=== PATIENT | female | born 1945 | race Caucasian/White ===

== ENCOUNTER → 2017-11-24 09:35 | Outpatient (CLI) | payer MEDICARE, OTHER, SELFPAY ==
[2017-11-24 11:24] LABS: AST(SGOT) 16 U/L (15-37); Alanine Aminotransfer ALT/SGPT 19 U/L (13-56); Albumin, Serum 3.5 g/dL (3.2-5.0); Alkaline Phosphatase 92 U/L (45-117); Cholesterol 258 mg/dL (200); Globulin 3.7 g/dL (2.2-4.2); High Density Lipoprotein 53 mg/dL; Protein, Total 7.2 g/dL (6.4-8.2); Triglycerides 283 mg/dL; Very Low Density Lipoprotein 57 mg/dL (5-40)
[2017-11-29 11:51] LABS: Thyroid Stim Hormone (TSH) 4.05 uIU/mL (0.358-3.74)
== END ==
PROVIDERS: Family Provider Internal Medicine; PCP Internal Medicine; Visit Provider Internal Medicine Cardiovascular Disease
DX: E78.5 Hyperlipidemia, unspecified (principal); Z79.899 Other long term (current) drug therapy
CPT/HCPCS: 36415; 80061; 80076; 84436; 84443

== ENCOUNTER → 2017-12-13 14:56 | Outpatient (CLI) | payer MEDICARE, OTHER, SELFPAY | PROVIDERS: Family Provider Internal Medicine; PCP Internal Medicine; Visit Provider Physician Assistant Medical | DX: R05 Cough (principal) | CPT/HCPCS: 87070; 87205 ==

== ENCOUNTER 2017-12-16 20:20 | Inpatient (IN) | payer MEDICARE, OTHER, SELFPAY ==
[2017-12-16] VITALS (16 sets, daily range): BP systolic 63–185; BP diastolic 38–138; PULSE 92–123; RESP 12–48; TEMP 35.6–39.2; O2SAT 95–100; BMI 35.4; BMI 39.6; BMI 39.7
--- NOTE | 2017-12-16 20:26 | EKG12_ITS ---
Test Reason : SOB Blood Pressure : / mmHG Vent. Rate : 099 BPM Atrial Rate : 099 BPM P-R Int : 154 ms QRS Dur : 094 ms QT Int : 364 ms P-R-T Axes : 073 031 078 degrees QTc Int : 467 ms Normal sinus rhythm Nonspecific ST abnormality Abnormal ECG Confirmed by DAKSHA HERCULES, KATHLEEN ([id number]), writer editor DANYA REILLY ([id number]) on 12/20/2017 8:37:21 AM Referred By: Paty Mullen Confirmed By:KATHLEEN CROOKS MD
--- NOTE | 2017-12-16 20:30 | ED.RN ---
Addendum entered by Jose Balderas 12/16/17 21:07: CORRECTION. PATIENT DID HAVE AN OLD EKG IN MUSE AND GAVE IT TO PHYSICIAN. Original Note: NO OLD EKG'S IN MUSE.
--- NOTE | 2017-12-16 20:32 | RAD_ITS ---
STUDY: X-RAY CHEST REASON FOR EXAM: Female, 72 years old. Shortness of breath TECHNIQUE: Single AP portable view of the chest. COMPARISON: 03/26/2017. FINDINGS: The lungs are clear and expanded. There is no demonstrated pleural abnormality. There is mild cardiac enlargement. Patient status post sternotomy. Normal mediastinum and mariam. Normal visualized pulmonary arteries. Normal visualized aortic arch and descending thoracic aorta. Normal visualized thoracic spine. Normal visualized ribs, clavicles, and shoulders. There is no demonstrated abnormality of the visualized soft tissue structures of the upper abdomen. RAD/Chest 1 View (Portable) IMPRESSION: Cardiomegaly. No acute infiltrate. Electronically Signed: Eric Cole DO at 21:42 EDT , Service support ,
--- NOTE | 2017-12-16 20:42 | RAD_ITS ---
STUDY: X-RAY CHEST REASON FOR EXAM: Female, 72 years old. Intubation TECHNIQUE: A single frontal view of the chest was obtained. COMPARISON: Chest radiograph from the same day FINDINGS: An endotracheal tube terminates about 5.3 cm above the millie. A gastric tube extends into the upper abdomen. The lungs are adequately aerated. There are minimal increased markings in both lung bases. There is no demonstrated pleural abnormality. The cardiac silhouette is normal in size. The mediastinum and hilar regions are unremarkable. Normal visualized pulmonary arteries. There is atherosclerotic calcification of the thoracic aorta. Sternotomy wires and plates are present. There are diffuse degenerative changes of the visualized spine. There are degenerative changes in both shoulders. There is no demonstrated abnormality of the visualized upper abdomen. RAD/Chest 1 View (Portable) IMPRESSION: The endotracheal tube terminates about 5.3 cm above the millie. A gastric tube extends into the upper abdomen. There is bibasilar atelectasis. Electronically Signed: Angie Jamison MD at 22:03 EDT Tel Direct: [phone], Service support ,
[2017-12-16 20:46] LABS: Allen Test POS; Base Excess -2 mmol/L (-2 to +2); Bicarbonate 24.7 mmol/L (22-26); Blood Gas Specimen Type ART; EPAP 7; FI02 40; IPAP 18; PO2 85 mmHG (75-100); RR 12; SITE L Radial; SO2 95 % (95-99); Time Given 2035; Total Carbon Dioxide 26 mmol/L; pCO2 53.1 mmHg (35-45); pH 7.28 (7.35-7.45)
[2017-12-16] MEDS: Etomidate 20 MG/10 ML Vial IV (20:46)
[2017-12-16] MEDS: Rocuronium Bromide 50 MG/5 ML Vial 100 MG IV (20:47)
[2017-12-16 20:51] LABS: Absolute Lymphocyte Count 3.18 X10^3/ul (0.83-4.51); Absolute Neutrophil Count 10.2 X10^3/uL (2.0-7.7); Basophil# 0.08 X10^3/uL; Basophil% 0.5 % (0-1); Eosinophil# 0.05 X10^3/uL; Eosinophils% 0.3 % (0-5); Hematocrit 47.4 % (37-47); Hemoglobin 15.9 g/dl (12.0-15.0); Lymphocyte # 3.18 X10^3/ul (4.0); Mean Corp Hgb Conc 33.5 g/gl (32-36); Mean Corpuscular Hgb 29.6 pg (27.0-32.0); Mean Corpuscular Volume 88.1 fL (81-99); Mean Platelet Vol. 10.6 fl (6.2-12.0); Monocyte# 3.13 X10^3/uL; Monocyte% 18.7 % (0-10); Neutrophil # 10.19 X10^3/uL (2.7-7.7); Platelet Count 362 K/mm3 (150-450); RBC Distribution Width CV 13.7 % (11.6-14.6); RBC Distribution Width SD 43.6 fl (35.1-43.9); Red Blood Count 5.38 M/mm3 (4.2-5.4); White Blood Count 16.7 K/mm3 (4.4-11.0)
--- NOTE | 2017-12-16 20:55 | RAD_ITS ---
STUDY: X-RAY - ABDOMEN/PELVIS REASON FOR EXAM: Female, 72 years old. Gastric tube placement TECHNIQUE: A single AP view of the abdomen and pelvis was obtained. COMPARISON: CT abdomen and pelvis dated June 13, 2016 FINDINGS: There is minimal atelectasis in the lung bases. A gastric tube extends into the mid abdomen. There is an unremarkable bowel gas pattern. There is no demonstrated free abdominal air. There is no demonstrated abnormality of the major organs. Cholecystectomy clips are present. The soft tissues are unremarkable. There are mild degenerative changes in the visualized spine. RAD/Abdomen Single View (Portable) IMPRESSION: The tip of the gastric tube is in the expected location of the antrum of the stomach. Electronically Signed: Angie Jamison MD at 22:06 EDT Tel Direct: [phone], Service support ,
[2017-12-16 20:57] LABS: Differential Indicated SCAN CRITERIA MET; POSITIVE COUNT NO; POSITIVE DIFFERENTIAL YES; POSITIVE MORPHOLOGY NO
[2017-12-16 21:05] LABS: Anion Gap 9 (5-15); BUN 16 mg/dL (7-18); BUN/Creat Ratio 14.2 RATIO (10-20); Calcium,Total 8.5 mg/dL (8.5-10.1); Chloride 100 mmol/L (98-107); Creatinine, Serum 1.13 mg/dL (0.55-1.02); EST Glomerular Filtration Rate 50 mL/min (>60); Est Glom Filt Rate - Afr Amer 61 mL/min (>60); Estimated Creatinine Clearance 43.12 ml/min; Glucose 226 mg/dL (74-106); Potassium 4.4 mmol/L (3.5-5.1); Sodium Level 138 mmol/L (136-145)
--- NOTE | 2017-12-16 21:11 | ED.RN ---
PT WAS INTUBATED AT 2047 7.5 ET TUBE WITH GOOD COLOR CHANGE AND MANUAL VENTILATIONS, 23CM AT LIP LINE; INTUBATED BY DR. BRISENO/ AT 2048 DR. BRISENO PLACED O.G. AND IMMEDIATE RETURN OF BROWN DRAINAGE IN TUBING TO LOW INTERMITTENT SUCTION.
[2017-12-16 21:18] LABS: Reactive Lymphocyte 1+
[2017-12-16] MEDS: Ipratropium/Albuterol Sulfate 3 ML AMPUL.NEB INHALATION (21:18)
[2017-12-16] MEDS: Albuterol 2.5 MG/3 ML VIAL.NEB. INHALATION ×3 (21:18→21:57)
[2017-12-16 21:31] LABS: Bacteria 0 SEEN /hpf (None Seen); Mucous, Urine 0 SEEN /hpf (<or=2+); Squamous Epithelial Cells - UA 0 SEEN /hpf (5-10)
[2017-12-16 21:32] LABS: Color, Urine Yellow (Yellow); Glucose, Dipstick 100 mg/dl (Normal); Ketone-Dipstick Negative (Negative); Leukocyte Esterase-Dipstick Negative /ul (Negative); Nitrite-Dipstick Negative (Negative); Occult Blood-Urine 150 /ul (Negative); Protein-Dipstick 100 mg/dl (Negative); Specific Gravity, Urine 1.025 (1.002-1.030); Urine Bilirubin Dipstick Negative (Negative); Urine Clarity Sl. Cloudy (Clear); Urine Urobilinogen Normal (Normal)
[2017-12-16] MEDS: LORazepam 2 MG/ML Syringe 4 MG IV (21:40)
--- NOTE | 2017-12-16 21:50 | RAD_ITS ---
STUDY: X-RAY CHEST REASON FOR EXAM: Female, 72 years old. Central line placement TECHNIQUE: Single AP portable view of the chest. COMPARISON: 12/16/2017. FINDINGS: Endotracheal tube remains in place with the tip 6 cm above the millie at the thoracic inlet. NG tube tip remains in the stomach. Right subclavian central line in place with the tip in the lower SVC. EKG lead overlying the chest. The lungs are clear and expanded. There is no demonstrated pleural abnormality. Normal size heart. Patient status post sternotomy. Normal mediastinum and mariam. Normal visualized pulmonary arteries. Normal visualized aortic arch and descending thoracic aorta. Normal visualized thoracic spine. Normal visualized ribs, clavicles, and shoulders. There is no demonstrated abnormality of the visualized soft tissue structures of the upper abdomen. RAD/CXR for Line Placement IMPRESSION: Right subclavian central line in place with the tip in the lower SVC. No pneumothorax. Endotracheal tube and NG tube remain in stable position. No acute infiltrate. Electronically Signed: Eric Cole DO at 22:51 EDT , Service support ,
[2017-12-16 21:56] LABS: Amorphous Sediment 2+; Red Blood Cells-Urine 0-5 SEEN /hpf (0-5); White Blood Cells 5-10 SEEN /hpf (0-5)
[2017-12-16] MEDS: Acetaminophen 650 MG Suppository RECTAL (22:03)
[2017-12-16 22:10] LABS: BNP,B-Type NATRIURETIC PEPTIDE 261.8 pg/mL (0-100)
--- NOTE | 2017-12-16 22:12 | ED.VISSUMM ---
- ER Visit Summary Date of Service: 12/16/17 Chief Complaint: Respiratory distress History of Present Illness: The patient is a 72 F was brought to the emergency department by ambulance. Pulse ox upon their arrival was 64%. She was slumped over and not very responsive. CPAP was applied. By the time she arrived her saturation was 96%. She was not alert and communication was limited because of her respiratory distress. was informed. He states the shortness of breath started several days ago. She did have a cough. She nodded yes to productive cough. She also nodded yes to chest pain. Unable to describe quality or severity of the chest pain. She nodded no to any radiation. Per old records and there is no history of PE or DVT. History was limited secondary to patient's severity of illness. Review of old records reveals past history of coronary disease, [place], asthma, hypertension, hypothyroidism, dilated cardiomyopathy and paroxysmal atrial fibrillation. Past surgical history remarkable for four-vessel bypass surgery 2-3 years ago and cataract surgery. states her water quality specialist is Dr. Abraham Aburto. Physical Examination: Blood pressure 185/138, core temperature 102.6, heart rate 99, respiratory rate prior to intubation 52 and saturation of 95% on BiPAP. Blood gas was obtained and reveals acute respiratory failure with hypercapnia and hypoxia. Patient appears pale with cool mottled skin. Pupils are not really active or equal secondary to cataract surgery. TMs normal. Trachea midline. No carotid bruit. There is little to no air movement. Heart is regular. Abdomen is soft and nontender. No abdominal bruit was noted. Extremities were mottled and cool. There is no swelling of the lower extremities, discoloration or palpable cords. She is not alert and unable to assess orientation. She does move all extremities. Test Results: EKG was obtained also sinus rhythm rate of [address]-T wave changes. Portable x-ray #1 reveals rotation possible infiltrate right lower lobe. Portable x-ray #2 after intubation and OG placement reveals proper position of the endotracheal tube and OG tube and there is a difference noted right lower lobe consistent with an early infiltrate. Portable chest x-ray #3 reveals proper lying position of the right subclavian line with no evidence pneumothorax. White count is 16.7 thousand with no shift. BMP is remarkable for creatinine of 1.13 and glucose of 226. Urinalysis unremarkable. Troponin is less than 0.02. BNP is slightly of a 261. Lactate is 2.6. Emergency Department Course and Treatment: Blood gas was obtained to assess patient's acid-base status. After reviewing the results and noting patient has deteriorated she was prepped for oral tracheal intubation by RSI technique. A 7.5 K[place] endotracheal tube was placed without difficulty. Breath sounds were noted bilaterally and wheezing are noted bilaterally. There is appropriate color change on the capnometer. An orogastric tube was placed by me. Because of penicillin allergy and unable to asked patient what type of reaction she had she was treated with 750 mg levofloxacin IV piggyback and 2 g of Azactam. Treatment Plan: Patient has severe sepsis if lactate is greater than 4 by definition she has septic shock and will receive a 30 cc/kg bolus of normal saline. Review of chief executive run sheet revealed an initial blood pressure of 80 when she was hypoxic with a saturation of 64. Disposition: Admit to critical condition to the ICU Impression: 1. Acute respiratory failure with hypercapnia and hypoxia 2. Severe sepsis 3. Community acquired pneumonia 4. Hyperglycemia and type II diabetic 5. History of coronary disease 6. History of hypertension 7. History of dilated cardiomyopathy 8. History of hypothyroidism This note was generated with [employer] dictation software. It may contain incorrect words, spelling, and punctuation that were not noted in review of the chart prior to signing ED Disposition - Plan for ED Patient: Chief Complaint: Shortness of Breath Referrals: Christi Oswald MD [Primary Care Provider] -
[2017-12-16] MEDS: levoFLOXacin IV 750 MG/150 ML BAG 100 MG IV (22:15)
[2017-12-16 22:17] LABS: International Normalized Ratio 1.2; Partial Thromboplast Time 22.8 Seconds (24.1-36.2); Prothrombin Time (Protime)PT. 14.8 SECONDS (11.7-14.9)
--- NOTE | 2017-12-16 22:19 | ED.DCSUM_ITS ---
- ER Visit Summary Date of Service: 12/16/17 Chief Complaint: Respiratory distress History of Present Illness: The patient is a 72 F was brought to the emergency department by ambulance. Pulse ox upon their arrival was 64%. She was slumped over and not very responsive. CPAP was applied. By the time she arrived her saturation was 96%. She was not alert and communication was limited because of her respiratory distress. was informed. He states the shortness of breath started several days ago. She did have a cough. She nodded yes to productive cough. She also nodded yes to chest pain. Unable to describe quality or severity of the chest pain. She nodded no to any radiation. Per old records and there is no history of PE or DVT. History was limited secondary to patient's severity of illness. Review of old records reveals past history of coronary disease, [place], asthma, hypertension, hypothyroidism, dilated cardiomyopathy and paroxysmal atrial fibrillation. Past surgical history remarkable for four-vessel bypass surgery 2-3 years ago and cataract surgery. states her event technician is Dr. Abraham Aburto. Physical Examination: Blood pressure 185/138, core temperature 102.6, heart rate 99, respiratory rate prior to intubation 52 and saturation of 95% on BiPAP. Blood gas was obtained and reveals acute respiratory failure with hypercapnia and hypoxia. Patient appears pale with cool mottled skin. Pupils are not really active or equal secondary to cataract surgery. TMs normal. Trachea midline. No carotid bruit. There is little to no air movement. Heart is regular. Abdomen is soft and nontender. No abdominal bruit was noted. Extremities were mottled and cool. There is no swelling of the lower extremities, discoloration or palpable cords. She is not alert and unable to assess orientation. She does move all extremities. Test Results: EKG was obtained also sinus rhythm rate of [address]- T wave changes. Portable x-ray #1 reveals rotation possible infiltrate right lower lobe. Portable x-ray #2 after intubation and OG placement reveals proper position of the endotracheal tube and OG tube and there is a difference noted right lower lobe consistent with an early infiltrate. Portable chest x-ray #3 reveals proper lying position of the right subclavian line with no evidence pneumothorax. White count is 16.7 thousand with no shift. BMP is remarkable for creatinine of 1.13 and glucose of 226. Urinalysis unremarkable. Troponin is less than 0.02. BNP is slightly of a 261. Lactate is 2.6. Emergency Department Course and Treatment: Blood gas was obtained to assess patient's acid-base status. After reviewing the results and noting patient has deteriorated she was prepped for oral tracheal intubation by RSI technique. A 7.5 [place] endotracheal tube was placed without difficulty. Breath sounds were noted bilaterally and wheezing are noted bilaterally. There is appropriate color change on the capnometer. An orogastric tube was placed by me. Because of penicillin allergy and unable to asked patient what type of reaction she had she was treated with 750 mg levofloxacin IV piggyback and 2 g of Azactam. Treatment Plan: Patient has severe sepsis if lactate is greater than 4 by definition she has septic shock and will receive a 30 cc/kg bolus of normal saline. Review of interactive art director run sheet revealed an initial blood pressure of 80 when she was hypoxic with a saturation of 64. Disposition: Admit to critical condition to the ICU Impression: 1. Acute respiratory failure with hypercapnia and hypoxia 2. Severe sepsis 3. Community acquired pneumonia 4. Hyperglycemia and type II diabetic 5. History of coronary disease 6. History of hypertension 7. History of dilated cardiomyopathy 8. History of hypothyroidism This note was generated with [employer] dictation software. It may contain incorrect words, spelling, and punctuation that were not noted in review of the chart prior to signing ED Disposition - Plan for ED Patient: Chief Complaint: Shortness of Breath Referrals: Christi Oswald MD [Primary Care Provider] -
[2017-12-16 22:32] LABS: Lactic Acid 2.6 mmol/L (0.4-2.0)
[2017-12-16] MEDS: Propofol 10MG/Ml 1,000 MG/100 ML Bottle 3.084 MG CONT INF (22:52)
--- NOTE | 2017-12-16 23:02 | PCM.HP.STD ---
Problem List (1) Asthma Status: Chronic Qualifiers: (2) Restrictive lung disease Status: Chronic (3) Paroxysmal atrial fibrillation Status: Chronic (4) Dilated cardiomyopathy Status: Chronic (5) 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 The patient is a 72 year old F with past medical history as mentioned above presented to the emergency room because of shortness of breath and respiratory distress. At this time, patient is intubated, sedated and on mechanical ventilation. Patient's and daughter were at the bedside and her provided brief history. According to the , patient has been complaining of shortness of breath and productive cough over the last 3 days. Her symptoms has been getting worse over the course of the last 3 days, she saw her doctor 2 years ago who prescribed erythromycin and prednisone. Her symptoms did not get any better and she continued to worsen. called the squad and she was brought to the emergency room. Reportedly, her pulse ox is quite was 64% on room air. According to her physician, patient was not able to communicate and was not alert because of respiratory distress. She was started on CPAP and shortly after, patient became more lethargic, pale with cool mottled skin. She was intubated and started on mechanical ventilation. At this time, she is febrile, heart rate has been around 90s, blood pressure is stable and she is on mechanical ventilation. She had a history of asthma and according to her , it is severe and she has been on inhalers in addition to nebulizer treatment at home. She never been on oxygen at home. She has history of paroxysmal atrial fibrillation and she has been on amiodarone and metoprolol for rate control as well as Eliquis for anti-coagulation. At this time, she is in sinus rhythm. She has history of CAD status post CABG and she has been on aspirin, beta-blockers. Her routine blood work is remarkable for leukocytosis, otherwise unremarkable. Troponin was negative. Lactic acid was 2.6. BNP was 261. Chest x-ray revealed cardiomegaly, obliteration of the left costophrenic angle without evidence of acute infiltrate, consolidation or effusion. EKG revealed sinus rhythm without evidence of acute ischemic changes, rate has been in the 90s. Blood cultures drawn in the ER and she received 1 dose of IV Levaquin and aztreonam in the ER. She is being admitted for acute hypoxic respiratory failure probably due to acute asthma exacerbation and possible community-acquired pneumonia. Past Medical History Past Medical History (Chronic Problems): Chronic Problems (Last Updated 12/16/17 @ 22:38 by Melony Gonzalez MD) 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 heart disease (ASHD) (Chronic) Asthma (Chronic) Restrictive lung disease (Chronic) Paroxysmal atrial fibrillation (Chronic) Nonrheumatic tricuspid valve regurgitation (Chronic) Dilated cardiomyopathy (Chronic) 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) HTN (hypertension) (Chronic) Diabetes mellitus (Chronic) HLD (hyperlipidemia) (Chronic) DM type 2 (diabetes mellitus, type 2) (Chronic) Hypogammaglobulinemia (Chronic) Morbid obesity (Chronic) Migraines (Chronic) BARTOLO (obstructive sleep apnea) (Chronic) CAD (coronary artery disease) (Chronic) Allergies Beta-Blockers (Beta-Adrenergic Bloc Allergy (Verified 12/16/17 20:27) Shortness of breath doxycycline Allergy (Verified 12/16/17 20:27) Hives Penicillins Allergy (Verified 12/16/17 20:27) Rash red dye Allergy (Verified 12/16/17 20:27) Unknown Sulfa (Sulfonamide Antibiotics) Allergy (Verified 12/16/17 20:27) Rash theophylline Allergy (Verified 12/16/17 20:27) Rash codeine Adverse Reaction (Verified 12/16/17 20:27) Nausea Home Medications: Ambulatory Orders Medication Instructions Recorded Budesonide/Formoterol 160/4.5 2 puff INHALATION BID PRN 11/09/15 [Symbicort 160/4.5 Mcg Inhaler (SP)] Montelukast [Singulair] 10 mg PO DAILY 11/09/15 Acetaminophen [Tylenol Tablet] 650 mg PO Q8H PRN PRN #0 tab 12/04/15 Furosemide [Lasix] 20 mg PO DAILY #30 tab 12/04/15 Acetaminophen/Butalbital/Caffe 1 tab PO Q6H PRN PRN 03/26/17 [Fioricet] Ezetimibe [Zetia] 10 mg PO QHS 03/26/17 Metoprolol Tartrate [Lopressor 6.25 mg PO BID 03/26/17 (beta daniel)] Potassium Chloride [K-Dur] 20 meq PO TID 03/26/17 Aspirin E.C. [Ecotrin] 81 mg PO DAILY@0800 #60 tab 03/28/17 Carvedilol [Coreg (Beta Daniel)] 6.25 mg PO BID #60 tab 03/28/17 apixaban 5 mg tablet 5 mg PO BID #180 tab 08/19/17 amiodarone 200 mg tablet 100 mg PO QDAY tab 08/22/17 albuterol sulfate HFA 90 2 puff INHALATION Q4H PRN #1 device 09/08/17 mcg/actuation aerosol inhaler benzonatate 100 mg capsule 100 mg PO Q6H 10/19/17 fluticasone 50 mcg/actuation nasal 50 mcg INTRANASAL BID PRN 10/19/17 spray,suspension guaifenesin ER 600 mg tablet, 600 mg PO Q12H PRN 10/19/17 extended release 12 hr cyclobenzaprine 5 mg tablet 5 mg PO TID PRN #10 tab 10/21/17 levalbuterol 0.63 mg/3 mL solution 0.63 mg INHALATION Q4H PRN #120 10/28/17 for nebulization vial levothyroxine 50 mcg tablet 50 mcg PO QDAY #90 tab 12/02/17 prednisone 20 mg tablet 60 mg PO QDAY #15 tab 12/13/17 azithromycin 250 mg tablet 250 mg PO QDAY #6 tab 12/15/17 benzonatate 100 mg capsule 100 mg PO TID PRN #30 cap 12/15/17 Surgical History: cholecystectomy, coronary bypass surgery, hysterectomy Psychiatric History: No pertinent psych hx [employer] History: No pertinent [employer] history Lives: Spouse/ Significant Other Smoking Status: Never smoker Alcohol: None Drugs: None - *Family History Paternal History Items: Heart Disease Maternal History Items: Cancer Review of Systems Constitutional: Reports: - - Unobtainable, patient is intubated and sedated., - Eyes: Reports: - - Unobtainable, patient is intubated and sedated. HEENT: Reports: - - Unobtainable, patient is intubated and sedated. Cardiovascular: Reports: - - Unobtainable, patient is intubated and sedated. Respiratory: Reports: - - Unobtainable, patient is intubated and sedated. Gastrointestinal: Reports: - - Unobtainable, patient is intubated and sedated. Genitourinary: Reports: - - Unobtainable, patient is intubated and sedated. Musculoskeletal: Reports: - - Unobtainable, patient is intubated and sedated. Neurological: Reports: - - Unobtainable, patient is intubated and sedated. Psychiatric: Reports: - - Unobtainable, patient is intubated and sedated. VTE Information - Inpt Only VTE Present on Admission: No VTE Mechan Device Prophylaxis: SCD's VTE Pharm Prophylaxis ordered?: Yes - Physical Exam General: - - Intubated, sedated. HEENT: Atraumatic, PERRLA, EOMI Oral: Moist Mucosa, No Gingival or Mucosal Lesions/ Ulcerations Neck: Supple, No JVD, Negative Carotid Bruits, Trachea Midline, Thyroid Normal Size and Texture Lungs: Clear to auscultation, No rhonchi, No rales, Diminished, Wheezes Cardiovascular: Regular rate, Regular Rhythm, Normal S1, Normal S2, PMI Normal, Tachycardic Abdomen: Bowel Sounds Present, Soft, Non Tender, Non-Distended, No Hepato-splenomegaly, Obese Extremities: No clubbing, No cyanosis, No edema Skin: No rashes, No breakdown Lymphatic: No Cervical, Supraclavicular, or Inguinal Adenopathy Neurological: - - Unable to examine, patient is intubated and sedated. Psych/Mental Status: - - Unable to assess, patient is sedated. Vital Signs Temp Pulse Resp BP Pulse Ox 102.5 F H 94 16 111/99 H 97 12/16/17 22:33 12/16/17 22:33 12/16/17 22:33 12/16/17 22:33 12/16/17 22:33 Oxygen Delivery Method Mechanical Ventilator Weight: 226 lb 10.163 oz Body Mass Index (BMI) 35.4 Laboratory Tests Past 24 Hrs 12/16/17 12/16/17 12/16/17 20:34 20:34 20:34 WBC 16.7 H RBC 5.38 Hgb 15.9 H Hct 47.4 H MCV 88.1 MCH 29.6 MCHC 33.5 RDW 13.7 RDW Differential 43.6 Plt Count 362 MPV 10.6 Immature Gran % (Auto) 0.500 Neut % (Auto) 61.0 Lymph % (Auto) 19.0 [place] % (Auto) 18.7 H Eos % (Auto) 0.3 Baso % (Auto) 0.5 Absolute Neuts (auto) 10.2 H Absolute Lymphs (auto) 3.18 Total Counted Not Reportable Differential Comment Diff Path Review May foll Reactive Lymphocytes 1+ PT INR APTT Specimen Type Sample Site pH Bicarbonate Actual POC Total CO2 Base Excess O2 Saturation O2 % ABG pCO2 ABG pO2 Anibal Test Respiration Rate O2 Delivery Device EPAP IPAP Blood Gas Notified Whom Blood Gas Notified Time Sodium 138 Potassium 4.4 Chloride 100 Carbon Dioxide 29.0 Anion Gap 9 BUN 16 Creatinine 1.13 H Estim Creat Clear Calc 43.12 Est GFR (MDRD) Af Amer 61 Est GFR (MDRD) Non-Af 50 L BUN/Creatinine Ratio 14.2 Glucose 226 H Lactic Acid Calcium 8.5 Troponin I < 0.02 B-Natriuretic Peptide 261.8 H Urine Color Urine Clarity Urine pH Ur Specific [place] Urine Protein Urine Glucose (UA) Urine Ketones Urine Occult Blood Urine Nitrite Urine Bilirubin Urine Urobilinogen Ur Leukocyte Esterase Urine RBC Urine WBC Ur Squamous Epith Cells Amorphous Sediment Urine Bacteria Urine Mucus 12/16/17 12/16/17 12/16/17 20:39 21:25 21:50 WBC RBC Hgb Hct MCV MCH MCHC RDW RDW Differential Plt Count MPV Immature Gran % (Auto) Neut % (Auto) Lymph % (Auto) [place] % (Auto) Eos % (Auto) Baso % (Auto) Absolute Neuts (auto) Absolute Lymphs (auto) Total Counted Differential Comment Diff Path Review Reactive Lymphocytes PT 14.8 INR 1.2 APTT 22.8 L Specimen Type ART Sample Site L Radial pH 7.28 L Bicarbonate Actual 24.7 POC Total CO2 26 Base Excess -2 O2 Saturation 95 O2 % 40 ABG pCO2 53.1 H ABG pO2 85 Anibal Test POS Respiration Rate 12 O2 Delivery Device Bi / C PAP EPAP 7 IPAP 18 Blood Gas Notified Whom ED Blood Gas Notified Time 2034 Sodium Potassium Chloride Carbon Dioxide Anion Gap BUN Creatinine Estim Creat Clear Calc Est GFR (MDRD) Af Amer Est GFR (MDRD) Non-Af BUN/Creatinine Ratio Glucose Lactic Acid Calcium Troponin I B-Natriuretic Peptide Urine Color Yellow Urine Clarity Sl. Cloudy Urine pH 6.0 Ur Specific [place] 1.025 Urine Protein 100 H Urine Glucose (UA) 100 H Urine Ketones Negative Urine Occult Blood 150 H Urine Nitrite Negative Urine Bilirubin Negative Urine Urobilinogen Normal Ur Leukocyte Esterase Negative Urine RBC 0-5 SEEN Urine WBC 5-10 SEEN Ur Squamous Epith Cells 0 SEEN Amorphous Sediment 2+ Urine Bacteria 0 SEEN Urine Mucus 0 SEEN 12/16/17 21:50 WBC RBC Hgb Hct MCV MCH MCHC RDW RDW Differential Plt Count MPV Immature Gran % (Auto) Neut % (Auto) Lymph % (Auto) [place] % (Auto) Eos % (Auto) Baso % (Auto) Absolute Neuts (auto) Absolute Lymphs (auto) Total Counted Differential Comment Diff Path Review Reactive Lymphocytes PT INR APTT Specimen Type Sample Site pH Bicarbonate Actual POC Total CO2 Base Excess O2 Saturation O2 % ABG pCO2 ABG pO2 Anibal Test Respiration Rate O2 Delivery Device EPAP IPAP Blood Gas Notified Whom Blood Gas Notified Time Sodium Potassium Chloride Carbon Dioxide Anion Gap BUN Creatinine Estim Creat Clear Calc Est GFR (MDRD) Af Amer Est GFR (MDRD) Non-Af BUN/Creatinine Ratio Glucose Lactic Acid 2.6 H Calcium Troponin I B-Natriuretic Peptide Urine Color Urine Clarity Urine pH Ur Specific [place] Urine Protein Urine Glucose (UA) Urine Ketones Urine Occult Blood Urine Nitrite Urine Bilirubin Urine Urobilinogen Ur Leukocyte Esterase Urine RBC Urine WBC Ur Squamous Epith Cells Amorphous Sediment Urine Bacteria Urine Mucus Clinical Impression(s) from Imaging Studies Chest X-Ray 12/16/17 20:32 IMPRESSION: Cardiomegaly. No acute infiltrate. Electronically Signed: Eric Cole DO at 21:42 EDT , Service support , Chest X-Ray 12/16/17 20:42 IMPRESSION: The endotracheal tube terminates about 5.3 cm above the millie. A gastric tube extends into the upper abdomen. There is bibasilar atelectasis. Electronically Signed: Angie Jamison MD at 22:03 EDT Tel Direct: [phone], Service support , KUB X-Ray 12/16/17 20:55 IMPRESSION: The tip of the gastric tube is in the expected location of the antrum of the stomach. Electronically Signed: Angie Jamison MD at 22:06 EDT Tel Direct: [phone], Service support , Chest X-Ray 12/16/17 21:50 IMPRESSION: Right subclavian central line in place with the tip in the lower SVC. No pneumothorax. Endotracheal tube and NG tube remain in stable position. No acute infiltrate. Electronically Signed: Eric Cole DO at 22:51 EDT , Service support , Assessment/Plan This is a 72 years old female patient presented to the medicine because of significant shortness of breath and respiratory distress with pulse oximeter of 64% on room air, she was sleepy and lethargic which worsened shortly after arrival, intubated and started on mechanical ventilation for acute hypoxic respiratory failure which is probably due to acute asthma exacerbation versus possible early community acquired pneumonia. #1 acute hypoxic respiratory failure: Patient was on erythromycin and prednisone as outpatient for symptoms of productive cough and shortness of breath as well as wheezing. She has history of uncontrolled asthma according to the . She is not on home oxygen. Chest x-ray showed cardiomegaly and obliteration of the left costophrenic angle, no obvious infiltrate. She is in severe sepsis based on leukocytosis, acute respiratory failure and elevated lactic acid as well as probable source of infection. Blood cultures done, received 1 dose of IV Levaquin and aztreonam. ABG revealed pH of 7.28, PCO2 53 and PO2 of 85. Plan: Admit to ICU, continue same vent settings, ventilator care per protocol, continue IV propofol for sedation, urine culture, DuoNeb every 4 hours, IV Solu-Medrol, IV Levaquin, respiratory panel for viruses, critical care consult. #2 acute asthma exacerbation: Reportedly, patient had a history of asthma which seemed to be uncontrolled. In route to the hospital, pulse ox was 64% on room air. At this time, patient is intubated and on mechanical ventilation. Plan: Continue vent support, sedation, bronchodilators, IV steroids, IV antibiotics. #3 severe sepsis: This is probably secondary to severe hypoxia and suspected pneumonia. Lactic acid is elevated at 2.6. She is febrile with significant leukocytosis also she has been on steroids. Plan as above, blood culture, urine culture, IV antibiotics, repeat lactic acid in 3 hours, IV fluids. #4 suspected community acquired pneumonia: Chest x-ray reviewed, obliteration of the left costophrenic angle, pneumonia cannot be ruled out. Plan: IV Levaquin, follow blood and urine cultures, bronchodilators, repeat lactic acid in 3 hours. #5 paroxysmal atrial fibrillation: Rate has been stable in the 90s, blood pressure stable. Plan: IV amiodarone home dose, IV metoprolol 5 mg every 6 hours with holding parameters. Eliquis will be held. #6 CAD status post CABG: EKG reviewed, no acute ischemic changes. Troponin is negative. #7 type 2 diabetes mellitus: Keep on n.p.o., Accu-Cheks every 6 hours, insulin sliding scale. #8 hypertension: Blood pressure stable, IV metoprolol as above, hold all medications. #9 hypothyroidism: Hold levothyroxine for now. #10 DVT prophylaxis: Subcu Lovenox. Other chronic medical problems: #1 obstructive sleep apnea. #2 dilated cardiomyopathy. #3 restrictive lung disease. #4 migraine. This note was generated with [email or web address] dictation software. It may contain incorrect words, spelling, and punctuation that were not noted in checking the note before signing. Code Visit Inpatient E&M: 82036 Init Hosp L3
--- NOTE | 2017-12-16 23:05 | HP.PCM_ITS ---
Problem List (1) Asthma Status: Chronic Qualifiers: (2) Restrictive lung disease Status: Chronic (3) Paroxysmal atrial fibrillation Status: Chronic (4) Dilated cardiomyopathy Status: Chronic (5) 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 The patient is a 72 year old F with past medical history as mentioned above presented to the emergency room because of shortness of breath and respiratory distress. At this time, patient is intubated, sedated and on mechanical ventilation. Patient's and daughter were at the bedside and her provided brief history. According to the , patient has been complaining of shortness of breath and productive cough over the last 3 days. Her symptoms has been getting worse over the course of the last 3 days, she saw her doctor 2 years ago who prescribed erythromycin and prednisone. Her symptoms did not get any better and she continued to worsen. called the squad and she was brought to the emergency room. Reportedly, her pulse ox is quite was 64% on room air. According to her physician, patient was not able to communicate and was not alert because of respiratory distress. She was started on CPAP and shortly after, patient became more lethargic, pale with cool mottled skin. She was intubated and started on mechanical ventilation. At this time, she is febrile, heart rate has been around 90s, blood pressure is stable and she is on mechanical ventilation. She had a history of asthma and according to her , it is severe and she has been on inhalers in addition to nebulizer treatment at home. She never been on oxygen at home. She has history of paroxysmal atrial fibrillation and she has been on amiodarone and metoprolol for rate control as well as Eliquis for anti-coagulation. At this time, she is in sinus rhythm. She has history of CAD status post CABG and she has been on aspirin, beta-blockers. Her routine blood work is remarkable for leukocytosis, otherwise unremarkable. Troponin was negative. Lactic acid was 2.6. BNP was 261. Chest x-ray revealed cardiomegaly, obliteration of the left costophrenic angle without evidence of acute infiltrate, consolidation or effusion. EKG revealed sinus rhythm without evidence of acute ischemic changes , rate has been in the 90s. Blood cultures drawn in the ER and she received 1 dose of IV Levaquin and aztreonam in the ER. She is being admitted for acute hypoxic respiratory failure probably due to acute asthma exacerbation and possible community-acquired pneumonia. Past Medical History Past Medical History (Chronic Problems): Chronic Problems (Last Updated 12/16/17 @ 22:38 by Melony Gonzalez MD) 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 heart disease (ASHD) (Chronic) Asthma (Chronic) Restrictive lung disease (Chronic) Paroxysmal atrial fibrillation (Chronic) Nonrheumatic tricuspid valve regurgitation (Chronic) Dilated cardiomyopathy (Chronic) 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) HTN (hypertension) (Chronic) Diabetes mellitus (Chronic) HLD (hyperlipidemia) (Chronic) DM type 2 (diabetes mellitus, type 2) (Chronic) Hypogammaglobulinemia (Chronic) Morbid obesity (Chronic) Migraines (Chronic) BARTOLO (obstructive sleep apnea) (Chronic) CAD (coronary artery disease) (Chronic) Allergies Beta-Blockers (Beta-Adrenergic Bloc Allergy (Verified 12/16/17 20:27) Shortness of breath doxycycline Allergy (Verified 12/16/17 20:27) Hives Penicillins Allergy (Verified 12/16/17 20:27) Rash red dye Allergy (Verified 12/16/17 20:27) Unknown Sulfa (Sulfonamide Antibiotics) Allergy (Verified 12/16/17 20:27) Rash theophylline Allergy (Verified 12/16/17 20:27) Rash codeine Adverse Reaction (Verified 12/16/17 20:27) Nausea Home Medications: Ambulatory Orders Medication Instructions Recorded Budesonide/Formoterol 160/4.5 2 puff INHALATION BID PRN 11/09/15 [Symbicort 160/4.5 Mcg Inhaler (SP)] Montelukast [Singulair] 10 mg PO DAILY 11/09/15 Acetaminophen [Tylenol Tablet] 650 mg PO Q8H PRN PRN #0 tab 12/04/15 Furosemide [Lasix] 20 mg PO DAILY #30 tab 12/04/15 Acetaminophen/Butalbital/Caffe 1 tab PO Q6H PRN PRN 03/26/17 [Fioricet] Ezetimibe [Zetia] 10 mg PO QHS 03/26/17 Metoprolol Tartrate [Lopressor 6.25 mg PO BID 03/26/17 (beta daniel)] Potassium Chloride [K-Dur] 20 meq PO TID 03/26/17 Aspirin E.C. [Ecotrin] 81 mg PO DAILY@0800 #60 tab 03/28/17 Carvedilol [Coreg (Beta Daniel)] 6.25 mg PO BID #60 tab 03/28/17 apixaban 5 mg tablet 5 mg PO BID #180 tab 08/19/17 amiodarone 200 mg tablet 100 mg PO QDAY tab 08/22/17 albuterol sulfate HFA 90 2 puff INHALATION Q4H PRN #1 device 09/08/17 mcg/actuation aerosol inhaler benzonatate 100 mg capsule 100 mg PO Q6H 10/19/17 fluticasone 50 mcg/actuation nasal 50 mcg INTRANASAL BID PRN 10/19/17 spray,suspension guaifenesin ER 600 mg tablet, 600 mg PO Q12H PRN 10/19/17 extended release 12 hr cyclobenzaprine 5 mg tablet 5 mg PO TID PRN #10 tab 10/21/17 levalbuterol 0.63 mg/3 mL solution 0.63 mg INHALATION Q4H PRN #120 10/28/17 for nebulization vial levothyroxine 50 mcg tablet 50 mcg PO QDAY #90 tab 12/02/17 prednisone 20 mg tablet 60 mg PO QDAY #15 tab 12/13/17 azithromycin 250 mg tablet 250 mg PO QDAY #6 tab 12/15/17 benzonatate 100 mg capsule 100 mg PO TID PRN #30 cap 12/15/17 Surgical History: cholecystectomy, coronary bypass surgery, hysterectomy Psychiatric History: No pertinent psych hx [employer] History: No pertinent [employer] history Lives: Spouse/ Significant Other Smoking Status: Never smoker Alcohol: None Drugs: None - *Family History Paternal History Items: Heart Disease Maternal History Items: Cancer Review of Systems Constitutional: Reports: - - Unobtainable, patient is intubated and sedated., - Eyes: Reports: - - Unobtainable, patient is intubated and sedated. HEENT: Reports: - - Unobtainable, patient is intubated and sedated. Cardiovascular: Reports: - - Unobtainable, patient is intubated and sedated. Respiratory: Reports: - - Unobtainable, patient is intubated and sedated. Gastrointestinal: Reports: - - Unobtainable, patient is intubated and sedated. Genitourinary: Reports: - - Unobtainable, patient is intubated and sedated. Musculoskeletal: Reports: - - Unobtainable, patient is intubated and sedated. Neurological: Reports: - - Unobtainable, patient is intubated and sedated. Psychiatric: Reports: - - Unobtainable, patient is intubated and sedated. VTE Information - Inpt Only VTE Present on Admission: No VTE Mechan Device Prophylaxis: SCD's VTE Pharm Prophylaxis ordered?: Yes - Physical Exam General: - - Intubated, sedated. HEENT: Atraumatic, PERRLA, EOMI Oral: Moist Mucosa, No Gingival or Mucosal Lesions/ Ulcerations Neck: Supple, No JVD, Negative Carotid Bruits, Trachea Midline, Thyroid Normal Size and Texture Lungs: Clear to auscultation, No rhonchi, No rales, Diminished, Wheezes Cardiovascular: Regular rate, Regular Rhythm, Normal S1, Normal S2, PMI Normal, Tachycardic Abdomen: Bowel Sounds Present, Soft, Non Tender, Non-Distended, No Hepato- splenomegaly, Obese Extremities: No clubbing, No cyanosis, No edema Skin: No rashes, No breakdown Lymphatic: No Cervical, Supraclavicular, or Inguinal Adenopathy Neurological: - - Unable to examine, patient is intubated and sedated. Psych/Mental Status: - - Unable to assess, patient is sedated. Vital Signs Temp Pulse Resp BP Pulse Ox 102.5 F H 94 16 111/99 H 97 12/16/17 22:33 12/16/17 22:33 12/16/17 22:33 12/16/17 22:33 12/16/17 22:33 Oxygen Delivery Method Mechanical Ventilator Weight: 226 lb 10.163 oz Body Mass Index (BMI) 35.4 Laboratory Tests Past 24 Hrs 12/16/17 12/16/17 12/16/17 20:34 20:34 20:34 WBC 16.7 H RBC 5.38 Hgb 15.9 H Hct 47.4 H MCV 88.1 MCH 29.6 MCHC 33.5 RDW 13.7 RDW Differential 43.6 Plt Count 362 MPV 10.6 Immature Gran % (Auto) 0.500 Neut % (Auto) 61.0 Lymph % (Auto) 19.0 [place] % (Auto) 18.7 H Eos % (Auto) 0.3 Baso % (Auto) 0.5 Absolute Neuts (auto) 10.2 H Absolute Lymphs (auto) 3.18 Total Counted Not Reportable Differential Comment Diff Path Review May foll Reactive Lymphocytes 1+ PT INR APTT Specimen Type Sample Site pH Bicarbonate Actual POC Total CO2 Base Excess O2 Saturation O2 % ABG pCO2 ABG pO2 Anibal Test Respiration Rate O2 Delivery Device EPAP IPAP Blood Gas Notified Whom Blood Gas Notified Time Sodium 138 Potassium 4.4 Chloride 100 Carbon Dioxide 29.0 Anion Gap 9 BUN 16 Creatinine 1.13 H Estim Creat Clear Calc 43.12 Est GFR (MDRD) Af Amer 61 Est GFR (MDRD) Non-Af 50 L BUN/Creatinine Ratio 14.2 Glucose 226 H Lactic Acid Calcium 8.5 Troponin I < 0.02 B-Natriuretic Peptide 261.8 H Urine Color Urine Clarity Urine pH Ur Specific [place] Urine Protein Urine Glucose (UA) Urine Ketones Urine Occult Blood Urine Nitrite Urine Bilirubin Urine Urobilinogen Ur Leukocyte Esterase Urine RBC Urine WBC Ur Squamous Epith Cells Amorphous Sediment Urine Bacteria Urine Mucus 12/16/17 12/16/17 12/16/17 20:39 21:25 21:50 WBC RBC Hgb Hct MCV MCH MCHC RDW RDW Differential Plt Count MPV Immature Gran % (Auto) Neut % (Auto) Lymph % (Auto) [place] % (Auto) Eos % (Auto) Baso % (Auto) Absolute Neuts (auto) Absolute Lymphs (auto) Total Counted Differential Comment Diff Path Review Reactive Lymphocytes PT 14.8 INR 1.2 APTT 22.8 L Specimen Type ART Sample Site L Radial pH 7.28 L Bicarbonate Actual 24.7 POC Total CO2 26 Base Excess -2 O2 Saturation 95 O2 % 40 ABG pCO2 53.1 H ABG pO2 85 Anibal Test POS Respiration Rate 12 O2 Delivery Device Bi / C PAP EPAP 7 IPAP 18 Blood Gas Notified Whom ED Blood Gas Notified Time 2034 Sodium Potassium Chloride Carbon Dioxide Anion Gap BUN Creatinine Estim Creat Clear Calc Est GFR (MDRD) Af Amer Est GFR (MDRD) Non-Af BUN/Creatinine Ratio Glucose Lactic Acid Calcium Troponin I B-Natriuretic Peptide Urine Color Yellow Urine Clarity Sl. Cloudy Urine pH 6.0 Ur Specific [place] 1.025 Urine Protein 100 H Urine Glucose (UA) 100 H Urine Ketones Negative Urine Occult Blood 150 H Urine Nitrite Negative Urine Bilirubin Negative Urine Urobilinogen Normal Ur Leukocyte Esterase Negative Urine RBC 0-5 SEEN Urine WBC 5-10 SEEN Ur Squamous Epith Cells 0 SEEN Amorphous Sediment 2+ Urine Bacteria 0 SEEN Urine Mucus 0 SEEN 12/16/17 21:50 WBC RBC Hgb Hct MCV MCH MCHC RDW RDW Differential Plt Count MPV Immature Gran % (Auto) Neut % (Auto) Lymph % (Auto) [place] % (Auto) Eos % (Auto) Baso % (Auto) Absolute Neuts (auto) Absolute Lymphs (auto) Total Counted Differential Comment Diff Path Review Reactive Lymphocytes PT INR APTT Specimen Type Sample Site pH Bicarbonate Actual POC Total CO2 Base Excess O2 Saturation O2 % ABG pCO2 ABG pO2 Anibal Test Respiration Rate O2 Delivery Device EPAP IPAP Blood Gas Notified Whom Blood Gas Notified Time Sodium Potassium Chloride Carbon Dioxide Anion Gap BUN Creatinine Estim Creat Clear Calc Est GFR (MDRD) Af Amer Est GFR (MDRD) Non-Af BUN/Creatinine Ratio Glucose Lactic Acid 2.6 H Calcium Troponin I B-Natriuretic Peptide Urine Color Urine Clarity Urine pH Ur Specific [place] Urine Protein Urine Glucose (UA) Urine Ketones Urine Occult Blood Urine Nitrite Urine Bilirubin Urine Urobilinogen Ur Leukocyte Esterase Urine RBC Urine WBC Ur Squamous Epith Cells Amorphous Sediment Urine Bacteria Urine Mucus Clinical Impression(s) from Imaging Studies Chest X-Ray 12/16/17 20:32 IMPRESSION: Cardiomegaly. No acute infiltrate. Electronically Signed: Eric Cole DO at 21:42 EDT , Service support , Chest X-Ray 12/16/17 20:42 IMPRESSION: The endotracheal tube terminates about 5.3 cm above the millie. A gastric tube extends into the upper abdomen. There is bibasilar atelectasis. Electronically Signed: Angie Jamison MD at 22:03 EDT Tel Direct: [phone], Service support , KUB X-Ray 12/16/17 20:55 IMPRESSION: The tip of the gastric tube is in the expected location of the antrum of the stomach. Electronically Signed: Angie Jamison MD at 22:06 EDT Tel Direct: [phone], Service support , Chest X-Ray 12/16/17 21:50 IMPRESSION: Right subclavian central line in place with the tip in the lower SVC. No pneumothorax. Endotracheal tube and NG tube remain in stable position. No acute infiltrate. Electronically Signed: Eric Cole DO at 22:51 EDT , Service support , Assessment/Plan This is a 72 years old female patient presented to the medicine because of significant shortness of breath and respiratory distress with pulse oximeter of 64% on room air, she was sleepy and lethargic which worsened shortly after arrival, intubated and started on mechanical ventilation for acute hypoxic respiratory failure which is probably due to acute asthma exacerbation versus possible early community acquired pneumonia. #1 acute hypoxic respiratory failure: Patient was on erythromycin and prednisone as outpatient for symptoms of productive cough and shortness of breath as well as wheezing. She has history of uncontrolled asthma according to the . She is not on home oxygen. Chest x-ray showed cardiomegaly and obliteration of the left costophrenic angle, no obvious infiltrate. She is in severe sepsis based on leukocytosis, acute respiratory failure and elevated lactic acid as well as probable source of infection. Blood cultures done, received 1 dose of IV Levaquin and aztreonam. ABG revealed pH of 7.28, PCO2 53 and PO2 of 85. Plan: Admit to ICU, continue same vent settings, ventilator care per protocol, continue IV propofol for sedation, urine culture, DuoNeb every 4 hours, IV Solu-Medrol, IV Levaquin, respiratory panel for viruses, critical care consult. #2 acute asthma exacerbation: Reportedly, patient had a history of asthma which seemed to be uncontrolled. In route to the hospital, pulse ox was 64% on room air. At this time, patient is intubated and on mechanical ventilation. Plan: Continue vent support, sedation, bronchodilators, IV steroids, IV antibiotics. #3 severe sepsis: This is probably secondary to severe hypoxia and suspected pneumonia. Lactic acid is elevated at 2.6. She is febrile with significant leukocytosis also she has been on steroids. Plan as above, blood culture, urine culture, IV antibiotics, repeat lactic acid in 3 hours, IV fluids. #4 suspected community acquired pneumonia: Chest x-ray reviewed, obliteration of the left costophrenic angle, pneumonia cannot be ruled out. Plan: IV Levaquin, follow blood and urine cultures, bronchodilators, repeat lactic acid in 3 hours. #5 paroxysmal atrial fibrillation: Rate has been stable in the 90s, blood pressure stable. Plan: IV amiodarone home dose, IV metoprolol 5 mg every 6 hours with holding parameters. Eliquis will be held. #6 CAD status post CABG: EKG reviewed, no acute ischemic changes. Troponin is negative. #7 type 2 diabetes mellitus: Keep on n.p.o., Accu-Cheks every 6 hours, insulin sliding scale. #8 hypertension: Blood pressure stable, IV metoprolol as above, hold all medications. #9 hypothyroidism: Hold levothyroxine for now. #10 DVT prophylaxis: Subcu Lovenox. Other chronic medical problems: #1 obstructive sleep apnea. #2 dilated cardiomyopathy. #3 restrictive lung disease. #4 migraine. This note was generated with [employer] dictation software. It may contain incorrect words, spelling, and punctuation that were not noted in checking the note before signing. Code Visit Inpatient E&M: 98653 Init Hosp L3
[2017-12-16] MEDS: 0.9% Normal Saline 1,000 ML 100 ML IV (23:43)
[2017-12-17] VITALS (44 sets, daily range): BP systolic 80–136; BP diastolic 51–70; PULSE 57–87; RESP 16–18; TEMP 37.7–38.8; O2SAT 94–100
[2017-12-17 00:01] LABS: Base Excess -1 mmol/L (-2 to +2); Bicarbonate 24.1 mmol/L (22-26); Blood Gas Specimen Type ART; FI02 40; Mode A-C; O2 Delivery Device Vent; PEEP 5; PO2 103 mmHG (75-100); RR 16; SITE R Radial; SO2 98 % (95-99); Time Given 2349; Total Carbon Dioxide 25 mmol/L; Vt 450; pCO2 37.9 mmHg (35-45); pH 7.41 (7.35-7.45)
[2017-12-17 00:36] LABS: Bedside Glucose 198 mg/dL (70-110)
[2017-12-17] MEDS: 0.9% Normal Saline 1,000 ML 999 ML IV (01:25)
[2017-12-17 01:27] LABS: M R Staph aureus DNA By PCR Negative (Negative); Probe Check PASS; Specimen Processing Control PASS
[2017-12-17 01:53] LABS: Reflex Lactate? Y
[2017-12-17 02:05] LABS: Lactic Acid 1.9 mmol/L (0.4-2.0)
[2017-12-17] MEDS: 0.9% Normal Saline 1,000 ML 100 ML IV (04:22)
[2017-12-17 04:28] LABS: Absolute Lymphocyte Count 0.44 X10^3/ul (0.83-4.51); Absolute Neutrophil Count 7.4 X10^3/uL (2.0-7.7); Basophil# 0.02 X10^3/uL; Basophil% 0.2 % (0-1); Differential Indicated SCAN CRITERIA MET; Hematocrit 39.4 % (37-47); Hemoglobin 13.1 g/dl (12.0-15.0); Lymphocyte # 0.44 X10^3/ul (4.0); Lymphocyte % 5.2 % (19-41); Mean Corp Hgb Conc 33.2 g/gl (32-36); Mean Corpuscular Hgb 29.1 pg (27.0-32.0); Mean Corpuscular Volume 87.6 fL (81-99); Mean Platelet Vol. 10.3 fl (6.2-12.0); Monocyte# 0.59 X10^3/uL; Neutrophil # 7.35 X10^3/uL (2.7-7.7); Neutrophil % 87.4 % (47-70); POSITIVE COUNT NO; POSITIVE DIFFERENTIAL YES; POSITIVE MORPHOLOGY NO; Platelet Count 212 K/mm3 (150-450); RBC Distribution Width CV 13.7 % (11.6-14.6); RBC Distribution Width SD 44.2 fl (35.1-43.9); White Blood Count 8.4 K/mm3 (4.4-11.0)
--- NOTE | 2017-12-17 04:35 | RAD_ITS ---
STUDY: X-RAY CHEST REASON FOR EXAM: Female, 72 years old. Scapular TECHNIQUE: 1 view COMPARISON: December 16, 2017 FINDINGS: There continues to be mild cardiomegaly with median sternotomy wires in place. There is no indication of acute pneumonia or failure but there is now seen blunting of the left costophrenic angle. It isn't on the right subclavian vein has its tip at the cavoatrial junction. An NG tube and ET tube identified with the ET tube now approximately 1 cm above the millie. The cerebellar may be due to the way the image was obtained Normal visualized thoracic spine. Normal visualized ribs, clavicles, and shoulders. There is no demonstrated abnormality of the visualized soft tissue structures of the upper abdomen. RAD/Chest 1 View (Portable) IMPRESSION: Moderate cardiomegaly. No failure. No pneumonia. Pleural reactive change in the left costophrenic angle Electronically Signed: Donny Bee, at 8:37 EDT Tel , Service support ,
[2017-12-17 05:12] LABS: Anion Gap 10 (5-15); BUN 19 mg/dL (7-18); BUN/Creat Ratio 22.8 RATIO (10-20); Calcium,Total 7.5 mg/dL (8.5-10.1); Chloride 105 mmol/L (98-107); Creatinine, Serum 0.83 mg/dL (0.55-1.02); EST Glomerular Filtration Rate 71 mL/min (>60); Est Glom Filt Rate - Afr Amer 86 mL/min (>60); Estimated Creatinine Clearance 47.74 ml/min; Glucose 217 mg/dL (74-106); Potassium 4.1 mmol/L (3.5-5.1); Sodium Level 140 mmol/L (136-145)
[2017-12-17 05:31] LABS: Differential Comment SCANNED
[2017-12-17 05:55] LABS: Bedside Glucose 240 mg/dL (70-110)
[2017-12-17] MEDS: Ipratropium/Albuterol Sulfate 3 ML AMPUL.NEB INHALATION ×4 (06:32→18:48)
--- NOTE | 2017-12-17 06:46 | PCM.CON.CC ---
Problem List (1) History of coronary artery bypass graft x 3 Status: Chronic (2) Arteriosclerotic heart disease (ASHD) Status: Chronic (3) Asthma Status: Chronic Qualifiers: Asthma severity: mild Asthma persistence: intermittent Asthma complication type: with acute exacerbation Qualified Code(s): J45.21 - Mild intermittent asthma with (acute) exacerbation (4) Restrictive lung disease Status: Chronic (5) Paroxysmal atrial fibrillation Status: Chronic (6) Nonrheumatic tricuspid valve regurgitation Status: Chronic (7) Dilated cardiomyopathy Status: Chronic (8) 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 (9) HTN (hypertension) Status: Chronic (10) Diabetes mellitus Status: Chronic (11) HLD (hyperlipidemia) Status: Chronic (12) DM type 2 (diabetes mellitus, type 2) Status: Chronic (13) Hypogammaglobulinemia Status: Chronic (14) Morbid obesity Status: Chronic (15) Migraines Status: Chronic (16) BARTOLO (obstructive sleep apnea) Status: Chronic (17) CAD (coronary artery disease) Status: Chronic Reason for Consult Date of Consultation: 12/17/17 Reason for Consultation: Respiratory failure History of Present Illness: The patient is a 72 year old F, with past medical history listed below, who presented to [facility] on 12/16/2017 secondary to shortness of breath. Mass reported on arrival patient was noted to have a pulse ox of 64% with decreased mental status. Patient was placed on CPAP therapy and then transported to the emergency room for evaluation. On presentation, patient was noted to be 96%. Patient reportedly had been seen in our office 3 days prior and placed on azithromycin and prednisone therapy. Patient did have a cough with production of yellow sputum per that office note. Patient denies any history of previous PE or DVT. Patient was noted to be significantly hypertensive on presentation with a fever of 102.6?F. An ABG was obtained showing acute respiratory failure with hypercapnia and increased AA gradient. Patient was intubated and then transported to the intensive care unit for further monitoring. On arrival to the intensive care unit, patient was hypotensive. Patient responded well to fluid challenge through a right subclavian TLC. Patient did not require any pressor therapy. Patient was placed on propofol and continued on mechanical ventilation. No spontaneous breathing trial was obtained this morning secondary to recent intubation. Patient is reporting pain. Patient does have elevated peak pressures noted on ventilator. Patient is established with Dr. Sevilla in our office. Patient did have a pulmonary function test completed on July 27, 2017 which showed a moderate mixed ventilatory defect with symmetric reduction diffusing capacity. Patient also had a walking oximetry completed in July 2016 that showed no oxygen was required with ambulation. Patient did not report fever on presentation to the office earlier this week. Patient does have a long history of cardiomyopathy and a heart catheterization completed in showed severe hypokinesis of the anterior, anteroapical and inferior apical segments resulting in an LVEF of approximately 40%. Patient's is not at the bedside to provide additional review of systems at this time. Past Medical History Past Medical History (Chronic Problems): Chronic Problems (Last Updated 12/16/17 @ 22:38 by Melony Gonzalez MD) 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 heart disease (ASHD) (Chronic) Asthma (Chronic) Restrictive lung disease (Chronic) Paroxysmal atrial fibrillation (Chronic) Nonrheumatic tricuspid valve regurgitation (Chronic) Dilated cardiomyopathy (Chronic) 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) HTN (hypertension) (Chronic) Diabetes mellitus (Chronic) HLD (hyperlipidemia) (Chronic) DM type 2 (diabetes mellitus, type 2) (Chronic) Hypogammaglobulinemia (Chronic) Morbid obesity (Chronic) Migraines (Chronic) BARTOLO (obstructive sleep apnea) (Chronic) CAD (coronary artery disease) (Chronic) Allergies Beta-Blockers (Beta-Adrenergic Bloc Allergy (Verified 12/16/17 20:27) Shortness of breath doxycycline Allergy (Verified 12/16/17 20:27) Hives Penicillins Allergy (Verified 12/16/17 20:27) Rash red dye Allergy (Verified 12/16/17 20:27) Unknown Sulfa (Sulfonamide Antibiotics) Allergy (Verified 12/16/17 20:27) Rash theophylline Allergy (Verified 12/16/17 20:27) Rash codeine Adverse Reaction (Verified 12/16/17 20:27) Nausea Home Medications: Ambulatory Orders Medication Instructions Recorded Budesonide/Formoterol 160/4.5 2 puff INHALATION BID PRN 11/09/15 [Symbicort 160/4.5 Mcg Inhaler (SP)] Montelukast [Singulair] 10 mg PO DAILY 11/09/15 Acetaminophen [Tylenol Tablet] 650 mg PO Q8H PRN PRN #0 tab 12/04/15 Furosemide [Lasix] 20 mg PO DAILY #30 tab 12/04/15 Acetaminophen/Butalbital/Caffe 1 tab PO Q6H PRN PRN 03/26/17 [Fioricet] Ezetimibe [Zetia] 10 mg PO QHS 03/26/17 Metoprolol Tartrate [Lopressor 6.25 mg PO BID 03/26/17 (beta daniel)] Potassium Chloride [K-Dur] 20 meq PO TID 03/26/17 Aspirin E.C. [Ecotrin] 81 mg PO DAILY@0800 #60 tab 03/28/17 Carvedilol [Coreg (Beta Daniel)] 6.25 mg PO BID #60 tab 03/28/17 apixaban 5 mg tablet 5 mg PO BID #180 tab 08/19/17 amiodarone 200 mg tablet 100 mg PO QDAY tab 08/22/17 albuterol sulfate HFA 90 2 puff INHALATION Q4H PRN #1 device 09/08/17 mcg/actuation aerosol inhaler benzonatate 100 mg capsule 100 mg PO Q6H 10/19/17 fluticasone 50 mcg/actuation nasal 50 mcg INTRANASAL BID PRN 10/19/17 spray,suspension guaifenesin ER 600 mg tablet, 600 mg PO Q12H PRN 10/19/17 extended release 12 hr cyclobenzaprine 5 mg tablet 5 mg PO TID PRN #10 tab 10/21/17 levalbuterol 0.63 mg/3 mL solution 0.63 mg INHALATION Q4H PRN #120 10/28/17 for nebulization vial levothyroxine 50 mcg tablet 50 mcg PO QDAY #90 tab 12/02/17 prednisone 20 mg tablet 60 mg PO QDAY #15 tab 12/13/17 azithromycin 250 mg tablet 250 mg PO QDAY #6 tab 12/15/17 benzonatate 100 mg capsule 100 mg PO TID PRN #30 cap 12/15/17 Surgical History: cholecystectomy, coronary bypass surgery, hysterectomy Psychiatric History: No pertinent psych hx [employer] 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 Serial chest x-rays do show significant RVH with no obvious infiltrate. Patient may have a atypical infection versus congestion pattern. - Physical Exam General: - - RASS -1. Fair vent synchrony noted. Morbidly obese. HEENT: Atraumatic, PERRLA, EOMI, Normocephalic, - - Slight scleral injection without icterus. Some matting noted of the left eye. Oral: Moist Mucosa, No Gingival or Mucosal Lesions/ Ulcerations Neck: Supple, No JVD, No Nodes, Trachea Midline Lungs: No rhonchi, No rales, Diminished, Wheezes, - - Symmetric expansion. No dullness to percussion. Cardiovascular: Regular rate, Regular Rhythm, Normal S1, Normal S2, No murmurs, No rub noted, No Gallop Abdomen: Bowel Sounds Present, Soft, Non Tender, Non-Distended, Obese Extremities: No clubbing, No cyanosis, No edema, Capillary Refill Less than 3 Seconds Skin: No rashes, No breakdown Musculoskeletal: No Tenderness to Palpation of Joints or Extremities Lymphatic: No Cervical, Supraclavicular, or Inguinal Adenopathy Neurological: Cranial nerves II-XII grossly intact, Neuro grossly intact, Motor Exam 5/5 strength throughout, Sensory exam intact to light touch and pain Psych/Mental Status: Flat Affect, Restless - With waking Vital Signs Temp Pulse Resp BP Pulse Ox 38.0 C H 71 16 136/70 H 97 12/17/17 06:00 12/17/17 06:32 12/17/17 06:32 12/17/17 06:00 12/17/17 06:32 Oxygen Delivery Method Mechanical Ventilator Weight: 99.7 kg Body Mass Index (BMI) 39.6 Intake and Output for Last 24 Hours 12/15/17 12/16/17 12/17/17 23:59 23:59 23:59 Intake Total 2098.4 / 2098.4 Output Total 250 / 250 Balance 1848.4 / 1848.4 Laboratory Tests Past 24 Hrs 12/16/17 12/16/17 12/17/17 23:30 23:55 01:30 WBC RBC Hgb Hct MCV MCH MCHC RDW RDW Differential Plt Count MPV Immature Gran % (Auto) Neut % (Auto) Lymph % (Auto) [place] % (Auto) Eos % (Auto) Baso % (Auto) Absolute Neuts (auto) Absolute Lymphs (auto) Total Counted Differential Comment Specimen Type ART Sample Site R Radial pH 7.41 Bicarbonate Actual 24.1 POC Total CO2 25 Base Excess -1 O2 Saturation 98 O2 % 40 ABG pCO2 37.9 ABG pO2 103 H Anibal Test NA Respiration Rate 16 O2 Delivery Device Vent Minute Volume 7.00 Vent Mode A-C Tidal Volume 450 POC PEEP 5 Blood Gas Notified Whom [facility] Blood Gas Notified Time 2349 Sodium Potassium Chloride Carbon Dioxide Anion Gap BUN Creatinine Estim Creat Clear Calc Est GFR (MDRD) Af Amer Est GFR (MDRD) Non-Af BUN/Creatinine Ratio Glucose Lactic Acid 1.9 Calcium MRSA (PCR) Negative 12/17/17 12/17/17 04:15 04:15 WBC 8.4 RBC 4.50 Hgb 13.1 Hct 39.4 MCV 87.6 MCH 29.1 MCHC 33.2 RDW 13.7 RDW Differential 44.2 H Plt Count 212 MPV 10.3 Immature Gran % (Auto) 0.200 Neut % (Auto) 87.4 H Lymph % (Auto) 5.2 L [place] % (Auto) 7.0 Eos % (Auto) 0.0 Baso % (Auto) 0.2 Absolute Neuts (auto) 7.4 Absolute Lymphs (auto) 0.44 L Total Counted Not Reportable Differential Comment SCANNED Specimen Type Sample Site pH Bicarbonate Actual POC Total CO2 Base Excess O2 Saturation O2 % ABG pCO2 ABG pO2 Anibal Test Respiration Rate O2 Delivery Device Minute Volume Vent Mode Tidal Volume POC PEEP Blood Gas Notified Whom Blood Gas Notified Time Sodium 140 Potassium 4.1 Chloride 105 Carbon Dioxide 25.0 Anion Gap 10 BUN 19 H Creatinine 0.83 Estim Creat Clear Calc 47.74 Est GFR (MDRD) Af Amer 86 Est GFR (MDRD) Non-Af 71 BUN/Creatinine Ratio 22.8 H Glucose 217 H Lactic Acid Calcium 7.5 L MRSA (PCR) POC Glucose 12/17/17 12/17/17 05:50 00:33 POC Glucose 240 H 198 H Clinical Impression(s) from Imaging Studies Chest X-Ray 12/16/17 20:32 IMPRESSION: Cardiomegaly. No acute infiltrate. Electronically Signed: Eric Cole DO at 21:42 EDT , Service support , Chest X-Ray 12/16/17 20:42 IMPRESSION: The endotracheal tube terminates about 5.3 cm above the millie. A gastric tube extends into the upper abdomen. There is bibasilar atelectasis. Electronically Signed: Angie Jamison MD at 22:03 EDT Tel Direct: [phone], Service support , KUB X-Ray 12/16/17 20:55 IMPRESSION: The tip of the gastric tube is in the expected location of the antrum of the stomach. Electronically Signed: Angie Jamison MD at 22:06 EDT Tel Direct: [phone], Service support , Chest X-Ray 12/16/17 21:50 IMPRESSION: Right subclavian central line in place with the tip in the lower SVC. No pneumothorax. Endotracheal tube and NG tube remain in stable position. No acute infiltrate. Electronically Signed: Eric Cole DO at 22:51 EDT , Service support , Assessment/Plan RECOMMENDATIONS: 1. Initiate fentanyl drip 2. Continue empiric antibiotics until cultures completed 3. Continue IV steroids, bronchodilators 4. Spontaneous awakening and breathing trials per protocol 5. Discontinue Lopressor, continue carvedilol 6. Initiate tube feeds, discontinue IV fluids IMPRESSIONS: 1. Acute combined respiratory failure secondary to asthma exacerbation Patient does have a history of obstructive lung disease that is likely complicated by concomitant congestive heart failure. Patient does have a atypical type of infiltrate versus congestion noted on chest x-ray but no focal infiltrate. Patient does have significant enlargement of the RV on chest x-ray. Will initiate patient on fentanyl drip given reported pain. Spontaneous breathing and awakening trials per protocol. Oxygenation has improved indicating probable atelectasis as an etiology. Would continue with empiric antibiotics for now until culture data is available. Viral panel is currently pending. If viral panel was positive, discontinuation of antibiotics would be appropriate. 2. Severe sepsis Unclear etiology at this time. Patient is spiking significant fevers and did report a productive cough. Atypical pneumonia may be an etiology. Levaquin is on appropriate initial therapy. [place] cultures and viral panel are currently pending. 3. Paroxysmal A. fib/CAD status post CABG/chronic systolic CHF Patient is in sinus rhythm and rate controlled at this time. Patient did have some decreased blood pressures overnight, but has responded to fluid challenge. Patient does have a dilated RV noted on chest x-ray. Watch I and O's closely. Will transition to tube feeds for better nutritional support and discontinue maintenance fluids. We will continue with carvedilol, but discontinue Lopressor. 4. Diabetes mellitus type 2 Patient requires steroid therapy at this time. On initiation of tube feeds, patient will likely require insulin coverage. Will likely initiate basal insulin once demands are known. 5. Hypothyroidism/hypertension/history of obstructive sleep apnea/migraine/advanced age Complicates care, management, recovery and prognosis. Likely okay to continue with baseline medications. Patient will likely require CPAP versus BiPAP support following extubation with sleep. TIME: 40 minutes of critical care time spent addressing patient's acute combined respiratory failure, severe sepsis, diabetes, review of all data and collaboration with care team (5:45 AM to 7 AM) Code Visit 9xxxx: [id number] Critical care first hour
--- NOTE | 2017-12-17 07:06 | CON.PCM_ITS ---
Problem List (1) History of coronary artery bypass graft x 3 Status: Chronic (2) Arteriosclerotic heart disease (ASHD) Status: Chronic (3) Asthma Status: Chronic Qualifiers: Asthma severity: mild Asthma persistence: intermittent Asthma complication type: with acute exacerbation Qualified Code(s): J45.21 - Mild intermittent asthma with (acute) exacerbation (4) Restrictive lung disease Status: Chronic (5) Paroxysmal atrial fibrillation Status: Chronic (6) Nonrheumatic tricuspid valve regurgitation Status: Chronic (7) Dilated cardiomyopathy Status: Chronic (8) 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 (9) HTN (hypertension) Status: Chronic (10) Diabetes mellitus Status: Chronic (11) HLD (hyperlipidemia) Status: Chronic (12) DM type 2 (diabetes mellitus, type 2) Status: Chronic (13) Hypogammaglobulinemia Status: Chronic (14) Morbid obesity Status: Chronic (15) Migraines Status: Chronic (16) BARTOLO (obstructive sleep apnea) Status: Chronic (17) CAD (coronary artery disease) Status: Chronic Reason for Consult Date of Consultation: 12/17/17 Reason for Consultation: Respiratory failure History of Present Illness: The patient is a 72 year old F, with past medical history listed below, who presented to [facility] on 12/16/2017 secondary to shortness of breath. Mass reported on arrival patient was noted to have a pulse ox of 64% with decreased mental status. Patient was placed on CPAP therapy and then transported to the emergency room for evaluation. On presentation, patient was noted to be 96%. Patient reportedly had been seen in our office 3 days prior and placed on azithromycin and prednisone therapy. Patient did have a cough with production of yellow sputum per that office note. Patient denies any history of previous PE or DVT. Patient was noted to be significantly hypertensive on presentation with a fever of 102.6?F. An ABG was obtained showing acute respiratory failure with hypercapnia and increased AA gradient. Patient was intubated and then transported to the intensive care unit for further monitoring. On arrival to the intensive care unit, patient was hypotensive. Patient responded well to fluid challenge through a right subclavian TLC. Patient did not require any pressor therapy. Patient was placed on propofol and continued on mechanical ventilation. No spontaneous breathing trial was obtained this morning secondary to recent intubation. Patient is reporting pain. Patient does have elevated peak pressures noted on ventilator. Patient is established with Dr. Sevilla in our office. Patient did have a pulmonary function test completed on July 27, 2017 which showed a moderate mixed ventilatory defect with symmetric reduction diffusing capacity. Patient also had a walking oximetry completed in July 2016 that showed no oxygen was required with ambulation. Patient did not report fever on presentation to the office earlier this week. Patient does have a long history of cardiomyopathy and a heart catheterization completed in showed severe hypokinesis of the anterior, anteroapical and inferior apical segments resulting in an LVEF of approximately 40%. Patient's is not at the bedside to provide additional review of systems at this time. Past Medical History Past Medical History (Chronic Problems): Chronic Problems (Last Updated 12/16/17 @ 22:38 by Melony Gonzalez MD) 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 heart disease (ASHD) (Chronic) Asthma (Chronic) Restrictive lung disease (Chronic) Paroxysmal atrial fibrillation (Chronic) Nonrheumatic tricuspid valve regurgitation (Chronic) Dilated cardiomyopathy (Chronic) 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) HTN (hypertension) (Chronic) Diabetes mellitus (Chronic) HLD (hyperlipidemia) (Chronic) DM type 2 (diabetes mellitus, type 2) (Chronic) Hypogammaglobulinemia (Chronic) Morbid obesity (Chronic) Migraines (Chronic) BARTOLO (obstructive sleep apnea) (Chronic) CAD (coronary artery disease) (Chronic) Allergies Beta-Blockers (Beta-Adrenergic Bloc Allergy (Verified 12/16/17 20:27) Shortness of breath doxycycline Allergy (Verified 12/16/17 20:27) Hives Penicillins Allergy (Verified 12/16/17 20:27) Rash red dye Allergy (Verified 12/16/17 20:27) Unknown Sulfa (Sulfonamide Antibiotics) Allergy (Verified 12/16/17 20:27) Rash theophylline Allergy (Verified 12/16/17 20:27) Rash codeine Adverse Reaction (Verified 12/16/17 20:27) Nausea Home Medications: Ambulatory Orders Medication Instructions Recorded Budesonide/Formoterol 160/4.5 2 puff INHALATION BID PRN 11/09/15 [Symbicort 160/4.5 Mcg Inhaler (SP)] Montelukast [Singulair] 10 mg PO DAILY 11/09/15 Acetaminophen [Tylenol Tablet] 650 mg PO Q8H PRN PRN #0 tab 12/04/15 Furosemide [Lasix] 20 mg PO DAILY #30 tab 12/04/15 Acetaminophen/Butalbital/Caffe 1 tab PO Q6H PRN PRN 03/26/17 [Fioricet] Ezetimibe [Zetia] 10 mg PO QHS 03/26/17 Metoprolol Tartrate [Lopressor 6.25 mg PO BID 03/26/17 (beta daniel)] Potassium Chloride [K-Dur] 20 meq PO TID 03/26/17 Aspirin E.C. [Ecotrin] 81 mg PO DAILY@0800 #60 tab 03/28/17 Carvedilol [Coreg (Beta Daniel)] 6.25 mg PO BID #60 tab 03/28/17 apixaban 5 mg tablet 5 mg PO BID #180 tab 08/19/17 amiodarone 200 mg tablet 100 mg PO QDAY tab 08/22/17 albuterol sulfate HFA 90 2 puff INHALATION Q4H PRN #1 device 09/08/17 mcg/actuation aerosol inhaler benzonatate 100 mg capsule 100 mg PO Q6H 10/19/17 fluticasone 50 mcg/actuation nasal 50 mcg INTRANASAL BID PRN 10/19/17 spray,suspension guaifenesin ER 600 mg tablet, 600 mg PO Q12H PRN 10/19/17 extended release 12 hr cyclobenzaprine 5 mg tablet 5 mg PO TID PRN #10 tab 10/21/17 levalbuterol 0.63 mg/3 mL solution 0.63 mg INHALATION Q4H PRN #120 10/28/17 for nebulization vial levothyroxine 50 mcg tablet 50 mcg PO QDAY #90 tab 12/02/17 prednisone 20 mg tablet 60 mg PO QDAY #15 tab 12/13/17 azithromycin 250 mg tablet 250 mg PO QDAY #6 tab 12/15/17 benzonatate 100 mg capsule 100 mg PO TID PRN #30 cap 12/15/17 Surgical History: cholecystectomy, coronary bypass surgery, hysterectomy Psychiatric History: No pertinent psych hx SCOW CAPTAIN History: No pertinent SCOW CAPTAIN history Lives: Spouse/ Significant Other Smoking Status: Never smoker Alcohol: None Drugs: None - *Family History Paternal History Items: Heart Disease Maternal History Items: Cancer Review of Systems Unable to obtain accurate/complete ROS d/t: Intubated and sedated Objective: All imaging was reviewed. Serial chest x-rays do show significant RVH with no obvious infiltrate. Patient may have a atypical infection versus congestion pattern. - Physical Exam General: - - RASS -1. Fair vent synchrony noted. Morbidly obese. HEENT: Atraumatic, PERRLA, EOMI, Normocephalic, - - Slight scleral injection without icterus. Some matting noted of the left eye. Oral: Moist Mucosa, No Gingival or Mucosal Lesions/ Ulcerations Neck: Supple, No JVD, No Nodes, Trachea Midline Lungs: No rhonchi, No rales, Diminished, Wheezes, - - Symmetric expansion. No dullness to percussion. Cardiovascular: Regular rate, Regular Rhythm, Normal S1, Normal S2, No murmurs, No rub noted, No Gallop Abdomen: Bowel Sounds Present, Soft, Non Tender, Non-Distended, Obese Extremities: No clubbing, No cyanosis, No edema, Capillary Refill Less than 3 Seconds Skin: No rashes, No breakdown Musculoskeletal: No Tenderness to Palpation of Joints or Extremities Lymphatic: No Cervical, Supraclavicular, or Inguinal Adenopathy Neurological: Cranial nerves II-XII grossly intact, Neuro grossly intact, Motor Exam 5/5 strength throughout, Sensory exam intact to light touch and pain Psych/Mental Status: Flat Affect, Restless - With waking Vital Signs Temp Pulse Resp BP Pulse Ox 38.0 C H 71 16 136/70 H 97 12/17/17 06:00 12/17/17 06:32 12/17/17 06:32 12/17/17 06:00 12/17/17 06:32 Oxygen Delivery Method Mechanical Ventilator Weight: 99.7 kg Body Mass Index (BMI) 39.6 Intake and Output for Last 24 Hours 12/15/17 12/16/17 12/17/17 23:59 23:59 23:59 Intake Total 2098.4 / 2098.4 Output Total 250 / 250 Balance 1848.4 / 1848.4 Laboratory Tests Past 24 Hrs 12/16/17 12/16/17 12/17/17 23:30 23:55 01:30 WBC RBC Hgb Hct MCV MCH MCHC RDW RDW Differential Plt Count MPV Immature Gran % (Auto) Neut % (Auto) Lymph % (Auto) [place] % (Auto) Eos % (Auto) Baso % (Auto) Absolute Neuts (auto) Absolute Lymphs (auto) Total Counted Differential Comment Specimen Type ART Sample Site R Radial pH 7.41 Bicarbonate Actual 24.1 POC Total CO2 25 Base Excess -1 O2 Saturation 98 O2 % 40 ABG pCO2 37.9 ABG pO2 103 H Anibal Test NA Respiration Rate 16 O2 Delivery Device Vent Minute Volume 7.00 Vent Mode A-C Tidal Volume 450 POC PEEP 5 Blood Gas Notified Whom [facility] Blood Gas Notified Time 2349 Sodium Potassium Chloride Carbon Dioxide Anion Gap BUN Creatinine Estim Creat Clear Calc Est GFR (MDRD) Af Amer Est GFR (MDRD) Non-Af BUN/Creatinine Ratio Glucose Lactic Acid 1.9 Calcium MRSA (PCR) Negative 12/17/17 12/17/17 04:15 04:15 WBC 8.4 RBC 4.50 Hgb 13.1 Hct 39.4 MCV 87.6 MCH 29.1 MCHC 33.2 RDW 13.7 RDW Differential 44.2 H Plt Count 212 MPV 10.3 Immature Gran % (Auto) 0.200 Neut % (Auto) 87.4 H Lymph % (Auto) 5.2 L [place] % (Auto) 7.0 Eos % (Auto) 0.0 Baso % (Auto) 0.2 Absolute Neuts (auto) 7.4 Absolute Lymphs (auto) 0.44 L Total Counted Not Reportable Differential Comment SCANNED Specimen Type Sample Site pH Bicarbonate Actual POC Total CO2 Base Excess O2 Saturation O2 % ABG pCO2 ABG pO2 Anibal Test Respiration Rate O2 Delivery Device Minute Volume Vent Mode Tidal Volume POC PEEP Blood Gas Notified Whom Blood Gas Notified Time Sodium 140 Potassium 4.1 Chloride 105 Carbon Dioxide 25.0 Anion Gap 10 BUN 19 H Creatinine 0.83 Estim Creat Clear Calc 47.74 Est GFR (MDRD) Af Amer 86 Est GFR (MDRD) Non-Af 71 BUN/Creatinine Ratio 22.8 H Glucose 217 H Lactic Acid Calcium 7.5 L MRSA (PCR) POC Glucose 12/17/17 12/17/17 05:50 00:33 POC Glucose 240 H 198 H Clinical Impression(s) from Imaging Studies Chest X-Ray 12/16/17 20:32 IMPRESSION: Cardiomegaly. No acute infiltrate. Electronically Signed: Eric Cole DO at 21:42 EDT , Service support , Chest X-Ray 12/16/17 20:42 IMPRESSION: The endotracheal tube terminates about 5.3 cm above the millie. A gastric tube extends into the upper abdomen. There is bibasilar atelectasis. Electronically Signed: Angie Jamison MD at 22:03 EDT Tel Direct: [phone], Service support , KUB X-Ray 12/16/17 20:55 IMPRESSION: The tip of the gastric tube is in the expected location of the antrum of the stomach. Electronically Signed: Angie Jamison MD at 22:06 EDT Tel Direct: [phone], Service support , Chest X-Ray 12/16/17 21:50 IMPRESSION: Right subclavian central line in place with the tip in the lower SVC. No pneumothorax. Endotracheal tube and NG tube remain in stable position. No acute infiltrate. Electronically Signed: Eric Cole DO at 22:51 EDT , Service support , Assessment/Plan RECOMMENDATIONS: 1. Initiate fentanyl drip 2. Continue empiric antibiotics until cultures completed 3. Continue IV steroids, bronchodilators 4. Spontaneous awakening and breathing trials per protocol 5. Discontinue Lopressor, continue carvedilol 6. Initiate tube feeds, discontinue IV fluids IMPRESSIONS: 1. Acute combined respiratory failure secondary to asthma exacerbation Patient does have a history of obstructive lung disease that is likely complicated by concomitant congestive heart failure. Patient does have a atypical type of infiltrate versus congestion noted on chest x-ray but no focal infiltrate. Patient does have significant enlargement of the RV on chest x- ray. Will initiate patient on fentanyl drip given reported pain. Spontaneous breathing and awakening trials per protocol. Oxygenation has improved indicating probable atelectasis as an etiology. Would continue with empiric antibiotics for now until culture data is available. Viral panel is currently pending. If viral panel was positive, discontinuation of antibiotics would be appropriate. 2. Severe sepsis Unclear etiology at this time. Patient is spiking significant fevers and did report a productive cough. Atypical pneumonia may be an etiology. Levaquin is on appropriate initial therapy. Villa cultures and viral panel are currently pending. 3. Paroxysmal A. fib/CAD status post CABG/chronic systolic CHF Patient is in sinus rhythm and rate controlled at this time. Patient did have some decreased blood pressures overnight, but has responded to fluid challenge. Patient does have a dilated RV noted on chest x-ray. Watch I and O' s closely. Will transition to tube feeds for better nutritional support and discontinue maintenance fluids. We will continue with carvedilol, but discontinue Lopressor. 4. Diabetes mellitus type 2 Patient requires steroid therapy at this time. On initiation of tube feeds, patient will likely require insulin coverage. Will likely initiate basal insulin once demands are known. 5. Hypothyroidism/hypertension/history of obstructive sleep apnea/migraine/ advanced age Complicates care, management, recovery and prognosis. Likely okay to continue with baseline medications. Patient will likely require CPAP versus BiPAP support following extubation with sleep. TIME: 40 minutes of critical care time spent addressing patient's acute combined respiratory failure, severe sepsis, diabetes, review of all data and collaboration with care team (5:45 AM to 7 AM) Code Visit 9xxxx: [id number] Critical care first hour
--- NOTE | 2017-12-17 07:44 | PCM.PN.HOSP ---
Subjective: Patient was seen and examined. Admitted last night with shortness of breath, found to be profoundly hypoxic, intubated and managed on mechanical ventilation in the ED. Patient remains on mechanical ventilation. Currently on fentanyl and propofol which has been shut off since morning, patient is responsive and shakes her head to answers. Denies any new complaints. No acute events according to the nurses. Remains febrile, T max 102.6F Objective: Physical Exam General: - - Intubated, sedated. HEENT: Atraumatic, PERRLA, EOMI Oral: Moist Mucosa, No Gingival or Mucosal Lesions/ Ulcerations Neck: Supple, No JVD, Negative Carotid Bruits, Trachea Midline, Thyroid Normal Size and Texture Lungs: Clear to auscultation, No rhonchi, No rales, Diminished, Wheezes Cardiovascular: Regular rate, Regular Rhythm, Normal S1, Normal S2, PMI Normal, Tachycardic Abdomen: Bowel Sounds Present, Soft, Non Tender, Non-Distended, No Hepato-splenomegaly, Obese Extremities: No clubbing, No cyanosis, No edema Skin: No rashes, No breakdown Lymphatic: No Cervical, Supraclavicular, or Inguinal Adenopathy Neurological: - - Unable to examine, patient is intubated and sedated. Psych/Mental Status: - - Unable to assess, patient is sedated. Vitals/I&O's: Vital Signs Temp Pulse Resp BP Pulse Ox 100.3 F H 68 16 121/61 H 95 12/17/17 07:00 12/17/17 07:00 12/17/17 07:00 12/17/17 07:00 12/17/17 07:00 Oxygen Delivery Method Mechanical Ventilator Weight: 99.7 kg Body Mass Index (BMI) 39.6 Intake and Output for Last 24 Hours 12/15/17 12/16/17 12/17/17 23:59 23:59 23:59 Intake Total 2098.4 / 2098.4 Output Total 250 / 250 Balance 1848.4 / 1848.4 Laboratory Results 12/16/17 23:30: MRSA (PCR) Negative 12/16/17 23:55: Specimen Type ART, Sample Site R Radial, pH 7.41, Bicarbonate Actual 24.1, POC Total CO2 25, Base Excess -1, O2 Saturation 98, O2 % 40, ABG pCO2 37.9, ABG pO2 103 H, Anibal Test NA, Respiration Rate 16, O2 Delivery Device Vent, Minute Volume 7.00, Vent Mode A-C, Tidal Volume 450, POC PEEP 5, Blood Gas Notified Whom [facility] , Blood Gas Notified Time 61312/17/17 00:33: POC Glucose 198 H 12/17/17 01:30: Lactic Acid 1.9 12/17/17 04:15: WBC 8.4, RBC 4.50, Hgb 13.1, Hct 39.4, MCV 87.6, MCH 29.1, MCHC 33.2, RDW 13.7, RDW Differential 44.2 H, Plt Count 212, MPV 10.3, Immature Gran % (Auto) 0.200, Neut % (Auto) 87.4 H, Lymph % (Auto) 5.2 L, [place] % (Auto) 7.0, Eos % (Auto) 0.0, Baso % (Auto) 0.2, Absolute Neuts (auto) 7.4, Absolute Lymphs (auto) 0.44 L, Total Counted Not Reportable, Differential Comment SCANNED 12/17/17 04:15: Sodium 140, Potassium 4.1, Chloride 105, Carbon Dioxide 25.0, Anion Gap 10, BUN 19 H, Creatinine 0.83, Estim Creat Clear Calc 47.74, Est GFR (MDRD) Af Amer 86, Est GFR (MDRD) Non-Af 71, BUN/Creatinine Ratio 22.8 H, Glucose 217 H, Calcium 7.5 L 12/17/17 05:50: POC Glucose 240 H Current Medications Acetaminophen (Tylenol) 650 mg RECTAL Q6H PRN PRN PRN Reason: Fever more than 101 Albuterol/Ipratropium (Duoneb) 3 ml INHALATION Q4HWA.RT TRACIE Last Admin: 12/17/17 06:32 Dose: 3 ml Carvedilol (Coreg) 6.25 mg GT BID TRACIE Chlorhexidine Gluconate () 15 ml PO BID TRACIE Chlorhexidine Gluconate () 1 each TOPICAL DAILY [facility] Dextrose (D50w Syringe) 0 gm IV X1 PRN; Protocol PRN Reason: Hypoglycemia Enoxaparin Sodium (Lovenox) 30 mg SC DAILY@1000 TRACIE Glucagon () 1 mg IM .X1 PRN PRN Reason: Hypoglycemia Propofol (Diprivan) 1,000 mg in 100 mls @ 3.084 mls/hr CONT INF .Q12H TRACIE; 5 MCG/KG/MIN PRN Reason: Protocol Last Admin: 12/16/17 22:52 Dose: 3.084 mls/hr Sodium Chloride () 1,000 mls @ 100 mls/hr IV .Q10H [facility] Last Admin: 12/17/17 04:22 Dose: 100 mls/hr Amiodarone HCl 100 mg/ (Dextrose) 102 mls @ 600 mls/hr IV BOLUS DAILY [facility] Levofloxacin (Levaquin Iv) 750 mg in 150 mls @ 100 mls/hr IV Q48 TRACIE Sodium Chloride () 250 mls @ 15 mls/hr IV .[id number] PRN PRN Reason: SALINE FLUSH Famotidine (Pepcid 20mg) 20 mg in 50 mls @ 150 mls/hr IV Q12 [facility] Last Admin: 12/16/17 23:43 Dose: 150 mls/hr Fentanyl () 100 mls @ 2.5 mls/hr IV .Q40H [facility] Last Admin: 12/17/17 06:17 Dose: 2.5 mls/hr Insulin Aspart (Novolog Flexpen (Bkc)) 0 units SC Q6 TRACIE PRN Reason: Protocol Last Admin: 12/17/17 05:55 Dose: 3 u Methylprednisolone (Solu-Medrol) 40 mg IV Q8 [facility] Last Admin: 12/17/17 06:13 Dose: 40 mg Ondansetron HCl (Zofran) 4 mg IV Q8H PRN PRN PRN Reason: Nausea Sodium Chloride () 5 - 30 ml IV UD PRN PRN Reason: SALINE FLUSH Medical Necessity - Tobacco Use Smoking Status: Never smoker Assessment/Plan 72 years old female patient admitted through the ED on 12/16/17 with shortness of breath and was profoundly hypoxic with pulse oximeter of 64% on room air. She was sleepy and lethargic which worsened shortly after arrival, intubated and started on mechanical ventilation for acute hypoxic respiratory failure. 1. Acute hypoxic respiratory failure, status post intubation, remains on mechanical ventilation, in ICU, security auditor consulted, continue ventilator care per protocol, continue with other sedating medications per security auditor and plan for extubation per security auditor. 2. Acute asthma exacerbation, possible CAP, history of asthma, restrictive lung diosease, BARTOLO, continue as in #1 3. severe sepsis likely secondary to suspected community-acquired pneumonia, lactic acid was 2.6, repeat is 1.9, patient remains febrile, resolved leukocytosis, will continue on IV Levaquin, follow blood cultures. Respiratory panel is pending. 4. suspected community acquired pneumonia, status post intubation, started on empiric IV Levaquin, will continue to follow leukocytosis and blood cultures, 5. Paroxysmal atrial fibrillation, rate controlled, on IV amiodarone, IV metoprolol 5 mg every 6 hours with holding parameters. Eliquis on hold 6. CAD status post CABG, ischemic cardiomyopathy, EF 45% on last 2d-ECHO, stable, no ACS 7. Type 2 diabetes mellitus, uncontrolled secondary to IV steroids, will continue with Accu-Cheks every 6 hourly and insulin sliding scale, check HbA1c 8. Hypertension, controlled, on IV metoprolol for now, will continue to monitor vitals closely 9. Hypothyroidism, on levothyroxine. 10.DVT prophylaxis - Lovenox SC. 11. GI PPx- Famotidine IV BID Code Visit Inpatient E&M: 81621 Subs Hosp L3
[2017-12-17] MEDS: Chlorhexidine 15 ML PO ×2 (09:28→21:24)
[2017-12-17] MEDS: CHLORHEXIDINE GLUC 2% CLOTH 1 EACH TOWELETTE TOPICAL (09:28)
[2017-12-17] MEDS: Carvedilol 6.25 MG Tablet GT ×2 (09:29→21:25)
[2017-12-17] MEDS: Amiodarone 200 MG Tablet 100 MG GT (09:29)
[2017-12-17] MEDS: Enoxaparin 30 MG/0.3 ML Syringe SC (09:29)
--- NOTE | 2017-12-17 09:30 | NURSING ---
Morning medications given by SN Steve administered under direct supervision of this RN.
[2017-12-17] MEDS: Propofol 10MG/Ml 1,000 MG/100 ML Bottle 3.084 MG CONT INF ×2 (09:31→20:02)
--- NOTE | 2017-12-17 09:35 | CASEMGMT ---
SW participated in ICU rounds, spoke w/ after rounds, offered support. states pt has been in the hospital before for asthma, but was intubated only one other time after heart surgery two years ago. He states they moved here from the [facility] 3 years ago and pt has been doing better. 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 SW explained that CM/SW will be following for any discharge needs. TAYLOR Dia, SCIENTIFIC RECRUITER
[2017-12-17] MEDS: Vital AF 1.2 Cal Liquid 1,000 ML 60 ML GT (12:01)
[2017-12-17 12:26] LABS: Bedside Glucose 222 mg/dL (70-110)
[2017-12-17] MEDS: 0.9% NaCl Peripheral Flush Adult/Peds IV ×2 (15:39→21:26)
--- NOTE | 2017-12-17 16:04 | NURSING ---
Teaching of pt's chronic medical conditions deferred until pt no longer sedated on vent and able to effectively participate in instruction.
[2017-12-17 17:46] LABS: Bedside Glucose 216 mg/dL (70-110)
[2017-12-18] VITALS (43 sets, daily range): BP systolic 74–158; BP diastolic 49–100; PULSE 51–98; RESP 14–35; TEMP 37.4–38.1; O2SAT 93–100
[2017-12-18 01:26] LABS: Bedside Glucose 262 mg/dL (70-110)
--- NOTE | 2017-12-18 01:40 | NURSING ---
Teaching of chronic clinical conditions postponed until pt no longer on mech ventilation and able to effectively participate in instruction.
[2017-12-18] MEDS: 0.9% NaCl Peripheral Flush Adult/Peds IV ×2 (05:21→09:44)
[2017-12-18 05:36] LABS: Bedside Glucose 264 mg/dL (70-110)
[2017-12-18 05:51] LABS: Absolute Lymphocyte Count 0.55 X10^3/ul (0.83-4.51); Basophil# 0.02 X10^3/uL; Basophil% 0.2 % (0-1); Differential Indicated SCAN CRITERIA MET; Hematocrit 42.1 % (37-47); Hemoglobin 14.2 g/dl (12.0-15.0); Lymphocyte # 0.55 X10^3/ul (4.0); Lymphocyte % 4.6 % (19-41); Mean Corp Hgb Conc 33.7 g/gl (32-36); Mean Corpuscular Hgb 29.3 pg (27.0-32.0); Mean Corpuscular Volume 86.8 fL (81-99); Mean Platelet Vol. 10.7 fl (6.2-12.0); Monocyte# 1.28 X10^3/uL; Monocyte% 10.8 % (0-10); Neutrophil # 9.99 X10^3/uL (2.7-7.7); POSITIVE COUNT NO; POSITIVE DIFFERENTIAL YES; POSITIVE MORPHOLOGY NO; Platelet Count 254 K/mm3 (150-450); RBC Distribution Width CV 13.5 % (11.6-14.6); Red Blood Count 4.85 M/mm3 (4.2-5.4); White Blood Count 11.9 K/mm3 (4.4-11.0)
[2017-12-18 06:01] LABS: Anion Gap 9 (5-15); BUN 20 mg/dL (7-18); BUN/Creat Ratio 26.6 RATIO (10-20); Calcium,Total 8.1 mg/dL (8.5-10.1); Chloride 105 mmol/L (98-107); Creatinine, Serum 0.75 mg/dL (0.55-1.02); EST Glomerular Filtration Rate 80 mL/min (>60); Est Glom Filt Rate - Afr Amer 97 mL/min (>60); Estimated Creatinine Clearance 39.63 ml/min; Glucose 268 mg/dL (74-106); Magnesium 2.3 mg/dL (1.6-2.6); Phosphorus 2.2 mg/dL (2.5-4.9); Potassium 4.1 mmol/L (3.5-5.1); Sodium Level 139 mmol/L (136-145)
[2017-12-18] MEDS: Ipratropium/Albuterol Sulfate 3 ML AMPUL.NEB INHALATION ×4 (06:34→19:05)
[2017-12-18] MEDS: Propofol 10MG/Ml 1,000 MG/100 ML Bottle 3.084 MG CONT INF ×2 (06:50→14:05)
--- NOTE | 2017-12-18 07:09 | PCM.PN.HOSP ---
Subjective: Patient was seen and examined, remains intubated in the ICU, failed spontaneous awakening trial with previous of tachypneic and anxiety. Respiratory panel was positive for RSV. Vitals have however been stable. Objective: Physical Exam General: - - Intubated, sedated. HEENT: Atraumatic, PERRLA, EOMI Oral: Moist Mucosa, No Gingival or Mucosal Lesions/ Ulcerations Neck: Supple, No JVD, Negative Carotid Bruits, Trachea Midline, Thyroid Normal Size and Texture Lungs: Clear to auscultation, No rhonchi, No rales, Diminished, Wheezes Cardiovascular: Regular rate, Regular Rhythm, Normal S1, Normal S2, PMI Normal, Tachycardic Abdomen: Bowel Sounds Present, Soft, Non Tender, Non-Distended, No Hepato-splenomegaly, Obese Extremities: No clubbing, No cyanosis, No edema Skin: No rashes, No breakdown Lymphatic: No Cervical, Supraclavicular, or Inguinal Adenopathy Neurological: - - Unable to examine, patient is intubated and sedated. Psych/Mental Status: - - Unable to assess, patient is sedated. Vitals/I&O's: Vital Signs Temp Pulse Resp BP Pulse Ox 99.7 F H 87 35 H 155/86 H 97 12/18/17 06:00 12/18/17 06:35 12/18/17 06:35 12/18/17 06:00 12/18/17 06:35 Oxygen Delivery Method Mechanical Ventilator Weight: 101.6 kg Body Mass Index (BMI) 39.6 Intake and Output for Last 24 Hours 12/16/17 12/17/17 12/18/17 23:59 23:59 23:59 Intake Total 3451.4 / 3451.4 1200 / 1200 Output Total 725 / 725 425 / 425 Balance 2726.4 / 2726.4 775 / 775 Microbiology Past 72 Hours 12/16/17 23:30 Mucosa - Nasopharyngeal Respiratory Panel (PCR) - Final RSV B Laboratory Results 12/17/17 11:58: POC Glucose 222 H 12/17/17 16:57: POC Glucose 216 H 12/18/17 01:13: POC Glucose 262 H 12/18/17 04:55: WBC 11.9 H, RBC 4.85, Hgb 14.2, Hct 42.1, MCV 86.8, MCH 29.3, MCHC 33.7, RDW 13.5, RDW Differential 42.0, Plt Count 254, MPV 10.7, Immature Gran % (Auto) 0.400, Neut % (Auto) 84.0 H, Lymph % (Auto) 4.6 L, Bee % (Auto) 10.8 H, Eos % (Auto) 0.0, Baso % (Auto) 0.2, Absolute Neuts (auto) 10.0 H, Absolute Lymphs (auto) 0.55 L, Total Counted Not Reportable 12/18/17 04:55: Sodium 139, Potassium 4.1, Chloride 105, Carbon Dioxide 25.0, Anion Gap 9, BUN 20 H, Creatinine 0.75, Estim Creat Clear Calc 39.63, Est GFR (MDRD) Af Amer 97, Est GFR (MDRD) Non-Af 80, BUN/Creatinine Ratio 26.6 H, Glucose 268 H, Calcium 8.1 L, Phosphorus 2.2 L, Magnesium 2.3 12/18/17 05:15: POC Glucose 264 H Current Medications Acetaminophen (Tylenol) 650 mg RECTAL Q6H PRN PRN PRN Reason: Fever more than 101 Albuterol/Ipratropium (Duoneb) 3 ml INHALATION Q4HWA.RT [facility] Last Admin: 12/18/17 06:34 Dose: 3 ml Amiodarone HCl (Cordarone) 100 mg GT DAILY [facility] Last Admin: 12/17/17 09:29 Dose: 100 mg Carvedilol (Coreg) 6.25 mg GT BID [facility] Last Admin: 12/17/17 21:25 Dose: 6.25 mg Chlorhexidine Gluconate () 15 ml PO BID [facility] Last Admin: 12/17/17 21:24 Dose: 15 ml Chlorhexidine Gluconate () 1 each TOPICAL DAILY [facility] Last Admin: 12/17/17 09:28 Dose: 1 each Dextrose (D50w Syringe) 0 gm IV X1 PRN; Protocol PRN Reason: Hypoglycemia Enoxaparin Sodium (Lovenox) 30 mg SC DAILY@1000 [facility] Last Admin: 12/17/17 09:29 Dose: 30 mg Glucagon () 1 mg IM .X1 PRN PRN Reason: Hypoglycemia Propofol (Diprivan) 1,000 mg in 100 mls @ 3.084 mls/hr CONT INF .Q12H TRACIE; 5 MCG/KG/MIN PRN Reason: Protocol Last Admin: 12/18/17 06:50 Dose: 3.084 mls/hr Levofloxacin (Levaquin Iv) 750 mg in 150 mls @ 100 mls/hr IV Q48 TRACIE Sodium Chloride () 250 mls @ 15 mls/hr IV .[id number] PRN PRN Reason: SALINE FLUSH Famotidine (Pepcid 20mg) 20 mg in 50 mls @ 150 mls/hr IV Q12 TRACIE Last Admin: 12/17/17 21:25 Dose: 150 mls/hr Fentanyl () 100 mls @ 2.5 mls/hr IV .Q40H [facility] Last Admin: 12/17/17 06:17 Dose: 2.5 mls/hr Enteral Nutritional Formula (Vital Af 1.2 Dung Liquid) 1,000 mls @ 60 mls/hr GT .[id number] [facility] Last Admin: 12/18/17 04:41 Dose: Not Given Insulin Aspart (Novolog Flexpen (Bkc)) 0 units SC Q6 TRACIE PRN Reason: Protocol Last Admin: 12/18/17 05:21 Dose: 3 u Methylprednisolone (Solu-Medrol) 40 mg IV Q8 TRACIE Last Admin: 12/18/17 05:21 Dose: 40 mg Ondansetron HCl (Zofran) 4 mg IV Q8H PRN PRN PRN Reason: Nausea Sodium Chloride () 5 - 30 ml IV UD PRN PRN Reason: SALINE FLUSH Last Admin: 12/18/17 05:21 Dose: 20 ml Medical Necessity - Tobacco Use Smoking Status: Never smoker Assessment/Plan 72 years old female patient with multiple cardiovascular comorbidities, admitted through the ED on 12/16/17 with shortness of breath and was profoundly hypoxic with pulse oximeter of 64% on room air. She was lethargic on arrival to the ED and that worsened and was subsequently intubated and started on mechanical ventilation for acute hypoxic respiratory failure. 1. Acute hypoxic respiratory failure, status post intubation, remains on mechanical ventilation, in ICU, failed spontaneous awakening trial this morning. [facility] consulted, continue ventilator care per protocol, continue with other sedating medications per cfo and plan for extubation per cfo. 2. Acute asthma exacerbation secondary to RSV, cannot say that there was associated RSV bronchitis or not, history of asthma, restrictive lung disease, B[place]OLO, continue as in #1 3. Severe sepsis likely secondary to RSV infection, pneumonia ruled out from recent chest x-ray, blood cultures are pending,, will continue on IV Levaquin, follow blood cultures. 4. Leukocytosis, slight elevation this a.m. secondary to steroids, continue to monitor and trend 5. Paroxysmal atrial fibrillation, rate controlled, on IV amiodarone, IV metoprolol 5 mg every 6 hours with holding parameters. Eliquis on hold 6. CAD status post CABG, ischemic cardiomyopathy, EF 45% on last 2d-ECHO, stable, no ACS 7. Type 2 diabetes mellitus, uncontrolled secondary to IV steroids, will continue with Accu-Cheks every 6 hourly and insulin sliding scale, check HbA1c 8. Hypertension, controlled, on IV metoprolol for now, will continue to monitor vitals closely 9. Hypothyroidism, on levothyroxine. 10.DVT prophylaxis - Lovenox SC. 11. GI PPx- Famotidine IV BID Code Visit Inpatient E&M: 41761 Subs Hosp L3
--- NOTE | 2017-12-18 07:45 | PN_ITS ---
Subjective: Patient did okay overnight. Patient tolerating tube feeds without complication. Patient did qualify for a spontaneous breathing trial this morning, but after 45-50 minutes started to develop significant respiratory distress and tachypnea. Patient was placed back on sedation. Fever curve appears to be improving. General: - - RASS +1 at end of spontaneous breathing trial when I evaluated her. Morbidly obese. Follows commands. HEENT: Atraumatic, PERRLA, EOMI, Normocephalic, - - Facial flushing noted. No scleral icterus or injection noted. Oral: Moist Mucosa, No Gingival or Mucosal Lesions/ Ulcerations Neck: Supple, No Nodes, Trachea Midline, JVD, Right Lungs: No rhonchi, No rales, Diminished - Improved air exchange compared to previous, Wheezes, - - Symmetric expansion. Cardiovascular: Regular rate, Regular Rhythm, Normal S1, Normal S2, No murmurs, No rub noted, No Gallop Abdomen: Bowel Sounds Present, Soft, Non Tender, Non-Distended, Obese Extremities: No clubbing, No cyanosis, Capillary Refill Less than 3 Seconds, Edema Skin: - - No significant change compared to previous Musculoskeletal: No Tenderness to Palpation of Joints or Extremities, No Muscle Wasting Lymphatic: No Cervical, Supraclavicular, or Inguinal Adenopathy Neurological: Cranial nerves II-XII grossly intact, Neuro grossly intact, Motor Exam 5/5 strength throughout Psych/Mental Status: Flat Affect, Restless Vital Signs Temp Pulse Resp BP Pulse Ox 37.7 C H 64 16 114/63 96 12/18/17 07:00 12/18/17 07:00 12/18/17 07:00 12/18/17 07:00 12/18/17 07:00 Oxygen Delivery Method Mechanical Ventilator Weight: 101.6 kg Body Mass Index (BMI) 39.6 Intake and Output for Last 24 Hours 12/16/17 12/17/17 12/18/17 23:59 23:59 23:59 Intake Total 3451.4 / 3451.4 1200 / 1200 Output Total 725 / 725 425 / 425 Balance 2726.4 / 2726.4 775 / 775 Labs (Last 48 Hours) 12/16/17 12/16/17 12/17/17 23:30 23:55 00:33 WBC RBC Hgb Hct MCV MCH MCHC RDW RDW Differential Plt Count MPV Immature Gran % (Auto) Neut % (Auto) Lymph % (Auto) Alfalfa % (Auto) Eos % (Auto) Baso % (Auto) Absolute Neuts (auto) Absolute Lymphs (auto) Total Counted Differential Comment Specimen Type ART Sample Site R Radial pH 7.41 Bicarbonate Actual 24.1 POC Total CO2 25 Base Excess -1 O2 Saturation 98 O2 % 40 ABG pCO2 37.9 ABG pO2 103 H Anibal Test NA Respiration Rate 16 O2 Delivery Device Vent Minute Volume 7.00 Vent Mode A-C Tidal Volume 450 POC PEEP 5 Blood Gas Notified Whom [facility] Blood Gas Notified Time 2349 Sodium Potassium Chloride Carbon Dioxide Anion Gap BUN Creatinine Estim Creat Clear Calc Est GFR (MDRD) Af Amer Est GFR (MDRD) Non-Af BUN/Creatinine Ratio Glucose Lactic Acid Calcium Phosphorus Magnesium MRSA (PCR) Negative POC Glucose 198 H 12/17/17 12/17/17 12/17/17 01:30 04:15 04:15 WBC 8.4 RBC 4.50 Hgb 13.1 Hct 39.4 MCV 87.6 MCH 29.1 MCHC 33.2 RDW 13.7 RDW Differential 44.2 H Plt Count 212 MPV 10.3 Immature Gran % (Auto) 0.200 Neut % (Auto) 87.4 H Lymph % (Auto) 5.2 L Alfalfa % (Auto) 7.0 Eos % (Auto) 0.0 Baso % (Auto) 0.2 Absolute Neuts (auto) 7.4 Absolute Lymphs (auto) 0.44 L Total Counted Not Reportable Differential Comment SCANNED Specimen Type Sample Site pH Bicarbonate Actual POC Total CO2 Base Excess O2 Saturation O2 % ABG pCO2 ABG pO2 Anibal Test Respiration Rate O2 Delivery Device Minute Volume Vent Mode Tidal Volume POC PEEP Blood Gas Notified Whom Blood Gas Notified Time Sodium 140 Potassium 4.1 Chloride 105 Carbon Dioxide 25.0 Anion Gap 10 BUN 19 H Creatinine 0.83 Estim Creat Clear Calc 47.74 Est GFR (MDRD) Af Amer 86 Est GFR (MDRD) Non-Af 71 BUN/Creatinine Ratio 22.8 H Glucose 217 H Lactic Acid 1.9 Calcium 7.5 L Phosphorus Magnesium MRSA (PCR) POC Glucose 12/17/17 12/17/17 12/17/17 05:50 11:58 16:57 WBC RBC Hgb Hct MCV MCH MCHC RDW RDW Differential Plt Count MPV Immature Gran % (Auto) Neut % (Auto) Lymph % (Auto) Alfalfa % (Auto) Eos % (Auto) Baso % (Auto) Absolute Neuts (auto) Absolute Lymphs (auto) Total Counted Differential Comment Specimen Type Sample Site pH Bicarbonate Actual POC Total CO2 Base Excess O2 Saturation O2 % ABG pCO2 ABG pO2 Anibal Test Respiration Rate O2 Delivery Device Minute Volume Vent Mode Tidal Volume POC PEEP Blood Gas Notified Whom Blood Gas Notified Time Sodium Potassium Chloride Carbon Dioxide Anion Gap BUN Creatinine Estim Creat Clear Calc Est GFR (MDRD) Af Amer Est GFR (MDRD) Non-Af BUN/Creatinine Ratio Glucose Lactic Acid Calcium Phosphorus Magnesium MRSA (PCR) POC Glucose 240 H 222 H 216 H 12/18/17 12/18/17 12/18/17 01:13 04:55 04:55 WBC 11.9 H RBC 4.85 Hgb 14.2 Hct 42.1 MCV 86.8 MCH 29.3 MCHC 33.7 RDW 13.5 RDW Differential 42.0 Plt Count 254 MPV 10.7 Immature Gran % (Auto) 0.400 Neut % (Auto) 84.0 H Lymph % (Auto) 4.6 L Alfalfa % (Auto) 10.8 H Eos % (Auto) 0.0 Baso % (Auto) 0.2 Absolute Neuts (auto) 10.0 H Absolute Lymphs (auto) 0.55 L Total Counted Not Reportable Differential Comment Specimen Type Sample Site pH Bicarbonate Actual POC Total CO2 Base Excess O2 Saturation O2 % ABG pCO2 ABG pO2 Anibal Test Respiration Rate O2 Delivery Device Minute Volume Vent Mode Tidal Volume POC PEEP Blood Gas Notified Whom Blood Gas Notified Time Sodium 139 Potassium 4.1 Chloride 105 Carbon Dioxide 25.0 Anion Gap 9 BUN 20 H Creatinine 0.75 Estim Creat Clear Calc 39.63 Est GFR (MDRD) Af Amer 97 Est GFR (MDRD) Non-Af 80 BUN/Creatinine Ratio 26.6 H Glucose 268 H Lactic Acid Calcium 8.1 L Phosphorus 2.2 L Magnesium 2.3 MRSA (PCR) POC Glucose 262 H 12/18/17 05:15 WBC RBC Hgb Hct MCV MCH MCHC RDW RDW Differential Plt Count MPV Immature Gran % (Auto) Neut % (Auto) Lymph % (Auto) Alfalfa % (Auto) Eos % (Auto) Baso % (Auto) Absolute Neuts (auto) Absolute Lymphs (auto) Total Counted Differential Comment Specimen Type Sample Site pH Bicarbonate Actual POC Total CO2 Base Excess O2 Saturation O2 % ABG pCO2 ABG pO2 Anibal Test Respiration Rate O2 Delivery Device Minute Volume Vent Mode Tidal Volume POC PEEP Blood Gas Notified Whom Blood Gas Notified Time Sodium Potassium Chloride Carbon Dioxide Anion Gap BUN Creatinine Estim Creat Clear Calc Est GFR (MDRD) Af Amer Est GFR (MDRD) Non-Af BUN/Creatinine Ratio Glucose Lactic Acid Calcium Phosphorus Magnesium MRSA (PCR) POC Glucose 264 H Microbiology 12/16/17 23:30 Mucosa - Nasopharyngeal Respiratory Panel (PCR) - Final RSV B Medical Necessity - Tobacco Use Smoking Status: Never smoker Assessment/Plan RECOMMENDATIONS: 1. Continue fentanyl and propofol for sedation 2. Continue empiric antibiotics until cultures negative at 48 hours 3. Continue IV steroids, bronchodilators 4. Spontaneous awakening and breathing trials per protocol 5. Add basal insulin 6. Continue tube feeds IMPRESSIONS: 1. Acute combined respiratory failure secondary to asthma exacerbation secondary to RSV Patient's fever curve appears to be improving. Patient did test positive for RSV. We will continue with empiric antibiotics for now until cultures negative at 48 hours, but low clinical suspicion for concomitant bacterial infection. Patient should remain on current bronchodilators and steroids for now. Anticipate possible extubation tomorrow. Spontaneous breathing trial and awakening trial per protocol. 2. Severe sepsis Likely secondary to RSV. Patient is spiking significant fevers and did report a productive cough. Atypical pneumonia may be an etiology. Levaquin is on appropriate initial therapy. [place] cultures are currently pending. If these are negative at 48 hours, discontinuation of Levaquin therapy may be appropriate. 3. Paroxysmal A. fib/CAD status post CABG/chronic systolic CHF Patient is in sinus rhythm and rate controlled at this time. No difficulty with blood pressure overnight. Patient does have a dilated RV noted on chest x-ray. Watch I and O's closely. Patient tolerating tube feeds well. Blood pressure is acceptable on current medications. 4. Diabetes mellitus type 2 Patient requires steroid therapy at this time. On tube feeds, patient will likely require insulin coverage. Increased blood glucose noted over the last 24 hours. Will give a single dose of Levemir therapy. Possible need for scheduling if patient were to remain intubated past tomorrow morning. 5. Hypothyroidism/hypertension/history of obstructive sleep apnea/migraine/ advanced age Complicates care, management, recovery and prognosis. Likely okay to continue with baseline medications. Patient will likely require CPAP versus BiPAP support following extubation with sleep. TIME: 31 minutes of critical care time spent addressing patient's acute combined respiratory failure, severe sepsis, diabetes, review of all data and collaboration with care team (5:30 AM to 6:30 AM) Code Visit 9xxxx: [id number] Critical care first hour
[2017-12-18] MEDS: Carvedilol 6.25 MG Tablet GT ×2 (09:43→23:40)
[2017-12-18] MEDS: Enoxaparin 30 MG/0.3 ML Syringe SC (09:43)
[2017-12-18] MEDS: Chlorhexidine 15 ML PO ×2 (09:43→23:41)
[2017-12-18] MEDS: Amiodarone 200 MG Tablet 100 MG GT (09:43)
[2017-12-18] MEDS: CHLORHEXIDINE GLUC 2% CLOTH 1 EACH TOWELETTE TOPICAL ×2 (09:44→23:53)
[2017-12-18] MEDS: levoFLOXacin IV 750 MG/150 ML BAG 100 MG IV (09:44)
[2017-12-18 11:30] LABS: Bedside Glucose 318 mg/dL (70-110)
--- NOTE | 2017-12-18 15:54 | CPS ---
Physical Therapy just completed working with patient at this time, up to side of bed, standing, then transfer to chair.
[2017-12-18 18:46] LABS: Bedside Glucose 244 mg/dL (70-110)
--- NOTE | 2017-12-18 22:14 | RAD_ITS ---
XR Chest 1 View INDICATION: LINE PLACEMENT COMPARISON: Prior day TECHNIQUE: Frontal view of the chest FINDINGS: ET tube is seen in place with tip approximately 3 cm above the millie, unchanged. NG tube is seen with tip extending below the diaphragm, presumably in the stomach. Right-sided subclavian access central line is seen with tip extending to the SVC/RA junction, stable. Heart size is mildly enlarged. Sternotomy wires are noted. Mild atelectasis is seen at the lung bases, lungs appear otherwise clear. RAD/Chest 1 View (Portable) IMPRESSION: Tubes and lines in stable position. Mild bibasilar atelectasis. at [id number] Reported and signed by: Dominique Calzada MD Electronically Signed: Dominique Calzada MD at 22:26 EDT Tel , Service support ,
[2017-12-18] MEDS: Vital AF 1.2 Cal Liquid 1,000 ML 60 ML GT (23:52)
[2017-12-19] VITALS (40 sets, daily range): BP systolic 96–177; BP diastolic 54–108; PULSE 46–117; RESP 12–37; TEMP 36.7–37.8; O2SAT 20–99
[2017-12-19] MEDS: Propofol 10MG/Ml 1,000 MG/100 ML Bottle 3.084 MG CONT INF
[2017-12-19 00:56] LABS: Bedside Glucose 239 mg/dL (70-110)
[2017-12-19 04:42] LABS: Absolute Lymphocyte Count 0.61 X10^3/ul (0.83-4.51); Absolute Neutrophil Count 9.2 X10^3/uL (2.0-7.7); Basophil# 0.01 X10^3/uL; Basophil% 0.1 % (0-1); Hematocrit 42.4 % (37-47); Lymphocyte # 0.61 X10^3/ul (4.0); Lymphocyte % 5.7 % (19-41); Mean Corpuscular Hgb 28.9 pg (27.0-32.0); Mean Corpuscular Volume 87.4 fL (81-99); Mean Platelet Vol. 10.4 fl (6.2-12.0); Monocyte# 0.82 X10^3/uL; Monocyte% 7.7 % (0-10); Neutrophil # 9.21 X10^3/uL (2.7-7.7); Neutrophil % 86.1 % (47-70); Platelet Count 206 K/mm3 (150-450); RBC Distribution Width CV 13.4 % (11.6-14.6); RBC Distribution Width SD 42.7 fl (35.1-43.9); Red Blood Count 4.85 M/mm3 (4.2-5.4); White Blood Count 10.7 K/mm3 (4.4-11.0)
[2017-12-19 04:46] LABS: POSITIVE COUNT NO; POSITIVE DIFFERENTIAL NO; POSITIVE MORPHOLOGY NO
[2017-12-19] MEDS: 0.9% NaCl Peripheral Flush Adult/Peds IV ×2 (04:54→21:15)
[2017-12-19 04:57] LABS: Anion Gap 8 (5-15); BUN 25 mg/dL (7-18); BUN/Creat Ratio 35.8 RATIO (10-20); Calcium,Total 8.4 mg/dL (8.5-10.1); Chloride 105 mmol/L (98-107); EST Glomerular Filtration Rate 87 mL/min (>60); Est Glom Filt Rate - Afr Amer 106 mL/min (>60); Estimated Creatinine Clearance 39.63 ml/min; Glucose 242 mg/dL (74-106); Potassium 4.4 mmol/L (3.5-5.1); Sodium Level 139 mmol/L (136-145)
[2017-12-19 05:11] LABS: Bedside Glucose 271 mg/dL (70-110)
[2017-12-19] MEDS: Ipratropium/Albuterol Sulfate 3 ML AMPUL.NEB INHALATION ×4 (06:42→22:27)
--- NOTE | 2017-12-19 06:53 | PCM.PN.INT ---
Subjective: The patient was seen and examined at the bedside this morning. Events from the last 24 hours have been reviewed. The patient is currently afebrile, hemodynamically stable and maintaining appropriate oxygen saturations with an FiO2 requirement of 30%. The patient passed her spontaneous breathing trial this morning. No significant secretions were noted by respiratory therapy. She is currently alert and following commands appropriately. Objective: The patient's most recent lab work, culture data and imaging studies have all been personally reviewed. Blood and urine cultures have shown no growth to date. Respiratory viral panel was positive for RSV. Surface echocardiogram from March 2017 revealed normal LV size with mild segmental systolic dysfunction with an ejection fraction of 45%. Right ventricular systolic pressure was estimated to be 35 mmHg. The patient has known obstructive sleep apnea, for which it was recommended that she be placed on bilevel with a pressure setting of 15/9 cm of water with medication. The patient's most recent pulmonary function testing completed in July 2017 revealed evidence of a mild restrictive ventilatory defect with a reduction in diffusing capacity out of proportion to the degree of restriction. General: - - Remains intubated and mechanically ventilated. Currently tolerating CPAP mode mechanical ventilation. HEENT: Atraumatic, PERRLA, Normocephalic Oral: No Gingival or Mucosal Lesions/ Ulcerations, - - Endotracheal and OG tubes remain in place Neck: Supple, No Nodes, Trachea Midline Lungs: No rhonchi, No wheeze, No rales, Diminished Cardiovascular: Regular rate, Regular Rhythm, Normal S1, Normal S2, No murmurs, No rub noted, No Gallop Abdomen: Bowel Sounds Present, Soft, Non Tender, Obese Extremities: No clubbing, No cyanosis, Edema Skin: No rashes, No breakdown Musculoskeletal: No Tenderness to Palpation of Joints or Extremities Lymphatic: No Cervical, Supraclavicular, or Inguinal Adenopathy Neurological: - - No focal neurological deficits. Moves all extremities spontaneously. Currently alert and following commands appropriately. Vital Signs Temp Pulse Resp BP Pulse Ox 98.7 F 89 24 H 166/91 H 95 12/19/17 06:00 12/19/17 06:00 12/19/17 06:00 12/19/17 06:00 12/19/17 06:00 Oxygen Delivery Method Mechanical Ventilator Weight: 222 lb 3.615 oz Body Mass Index (BMI) 39.6 Intake and Output for Last 24 Hours 12/17/17 12/18/17 12/19/17 23:59 23:59 23:59 Intake Total 3451.4 / 3451.4 2118 / 2118 443 / 443 Output Total 725 / 725 1000 / 1000 325 / 325 Balance 2726.4 / 2726.4 1118 / 1118 118 / 118 Labs (Last 48 Hours) 12/17/17 12/17/17 12/18/17 11:58 16:57 01:13 WBC RBC Hgb Hct MCV MCH MCHC RDW RDW Differential Plt Count MPV Immature Gran % (Auto) Neut % (Auto) Lymph % (Auto) [place] % (Auto) Eos % (Auto) Baso % (Auto) Absolute Neuts (auto) Absolute Lymphs (auto) Total Counted Sodium Potassium Chloride Carbon Dioxide Anion Gap BUN Creatinine Estim Creat Clear Calc Est GFR (MDRD) Af Amer Est GFR (MDRD) Non-Af BUN/Creatinine Ratio Glucose Calcium Phosphorus Magnesium POC Glucose 222 H 216 H 262 H 12/18/17 12/18/17 12/18/17 04:55 04:55 05:15 WBC 11.9 H RBC 4.85 Hgb 14.2 Hct 42.1 MCV 86.8 MCH 29.3 MCHC 33.7 RDW 13.5 RDW Differential 42.0 Plt Count 254 MPV 10.7 Immature Gran % (Auto) 0.400 Neut % (Auto) 84.0 H Lymph % (Auto) 4.6 L [place] % (Auto) 10.8 H Eos % (Auto) 0.0 Baso % (Auto) 0.2 Absolute Neuts (auto) 10.0 H Absolute Lymphs (auto) 0.55 L Total Counted Not Reportable Sodium 139 Potassium 4.1 Chloride 105 Carbon Dioxide 25.0 Anion Gap 9 BUN 20 H Creatinine 0.75 Estim Creat Clear Calc 39.63 Est GFR (MDRD) Af Amer 97 Est GFR (MDRD) Non-Af 80 BUN/Creatinine Ratio 26.6 H Glucose 268 H Calcium 8.1 L Phosphorus 2.2 L Magnesium 2.3 POC Glucose 264 H 12/18/17 12/18/17 12/18/17 11:21 18:34 23:50 WBC RBC Hgb Hct MCV MCH MCHC RDW RDW Differential Plt Count MPV Immature Gran % (Auto) Neut % (Auto) Lymph % (Auto) [place] % (Auto) Eos % (Auto) Baso % (Auto) Absolute Neuts (auto) Absolute Lymphs (auto) Total Counted Sodium Potassium Chloride Carbon Dioxide Anion Gap BUN Creatinine Estim Creat Clear Calc Est GFR (MDRD) Af Amer Est GFR (MDRD) Non-Af BUN/Creatinine Ratio Glucose Calcium Phosphorus Magnesium POC Glucose 318 H 244 H 239 H 12/19/17 12/19/17 12/19/17 04:25 04:25 04:36 WBC 10.7 RBC 4.85 Hgb 14.0 Hct 42.4 MCV 87.4 MCH 28.9 MCHC 33.0 RDW 13.4 RDW Differential 42.7 Plt Count 206 MPV 10.4 Immature Gran % (Auto) 0.400 Neut % (Auto) 86.1 H Lymph % (Auto) 5.7 L [place] % (Auto) 7.7 Eos % (Auto) 0.0 Baso % (Auto) 0.1 Absolute Neuts (auto) 9.2 H Absolute Lymphs (auto) 0.61 L Total Counted Not Reportable Sodium 139 Potassium 4.4 Chloride 105 Carbon Dioxide 26.0 Anion Gap 8 BUN 25 H Creatinine 0.70 Estim Creat Clear Calc 39.63 Est GFR (MDRD) Af Amer 106 Est GFR (MDRD) Non-Af 87 BUN/Creatinine Ratio 35.8 H Glucose 242 H Calcium 8.4 L Phosphorus Magnesium POC Glucose 271 H Microbiology 12/16/17 23:30 Mucosa - Nasopharyngeal Respiratory Panel (PCR) - Final RSV B Clinical Impression(s) from Imaging Studies Chest X-Ray 12/16/17 20:32 IMPRESSION: Cardiomegaly. No acute infiltrate. Electronically Signed: Eric Cole DO at 21:42 EDT , Service support , Chest X-Ray 12/16/17 20:42 IMPRESSION: The endotracheal tube terminates about 5.3 cm above the millie. A gastric tube extends into the upper abdomen. There is bibasilar atelectasis. Electronically Signed: Angie Jamison MD at 22:03 EDT Tel Direct: [phone], Service support , KUB X-Ray 12/16/17 20:55 IMPRESSION: The tip of the gastric tube is in the expected location of the antrum of the stomach. Electronically Signed: Angie Jamison MD at 22:06 EDT Tel Direct: [phone], Service support , Chest X-Ray 12/16/17 21:50 IMPRESSION: Right subclavian central line in place with the tip in the lower SVC. No pneumothorax. Endotracheal tube and NG tube remain in stable position. No acute infiltrate. Electronically Signed: Eric Cole DO at 22:51 EDT , Service support , Chest X-Ray 12/17/17 04:35 IMPRESSION: Moderate cardiomegaly. No failure. No pneumonia. Pleural reactive change in the left costophrenic angle Electronically Signed: Donny Bee, at 8:37 EDT Tel , Service support , Chest X-Ray 12/18/17 22:14 IMPRESSION: Tubes and lines in stable position. Mild bibasilar atelectasis. at 2328 Reported and signed by: Dominique Calzada MD Electronically Signed: Dominique Calzada MD at 22:26 EDT Tel , Service support , Medical Necessity - Tobacco Use Smoking Status: Never smoker Assessment/Plan RECOMMENDATIONS: 1. Proceed with a trial of extubation this morning. 2. Prior to extubation, obtain sputum culture 3. Continue scheduled aerosol treatments. 4. Levaquin can be discontinued from my perspective. 5. Continue IV steroids today with plans to transition to prednisone beginning tomorrow 6. Wean oxygen to maintain saturations at or above 90% 7. Once extubated, perform bedside swallow evaluation and advance diet accordingly. 8. Encourage incentive spirometer use and mobilize patient as tolerated. 9. Start BiPAP therapy 15/9 with naps and nightly. IMPRESSIONS: 1. Acute hypoxemic and hypercarbic respiratory failure secondary to asthma exacerbation due to RSV infection The patient is improved from a clinical perspective and is currently a candidate for a trial of extubation this morning. Once extubated, plan to wean supplemental oxygen to maintain saturations at or above 90%. Continue scheduled aerosol treatment along with IV steroids for now. Initiate BiPAP therapy with naps and nightly. Encourage incentive spirometer use and mobilize patient as tolerated. 2. Severe sepsis secondary to RSV Continue current supportive measures with scheduled aerosol treatments and IV steroids. The patient can likely be transitioned to prednisone beginning tomorrow. 3. Paroxysmal atrial fibrillation/coronary artery disease status post CABG/chronic systolic heart failure Continue current medical therapy with amiodarone and beta-sara. 4. Diabetes type 2 Continue sliding-scale coverage and start Levemir today given hyperglycemia due to steroids. 5. Known obstructive sleep apnea Plan to initiate bilevel therapy at a pressure setting of 15/9 cm of water with humidification, once extubated. 6. Hypothyroidism/hypertension/history of obstructive sleep apnea/migraine/advanced age Complicates care, management, recovery and prognosis. Continue home medications as indicated. Start BiPAP once extubated. TIME: 38 minutes of critical care time, independent of procedures, was spent addressing the patient's acute hypoxic and hypercarbic respiratory's failure, asthma exacerbation secondary to RSV infection, severe sepsis, diabetes, obstructive sleep apnea, review of all data and collaboration with the care team. ([id number]) Code Visit 9xxxx: [id number] Critical care first hour
--- NOTE | 2017-12-19 06:57 | PN_ITS ---
Subjective: The patient was seen and examined at the bedside this morning. Events from the last 24 hours have been reviewed. The patient is currently afebrile, hemodynamically stable and maintaining appropriate oxygen saturations with an FiO2 requirement of 30%. The patient passed her spontaneous breathing trial this morning. No significant secretions were noted by respiratory therapy. She is currently alert and following commands appropriately. Objective: The patient's most recent lab work, culture data and imaging studies have all been personally reviewed. Blood and urine cultures have shown no growth to date. Respiratory viral panel was positive for RSV. Surface echocardiogram from March 2017 revealed normal LV size with mild segmental systolic dysfunction with an ejection fraction of 45%. Right ventricular systolic pressure was estimated to be 35 mmHg. The patient has known obstructive sleep apnea, for which it was recommended that she be placed on bilevel with a pressure setting of 15/9 cm of water with medication. The patient's most recent pulmonary function testing completed in July 2017 revealed evidence of a mild restrictive ventilatory defect with a reduction in diffusing capacity out of proportion to the degree of restriction. General: - - Remains intubated and mechanically ventilated. Currently tolerating CPAP mode mechanical ventilation. HEENT: Atraumatic, PERRLA, Normocephalic Oral: No Gingival or Mucosal Lesions/ Ulcerations, - - Endotracheal and OG tubes remain in place Neck: Supple, No Nodes, Trachea Midline Lungs: No rhonchi, No wheeze, No rales, Diminished Cardiovascular: Regular rate, Regular Rhythm, Normal S1, Normal S2, No murmurs, No rub noted, No Gallop Abdomen: Bowel Sounds Present, Soft, Non Tender, Obese Extremities: No clubbing, No cyanosis, Edema Skin: No rashes, No breakdown Musculoskeletal: No Tenderness to Palpation of Joints or Extremities Lymphatic: No Cervical, Supraclavicular, or Inguinal Adenopathy Neurological: - - No focal neurological deficits. Moves all extremities spontaneously. Currently alert and following commands appropriately. Vital Signs Temp Pulse Resp BP Pulse Ox 98.7 F 89 24 H 166/91 H 95 12/19/17 06:00 12/19/17 06:00 12/19/17 06:00 12/19/17 06:00 12/19/17 06:00 Oxygen Delivery Method Mechanical Ventilator Weight: 222 lb 3.615 oz Body Mass Index (BMI) 39.6 Intake and Output for Last 24 Hours 12/17/17 12/18/17 12/19/17 23:59 23:59 23:59 Intake Total 3451.4 / 3451.4 2118 / 2118 443 / 443 Output Total 725 / 725 1000 / 1000 325 / 325 Balance 2726.4 / 2726.4 1118 / 1118 118 / 118 Labs (Last 48 Hours) 12/17/17 12/17/17 12/18/17 11:58 16:57 01:13 WBC RBC Hgb Hct MCV MCH MCHC RDW RDW Differential Plt Count MPV Immature Gran % (Auto) Neut % (Auto) Lymph % (Auto) [place] % (Auto) Eos % (Auto) Baso % (Auto) Absolute Neuts (auto) Absolute Lymphs (auto) Total Counted Sodium Potassium Chloride Carbon Dioxide Anion Gap BUN Creatinine Estim Creat Clear Calc Est GFR (MDRD) Af Amer Est GFR (MDRD) Non-Af BUN/Creatinine Ratio Glucose Calcium Phosphorus Magnesium POC Glucose 222 H 216 H 262 H 12/18/17 12/18/17 12/18/17 04:55 04:55 05:15 WBC 11.9 H RBC 4.85 Hgb 14.2 Hct 42.1 MCV 86.8 MCH 29.3 MCHC 33.7 RDW 13.5 RDW Differential 42.0 Plt Count 254 MPV 10.7 Immature Gran % (Auto) 0.400 Neut % (Auto) 84.0 H Lymph % (Auto) 4.6 L [place] % (Auto) 10.8 H Eos % (Auto) 0.0 Baso % (Auto) 0.2 Absolute Neuts (auto) 10.0 H Absolute Lymphs (auto) 0.55 L Total Counted Not Reportable Sodium 139 Potassium 4.1 Chloride 105 Carbon Dioxide 25.0 Anion Gap 9 BUN 20 H Creatinine 0.75 Estim Creat Clear Calc 39.63 Est GFR (MDRD) Af Amer 97 Est GFR (MDRD) Non-Af 80 BUN/Creatinine Ratio 26.6 H Glucose 268 H Calcium 8.1 L Phosphorus 2.2 L Magnesium 2.3 POC Glucose 264 H 12/18/17 12/18/17 12/18/17 11:21 18:34 23:50 WBC RBC Hgb Hct MCV MCH MCHC RDW RDW Differential Plt Count MPV Immature Gran % (Auto) Neut % (Auto) Lymph % (Auto) [place] % (Auto) Eos % (Auto) Baso % (Auto) Absolute Neuts (auto) Absolute Lymphs (auto) Total Counted Sodium Potassium Chloride Carbon Dioxide Anion Gap BUN Creatinine Estim Creat Clear Calc Est GFR (MDRD) Af Amer Est GFR (MDRD) Non-Af BUN/Creatinine Ratio Glucose Calcium Phosphorus Magnesium POC Glucose 318 H 244 H 239 H 12/19/17 12/19/17 12/19/17 04:25 04:25 04:36 WBC 10.7 RBC 4.85 Hgb 14.0 Hct 42.4 MCV 87.4 MCH 28.9 MCHC 33.0 RDW 13.4 RDW Differential 42.7 Plt Count 206 MPV 10.4 Immature Gran % (Auto) 0.400 Neut % (Auto) 86.1 H Lymph % (Auto) 5.7 L [place] % (Auto) 7.7 Eos % (Auto) 0.0 Baso % (Auto) 0.1 Absolute Neuts (auto) 9.2 H Absolute Lymphs (auto) 0.61 L Total Counted Not Reportable Sodium 139 Potassium 4.4 Chloride 105 Carbon Dioxide 26.0 Anion Gap 8 BUN 25 H Creatinine 0.70 Estim Creat Clear Calc 39.63 Est GFR (MDRD) Af Amer 106 Est GFR (MDRD) Non-Af 87 BUN/Creatinine Ratio 35.8 H Glucose 242 H Calcium 8.4 L Phosphorus Magnesium POC Glucose 271 H Microbiology 12/16/17 23:30 Mucosa - Nasopharyngeal Respiratory Panel (PCR) - Final RSV B Clinical Impression(s) from Imaging Studies Chest X-Ray 12/16/17 20:32 IMPRESSION: Cardiomegaly. No acute infiltrate. Electronically Signed: Eric Cole DO at 21:42 EDT , Service support , Chest X-Ray 12/16/17 20:42 IMPRESSION: The endotracheal tube terminates about 5.3 cm above the millie. A gastric tube extends into the upper abdomen. There is bibasilar atelectasis. Electronically Signed: Angie Jamison MD at 22:03 EDT Tel Direct: [phone], Service support , KUB X-Ray 12/16/17 20:55 IMPRESSION: The tip of the gastric tube is in the expected location of the antrum of the stomach. Electronically Signed: Angie Jamison MD at 22:06 EDT Tel Direct: [phone], Service support , Chest X-Ray 12/16/17 21:50 IMPRESSION: Right subclavian central line in place with the tip in the lower SVC. No pneumothorax. Endotracheal tube and NG tube remain in stable position. No acute infiltrate. Electronically Signed: Eric Cole DO at 22:51 EDT , Service support , Chest X-Ray 12/17/17 04:35 IMPRESSION: Moderate cardiomegaly. No failure. No pneumonia. Pleural reactive change in the left costophrenic angle Electronically Signed: Donny Bee, at 8:37 EDT Tel , Service support , Chest X-Ray 12/18/17 22:14 IMPRESSION: Tubes and lines in stable position. Mild bibasilar atelectasis. at 2328 Reported and signed by: Dominique Calzada MD Electronically Signed: Dominique Calzada MD at 22:26 EDT Tel , Service support , Medical Necessity - Tobacco Use Smoking Status: Never smoker Assessment/Plan RECOMMENDATIONS: 1. Proceed with a trial of extubation this morning. 2. Prior to extubation, obtain sputum culture 3. Continue scheduled aerosol treatments. 4. Levaquin can be discontinued from my perspective. 5. Continue IV steroids today with plans to transition to prednisone beginning tomorrow 6. Wean oxygen to maintain saturations at or above 90% 7. Once extubated, perform bedside swallow evaluation and advance diet accordingly. 8. Encourage incentive spirometer use and mobilize patient as tolerated. 9. Start BiPAP therapy 15/9 with naps and nightly. IMPRESSIONS: 1. Acute hypoxemic and hypercarbic respiratory failure secondary to asthma exacerbation due to RSV infection The patient is improved from a clinical perspective and is currently a candidate for a trial of extubation this morning. Once extubated, plan to wean supplemental oxygen to maintain saturations at or above 90%. Continue scheduled aerosol treatment along with IV steroids for now. Initiate BiPAP therapy with naps and nightly. Encourage incentive spirometer use and mobilize patient as tolerated. 2. Severe sepsis secondary to RSV Continue current supportive measures with scheduled aerosol treatments and IV steroids. The patient can likely be transitioned to prednisone beginning tomorrow. 3. Paroxysmal atrial fibrillation/coronary artery disease status post CABG/ chronic systolic heart failure Continue current medical therapy with amiodarone and beta-sara. 4. Diabetes type 2 Continue sliding-scale coverage and start Levemir today given hyperglycemia due to steroids. 5. Known obstructive sleep apnea Plan to initiate bilevel therapy at a pressure setting of 15/9 cm of water with humidification, once extubated. 6. Hypothyroidism/hypertension/history of obstructive sleep apnea/migraine/ advanced age Complicates care, management, recovery and prognosis. Continue home medications as indicated. Start BiPAP once extubated. TIME: 38 minutes of critical care time, independent of procedures, was spent addressing the patient's acute hypoxic and hypercarbic respiratory's failure, asthma exacerbation secondary to RSV infection, severe sepsis, diabetes, obstructive sleep apnea, review of all data and collaboration with the care team. ([id number]) Code Visit 9xxxx: [id number] Critical care first hour
--- NOTE | 2017-12-19 07:13 | PCM.PN.HOSP ---
Subjective: Patient is a 72-year-old lady with multiple comorbidities admitted with progressive shortness of breath and assessment of acute hypoxemic and hypercarbic respiratory failure was made admitted to the intensive care unit where patient has since been managed on the vent. Patient infectious assay came back positive for RSV Objective: GENERAL: On the vent HEENT: ET tube and placed NECK; supple, normal thyroid, CHEST: Diminished bilateral wheezing HEART: Regular S1 S2, no audible murmurs ABDOMEN: soft, normoactive bowel sounds, RECTAL: deferred EXTREMITIES: No edema, no clubbing, no cyanosis. OIL FIELD ROUSTABOUT: Awake, no lateralizing signs. SKIN: No Rash Vitals/I&O's: Vital Signs Temp Pulse Resp BP Pulse Ox 98.7 F 89 24 H 166/91 H 95 12/19/17 06:00 12/19/17 06:00 12/19/17 06:00 12/19/17 06:00 12/19/17 06:00 Oxygen Delivery Method Mechanical Ventilator Weight: 100.8 kg Body Mass Index (BMI) 39.6 Intake and Output for Last 24 Hours 12/17/17 12/18/17 12/19/17 23:59 23:59 23:59 Intake Total 3451.4 / 3451.4 2118 / 2118 443 / 443 Output Total 725 / 725 1000 / 1000 325 / 325 Balance 2726.4 / 2726.4 1118 / 1118 118 / 118 Microbiology Past 72 Hours 12/16/17 23:30 Mucosa - Nasopharyngeal Respiratory Panel (PCR) - Final RSV B Laboratory Results 12/18/17 11:21: POC Glucose 318 H 12/18/17 18:34: POC Glucose 244 H 12/18/17 23:50: POC Glucose 239 H 12/19/17 04:25: WBC 10.7, RBC 4.85, Hgb 14.0, Hct 42.4, MCV 87.4, MCH 28.9, MCHC 33.0, RDW 13.4, RDW Differential 42.7, Plt Count 206, MPV 10.4, Immature Gran % (Auto) 0.400, Neut % (Auto) 86.1 H, Lymph % (Auto) 5.7 L, Power % (Auto) 7.7, Eos % (Auto) 0.0, Baso % (Auto) 0.1, Absolute Neuts (auto) 9.2 H, Absolute Lymphs (auto) 0.61 L, Total Counted Not Reportable 12/19/17 04:25: Sodium 139, Potassium 4.4, Chloride 105, Carbon Dioxide 26.0, Anion Gap 8, BUN 25 H, Creatinine 0.70, Estim Creat Clear Calc 39.63, Est GFR (MDRD) Af Amer 106, Est GFR (MDRD) Non-Af 87, BUN/Creatinine Ratio 35.8 H, Glucose 242 H, Calcium 8.4 L 12/19/17 04:36: POC Glucose 271 H Current Medications Acetaminophen (Tylenol) 650 mg RECTAL Q6H PRN PRN PRN Reason: Fever more than 101 Albuterol/Ipratropium (Duoneb) 3 ml INHALATION Q4HWA.RT [facility] Last Admin: 12/19/17 06:42 Dose: 3 ml Amiodarone HCl (Cordarone) 100 mg GT DAILY [facility] Last Admin: 12/18/17 09:43 Dose: 100 mg Carvedilol (Coreg) 6.25 mg GT BID [facility] Last Admin: 12/18/17 23:40 Dose: 6.25 mg Chlorhexidine Gluconate () 15 ml PO BID [facility] Last Admin: 12/18/17 23:41 Dose: 15 ml Chlorhexidine Gluconate () 1 each TOPICAL DAILY [facility] Last Admin: 12/18/17 23:53 Dose: 1 each Dextrose (D50w Syringe) 0 gm IV X1 PRN; Protocol PRN Reason: Hypoglycemia Enoxaparin Sodium (Lovenox) 30 mg SC DAILY@1000 [facility] Last Admin: 12/18/17 09:43 Dose: 30 mg Glucagon () 1 mg IM .X1 PRN PRN Reason: Hypoglycemia Propofol (Diprivan) 1,000 mg in 100 mls @ 3.084 mls/hr CONT INF .Q12H TRACIE; 5 MCG/KG/MIN PRN Reason: Protocol Last Admin: 12/19/17 00:00 Dose: 3.084 mls/hr Levofloxacin (Levaquin Iv) 750 mg in 150 mls @ 100 mls/hr IV Q48 [facility] Last Admin: 12/18/17 09:44 Dose: 100 mls/hr Sodium Chloride () 250 mls @ 15 mls/hr IV .[id number] PRN PRN Reason: SALINE FLUSH Famotidine (Pepcid 20mg) 20 mg in 50 mls @ 150 mls/hr IV Q12 [facility] Last Admin: 12/18/17 23:52 Dose: 150 mls/hr Fentanyl () 100 mls @ 2.5 mls/hr IV .Q40H [facility] Last Admin: 12/18/17 20:16 Dose: 2.5 mls/hr Enteral Nutritional Formula (Vital Af 1.2 Dung Liquid) 1,000 mls @ 60 mls/hr GT .[id number] [facility] Last Admin: 12/18/17 23:52 Dose: 60 mls/hr Insulin Aspart (Novolog Flexpen (Bkc)) 0 units SC Q6 TRACIE PRN Reason: Protocol Last Admin: 12/19/17 05:01 Dose: 4 u Methylprednisolone (Solu-Medrol) 40 mg IV Q8 [facility] Last Admin: 12/19/17 05:01 Dose: 40 mg Ondansetron HCl (Zofran) 4 mg IV Q8H PRN PRN PRN Reason: Nausea Sodium Chloride () 5 - 30 ml IV UD PRN PRN Reason: SALINE FLUSH Last Admin: 12/19/17 04:54 Dose: 30 ml Medical Necessity - Tobacco Use Smoking Status: Never smoker Assessment/Plan Patient is a 72-year-old lady with multiple comorbidities admitted with progressive shortness of breath and assessment of acute hypoxemic and hypercarbic respiratory failure was made admitted to the intensive care unit where patient has since been managed on the vent. Patient infectious assay came back positive for RSV 1. Acute hypoxic rhypoxemic and hypercarbic respiratory failure secondary to asthma exacerbation due to RSV infection, patient admitted to the intensive care unit with consultation placed to the intensive care team patient has since been managed on the vent seen and discussed with Dr. Sevilla this morning plan is for patient to be weaned off the vent 2. Acute asthma exacerbation secondary to RSV, 3. Severe sepsis likely secondary to RSV infection, 4. Paroxysmal atrial fibrillation, rate controlled, on IV amiodarone, IV metoprolol 5 mg every 6 is on systemic anticoagulation with Eliquis which was held on admission 5. Diabetes mellitus type 2 uncontrolled in view of concomitant IV steroid use did continue with long-acting insulin as well as Accu-Cheks before meals and at bedtime with sliding scale coverage 6. CAD status post CABG, ischemic cardiomyopathy, EF 45% on last 2d-ECHO, 7. Hypertension, controlled 9. Hypothyroidism patient is on levothyroxine 10. DVT prophylaxis - Lovenox SC. Code Visit Inpatient E&M: [id number] [facility] L3
[2017-12-19] MEDS: Enoxaparin 30 MG/0.3 ML Syringe SC (10:39)
[2017-12-19] MEDS: Amiodarone 200 MG Tablet 100 MG PO (10:40)
[2017-12-19] MEDS: Carvedilol 6.25 MG Tablet PO ×2 (10:41→21:15)
[2017-12-19] MEDS: Famotidine 20 MG Tablet PO ×2 (10:46→21:15)
[2017-12-19 12:05] LABS: Bedside Glucose 243 mg/dL (70-110)
[2017-12-19] MEDS: Albuterol 2.5 MG/3 ML VIAL.NEB. INHALATION ×3 (14:35→16:22)
[2017-12-19 14:36] LABS: Pathologist Review Reviewed
[2017-12-19 18:26] LABS: Bedside Glucose 259 mg/dL (70-110)
--- NOTE | 2017-12-19 22:05 | CPS ---
Pt still complaining of bridge of nose being sore, even after Duoderm applied. Pt wears nasal mask at home. Offered pt a nasal mask and pt wanted to try it. Stated it felt better on her nose. Humidity also added to the bipap
[2017-12-19 23:41] LABS: Bedside Glucose 241 mg/dL (70-110)
[2017-12-20] VITALS (32 sets, daily range): BP systolic 92–150; BP diastolic 50–100; PULSE 52–78; RESP 12–29; TEMP 36.5–37.3; O2SAT 92–100
[2017-12-20] MEDS: Ipratropium/Albuterol Sulfate 3 ML AMPUL.NEB INHALATION ×6 (03:41→22:00)
[2017-12-20 04:17] LABS: Absolute Lymphocyte Count 0.52 X10^3/ul (0.83-4.51); Absolute Neutrophil Count 7.3 X10^3/uL (2.0-7.7); Basophil# 0.01 X10^3/uL; Basophil% 0.1 % (0-1); Hematocrit 41.8 % (37-47); Hemoglobin 13.8 g/dl (12.0-15.0); Lymphocyte # 0.52 X10^3/ul (4.0); Lymphocyte % 6.1 % (19-41); Mean Corpuscular Hgb 28.9 pg (27.0-32.0); Mean Corpuscular Volume 87.6 fL (81-99); Mean Platelet Vol. 10.4 fl (6.2-12.0); Monocyte# 0.63 X10^3/uL; Monocyte% 7.4 % (0-10); Neutrophil # 7.32 X10^3/uL (2.7-7.7); Platelet Count 209 K/mm3 (150-450); RBC Distribution Width CV 13.3 % (11.6-14.6); RBC Distribution Width SD 42.8 fl (35.1-43.9); Red Blood Count 4.77 M/mm3 (4.2-5.4); White Blood Count 8.5 K/mm3 (4.4-11.0)
[2017-12-20 04:19] LABS: Differential Indicated SCAN CRITERIA MET; POSITIVE COUNT NO; POSITIVE DIFFERENTIAL YES; POSITIVE MORPHOLOGY NO
[2017-12-20 04:32] LABS: Anion Gap 7 (5-15); BUN 29 mg/dL (7-18); BUN/Creat Ratio 43.3 RATIO (10-20); Calcium,Total 8.2 mg/dL (8.5-10.1); Chloride 107 mmol/L (98-107); Creatinine, Serum 0.67 mg/dL (0.55-1.02); EST Glomerular Filtration Rate 92 mL/min (>60); Est Glom Filt Rate - Afr Amer 111 mL/min (>60); Estimated Creatinine Clearance 39.63 ml/min; Glucose 234 mg/dL (74-106); Potassium 4.3 mmol/L (3.5-5.1); Sodium Level 143 mmol/L (136-145)
[2017-12-20 04:47] LABS: Differential Comment SCANNED; Platelet Estimate ADEQUATE (ADEQ); Reactive Lymphocyte RARE
[2017-12-20] MEDS: CHLORHEXIDINE GLUC 2% CLOTH 1 EACH TOWELETTE TOPICAL (05:05)
[2017-12-20 06:21] LABS: Bedside Glucose 239 mg/dL (70-110)
--- NOTE | 2017-12-20 06:55 | PCM.PN.INT ---
Subjective: The patient was seen and examined at the bedside this morning. Events from the last 24 hours have been reviewed. The patient is currently afebrile, hemodynamically stable and maintaining appropriate oxygen saturations on 3 L/min via nasal cannula. Several hours after extubation yesterday, the patient developed significant wheezing and tachypnea. She was subsequently placed on BiPAP therapy. Serial aerosol treatments were subsequently administered every hour over the course of 3 hours. The patient wore her BiPAP overnight but has been weaned to nasal cannula as of early this morning. She continues to experience a cough productive of creamy thick sputum. Objective: The patient's most recent lab work, culture data and imaging studies have all been personally reviewed. Blood and urine cultures have shown no growth to date. Respiratory viral panel was positive for RSV. Surface echocardiogram from March 2017 revealed normal LV size with mild segmental systolic dysfunction with an ejection fraction of 45%. Right ventricular systolic pressure was estimated to be 35 mmHg. The patient has known obstructive sleep apnea, for which it was recommended that she be placed on bilevel with a pressure setting of 15/9 cm of water with medication. The patient's most recent pulmonary function testing completed in July 2017 revealed evidence of a mild restrictive ventilatory defect with a reduction in diffusing capacity out of proportion to the degree of restriction. Sputum culture sent on December 19 revealed 3+ white blood cells and 2+ gram-positive cocci in clusters. MRSA screen was negative. General: Alert, Cooperative, No apparent distress, - - Resting comfortably in bedside recliner HEENT: Atraumatic, PERRLA, Normocephalic Oral: Moist Mucosa, No Gingival or Mucosal Lesions/ Ulcerations Neck: Supple, No Nodes, Trachea Midline Lungs: - - Diminished bilaterally with diffuse expiratory wheezing and frequent coughing. Cardiovascular: Regular rate, Regular Rhythm, Normal S1, Normal S2, No murmurs Abdomen: Bowel Sounds Present, Soft, Non Tender, Obese Extremities: No clubbing, No cyanosis, Edema Skin: - - No significant change from previous Musculoskeletal: No Tenderness to Palpation of Joints or Extremities, No Muscle Wasting Lymphatic: No Cervical, Supraclavicular, or Inguinal Adenopathy Neurological: Neuro grossly intact Psych/Mental Status: Normal Affect, Appropriate Vital Signs Temp Pulse Resp BP Pulse Ox 98.3 F 55 L 15 117/65 95 12/20/17 06:00 12/20/17 06:00 12/20/17 06:00 12/20/17 06:00 12/20/17 06:00 Oxygen Flow Rate (L/min) 3 Oxygen Delivery Method Nasal Cannula Weight: 216 lb 14.958 oz Body Mass Index (BMI) 39.6 Intake and Output for Last 24 Hours 12/18/17 12/19/17 12/20/17 23:59 23:59 23:59 Intake Total 2118 / 2118 583 / 583 Output Total 1000 / 1000 1075 / 1075 150 / 150 Balance 1118 / 1118 -492 / -492 -150 / -150 Labs (Last 48 Hours) 12/18/17 12/18/17 12/18/17 04:55 11:21 18:34 WBC RBC Hgb Hct MCV MCH MCHC RDW RDW Differential Plt Count MPV Immature Gran % (Auto) Neut % (Auto) Lymph % (Auto) [place] % (Auto) Eos % (Auto) Baso % (Auto) Absolute Neuts (auto) Absolute Lymphs (auto) Total Counted Not Reportable Differential Comment Reactive Lymphocytes Platelet Estimate Sodium Potassium Chloride Carbon Dioxide Anion Gap BUN Creatinine Estim Creat Clear Calc Est GFR (MDRD) Af Amer Est GFR (MDRD) Non-Af BUN/Creatinine Ratio Glucose Calcium POC Glucose 318 H 244 H 12/18/17 12/19/17 12/19/17 23:50 04:25 04:25 WBC 10.7 RBC 4.85 Hgb 14.0 Hct 42.4 MCV 87.4 MCH 28.9 MCHC 33.0 RDW 13.4 RDW Differential 42.7 Plt Count 206 MPV 10.4 Immature Gran % (Auto) 0.400 Neut % (Auto) 86.1 H Lymph % (Auto) 5.7 L [place] % (Auto) 7.7 Eos % (Auto) 0.0 Baso % (Auto) 0.1 Absolute Neuts (auto) 9.2 H Absolute Lymphs (auto) 0.61 L Total Counted Not Reportable Differential Comment Reactive Lymphocytes Platelet Estimate Sodium 139 Potassium 4.4 Chloride 105 Carbon Dioxide 26.0 Anion Gap 8 BUN 25 H Creatinine 0.70 Estim Creat Clear Calc 39.63 Est GFR (MDRD) Af Amer 106 Est GFR (MDRD) Non-Af 87 BUN/Creatinine Ratio 35.8 H Glucose 242 H Calcium 8.4 L POC Glucose 239 H 12/19/17 12/19/17 12/19/17 04:36 11:56 18:19 WBC RBC Hgb Hct MCV MCH MCHC RDW RDW Differential Plt Count MPV Immature Gran % (Auto) Neut % (Auto) Lymph % (Auto) [place] % (Auto) Eos % (Auto) Baso % (Auto) Absolute Neuts (auto) Absolute Lymphs (auto) Total Counted Differential Comment Reactive Lymphocytes Platelet Estimate Sodium Potassium Chloride Carbon Dioxide Anion Gap BUN Creatinine Estim Creat Clear Calc Est GFR (MDRD) Af Amer Est GFR (MDRD) Non-Af BUN/Creatinine Ratio Glucose Calcium POC Glucose 271 H 243 H 259 H 12/19/17 12/20/17 12/20/17 23:34 04:10 04:10 WBC 8.5 RBC 4.77 Hgb 13.8 Hct 41.8 MCV 87.6 MCH 28.9 MCHC 33.0 RDW 13.3 RDW Differential 42.8 Plt Count 209 MPV 10.4 Immature Gran % (Auto) 0.400 Neut % (Auto) 86.0 H Lymph % (Auto) 6.1 L [place] % (Auto) 7.4 Eos % (Auto) 0.0 Baso % (Auto) 0.1 Absolute Neuts (auto) 7.3 Absolute Lymphs (auto) 0.52 L Total Counted Not Reportable Differential Comment SCANNED Reactive Lymphocytes RARE Platelet Estimate ADEQUATE Sodium 143 Potassium 4.3 Chloride 107 Carbon Dioxide 29.0 Anion Gap 7 BUN 29 H Creatinine 0.67 Estim Creat Clear Calc 39.63 Est GFR (MDRD) Af Amer 111 Est GFR (MDRD) Non-Af 92 BUN/Creatinine Ratio 43.3 H Glucose 234 H Calcium 8.2 L POC Glucose 241 H 12/20/17 05:02 WBC RBC Hgb Hct MCV MCH MCHC RDW RDW Differential Plt Count MPV Immature Gran % (Auto) Neut % (Auto) Lymph % (Auto) [place] % (Auto) Eos % (Auto) Baso % (Auto) Absolute Neuts (auto) Absolute Lymphs (auto) Total Counted Differential Comment Reactive Lymphocytes Platelet Estimate Sodium Potassium Chloride Carbon Dioxide Anion Gap BUN Creatinine Estim Creat Clear Calc Est GFR (MDRD) Af Amer Est GFR (MDRD) Non-Af BUN/Creatinine Ratio Glucose Calcium POC Glucose 239 H Microbiology 12/19/17 07:45 Sputum, Induced/Lukens Gram Stain - Final Clinical Impression(s) from Imaging Studies Chest X-Ray 12/16/17 20:32 IMPRESSION: Cardiomegaly. No acute infiltrate. Electronically Signed: Eric Cole DO at 21:42 EDT , Service support , Chest X-Ray 12/16/17 20:42 IMPRESSION: The endotracheal tube terminates about 5.3 cm above the millie. A gastric tube extends into the upper abdomen. There is bibasilar atelectasis. Electronically Signed: Angie Jamison MD at 22:03 EDT Tel Direct: [phone], Service support , KUB X-Ray 12/16/17 20:55 IMPRESSION: The tip of the gastric tube is in the expected location of the antrum of the stomach. Electronically Signed: Angie Jamison MD at 22:06 EDT Tel Direct: [phone], Service support , Chest X-Ray 12/16/17 21:50 IMPRESSION: Right subclavian central line in place with the tip in the lower SVC. No pneumothorax. Endotracheal tube and NG tube remain in stable position. No acute infiltrate. Electronically Signed: Eric Cole DO at 22:51 EDT , Service support , Chest X-Ray 12/17/17 04:35 IMPRESSION: Moderate cardiomegaly. No failure. No pneumonia. Pleural reactive change in the left costophrenic angle Electronically Signed: Donny Bee at 8:37 EDT Tel , Service support , Chest X-Ray 12/18/17 22:14 IMPRESSION: Tubes and lines in stable position. Mild bibasilar atelectasis. at 2328 Reported and signed by: Dominique Calzada MD Electronically Signed: Dominique Calzada MD at 22:26 EDT Tel , Service support , Medical Necessity - Tobacco Use Smoking Status: Never smoker Assessment/Plan RECOMMENDATIONS: 1. Continue scheduled aerosol treatments. 2. Continue IV steroids yet today. If clinical improvement is again noted tomorrow, the patient can be transitioned to prednisone 40 mg daily by mouth. 3. Wean oxygen to maintain saturations at or above 90% 4. Encourage incentive spirometer use and mobilize patient as tolerated. 5. Continue BiPAP therapy 15/9 with naps and nightly. 6. Recommend continued monitoring in ICU setting at today. 7. Give IV vancomycin ?1 today. Restart ceftriaxone. IMPRESSIONS: 1. Acute hypoxemic and hypercarbic respiratory failure secondary to asthma exacerbation due to RSV infection/staph tracheobronchitis The patient has remained relatively stable following extubation yesterday. She did require initiation of BiPAP therapy shortly after extubation due to bronchospasm. She has since been weaned to nasal cannula. Plan to continue scheduled aerosol treatments and IV steroids yet today. Continue to encourage incentive spirometer use and mobilize patient as tolerated. Given that the patient's sputum culture is now growing staph aureus, IV vancomycin ?1 will be given today. Ceftriaxone will be resumed, pending speciation. 2. Severe sepsis secondary to RSV/staph tracheobronchitis Continue current supportive measures with scheduled aerosol treatments, antibiotics and IV steroids. 3. Paroxysmal atrial fibrillation/coronary artery disease status post CABG/chronic systolic heart failure Continue current medical therapy with amiodarone and beta-sara. 4. Diabetes type 2 Continue sliding-scale coverage with upward titration of Levemir today given hyperglycemia due to steroids. 5. Known obstructive sleep apnea Continue bilevel therapy at a pressure setting of 15/9 cm of water with humidification. 6. Hypothyroidism/hypertension/history of obstructive sleep apnea/migraine/advanced age Complicates care, management, recovery and prognosis. Continue home medications as indicated. This note was generated with [employer] software. It may contain incorrect words, spelling, and punctuation that were not noted in checking the note before signing. Code Visit Inpatient E&M: 59420 Subs Hosp L3
--- NOTE | 2017-12-20 07:01 | PN_ITS ---
Subjective: The patient was seen and examined at the bedside this morning. Events from the last 24 hours have been reviewed. The patient is currently afebrile, hemodynamically stable and maintaining appropriate oxygen saturations on 3 L/ min via nasal cannula. Several hours after extubation yesterday, the patient developed significant wheezing and tachypnea. She was subsequently placed on BiPAP therapy. Serial aerosol treatments were subsequently administered every hour over the course of 3 hours. The patient wore her BiPAP overnight but has been weaned to nasal cannula as of early this morning. She continues to experience a cough productive of creamy thick sputum. Objective: The patient's most recent lab work, culture data and imaging studies have all been personally reviewed. Blood and urine cultures have shown no growth to date. Respiratory viral panel was positive for RSV. Surface echocardiogram from March 2017 revealed normal LV size with mild segmental systolic dysfunction with an ejection fraction of 45%. Right ventricular systolic pressure was estimated to be 35 mmHg. The patient has known obstructive sleep apnea, for which it was recommended that she be placed on bilevel with a pressure setting of 15/9 cm of water with medication. The patient's most recent pulmonary function testing completed in July 2017 revealed evidence of a mild restrictive ventilatory defect with a reduction in diffusing capacity out of proportion to the degree of restriction. Sputum culture sent on December 19 revealed 3+ white blood cells and 2+ gram-positive cocci in clusters. MRSA screen was negative. General: Alert, Cooperative, No apparent distress, - - Resting comfortably in bedside recliner HEENT: Atraumatic, PERRLA, Normocephalic Oral: Moist Mucosa, No Gingival or Mucosal Lesions/ Ulcerations Neck: Supple, No Nodes, Trachea Midline Lungs: - - Diminished bilaterally with diffuse expiratory wheezing and frequent coughing. Cardiovascular: Regular rate, Regular Rhythm, Normal S1, Normal S2, No murmurs Abdomen: Bowel Sounds Present, Soft, Non Tender, Obese Extremities: No clubbing, No cyanosis, Edema Skin: - - No significant change from previous Musculoskeletal: No Tenderness to Palpation of Joints or Extremities, No Muscle Wasting Lymphatic: No Cervical, Supraclavicular, or Inguinal Adenopathy Neurological: Neuro grossly intact Psych/Mental Status: Normal Affect, Appropriate Vital Signs Temp Pulse Resp BP Pulse Ox 98.3 F 55 L 15 117/65 95 12/20/17 06:00 12/20/17 06:00 12/20/17 06:00 12/20/17 06:00 12/20/17 06:00 Oxygen Flow Rate (L/min) 3 Oxygen Delivery Method Nasal Cannula Weight: 216 lb 14.958 oz Body Mass Index (BMI) 39.6 Intake and Output for Last 24 Hours 12/18/17 12/19/17 12/20/17 23:59 23:59 23:59 Intake Total 2118 / 2118 583 / 583 Output Total 1000 / 1000 1075 / 1075 150 / 150 Balance 1118 / 1118 -492 / -492 -150 / -150 Labs (Last 48 Hours) 12/18/17 12/18/17 12/18/17 04:55 11:21 18:34 WBC RBC Hgb Hct MCV MCH MCHC RDW RDW Differential Plt Count MPV Immature Gran % (Auto) Neut % (Auto) Lymph % (Auto) [place] % (Auto) Eos % (Auto) Baso % (Auto) Absolute Neuts (auto) Absolute Lymphs (auto) Total Counted Not Reportable Differential Comment Reactive Lymphocytes Platelet Estimate Sodium Potassium Chloride Carbon Dioxide Anion Gap BUN Creatinine Estim Creat Clear Calc Est GFR (MDRD) Af Amer Est GFR (MDRD) Non-Af BUN/Creatinine Ratio Glucose Calcium POC Glucose 318 H 244 H 12/18/17 12/19/17 12/19/17 23:50 04:25 04:25 WBC 10.7 RBC 4.85 Hgb 14.0 Hct 42.4 MCV 87.4 MCH 28.9 MCHC 33.0 RDW 13.4 RDW Differential 42.7 Plt Count 206 MPV 10.4 Immature Gran % (Auto) 0.400 Neut % (Auto) 86.1 H Lymph % (Auto) 5.7 L [place] % (Auto) 7.7 Eos % (Auto) 0.0 Baso % (Auto) 0.1 Absolute Neuts (auto) 9.2 H Absolute Lymphs (auto) 0.61 L Total Counted Not Reportable Differential Comment Reactive Lymphocytes Platelet Estimate Sodium 139 Potassium 4.4 Chloride 105 Carbon Dioxide 26.0 Anion Gap 8 BUN 25 H Creatinine 0.70 Estim Creat Clear Calc 39.63 Est GFR (MDRD) Af Amer 106 Est GFR (MDRD) Non-Af 87 BUN/Creatinine Ratio 35.8 H Glucose 242 H Calcium 8.4 L POC Glucose 239 H 12/19/17 12/19/17 12/19/17 04:36 11:56 18:19 WBC RBC Hgb Hct MCV MCH MCHC RDW RDW Differential Plt Count MPV Immature Gran % (Auto) Neut % (Auto) Lymph % (Auto) [place] % (Auto) Eos % (Auto) Baso % (Auto) Absolute Neuts (auto) Absolute Lymphs (auto) Total Counted Differential Comment Reactive Lymphocytes Platelet Estimate Sodium Potassium Chloride Carbon Dioxide Anion Gap BUN Creatinine Estim Creat Clear Calc Est GFR (MDRD) Af Amer Est GFR (MDRD) Non-Af BUN/Creatinine Ratio Glucose Calcium POC Glucose 271 H 243 H 259 H 12/19/17 12/20/17 12/20/17 23:34 04:10 04:10 WBC 8.5 RBC 4.77 Hgb 13.8 Hct 41.8 MCV 87.6 MCH 28.9 MCHC 33.0 RDW 13.3 RDW Differential 42.8 Plt Count 209 MPV 10.4 Immature Gran % (Auto) 0.400 Neut % (Auto) 86.0 H Lymph % (Auto) 6.1 L [place] % (Auto) 7.4 Eos % (Auto) 0.0 Baso % (Auto) 0.1 Absolute Neuts (auto) 7.3 Absolute Lymphs (auto) 0.52 L Total Counted Not Reportable Differential Comment SCANNED Reactive Lymphocytes RARE Platelet Estimate ADEQUATE Sodium 143 Potassium 4.3 Chloride 107 Carbon Dioxide 29.0 Anion Gap 7 BUN 29 H Creatinine 0.67 Estim Creat Clear Calc 39.63 Est GFR (MDRD) Af Amer 111 Est GFR (MDRD) Non-Af 92 BUN/Creatinine Ratio 43.3 H Glucose 234 H Calcium 8.2 L POC Glucose 241 H 12/20/17 05:02 WBC RBC Hgb Hct MCV MCH MCHC RDW RDW Differential Plt Count MPV Immature Gran % (Auto) Neut % (Auto) Lymph % (Auto) [place] % (Auto) Eos % (Auto) Baso % (Auto) Absolute Neuts (auto) Absolute Lymphs (auto) Total Counted Differential Comment Reactive Lymphocytes Platelet Estimate Sodium Potassium Chloride Carbon Dioxide Anion Gap BUN Creatinine Estim Creat Clear Calc Est GFR (MDRD) Af Amer Est GFR (MDRD) Non-Af BUN/Creatinine Ratio Glucose Calcium POC Glucose 239 H Microbiology 12/19/17 07:45 Sputum, Induced/Lukens Gram Stain - Final Clinical Impression(s) from Imaging Studies Chest X-Ray 12/16/17 20:32 IMPRESSION: Cardiomegaly. No acute infiltrate. Electronically Signed: Eric Cole DO at 21:42 EDT , Service support , Chest X-Ray 12/16/17 20:42 IMPRESSION: The endotracheal tube terminates about 5.3 cm above the millie. A gastric tube extends into the upper abdomen. There is bibasilar atelectasis. Electronically Signed: Angie Jamison MD at 22:03 EDT Tel Direct: [phone], Service support , KUB X-Ray 12/16/17 20:55 IMPRESSION: The tip of the gastric tube is in the expected location of the antrum of the stomach. Electronically Signed: Angie Jamison MD at 22:06 EDT Tel Direct: [phone], Service support , Chest X-Ray 12/16/17 21:50 IMPRESSION: Right subclavian central line in place with the tip in the lower SVC. No pneumothorax. Endotracheal tube and NG tube remain in stable position. No acute infiltrate. Electronically Signed: Eric Cole DO at 22:51 EDT , Service support , Chest X-Ray 12/17/17 04:35 IMPRESSION: Moderate cardiomegaly. No failure. No pneumonia. Pleural reactive change in the left costophrenic angle Electronically Signed: Donny Bee at 8:37 EDT Tel , Service support , Chest X-Ray 12/18/17 22:14 IMPRESSION: Tubes and lines in stable position. Mild bibasilar atelectasis. at 2328 Reported and signed by: Dominique Calzada MD Electronically Signed: Dominique Calzada MD at 22:26 EDT Tel , Service support , Medical Necessity - Tobacco Use Smoking Status: Never smoker Assessment/Plan RECOMMENDATIONS: 1. Continue scheduled aerosol treatments. 2. Continue IV steroids yet today. If clinical improvement is again noted tomorrow, the patient can be transitioned to prednisone 40 mg daily by mouth. 3. Wean oxygen to maintain saturations at or above 90% 4. Encourage incentive spirometer use and mobilize patient as tolerated. 5. Continue BiPAP therapy 15/9 with naps and nightly. 6. Recommend continued monitoring in ICU setting at today. 7. Give IV vancomycin ?1 today. Restart ceftriaxone. IMPRESSIONS: 1. Acute hypoxemic and hypercarbic respiratory failure secondary to asthma exacerbation due to RSV infection/staph tracheobronchitis The patient has remained relatively stable following extubation yesterday. She did require initiation of BiPAP therapy shortly after extubation due to bronchospasm. She has since been weaned to nasal cannula. Plan to continue scheduled aerosol treatments and IV steroids yet today. Continue to encourage incentive spirometer use and mobilize patient as tolerated. Given that the patient's sputum culture is now growing staph aureus, IV vancomycin ?1 will be given today. Ceftriaxone will be resumed, pending speciation. 2. Severe sepsis secondary to RSV/staph tracheobronchitis Continue current supportive measures with scheduled aerosol treatments, antibiotics and IV steroids. 3. Paroxysmal atrial fibrillation/coronary artery disease status post CABG/ chronic systolic heart failure Continue current medical therapy with amiodarone and beta-sara. 4. Diabetes type 2 Continue sliding-scale coverage with upward titration of Levemir today given hyperglycemia due to steroids. 5. Known obstructive sleep apnea Continue bilevel therapy at a pressure setting of 15/9 cm of water with humidification. 6. Hypothyroidism/hypertension/history of obstructive sleep apnea/migraine/ advanced age Complicates care, management, recovery and prognosis. Continue home medications as indicated. This note was generated with [employer] software. It may contain incorrect words, spelling, and punctuation that were not noted in checking the note before signing. Code Visit Inpatient E&M: 68150 Subs Hosp L3
--- NOTE | 2017-12-20 07:10 | PN_ITS ---
Subjective: Patient was weaned off the vent on 11/18/2017 had to be placed on BiPAP as a result of respiratory distress Objective: GENERAL: Has some dyspnea at rest HEENT: No distention of neck veins NECK; supple, normal thyroid, CHEST: Diminished bilateral wheezing HEART: Regular S1 S2, no audible murmurs ABDOMEN: soft, normoactive bowel sounds, RECTAL: deferred EXTREMITIES: No edema, no clubbing, no cyanosis. 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 SKIN: No Rash Vitals/I&O's: Vital Signs Temp Pulse Resp BP Pulse Ox 98.3 F 55 L 15 117/65 95 12/20/17 06:00 12/20/17 06:00 12/20/17 06:00 12/20/17 06:00 12/20/17 06:00 Oxygen Flow Rate (L/min) 3 Oxygen Delivery Method Nasal Cannula Weight: 98.4 kg Body Mass Index (BMI) 39.6 Intake and Output for Last 24 Hours 12/18/17 12/19/17 12/20/17 23:59 23:59 23:59 Intake Total 2118 / 2118 583 / 583 Output Total 1000 / 1000 1075 / 1075 150 / 150 Balance 1118 / 1118 -492 / -492 -150 / -150 Microbiology Past 72 Hours 12/19/17 07:45 Sputum, Induced/Lukens Gram Stain - Final 12/16/17 23:30 Mucosa - Nasopharyngeal Respiratory Panel (PCR) - Final RSV B Laboratory Results 12/19/17 11:56: POC Glucose 243 H 12/19/17 18:19: POC Glucose 259 H 12/19/17 23:34: POC Glucose 241 H 12/20/17 04:10: WBC 8.5, RBC 4.77, Hgb 13.8, Hct 41.8, MCV 87.6, MCH 28.9, MCHC 33.0, RDW 13.3, RDW Differential 42.8, Plt Count 209, MPV 10.4, Immature Gran % (Auto) 0.400, Neut % (Auto) 86.0 H, Lymph % (Auto) 6.1 L, [place] % (Auto) 7.4, Eos % (Auto) 0.0, Baso % (Auto) 0.1, Absolute Neuts (auto) 7.3, Absolute Lymphs (auto) 0.52 L, Total Counted Not Reportable, Differential Comment SCANNED, Reactive Lymphocytes RARE, Platelet Estimate ADEQUATE 12/20/17 04:10: Sodium 143, Potassium 4.3, Chloride 107, Carbon Dioxide 29.0, Anion Gap 7, BUN 29 H, Creatinine 0.67, Estim Creat Clear Calc 39.63, Est GFR ( MDRD) Af Amer 111, Est GFR (MDRD) Non-Af 92, BUN/Creatinine Ratio 43.3 H, Glucose 234 H, Calcium 8.2 L 12/20/17 05:02: POC Glucose 239 H Current Medications Acetaminophen (Tylenol) 650 mg PO Q4H PRN PRN PRN Reason: TEMP>101 Albuterol/Ipratropium (Duoneb) 3 ml INHALATION Q4HWA.RT COUNTS INCLUDE 234 BEDS AT THE [facility] Last Admin: 12/20/17 03:41 Dose: 3 ml Amiodarone HCl (Cordarone) 100 mg PO DAILY COUNTS INCLUDE 234 BEDS AT THE [facility] Last Admin: 12/19/17 10:40 Dose: 100 mg Carvedilol (Coreg) 6.25 mg PO BID COUNTS INCLUDE 234 BEDS AT THE [facility] Last Admin: 12/19/17 21:15 Dose: 6.25 mg Chlorhexidine Gluconate () 1 each TOPICAL DAILY COUNTS INCLUDE 234 BEDS AT THE [facility] Last Admin: 12/20/17 05:05 Dose: 1 each Dextrose (D50w Syringe) 0 gm IV X1 PRN; Protocol PRN Reason: Hypoglycemia Enoxaparin Sodium (Lovenox) 30 mg SC DAILY@1000 COUNTS INCLUDE 234 BEDS AT THE [facility] Last Admin: 12/19/17 10:39 Dose: 30 mg Famotidine (Pepcid) 20 mg PO BID COUNTS INCLUDE 234 BEDS AT THE [facility] Last Admin: 12/19/17 21:15 Dose: 20 mg Glucagon () 1 mg IM .X1 PRN PRN Reason: Hypoglycemia Sodium Chloride () 250 mls @ 15 mls/hr IV .[id number] PRN PRN Reason: SALINE FLUSH Insulin Aspart (Novolog Flexpen ([facility])) 0 units SC Q6 TRACIE PRN Reason: Protocol Last Admin: 12/20/17 05:03 Dose: 3 u Insulin Detemir (Levemir ([facility])) 10 units SC DAILY COUNTS INCLUDE 234 BEDS AT THE [facility] Last Admin: 12/19/17 10:41 Dose: 10 u Methylprednisolone (Solu-Medrol) 40 mg IV Q8 COUNTS INCLUDE 234 BEDS AT THE [facility] Last Admin: 12/20/17 05:03 Dose: 40 mg Ondansetron HCl (Zofran) 4 mg IV Q8H PRN PRN PRN Reason: Nausea Sodium Chloride () 5 - 30 ml IV UD PRN PRN Reason: SALINE FLUSH Last Admin: 12/19/17 21:15 Dose: 10 ml Medical Necessity - Tobacco Use Smoking Status: Never smoker Assessment/Plan Patient is a 72-year-old lady with multiple comorbidities admitted with progressive shortness of breath and assessment of acute hypoxemic and hypercarbic respiratory failure was made admitted to the intensive care unit where patient has since been managed on the vent. Patient infectious assay came back positive for RSV 1. Acute hypoxic hypoxemic and hypercarbic respiratory failure secondary to asthma exacerbation due to RSV infection, patient admitted to the intensive care unit with consultation placed to the intensive care team patient has since been managed on the vent seen and discussed with Dr. Sevilla this morning plan is for patient to be weaned off the vent. Patient was weaned off the vent on 2017 2. Acute asthma exacerbation secondary to RSV, 3. Severe sepsis likely secondary to RSV infection, 4. Paroxysmal atrial fibrillation, rate controlled, on IV amiodarone, IV metoprolol 5 mg every 6 is on systemic anticoagulation with Eliquis which was held on admission 5. Diabetes mellitus type 2 uncontrolled in view of concomitant IV steroid use did continue with long-acting insulin as well as Accu-Cheks before meals and at bedtime with sliding scale coverage 6. CAD status post CABG, ischemic cardiomyopathy, EF 45% on last 2d-ECHO, 7. Hypertension, controlled 9. Hypothyroidism patient is on levothyroxine 10. The patient states (Hypogammaglobulinemia) is followed by [facility] as outpatient 11. DVT prophylaxis - Lovenox SC. Code Visit Inpatient E&M: [id number] [facility] L3
--- NOTE | 2017-12-20 09:29 | CASEMGMT ---
Interdisciplinary rounds: pt is on 3L NC, per PT recommendation is SNF. SW referral made. asked re: Pulmonary Rehab. Dr. Sevilla will evaluate after discharge in office. May require oxygen on dc- recommend oxygen evaluation prior to dc.Guillermina FOREMANN RN ACM
[2017-12-20] MEDS: Carvedilol 6.25 MG Tablet PO ×2 (10:03→21:37)
[2017-12-20] MEDS: Famotidine 20 MG Tablet PO ×2 (10:03→21:36)
[2017-12-20] MEDS: Amiodarone 200 MG Tablet 100 MG PO (10:04)
[2017-12-20] MEDS: 0.9% NaCl Peripheral Flush Adult/Peds IV ×2 (10:04→13:51)
[2017-12-20] MEDS: Enoxaparin 30 MG/0.3 ML Syringe SC (10:04)
[2017-12-20] MEDS: Cefazolin 2 GM in 0.9% Normal Saline 100 ML IV ×2 (10:40→21:37)
[2017-12-20] MEDS: 0.9% NaCl IVPB Med Flush (250 mL) 15 ML IV (12:17)
[2017-12-20 12:25] LABS: Bedside Glucose 306 mg/dL (70-110)
--- NOTE | 2017-12-20 13:19 | CASEMGMT ---
Therapy is recommending patient go somewhere for rehab at d/c. DARIN met with patient and her daughter, introduced self and role at [facility]. DARIN told patient what therapy is recommending. She was hesitant at first, but when DARIN mentioned [facility] she said she would go there only. DARIN spoke with Jerilyn in TCU and they will have a bed for patient. DARIN did let patient know this. Plan: [facility] when ready. Lorena CARIAS MSW
[2017-12-20] MEDS: Tetracaine/Benzocaine/Butamben 1 APPLIC TOPICAL (15:47)
[2017-12-20 17:16] LABS: Bedside Glucose 259 mg/dL (70-110)
[2017-12-20 21:51] LABS: Bedside Glucose 275 mg/dL (70-110)
[2017-12-21] VITALS (23 sets, daily range): BP systolic 115–174; BP diastolic 51–79; PULSE 50–74; RESP 12–22; TEMP 36.6–36.9; O2SAT 91–98
--- NOTE | 2017-12-21 02:27 | CPS ---
PT UNABLE TO TOLERATE BIPAP, PLACED ON 3 LPM NASAL CANNULA BY NURSING.
[2017-12-21] MEDS: Ipratropium/Albuterol Sulfate 3 ML AMPUL.NEB INHALATION ×4 (03:45→18:57)
--- NOTE | 2017-12-21 04:28 | CPS ---
CHANGED BIPAP SETTINGS TO PTS HOME SETTINGS AND INCREASED I-TIME TO 2.0
[2017-12-21] MEDS: Levothyroxine 25 MCG TABLET PO (05:56)
[2017-12-21] MEDS: Cefazolin 2 GM in 0.9% Normal Saline 100 ML IV (05:56)
[2017-12-21] MEDS: 0.9% NaCl Peripheral Flush Adult/Peds IV (05:56)
--- NOTE | 2017-12-21 06:35 | PN_ITS ---
Subjective: The patient was seen and examined at the bedside this morning. Events from the last 24 hours have been reviewed. The patient is currently afebrile, hemodynamically stable and maintaining appropriate oxygen saturations on room air. The patient continues to improve clinically from a respiratory perspective. The patient was restarted on antibiotics yesterday after sputum culture speciated with staph aureus. The patient was tolerant of BiPAP therapy overnight. Objective: The patient's most recent lab work, culture data and imaging studies have all been personally reviewed. Blood and urine cultures have shown no growth to date. Respiratory viral panel was positive for RSV. Surface echocardiogram from March 2017 revealed normal LV size with mild segmental systolic dysfunction with an ejection fraction of 45%. Right ventricular systolic pressure was estimated to be 35 mmHg. The patient has known obstructive sleep apnea, for which it was recommended that she be placed on bilevel with a pressure setting of 15/9 cm of water with medication. The patient's most recent pulmonary function testing completed in July 2017 revealed evidence of a mild restrictive ventilatory defect with a reduction in diffusing capacity out of proportion to the degree of restriction. Sputum culture was positive for staph aureus. MRSA screen was negative. General: Alert, Cooperative, No apparent distress HEENT: Atraumatic, PERRLA, Normocephalic Oral: No Gingival or Mucosal Lesions/ Ulcerations Neck: Supple, No Nodes, Trachea Midline Lungs: Diminished, - - Bilateral wheezing, although much improved from yesterday Cardiovascular: Regular rate, Regular Rhythm, Normal S1, Normal S2, No murmurs Abdomen: Bowel Sounds Present, Soft, Non Tender, Obese Extremities: No clubbing, No cyanosis, No edema Skin: - - No significant change from previous Musculoskeletal: No Tenderness to Palpation of Joints or Extremities Lymphatic: No Cervical, Supraclavicular, or Inguinal Adenopathy Neurological: Neuro grossly intact Psych/Mental Status: Normal Affect, Appropriate Vital Signs Temp Pulse Resp BP Pulse Ox 97.8 F 69 22 H 145/75 H 92 12/21/17 04:00 12/21/17 06:00 12/21/17 06:00 12/21/17 06:00 12/21/17 06:00 Oxygen Flow Rate (L/min) 3 Oxygen Delivery Method Room Air Weight: 218 lb 0.595 oz Body Mass Index (BMI) 39.6 Intake and Output for Last 24 Hours 0412/20/17 12/21/17 23:59 23:59 23:59 Intake Total 583 / 583 1442 / 1442 107.7 / 107.7 Output Total 1075 / 1075 750 / 750 300 / 300 Balance -492 / -492 692 / 692 -192.3 / -192.3 Labs (Last 48 Hours) 12/19/17 12/19/17 12/19/17 11:56 18:19 23:34 WBC RBC Hgb Hct MCV MCH MCHC RDW RDW Differential Plt Count MPV Immature Gran % (Auto) Neut % (Auto) Lymph % (Auto) [place] % (Auto) Eos % (Auto) Baso % (Auto) Absolute Neuts (auto) Absolute Lymphs (auto) Total Counted Differential Comment Reactive Lymphocytes Platelet Estimate Sodium Potassium Chloride Carbon Dioxide Anion Gap BUN Creatinine Estim Creat Clear Calc Est GFR (MDRD) Af Amer Est GFR (MDRD) Non-Af BUN/Creatinine Ratio Glucose Calcium POC Glucose 243 H 259 H 241 H 12/20/17 12/20/17 12/20/17 04:10 04:10 05:02 WBC 8.5 RBC 4.77 Hgb 13.8 Hct 41.8 MCV 87.6 MCH 28.9 MCHC 33.0 RDW 13.3 RDW Differential 42.8 Plt Count 209 MPV 10.4 Immature Gran % (Auto) 0.400 Neut % (Auto) 86.0 H Lymph % (Auto) 6.1 L [place] % (Auto) 7.4 Eos % (Auto) 0.0 Baso % (Auto) 0.1 Absolute Neuts (auto) 7.3 Absolute Lymphs (auto) 0.52 L Total Counted Not Reportable Differential Comment SCANNED Reactive Lymphocytes RARE Platelet Estimate ADEQUATE Sodium 143 Potassium 4.3 Chloride 107 Carbon Dioxide 29.0 Anion Gap 7 BUN 29 H Creatinine 0.67 Estim Creat Clear Calc 39.63 Est GFR (MDRD) Af Amer 111 Est GFR (MDRD) Non-Af 92 BUN/Creatinine Ratio 43.3 H Glucose 234 H Calcium 8.2 L POC Glucose 239 H 12/20/17 12/20/17 12/20/17 12:13 17:04 21:38 WBC RBC Hgb Hct MCV MCH MCHC RDW RDW Differential Plt Count MPV Immature Gran % (Auto) Neut % (Auto) Lymph % (Auto) [place] % (Auto) Eos % (Auto) Baso % (Auto) Absolute Neuts (auto) Absolute Lymphs (auto) Total Counted Differential Comment Reactive Lymphocytes Platelet Estimate Sodium Potassium Chloride Carbon Dioxide Anion Gap BUN Creatinine Estim Creat Clear Calc Est GFR (MDRD) Af Amer Est GFR (MDRD) Non-Af BUN/Creatinine Ratio Glucose Calcium POC Glucose 306 H 259 H 275 H Microbiology 12/19/17 07:45 Sputum, Induced/Lukens Gram Stain - Final 12/19/17 07:45 Sputum, Induced/Lukens Respiratory Culture - Preliminary Staphylococcus aureus Clinical Impression(s) from Imaging Studies Chest X-Ray 12/16/17 20:32 IMPRESSION: Cardiomegaly. No acute infiltrate. Electronically Signed: Eric Cole DO at 21:42 EDT , Service support , Chest X-Ray 12/16/17 20:42 IMPRESSION: The endotracheal tube terminates about 5.3 cm above the millie. A gastric tube extends into the upper abdomen. There is bibasilar atelectasis. Electronically Signed: Angie Jamison MD at 22:03 EDT Tel Direct: [phone], Service support , KUB X-Ray 12/16/17 20:55 IMPRESSION: The tip of the gastric tube is in the expected location of the antrum of the stomach. Electronically Signed: Angie Jamison MD at 22:06 EDT Tel Direct: [phone], Service support , Chest X-Ray 12/16/17 21:50 IMPRESSION: Right subclavian central line in place with the tip in the lower SVC. No pneumothorax. Endotracheal tube and NG tube remain in stable position. No acute infiltrate. Electronically Signed: Eric Cole DO at 22:51 EDT , Service support , Chest X-Ray 12/17/17 04:35 IMPRESSION: Moderate cardiomegaly. No failure. No pneumonia. Pleural reactive change in the left costophrenic angle Electronically Signed: Donny Bee, at 8:37 EDT Tel , Service support , Chest X-Ray 12/18/17 22:14 IMPRESSION: Tubes and lines in stable position. Mild bibasilar atelectasis. at 2328 Reported and signed by: Dominique Calzada MD Electronically Signed: Dominique Calzada MD at 22:26 EDT Tel , Service support , Medical Necessity - Tobacco Use Smoking Status: Never smoker Assessment/Plan Active and Suspected Problems (Last Updated 12/16/17 @ 22:38 by Melony Gonzalez MD) RSV (respiratory syncytial virus infection) (Acute) RECOMMENDATIONS: 1. Continue scheduled aerosol treatments. 2. Continue antibiotics. 3. Transition from IV steroids to prednisone 40 mg daily by mouth today. 4. Encourage incentive spirometer use and mobilize patient as tolerated. 5. Continue BiPAP therapy 15 with naps and nightly. 6. Continue Lovenox for prophylaxis. IMPRESSIONS: 1. Acute hypoxemic and hypercarbic respiratory failure secondary to asthma exacerbation due to RSV infection/staph tracheobronchitis The patient has remained relatively stable following extubation. She did require initiation of BiPAP therapy shortly after extubation due to bronchospasm. She has since been weaned to room air. Plan to continue scheduled aerosol treatments accordingly. The patient's IV steroids will be transitioned to prednisone beginning today. Continue to encourage incentive spirometer use and mobilize patient as tolerated. Given that the patient's sputum culture is now growing staph aureus, antibiotics were resumed yesterday. 2. Severe sepsis secondary to RSV/staph tracheobronchitis Continue current supportive measures with scheduled aerosol treatments, antibiotics and steroids. 3. Paroxysmal atrial fibrillation/coronary artery disease status post CABG/ chronic systolic heart failure Continue current medical therapy with amiodarone and beta-sara. 4. Diabetes type 2 Continue sliding-scale coverage and Levemir as ordered. 5. Known obstructive sleep apnea Continue bilevel therapy at a pressure setting of 15/9 cm of water with humidification. 6. Hypothyroidism/hypertension/history of obstructive sleep apnea/migraine/ advanced age Complicates care, management, recovery and prognosis. Continue home medications as indicated. This note was generated with [employer] dictation software. It may contain incorrect words, spelling, and punctuation that were not noted in checking the note before signing. DISPOSITION: The patient is medically stable for transfer out of the intensive care unit. Code Visit Inpatient E&M: [id number] [facility] L3
[2017-12-21 06:51] LABS: Bedside Glucose 209 mg/dL (70-110)
--- NOTE | 2017-12-21 07:33 | PCM.PN.HOSP ---
Subjective: Patient seen, cultures came back positive for staph aureus oxacillin sensitive antibiotic regimen subsequently consulted consultation was placed infectious disease in view of patient history of hypogammaglobinemia Objective: GENERAL: Has some dyspnea at rest HEENT: No distention of neck veins NECK; supple, normal thyroid, CHEST: Diminished bilateral wheezing HEART: Regular S1 S2, no audible murmurs ABDOMEN: soft, normoactive bowel sounds, RECTAL: deferred EXTREMITIES: No edema, no clubbing, no cyanosis. 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 SKIN: No Rash Vitals/I&O's: Vital Signs Temp Pulse Resp BP Pulse Ox 97.8 F 74 22 H 135/67 H 97 12/21/17 04:00 12/21/17 07:13 12/21/17 07:13 12/21/17 07:00 12/21/17 07:13 Oxygen Flow Rate (L/min) 3 Oxygen Delivery Method Room Air Weight: 98.9 kg Body Mass Index (BMI) 39.6 Intake and Output for Last 24 Hours 12/19/17 12/20/17 12/21/17 23:59 23:59 23:59 Intake Total 583 / 583 1442 / 1442 107.7 / 107.7 Output Total 1075 / 1075 750 / 750 300 / 300 Balance -492 / -492 692 / 692 -192.3 / -192.3 Microbiology Past 72 Hours 12/19/17 07:45 Sputum, Induced/Lukens Gram Stain - Final 12/19/17 07:45 Sputum, Induced/Lukens Respiratory Culture - Final Staphylococcus aureus Laboratory Results 12/20/17 12:13: POC Glucose 306 H 12/20/17 17:04: POC Glucose 259 H 12/20/17 21:38: POC Glucose 275 H 12/21/17 06:43: POC Glucose 209 H Current Medications Acetaminophen (Tylenol) 650 mg PO Q4H PRN PRN PRN Reason: TEMP>101 Albuterol/Ipratropium (Duoneb) 3 ml INHALATION Q4HWA.RT [facility] Last Admin: 12/21/17 07:13 Dose: 3 ml Amiodarone HCl (Cordarone) 100 mg PO DAILY [facility] Last Admin: 12/20/17 10:04 Dose: 100 mg Benzocaine/Butamben/Tetracaine HCl (Cetacaine ([facility])) 1 applic TOPICAL Q2H PRN PRN; Protocol PRN Reason: SORE THROAT Last Admin: 12/20/17 15:47 Dose: 1 applic Carvedilol (Coreg) 6.25 mg PO BID [facility] Last Admin: 12/20/17 21:37 Dose: 6.25 mg Chlorhexidine Gluconate () 1 each TOPICAL DAILY [facility] Last Admin: 12/20/17 05:05 Dose: 1 each Dextrose (D50w Syringe) 0 gm IV X1 PRN; Protocol PRN Reason: Hypoglycemia Enoxaparin Sodium (Lovenox) 30 mg SC DAILY@1000 [facility] Last Admin: 12/20/17 10:04 Dose: 30 mg Famotidine (Pepcid) 20 mg PO BID [facility] Last Admin: 12/20/17 21:36 Dose: 20 mg Glucagon () 1 mg IM .X1 PRN PRN Reason: Hypoglycemia Sodium Chloride () 250 mls @ 15 mls/hr IV .[id number] PRN PRN Reason: SALINE FLUSH Last Admin: 12/20/17 12:17 Dose: 15 mls/hr Cefazolin Sodium 2 gm/ Sodium (Chloride) 110 mls @ 150 mls/hr IV Q8 [facility] Last Admin: 12/21/17 05:56 Dose: 150 mls/hr Insulin Aspart (Novolog Flexpen ([facility])) 0 units SC ACHS [facility] PRN Reason: Protocol Last Admin: 12/21/17 06:44 Dose: 2 u Insulin Detemir (Levemir ([facility])) 10 units SC 1100,2200 [facility] Last Admin: 12/20/17 21:40 Dose: 10 u Levothyroxine Sodium (Synthroid) 25 mcg PO DAILY@0600 [facility] Last Admin: 12/21/17 05:56 Dose: 25 mcg Ondansetron HCl (Zofran) 4 mg IV Q8H PRN PRN PRN Reason: Nausea Prednisone () 40 mg PO DAILY@0800 [facility] Sodium Chloride () 5 - 30 ml IV UD PRN PRN Reason: SALINE FLUSH Last Admin: 12/21/17 05:56 Dose: 30 ml Medical Necessity - Tobacco Use Smoking Status: Never smoker Assessment/Plan Patient is a 72-year-old lady with multiple comorbidities admitted with progressive shortness of breath and assessment of acute hypoxemic and hypercarbic respiratory failure was made admitted to the intensive care unit where patient has since been managed on the vent. Patient infectious assay came back positive for RSV 1. Acute hypoxic hypoxemic and hypercarbic respiratory failure secondary to asthma exacerbation due to RSV infection complicated by possible staph pneumonia, patient admitted to the intensive care unit with consultation placed to the intensive care team patient has since been managed on the vent seen and discussed with Dr. Sevilla this morning plan is for patient to be weaned off the vent. Patient was weaned off the vent on 11/18/2017. Patient seen, cultures came back positive for staph aureus oxacillin sensitive antibiotic regimen subsequently consulted consultation was placed infectious disease in view of patient history of hypogammaglobinemia 2. Acute asthma exacerbation secondary to RSV, 3. Severe sepsis likely secondary to RSV infection, 4. Paroxysmal atrial fibrillation, rate controlled, on IV amiodarone, IV metoprolol 5 mg every 6 is on systemic anticoagulation with Eliquis which was held on admission 5. Diabetes mellitus type 2 uncontrolled in view of concomitant IV steroid use did continue with long-acting insulin as well as Accu-Cheks before meals and at bedtime with sliding scale coverage 6. CAD status post CABG, ischemic cardiomyopathy, EF 45% on last 2d-ECHO, 7. Hypertension, controlled 9. Hypothyroidism patient is on levothyroxine 10. The patient states (Hypogammaglobulinemia) is followed by [employer] [facility] as outpatient 11. DVT prophylaxis - Lovenox SC. Code Visit Inpatient E&M: [id number] [facility] L3
[2017-12-21] MEDS: Enoxaparin 30 MG/0.3 ML Syringe SC (10:30)
[2017-12-21] MEDS: Amiodarone 200 MG Tablet 100 MG PO (10:30)
[2017-12-21] MEDS: Famotidine 20 MG Tablet PO ×2 (10:30→22:04)
[2017-12-21] MEDS: Carvedilol 6.25 MG Tablet PO ×2 (10:30→22:03)
[2017-12-21] MEDS: Cefadroxil 500 MG CAPSULE 1000 MG PO ×2 (10:30→22:04)
--- NOTE | 2017-12-21 10:49 | CON.PCM_ITS ---
Problem List (1) RSV (respiratory syncytial virus infection) Status: Acute Reason for Consult: pneumonia Consulted by: Dr. Marroquin History of Present Illness: The patient is a 72 year old F with h/o immunodeficiency, follows with immunology and gets routine pneumococcal vaccination but no other treatment, who presented 12/16 with 3 days of progressive cough, wheeze, chills, aches, congestion, malaise. Sx started suddenly. Had just been at family gathering and someone had a cold there. Sx started, saw pulm office, called back 1-2 days later and got started on azithro. Sx continued to worsen, came to ED. Fever up to 102.6. (+) RSV B, had bronchospasm and did require intubation. Now off vent, fever resolved, having some yellow sputum. Sputum cx with MSSA, so started on cefazolin. Did get dose of vanc 12/20 as well. Breathing slowly improving. Full ROS performed and neg except as noted above. 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) HTN (hypertension) (Chronic) Diabetes mellitus (Chronic) HLD (hyperlipidemia) (Chronic) DM type 2 (diabetes mellitus, type 2) (Chronic) Hypogammaglobulinemia (Chronic) Morbid obesity (Chronic) Migraines (Chronic) BARTOLO (obstructive sleep apnea) (Chronic) CAD (coronary artery disease) (Chronic) Allergies/Adverse Reactions: Allergies Beta-Blockers (Beta-Adrenergic Bloc Allergy (Verified 12/16/17 20:27) Shortness of breath doxycycline Allergy (Verified 12/16/17 20:27) Hives Penicillins Allergy (Verified 12/16/17 20:27) Rash red dye Allergy (Verified 12/16/17 20:27) Unknown Sulfa (Sulfonamide Antibiotics) Allergy (Verified 12/16/17 20:27) Rash theophylline Allergy (Verified 12/16/17 20:27) Rash codeine Adverse Reaction (Verified 12/16/17 20:27) Nausea Home Medications: Ambulatory Orders Medication Instructions Recorded Budesonide/Formoterol 160/4.5 2 puff INHALATION BID PRN 11/09/15 [Symbicort 160/4.5 Mcg Inhaler (SP)] Montelukast [Singulair] 10 mg PO DAILY 11/09/15 Acetaminophen [Tylenol Tablet] 650 mg PO Q8H PRN PRN #0 tab 12/04/15 Furosemide [Lasix] 20 mg PO DAILY #30 tab 12/04/15 Acetaminophen/Butalbital/Caffe 1 tab PO BID PRN PRN 03/26/17 [Fioricet] Ezetimibe [Zetia] 10 mg PO DAILY 03/26/17 Potassium Chloride [K-Dur] 20 meq PO TID 03/26/17 Carvedilol [Coreg (Beta Daniel)] 6.25 mg PO BID #60 tab 03/28/17 apixaban 5 mg tablet 5 mg PO BID #180 tab 08/19/17 amiodarone 200 mg tablet 100 mg PO BID tab 08/22/17 benzonatate 100 mg capsule 100 mg PO Q6H 10/19/17 levalbuterol 0.63 mg/3 mL solution 0.63 mg INHALATION Q4H PRN #120 10/28/17 for nebulization vial prednisone 20 mg tablet 60 mg PO QDAY #15 tab 12/13/17 azithromycin 250 mg tablet 250 mg PO QDAY #6 tab 12/15/17 benzonatate 100 mg capsule 100 mg PO TID PRN #30 cap 12/15/17 Albuterol IH (ProAir) [Proair Hfa 2 puff INHALATION Q4H PRN PRN 12/17/17 (SP)Vent Pts] Levothyroxine [Synthroid] 25 mcg PO DAILY 12/17/17 - Social History Tobacco Use: non-smoker Vital Signs Temp Pulse Resp BP Pulse Ox 98.3 F 68 20 H 136/68 H 94 12/21/17 08:00 12/21/17 08:00 12/21/17 08:00 12/21/17 08:00 12/21/17 08:00 Oxygen Flow Rate (L/min) 3 Oxygen Delivery Method Room Air Weight: 98.9 kg Body Mass Index (BMI) 39.6 Microbiology Past 72 Hours 04/09/18 07:45 Gram Stain - Final Sputum, Induced/Lukens Respiratory Culture - Final Staphylococcus aureus - Other Studies Radiology: [] reviewed Other Studies: [] Route of nutrition/ use of supplements: [] Nutritional Intake: [] IV Site: [] Chandra Catheter: [] - Physical Exam General: Alert, Oriented x3, Cooperative, No apparent distress HEENT: Atraumatic, PERRLA, EOMI Neck: Supple, No Nodes Lungs: Rhonchi, Wheezes Cardiovascular: Regular rate, Regular Rhythm, No murmurs Abdomen: Bowel Sounds Present, Soft, Non Tender, Non-Distended Extremities: Edema Skin: No rashes IV Site: Central Line, without redness Musculoskeletal: No Tenderness to Palpation of Joints or Extremities Neurological: Cranial nerves II-XII grossly intact - Assessment/Plan Antibiotics: [] Assessment/Plan: [] RSV B infection now with MSSA in sputum - fever improved, out of icu and off vent. Breathing slowly improving. Cont cefazolin. 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 Follows with immunology, last infection was several years ago, no further work-up needed at this time; she will follow-up with transmission builder soon after discharge. Thank you, will follow, d/w Dr. Marroquin.
[2017-12-21 11:11] LABS: Bedside Glucose 322 mg/dL (70-110)
[2017-12-21] MEDS: predniSONE 20 MG Tablet 40 MG PO (11:46)
--- NOTE | 2017-12-21 15:08 | CHAPLAIN ---
Type of Pastoral Visit _x__ Initial Visit ___ Follow-up Visit ___ On-call Visit ___ General Patient Visit ___ Spiritual Assessment ___ Family Conference ___ Bereavement ___ Rapid Response ___ Code Blue ___ Other (describe below) Pastoral Care Referral From _x__ Patient ___ Family ___ Nurse ___ Physician ___ Tier Lift Operator ___ Info Print Press Operator ___ Other (describe below) Sacrament/Intervention _x__ Active listening ___ Anointing ___ Congregation ___ Bereavement ___ Communion _x__ Rachel exploration ___ _x__ Life review _x__ Prayer ___ Reconciliation ___ Sacrament of Sick _x__ Supportive presence ___ Wedding ___ Other (describe below) Pastoral Comments patient expresses two end of life experiences that she has received and speaks of being reassured of rachel and the reality of God and heaven; 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
[2017-12-21 16:41] LABS: Bedside Glucose 290 mg/dL (70-110)
[2017-12-21] MEDS: Senna/Docusate Sodium 1 Tablet PO (17:19)
[2017-12-21 22:35] LABS: Bedside Glucose 303 mg/dL (70-110)
[2017-12-22] VITALS (9 sets, daily range): BP systolic 156–159; BP diastolic 79–97; PULSE 54–95; RESP 12–22; TEMP 35.6–36.7; O2SAT 92–96
--- NOTE | 2017-12-22 04:12 | CPS ---
patient requested off bipap at this time. patient was on room air with a sp02 of 94%. no adverse reaction noted.
[2017-12-22] MEDS: 0.9% NaCl Peripheral Flush Adult/Peds IV (05:27)
[2017-12-22 06:30] LABS: Anion Gap 7 (5-15); BUN 22 mg/dL (7-18); BUN/Creat Ratio 38.9 RATIO (10-20); Chloride 106 mmol/L (98-107); Creatinine, Serum 0.56 mg/dL (0.55-1.02); EST Glomerular Filtration Rate 112 mL/min (>60); Est Glom Filt Rate - Afr Amer 135 mL/min (>60); Estimated Creatinine Clearance 39.63 ml/min; Glucose 136 mg/dL (74-106); Magnesium 2.3 mg/dL (1.6-2.6); Potassium 3.6 mmol/L (3.5-5.1); Sodium Level 143 mmol/L (136-145)
[2017-12-22] MEDS: Levothyroxine 25 MCG TABLET PO (06:35)
[2017-12-22 06:38] LABS: Hematocrit 39.4 % (37-47); Hemoglobin 13.3 g/dl (12.0-15.0); Mean Corp Hgb Conc 33.8 g/gl (32-36); Mean Platelet Vol. 10.3 fl (6.2-12.0); Platelet Count 213 K/mm3 (150-450); RBC Distribution Width CV 13.1 % (11.6-14.6); RBC Distribution Width SD 41.3 fl (35.1-43.9); Red Blood Count 4.58 M/mm3 (4.2-5.4); White Blood Count 8.8 K/mm3 (4.4-11.0)
[2017-12-22 06:42] LABS: Scan Indicated on CBC? Y/N NO
[2017-12-22 06:46] LABS: Bedside Glucose 121 mg/dL (70-110)
[2017-12-22] MEDS: Ipratropium/Albuterol Sulfate 3 ML AMPUL.NEB INHALATION ×2 (06:57→11:56)
--- NOTE | 2017-12-22 09:43 | PCM.PROGNOTE ---
Patient Problems: Active and Suspected Problems (Last Updated 12/16/17 @ 22:38 by Melony Gonzalez MD) RSV (respiratory syncytial virus infection) (Acute) Subjective: The patient was seen and examined, she is sitting up in the chair in no acute distress. States she is not back to her baseline, however feeling much better on a daily basis and is less short of breath. Reports a cough with sputum production, sputum has been anywhere from yellow to green. States she is intermittently wheezing. Patient reports she will be going to the TCU today for some rehab. Objective: Recent lab and culture data reviewed. Her sputum is growing staph aureus, ID was consulted and patient on antibiotics. Viral respiratory panel was positive for RSV B. Blood culture showed no growth x5 days, urine culture negative. - Physical Exam General: Alert, Oriented x3, Cooperative, No apparent distress, Well developed, Well nourished, - - obese. No conversational dyspnea HEENT: Atraumatic, Normocephalic Oral: Moist Mucosa Neck: Supple, No Nodes Lungs: No rhonchi, No rales, Diminished, Wheezes Cardiovascular: Regular rate, Regular Rhythm, Normal S1, Normal S2, No murmurs, No rub noted, No Gallop Abdomen: Bowel Sounds Present, Soft, Non Tender, Obese Extremities: No clubbing, No cyanosis, No edema Skin: No rashes Musculoskeletal: No Tenderness to Palpation of Joints or Extremities Lymphatic: - - no adenopathy Neurological: Neuro grossly intact Psych/Mental Status: Alert and oriented to time, place, person, mood and affect Vital Signs Temp Pulse Resp BP Pulse Ox 96.0 F L 95 22 H 159/79 H 95 12/22/17 03:55 12/22/17 07:31 12/22/17 06:57 12/22/17 03:55 12/22/17 06:57 Oxygen Flow Rate (L/min) 3 Oxygen Delivery Method Room Air Weight: 217 lb 2.485 oz Body Mass Index (BMI) 39.6 Intake and Output for Last 24 Hours 12/20/17 12/21/17 12/22/17 23:59 23:59 23:59 Intake Total 1442 / 1442 677.7 / 677.7 Output Total 750 / 750 300 / 300 Balance 692 / 692 377.7 / 377.7 Microbiology Past 72 Hours 12/19/17 07:45 Gram Stain - Final Sputum, Induced/Lukens Respiratory Culture - Final Staphylococcus aureus Laboratory Tests Past 24 Hrs 12/22/17 12/22/17 05:25 05:25 WBC 8.8 RBC 4.58 Hgb 13.3 Hct 39.4 MCV 86.0 MCH 29.0 MCHC 33.8 RDW 13.1 RDW Differential 41.3 Plt Count 213 MPV 10.3 Sodium 143 Potassium 3.6 Chloride 106 Carbon Dioxide 30.0 Anion Gap 7 BUN 22 H Creatinine 0.56 Estim Creat Clear Calc 39.63 Est GFR (MDRD) Af Amer 135 Est GFR (MDRD) Non-Af 112 BUN/Creatinine Ratio 38.9 H Glucose 136 H Calcium 8.0 L Magnesium 2.3 POC Glucose 12/22/17 12/21/17 12/21/17 06:37 21:46 16:35 POC Glucose 121 H 303 H 290 H 12/21/17 11:05 POC Glucose 322 H Medical Necessity - Tobacco Use Smoking Status: Never smoker Assessment/Plan Active and Suspected Problems (Last Updated 12/16/17 @ 22:38 by Melony Gonzalez MD) RSV (respiratory syncytial virus infection) (Acute) RECOMMENDATIONS: 1. Continue scheduled aerosol treatments. 2. Continue oral steroids 3. ID following, continue antibiotics per their recommendations 4. Encourage incentive spirometer use and mobilize patient as tolerated. 5. Continue BiPAP therapy 27/05 with naps and nightly. 6. Continue Lovenox for prophylaxis. 7. Okay to transfer to TCU from pulmonary standpoint. Should continue BiPAP when there 8. Follow-up in the pulmonary clinic after discharge from the transitional care unit IMPRESSIONS: 1. Acute hypoxemic and hypercarbic respiratory failure secondary to asthma exacerbation due to RSV infection/staph tracheobronchitis The patient has remained stable following extubation. She did require initiation of BiPAP therapy shortly after extubation due to bronchospasm. She has since been weaned to room air. Plan to continue scheduled aerosol treatments. She has been transitioned to prednisone. Continue to encourage incentive spirometer use and mobilize patient as tolerated. Given that the patient's sputum culture is now growing staph aureus, antibiotics were resumed 12/20. 2. Severe sepsis secondary to RSV/staph tracheobronchitis Improved. Continue current supportive measures with scheduled aerosol treatments, antibiotics and steroids. 3. Paroxysmal atrial fibrillation/coronary artery disease status post CABG/chronic systolic heart failure Continue current medical therapy with amiodarone and beta-sara. 4. Diabetes type 2 Continue sliding-scale coverage and Levemir, adjust as indicated. 5. Known obstructive sleep apnea Continue bilevel therapy at a pressure setting of 15/9 cm of water with humidification. 6. Hypothyroidism/hypertension/history of obstructive sleep apnea/migraine/advanced age Complicates care, management, recovery and prognosis. Continue home medications as indicated. This note was generated with [email or web address] dictation software. It may contain incorrect words, spelling, and punctuation that were not noted in checking the note before signing.
--- NOTE | 2017-12-22 09:47 | PN_ITS ---
Patient Problems: Active and Suspected Problems (Last Updated 12/16/17 @ 22:38 by Melony Gonzalez MD) RSV (respiratory syncytial virus infection) (Acute) Subjective: The patient was seen and examined, she is sitting up in the chair in no acute distress. States she is not back to her baseline, however feeling much better on a daily basis and is less short of breath. Reports a cough with sputum production, sputum has been anywhere from yellow to green. States she is intermittently wheezing. Patient reports she will be going to the TCU today for some rehab. Objective: Recent lab and culture data reviewed. Her sputum is growing staph aureus, ID was consulted and patient on antibiotics. Viral respiratory panel was positive for RSV B. Blood culture showed no growth x5 days, urine culture negative. - Physical Exam General: Alert, Oriented x3, Cooperative, No apparent distress, Well developed, Well nourished, - - obese. No conversational dyspnea HEENT: Atraumatic, Normocephalic Oral: Moist Mucosa Neck: Supple, No Nodes Lungs: No rhonchi, No rales, Diminished, Wheezes Cardiovascular: Regular rate, Regular Rhythm, Normal S1, Normal S2, No murmurs, No rub noted, No Gallop Abdomen: Bowel Sounds Present, Soft, Non Tender, Obese Extremities: No clubbing, No cyanosis, No edema Skin: No rashes Musculoskeletal: No Tenderness to Palpation of Joints or Extremities Lymphatic: - - no adenopathy Neurological: Neuro grossly intact Psych/Mental Status: Alert and oriented to time, place, person, mood and affect Vital Signs Temp Pulse Resp BP Pulse Ox 96.0 F L 95 22 H 159/79 H 95 12/22/17 03:55 12/22/17 07:31 12/22/17 06:57 12/22/17 03:55 12/22/17 06:57 Oxygen Flow Rate (L/min) 3 Oxygen Delivery Method Room Air Weight: 217 lb 2.485 oz Body Mass Index (BMI) 39.6 Intake and Output for Last 24 Hours 12/20/17 12/21/17 12/22/17 23:59 23:59 23:59 Intake Total 1442 / 1442 677.7 / 677.7 Output Total 750 / 750 300 / 300 Balance 692 / 692 377.7 / 377.7 Microbiology Past 72 Hours 12/19/17 07:45 Gram Stain - Final Sputum, Induced/Lukens Respiratory Culture - Final Staphylococcus aureus Laboratory Tests Past 24 Hrs 12/22/17 12/22/17 05:25 05:25 WBC 8.8 RBC 4.58 Hgb 13.3 Hct 39.4 MCV 86.0 MCH 29.0 MCHC 33.8 RDW 13.1 RDW Differential 41.3 Plt Count 213 MPV 10.3 Sodium 143 Potassium 3.6 Chloride 106 Carbon Dioxide 30.0 Anion Gap 7 BUN 22 H Creatinine 0.56 Estim Creat Clear Calc 39.63 Est GFR (MDRD) Af Amer 135 Est GFR (MDRD) Non-Af 112 BUN/Creatinine Ratio 38.9 H Glucose 136 H Calcium 8.0 L Magnesium 2.3 POC Glucose 12/22/17 12/21/17 12/21/17 06:37 21:46 16:35 POC Glucose 121 H 303 H 290 H 12/21/17 11:05 POC Glucose 322 H Medical Necessity - Tobacco Use Smoking Status: Never smoker Assessment/Plan Active and Suspected Problems (Last Updated 12/16/17 @ 22:38 by Melony Gonzalez MD) RSV (respiratory syncytial virus infection) (Acute) RECOMMENDATIONS: 1. Continue scheduled aerosol treatments. 2. Continue oral steroids 3. ID following, continue antibiotics per their recommendations 4. Encourage incentive spirometer use and mobilize patient as tolerated. 5. Continue BiPAP therapy 27/05 with naps and nightly. 6. Continue Lovenox for prophylaxis. 7. Okay to transfer to TCU from pulmonary standpoint. Should continue BiPAP when there 8. Follow-up in the pulmonary clinic after discharge from the transitional care unit IMPRESSIONS: 1. Acute hypoxemic and hypercarbic respiratory failure secondary to asthma exacerbation due to RSV infection/staph tracheobronchitis The patient has remained stable following extubation. She did require initiation of BiPAP therapy shortly after extubation due to bronchospasm. She has since been weaned to room air. Plan to continue scheduled aerosol treatments. She has been transitioned to prednisone. Continue to encourage incentive spirometer use and mobilize patient as tolerated. Given that the patient's sputum culture is now growing staph aureus, antibiotics were resumed . 2. Severe sepsis secondary to RSV/staph tracheobronchitis Improved. Continue current supportive measures with scheduled aerosol treatments, antibiotics and steroids. 3. Paroxysmal atrial fibrillation/coronary artery disease status post CABG/ chronic systolic heart failure Continue current medical therapy with amiodarone and beta-sara. 4. Diabetes type 2 Continue sliding-scale coverage and Levemir, adjust as indicated. 5. Known obstructive sleep apnea Continue bilevel therapy at a pressure setting of 15/9 cm of water with humidification. 6. Hypothyroidism/hypertension/history of obstructive sleep apnea/migraine/ advanced age Complicates care, management, recovery and prognosis. Continue home medications as indicated. This note was generated with [employer] dictation software. It may contain incorrect words, spelling, and punctuation that were not noted in checking the note before signing.
--- NOTE | 2017-12-22 09:58 | PCM.TXEXTCAR ---
- Diet 12/20/17 08:51 Diet: Carbohydrate Controlled Is pt able to select menu?: Yes - Therapies Physical Therapy: Eval and Treat Occupational Therapy: Eval and Treat - Allergies/Procedures Done in Hospital Allergies/Adverse Reactions: Allergies Beta-Blockers (Beta-Adrenergic Bloc Allergy (Verified 12/16/17 20:27) Shortness of breath doxycycline Allergy (Verified 12/16/17 20:27) Hives Penicillins Allergy (Verified 12/16/17 20:27) Rash red dye Allergy (Verified 12/16/17 20:27) Unknown Sulfa (Sulfonamide Antibiotics) Allergy (Verified 12/16/17 20:27) Rash theophylline Allergy (Verified 12/16/17 20:27) Rash codeine Adverse Reaction (Verified 12/16/17 20:27) Nausea - Type of Care/Length of Stay Estimated LOS: Convalescent Care Less Than 30 days Type of Care Needed: Skilled Rehab Potential: Fair Prognosis: Fair - Additional Orders/Day of Discharge Day of Discharge: 12/22/17 - Dietary and Speech Recommendations Dietitian Recommendations/Changes: Recommend diet change to 1600 calorie controlled, cardiac. - Follow Up Care Primary Care Physician: Christi Oswald MD [Primary Care Provider] - Please follow up with your Primary Care Physician in: in 1-2 weeks
--- NOTE | 2017-12-22 10:00 | DS.PCM_ITS ---
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 heart disease (ASHD) (Chronic) Asthma (Chronic) Restrictive lung disease (Chronic) Paroxysmal atrial fibrillation (Chronic) Nonrheumatic tricuspid valve regurgitation (Chronic) Dilated cardiomyopathy (Chronic) 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 No acute infiltrate. Electronically Signed: Eric Cole DO at 21:42 EDT , Service support , Chest X-Ray 12/16/17 20:42 IMPRESSION: The endotracheal tube terminates about 5.3 cm above the millie. A gastric tube extends into the upper abdomen. There is bibasilar atelectasis. Electronically Signed: Angie Jamison MD at 22:03 EDT Tel Direct: [phone], Service support , KUB X-Ray 12/16/17 20:55 IMPRESSION: The tip of the gastric tube is in the expected location of the antrum of the stomach. Electronically Signed: Angie Jamison MD at 22:06 EDT Tel Direct: [phone], Service support , Chest X-Ray 12/16/17 21:50 IMPRESSION: Right subclavian central line in place with the tip in the lower SVC. No pneumothorax. Endotracheal tube and NG tube remain in stable position. No acute infiltrate. Electronically Signed: Eric Cole DO at 22:51 EDT , Service support , Chest X-Ray 12/17/17 04:35 IMPRESSION: Moderate cardiomegaly. No failure. No pneumonia. Pleural reactive change in the left costophrenic angle Electronically Signed: Donny Bee, at 8:37 EDT Tel , Service support , Chest X-Ray 12/18/17 22:14 IMPRESSION: Tubes and lines in stable position. Mild bibasilar atelectasis. at 2328 Reported and signed by: Dominique Calzada MD Electronically Signed: Dominique Calzada MD at 22:26 EDT Tel , Service support , Microbiology 12/16/17 20:38 Blood Culture (Wb) - Anticubital Right Blood Culture - Final No growth in 5 days. 12/16/17 21:50 Blood Culture (Wb) - Anticubital Left Blood Culture - Final No growth in 5 days. 12/19/17 07:45 Sputum, Induced/Lukens Gram Stain - Final 12/19/17 07:45 Sputum, Induced/Lukens Respiratory Culture - Final Staphylococcus aureus 12/16/17 21:25 Urine Catheter - Chandra Urine Culture - Final Culture exhibits no growth. 12/16/17 23:30 Mucosa - Nasopharyngeal Respiratory Panel (PCR) - Final RSV B Operations: None Summary of Care Provided: Patient is a 72-year-old lady with multiple comorbidities admitted with progressive shortness of breath and assessment of acute hypoxemic and hypercarbic respiratory failure was made admitted to the intensive care unit where patient has since been managed on the vent. Patient infectious assay came back positive for RSV 1. Acute hypoxic hypoxemic and hypercarbic respiratory failure secondary to asthma exacerbation due to RSV infection complicated by MSSA staph pneumonia, patient admitted to the intensive care unit with consultation placed to the intensive care team patient has since been managed on the vent seen and discussed with Dr. Sevilla this morning plan is for patient to be weaned off the vent. Patient was weaned off the vent on 11/18/2017. Patient seen, cultures came back positive for staph aureus oxacillin sensitive antibiotic regimen subsequently consulted consultation was placed infectious disease in view of patient history of hypogammaglobinemia; was discharged on a short course of Duricef. 2. Acute asthma exacerbation secondary to RSV, 3. Severe sepsis likely secondary to RSV infection, 4. Paroxysmal atrial fibrillation, rate controlled, on IV amiodarone, IV metoprolol 5 mg every 6 is on systemic anticoagulation with Eliquis which was held on admission 5. Diabetes mellitus type 2 uncontrolled in view of concomitant IV steroid use did continue with long-acting insulin as well as Accu-Cheks before meals and at bedtime with sliding scale coverage 6. CAD status post CABG, ischemic cardiomyopathy, EF 45% on last 2d-ECHO, 7. Hypertension, controlled 9. Hypothyroidism patient is on levothyroxine 10. The patient states (Hypogammaglobulinemia) is followed by Plant Safety Engineer as outpatient 11. DVT prophylaxis - Lovenox SC. Home Medications: Medications to take at Discharge Budesonide/Formoterol 160/4.5 [Symbicort 160/4.5 Mcg Inhaler (SP)] 2 puff INHALATION BID PRN 11/09/15 Montelukast [Singulair] 10 mg PO DAILY 11/09/15 Acetaminophen [Tylenol Tablet] 650 mg PO Q8H PRN PRN #0 tab 12/04/15 Acetaminophen/Butalbital/Caffe [Fioricet] 1 tab PO BID PRN PRN 03/26/17 Ezetimibe [Zetia] 10 mg PO DAILY 03/26/17 Potassium Chloride [K-Dur] 20 meq PO TID 03/26/17 amiodarone 200 mg tablet 100 mg PO BID tab 08/22/17 benzonatate 100 mg capsule 100 mg PO Q6H 10/19/17 levalbuterol 0.63 mg/3 mL solution for nebulization 0.63 mg INHALATION Q4H PRN # 120 vial 10/28/17 benzonatate 100 mg capsule 100 mg PO TID PRN #30 cap 12/15/17 Albuterol IH (ProAir) [Proair Hfa] 2 puff INHALATION Q4H PRN PRN 12/17/17 Levothyroxine [Synthroid] 25 mcg PO DAILY 12/17/17 Apixaban [Eliquis] 5 mg PO BID 12/22/17 Carvedilol [Coreg (Beta Daniel)] 6.25 mg PO BID 12/22/17 Cefadroxil [Duricef] 1,000 mg PO BID 12/22/17 Famotidine [Pepcid] 20 mg PO BID 12/22/17 Furosemide [Lasix] 20 mg PO DAILY 12/22/17 Insulin Aspart [Novolog Flexpen] See Protocol SC ACHS 12/22/17 Insulin Detemir [Levemir FlexPen] 10 units SC 1100,2200 12/22/17 Ipratropium/Albuterol Sulfate [Duoneb] 3 ml INHALATION Q4HWA.RT 12/22/17 Prednisone See Taper PO UD 12/22/17 Senna/Docusate Sodium [Senokot-S] 1 tablet PO BID 12/22/17 Primary Care Physician: Christi Oswald MD [Primary Care Provider] - Please follow up with your Primary Care Physician in: in 1-2 weeks Disposition: [facility] facility Minutes spent on discharge:: 45 Patient Condition:: Stable Medical Necessity - Tobacco Use Smoking Status: Never smoker Meaningful Use Info Meaningful Use Diagnoses (Choose all that apply): None applicable Code Visit Inpatient E&M: 23602 Disch Hosp
--- NOTE | 2017-12-22 10:19 | CASEMGMT ---
Physician is discharging patient to TCU today. Orders copied. RN Notified and patient is aware. Plan: [facility] TCU under skilled level of care. Lorena CARIAS MSW
[2017-12-22] MEDS: Cefadroxil 500 MG CAPSULE 1000 MG PO (10:24)
[2017-12-22] MEDS: Carvedilol 6.25 MG Tablet PO (10:24)
[2017-12-22] MEDS: Senna/Docusate Sodium 1 Tablet PO (10:24)
[2017-12-22] MEDS: Famotidine 20 MG Tablet PO (10:24)
[2017-12-22] MEDS: Amiodarone 200 MG Tablet 100 MG PO (10:24)
[2017-12-22] MEDS: predniSONE 20 MG Tablet 40 MG PO (10:25)
[2017-12-22] MEDS: Enoxaparin 30 MG/0.3 ML Syringe SC (10:25)
--- NOTE | 2017-12-22 11:26 | NURSING ---
TRIPLE LEUMEN CATH DCD PER PROTOCOL ORDERED. MEGHAN WELL. SCANT BLEEDING ON REMOVAL -PRESSURE HELD X 4 1/2 MIN. NO FURTHUR BLEEDING. SITE COVERED W PETROLEUM OINT AND DSD. INSTRUCTED PT TO LAY FLAT X 30 MIN. AND KEEP DSG DRY X 24 HRS.
--- NOTE | 2017-12-22 11:26 | NURSING ---
Report called to Carole in TCU. Patient will eat lunch and then can go over to bed 17.
--- NOTE | 2017-12-22 11:31 | PN.ID_ITS ---
Patient Problems: Active and Suspected Problems (Last Updated 12/16/17 @ 22:38 by Melony Gonzalez MD) RSV (respiratory syncytial virus infection) (Acute) Subjective: Feeling better, less wheeze, no fever - Physical Exam General: Alert, Cooperative Lungs: Wheezes Cardiovascular: Regular rate, Regular Rhythm Abdomen: Soft, Non Tender, Non-Distended Skin: No rashes Vital Signs Temp Pulse Resp BP Pulse Ox 98.0 F 74 18 156/97 H 92 12/22/17 10:16 12/22/17 11:14 12/22/17 10:16 12/22/17 10:16 12/22/17 10:16 Oxygen Flow Rate (L/min) 3 Oxygen Delivery Method Room Air Weight: 98.5 kg Body Mass Index (BMI) 39.6 Intake and Output for Last 24 Hours 12/20/17 12/21/17 12/22/17 23:59 23:59 23:59 Intake Total 1442 / 1442 677.7 / 677.7 Output Total 750 / 750 300 / 300 Balance 692 / 692 377.7 / 377.7 Microbiology Past 72 Hours 12/19/17 07:45 Gram Stain - Final Sputum, Induced/Lukens Respiratory Culture - Final Staphylococcus aureus Laboratory Tests Past 24 Hrs 12/22/17 12/22/17 05:25 05:25 WBC 8.8 RBC 4.58 Hgb 13.3 Hct 39.4 MCV 86.0 MCH 29.0 MCHC 33.8 RDW 13.1 RDW Differential 41.3 Plt Count 213 MPV 10.3 Sodium 143 Potassium 3.6 Chloride 106 Carbon Dioxide 30.0 Anion Gap 7 BUN 22 H Creatinine 0.56 Estim Creat Clear Calc 39.63 Est GFR (MDRD) Af Amer 135 Est GFR (MDRD) Non-Af 112 BUN/Creatinine Ratio 38.9 H Glucose 136 H Calcium 8.0 L Magnesium 2.3 POC Glucose 12/22/17 12/21/17 12/21/17 06:37 21:46 16:35 POC Glucose 121 H 303 H 290 H Medical Necessity - Tobacco Use Smoking Status: Never smoker Route of nutrition/ use of supplements: [] Nutritional Intake: [] IV Site: [] Chandra Catheter: [] - Assessment/Plan Antibiotics: [] Assessment/Plan: [] RSV B infection now with MSSA in sputum - fever improved, out of icu and off vent. Breathing slowly improving. 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 Follows with immunology, last infection was several years ago, no further work- up needed at this time; she will follow-up with manager in training soon after discharge. D/c on short course duricef. will sign off.
[2017-12-22 12:05] LABS: Bedside Glucose 142 mg/dL (70-110)
== END 2017-12-22 13:05 | disposition skilled nursing facility (03) | DRG 871 ==
LOC: ED 20:33 → ICU 22:43 → PCU 12-21 09:19
PROVIDERS: Internal Medicine; Internal Medicine Critical Care Medicine; Admitting Provider Hospitalist; Emergency Provider Emergency Medicine; Family Provider Internal Medicine; PCP Internal Medicine; Visit Provider Internal Medicine
DX: A41.89 Other specified sepsis (principal); J15.211 Pneumonia due to Methicillin susceptible Staphylococcus aureus; J96.02 Acute respiratory failure with hypercapnia; J96.01 Acute respiratory failure with hypoxia; D80.1 Nonfamilial hypogammaglobulinemia; I50.22 Chronic systolic (congestive) heart failure; I42.0 Dilated cardiomyopathy; J45.21 Mild intermittent asthma with (acute) exacerbation; R65.20 Severe sepsis without septic shock; B97.4 Respiratory syncytial virus as the cause of diseases classified elsewhere; I48.0 Paroxysmal atrial fibrillation; E11.65 Type 2 diabetes mellitus with hyperglycemia; Z95.1 Presence of aortocoronary bypass graft; I25.10 Atherosclerotic heart disease of native coronary artery without angina pectoris; I25.5 Ischemic cardiomyopathy; I11.0 Hypertensive heart disease with heart failure; E78.5 Hyperlipidemia, unspecified; E66.01 Morbid (severe) obesity due to excess calories; Z68.39 Body mass index [BMI] 39.0-39.9, adult; Z71.3 Dietary counseling and surveillance; G47.33 Obstructive sleep apnea (adult) (pediatric); G43.909 Migraine, unspecified, not intractable, without status migrainosus; E03.2 Hypothyroidism due to medicaments and other exogenous substances; T50.995A Adverse effect of other drugs, medicaments and biological substances, initial encounter
CPT/HCPCS: 31500; 31720; 36600; 51702; 71045; 74018; 80048; 81001; 82803; 82962; 83605; 83735; 83880; 84100; 84484; 85025; 85027; 85610; 85730; 87040; 87070; 87077; 87086; 87186; 87205; 87633; 87641; 93005; 94002; 94003; 94640; 94660; 95831; 97110; 97116; 97162; 97166; 97530; 97802; 97803; 99251; 99285; J7030; J7040; J7050; A4216; C1751; G0463

== ENCOUNTER 2017-12-22 13:15 | Inpatient (IN) | payer MEDICARE, OTHER, SELFPAY ==
--- NOTE | 2017-12-22 13:15 | NURSING ---
PT ARRIVED VIA WC FROM [facility]
[2017-12-22 13:34] VITALS: BP 155/63; PULSE 72; RESP 24; TEMP 36.4; O2SAT 93
[2017-12-22 14:31] VITALS: BMI 41.9
[2017-12-22 14:32] VITALS: BMI 41.9
[2017-12-22 15:55] VITALS: BP 147/65; PULSE 64; RESP 18; TEMP 37.1; O2SAT 91
[2017-12-22 16:05] VITALS: PULSE 64; RESP 18; O2SAT 96
[2017-12-22] MEDS: Ipratropium/Albuterol Sulfate 3 ML AMPUL.NEB INHALATION ×2 (16:05→19:31)
[2017-12-22 16:51] LABS: Bedside Glucose 289 mg/dL (70-110)
[2017-12-22] MEDS: Amiodarone 200 MG Tablet 100 MG PO (17:45)
[2017-12-22] MEDS: APIXABAN 5 MG TABLET PO (17:46)
[2017-12-22] MEDS: Cefadroxil 500 MG CAPSULE 1000 MG PO (17:46)
[2017-12-22] MEDS: predniSONE 10 MG Tablet PO (17:46)
[2017-12-22] MEDS: Carvedilol 6.25 MG Tablet PO (17:46)
[2017-12-22] MEDS: Senna/Docusate Sodium 1 Tablet PO (17:46)
--- NOTE | 2017-12-22 18:03 | PCM.HP.STD ---
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 The patient is a 72 year old Female with below past medical history presented to [facility] Emergency Department 12/16/2017 with respiratory distress. 12/16/2017 EKG Normal sinus rhythm, nonspecific ST abnormality. 12/16/2017 KUB tip of gastric tube in antrum of stomach. Pulsox 64%, slumped, unresponsive. CPAP applied. Shortness of breath x several days, productive cough, E-mycin, prednisone not helpful as outpatient. Chest pain. Chest X-ray showed left lower lobe infiltrate. WBC 16.7, BMP Cr 1.13, Glucose 220, UA negative. Troponin okay, BNP 261, Lactate 2.6. Patient intubated, right subclavian line placed. Levaquin, Azactam, IV fluids given. 12/16/2017 Admit to ICU. Levaquin, Solu-Medrol, Duoneb for pneumonia. IV fluids for sepsis. 12/17/2017 Dr. Schmitt recommended Fentanyl drip, antibiotics, IV steroids, bronchodilators, spontaneous wakening, breathing trials, stop Metoprolol, continue carvedilol, start tube feeding, stop IV fluids. 12/18/2017 Chest X-ray showed bibasilar atelectasis. 12/18/2017 Respiratory panel positive RSV B. Continue IV Levaquin. Eliquis held. 12/19/2017 Wean patient off Ventilator. 12/20/2017 Weaned off ventilator to BiPAP. 12/21/2017 Dr. Finn noted RSV B, MSSA in sputum. Continue Cefazolin IV for pneumonia. Transition Cefazolin to Duricef. Insulin added for hyperglycemia secondary to steroids. 12/22/2017 Admit to TCU for rehabilitation, strengthening, prior to discharge home with spouse. 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 heart disease (ASHD) (Chronic) Asthma (Chronic) Restrictive lung disease (Chronic) Paroxysmal atrial fibrillation (Chronic) Nonrheumatic tricuspid valve regurgitation (Chronic) Dilated cardiomyopathy (Chronic) 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) HTN (hypertension) (Chronic) Diabetes mellitus (Chronic) HLD (hyperlipidemia) (Chronic) DM type 2 (diabetes mellitus, type 2) (Chronic) Hypogammaglobulinemia (Chronic) Morbid obesity (Chronic) Migraines (Chronic) BARTOLO (obstructive sleep apnea) (Chronic) CAD (coronary artery disease) (Chronic) Allergies Beta-Blockers (Beta-Adrenergic Bloc Allergy (Verified 12/16/17 20:27) Shortness of breath doxycycline Allergy (Verified 12/16/17 20:27) Hives Penicillins Allergy (Verified 12/16/17 20:27) Rash red dye Allergy (Verified 12/16/17 20:27) Unknown Sulfa (Sulfonamide Antibiotics) Allergy (Verified 12/16/17 20:27) Rash theophylline Allergy (Verified 12/16/17 20:27) Rash codeine Adverse Reaction (Verified 12/16/17 20:27) Nausea Home Medications: Ambulatory Orders Medication Instructions Recorded Budesonide/Formoterol 160/4.5 2 puff INHALATION BID PRN 11/09/15 [Symbicort 160/4.5 Mcg Inhaler (SP)] Montelukast [Singulair] 10 mg PO DAILY 11/09/15 Acetaminophen [Tylenol Tablet] 650 mg PO Q8H PRN PRN #0 tab 12/04/15 Acetaminophen/Butalbital/Caffe 1 tab PO BID PRN PRN 03/26/17 [Fioricet] Ezetimibe [Zetia] 10 mg PO DAILY 07/15/17 Potassium Chloride [K-Dur] 20 meq PO TID 03/26/17 amiodarone 200 mg tablet 100 mg PO BID tab 08/22/17 benzonatate 100 mg capsule 100 mg PO Q6H 10/19/17 levalbuterol 0.63 mg/3 mL solution 0.63 mg INHALATION Q4H PRN #120 10/28/17 for nebulization vial benzonatate 100 mg capsule 100 mg PO TID PRN #30 cap 12/15/17 Albuterol IH (ProAir) [Proair Hfa] 2 puff INHALATION Q4H PRN PRN 12/17/17 Levothyroxine [Synthroid] 25 mcg PO DAILY 12/17/17 Apixaban [Eliquis] 5 mg PO BID 12/22/17 Carvedilol [Coreg (Beta Daniel)] 6.25 mg PO BID 12/22/17 Cefadroxil [Duricef] 1,000 mg PO BID 12/22/17 Famotidine [Pepcid] 20 mg PO BID 12/22/17 Furosemide [Lasix] 20 mg PO DAILY 12/22/17 Insulin Aspart [Novolog Flexpen] See Protocol SC ACHS 12/22/17 Insulin Detemir [Levemir FlexPen] 10 units SC 1100,2200 12/22/17 Ipratropium/Albuterol Sulfate 3 ml INHALATION Q4HWA.RT 12/22/17 [Duoneb] Prednisone See Taper PO UD 12/22/17 Senna/Docusate Sodium [Senokot-S] 1 tablet PO BID 12/22/17 Surgical History: cataract, cholecystectomy, coronary bypass surgery - x4., hysterectomy Psychiatric History: 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 Lives: Spouse/ Significant Other Smoking Status: Never smoker Tobacco Use: Non-smoker Alcohol: None Drugs: None - *Family History Paternal History Items: Heart Disease Maternal History Items: Cancer Review of Systems Constitutional: Denies: Chills, Fever, Weight Change HEENT: Denies: Head Aches, Sinus Congestion, Sinus Drainage Cardiovascular: Denies: Chest Pain, Palpitations Respiratory: Denies: Cough, Shortness of breath at rest, Sputum production Gastrointestinal: Denies: Abdominal Pain, Nausea, Vomiting Genitourinary: Denies: Dysuria Musculoskeletal: Denies: Joint Pain, Joint Tenderness Skin: Denies: Rash, Wounds Neurological: Denies: Numbness, Tingling, Focal weakness Psychiatric: Denies: Anxiety, Depression, Homicidal Ideations, Suicidal Ideations Hematologic/ Lymphatic: Denies: Easy Bruising, Easy Bleeding VTE Information - Inpt Only VTE Present on Admission: No VTE Mechan Device Prophylaxis: Knee High JANAY Hose VTE Pharm Prophylaxis ordered?: No Reason prophylaxis not ordered:: Treatment Not Indicated Patient Problems: Active and Suspected Problems (Last Updated 12/16/17 @ 22:38 by Melony Gonzalez MD) Shortness of breath (Acute) Acute respiratory failure (Acute) Severe sepsis (Acute) MSSA (methicillin susceptible Staphylococcus aureus) pneumonia (Acute) - Physical Exam General: Alert, Oriented x3, Cooperative HEENT: Atraumatic, PERRLA, EOMI, Normocephalic Neck: Supple, No JVD, Negative Carotid Bruits Lungs: Normal air movement, Wheezes - Few scattered. Cardiovascular: Regular rate, No murmurs Abdomen: Bowel Sounds Present, Soft, Non Tender Extremities: No edema, Capillary Refill Less than 3 Seconds Skin: No rashes, No breakdown Musculoskeletal: No Tenderness to Palpation of Joints or Extremities Neurological: Cranial nerves II-XII grossly intact Psych/Mental Status: Normal Affect, Appropriate Vital Signs Temp Pulse Resp BP Pulse Ox 98.8 F 64 18 147/65 H 96 12/22/17 15:55 12/22/17 16:05 12/22/17 16:05 12/22/17 15:55 12/22/17 16:05 Oxygen Delivery Method Room Air Weight: 100.65 kg Body Mass Index (BMI) 41.9 POC Glucose 12/22/17 16:43 POC Glucose 289 H Assessment/Plan Active and Suspected Problems (Last Updated 12/16/17 @ 22:38 by Melony Gonzalez MD) Shortness of breath (Acute) Acute respiratory failure (Acute) Severe sepsis (Acute) MSSA (methicillin susceptible Staphylococcus aureus) pneumonia (Acute) 72 year old female with below past medical history hospitalized for acute respiratory distress requiring intubation secondary to RSV B infection, MSSA pneumonia, complicated by atrial fibrillation, admitted to TCU with debility, here for rehabilitation, strengthening, prior to discharge home with spouse. Debility - PT/OT. Pain - Tylenol 1000MG Q8H PRN mild pain. Bowel - Miralax 17GM daily, Senna/colace 2 tablets BID, Dulcolax 10MG PO daily PRN. Pneumonia vaccination - Administer Prevnar 13 and/or Pneumovax 23 as necessary. DVT prophylaxis - Not necessary, already on Eliquis. Migraine - Fioricet 1 tablet BID PRN. Asthma - Singulair 10MG daily, Albuterol 2 puffs Q4H PRN, Symbicort 160/4.5MG 2 puffs BID, Duoneb 3ML Q4HWA, [id number] 0.63MG Q4H PRN, Prednisone taper. Atrial Fibrillation - Coreg 6.25MG BID, Amiodarone 100MG BID, Eliquis 5MG BID. Cough - Tessalon perles 100MG TID PRN. MSSA pneumonia - Duricef 1000MG BID thru 12/27/2017. Hyperlipidemia - Zetia 10MG daily. GERD - Famotidine 20MG daily. Edema - Lasix 20MG daily. Diabetes Mellitus II - Levemir 10 units BID, Novolog 7 units TIDAC. Hypothyroidism - Levothyroxine 25MCG daily. Hypokalemia - KCL 20MEQ TID.
--- NOTE | 2017-12-22 18:14 | HP.PCM_ITS ---
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 The patient is a 72 year old Female with below past medical history presented to [facility] Emergency Department 12/16/2017 with respiratory distress. 12/16/2017 EKG Normal sinus rhythm, nonspecific ST abnormality. 12/16/2017 KUB tip of gastric tube in antrum of stomach. Pulsox 64%, slumped, unresponsive. CPAP applied. Shortness of breath x several days, productive cough, E-mycin, prednisone not helpful as outpatient. Chest pain. Chest X-ray showed left lower lobe infiltrate. WBC 16.7, BMP Cr 1.13, Glucose 220, UA negative. Troponin okay, BNP 261, Lactate 2.6. Patient intubated, right subclavian line placed. Levaquin, Azactam, IV fluids given. 12/16/2017 Admit to ICU. Levaquin, Solu-Medrol, Duoneb for pneumonia. IV fluids for sepsis. 12/17/2017 Dr. Schmitt recommended Fentanyl drip, antibiotics, IV steroids, bronchodilators, spontaneous wakening, breathing trials, stop Metoprolol, continue carvedilol, start tube feeding, stop IV fluids. 12/18/2017 Chest X-ray showed bibasilar atelectasis. 12/18/2017 Respiratory panel positive RSV B. Continue IV Levaquin. Eliquis held. 12/19/2017 Wean patient off Ventilator. 12/20/2017 Weaned off ventilator to BiPAP. 12/21/2017 Dr. Finn noted RSV B, MSSA in sputum. Continue Cefazolin IV for pneumonia. Transition Cefazolin to Duricef. Insulin added for hyperglycemia secondary to steroids. 12/22/2017 Admit to TCU for rehabilitation, strengthening, prior to discharge home with spouse. 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 heart disease (ASHD) (Chronic) Asthma (Chronic) Restrictive lung disease (Chronic) Paroxysmal atrial fibrillation (Chronic) Nonrheumatic tricuspid valve regurgitation (Chronic) Dilated cardiomyopathy (Chronic) 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) HTN (hypertension) (Chronic) Diabetes mellitus (Chronic) HLD (hyperlipidemia) (Chronic) DM type 2 (diabetes mellitus, type 2) (Chronic) Hypogammaglobulinemia (Chronic) Morbid obesity (Chronic) Migraines (Chronic) BARTOLO (obstructive sleep apnea) (Chronic) CAD (coronary artery disease) (Chronic) Allergies Beta-Blockers (Beta-Adrenergic Bloc Allergy (Verified 12/16/17 20:27) Shortness of breath doxycycline Allergy (Verified 12/16/17 20:27) Hives Penicillins Allergy (Verified 12/16/17 20:27) Rash red dye Allergy (Verified 12/16/17 20:27) Unknown Sulfa (Sulfonamide Antibiotics) Allergy (Verified 12/16/17 20:27) Rash theophylline Allergy (Verified 12/16/17 20:27) Rash codeine Adverse Reaction (Verified 12/16/17 20:27) Nausea Home Medications: Ambulatory Orders Medication Instructions Recorded Budesonide/Formoterol 160/4.5 2 puff INHALATION BID PRN 11/09/15 [Symbicort 160/4.5 Mcg Inhaler (SP)] Montelukast [Singulair] 10 mg PO DAILY 11/09/15 Acetaminophen [Tylenol Tablet] 650 mg PO Q8H PRN PRN #0 tab 12/04/15 Acetaminophen/Butalbital/Caffe 1 tab PO BID PRN PRN 03/26/17 [Fioricet] Ezetimibe [Zetia] 10 mg PO DAILY 07/15/17 Potassium Chloride [K-Dur] 20 meq PO TID 03/26/17 amiodarone 200 mg tablet 100 mg PO BID tab 08/22/17 benzonatate 100 mg capsule 100 mg PO Q6H 10/19/17 levalbuterol 0.63 mg/3 mL solution 0.63 mg INHALATION Q4H PRN #120 10/28/17 for nebulization vial benzonatate 100 mg capsule 100 mg PO TID PRN #30 cap 12/15/17 Albuterol IH (ProAir) [Proair Hfa] 2 puff INHALATION Q4H PRN PRN 12/17/17 Levothyroxine [Synthroid] 25 mcg PO DAILY 12/17/17 Apixaban [Eliquis] 5 mg PO BID 12/22/17 Carvedilol [Coreg (Beta Adniel)] 6.25 mg PO BID 12/22/17 Cefadroxil [Duricef] 1,000 mg PO BID 12/22/17 Famotidine [Pepcid] 20 mg PO BID 12/22/17 Furosemide [Lasix] 20 mg PO DAILY 12/22/17 Insulin Aspart [Novolog Flexpen] See Protocol SC ACHS 12/22/17 Insulin Detemir [Levemir FlexPen] 10 units SC 1100,2200 12/22/17 Ipratropium/Albuterol Sulfate 3 ml INHALATION Q4HWA.RT 12/22/17 [Duoneb] Prednisone See Taper PO UD 12/22/17 Senna/Docusate Sodium [Senokot-S] 1 tablet PO BID 12/22/17 Surgical History: cataract, cholecystectomy, coronary bypass surgery - x4., hysterectomy 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 Lives: Spouse/ Significant Other Smoking Status: Never smoker Tobacco Use: Non-smoker Alcohol: None Drugs: None - *Family History Paternal History Items: Heart Disease Maternal History Items: Cancer Review of Systems Constitutional: Denies: Chills, Fever, Weight Change HEENT: Denies: Head Aches, Sinus Congestion, Sinus Drainage Cardiovascular: Denies: Chest Pain, Palpitations Respiratory: Denies: Cough, Shortness of breath at rest, Sputum production Gastrointestinal: Denies: Abdominal Pain, Nausea, Vomiting Genitourinary: Denies: Dysuria Musculoskeletal: Denies: Joint Pain, Joint Tenderness Skin: Denies: Rash, Wounds Neurological: Denies: Numbness, Tingling, Focal weakness Psychiatric: Denies: Anxiety, Depression, Homicidal Ideations, Suicidal Ideations Hematologic/ Lymphatic: Denies: Easy Bruising, Easy Bleeding VTE Information - Inpt Only VTE Present on Admission: No VTE Mechan Device Prophylaxis: Knee High JANAY Hose VTE Pharm Prophylaxis ordered?: No Reason prophylaxis not ordered:: Treatment Not Indicated Patient Problems: Active and Suspected Problems (Last Updated 12/16/17 @ 22:38 by Melony Gonzalez MD) Shortness of breath (Acute) Acute respiratory failure (Acute) Severe sepsis (Acute) MSSA (methicillin susceptible Staphylococcus aureus) pneumonia (Acute) - Physical Exam General: Alert, Oriented x3, Cooperative HEENT: Atraumatic, PERRLA, EOMI, Normocephalic Neck: Supple, No JVD, Negative Carotid Bruits Lungs: Normal air movement, Wheezes - Few scattered. Cardiovascular: Regular rate, No murmurs Abdomen: Bowel Sounds Present, Soft, Non Tender Extremities: No edema, Capillary Refill Less than 3 Seconds Skin: No rashes, No breakdown Musculoskeletal: No Tenderness to Palpation of Joints or Extremities Neurological: Cranial nerves II-XII grossly intact Psych/Mental Status: Normal Affect, Appropriate Vital Signs Temp Pulse Resp BP Pulse Ox 98.8 F 64 18 147/65 H 96 12/22/17 15:55 12/22/17 16:05 12/22/17 16:05 12/22/17 15:55 12/22/17 16:05 Oxygen Delivery Method Room Air Weight: 100.65 kg Body Mass Index (BMI) 41.9 POC Glucose 12/22/17 16:43 POC Glucose 289 H Assessment/Plan Active and Suspected Problems (Last Updated 12/16/17 @ 22:38 by Melony Gonzalez MD) Shortness of breath (Acute) Acute respiratory failure (Acute) Severe sepsis (Acute) MSSA (methicillin susceptible Staphylococcus aureus) pneumonia (Acute) 72 year old female with below past medical history hospitalized for acute respiratory distress requiring intubation secondary to RSV B infection, MSSA pneumonia, complicated by atrial fibrillation, admitted to TCU with debility, here for rehabilitation, strengthening, prior to discharge home with spouse. * Debility - PT/OT. * Pain - Tylenol 1000MG Q8H PRN mild pain. * Bowel - Miralax 17GM daily, Senna/colace 2 tablets BID, Dulcolax 10MG PO daily PRN. * Pneumonia vaccination - Administer Prevnar 13 and/or Pneumovax 23 as necessary. * DVT prophylaxis - Not necessary, already on Eliquis. * Migraine - Fioricet 1 tablet BID PRN. * Asthma - Singulair 10MG daily, Albuterol 2 puffs Q4H PRN, Symbicort 160/4.5MG 2 puffs BID, Duoneb 3ML Q4HWA, [id number] 0.63MG Q4H PRN, Prednisone taper. * Atrial Fibrillation - Coreg 6.25MG BID, Amiodarone 100MG BID, Eliquis 5MG BID. * Cough - Tessalon perles 100MG TID PRN. * MSSA pneumonia - Duricef 1000MG BID thru 12/27/2017. * Hyperlipidemia - Zetia 10MG daily. * GERD - Famotidine 20MG daily. * Edema - Lasix 20MG daily. * Diabetes Mellitus II - Levemir 10 units BID, Novolog 7 units TIDAC. * Hypothyroidism - Levothyroxine 25MCG daily. * Hypokalemia - KCL 20MEQ TID.
[2017-12-22 19:31] VITALS: PULSE 67; RESP 19; O2SAT 97
[2017-12-22 21:11] LABS: Bedside Glucose 299 mg/dL (70-110)
--- NOTE | 2017-12-23 00:23 | NURSING ---
Code status discussed with pt. Pt AOx3. Pt wishes to be a DNRCC. Purple Bracelet applied
--- NOTE | 2017-12-23 01:35 | NURSING ---
Pt remained in droplet and contact precautions during shift d/t MRSA in sputum and RSV
[2017-12-23] MEDS: Amiodarone 200 MG Tablet 100 MG PO ×2 (05:13→17:17)
[2017-12-23] MEDS: APIXABAN 5 MG TABLET PO ×2 (05:13→17:18)
[2017-12-23] MEDS: Cefadroxil 500 MG CAPSULE 1000 MG PO ×2 (05:14→17:17)
[2017-12-23] MEDS: Furosemide 20 MG Tablet PO (05:14)
[2017-12-23] MEDS: Levothyroxine 25 MCG TABLET PO (05:14)
[2017-12-23] MEDS: Montelukast 10 MG Tablet PO ×2 (05:14→22:25)
[2017-12-23] MEDS: Famotidine 20 MG Tablet PO (05:14)
[2017-12-23] MEDS: Carvedilol 6.25 MG Tablet PO ×2 (05:14→17:17)
[2017-12-23] MEDS: Ezetimibe 10 MG Tablet PO ×2 (05:14→22:25)
[2017-12-23] MEDS: Polyethylene Glycol 3350 17 GM PACKET PO (05:15)
[2017-12-23] MEDS: Senna/Docusate Sodium 1 Tablet 2 TABLET PO ×2 (05:15→17:18)
[2017-12-23] MEDS: Acetaminophen 500 MG Tablet 1000 MG PO (05:16)
[2017-12-23 06:26] LABS: Hematocrit 43.1 % (37-47); Mean Corp Hgb Conc 34.8 g/gl (32-36); Mean Corpuscular Hgb 29.5 pg (27.0-32.0); Mean Corpuscular Volume 84.8 fL (81-99); Mean Platelet Vol. 10.4 fl (6.2-12.0); Platelet Count 234 K/mm3 (150-450); RBC Distribution Width CV 12.9 % (11.6-14.6); RBC Distribution Width SD 39.6 fl (35.1-43.9); Red Blood Count 5.08 M/mm3 (4.2-5.4); White Blood Count 9.2 K/mm3 (4.4-11.0)
[2017-12-23 06:30] LABS: Differential Indicated MANUAL DIFF; POSITIVE COUNT YES; POSITIVE DIFFERENTIAL YES; POSITIVE MORPHOLOGY YES
[2017-12-23 06:31] LABS: Anion Gap 7 (5-15); BUN 20 mg/dL (7-18); BUN/Creat Ratio 29.5 RATIO (10-20); Calcium,Total 8.4 mg/dL (8.5-10.1); Chloride 105 mmol/L (98-107); Creatinine, Serum 0.68 mg/dL (0.55-1.02); EST Glomerular Filtration Rate 90 mL/min (>60); Est Glom Filt Rate - Afr Amer 109 mL/min (>60); Estimated Creatinine Clearance 37.81 ml/min; Glucose 175 mg/dL (74-106); Potassium 4.2 mmol/L (3.5-5.1); Sodium Level 140 mmol/L (136-145)
[2017-12-23 06:50] LABS: Bedside Glucose 170 mg/dL (70-110)
[2017-12-23 07:00] VITALS: PULSE 56; RESP 18; O2SAT 94
[2017-12-23] MEDS: Ipratropium/Albuterol Sulfate 3 ML AMPUL.NEB INHALATION ×4 (07:00→18:40)
[2017-12-23 07:23] LABS: Lymphocyte 6 % (19-41); Metamyelocyte 2 % (0-1); Monocyte 5 % (0-10); Myelocyte 2 (0-0); Neutrophil-Band 3 % (0-5); Neutrophil-Segmented 82 % (47-70); Platelet Estimate ADEQUATE (ADEQ); Red Cell Morphology NORM C+C NORMAL (NORM C&C); Total Cells Counted 100 (MANUAL DIFF)
[2017-12-23 07:25] LABS: Absolute Lymphocyte Count 0.55 X10^3/ul (0.83-4.51); Absolute Neutrophil Count 7.8 X10^3/uL (2.0-7.7)
[2017-12-23] MEDS: predniSONE 10 MG Tablet PO (08:26)
--- NOTE | 2017-12-23 08:32 | NURSING ---
Pt remained in droplet and contact precautions during this shift d/t MRSA in sputum and RSV
--- NOTE | 2017-12-23 08:32 | NURSING ---
Dr. Jones reviewed AM labs, NNO
[2017-12-23 10:45] VITALS: PULSE 60; RESP 18
[2017-12-23] MEDS: Tuberculin,Purif.prot.deriv. 50 TU/ML Vial 5 ML ID (11:49)
[2017-12-23 11:55] LABS: Bedside Glucose 145 mg/dL (70-110)
[2017-12-23 14:30] VITALS: PULSE 62; RESP 18
--- NOTE | 2017-12-23 14:32 | NURSING ---
Pt requesting Lasix dose be increased to 40mg daily per home dose. Dr. Jones updated and N.O. received.
[2017-12-23 15:48] VITALS: BP 152/81; PULSE 65; RESP 18; TEMP 36.4; O2SAT 93
[2017-12-23 17:11] LABS: Bedside Glucose 285 mg/dL (70-110)
--- NOTE | 2017-12-23 18:05 | NURSING ---
NOTIFIED DR. POLANCO OF R' STATING SHE ONLY TAKES AMIODORONE 100MG DAILY, NOT BID D/T THYROID FUNCTION. STATES SHE HAS BEEN TAKING LOWERED DOSE SINCE AUGUST. NOTIFIED DR. POLANCO. CHANGE TO DAILY.
[2017-12-23 18:40] VITALS: PULSE 59; RESP 18
[2017-12-23 21:36] LABS: Bedside Glucose 264 mg/dL (70-110)
[2017-12-24 05:25] VITALS: PULSE 60; RESP 16
[2017-12-24] MEDS: Ipratropium/Albuterol Sulfate 3 ML AMPUL.NEB INHALATION ×4 (05:25→22:50)
[2017-12-24] MEDS: Furosemide 40 MG Tablet PO (05:54)
[2017-12-24] MEDS: Cefadroxil 500 MG CAPSULE 1000 MG PO ×2 (05:54→18:02)
[2017-12-24] MEDS: Benzonatate 100 MG Capsule PO (05:54)
[2017-12-24] MEDS: APIXABAN 5 MG TABLET PO ×2 (05:54→18:03)
[2017-12-24] MEDS: Carvedilol 6.25 MG Tablet PO ×2 (05:54→18:03)
[2017-12-24] MEDS: Levothyroxine 25 MCG TABLET PO (05:54)
[2017-12-24] MEDS: Amiodarone 200 MG Tablet 100 MG PO (05:54)
[2017-12-24] MEDS: Famotidine 20 MG Tablet PO (05:54)
[2017-12-24 07:11] LABS: Bedside Glucose 72 mg/dL (70-110)
[2017-12-24] MEDS: predniSONE 10 MG Tablet PO (09:26)
[2017-12-24 09:41] LABS: Bedside Glucose 178 mg/dL (70-110)
[2017-12-24 10:35] VITALS: PULSE 82; RESP 16
[2017-12-24 11:36] LABS: Bedside Glucose 92 mg/dL (70-110)
[2017-12-24 14:10] VITALS: PULSE 65; RESP 16
[2017-12-24 15:20] VITALS: BP 148/74; PULSE 70; RESP 20; TEMP 36.2; O2SAT 92
[2017-12-24 16:41] LABS: Bedside Glucose 290 mg/dL (70-110)
[2017-12-24] MEDS: Montelukast 10 MG Tablet PO (18:03)
[2017-12-24 18:59] VITALS: PULSE 64; RESP 16; O2SAT 95
[2017-12-24 21:01] LABS: Bedside Glucose 243 mg/dL (70-110)
[2017-12-24] MEDS: Ezetimibe 10 MG Tablet PO (21:25)
[2017-12-24 22:54] VITALS: PULSE 66; RESP 16
--- NOTE | 2017-12-25 00:31 | NURSING ---
Pt remains in contact and droplet precautions this shift dt MRSA in sputum and RSV. All care provided in pt room.
[2017-12-25] MEDS: Amiodarone 200 MG Tablet 100 MG PO (05:19)
[2017-12-25] MEDS: APIXABAN 5 MG TABLET PO ×2 (05:19→17:40)
[2017-12-25] MEDS: Furosemide 40 MG Tablet PO (05:19)
[2017-12-25] MEDS: Famotidine 20 MG Tablet PO (05:19)
[2017-12-25] MEDS: Carvedilol 6.25 MG Tablet PO ×2 (05:19→17:40)
[2017-12-25] MEDS: Cefadroxil 500 MG CAPSULE 1000 MG PO ×2 (05:19→17:40)
[2017-12-25] MEDS: Levothyroxine 25 MCG TABLET PO (05:19)
[2017-12-25 07:10] LABS: Bedside Glucose 76 mg/dL (70-110)
[2017-12-25 08:26] VITALS: O2SAT 94
[2017-12-25] MEDS: predniSONE 10 MG Tablet PO (08:42)
--- NOTE | 2017-12-25 08:45 | NURSING ---
DR. POLANCO REVIEWED BLOOD SUGARS, N.O. TO HOLD BREAKFAST NOVOLOG DOSE, PT UPDATED, DENIES SYMPTOMS OF HYPOGLYCEMIA, STATES I ATE A GREAT BREAKFAST. CONT TO MONITOR.
[2017-12-25] MEDS: Acetaminophen 500 MG Tablet 1000 MG PO (10:11)
[2017-12-25 11:11] LABS: Bedside Glucose 171 mg/dL (70-110)
--- NOTE | 2017-12-25 12:20 | PCM.PN.RX ---
<Brock Hartman D - Last Filed: 12/25/17 12:20> Progress Note - Pharmacy Subjective: [facility] Admission Objective: Allergies Beta-Blockers (Beta-Adrenergic Bloc Allergy (Verified 12/16/17 20:27) Shortness of breath doxycycline Allergy (Verified 12/16/17 20:27) Hives Penicillins Allergy (Verified 12/16/17 20:27) Rash red dye Allergy (Verified 12/16/17 20:27) Unknown Sulfa (Sulfonamide Antibiotics) Allergy (Verified 12/16/17 20:27) Rash theophylline Allergy (Verified 12/16/17 20:27) Rash codeine Adverse Reaction (Verified 12/16/17 20:27) Nausea Home Medications Medication Instructions Recorded Budesonide/Formoterol 160/4.5 2 puff INHALATION BID PRN 11/09/15 [Symbicort 160/4.5 Mcg Inhaler (SP)] Montelukast [Singulair] 10 mg PO DAILY 11/09/15 Acetaminophen [Tylenol Tablet] 650 mg PO Q8H PRN PRN #0 tab 12/04/15 Acetaminophen/Butalbital/Caffe 1 tab PO BID PRN PRN 03/26/17 [Fioricet] Ezetimibe [Zetia] 10 mg PO DAILY 03/26/17 Potassium Chloride [K-Dur] 20 meq PO TID 03/26/17 amiodarone 200 mg tablet 100 mg PO BID tab 08/22/17 benzonatate 100 mg capsule 100 mg PO Q6H 10/19/17 levalbuterol 0.63 mg/3 mL solution 0.63 mg INHALATION Q4H PRN #120 10/28/17 for nebulization vial benzonatate 100 mg capsule 100 mg PO TID PRN #30 cap 12/15/17 Albuterol IH (ProAir) [Proair Hfa] 2 puff INHALATION Q4H PRN PRN 12/17/17 Levothyroxine [Synthroid] 25 mcg PO DAILY 12/17/17 Apixaban [Eliquis] 5 mg PO BID 12/22/17 Carvedilol [Coreg (Beta Daniel)] 6.25 mg PO BID 12/22/17 Cefadroxil [Duricef] 1,000 mg PO BID 12/22/17 Famotidine [Pepcid] 20 mg PO BID 12/22/17 Furosemide [Lasix] 40 mg PO DAILY 12/22/17 Insulin Aspart [Novolog Flexpen] See Protocol SC ACHS 12/22/17 Insulin Detemir [Levemir FlexPen] 10 units SC 1100,2200 12/22/17 Ipratropium/Albuterol Sulfate 3 ml INHALATION Q4HWA.RT 12/22/17 [Duoneb] Prednisone See Taper PO UD 12/22/17 Senna/Docusate Sodium [Senokot-S] 1 tablet PO BID 12/22/17 Current Medications Generic Name Dose Route Start Last Admin Trade Name Freq PRN Reason Stop Dose Admin Acetaminophen 1,000 mg 12/22/17 18:29 12/25/17 10:11 Tylenol PO 1,000 mg Q8H PRN PRN Administration MILD PAIN (1-3/10) Acetaminophen/Butalbital/Caffeine 1 tablet 12/22/17 18:18 Fioricet PO BID PRN PRN MIGRAINE SYMPTOMS Albuterol Sulfate 2 puff 12/22/17 13:35 12/23/17 00:22 Ventolin Hfa (Sp) INHALATION 2 inhaler Q4H PRN PRN Administration Asthma Albuterol Sulfate 1 puff 12/22/17 22:00 Ventolin Hfa (Sp) INHALATION Q4H PRN PRN Amiodarone HCl 100 mg 12/24/17 06:00 12/25/17 05:19 Cordarone PO 100 mg DAILY TRACIE Administration Apixaban 5 mg 12/22/17 18:00 12/25/17 05:19 Eliquis PO 5 mg BID TRACIE Administration Benzonatate 100 mg 12/22/17 13:35 12/24/17 05:54 Tessalon Perle PO 100 mg TID PRN Administration cough Bisacodyl 10 mg 12/22/17 18:28 Dulcolax PO DAILY PRN Constipation Carvedilol 6.25 mg 12/22/17 18:00 12/25/17 05:19 Coreg PO 6.25 mg BID TRACIE Administration Cefadroxil 1,000 mg 12/22/17 18:00 12/25/17 05:19 Duricef PO 12/27/17 06:01 1,000 mg BID TRACIE Administration Ezetimibe 10 mg 12/23/17 22:00 12/24/17 21:25 Zetia PO 10 mg DAILY@2200 TRACIE Administration Famotidine 20 mg 12/23/17 06:00 12/25/17 05:19 Pepcid PO 20 mg DAILY TRACIE Administration Furosemide 40 mg 12/23/17 14:32 12/25/17 05:19 Lasix PO 40 mg DAILY TRACIE Administration Insulin Aspart 13 units 12/23/17 20:09 12/25/17 11:15 Novolog Flexpen ([facility]) SC 13 u TIDAC TRACIE Administration Insulin Detemir 20 units 12/23/17 20:09 12/25/17 11:14 Levemir ([facility]) SC 20 units 1100,2200 TRACIE Administration Levothyroxine Sodium 25 mcg 12/23/17 06:00 12/25/17 05:19 Synthroid PO 25 mcg DAILY [facility] Administration Montelukast Sodium 10 mg 12/23/17 17:00 12/24/17 18:03 Singulair PO 10 mg DAILY@1700 TRACIE Administration Polyethylene Glycol 17 gm 12/23/17 06:00 12/25/17 05:19 Miralax PO Not Given DAILY [facility] Potassium Chloride 20 meq 12/22/17 16:30 12/25/17 05:19 K-Dur PO 20 meq TID [facility] Administration Prednisone 40 mg 12/22/17 16:30 12/25/17 08:42 PO 01/03/18 16:29 40 mg DAILY@0800 [facility] Administration Taper Fluticasone/Salmeterol 1 puff 12/23/17 06:00 12/25/17 05:18 Advair 250/50 Mcg Diskus INHALATION 1 puff BID [facility] Administration Senna/Docusate Sodium 2 tablet 12/22/17 18:29 12/25/17 05:19 Senokot-S, [place]-Colace PO Not Given BID [facility] Tuberculin PPD 5 tu 12/30/17 10:00 Tubersol, Aplisol, Ppd ID 12/30/17 10:01 X1 ONE Problem List (Last Updated 12/16/17 @ 22:38 by Melony Gonzalez MD) Shortness of breath (Acute) Acute respiratory failure (Acute) Severe sepsis (Acute) MSSA (methicillin susceptible Staphylococcus aureus) pneumonia (Acute) Hypokalemia (Chronic) Vital Signs Temp Pulse Resp BP Pulse Ox 97.2 F L 66 16 148/74 H 94 12/24/17 15:20 12/24/17 22:54 12/24/17 22:54 12/24/17 15:20 12/25/17 08:26 Oxygen Delivery Method Room Air Weight: 100.65 kg Body Mass Index (BMI) 41.9 Sodium 140 mmol/L (136-145) 12/23/17 05:30 Potassium 4.2 mmol/L (3.5-5.1) 12/23/17 05:30 Chloride 105 mmol/L (98-107) 12/23/17 05:30 Carbon Dioxide 28.0 mmol/L (21.0-32.0) 12/23/17 05:30 Anion Gap 7 (5-15) 12/23/17 05:30 BUN 20 mg/dL (7-18) H 12/23/17 05:30 Creatinine 0.68 mg/dL (0.55-1.02) 12/23/17 05:30 Est GFR (MDRD) Af Amer 109 mL/min (>60) 12/23/17 05:30 Est GFR (MDRD) Non-Af 90 mL/min (>60) 12/23/17 05:30 BUN/Creatinine Ratio 29.5 RATIO (10-20) H 12/23/17 05:30 Glucose 175 mg/dL (74-106) H 12/23/17 05:30 Assessment/Plan: 1) Pain APAP for mild pain, Fioricet for migraine. Continue to monitor prn medication use, daily pain scores. 2) Asthma/Pulm Albuterol inh prn, benzonatate for cough, Advair inh twice daily, montelukast, prednisone. Continue to monitor prn medication use, for shortness of breath. 3) AFib Amiodarone, apixaban, carvedilol. Avg BP within goal range, HR wnl, Hgb/Hct at baseline. Continue to monitor BP/HR, renal function, s/s bleeding/clot. 4) ID Cefadroxil for MSSA pneumonia until 12/27. WBC wnl, afebrile. Continue to monitor s/s infection. 5) GI Famotidine daily. Continue to monitor s/s GI distress. 6) HLD Ezetimibe daily. Continue to monitor lipids. 7) Edema Furosemide/KCl. K wnl, BUN/SCr at baseline. Continue to monitor electrolytes, renal function. 8) DM2 Insulin detemir twice daily, aspart with meals. BGT avg > 200 mg/dL. Continue to monitor BGT, s/s hyper/hypoglycemia. 9) Hypothyroidism Levothyroxine daily. Continue to monitor s/s hyper/hypothyroidism. Psychotropic Medications: None Unnecessary Medications: None Bowel Regimen: ) Senna/s, PEG, prn bisacodyl. Continue to monitor prn medication use, for constipation/diarrhea. Date of Note:: 12/25/17 - Provider Comments Provider responsibility: Provider responsible to enter orders to implement recommendations <Haider Jones Chi - Last Filed: 12/25/17 13:33> Progress Note - Pharmacy Subjective: [] Objective: Allergies Beta-Blockers (Beta-Adrenergic Bloc Allergy (Verified 12/16/17 20:27) Shortness of breath doxycycline Allergy (Verified 12/16/17 20:27) Hives Penicillins Allergy (Verified 12/16/17 20:27) Rash red dye Allergy (Verified 12/16/17 20:27) Unknown Sulfa (Sulfonamide Antibiotics) Allergy (Verified 12/16/17 20:27) Rash theophylline Allergy (Verified 12/16/17 20:27) Rash codeine Adverse Reaction (Verified 12/16/17 20:27) Nausea Home Medications Medication Instructions Recorded Budesonide/Formoterol 160/4.5 2 puff INHALATION BID PRN 11/09/15 [Symbicort 160/4.5 Mcg Inhaler (SP)] Montelukast [Singulair] 10 mg PO DAILY 11/09/15 Acetaminophen [Tylenol Tablet] 650 mg PO Q8H PRN PRN #0 tab 12/04/15 Acetaminophen/Butalbital/Caffe 1 tab PO BID PRN PRN 03/26/17 [Fioricet] Ezetimibe [Zetia] 10 mg PO DAILY 03/26/17 Potassium Chloride [K-Dur] 20 meq PO TID 03/26/17 amiodarone 200 mg tablet 100 mg PO DAILY tab 08/22/17 benzonatate 100 mg capsule 100 mg PO Q6H 10/19/17 levalbuterol 0.63 mg/3 mL solution 0.63 mg INHALATION Q4H PRN #120 10/28/17 for nebulization vial benzonatate 100 mg capsule 100 mg PO TID PRN #30 cap 12/15/17 Albuterol IH (ProAir) [Proair Hfa] 2 puff INHALATION Q4H PRN PRN 12/17/17 Levothyroxine [Synthroid] 25 mcg PO DAILY 12/17/17 Apixaban [Eliquis] 5 mg PO BID 12/22/17 Carvedilol [Coreg (Beta Daniel)] 6.25 mg PO BID 12/22/17 Cefadroxil [Duricef] 1,000 mg PO BID 12/22/17 Famotidine [Pepcid] 20 mg PO BID 12/22/17 Furosemide [Lasix] 40 mg PO DAILY 12/22/17 Insulin Aspart [Novolog Flexpen] See Protocol SC ACHS 12/22/17 Insulin Detemir [Levemir FlexPen] 10 units SC 1100,2200 12/22/17 Ipratropium/Albuterol Sulfate 3 ml INHALATION Q4HWA.RT 12/22/17 [Duoneb] Prednisone See Taper PO UD 12/22/17 Senna/Docusate Sodium [Senokot-S] 1 tablet PO BID 12/22/17 Current Medications Generic Name Dose Route Start Last Admin Trade Name Freq PRN Reason Stop Dose Admin Acetaminophen 1,000 mg 12/22/17 18:29 12/25/17 10:11 Tylenol PO 1,000 mg Q8H PRN PRN Administration MILD PAIN (1-3/10) Acetaminophen/Butalbital/Caffeine 1 tablet 12/22/17 18:18 Fioricet PO BID PRN PRN MIGRAINE SYMPTOMS Albuterol Sulfate 2 puff 12/22/17 13:35 12/23/17 00:22 Ventolin Hfa (Sp) INHALATION 2 inhaler Q4H PRN PRN Administration Asthma Albuterol Sulfate 1 puff 12/22/17 22:00 Ventolin Hfa (Sp) INHALATION Q4H PRN PRN Amiodarone HCl 100 mg 12/24/17 06:00 12/25/17 05:19 Cordarone PO 100 mg DAILY TRACIE Administration Apixaban 5 mg 12/22/17 18:00 12/25/17 05:19 Eliquis PO 5 mg BID TRACIE Administration Benzonatate 100 mg 12/22/17 13:35 12/24/17 05:54 Tessalon Perle PO 100 mg TID PRN Administration cough Bisacodyl 10 mg 12/22/17 18:28 Dulcolax PO DAILY PRN Constipation Carvedilol 6.25 mg 12/22/17 18:00 12/25/17 05:19 Coreg PO 6.25 mg BID TRACIE Administration Cefadroxil 1,000 mg 12/22/17 18:00 12/25/17 05:19 Duricef PO 12/27/17 06:01 1,000 mg BID TRACIE Administration Ezetimibe 10 mg 12/23/17 22:00 12/24/17 21:25 Zetia PO 10 mg DAILY@2200 [facility] Administration Famotidine 20 mg 12/23/17 06:00 12/25/17 05:19 Pepcid PO 20 mg DAILY TRACIE Administration Furosemide 40 mg 12/23/17 14:32 12/25/17 05:19 Lasix PO 40 mg DAILY TRACIE Administration Insulin Aspart 13 units 12/23/17 20:09 12/25/17 11:15 Novolog Flexpen ([facility]) SC 13 u TIDAC [facility] Administration Insulin Detemir 20 units 12/23/17 20:09 12/25/17 11:14 Levemir ([facility]) SC 20 units 1100,2200 [facility] Administration Levothyroxine Sodium 25 mcg 12/23/17 06:00 12/25/17 05:19 Synthroid PO 25 mcg DAILY [facility] Administration Montelukast Sodium 10 mg 12/23/17 17:00 12/24/17 18:03 Singulair PO 10 mg DAILY@1700 [facility] Administration Polyethylene Glycol 17 gm 12/23/17 06:00 12/25/17 05:19 Miralax PO Not Given DAILY [facility] Potassium Chloride 20 meq 12/22/17 16:30 12/25/17 13:22 K-Dur PO 20 meq TID [facility] Administration Prednisone 40 mg 12/22/17 16:30 12/25/17 08:42 PO 01/03/18 16:29 40 mg DAILY@0800 [facility] Administration Taper Fluticasone/Salmeterol 1 puff 12/23/17 06:00 12/25/17 05:18 Advair 250/50 Mcg Diskus INHALATION 1 puff BID [facility] Administration Senna/Docusate Sodium 2 tablet 12/22/17 18:29 12/25/17 05:19 Senokot-S, [place]-Colace PO Not Given BID [facility] Tuberculin PPD 5 tu 12/30/17 10:00 Tubersol, Aplisol, Ppd ID 12/30/17 10:01 X1 ONE Problem List (Last Updated 12/16/17 @ 22:38 by Melony Gonzalez MD) Shortness of breath (Acute) Acute respiratory failure (Acute) Severe sepsis (Acute) MSSA (methicillin susceptible Staphylococcus aureus) pneumonia (Acute) Hypokalemia (Chronic) Vital Signs Temp Pulse Resp BP Pulse Ox 97.2 F L 66 16 148/74 H 94 12/24/17 15:20 12/24/17 22:54 12/24/17 22:54 12/24/17 15:20 12/25/17 08:26 Oxygen Delivery Method Room Air Weight: 100.65 kg Body Mass Index (BMI) 41.9 Sodium 140 mmol/L (136-145) 12/23/17 05:30 Potassium 4.2 mmol/L (3.5-5.1) 12/23/17 05:30 Chloride 105 mmol/L (98-107) 12/23/17 05:30 Carbon Dioxide 28.0 mmol/L (21.0-32.0) 12/23/17 05:30 Anion Gap 7 (5-15) 12/23/17 05:30 BUN 20 mg/dL (7-18) H 12/23/17 05:30 Creatinine 0.68 mg/dL (0.55-1.02) 12/23/17 05:30 Est GFR (MDRD) Af Amer 109 mL/min (>60) 12/23/17 05:30 Est GFR (MDRD) Non-Af 90 mL/min (>60) 12/23/17 05:30 BUN/Creatinine Ratio 29.5 RATIO (10-20) H 12/23/17 05:30 Glucose 175 mg/dL (74-106) H 12/23/17 05:30 Assessment/Plan: Psychotropic Medications: Unnecessary Medications: Bowel Regimen: - Provider Comments Provider responsibility: Provider responsible to enter orders to implement recommendations Provider Comments to Recommendations by Pharmacy: Agree
--- NOTE | 2017-12-25 12:28 | PHA.CONS_ITS ---
<Brock Hartman D - Last Filed: 12/25/17 12:20> Progress Note - Pharmacy Subjective: TCU Admission Objective: Allergies Beta-Blockers (Beta-Adrenergic Bloc Allergy (Verified 12/16/17 20:27) Shortness of breath doxycycline Allergy (Verified 12/16/17 20:27) Hives Penicillins Allergy (Verified 12/16/17 20:27) Rash red dye Allergy (Verified 12/16/17 20:27) Unknown Sulfa (Sulfonamide Antibiotics) Allergy (Verified 12/16/17 20:27) Rash theophylline Allergy (Verified 12/16/17 20:27) Rash codeine Adverse Reaction (Verified 12/16/17 20:27) Nausea Home Medications Medication Instructions Recorded Budesonide/Formoterol 160/4.5 2 puff INHALATION BID PRN 11/09/15 [Symbicort 160/4.5 Mcg Inhaler (SP)] Montelukast [Singulair] 10 mg PO DAILY 11/09/15 Acetaminophen [Tylenol Tablet] 650 mg PO Q8H PRN PRN #0 tab 12/04/15 Acetaminophen/Butalbital/Caffe 1 tab PO BID PRN PRN 03/26/17 [Fioricet] Ezetimibe [Zetia] 10 mg PO DAILY 03/26/17 Potassium Chloride [K-Dur] 20 meq PO TID 03/26/17 amiodarone 200 mg tablet 100 mg PO BID tab 08/22/17 benzonatate 100 mg capsule 100 mg PO Q6H 10/19/17 levalbuterol 0.63 mg/3 mL solution 0.63 mg INHALATION Q4H PRN #120 10/28/17 for nebulization vial benzonatate 100 mg capsule 100 mg PO TID PRN #30 cap 12/15/17 Albuterol IH (ProAir) [Proair Hfa] 2 puff INHALATION Q4H PRN PRN 12/17/17 Levothyroxine [Synthroid] 25 mcg PO DAILY 12/17/17 Apixaban [Eliquis] 5 mg PO BID 12/22/17 Carvedilol [Coreg (Beta Daniel)] 6.25 mg PO BID 12/22/17 Cefadroxil [Duricef] 1,000 mg PO BID 12/22/17 Famotidine [Pepcid] 20 mg PO BID 12/22/17 Furosemide [Lasix] 40 mg PO DAILY 12/22/17 Insulin Aspart [Novolog Flexpen] See Protocol SC ACHS 12/22/17 Insulin Detemir [Levemir FlexPen] 10 units SC 1100,2200 12/22/17 Ipratropium/Albuterol Sulfate 3 ml INHALATION Q4HWA.RT 12/22/17 [Duoneb] Prednisone See Taper PO UD 12/22/17 Senna/Docusate Sodium [Senokot-S] 1 tablet PO BID 12/22/17 Current Medications Generic Name Dose Route Start Last Admin Trade Name Freq PRN Reason Stop Dose Admin Acetaminophen 1,000 mg 12/22/17 18:29 12/25/17 10:11 Tylenol PO 1,000 mg Q8H PRN PRN Administration MILD PAIN (1-3/10) Acetaminophen/Butalbital/Caffeine 1 tablet 12/22/17 18:18 Fioricet PO BID PRN PRN MIGRAINE SYMPTOMS Albuterol Sulfate 2 puff 12/22/17 13:35 12/23/17 00:22 Ventolin Hfa (Sp) INHALATION 2 inhaler Q4H PRN PRN Administration Asthma Albuterol Sulfate 1 puff 12/22/17 22:00 Ventolin Hfa (Sp) INHALATION Q4H PRN PRN Amiodarone HCl 100 mg 12/24/17 06:00 12/25/17 05:19 Cordarone PO 100 mg DAILY TRACIE Administration Apixaban 5 mg 12/22/17 18:00 12/25/17 05:19 Eliquis PO 5 mg BID TRACIE Administration Benzonatate 100 mg 12/22/17 13:35 12/24/17 05:54 Tessalon Perle PO 100 mg TID PRN Administration cough Bisacodyl 10 mg 12/22/17 18:28 Dulcolax PO DAILY PRN Constipation Carvedilol 6.25 mg 12/22/17 18:00 12/25/17 05:19 Coreg PO 6.25 mg BID TRACIE Administration Cefadroxil 1,000 mg 12/22/17 18:00 12/25/17 05:19 Duricef PO 12/27/17 06:01 1,000 mg BID TRACIE Administration Ezetimibe 10 mg 12/23/17 22:00 12/24/17 21:25 Zetia PO 10 mg DAILY@2200 TRACIE Administration Famotidine 20 mg 12/23/17 06:00 12/25/17 05:19 Pepcid PO 20 mg DAILY TRACIE Administration Furosemide 40 mg 12/23/17 14:32 12/25/17 05:19 Lasix PO 40 mg DAILY TRACIE Administration Insulin Aspart 13 units 12/23/17 20:09 12/25/17 11:15 Novolog Flexpen ([facility]) SC 13 u TIDAC TRACIE Administration Insulin Detemir 20 units 12/23/17 20:09 12/25/17 11:14 Levemir ([facility]) SC 20 units 1100,2200 TRACIE Administration Levothyroxine Sodium 25 mcg 12/23/17 06:00 12/25/17 05:19 Synthroid PO 25 mcg DAILY [facility] Administration Montelukast Sodium 10 mg 12/23/17 17:00 12/24/17 18:03 Singulair PO 10 mg DAILY@1700 TRACIE Administration Polyethylene Glycol 17 gm 12/23/17 06:00 12/25/17 05:19 Miralax PO Not Given DAILY [facility] Potassium Chloride 20 meq 12/22/17 16:30 12/25/17 05:19 K-Dur PO 20 meq TID [facility] Administration Prednisone 40 mg 12/22/17 16:30 12/25/17 08:42 PO 01/03/18 16:29 40 mg DAILY@0800 [facility] Administration Taper Fluticasone/Salmeterol 1 puff 12/23/17 06:00 12/25/17 05:18 Advair 250/50 Mcg Diskus INHALATION 1 puff BID [facility] Administration Senna/Docusate Sodium 2 tablet 12/22/17 18:29 12/25/17 05:19 Senokot-S, [place]-Colace PO Not Given BID [facility] Tuberculin PPD 5 tu 12/30/17 10:00 Tubersol, Aplisol, Ppd ID 12/30/17 10:01 X1 ONE Problem List (Last Updated 12/16/17 @ 22:38 by Melony Gonzalez MD) Shortness of breath (Acute) Acute respiratory failure (Acute) Severe sepsis (Acute) MSSA (methicillin susceptible Staphylococcus aureus) pneumonia (Acute) Hypokalemia (Chronic) Vital Signs Temp Pulse Resp BP Pulse Ox 97.2 F L 66 16 148/74 H 94 12/24/17 15:20 12/24/17 22:54 12/24/17 22:54 12/24/17 15:20 12/25/17 08:26 Oxygen Delivery Method Room Air Weight: 100.65 kg Body Mass Index (BMI) 41.9 Sodium 140 mmol/L (136-145) 12/23/17 05:30 Potassium 4.2 mmol/L (3.5-5.1) 12/23/17 05:30 Chloride 105 mmol/L (98-107) 12/23/17 05:30 Carbon Dioxide 28.0 mmol/L (21.0-32.0) 12/23/17 05:30 Anion Gap 7 (5-15) 12/23/17 05:30 BUN 20 mg/dL (7-18) H 12/23/17 05:30 Creatinine 0.68 mg/dL (0.55-1.02) 12/23/17 05:30 Est GFR (MDRD) Af Amer 109 mL/min (>60) 12/23/17 05:30 Est GFR (MDRD) Non-Af 90 mL/min (>60) 12/23/17 05:30 BUN/Creatinine Ratio 29.5 RATIO (10-20) H 12/23/17 05:30 Glucose 175 mg/dL (74-106) H 12/23/17 05:30 Assessment/Plan: 1) Pain APAP for mild pain, Fioricet for migraine. Continue to monitor prn medication use, daily pain scores. 2) Asthma/Pulm Albuterol inh prn, benzonatate for cough, Advair inh twice daily, montelukast , prednisone. Continue to monitor prn medication use, for shortness of breath. 3) AFib Amiodarone, apixaban, carvedilol. Avg BP within goal range, HR wnl, Hgb/Hct at baseline. Continue to monitor BP/HR, renal function, s/s bleeding/clot. 4) ID Cefadroxil for MSSA pneumonia until 12/27. WBC wnl, afebrile. Continue to monitor s/s infection. 5) GI Famotidine daily. Continue to monitor s/s GI distress. 6) HLD Ezetimibe daily. Continue to monitor lipids. 7) Edema Furosemide/KCl. K wnl, BUN/SCr at baseline. Continue to monitor electrolytes , renal function. 8) DM2 Insulin detemir twice daily, aspart with meals. BGT avg > 200 mg/dL. Continue to monitor BGT, s/s hyper/hypoglycemia. 9) Hypothyroidism Levothyroxine daily. Continue to monitor s/s hyper/hypothyroidism. Psychotropic Medications: None Unnecessary Medications: None Bowel Regimen: ) Senna/s, PEG, prn bisacodyl. Continue to monitor prn medication use, for constipation/diarrhea. Date of Note:: 12/25/17 - Provider Comments Provider responsibility: Provider responsible to enter orders to implement recommendations <Haider Jones Chi - Last Filed: 12/25/17 13:33> Progress Note - Pharmacy Subjective: [] Objective: Allergies Beta-Blockers (Beta-Adrenergic Bloc Allergy (Verified 12/16/17 20:27) Shortness of breath doxycycline Allergy (Verified 12/16/17 20:27) Hives Penicillins Allergy (Verified 12/16/17 20:27) Rash red dye Allergy (Verified 12/16/17 20:27) Unknown Sulfa (Sulfonamide Antibiotics) Allergy (Verified 12/16/17 20:27) Rash theophylline Allergy (Verified 12/16/17 20:27) Rash codeine Adverse Reaction (Verified 12/16/17 20:27) Nausea Home Medications Medication Instructions Recorded Budesonide/Formoterol 160/4.5 2 puff INHALATION BID PRN 11/09/15 [Symbicort 160/4.5 Mcg Inhaler (SP)] Montelukast [Singulair] 10 mg PO DAILY 11/09/15 Acetaminophen [Tylenol Tablet] 650 mg PO Q8H PRN PRN #0 tab 12/04/15 Acetaminophen/Butalbital/Caffe 1 tab PO BID PRN PRN 03/26/17 [Fioricet] Ezetimibe [Zetia] 10 mg PO DAILY 03/26/17 Potassium Chloride [K-Dur] 20 meq PO TID 03/26/17 amiodarone 200 mg tablet 100 mg PO DAILY tab 08/22/17 benzonatate 100 mg capsule 100 mg PO Q6H 10/19/17 levalbuterol 0.63 mg/3 mL solution 0.63 mg INHALATION Q4H PRN #120 10/28/17 for nebulization vial benzonatate 100 mg capsule 100 mg PO TID PRN #30 cap 12/15/17 Albuterol IH (ProAir) [Proair Hfa] 2 puff INHALATION Q4H PRN PRN 12/17/17 Levothyroxine [Synthroid] 25 mcg PO DAILY 12/17/17 Apixaban [Eliquis] 5 mg PO BID 12/22/17 Carvedilol [Coreg (Beta Daniel)] 6.25 mg PO BID 12/22/17 Cefadroxil [Duricef] 1,000 mg PO BID 12/22/17 Famotidine [Pepcid] 20 mg PO BID 12/22/17 Furosemide [Lasix] 40 mg PO DAILY 12/22/17 Insulin Aspart [Novolog Flexpen] See Protocol SC ACHS 12/22/17 Insulin Detemir [Levemir FlexPen] 10 units SC 1100,2200 12/22/17 Ipratropium/Albuterol Sulfate 3 ml INHALATION Q4HWA.RT 12/22/17 [Duoneb] Prednisone See Taper PO UD 12/22/17 Senna/Docusate Sodium [Senokot-S] 1 tablet PO BID 12/22/17 Current Medications Generic Name Dose Route Start Last Admin Trade Name Freq PRN Reason Stop Dose Admin Acetaminophen 1,000 mg 12/22/17 18:29 12/25/17 10:11 Tylenol PO 1,000 mg Q8H PRN PRN Administration MILD PAIN (1-3/10) Acetaminophen/Butalbital/Caffeine 1 tablet 12/22/17 18:18 Fioricet PO BID PRN PRN MIGRAINE SYMPTOMS Albuterol Sulfate 2 puff 12/22/17 13:35 12/23/17 00:22 Ventolin Hfa (Sp) INHALATION 2 inhaler Q4H PRN PRN Administration Asthma Albuterol Sulfate 1 puff 12/22/17 22:00 Ventolin Hfa (Sp) INHALATION Q4H PRN PRN Amiodarone HCl 100 mg 12/24/17 06:00 12/25/17 05:19 Cordarone PO 100 mg DAILY TRACIE Administration Apixaban 5 mg 12/22/17 18:00 12/25/17 05:19 Eliquis PO 5 mg BID TRACIE Administration Benzonatate 100 mg 12/22/17 13:35 12/24/17 05:54 Tessalon Perle PO 100 mg TID PRN Administration cough Bisacodyl 10 mg 12/22/17 18:28 Dulcolax PO DAILY PRN Constipation Carvedilol 6.25 mg 12/22/17 18:00 12/25/17 05:19 Coreg PO 6.25 mg BID TRACIE Administration Cefadroxil 1,000 mg 12/22/17 18:00 12/25/17 05:19 Duricef PO 12/27/17 06:01 1,000 mg BID TRACIE Administration Ezetimibe 10 mg 12/23/17 22:00 12/24/17 21:25 Zetia PO 10 mg DAILY@2200 [facility] Administration Famotidine 20 mg 12/23/17 06:00 12/25/17 05:19 Pepcid PO 20 mg DAILY TRACIE Administration Furosemide 40 mg 12/23/17 14:32 12/25/17 05:19 Lasix PO 40 mg DAILY TRACIE Administration Insulin Aspart 13 units 12/23/17 20:09 12/25/17 11:15 Novolog Flexpen ([facility]) SC 13 u TIDAC [facility] Administration Insulin Detemir 20 units 12/23/17 20:09 12/25/17 11:14 Levemir ([facility]) SC 20 units 1100,2200 [facility] Administration Levothyroxine Sodium 25 mcg 12/23/17 06:00 12/25/17 05:19 Synthroid PO 25 mcg DAILY [facility] Administration Montelukast Sodium 10 mg 12/23/17 17:00 12/24/17 18:03 Singulair PO 10 mg DAILY@1700 [facility] Administration Polyethylene Glycol 17 gm 12/23/17 06:00 12/25/17 05:19 Miralax PO Not Given DAILY [facility] Potassium Chloride 20 meq 12/22/17 16:30 12/25/17 13:22 K-Dur PO 20 meq TID [facility] Administration Prednisone 40 mg 12/22/17 16:30 12/25/17 08:42 PO 01/03/18 16:29 40 mg DAILY@0800 [facility] Administration Taper Fluticasone/Salmeterol 1 puff 12/23/17 06:00 12/25/17 05:18 Advair 250/50 Mcg Diskus INHALATION 1 puff BID [facility] Administration Senna/Docusate Sodium 2 tablet 12/22/17 18:29 12/25/17 05:19 Senokot-S, [place]-Colace PO Not Given BID [facility] Tuberculin PPD 5 tu 12/30/17 10:00 Tubersol, Aplisol, Ppd ID 12/30/17 10:01 X1 ONE Problem List (Last Updated 12/16/17 @ 22:38 by Melony Gonzalez MD) Shortness of breath (Acute) Acute respiratory failure (Acute) Severe sepsis (Acute) MSSA (methicillin susceptible Staphylococcus aureus) pneumonia (Acute) Hypokalemia (Chronic) Vital Signs Temp Pulse Resp BP Pulse Ox 97.2 F L 66 16 148/74 H 94 12/24/17 15:20 12/24/17 22:54 12/24/17 22:54 12/24/17 15:20 12/25/17 08:26 Oxygen Delivery Method Room Air Weight: 100.65 kg Body Mass Index (BMI) 41.9 Sodium 140 mmol/L (136-145) 12/23/17 05:30 Potassium 4.2 mmol/L (3.5-5.1) 12/23/17 05:30 Chloride 105 mmol/L (98-107) 12/23/17 05:30 Carbon Dioxide 28.0 mmol/L (21.0-32.0) 12/23/17 05:30 Anion Gap 7 (5-15) 12/23/17 05:30 BUN 20 mg/dL (7-18) H 12/23/17 05:30 Creatinine 0.68 mg/dL (0.55-1.02) 12/23/17 05:30 Est GFR (MDRD) Af Amer 109 mL/min (>60) 12/23/17 05:30 Est GFR (MDRD) Non-Af 90 mL/min (>60) 12/23/17 05:30 BUN/Creatinine Ratio 29.5 RATIO (10-20) H 12/23/17 05:30 Glucose 175 mg/dL (74-106) H 12/23/17 05:30 Assessment/Plan: Psychotropic Medications: Unnecessary Medications: Bowel Regimen: - Provider Comments Provider responsibility: Provider responsible to enter orders to implement recommendations Provider Comments to Recommendations by Pharmacy: Agree
--- NOTE | 2017-12-25 13:13 | NURSING ---
Pt remained in droplet and contact precautions during this shift d/t MRSA in sputum and RSV
[2017-12-25 15:12] VITALS: BP 120/49; PULSE 63; RESP 16; TEMP 36.1
[2017-12-25 17:15] LABS: Bedside Glucose 233 mg/dL (70-110)
[2017-12-25] MEDS: Senna/Docusate Sodium 1 Tablet 2 TABLET PO (17:39)
[2017-12-25] MEDS: Montelukast 10 MG Tablet PO (17:40)
[2017-12-25 20:55] LABS: Bedside Glucose 188 mg/dL (70-110)
[2017-12-25] MEDS: Ezetimibe 10 MG Tablet PO (21:06)
--- NOTE | 2017-12-25 23:22 | NURSING ---
Per Report from JOSE M Vieyra, patient's tongue is coated and very painful. Patient states that nystatin Swish and Swallow has helped in the past. Dr. Jones notified. New orders given.
[2017-12-26] MEDS: Carvedilol 6.25 MG Tablet PO ×2 (05:53→17:59)
[2017-12-26] MEDS: Amiodarone 200 MG Tablet 100 MG PO (05:53)
[2017-12-26] MEDS: Cefadroxil 500 MG CAPSULE 1000 MG PO ×2 (05:54→17:59)
[2017-12-26] MEDS: Furosemide 40 MG Tablet PO (05:54)
[2017-12-26] MEDS: APIXABAN 5 MG TABLET PO ×2 (05:54→18:00)
[2017-12-26] MEDS: NYSTATIN 500,000 UNIT/5 ML UDC 500000 UNIT PO ×4 (05:54→21:25)
[2017-12-26] MEDS: Famotidine 20 MG Tablet PO (05:54)
[2017-12-26] MEDS: Levothyroxine 25 MCG TABLET PO (05:54)
--- NOTE | 2017-12-26 06:15 | NURSING ---
Pt blood sugar 58 this morning. [place] juice x2 given, along with rigoberto crackers. Will recheck in 15 minutes.
[2017-12-26 06:21] LABS: Bedside Glucose 58 mg/dL (70-110)
[2017-12-26 06:39] VITALS: O2SAT 95
[2017-12-26 06:55] LABS: Bedside Glucose 85 mg/dL (70-110)
[2017-12-26] MEDS: predniSONE 10 MG Tablet PO (08:18)
[2017-12-26 10:06] LABS: Pathologist Review Reviewed
[2017-12-26] MEDS: Acetaminophen 500 MG Tablet 1000 MG PO (10:29)
[2017-12-26 11:31] LABS: Bedside Glucose 167 mg/dL (70-110)
[2017-12-26 15:44] VITALS: BP 93/57; PULSE 64; RESP 20; TEMP 36.6; O2SAT 92
[2017-12-26 17:06] LABS: Bedside Glucose 224 mg/dL (70-110)
[2017-12-26] MEDS: Montelukast 10 MG Tablet PO (18:00)
[2017-12-26] MEDS: Senna/Docusate Sodium 1 Tablet 2 TABLET PO (18:00)
[2017-12-26 21:15] LABS: Bedside Glucose 174 mg/dL (70-110)
[2017-12-26] MEDS: Ezetimibe 10 MG Tablet PO (21:25)
[2017-12-27] MEDS: Carvedilol 6.25 MG Tablet PO ×2 (05:02→17:22)
[2017-12-27] MEDS: Amiodarone 200 MG Tablet 100 MG PO (05:02)
[2017-12-27] MEDS: APIXABAN 5 MG TABLET PO ×2 (05:02→17:22)
[2017-12-27] MEDS: Cefadroxil 500 MG CAPSULE 1000 MG PO (05:02)
[2017-12-27] MEDS: Levothyroxine 25 MCG TABLET PO (05:02)
[2017-12-27] MEDS: Famotidine 20 MG Tablet PO (05:02)
[2017-12-27] MEDS: Furosemide 40 MG Tablet PO (05:02)
[2017-12-27] MEDS: NYSTATIN 500,000 UNIT/5 ML UDC 500000 UNIT PO ×4 (05:03→20:48)
[2017-12-27 07:21] LABS: Bedside Glucose 107 mg/dL (70-110)
[2017-12-27] MEDS: Acetaminophen 500 MG Tablet 1000 MG PO (07:28)
[2017-12-27] MEDS: predniSONE 10 MG Tablet PO (08:13)
--- NOTE | 2017-12-27 08:36 | NURSING ---
Pt out of isolation today per Fadi, Infectious disease
--- NOTE | 2017-12-27 11:24 | CASEMGMT ---
Brief interview for mental status (BIMS) and resident mood interview (PHQ-9) completed on this day. BIMS score 15. PHQ-9 score 10/08
[2017-12-27 11:41] LABS: Bedside Glucose 158 mg/dL (70-110)
--- NOTE | 2017-12-27 15:18 | CHAPLAIN ---
Type of Pastoral Visit ___ Initial Visit _x__ Follow-up Visit ___ On-call Visit ___ General Patient Visit ___ Spiritual Assessment ___ Family Conference ___ Bereavement ___ Rapid Response ___ Code Blue ___ Other (describe below) Pastoral Care Referral From _x__ Patient ___ Family ___ Nurse ___ Physician ___ Helicopter Dispatcher ___ [place] ___ Other (describe below) Sacrament/Intervention _x__ Active listening ___ Anointing ___ Gnosticist ___ Bereavement ___ Communion ___ Rachel exploration ___ ___ Life review ___ Prayer ___ Reconciliation ___ Sacrament of Sick ___ Supportive presence ___ Wedding ___ Other (describe below) Pastoral Comments
[2017-12-27 15:49] VITALS: BP 116/53; PULSE 66; RESP 20; TEMP 36.4; O2SAT 94
[2017-12-27] MEDS: Acetaminophen/Butalbital/Caffe 1 Tablet PO (15:57)
[2017-12-27 17:16] LABS: Bedside Glucose 238 mg/dL (70-110)
[2017-12-27] MEDS: Montelukast 10 MG Tablet PO (17:21)
[2017-12-27] MEDS: Ezetimibe 10 MG Tablet PO (20:47)
[2017-12-27 20:56] LABS: Bedside Glucose 221 mg/dL (70-110)
[2017-12-28] MEDS: Acetaminophen/Butalbital/Caffe 1 Tablet PO (02:30)
[2017-12-28] MEDS: Carvedilol 6.25 MG Tablet PO ×2 (05:38→17:24)
[2017-12-28] MEDS: APIXABAN 5 MG TABLET PO ×2 (05:38→17:24)
[2017-12-28] MEDS: Amiodarone 200 MG Tablet 100 MG PO (05:38)
[2017-12-28] MEDS: Levothyroxine 25 MCG TABLET PO (05:38)
[2017-12-28] MEDS: Famotidine 20 MG Tablet PO (05:39)
[2017-12-28] MEDS: NYSTATIN 500,000 UNIT/5 ML UDC 500000 UNIT PO ×4 (05:39→20:55)
[2017-12-28] MEDS: Furosemide 40 MG Tablet PO (05:39)
[2017-12-28 07:01] LABS: Bedside Glucose 96 mg/dL (70-110)
[2017-12-28] MEDS: predniSONE 10 MG Tablet PO (07:40)
--- NOTE | 2017-12-28 10:33 | CASEMGMT ---
Addendum entered by Joanie Choudhary 12/28/17 10:46: After collaborating further, resident is now requesting for discharge date to be set for 01/01/18. Resident plans to discharge home with spouse at time of discharge. Physical therapy recommending for resident to have continued services through outpatient therapy. Resident requesting for outpatient physical therapy to be set up through [facility]. Resident and resident family educated that an order will be faxed to [facility] and then [facility] will contact resident to set up appointment. Resident spouse plans to provide transportation home for resident at time of discharge. Resident reporting to have needed equipment already set up within the home. Support given. Will faxed order to [facility] when obtained. Proposed discharge date: 01/01/18 PLAN: Discharge home with spouse and outpatient physical therapy. Joanie BE, LYRIC Original Note: Plan of care meeting held. Resident present as well as resident spouse. No discharge date set at this time. Resident plans to continue with further care and treatment on the Transitional Care Unit. Resident plans to discharge home with spouse at time of discharge. Support given. Will continue to follow. Joanie BE, MODEL AND MOLD MAKER PLASTER
[2017-12-28 11:31] LABS: Bedside Glucose 238 mg/dL (70-110)
[2017-12-28 15:44] VITALS: BP 164/86; PULSE 75; RESP 18; TEMP 36.4; O2SAT 95
[2017-12-28 16:50] LABS: Bedside Glucose 203 mg/dL (70-110)
[2017-12-28] MEDS: Montelukast 10 MG Tablet PO (17:23)
--- NOTE | 2017-12-28 20:11 | DCINST_ITS ---
- Discharge Diagnoses Current Active Problems: Current Active and Chronic Problems (Last Updated 12/16/17 @ 22:38 by Melony Gonzalez MD) Shortness of breath (Acute) Acute respiratory failure (Acute) Severe sepsis (Acute) MSSA (methicillin susceptible Staphylococcus aureus) pneumonia (Acute) Hypokalemia (Chronic) You will use the following diet at home:: No restrictions, Regular Your food should be the consistency of: Regular Your liquids should be the consistency of: Regular/Thin Discharge Activity: Return to Normal Activity, May Shower, Use Walker Call your doctor if you observe: Fever of 101 or Higher, Inability to urinate, Inability to have a bowel movement, Shortness of breath, Chest pain, Uncontrolled pain Allergies/Adverse Reactions: Allergies Beta-Blockers (Beta-Adrenergic Bloc Allergy (Verified 12/16/17 20:27) Shortness of breath doxycycline Allergy (Verified 12/16/17 20:27) Hives Penicillins Allergy (Verified 12/16/17 20:27) Rash red dye Allergy (Verified 12/16/17 20:27) Unknown Sulfa (Sulfonamide Antibiotics) Allergy (Verified 12/16/17 20:27) Rash theophylline Allergy (Verified 12/16/17 20:27) Rash codeine Adverse Reaction (Verified 12/16/17 20:27) Nausea Medications to take at Discharge Budesonide/Formoterol 160/4.5 [Symbicort 160/4.5 Mcg Inhaler (SP)] 2 puff INHALATION BID PRN 11/09/15 Montelukast [Singulair] 10 mg PO DAILY 11/09/15 Acetaminophen/Butalbital/Caffe [Fioricet] 1 tab PO BID PRN PRN 03/26/17 Ezetimibe [Zetia] 10 mg PO DAILY 03/26/17 Potassium Chloride [K-Dur] 20 meq PO TID 03/26/17 amiodarone 200 mg tablet 100 mg PO DAILY tab 08/22/17 benzonatate 100 mg capsule 100 mg PO Q6H 10/19/17 levalbuterol 0.63 mg/3 mL solution for nebulization 0.63 mg INHALATION Q4H PRN # 120 vial 10/28/17 benzonatate 100 mg capsule 100 mg PO TID PRN #30 cap 12/15/17 Albuterol IH (ProAir) [Proair Hfa] 2 puff INHALATION Q4H PRN PRN 12/17/17 Apixaban [Eliquis] 5 mg PO BID 12/22/17 Carvedilol [Coreg (Beta Daniel)] 6.25 mg PO BID 12/22/17 Furosemide [Lasix] 40 mg PO DAILY 12/22/17 Ipratropium/Albuterol Sulfate [Duoneb] 3 ml INHALATION Q4HWA.RT 12/22/17 Acetaminophen [Tylenol] 1,000 mg PO Q8H PRN PRN tablet 12/28/17 Famotidine [Pepcid] 20 mg PO BID #60 tab 12/28/17 Insulin Aspart [Novolog Flexpen] 7 units SC TIDAC #1 flexpen 12/28/17 Insulin Detemir [Levemir FlexPen] 10 units SC 1100,2200 #1 insuln.pen 12/28/17 Levothyroxine [Synthroid] 25 mcg PO DAILY #30 tab 12/28/17 Nystatin 500,000 unit PO 4X/DAY #100 ml 12/28/17 Prednisone See Taper PO UD #3 tab 12/28/17 The following prescriptions were given: Insulin Aspart [Novolog Flexpen] 7 units SC TIDAC #1 flexpen Insulin Detemir [Levemir FlexPen] 10 units SC 1100,2200 #1 insuln.pen Levothyroxine [Synthroid] 25 mcg PO DAILY #30 tab Prednisone See Taper PO UD #3 tab Famotidine [Pepcid] 20 mg PO BID #60 tab Nystatin 500,000 unit PO 4X/DAY #100 ml Primary Care Physician: Christi Oswald MD [Primary Care Provider] - Please follow up with your Primary Care Physician in: 1 week. Please Follow Up With: Christi Oswald MD When: [phone] Proposed Discharge Date: 01/01/18
--- NOTE | 2017-12-28 20:13 | DS.PCM_ITS ---
Discharge Date and Diagnosis - Problem List Patient Problems: Active and Suspected Problems (Last Updated 12/16/17 @ 22:38 by Melony Gonzalez MD) Shortness of breath (Acute) Acute respiratory failure (Acute) Severe sepsis (Acute) MSSA (methicillin susceptible Staphylococcus aureus) pneumonia (Acute) Date of Admission: 12/22/17 Date of Discharge: 01/01/18 - Primary Discharge Diagnosis Active and Suspected Problems (Last Updated 12/16/17 @ 22:38 by Melony Gonzalez MD) Shortness of breath (Acute) Acute respiratory failure (Acute) Severe sepsis (Acute) MSSA (methicillin susceptible Staphylococcus aureus) pneumonia (Acute) - Secondary Discharge Diagnosis Chronic Problems (Last Updated 12/16/17 @ 22:38 by Melony Gonzalez MD) Hypokalemia (Chronic) 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 heart disease (ASHD) (Chronic) Asthma (Chronic) Restrictive lung disease (Chronic) Paroxysmal atrial fibrillation (Chronic) Nonrheumatic tricuspid valve regurgitation (Chronic) Dilated cardiomyopathy (Chronic) 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) HTN (hypertension) (Chronic) Diabetes mellitus (Chronic) HLD (hyperlipidemia) (Chronic) DM type 2 (diabetes mellitus, type 2) (Chronic) Hypogammaglobulinemia (Chronic) Morbid obesity (Chronic) Migraines (Chronic) BARTOLO (obstructive sleep apnea) (Chronic) CAD (coronary artery disease) (Chronic) Hospital Course and Treatment Imaging Results: 12/28/17 13:30 Diet: Calorie Controlled Is pt able to select menu?: Yes Diet Comments: low sodium How many daily calories?: 1800 calorie Labs (Last 48 Hours) 12/26/17 12/27/17 12/27/17 21:06 06:35 11:35 POC Glucose 174 H 107 158 H 12/27/17 12/27/17 12/28/17 17:01 20:53 06:34 POC Glucose 238 H 221 H 96 12/28/17 12/28/17 11:09 16:47 POC Glucose 238 H 203 H Operations: None Procedures: None Summary of Care Provided: The patient is a 72 year old Female with below past medical history hospitalized for acute respiratory distress requiring intubation secondary to RSV B infection, MSSA pneumonia, complicated by atrial fibrillation, admitted to TCU with debility, here for rehabilitation, strengthening, prior to discharge home with spouse. [] Discharge home with spouse, and outpatient physical therapy. Discharge Diet: No Restrictions Discharge Activity: Return to Normal Activity, May Shower, Use Walker Call your doctor if you observe: Fever of 101 or Higher, Inability to urinate, Inability to have a bowel movement, Shortness of breath, Chest pain, Uncontrolled pain Home Medications: Medications to take at Discharge Budesonide/Formoterol 160/4.5 [Symbicort 160/4.5 Mcg Inhaler (SP)] 2 puff INHALATION BID PRN 11/09/15 Montelukast [Singulair] 10 mg PO DAILY 11/09/15 Acetaminophen/Butalbital/Caffe [Fioricet] 1 tab PO BID PRN PRN 03/26/17 Ezetimibe [Zetia] 10 mg PO DAILY 03/26/17 Potassium Chloride [K-Dur] 20 meq PO TID 03/26/17 amiodarone 200 mg tablet 100 mg PO DAILY tab 08/22/17 benzonatate 100 mg capsule 100 mg PO Q6H 10/19/17 levalbuterol 0.63 mg/3 mL solution for nebulization 0.63 mg INHALATION Q4H PRN # 120 vial 10/28/17 benzonatate 100 mg capsule 100 mg PO TID PRN #30 cap 12/15/17 Albuterol IH (ProAir) [Proair Hfa] 2 puff INHALATION Q4H PRN PRN 12/17/17 Apixaban [Eliquis] 5 mg PO BID 12/22/17 Carvedilol [Coreg (Beta Daniel)] 6.25 mg PO BID 12/22/17 Furosemide [Lasix] 40 mg PO DAILY 12/22/17 Ipratropium/Albuterol Sulfate [Duoneb] 3 ml INHALATION Q4HWA.RT 12/22/17 Acetaminophen [Tylenol] 1,000 mg PO Q8H PRN PRN tablet 12/28/17 Famotidine [Pepcid] 20 mg PO BID #60 tab 12/28/17 Insulin Aspart [Novolog Flexpen] 7 units SC TIDAC #1 flexpen 12/28/17 Insulin Detemir [Levemir FlexPen] 10 units SC 1100,2200 #1 insuln.pen 12/28/17 Levothyroxine [Synthroid] 25 mcg PO DAILY #30 tab 12/28/17 Nystatin 500,000 unit PO 4X/DAY #100 ml 12/28/17 Prednisone See Taper PO UD #3 tab 12/28/17 Following Prescrptions Were Given to Patient: Insulin Aspart [Novolog Flexpen] 7 units SC TIDAC #1 flexpen Insulin Detemir [Levemir FlexPen] 10 units SC 1100,2200 #1 insuln.pen Levothyroxine [Synthroid] 25 mcg PO DAILY #30 tab Prednisone See Taper PO UD #3 tab Famotidine [Pepcid] 20 mg PO BID #60 tab Nystatin 500,000 unit PO 4X/DAY #100 ml Primary Care Physician: Christi Oswald MD [Primary Care Provider] - Please follow up with your Primary Care Physician in: 1 week. Please Follow Up With: Christi Oswald MD When: [phone] Disposition: Home Minutes spent on discharge:: 30 Patient Condition:: Stable Medical Necessity - Tobacco Use Smoking Status: Never smoker Tobacco Use: Non-smoker Meaningful Use Info Meaningful Use Diagnoses (Choose all that apply): None applicable
[2017-12-28 20:50] LABS: Bedside Glucose 251 mg/dL (70-110)
[2017-12-28] MEDS: Ezetimibe 10 MG Tablet PO (20:55)
[2017-12-29] MEDS: Famotidine 20 MG Tablet PO (05:51)
[2017-12-29] MEDS: Carvedilol 6.25 MG Tablet PO ×2 (05:51→17:21)
[2017-12-29] MEDS: Amiodarone 200 MG Tablet 100 MG PO (05:51)
[2017-12-29] MEDS: Furosemide 40 MG Tablet PO (05:52)
[2017-12-29] MEDS: NYSTATIN 500,000 UNIT/5 ML UDC 500000 UNIT PO ×4 (05:52→20:40)
[2017-12-29] MEDS: APIXABAN 5 MG TABLET PO ×2 (05:52→17:21)
[2017-12-29] MEDS: Levothyroxine 25 MCG TABLET PO (05:53)
[2017-12-29 06:03] VITALS: PULSE 64; O2SAT 96
[2017-12-29 06:51] LABS: Bedside Glucose 108 mg/dL (70-110)
[2017-12-29] MEDS: Acetaminophen 500 MG Tablet 1000 MG PO (08:12)
[2017-12-29] MEDS: predniSONE 10 MG Tablet PO (08:12)
[2017-12-29 11:16] LABS: Bedside Glucose 153 mg/dL (70-110)
[2017-12-29 15:19] VITALS: BP 136/70; PULSE 63; RESP 18; TEMP 36.9; O2SAT 94
[2017-12-29 17:10] LABS: Bedside Glucose 230 mg/dL (70-110)
[2017-12-29] MEDS: Montelukast 10 MG Tablet PO (17:21)
[2017-12-29] MEDS: Acetaminophen/Butalbital/Caffe 1 Tablet PO (17:22)
--- NOTE | 2017-12-29 18:14 | CASEMGMT ---
Social Work Order for outpatient therapy faxed to [facility]. Joanie BE, ONCOLOGY PATIENT NAVIGATOR
[2017-12-29] MEDS: Ezetimibe 10 MG Tablet PO (20:40)
[2017-12-29 20:51] LABS: Bedside Glucose 135 mg/dL (70-110)
[2017-12-30] MEDS: Acetaminophen/Butalbital/Caffe 1 Tablet PO (04:03)
[2017-12-30] MEDS: NYSTATIN 500,000 UNIT/5 ML UDC 500000 UNIT PO ×4 (04:04→22:04)
[2017-12-30] MEDS: APIXABAN 5 MG TABLET PO ×2 (04:05→16:24)
[2017-12-30] MEDS: Amiodarone 200 MG Tablet 100 MG PO (04:05)
[2017-12-30] MEDS: Carvedilol 6.25 MG Tablet PO ×2 (04:05→16:24)
[2017-12-30] MEDS: Famotidine 20 MG Tablet PO (04:05)
[2017-12-30] MEDS: Levothyroxine 25 MCG TABLET PO (04:05)
[2017-12-30] MEDS: Furosemide 40 MG Tablet PO (04:09)
[2017-12-30 06:09] LABS: Absolute Lymphocyte Count 2.53 X10^3/ul (0.83-4.51); Absolute Neutrophil Count 6.9 X10^3/uL (2.0-7.7); Basophil# 0.01 X10^3/uL; Basophil% 0.1 % (0-1); Eosinophil# 0.05 X10^3/uL; Eosinophils% 0.5 % (0-5); Hematocrit 42.6 % (37-47); Hemoglobin 14.3 g/dl (12.0-15.0); Lymphocyte # 2.53 X10^3/ul (4.0); Lymphocyte % 23.4 % (19-41); Mean Corp Hgb Conc 33.6 g/gl (32-36); Mean Corpuscular Hgb 29.4 pg (27.0-32.0); Mean Corpuscular Volume 87.5 fL (81-99); Mean Platelet Vol. 10.5 fl (6.2-12.0); Monocyte# 1.23 X10^3/uL; Monocyte% 11.4 % (0-10); Neutrophil % 63.7 % (47-70); Platelet Count 247 K/mm3 (150-450); RBC Distribution Width CV 13.4 % (11.6-14.6); RBC Distribution Width SD 42.1 fl (35.1-43.9); Red Blood Count 4.87 M/mm3 (4.2-5.4); White Blood Count 10.8 K/mm3 (4.4-11.0)
[2017-12-30 06:13] LABS: POSITIVE COUNT NO; POSITIVE DIFFERENTIAL NO; POSITIVE MORPHOLOGY NO
[2017-12-30 06:27] LABS: Anion Gap 7 (5-15); BUN 20 mg/dL (7-18); BUN/Creat Ratio 24.7 RATIO (10-20); Calcium,Total 8.2 mg/dL (8.5-10.1); Chloride 107 mmol/L (98-107); Creatinine, Serum 0.81 mg/dL (0.55-1.02); EST Glomerular Filtration Rate 74 mL/min (>60); Est Glom Filt Rate - Afr Amer 89 mL/min (>60); Estimated Creatinine Clearance 46.68 ml/min; Glucose 139 mg/dL (74-106); Potassium 3.8 mmol/L (3.5-5.1); Sodium Level 140 mmol/L (136-145)
[2017-12-30 07:01] LABS: Bedside Glucose 122 mg/dL (70-110)
[2017-12-30] MEDS: predniSONE 10 MG Tablet PO (08:10)
[2017-12-30] MEDS: Tuberculin,Purif.prot.deriv. 50 TU/ML Vial 5 ML ID (09:32)
[2017-12-30 11:51] LABS: Bedside Glucose 157 mg/dL (70-110)
--- NOTE | 2017-12-30 11:53 | NURSING ---
Addendum entered by Ibis Geronimo 12/30/17 13:40: Dr. Jones aware. N.O. to D/C Novolog, pt aware. Original Note: R' REFUSING NOON INSULIN, BOTH NOVOLOG AND LEVEMIR. STATES, I'M GOING TO SKIP MY INSULINS FOR NOW. I DON'T NEED THEM AND I DON'T TAKE THEM AT HOME AND WE'LL SEE HOW LATER GOES. 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 JONES ON REFUSAL.
--- NOTE | 2017-12-30 14:02 | NURSING ---
Dr. Jones reviewed AM labs, NNO
--- NOTE | 2017-12-30 14:37 | NURSING ---
PRN INHALER GIVEN DURING THERAPY FOR SOB. R' NOW RESTING IN BED, NO FURTHER C/O SOB. WILL MONITOR.
[2017-12-30 15:09] VITALS: BP 118/51; PULSE 64; RESP 18; TEMP 36.4; O2SAT 93
[2017-12-30] MEDS: Montelukast 10 MG Tablet PO (16:24)
[2017-12-30 16:51] LABS: Bedside Glucose 289 mg/dL (70-110)
[2017-12-30 20:10] VITALS: PULSE 67; O2SAT 96
[2017-12-30 21:17] LABS: Bedside Glucose 258 mg/dL (70-110)
[2017-12-30] MEDS: Ezetimibe 10 MG Tablet PO (22:04)
[2017-12-31] MEDS: NYSTATIN 500,000 UNIT/5 ML UDC 500000 UNIT PO ×4 (04:30→21:06)
[2017-12-31] MEDS: Amiodarone 200 MG Tablet 100 MG PO (04:30)
[2017-12-31] MEDS: APIXABAN 5 MG TABLET PO ×2 (04:30→18:10)
[2017-12-31] MEDS: Famotidine 20 MG Tablet PO (04:30)
[2017-12-31] MEDS: Carvedilol 6.25 MG Tablet PO ×2 (04:30→18:10)
[2017-12-31] MEDS: Furosemide 40 MG Tablet PO (04:30)
[2017-12-31] MEDS: Levothyroxine 25 MCG TABLET PO (04:31)
[2017-12-31 06:41] LABS: Bedside Glucose 100 mg/dL (70-110)
[2017-12-31] MEDS: predniSONE 10 MG Tablet PO (08:13)
--- NOTE | 2017-12-31 09:55 | NURSING ---
went to administer tylenol to pt for migraine, opened packages and then pt stated she wanted her fioricet instead. Wasted tylenol in medication bin.
[2017-12-31] MEDS: Acetaminophen/Butalbital/Caffe 1 Tablet PO (10:13)
[2017-12-31 11:01] LABS: Bedside Glucose 161 mg/dL (70-110)
[2017-12-31 14:16] VITALS: BP 146/78; PULSE 72; RESP 20; TEMP 36.6; O2SAT 93
[2017-12-31 16:45] LABS: Bedside Glucose 292 mg/dL (70-110)
[2017-12-31] MEDS: Montelukast 10 MG Tablet PO (18:10)
[2017-12-31 20:14] VITALS: PULSE 64; RESP 17; O2SAT 96
[2017-12-31] MEDS: Ezetimibe 10 MG Tablet PO (21:07)
[2017-12-31 21:11] LABS: Bedside Glucose 219 mg/dL (70-110)
[2018-01-01] MEDS: Famotidine 20 MG Tablet PO (04:19)
[2018-01-01] MEDS: Acetaminophen/Butalbital/Caffe 1 Tablet PO (04:19)
[2018-01-01] MEDS: Furosemide 40 MG Tablet PO (04:19)
[2018-01-01] MEDS: Levothyroxine 25 MCG TABLET PO (04:19)
[2018-01-01] MEDS: APIXABAN 5 MG TABLET PO (04:20)
[2018-01-01] MEDS: NYSTATIN 500,000 UNIT/5 ML UDC 500000 UNIT PO (04:20)
[2018-01-01] MEDS: Amiodarone 200 MG Tablet 100 MG PO (04:20)
[2018-01-01] MEDS: Carvedilol 6.25 MG Tablet PO (04:20)
[2018-01-01 04:30] VITALS: PULSE 71; RESP 19; O2SAT 97
[2018-01-01 06:40] LABS: Bedside Glucose 137 mg/dL (70-110)
[2018-01-01] MEDS: predniSONE 10 MG Tablet PO (08:01)
[2018-01-01 09:12] VITALS: BP 125/72; PULSE 64; RESP 18; TEMP 36.2; O2SAT 96
--- NOTE | 2018-01-01 10:26 | NURSING ---
pt states that she does not use insulin at home & does not want to be on it. Pt has been on prednisone and has [address] ragland notified, new order DC insulin.
--- NOTE | 2018-01-03 11:49 | MDS.RN ---
Information for the MDS was obtained from review of the clinical record, interview of resident, staff and direct observation of resident's care.
== END 2018-01-01 10:58 | disposition home or self-care (01) | DRG 947 ==
PROVIDERS: Admitting Provider Family Medicine Geriatric Medicine; Family Provider Internal Medicine; PCP Internal Medicine; Visit Provider Family Medicine Geriatric Medicine
DX: R53.81 Other malaise (principal); J15.211 Pneumonia due to Methicillin susceptible Staphylococcus aureus; Z68.41 Body mass index [BMI] 40.0-44.9, adult; E78.5 Hyperlipidemia, unspecified; K21.9 Gastro-esophageal reflux disease without esophagitis; J45.909 Unspecified asthma, uncomplicated; E87.6 Hypokalemia; E11.9 Type 2 diabetes mellitus without complications; I48.0 Paroxysmal atrial fibrillation; E03.2 Hypothyroidism due to medicaments and other exogenous substances; T50.995A Adverse effect of other drugs, medicaments and biological substances, initial encounter; G47.33 Obstructive sleep apnea (adult) (pediatric); I25.10 Atherosclerotic heart disease of native coronary artery without angina pectoris; E66.01 Morbid (severe) obesity due to excess calories; Z79.899 Other long term (current) drug therapy; Z79.4 Long term (current) use of insulin; Z79.01 Long term (current) use of anticoagulants; Z95.1 Presence of aortocoronary bypass graft; Z71.3 Dietary counseling and surveillance; I10 Essential (primary) hypertension; B97.4 Respiratory syncytial virus as the cause of diseases classified elsewhere; G43.909 Migraine, unspecified, not intractable, without status migrainosus; E03.9 Hypothyroidism, unspecified
CPT/HCPCS: 36415; 80048; 82962; 85025; 94640; 97110; 97116; 97162; 97166; 97530; 97535; 97802

== ENCOUNTER → 2018-01-07 08:53 | Outpatient (CLI) | payer MEDICARE, OTHER, SELFPAY | PROVIDERS: Family Provider Internal Medicine; PCP Internal Medicine | DX: D80.1 Nonfamilial hypogammaglobulinemia (principal) ==

== ENCOUNTER → 2018-01-18 15:12 | Outpatient (CLI) | payer MEDICARE, OTHER, SELFPAY ==
[2018-01-18 16:47] LABS: T4 Total, Thyroxin 14.1 ug/dL (4.8-13.9); Thyroid Stim Hormone (TSH) 4.08 uIU/mL (0.358-3.74)
== END ==
PROVIDERS: Family Provider Internal Medicine; PCP Internal Medicine; Visit Provider Internal Medicine Cardiovascular Disease
DX: E03.2 Hypothyroidism due to medicaments and other exogenous substances (principal); J96.00 Acute respiratory failure, unspecified whether with hypoxia or hypercapnia; R53.1 Weakness; R26.2 Difficulty in walking, not elsewhere classified
CPT/HCPCS: 36415; 84436; 84443; 97110

== ENCOUNTER 2018-02-08 11:00 | Outpatient (RCR) | payer MEDICARE, OTHER, SELFPAY ==
--- NOTE | 2018-01-11 13:22 | HP.PTEVAL_ITS ---
Patient's Visit Information ANTIONETTE VELIZ is a 72 year old F referred to Physical Therapy by Haider Jones with a diagnosis of acute resp failure, weakness, difficulty ambulating. Date of Evaluation: 01/11/18 Physical Therapist: Audra Segovia - Visit Plan Frequency: 3x /Week Duration: 6 Weeks Plan: 3X/ week for 6 weeks for endurance activities, LE strengthening, balance activities, with HEP and H&W rountine to be able to do independently at DC - Subjective Subjective: She got out of the hospital a week ago last Tuesday and was in Rehab for a week. She go the RSV virus which turned into pneumonia and a staff infection in lungs that lead to acute respiratory failure and now she has a sinus inflection that was dx on Tuesday and she has been MONZON and dizziness since being in the hospital. 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 She is a [employer] member and she wants to get back to that after this. She has also been in cardiac rehab [place] heart [place] and [place] due to blockages and had a CABG X4. She is SOB since she was 39. She has immune difficency and dx in 2008.....she new something was wrong cause she was sick all the time. All the infections affect her lungs. She had recent bloodwork done and she will get her results soon and see Dr Quintero and is a specialist in immune difficiency and it is genetic. Pt has arthritis pain all the time and currently a MONZON but that is normal for her. Her legs feel real weak with walking. She feels too weak to make a sharp turn etc. L leg was affected after taking the veins out and goes to sleep from heart surgery. Stairs: uses a railing and can go up alternating and goes down sideways with two feet to a stair. She has a bipap machine and is sleeping well. Dr Ames is PCP and pulmonary is Dr Sevilla. She gets sick to her stomach when she bends fw to get something off the floor and she gets dizzy. She feels that her balance sucks. The room does not spin. SHe also has some fluid on her ear. - Objective Gait: walks with slow steppage gait with decrease stride, decrease arm swing, and looking at the floor. FGA: 8. LE MMT: B hip flex 4-/5, B hip abd 4-/5, B knee flex 4-/5, B knee ext 4/5, able to do 1/2 normal ROM bridge,. Pt had a fear of falling off the table when going sit to supine. Needed min A to make sure pt felt comfortable not rolling off table and going supine to sit. - Balance Scores Functional Gait Assessment Score: 8 % Disability: 73.3400 - Goals Goal 1:: I HEP Goal Time Frame: 4-6 Weeks Goal 2:: Increase LE strength by 1/2 muscle grade to increase overall function ( LE MMT at time of eval: LE MMT: B hip flex 4-/5, B hip abd 4-/5, B knee flex 4-/ 5, B knee ext 4/5, able to do 1/2 normal ROM bridge) Goal Time Frame: 4-6 Weeks Goal 3:: Improve FGA score by 5 points to decrease fall risk. Increase FGA from 8 to 13) Goal Time Frame: 4-6 Weeks Goal 4:: Be able to walk back to the treatment rooms without SOB. Goal Time Frame: 4-6 Weeks - Rehabilitation Potential Rehabilitation Potential: Good - Anticipated Interventions Patient/Client Instruction: Educate patient on: Condition, Plan of Care For the Purpose of:: To improve nutrient delivery to tissue, To increase oxygenation perfusion, To improve muscle performance and motor function, To improve ability to perform ADL's, To increase tolerance to activity/condition/ position, To improve performance and independence with ADL's, To decrease level of supervision to perform tasks, To improve ability of physical actions for home /community/work/leisure, To improve gait and locomotor functions, To improve endurance, To improve balance, To improve safety with gait Therapeutic Exercise to Include: Strength training, Endurance training, Balance training, Body mechanics, Postural training, Flexibilty training, Gait and locomotor training, Active ROM For the Purpose of:: To improve muscle performance and motor function, To improve ability to perform ADL's, To increase tolerance to activity/condition/ position, To improve performance and independence with ADL's, To decrease level of supervision to perform tasks, To improve ability of physical actions for home /community/work/leisure, To improve gait and locomotor functions, To improve health of tissue, To improve endurance, To improve balance, To improve safety with gait Functional Training to Include: Gait training For the Purpose of:: To improve gait and locomotor functions, To improve safety with gait Thank you for the opportunity to evaluate your patient. For Medicare and Medicare HMO plans, please review the plan of care and approve it. It will need to be FAXED BACK to us at [phone] for Medicare purposes. Please let me know if there are questions or concerns regarding this plan of care. Physician Signature: Date:
--- NOTE | 2018-02-08 12:17 | HP.PTEVAL_ITS ---
Patient's Visit Information ANTIONETTE VELIZ is a 72 year old F referred to Physical Therapy by Haider Jones with a diagnosis of acute resp failure, weakness, difficulty ambulating. Date of Evaluation: 01/11/18 Physical Therapist: Audra Segovia - Visit Plan Frequency: 3x /Week Duration: 6 Weeks Plan: DC PT to [facility] - Subjective Subjective: She got out of the hospital a week ago last Tuesday and was in Rehab for a week. She go the RSV virus which turned into pneumonia and a staff infection in lungs that lead to acute respiratory failure and now she has a sinus inflection that was dx on Tuesday and she has been MONZON and dizziness since being in the hospital. 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 She is a [employer] member and she wants to get back to that after this. She has also been in cardiac rehab from heart surgery and [place] due to blockages and had a CABG X4. She is SOB since she was 39. She has immune difficency and dx in 2008.....she new something was wrong cause she was sick all the time. All the infections affect her lungs. She had recent bloodwork done and she will get her results soon and see Dr Quintero and is a specialist in immune difficiency and it is genetic. Pt has arthritis pain all the time and currently a MONZON but that is normal for her. Her legs feel real weak with walking. She feels too weak to make a sharp turn etc. L leg was affected after taking the veins out and goes to sleep from heart surgery. Stairs: uses a railing and can go up alternating and goes down sideways with two feet to a stair. She has a bipap machine and is sleeping well. Dr Ames is PCP and pulmonary is Dr Sevilla. She gets sick to her stomach when she bends fw to get something off the floor and she gets dizzy. She feels that her balance sucks. The room does not spin. SHe also has some fluid on her ear. - Pain Headache Pain Intensity (Out of 10): 0 - Objective Gait: walks with slow steppage gait with decrease stride, decrease arm swing, and looking at the floor. FGA: 8. LE MMT: B hip flex 4-/5, B hip abd 4-/5, B knee flex 4-/5, B knee ext 4/5, able to do 1/2 normal ROM bridge,. Pt had a fear of falling off the table when going sit to supine. Needed min A to make sure pt felt comfortable not rolling off table and going supine to sit. - Balance Scores Functional Gait Assessment Score: 13 % Disability: 56.6700 - Goals Goal 1:: I HEP Goal Time Frame: 4-6 Weeks Goal 2:: Increase LE strength by 1/2 muscle grade to increase overall function ( LE MMT at time of eval: LE MMT: B hip flex 4-/5, B hip abd 4-/5, B knee flex 4-/ 5, B knee ext 4/5, able to do 1/2 normal ROM bridge) Goal Time Frame: 4-6 Weeks Goal 3:: Improve FGA score by 5 points to decrease fall risk. Increase FGA from 8 to 13) Goal Time Frame: 4-6 Weeks Goal 4:: Be able to walk back to the treatment rooms without SOB. Goal Time Frame: 4-6 Weeks - Rehabilitation Potential Rehabilitation Potential: Good - Anticipated Interventions Patient/Client Instruction: Educate patient on: Condition, Plan of Care For the Purpose of:: To improve nutrient delivery to tissue, To increase oxygenation perfusion, To improve muscle performance and motor function, To improve ability to perform ADL's, To increase tolerance to activity/condition/ position, To improve performance and independence with ADL's, To decrease level of supervision to perform tasks, To improve ability of physical actions for home /community/work/leisure, To improve gait and locomotor functions, To improve endurance, To improve balance, To improve safety with gait Therapeutic Exercise to Include: Strength training, Endurance training, Balance training, Body mechanics, Postural training, Flexibilty training, Gait and locomotor training, Active ROM For the Purpose of:: To improve muscle performance and motor function, To improve ability to perform ADL's, To increase tolerance to activity/condition/ position, To improve performance and independence with ADL's, To decrease level of supervision to perform tasks, To improve ability of physical actions for home /community/work/leisure, To improve gait and locomotor functions, To improve health of tissue, To improve endurance, To improve balance, To improve safety with gait Functional Training to Include: Gait training For the Purpose of:: To improve gait and locomotor functions, To improve safety with gait Thank you for the opportunity to evaluate your patient. For Medicare and Medicare HMO plans, please review the plan of care and approve it. It will need to be FAXED BACK to us at [phone] for Medicare purposes. Please let me know if there are questions or concerns regarding this plan of care. Physician Signature: Date:
--- NOTE | 2018-04-28 13:48 | HP.PTDCSUM_ITS ---
HP - PT D/C Summary It has been my pleasure to treat ANTIONETTE VELIZ under orders from Haider Wannyi Robert, for the diagnosis of acute resp failure, weakness, difficulty ambulating for a total of 10 visit(s). Discharge Date: 02/08/18 Please see the following information for a summary of their discharge status. - Subjective Subjective: Pt reports that she has been more SOB the last 2 days but the humidity has been bad. She reports that she is ready to do this on her own and wants to start cardiac rehab again but do it on her own. - Pain Headache Pain Intensity (Out of 10): 0 - Overall Improvement % Improvement: 75 - Objective Objective/Function: LE MMT: Increase LE strength by 1/2 muscle grade to increase overall function (LE MMT at time of eval: LE MMT: B hip flex 4-/5, B hip abd 4/5, B knee flex 4/5, B knee ext 4/5, able to do 3/4 normal ROM bridge) . Pt is able to get on and off the mat table easier than new eval date. FGA: 13 - Goals Goal 1:: I HEP Goal Progress: Goal Met Goal 2:: Increase LE strength by 1/2 muscle grade to increase overall function ( LE MMT at time of eval: LE MMT: B hip flex 4-/5, B hip abd 4-/5, B knee flex 4-/ 5, B knee ext 4/5, able to do 1/2 normal ROM bridge) Goal Progress: Goal Met Goal 3:: Improve FGA score by 5 points to decrease fall risk. Increase FGA from 8 to 13) Goal Progress: Goal Met Goal 4:: Be able to walk back to the treatment rooms without SOB. Goal Progress: Goal Met - Plan Plan: [facility] to [facility] - D/C Information Discharge Comments: dc pt [facility] If there are questions or concerns regarding this patient's physical therapy, please feel free to call me at [phone]. Thank you for the referral of this patient. Sincerely, Audra Segovia
== END 2018-02-08 19:00 | disposition home or self-care (01) ==
LOC: PT 11:00
PROVIDERS: Family Provider Internal Medicine; PCP Internal Medicine; Visit Provider Family Medicine Geriatric Medicine
DX: J96.00 Acute respiratory failure, unspecified whether with hypoxia or hypercapnia (principal); M62.81 Muscle weakness (generalized); R26.2 Difficulty in walking, not elsewhere classified
CPT/HCPCS: 97110; 97163; 97530

== ENCOUNTER → 2018-02-27 14:25 | Outpatient (CLI) | payer MEDICARE, OTHER, SELFPAY | PROVIDERS: Family Provider Internal Medicine; PCP Internal Medicine | DX: D80.1 Nonfamilial hypogammaglobulinemia (principal) | CPT/HCPCS: 36415 ==

== ENCOUNTER → 2018-03-07 10:52 | Outpatient (CLI) | payer MEDICARE, OTHER, SELFPAY ==
[2018-03-07 11:16] VITALS: PULSE 71; PULSE 79; PULSE 80; PULSE 91; PULSE 93; PULSE 94; O2SAT 90; O2SAT 93; O2SAT 95; O2SAT 96
--- NOTE | 2018-03-07 17:27 | WT_ITS ---
PSN 6 Minute Walk Test - 6 Minute Walk Test 6 Minute Walk Test: 6 Minute Walk Test PSN:6-Minute Walk Test Start: 03/07/18 11: 16 Freq: Status: Active Protocol: RESP.6MINW Document 03/07/18 11:16 SMB (Rec: 03/07/18 11:19 SMB [id number]) 6 Minute Walk Test Date Performed 03/07/18 Time Performed 11:01 Height 5 ft 1 in Weight: 95.254 kg Weight in Pounds 210.[address]: Rosaline Sheikh Assistive device used: None Pre-test Oxygen Delivery Method Room Air Pulse Ox (%) 96 Pulse Rate (60-100 beats/min) 71 Dyspnea Austyn Scale (0-10) 0.5 Exertion Austyn Scale (6-20) 12 1st minute Oxygen Delivery Method Room Air Pulse Ox (%) 95 Pulse Rate (60-100 beats/min) 80 2nd minute Oxygen Delivery Method Room Air Pulse Ox (%) 93 Pulse Rate (60-100 beats/min) 91 3rd minute Oxygen Delivery Method Room Air Pulse Ox (%) 93 Pulse Rate (60-100 beats/min) 91 4th minute Oxygen Delivery Method Room Air Pulse Ox (%) 93 Pulse Rate (60-100 beats/min) 94 5th minute Oxygen Delivery Method Room Air Pulse Ox (%) 90 Pulse Rate (60-100 beats/min) 93 6th minute Oxygen Delivery Method Room Air Pulse Ox (%) 90 Pulse Rate (60-100 beats/min) 91 Post-test Oxygen Delivery Method Room Air Pulse Ox (%) 96 Pulse Rate (60-100 beats/min) 79 Dyspnea Austyn Scale (0-10) 3 Exertion Austyn Scale (6-20) 14 Full Laps Walked 11 Partial Lap, Number of Tiles Walked 15 Total Distance Walked (ft) 664 - Interpretation Interpretation: The patient ambulated only 664 feet over the course of 6 minutes on room air with no assistive devices or breaks. The patient did experience significant desaturation with an oxygen nathan of 90%. No significant tachycardia was noted. These findings are consistent with a respiratory limitation exercise tolerance. - Recommendations Recommendations: No supplemental oxygen is indicated at this time. However, patient will need to be followed closely given level of desaturation.
== END ==
PROVIDERS: Family Provider Internal Medicine; PCP Internal Medicine; Visit Provider Nurse Practitioner Acute Care
DX: J98.4 Other disorders of lung (principal)
CPT/HCPCS: 94618

== ENCOUNTER → 2018-03-13 07:47 | Outpatient (CLI) | payer MEDICARE, OTHER, SELFPAY ==
--- NOTE | 2018-03-13 12:30 | PFT ---
INTRODUCTION: The patient is a 72-year-old female currently under the care of Rosaline Sheikh NP that presents for pulmonary function testing secondary to a diagnosis of shortness of breath. Respiratory therapy reports good patient effort. Bronchodilators were used during testing. INTERPRETATION: Forced expiration spirometry demonstrates no evidence of a large airways obstructive ventilatory impairment. There was no significant response to aerosolized bronchodilators. Spirograms are of good quality and plateau normally. Body plethysmography was performed and reveals a normal TLC and RV. Diffusing capacity by single breath CO is significantly reduced at 47% of predicted. There has been significant improvement in the patient's TLC since PFTs were last completed in July 2017. Diffusing capacity has remained stable. IMPRESSION: These pulmonary function studies demonstrate the presence of an isolated moderate reduction in diffusing capacity.
== END ==
PROVIDERS: Family Provider Internal Medicine; PCP Internal Medicine; Visit Provider Nurse Practitioner Acute Care
DX: R06.02 Shortness of breath (principal)
CPT/HCPCS: 94060; 94726; 94729

== ENCOUNTER → 2018-04-21 07:17 | Outpatient (CLI) | payer MEDICARE, OTHER, SELFPAY ==
[2018-04-21 08:02] LABS: AST(SGOT) 17 U/L (15-37); Alanine Aminotransfer ALT/SGPT 20 U/L (13-56); Albumin, Serum 3.6 g/dL (3.2-5.0); Alkaline Phosphatase 95 U/L (45-117); Bilirubin, Direct 0.12 mg/dL (0.00-0.30); Cholesterol 266 mg/dL (200); Globulin 3.6 g/dL (2.2-4.2); High Density Lipoprotein 57 mg/dL; Protein, Total 7.2 g/dL (6.4-8.2); T4 Free Direct 1.43 ng/dL (0.76-1.46); T4 Total, Thyroxin 13.1 ug/dL (4.8-13.9); Thyroid Stim Hormone (TSH) 5.61 uIU/mL (0.358-3.74); Triglycerides 224 mg/dL; Very Low Density Lipoprotein 45 mg/dL (5-40)
== END ==
PROVIDERS: Family Provider Internal Medicine; PCP Internal Medicine; Visit Provider Internal Medicine Cardiovascular Disease
DX: I48.0 Paroxysmal atrial fibrillation (principal); E03.2 Hypothyroidism due to medicaments and other exogenous substances; E78.5 Hyperlipidemia, unspecified
CPT/HCPCS: 36415; 80061; 80076; 84436; 84439; 84443

== ENCOUNTER → 2018-05-12 07:21 | Outpatient (CLI) | payer MEDICARE, OTHER, SELFPAY ==
[2018-05-12 08:59] LABS: Microalbumin,Random Urine 12.4 mg/L (NO RANGE EST.); Microalbumin:Creatinine Ratio 14.1 mg/g CRE (<30 mg/g CRE)
[2018-05-12 09:19] LABS: T3 Total - Triiodothyronine 0.86 ng/mL (0.6-1.81)
[2018-05-12 09:28] LABS: AST(SGOT) 13 U/L (15-37); Alanine Aminotransfer ALT/SGPT 18 U/L (13-56); Albumin, Serum 3.4 g/dL (3.2-5.0); Alkaline Phosphatase 92 U/L (45-117); Anion Gap 12 (5-15); BUN 13 mg/dL (7-18); BUN/Creat Ratio 20.4 RATIO (10-20); Calcium,Total 8.6 mg/dL (8.5-10.1); Chloride 106 mmol/L (98-107); Creatinine, Serum 0.64 mg/dL (0.55-1.02); EST Glomerular Filtration Rate 97 mL/min (>60); Est Glom Filt Rate - Afr Amer 117 mL/min (>60); Globulin 3.5 g/dL (2.2-4.2); Glucose 117 mg/dL (74-106); Potassium 3.9 mmol/L (3.5-5.1); Protein, Total 6.9 g/dL (6.4-8.2); Sodium Level 142 mmol/L (136-145); T4 Free Direct 1.44 ng/dL (0.76-1.46); Thyroid Stim Hormone (TSH) 4.66 uIU/mL (0.358-3.74)
== END ==
PROVIDERS: Family Provider Internal Medicine; PCP Internal Medicine; Visit Provider Internal Medicine
DX: E03.9 Hypothyroidism, unspecified (principal); Z79.899 Other long term (current) drug therapy; E78.2 Mixed hyperlipidemia
CPT/HCPCS: 36415; 80053; 82043; 82570; 84439; 84443; 84480

== ENCOUNTER → 2018-08-25 11:26 | Outpatient (CLI) | payer MEDICARE, OTHER, SELFPAY ==
[2018-08-25 11:26] VITALS: BMI 39.3
--- OUTSIDE RECORDS SUMMARY | 2018-10-11 05:01 | XMS RPT_ITS ---
:1945 Author Organization [place] Support Name Relationship Address Phone R Unavailable Unavailable Unavailable HARRISON WYNNE Unavailable [address] + [address] [place] [address] R Unavailable Unavailable Unavailable TOKARHARRISON Unavailable [address] + [address] [place] [address] R Unavailable Unavailable Unavailable TOKARHARRISON Unavailable [address] + [address] [place] [address] R Unavailable Unavailable Unavailable TOKARHARRISON Unavailable [address] + [address] [place] [address] R Unavailable Unavailable Unavailable TOKARHARRISON Unavailable [address] + [address] [place] [address] R Unavailable Unavailable Unavailable TOKARHARRISON Unavailable [address] + [address] [place] [address] R Unavailable Unavailable Unavailable TOKAR, HARRISON Unavailable [address] + [address] [place] [address] R Unavailable Unavailable Unavailable HARRISON WYNNE Unavailable [address] + [address] [place] [address] R Unavailable Unavailable Unavailable TOKARHARRISON Unavailable [address] + [address] [place] [address] R Unavailable Unavailable Unavailable TOKARHARRISON Unavailable [address] + [address] [place] [address] R Unavailable Unavailable Unavailable TOKARHARRISON Unavailable [address] + [address] [place] [address] R Unavailable Unavailable Unavailable TOKHARRISON NEUMANN Unavailable [address] + [address] [place] [address] R Unavailable Unavailable Unavailable TOKAR HARRISON Unavailable [address] + [address] [place] [address] R Unavailable Unavailable Unavailable TOKAR HARRISON Unavailable [address] + [address] [place] [address] R Unavailable Unavailable Unavailable TOKAR HARRISON Unavailable [address] + [address] [place] [address] R Unavailable Unavailable Unavailable TOKAR HARRISON Unavailable [address] + [address] [place] [address] R Unavailable Unavailable Unavailable TOKAR HARRISON Unavailable [address] + [address] [place] [address] R Unavailable Unavailable Unavailable TOKAR, HARRISON Unavailable [address] + [address] [place] [address] R Unavailable Unavailable Unavailable TOKAR HARRISON Unavailable [address] + [address] [place] [address] R Unavailable Unavailable Unavailable TOKAR HARRISON Unavailable [address] + [address] [place] [address] R Unavailable Unavailable Unavailable TOKAR HARRISON Unavailable [address] + [address] [place] [address] R Unavailable Unavailable Unavailable TOKAR, HARRISON Unavailable [address] + [address] [place] [address] R Unavailable Unavailable Unavailable TOKAR HARRISON Unavailable [address] + [address] [place] [address] R Unavailable Unavailable Unavailable TOKAR HARRISON Unavailable [address] + [address] [place] [address] R Unavailable Unavailable Unavailable TOKAR HARRISON Unavailable [address] + [address] [place] [address] R Unavailable Unavailable Unavailable TOKAR, HARRISON Unavailable [address] + [address] [place] [address] R Unavailable Unavailable Unavailable TOKAR HARRISON Unavailable [address] + [address] [place] [address] R Unavailable Unavailable Unavailable TOKAR, HARRISON Unavailable [address] + [address] [place] [address] R Unavailable Unavailable Unavailable TOKAR HARRISON Unavailable [address] + [address] [place] [address] R Unavailable Unavailable Unavailable TOKAR HARRISON Unavailable [address] + [address] [place] [address] R Unavailable Unavailable Unavailable TOKAR HARRISON Unavailable [address] + [address] [place] [address] R Unavailable Unavailable Unavailable TOKAR HARRISON Unavailable [address] + [address] [place] [address] R Unavailable Unavailable Unavailable TOKAR HARRISON Unavailable [address] + [address] [place] [address] R Unavailable Unavailable Unavailable TOKAR HARRISON Unavailable [address] + [address] [place] [address] R Unavailable Unavailable Unavailable TOKAR HARRISON Unavailable [address] + [address] [place] [address] R Unavailable Unavailable Unavailable TOKAR HARRISON Unavailable [address] + [address] [place] [address] R Unavailable Unavailable Unavailable TOKAR HARRISON Unavailable [address] + [address] [place] [address] R Unavailable Unavailable Unavailable TOKAR HARRISON Unavailable [address] + [address] [place] [address] R Unavailable Unavailable Unavailable TOKAR HARRISON Unavailable [address] + [address] [place] [address] R Unavailable Unavailable Unavailable TOKAR HARRISON Unavailable [address] + [address] [place] [address] R Unavailable Unavailable Unavailable TOKAR HARRISON Unavailable [address] + [address] [place] [address] R Unavailable Unavailable Unavailable TOKAR HARRISON Unavailable [address] + [address] [place] [address] R Unavailable Unavailable Unavailable TOKARHARRISON Unavailable [address] + [address] [place] [address] R Unavailable Unavailable Unavailable HARRISON WYNNE Unavailable [address] [place] [address] Care Team Providers Name Role Phone GANTA, MARY Attending Unavailable GANTA, MARY Referring Unavailable ANKIT MCGHEE ([facility]) Attending Unavailable ANKIT MCGHEE ([facility]) Attending Unavailable GANTA, MARY Referring Unavailable ANKIT MCGHEE ([facility]) Attending Unavailable GANTA, MARY Referring Unavailable ANKIT MCGHEE ([facility]) Referring Unavailable ANKIT MCGHEE ([facility]) Attending Unavailable GANTA, MARY Attending Unavailable [place] ([facility]) Referring Unavailable GANTA, MARY Referring Unavailable GANTA, MARY Referring Unavailable GANTA, MARY Attending Unavailable BOO LE Attending Unavailable BOO LE Referring Unavailable Ganta, Mary Primary Care Unavailable Rosaline Sheikh Attending Unavailable Rosaline Sheikh Referring Unavailable Ganta, Mary Primary Care Unavailable Julio Sevilla D.O. Attending Unavailable Ganta, Mary Referring Unavailable RojoDawson Attending Unavailable Rojo, Dawson Referring Unavailable Ganta, Mary Primary Care Unavailable Julio Sevilla D.O. Attending Unavailable Rosaline Sheikh Referring Unavailable Paty Chaudhary Attending Unavailable Trenton Mason Attending Unavailable Ganta, Mary Referring Unavailable Ganta, Mary Primary Care Unavailable Rosaline Sheikh Attending Unavailable Ganta, Mary Referring Unavailable Abraham Aburto Attending Unavailable Abraham Aburto Referring Unavailable Ganta, Mary Primary Care Unavailable Rosaline Sheikh Attending Unavailable Ganta, Mary Referring Unavailable Paty Mullen Attending Unavailable Paty Mullen Referring Unavailable Ganta, Mary Primary Care Unavailable Ganta, Mary Primary Care Unavailable Ashelfah, Ghasem Admitting Unavailable Michael Schmitt Consulting Unavailable Aurelio Marroquin Attending Unavailable Carlos Finn Consulting Unavailable Abraham Aburto Attending Unavailable Ganta, Mary Referring Unavailable SheikhRosaline Attending Unavailable Ganta, Mary Referring Unavailable Ashelfah, Ghasem Admitting Unavailable Ashelfah, Ghasem Attending Unavailable Ganta, Mary Primary Care Unavailable Ashelfah, Ghasem Consulting Unavailable Ashelfah, Ghasem Admitting Unavailable Paintsil, [place] Attending Unavailable Ganta, Mary Primary Care Unavailable Oskar, Michael Consulting Unavailable Paintsil, [place] Consulting Unavailable Ashelfah, Ghasem Admitting Unavailable [place], [place] Attending Unavailable [facility] Care Unavailable Oskar, Michael Consulting Unavailable Paintsil, [place] Consulting Unavailable Ashelfah, Ghasem Admitting Unavailable KittoeAurelio Attending Unavailable [facility] Care Unavailable Oskar, Michael Consulting Unavailable Kittoe, Aurelio Consulting Unavailable Ashelfah, Ghasem Admitting Unavailable Julio Sevilla D.O. Attending Unavailable [facility] Care Unavailable Oskar, Michael Consulting Unavailable Kittoe, Aurelio Consulting Unavailable Ashelfah, Ghasem Admitting Unavailable KittoeAurelio Attending Unavailable [facility] Care Unavailable Oskar, Michael Consulting Unavailable Kitt[place], Aurelio Consulting Unavailable Ashelfah, Ghasem Admitting Unavailable Julio Sevilla D.O. Attending Unavailable [facility] Care Unavailable Oskar, Michael Consulting Unavailable Kittoe, Aurelio Consulting Unavailable Ashelfah, Ghasem Admitting Unavailable Kitt[place] Aurelio Attending Unavailable [facility] Care Unavailable Oskar, Michael Consulting Unavailable Aakash, Carlos Consulting Unavailable Kittoe, Aurelio Consulting Unavailable Ashelfah, Ghasem Admitting Unavailable Julio Sevilla D.O. Attending Unavailable [facility] Care Unavailable Oskar, Michael Consulting Unavailable Aakash, Carlos Consulting Unavailable Kittoe, Aurelio Consulting Unavailable Ashelfah, Ghasem Admitting Unavailable KittoeAurelio Attending Unavailable [facility] Care Unavailable Oskar, Michael Consulting Unavailable Aakash, Carlos Consulting Unavailable Kittoe, Aurelio Consulting Unavailable Ashelfah, Ghasem Admitting Unavailable Lucía Pham TRIM MACHINE OPERATOR-C Attending Unavailable [facility] Care Unavailable Oskar, Michael Consulting Unavailable Aakash, Carlos Consulting Unavailable Kittoe, Aurelio Consulting Unavailable Ashelfah, Ghasem Admitting Unavailable Julio Sevilla D.O. Attending Unavailable [facility] Care Unavailable Oskar, Michael Consulting Unavailable Aakash, Carlos Consulting Unavailable Kittoe, Aurelio Consulting Unavailable Robert, Haider Chi Admitting Unavailable Robert, Haider Chi Attending Unavailable Robert, Haider Chi Referring Unavailable [facility] Care Unavailable Rosaline Sheikh Attending Unavailable [facility] Referring Unavailable Oskar, Michael Attending Unavailable Ashelfah, Ghasem Referring Unavailable Robert, Haider Chi Attending Unavailable Robert, Haider Chi Referring Unavailable Ganta, Mary Primary Care Unavailable Sheikh, Rosaline Attending Unavailable Sheikh, Rosaline Referring Unavailable Ganta, Mary Primary Care Unavailable Sheikh, Rosaline Attending Unavailable Sheikh, Rosaline Referring Unavailable Ganta, Mary Primary Care Unavailable BOO LE Attending Unavailable Ganta, Mary Primary Care Unavailable BOO LE Referring Unavailable Sheikh, Rosaline Attending Unavailable Ganta, Mary Referring Unavailable Julio Sevilla D.O. Attending Unavailable Ganta, Mary Referring Unavailable Moodispaw, Abraham Attending Unavailable [place], Abraham Referring Unavailable Ganta, Mary Primary Care Unavailable BOO LE Attending Unavailable BOO LE Referring Unavailable Ganta, Mary Primary Care Unavailable Sheikh, Rosaline Attending Unavailable Ganta, Mary Referring Unavailable Moodispaw, Abraham Attending Unavailable Ganta, Mary Referring Unavailable Ganta, Mary Primary Care Unavailable Michael Schmitt Attending Unavailable Sheikh, Rosaline Referring Unavailable Julio Sevilla D.O. Attending Unavailable Sheikh, Rosaline Referring Unavailable Mood[place]aw, Abraham Attending Unavailable [place], Abraham Referring Unavailable Ganta, Mary Primary Care Unavailable Ganta, Mary Attending Unavailable Ganta, Mary Primary Care Unavailable Ganta, Mary Referring Unavailable Ganta, Mary Attending Unavailable Ganta, Mary Primary Care Unavailable PROBLEMS PROBLEMS DATE TYPE CONDITION / CODE ATTENDING STATUS SOURCE Unknown J45.909 - Unspecified Sheikh, Active [place] 9 asthma, uncomplicated / Rosaline [facility] J45.909(ICD-10) Hospital Repository Unknown I25.5 - Ischemic [place], Active [place] 9 cardiomyopathy / Abraham [facility] I25.5(ICD-10) Hospital Repository Unknown G47.33 - Obstructive sleep Julio Sevilla Active [place] 9 apnea (adult) (pediatric) D.O. [facility] / G47.33(ICD-10) Hospital Repository Unknown R06.02 - Shortness of Julio Sevilla Active [place] [facility] breath / R06.02(ICD-10) [facility] Unknown D80.1 - Nonfamilial BOO LE Active [place] 8 hypogammaglobulinemia / Community D80.1(ICD-10) Hospital Repository Active Mixed hyperlipidemia / NA Active [place] [facility] E78.2(ICD-10) [facility] [place] Repository Active Other snf (current) NA Active [place] [facility] drug therapy / [facility] Main Z79.899(ICD-10) [place] Repository Active Acute cystitis without NA Active [place] [facility] hematuria / N30.00(ICD-10) [facility] [place] Repository Active Wheezing / R06.2(ICD-10) NA Active [place] [facility] [place] Repository Active Prediabetes / NA Active [place] [facility] R73.03(ICD-10) [facility] [place] Repository Active Essential (primary) NA Active [place] [facility] hypertension / I10(ICD-10) [facility] [place] Repository Active Hypothyroidism, NA Active [place] [facility] unspecified / [facility] Main E03.9(ICD-10) [place] Repository Unknown E78.5 - Hyperlipidemia, [place], Active [place] [facility] unspecified / [facility] E78.5(ICD-10) Hospital Repository Unknown I48.0 - Paroxysmal atrial [place], Active [place] [facility] fibrillation / [facility] I48.0(ICD-10) Hospital Repository Unknown J98.4 - Other disorders of Oskar, Michael Active [place] [facility] lung / J98.4(ICD-10) [facility] Hospital Repository Unknown J96.00 - Acute respiratory Robert, Haider Chi Active [place] [facility] failure, unspecified Community whether with hypoxia or Hospital hypercapnia / Repository J96.00(ICD-10) Unknown J32.9 - Chronic sinusitis, Sheikh, Active [place] [facility] unspecified / [facility] J32.9(ICD-10) Hospital Repository Unknown R53.81 - Other malaise / Robert, Haider Chi Active [place] 8 R53.81(ICD-10) [facility] Hospital Repository Unknown J45.21 - Mild intermittent Oskar, Michael Active [place] 8 asthma with (acute) Community exacerbation / Hospital J45.21(ICD-10) Repository Unknown J96.01 - Acute respiratory Oskar, Michael Active [place] 8 failure with hypoxia / Community J96.01(ICD-10) Hospital Repository Unknown J96.02 - Acute respiratory Oskar, Michael Active [place] 8 failure with hypercapnia / Community J96.02(ICD-10) Hospital Repository Unknown A41.9 - Sepsis, Oskar, Michael Active [place] [facility] unspecified organism / Community A41.9(ICD-10) Hospital Repository Unknown R65.20 - Severe sepsis Oskar, Michael Active [place] 8 without septic shock / Community R65.20(ICD-10) Hospital Repository Unknown I48.91 - Unspecified Oskar, Michael Active [place] [facility] atrial fibrillation / Community I48.91(ICD-10) Hospital Repository Unknown I50.22 - Chronic systolic Oskar, Michael Active [place] 8 (congestive) heart failure Community / I50.22(ICD-10) Hospital Repository Unknown E11.65 - Type 2 diabetes Oskar, Michael Active [place] 8 mellitus with Community hyperglycemia / Hospital E11.65(ICD-10) Repository Unknown E03.9 - Hypothyroidism, Oskar, Michael Active [place] unspecified / Community E03.9(ICD-10) Hospital Repository Unknown I10 - Essential (primary) OskarMichael blanco Active [place] [facility] hypertension / I10(ICD-10) [facility] Hospital Repository Unknown G43.909 - Migraine, Oskar, Michael Active [place] [facility] unspecified, not Community intractable, without Hospital status migrainosus / Repository G43.909(ICD-10) Unknown R05 - Cough / R05(ICD-10) [place], Active [place] 8 [facility] Repository Active Unknown / UNK(Unknown) MARY CHANG Active [address] Repository Unknown M54.5 - Low back pain / Trenton Mason Active [place] 8 M54.5(ICD-10) [facility] Hospital Repository PROCEDURES PROCEDURES No Procedure Records FoundRESULTS RESULTS CARDIOLOGY VISIT Observed: 09/29/2018 Status: F Source: [place] REPORT 11:13 AM [facility] REPOSITORY [facility] [address] [place] [address] OFFICE VISIT Date of Service: 09/29/18 MR#: [id number] Acct: [id number] Name: ANTIONETTE WYNNE Rep #: [id number] : 1945 Provider: Abraham Aburto MD Age/Sex: 73/F Location: [facility] Status: Signed HPI HPI Details: ANTIONETTE WYNNE, is a 73 F who presents to the office today for Outpatient cardiovascular followup for her history of underlying CAD, status post CABG, ischemic mediated cardiomyopathy, paroxysmal atrial fibrillation, hyperlipidemia, hypertension, superimposed upon underlying pulmonary disease. At the present time she denies any ongoing symptoms of classic angina pectoris or overt episodes of CHF or pulmonary edema with respect a classic orthopnea or PND or worsening peripheral pitting edema. There has been no near syncope or syncope. However, she states there were days where she knows she holds extra fluid and her weight goes up. There are other days when she feels less bloated and her weight is down. She continues to avoid salt intake. She states she did indulge somewhat over the recent holidays with her eating sweets. She continues to use her diuretic therapy and her potassium supplement. She has had no other cardiovascular diagnostic studies or therapeutic intervention since her last visit that she is aware of. Intake Vital Signs09/29/18 Body Mass Index (BMI) 41.3 09/29/18 Height 5 ft 1 in 09/29/18 Weight: 216 lb 09/29/18 Body Mass Index (BMI) 40.8 09/29/18 Blood Pressure 142/80 H Intake Visit Reasons: 6 m fu Allergies Beta-Blockers (Beta-Adrenergic Bloc Allergy (Verified 09/29/18 10:31) Shortness of breath doxycycline Allergy (Verified 09/29/18 10:31) Hives Penicillins Allergy (Verified 09/29/18 10:31) Rash red dye Allergy (Verified 09/29/18 10:31) Unknown Sulfa (Sulfonamide Antibiotics) Allergy (Verified 09/29/18 10:31) Rash theophylline Allergy (Verified 09/29/18 10:31) Rash codeine Adverse Reaction (Verified 09/29/18 10:31) Nausea Medications Montelukast [Singulair] 10 mg PO DAILY 11/09/15 [History Confirmed 09/29/18] Ezetimibe [Zetia] 10 mg PO DAILY 03/26/17 [History Confirmed 09/29/18] levalbuterol 0.63 mg/3 mL solution for nebulization 0.63 mg INHALATION Q4H PRN #120 vial 10/28/17 [Rx Confirmed 09/29/18] Acetaminophen [Tylenol] 1,000 mg PO Q8H PRN PRN tab 12/28/17 [Rx Confirmed 09/29/18] carvedilol 6.25 mg tablet 6.25 mg PO BID #180 tab 01/03/18 [Rx Confirmed 09/29/18] furosemide 40 mg tablet 40 mg PO QDAY #90 tab 03/07/18 [Rx Confirmed 09/29/18] potassium chloride ER 20 mEq tablet,extended release(part/cryst) 20 meq PO TID #270 tab 03/07/18 [Rx Confirmed 09/29/18] albuterol sulfate HFA 90 mcg/actuation aerosol inhaler 2 puff INHALATION Q4H PRN PRN #18 g 03/27/18 [Rx Confirmed 09/19/18] fluticasone 50 mcg/actuation nasal spray,suspension 2 spray INTRANASAL QDAY 04/10/18 [History Confirmed 09/29/18] budesonide-formoterol HFA 160 mcg-4.5 mcg/actuation aerosol inhaler 2 puff INHALATION BID PRN #10.2 g 05/11/18 [Rx Confirmed 09/29/18] apixaban 5 mg tablet 5 mg PO BID #60 tab 07/24/18 [Rx Confirmed 09/29/18] levothyroxine 50 mcg tablet 50 mcg PO DAILY 09/19/18 [History Confirmed 09/29/18] metronidazole 0.75 % topical gel 1 applic TOPICAL BID 09/29/18 [History Confirmed 09/29/18] mupirocin 2 % topical cream 1 applic TOPICAL TID PRN 09/29/18 [History Confirmed 09/29/18] nystatin 100,000 unit/gram topical powder 1 applic TOPICAL TID PRN 09/29/18 [History Confirmed 09/29/18] pantoprazole 20 mg tablet,delayed release 20 mg PO DAILY 09/29/18 [History Confirmed 09/29/18] [facility] Medical History COPD (chronic obstructive pulmonary disease) (Chronic) Ischemic cardiomyopathy (Chronic) Essential hypertension (Chronic) Atherosclerotic heart disease of squaxin coronary artery without angina pectoris (Chronic) Arteriosclerotic heart disease (ASHD) (Chronic) Asthma (Chronic) Restrictive lung disease (Chronic) Paroxysmal atrial fibrillation (Chronic) Nonrheumatic tricuspid valve regurgitation (Chronic) Dilated cardiomyopathy (Chronic) 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) Diabetes mellitus (Chronic) HLD (hyperlipidemia) (Chronic) DM type 2 (diabetes mellitus, type 2) (Chronic) Hypogammaglobulinemia (Chronic) Morbid obesity (Chronic) Migraines (Chronic) BARTOLO (obstructive sleep apnea) (Chronic) Vertigo (Acute) History of hysterectomy (Resolved) CAD (coronary artery disease) (Inactive) Surgical History 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) History of cataract surgery (Resolved) History of cholecystectomy (Resolved) History of eye surgery (Chronic) Family History Father CAD (coronary artery disease) Social History Smoking Status: Never smoker second hand exposure: No alcohol intake: never substance use type: does not use caffeine: Yes Type: coffee what type of physical activity do you participate in: running, walking frequency: 3-4 times per week ROS Const Const: Positive for weight gain (6lbs since [place]) and headache(s) (migraines); negative for fatigue, weakness, weight loss, frequent falls or excessive sweating Eyes Eyes: Negative for change in vision, blurry vision or transient loss of vision ENT ENT: Positive for dizziness (Vertigo), balance problems (New DX Vertigo) and headache(s) (migraines) Cardio Chest Pain: No Palpitations: No Edema: Bilateral (LE, hands and abdomen; I feel like Im holding water) Muscle aches with walking: None Resp Respiratory: Positive for SOB with activity (baseline, some days increased); negative for SOB at rest GI GI: Negative vomiting or vomiting blood/hematemesis : Negative for hematuria Musc Musc: Positive for balance problems (New DX Vertigo) and joint pain (HX Arthritis); negative for muscle aches/ myalgia or muscle weakness Skin Skin: Negative non-healing lesions or rash Neuro Neuro: Positive for dizziness (Vertigo), vertigo and headache(s) (migraines); negative for weakness, blurry vision, lightheadedness, frequent falls or orthostatic symptoms [place] Hematologic/Lymphatic: Negative for easy bleeding Endo Endo: Negative for fatigue or excessive sweating Psych Psych: Negative for anxiety or depression Allergy Allergy/Immunology: Negative for hives, Negative for rash Cardiology Exam Const Appearance: cooperative, healthy appearing, comfortable, no acute distress, well developed and well groomed Nutritional Appearance: obese Orientation: alert, awake and oriented x3 Head Head: normal to inspection, normocephalic and atraumatic Ears: hearing grossly normal bilaterally Nose: external nose normal Face and Sinus: face symmetric Mouth: oral mucosae normal Eyes Eyelids: eyelids normal Conjunctivae: conjunctivae normal Pupils: PERRL EOM: EOM intact bilaterally Neck Neck: normal visual inspection and full ROM Carotids: normal carotid upstroke Chest Chest inspection: normal inspection of the chest, symmetric chest movement, midline sternotomy incision and normal respiratory effort Auscultation: Bilateral: Clear to Auscultation Cardio Palpation: normal PMI Rate: regular rate Rhythm: regular rhythm Heart sounds: S1 normal and S2 normal GI GI: normal to inspection, bowel sounds present, soft and obese Neuro General: alert, awake, oriented x3 and moves all extremities Skin Skin: no rashes or lesions noted Extremities Pulses: Normal: Right Radial Pulse, Left Radial Pulse Lower Extremity Edema: None: Bilateral Psych Psychological: normal affect Assessment AND Plan 1. Atherosclerosis of squaxin coronary artery of squaxin heart without angina pectoris I25.10 Plan At the present time she appears to be without ongoing symptoms of classic angina pectoris. She will continue risk factor modification and medical management. 2. History of coronary artery bypass graft x 3 Z95.1 Plan She does have a history of CABG as noted above. She does need to continue risk factor modification and medical therapy. 3. Cardiomyopathy, ischemic I25.5 Plan She has a history of underlying ischemic mediated cardiomyopathy. Her previous noninvasive and invasive studies are as noted above. At the present time she will have a followup echocardiogram to reassess her left ventricular wall motion systolic function to look for any obvious change/decline that may be contributing to her concerns with respect of her fluctuating fluid retention and weight gain. Orders Orders: 4. Paroxysmal atrial fibrillation I48.0 Plan She continues with limiting therapy and anticoagulant therapy. 5. Hyperlipidemia, unspecified hyperlipidemia type E78.5 Plan She states her lipids have been checked by her PCP. She believes they have been under better control with a combination of her current agents with Zetia as well as fish oil. She states she will be starting red yeast rice in the future to see if that will help. She states she cannot tolerate statin therapy based upon musculoskeletal discomfort. She is aware that red yeast rice does include and amount of statin. However she states she was assured by her PCP that this would not have any adverse effects on her. 6. COPD (chronic obstructive pulmonary disease) J44.9 Plan She has underlying pulmonary disease. 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 Plan Detail Additional Comments Thank you for allowing me to participate in the care of your patient. Please don't hesitate to call if any issues arise. This note was generated using a voice recognition system and there may be incorrect words, spelling or punctuation that were not noted when reviewing the office note prior to saving. Follow Up 6 Months (PFM) Coding Level of Care Code Off vis,est,level 4 Diagnoses Atherosclerosis of squaxin coronary artery of squaxin heart without angina pectoris I25.10 [place] vs. transplanted heart: squaxin heart History of coronary artery bypass graft x 3 Z95.1 Cardiomyopathy, ischemic I25.5 Paroxysmal atrial fibrillation I48.0 Hyperlipidemia, unspecified hyperlipidemia type E78.5 Hyperlipidemia type: unspecified COPD (chronic obstructive pulmonary disease) J44.9 Coding Level of Care Code Off vis,est,level 4 Diagnoses Atherosclerosis of squaxin coronary artery of squaxin heart without angina pectoris I25.10 [place] vs. transplanted heart: squaxin heart History of coronary artery bypass graft x 3 Z95.1 Cardiomyopathy, ischemic I25.5 Paroxysmal atrial fibrillation I48.0 Hyperlipidemia, unspecified hyperlipidemia type E78.5 Hyperlipidemia type: unspecified COPD (chronic obstructive pulmonary disease) J44.9 Supplemental Info Supplemental Information The patient had a transthoracic echocardiogram performed on 03/28/2017. The results are as noted below. Interpretation Summary The study was technically difficult. Mild segmental systolic dysfunction (see wall motion). The estimated ejection fraction is 45 %. The left atrium is mildly enlarged. Mild diffuse mitral valve thickening. Mild-Moderate (1-2+) mitral valve insufficiency. Mild to moderate (1-2+) tricuspid valve insufficiency. Mild (1+) pulmonic valve insufficiency. Right ventricular systolic pressure estimated to be 35 mmHg. She had an exercise tolerance test/imaging study performed on 03/28/2017. The nuclear imaging portion is as noted below. Impression: 1. Rest and stress SPECT Cardiolite nuclear imaging demonstrating myocardial perfusion changes appearing compatible with an area of previous myocardial injury/infarction involving portions of the mid to distal anterior, anterolateral, anteroseptal, and apical segments. 2 There are no myocardial perfusion changes consider diagnostic for associated stress-induced myocardial ischemia, 3, The gated Cardiolite study reports an LVEF of 44% She had a diagnostic cardiac catheterization performed at [facility] on 11/10/2015. The results are as noted below. Final impression: 1. Elevated left ventricular end diastolic pressure compatible decreased LV systolic function 2. Left ventricle: A, Severe hypokinesis to akinesis of the anterior, anteroapical and inferoapical segments B. Estimated LVEF of 40% 3. Left main coronary artery: A. Angiographically normal 4. Left anterior descending coronary artery: A. Proximal mild calcification B. Proximal discrete subtotal occlusion C. Mid to distal: Minimal luminal irregularities 5. Left circumflex coronary artery: A. Mid 85% discrete slightly hazy appearing stenosis 6. Right coronary artery: A. Large dominant vessel B. Proximal discrete subtotal occlusion C. Mid to distal: 10-25% diffuse appearing stenosis 7. Mitral valve: A. Mild mitral valve regurgitation Her CABG was performed on 11/12/2015 at [facility]. At that time she received a LINTON to the LAD, and SVG to the second OM and to the PDA Labs LDL Cholesterol 164 mg/dL (0-130) H 04/21/18 HDL Cholesterol 57 mg/dL (40-) 04/21/18 Triglycerides 224 mg/dL (-199) H 04/21/18 VLDL Cholesterol 45 mg/dL (5-40) H 04/21/18 Diagnostics Electrocardiogram 12/16/17 Stress Test Nuclear Medicine 03/28/17 Stress Test 03/28/17 Cardiac Catheterization 11/10/15 Chest X-Ray 12/18/17 Pulmonary Pulmonary Function Test 03/13/18 Pulmonary Exercise Test 09/15/18 09/29/18 1113 <Electronically signed by Abraham Aburto MD> Date Abraham Aburto MD Cosigner Signature: Date (if applicable) CC: Mary Chang MD INITAL EVALUATION (1) Observed: 09/26/2018 Status: F Source: [place] - PT 9:43 AM [facility] REPOSITORY [facility] [address] [place] [address] / REHABILITATION SERVICES INITIAL EVALUATION MR#: [id number] Acct: [id number] Name: ANTIONETTE WYNNE Rep #: [id number] : 1945 73 From: Dawson Pham DPT, OCS, CSCS Referring Dr.: Dawson Rojo MD Status: REG RCR Insurance: MEDICARE PART A B [employer] Patient's Visit Information ANTIONETTE WYNNE is a 73 year old F referred to Physical Therapy by Dawson Rojo MD with a diagnosis of BPPV. Date of Evaluation: 09/25/18 Physical Therapist: Dawson Pham DPT, OCS, CSCS - Visit Plan Frequency: 1-2x /Week Duration: 2-4 Weeks Plan: 1-2x/week for 2-4 weeks for positional treatments as needed and ensure balance and safety. - Subjective Findings: AT 67 had some dizzyness and had crystals moved and it helped. Dizzyness got worse sometime in July after getting sick. [place] bad for two weeks adn had UTI. Also had MONZON and fatigue. Currently dizzyness is intermittent. Causes her to lie down as it makes her feel bad if she moves too much, bending ,stooping. Gets spinning if she lies down on bed. This is brief but annoying/upsetting, only when lying down in bed. Gets it every other day. Sleeping is OK, has bipap. Activities are limited in that she has to lie down and take it easy if she feels bad. Otherwise not avoiding much. Avoids stores if she is dizzy. Balance is OK most of time, had balance treatment which helped. - Objective Walks back to PT slowly but safely, trasnfers I, steps are with rail mod I. c/s aROM WFL adn withotu dizzyness or pain. - R hallpike. + L hallpike for up torsional nystagmus of 10 second duration. Treated with L Alfredo and then sent home with education. - Balance Scores Functional Gait Assessment Score: 21 % Disability: 30.0000 - Goals Goal 1:: Abolish dizzyness 100%. Goal Time Frame: 2-4 Weeks Goal 2:: FGA to improve stability. Goal Time Frame: 4-6 Weeks - Rehabilitation Potential Physical Therapy Diagnosis: L BPPY post canal. Rehabilitation Potential: Good - Anticipated Interventions Patient/Client Instruction: Educate patient on: Condition, Plan of Care For the Purpose of:: To increase tolerance to activity/condition/position Therapeutic Exercise to Include: Balance training Comment: positional For the Purpose of:: To increase tolerance to activity/condition/position, To improve gait and locomotor functions Thank you for the opportunity to evaluate your patient. For Medicare and Medicare HMO plans, please review the plan of care and approve it. It will need to be FAXED BACK to us at [phone] for Medicare purposes. For Medicare only, by signing this I certify the plan of care. Please let me know if there are questions or concerns regarding this plan of care. Physician Signature: Date: <Electronically signed by Dawson Pham DPT, OCS, CSCS> 09/26/18 0943 CC: Mary Chang MD; Dawson Rojo MD EBG Signed PULMONARY VISIT REPORT Observed: 09/19/2018 Status: F Source: [place] 10:53 AM [facility] REPOSITORY [facility] [place] [address] [place] [address] OFFICE VISIT Date of Service: 09/19/18 MR#: [id number] Acct: [id number] Name: ANTIONETTE WYNNE Rep #: [id number] : 1945 Provider: Julio Sevilla D.O. Age/Sex: 73/F Location: [facility] [place].PMW Status: Signed Assessment AND Plan 1. Moderate persistent asthma without complication J45.40 Plan Symptomatically controlled with her current inhaler regimen. This will be continued without change. The patient has been advised to call this office with any worsening in her breathing quality. 2. BARTOLO (obstructive sleep apnea) G47.33 Plan The patient is only partially compliant with the use of her nocturnal BiPAP therapy. Unfortunately, she has a residual AHI of greater than 14 events per hour on her current pressure settings of 15/9 centimeters of water. Her initial polysomnogram may have underestimated the severity of her sleep apnea and due to the lack of supine sleep. Therefore, I have recommended that the patient undergo a re-titration polysomnogram, in hopes of better addressing her underlying BARTOLO. Orders Orders: 3. Morbid obesity E66.01 Plan Weight loss through dietary modification and a graded exercise regimen is strongly encouraged. Plan Detail Follow Up 6 Weeks (CSM) HPI HPI Comments Details: The patient is a 73-year-old female who presents to the clinic today for a routine scheduled follow-up office visit. If you recall, the patient was initially referred to me after relocating to the area as a transfer of care from her previous pulmonary provider. 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 She has undergone a multivessel CABG in November [address] Aburto on an outpatient basis. She has a presumptive history of asthma and is currently prescribed Symbicort, Xopenex and as needed albuterol. The patient also has known obstructive sleep apnea, for which she is currently prescribed bilevel therapy with a pressure setting of 15/9 centimeters of water. Pulmonary function testing completed in July 2016 revealed the presence of a mild restrictive ventilatory defect with a reduction in diffusing capacity. PFTs from July 2017 revealed evidence of a mild restrictive ventilatory defect with a disproportionate reduction in diffusing capacity. Surface echocardiogram dated March 2017 revealed mild segmental systolic dysfunction with an ejection fraction of 45% and a right ventricular systolic pressure estimated to be [address] chest contrast completed in October 2015 revealed evidence of basilar scarring and atelectasis. Today, the patient reports that she tries to wear her BiPAP most days. However, it is clear that she is only utilizing her nocturnal BiPAP therapy about half of the time. She does report increased shortness of breath when exposed to cold weather. Despite this, the patient reports that she has remained compliant with going to [facility] to exercise 3 times per week. She has not required evaluation in the emergency department or urgent care clinic for breathing related issues recently. She is currently being followed by Dr. Rojo of ENT for vertigo symptoms. She does report the presence of frequent headaches and daytime sleepiness. Her weight has remained stable. She denies fevers, chills or night sweats. Intake Vital Signs09/19/18 Height 5 ft 1 in 09/19/18 Weight: 219 lb Intake Visit Reasons: 6 M FU Electrical Technician Required: No DME Vendor: Abbie Accompanied by: Self Is patient in pain?: No Allergies Beta-Blockers (Beta-Adrenergic Bloc Allergy (Verified 09/19/18 10:10) Shortness of breath doxycycline Allergy (Verified 09/19/18 10:10) Hives Penicillins Allergy (Verified 09/19/18 10:10) Rash red dye Allergy (Verified 09/19/18 10:10) Unknown Sulfa (Sulfonamide Antibiotics) Allergy (Verified 09/19/18 10:10) Rash theophylline Allergy (Verified 09/19/18 10:10) Rash codeine Adverse Reaction (Verified 09/19/18 10:10) Nausea Medications Montelukast [Singulair] 10 mg PO DAILY 11/09/15 [History Confirmed 09/19/18] Ezetimibe [Zetia] 10 mg PO DAILY 03/26/17 [History Confirmed 09/19/18] levalbuterol 0.63 mg/3 mL solution for nebulization 0.63 mg INHALATION Q4H PRN #120 vial 10/28/17 [Rx Confirmed 09/19/18] Acetaminophen [Tylenol] 1,000 mg PO Q8H PRN PRN tab 12/28/17 [Rx Confirmed 09/19/18] carvedilol 6.25 mg tablet 6.25 mg PO BID #180 tab 01/03/18 [Rx Confirmed 09/19/18] furosemide 40 mg tablet 40 mg PO QDAY #90 tab 03/07/18 [Rx Confirmed 09/19/18] potassium chloride ER 20 mEq tablet,extended release(part/cryst) 20 meq PO TID #270 tab 03/07/18 [Rx Confirmed 09/19/18] albuterol sulfate HFA 90 mcg/actuation aerosol inhaler 2 puff INHALATION Q4H PRN PRN #18 g 03/27/18 [Rx Confirmed 09/19/18] fluticasone 50 mcg/actuation nasal spray,suspension 2 spray INTRANASAL QDAY 04/10/18 [History Confirmed 09/19/18] levothyroxine 25 mcg tablet 50 mcg PO DAILY tab 04/10/18 [History Confirmed 09/19/18] budesonide-formoterol HFA 160 mcg-4.5 mcg/actuation aerosol inhaler 2 puff INHALATION BID PRN #10.2 g 05/11/18 [Rx Confirmed 09/19/18] apixaban 5 mg tablet 5 mg PO BID #60 tab 07/24/18 [Rx Confirmed 09/19/18] PFSH Medical History Arteriosclerotic heart disease (ASHD) (Chronic) Asthma (Chronic) Restrictive lung disease (Chronic) Paroxysmal atrial fibrillation (Chronic) Nonrheumatic tricuspid valve regurgitation (Chronic) Dilated cardiomyopathy (Chronic) 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) HTN (hypertension) (Chronic) Diabetes mellitus (Chronic) HLD (hyperlipidemia) (Chronic) DM type 2 (diabetes mellitus, type 2) (Chronic) Hypogammaglobulinemia (Chronic) Morbid obesity (Chronic) Migraines (Chronic) BARTOLO (obstructive sleep apnea) (Chronic) CAD (coronary artery disease) (Chronic) Surgical History 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) History of eye surgery (Chronic) Family History Father CAD (coronary artery disease) Social History Smoking Status: Never smoker second hand exposure: No alcohol intake: never substance use type: does not use caffeine: Yes Type: coffee what type of physical activity do you participate in: running, walking frequency: 3-4 times per week Review of Systems Const CONSTITUTIONAL: Positive fatigue; negative anorexia, body ache, chills, daytime sleepiness, fever(s), night sweats, oral thrush, stops breathing during sleep, weight loss, sleeping in chair, weight loss, weight gain, frequent colds, seasonal allergies, other, headache(s) or orthopnea EETM Ear Nose Throat Mouth: Positive hearing normal and nasal discharge; negative hard of hearing, hoarseness, dry mouth in morning, change in vision, itchy eyes, eye pain, swallowing Difficulty, ear pain, nose bleed, headache(s), mouth pain, nasal congestion, post nasal drip, sinus pain, sinus pressure, sore throat or other Cardio Cardiovascular: Positive edema Location: lower extremity; negative chest pain, chest pain at rest, chest pain with activity, irregular heart rhythm, shortness of breath when lying down, palpitations, murmur or other Resp Respiratory: Positive as per HPI, shortness of breath, wheezing, chest tightness and inhalers; negative pain with cough, chest congestion, cough, pain on inspiration, increase use of rescue inhalers, snoring, apnea or other Gastro Gastrointestional: Negative bloody stools, change in appetite, difficulty swallowing, reflux, hematemesis, melena stool, loose stool, constipation or other Genitourinary: Positive nocturia; negative blood in urine, pain with urination or other Musc Musculoskeletal: Negative body pain, back pain, neck pain or other Skin/Breast Skin/Breast: Negative dry skin, itching, rash, unusual bruising, breast lump or other Neuro Neurological: Positive other (dizziness); negative restless legs, confusion or weakness Psych Psychocological: Negative abnormal sleep pattern, anxiety, thoughts of hurting self/others, hopelessness or other Lymph Lymphatic: Negative easy bleeding, easy bruising, swollen lymph nodes or other Exam Const Constitutional: Positive conversant, cooperative, in no acute respiratory distress, well developed, well nourished, good hygiene and obese Head Head: Positive normocephalic and atraumatic; negative cyanosis of lips/distal nose Eyes Eye: Positive clear conjunctiva; negative nystagmus or scleral abnormality Ears Ear: Positive hearing normal; negative hard of hearing Nose Nose: Positive external nose normal; negative epistaxis Mouth Mouth: Positive oral mucosae normal and posterior oropharynx is adequate; negative no lesions or post nasal drip Neck Neck: Positive normal visual inspection and trachea midline; negative lymphadenopathy Chest Wall Chest: Positive symmetric chest movement Normal AP diameter. Resp lung sounds: Positive clear to auscultation and good air exchange; negative wheezes, rhonchi or rales Cardio Cardiac: Positive regular rate, regular rhythm, S1 normal and S2 normal; negative rub, gallop or murmur GI GI: Positive normal bowel sounds and obese Soft without distention Genitourinary: Positive deferred Musc Musculoskeletal: Positive steady gait Skin Pulmonary Skin Exam: Positive intact; negative lesion, ulcers, dermal atrophy or rash Pulses Pulse: Yes Pedal pulses present: Extremities Extremities: No clubbing, No cyanosis, No edema Neuro Neurologic: Yes conversant, Yes no focal neuro deficits, Yes cooperative Lymph Lymphatic: No lymphadenopathy Psych Appearance: Positive grossly normal Mental Status: Positive mental status grossly normal Mood: Positive congruent mood Affect: Positive normal affect Coding Level of Care Code Off vis,est,level 3 Diagnoses Moderate persistent asthma without complication J45.40 Asthma complication type: uncomplicated Asthma persistence: persistent Asthma severity: moderate BARTOLO (obstructive sleep apnea) G47.33 Morbid obesity E66.01 09/19/18 1053 <Electronically signed by Julio Sevilla DO> Date Julio Sevilla DO Cosigner Signature: Date (if applicable) CC: Mary Chang MD 6 MINUTE WALK TEST Observed: 09/15/2018 Status: F Source: [place] 1:12 PM [facility] REPOSITORY [facility] Pulmonary Services/Neurology [address] [place] [address] MR#: [id number] Acct: [id number] Name: ANTIONETTE WYNNE Rep #: [id number] : 1945 73 From: Julio Sevilla DO Referring Dr: Rosaline Sheikh NP Date: Ordering Dr: Sex: F C Location: PSN PSN 6 Minute Walk Test - 6 Minute Walk Test 6 Minute Walk Test: 6 Minute Walk Test PSN:6-Minute Walk Test Start: 09/15/18 09:25 Freq: Status: Active Protocol: [id number] Document 09/15/18 09:26 KORI (Rec: 09/15/18 09:28 KORI [id number]) 6 Minute Walk Test Date Performed 09/15/18 Time Performed 09:00 Height 5 ft 1 in Weight: 215 lb Weight in Pounds [address]: Rosaline Sheikh Assistive device used: None Pre-test Oxygen Delivery Method Room Air Pulse Ox (%) 96 Pulse Rate (60-100 beats/min) 81 Dyspnea Austyn Scale (0-10) 0 Exertion Austyn Scale (6-20) 6 1st minute Oxygen Delivery Method Room Air Pulse Ox (%) 94 Pulse Rate (60-100 beats/min) 92 2nd minute Oxygen Delivery Method Room Air Pulse Ox (%) 93 Pulse Rate (60-100 beats/min) 100 3rd minute Oxygen Delivery Method Room Air Pulse Ox (%) 92 Pulse Rate (60-100 beats/min) 100 4th minute Oxygen Delivery Method Room Air Pulse Ox (%) 92 Pulse Rate (60-100 beats/min) 100 5th minute Oxygen Delivery Method Room Air Pulse Ox (%) 92 Pulse Rate (60-100 beats/min) 103 H 6th minute Oxygen Delivery Method Room Air Pulse Ox (%) 91 Pulse Rate (60-100 beats/min) 104 H Dyspnea Austyn Scale (0-10) 3 Exertion Austyn Scale (6-20) 14 Reported Symptoms Dizziness Post-test Oxygen Delivery Method Room Air Pulse Ox (%) 97 Pulse Rate (60-100 beats/min) 80 Full Laps Walked 16 Partial Lap, Number of Tiles Walked 0 Total Distance Walked (ft) 944 - Interpretation Interpretation: The patient ambulated 944 feet over the course of 6 minutes beginning on room air without assistive devices or breaks. Pretesting oxygen saturation was noted to be 96% on room air. With ambulation, the nathan oxygen saturation was 91%. This represents a significant exertional oxygen desaturation. - Recommendations Recommendations: There is no indication for the use of supplemental oxygen at this time. However, close interval follow-up is recommended, given the degree of oxygen desaturation noted during this study. 09/15/18 1312 <Electronically signed by Julio Sevilla DO> Date Julio Sevilla DO CC: Date Dictated: 09/15/18 1311 Date Transcribed: 09/15/181310 Green Building Architect: Julio Sevilla DO Signed PROGRESS Observed: 09/02/2018 Status: COMPLETED Source: [place] 8:46 AM [facility] REPOSITORY HNO ID: [id number] Author: Mary Chang Service: (none) Author Type: Physician Type: Progress Notes Filed: 09/02/2018 12:55 PM Note Text: Reason for Visit Patient presents with: Recheck: 2 week follow up Antionette Wynne is a 73 year old female who presents here today for Above Complaints.. Health Maintenance BP CONTROLLED (<130/80) DTAP,TDAP,TD(1 - Tdap) COLORECTAL CANCER SCREENING,SEE MODIFIER MAMMOGRAM INFLUENZA(1) HPI Here for follow up of her uri- this has resolved, she has immunodeficiency and cannot fight against pneumococcus, she called her pulm and he did some blood work. She noted that her results will be back here. The only thing left are the headaches but she is thinking it may be related to her cataracts, she will be Having surgery to get out the cataract Prediabetes : recent blood work was showing she is at 6.4- needs to exercise but notes she is very fatigued, she eats a lot of cookies and desserts during that time. She has been [facility], the headaches are making it a little difficult. Essential hypertension: Today BP is a little on the higher side. Hyperlipidemia: Takes zetia and fish oil but she Cannot tolerate the statin. Discussed red rice yeast extract GERD: takes protonix and symptoms are under control. Afib- takes eliquis. Patient has restless legs at night never wanted to use malcolm hose but now that she is using it, she is having better symptoms control. No problem-specific Assessment AND Plan notes found for this encounter. PAST MEDICAL HISTORY Diagnosis Date - Acute non-ST segment elevation myocardial infarction (HCC) - Bronchitis, chronic (HCC) 07/13/2012 - Coronary arteriosclerosis - Cough 07/13/2012 - Esophageal reflux - Essential hypertension, benign - Generalized osteoarthrosis, unspecified site - Hypogammaglobulinemia (HCC) - Immunodeficiency disorder (HCC) - Impaired fasting glucose - Known medical problems History of coronary artery bypass grafting three vessel bypass - Left ventricular systolic dysfunction mild - Obesity - Obstructive sleep apnea syndrome - Other and unspecified hyperlipidemia - Restrictive lung disease 01/13/2018 - Rhinitis, chronic 07/13/2012 - Type 2 diabetes mellitus (HCC) - Unspecified asthma(493.90) - Unspecified sinusitis (chronic) PAST SURGICAL HISTORY Procedure Laterality Date - CARDIAC CATH - CHOLECYSTECTOMY HX 90s gallbladder removed - CORONARY ARTERY BYPASS GRAFT 11/11/2015 - EYE SURGERY HX in [place]- eye ablation - F TOTAL ABDOMINAL HYSTERECTOMY - HYSTERECTOMY HX 1979 partial hysterectomy, still has ovaries - PAST SURGICAL HISTORY OF 10/2007 ptosis - PAST SURGICAL HISTORY OF 11/12/2015 CABG - SEPTOPLASTY 1983 nasal septum - STABISMUS SURG,ONE VERT MUSCLE 2011 FAMILY HISTORY Problem Relation Age of Onset - Arthritis Mother - Heart Mother - other (anemia) Mother - Heart Father - Diabetes Father - Stroke Father - Coronary Artery Disease Father - Cancer Maternal Grandfather kidney and stomach - Heart Sister - Heart Brother - COPD Sister - Heart Daughter - Hypertension Son Social History Substance Use Topics - Smoking status: Never Smoker - Smokeless tobacco: Never Used - Alcohol use Yes Comment: twice per month Past medical history, appointments, medications, allergies reviewed. Pertinent Lab/Diagnostic Studies are reviewed and discussed today Current Outpatient Prescriptions: - ACCU-CHEK INNA PLUS TEST STRP test strip - acetaminophen 325 mg-caffeine 40 mg-butalbital 50 mg (FIORICET) per tablet - albuterol HFA (PROAIR HFA) 90 mcg/actuation inhaler - apixaban (ELIQUIS) 5 mg tab tab(s) - budesonide-formoterol (SYMBICORT) 160-4.5 mcg/actuation inhaler - carvedilol (COREG) 6.25 mg tablet - ezetimibe (ZETIA) 10 mg tablet - fluticasone (FLONASE) 50 mcg/actuation nasal spray - furosemide (LASIX) 20 mg tablet - levalbuterol (XOPENEX) 0.63 mg/3 mL nebulizer solution - levothyroxine (LEVOXYL) 25 mcg tablet - metroNIDAZOLE (METROGEL) 0.75 % Topical Gel - montelukast (SINGULAIR) 10 mg tablet - mupirocin (BACTROBAN) 2 % cream - nystatin (MYCOSTATIN) powder - pantoprazole DR (PROTONIX) 20 mg tablet - potassium chloride 20 mEq TbER Review of Systems CONSTITUTIONAL: No fevers, chills night sweats, unintended weight loss CARDIOVASCULAR: No chest pain, dyspnea, palpitations, orthopnea, PND, ankle edema. PULM: No dyspnea, unexplained cough. GI: No dysphagia/odynophagia, problematic reflux, constipation, diarrhea, changes in stool habits, hematochezia, melena. : No new urinary complaints, including dysuria, gross hematuria or pyuria. NEURO: No new balance problems, peripheral weakness/paresthesias or numbness of concern. Physical Exam BP 138/78 Pulse 84 Resp 20 Wt 98 kg (216 lb) BMI 40.81 kg/m? General appearance: Well appearing, alert, in no acute distress, well nourished. Skin: Skin color, texture, turgor normal, no suspicious rashes or lesions Head: Normocephalic, no masses, lesions, tenderness or abnormalities Eyes: Anicteric sclera. Pupils are equally round and reactive to light. Extraocular movements are intact. Lungs: Lungs clear to auscultation. No wheezing, rhonchi, rales Heart: RRR without murmur, gallop, or rubs. Extremities: No deformities, edema, skin discoloration, clubbing or cyanosis. Good capillary refill. ASSESSMENT/PLAN: 1. Essential hypertension - ICD9: 401.9, ICD10: I10 (primary diagnosis) - good control - Recommended regular aerobic exercise. - Recommend home blood pressure monitoring, to bring results in on next visit - Goal of BP <130/80 2. Gastroesophageal reflux disease without esophagitis - ICD9: 530.81, ICD10: K21.9 See hpi 3. Prediabetes - ICD9: 790.29, ICD10: R73.03 - HGB A1C 4. Mixed hyperlipidemia - ICD9: 272.2, ICD10: E78.2 - good control - Continue current medication. - LIPID PANEL BASIC 5. Paroxysmal atrial fibrillation (HCC) - ICD9: 427.31, ICD10: I48.0 Stable MARY CHANG MD CNOV Observed: 09/02/2018 Status: COMPLETED Source: [place] 8:20 AM [facility] RE[facility]ITORY Office Visit (INTMWS) ANTIONETTE WYNNE ([id number]) 1945 F Date Time Provider Department 09/02/18 8:20 AM MARY CHANG INTMWS During your visit today, we recorded the following information about you: Pulse Respiration Blood pressure Weight 84/minute 20/minute 138/78 98 kg MARY CHANG MD 09/02/2018 12:55 PM Signed Reason for Visit Patient presents with: Recheck: 2 week follow up Antionette Wynne is a 73 year old female who presents here today for Above Complaints.. Health Maintenance BP CONTROLLED (<130/80) DTAP,TDAP,TD(1 - Tdap) COLORECTAL CANCER SCREENING,SEE MODIFIER MAMMOGRAM INFLUENZA(1) HPI Here for follow up of her uri- this has resolved, she has immunodeficiency and cannot fight against pneumococcus, she called her pulm and he did some blood work. She noted that her results will be back here. The only thing left are the headaches but she is thinking it may be related to her cataracts, she will be Having surgery to get out the cataract Prediabetes : recent blood work was showing she is at 6.4- needs to exercise but notes she is very fatigued, she eats a lot of cookies and desserts during that time. She has been trying to go to [facility], the headaches are making it a little difficult. Essential hypertension: Today BP is a little on the higher side. Hyperlipidemia: Takes zetia and fish oil but she Cannot tolerate the statin. Discussed red rice yeast extract GERD: takes protonix and symptoms are under control. Afib- takes eliquis. Patient has restless legs at night never wanted to use malcolm hose but now that she is using it, she is having better symptoms control. No problem-specific Assessment AND Plan notes found for this encounter. PAST MEDICAL HISTORY Diagnosis Date - Acute non-ST segment elevation myocardial infarction (HCC) - Bronchitis, chronic (HCC) 07/13/2012 - Coronary arteriosclerosis - Cough 07/13/2012 - Esophageal reflux - Essential hypertension, benign - Generalized osteoarthrosis, unspecified site - Hypogammaglobulinemia (HCC) - Immunodeficiency disorder (HCC) - Impaired fasting glucose - Known medical problems History of coronary artery bypass grafting three vessel bypass - Left ventricular systolic dysfunction mild - Obesity - Obstructive sleep apnea syndrome - Other and unspecified hyperlipidemia - Restrictive lung disease 01/13/2018 - Rhinitis, chronic 07/13/2012 - Type 2 diabetes mellitus (HCC) - Unspecified asthma(493.90) - Unspecified sinusitis (chronic) PAST SURGICAL HISTORY Procedure Laterality Date - CARDIAC CATH - CHOLECYSTECTOMY HX 90s gallbladder removed - CORONARY ARTERY BYPASS GRAFT 11/11/2015 - EYE SURGERY HX in [place]- eye ablation - F TOTAL ABDOMINAL HYSTERECTOMY - HYSTERECTOMY HX 1979 partial hysterectomy, still has ovaries - PAST SURGICAL HISTORY OF 10/2007 ptosis - PAST SURGICAL HISTORY OF 11/12/2015 CABG - SEPTOPLASTY 1983 nasal septum - STABISMUS SURG,ONE VERT MUSCLE 2011 FAMILY HISTORY Problem Relation Age of Onset - Arthritis Mother - Heart Mother - other (anemia) Mother - Heart Father - Diabetes Father - Stroke Father - Coronary Artery Disease Father - Cancer Maternal Grandfather kidney and stomach - Heart Sister - Heart Brother - COPD Sister - Heart Daughter - Hypertension Son Social History Substance Use Topics - Smoking status: Never Smoker - Smokeless tobacco: Never Used - Alcohol use Yes Comment: twice per month Past medical history, appointments, medications, allergies reviewed. Pertinent Lab/Diagnostic Studies are reviewed and discussed today Current Outpatient Prescriptions: - ACCU-CHEK INNA PLUS TEST STRP test strip - acetaminophen 325 mg-caffeine 40 mg-butalbital 50 mg (FIORICET) per tablet - albuterol HFA (PROAIR HFA) 90 mcg/actuation inhaler - apixaban (ELIQUIS) 5 mg tab tab(s) - budesonide-formoterol (SYMBICORT) 160-4.5 mcg/actuation inhaler - carvedilol (COREG) 6.25 mg tablet - ezetimibe (ZETIA) 10 mg tablet - fluticasone (FLONASE) 50 mcg/actuation nasal spray - furosemide (LASIX) 20 mg tablet - levalbuterol (XOPENEX) 0.63 mg/3 mL nebulizer solution - levothyroxine (LEVOXYL) 25 mcg tablet - metroNIDAZOLE (METROGEL) 0.75 % Topical Gel - montelukast (SINGULAIR) 10 mg tablet - mupirocin (BACTROBAN) 2 % cream - nystatin (MYCOSTATIN) powder - pantoprazole DR (PROTONIX) 20 mg tablet - potassium chloride 20 mEq TbER Review of Systems CONSTITUTIONAL: No fevers, chills night sweats, unintended weight loss CARDIOVASCULAR: No chest pain, dyspnea, palpitations, orthopnea, PND, ankle edema. PULM: No dyspnea, unexplained cough. GI: No dysphagia/odynophagia, problematic reflux, constipation, diarrhea, changes in stool habits, hematochezia, melena. : No new urinary complaints, including dysuria, gross hematuria or pyuria. NEURO: No new balance problems, peripheral weakness/paresthesias or numbness of concern. Physical Exam BP 138/78 Pulse 84 Resp 20 Wt 98 kg (216 lb) BMI 40.81 kg/m? General appearance: Well appearing, alert, in no acute distress, well nourished. Skin: Skin color, texture, turgor normal, no suspicious rashes or lesions Head: Normocephalic, no masses, lesions, tenderness or abnormalities Eyes: Anicteric sclera. Pupils are equally round and reactive to light. Extraocular movements are intact. Lungs: Lungs clear to auscultation. No wheezing, rhonchi, rales Heart: RRR without murmur, gallop, or rubs. Extremities: No deformities, edema, skin discoloration, clubbing or cyanosis. Good capillary refill. ASSESSMENT/PLAN: 1. Essential hypertension - ICD9: 401.9, ICD10: I10 (primary diagnosis) - good control - Recommended regular aerobic exercise. - Recommend home blood pressure monitoring, to bring results in on next visit - Goal of BP <130/80 2. Gastroesophageal reflux disease without esophagitis - ICD9: 530.81, ICD10: K21.9 See hpi 3. Prediabetes - ICD9: 790.29, ICD10: R73.03 - HGB A1C 4. Mixed hyperlipidemia - ICD9: 272.2, ICD10: E78.2 - good control - Continue current medication. - LIPID PANEL BASIC 5. Paroxysmal atrial fibrillation (HCC) - ICD9: 427.31, ICD10: I48.0 Stable MD MARY LIM MD 09/02/2018 9:02 AM Addendum Red rice yeast extract- for lipids Referring Provider: SELF [[id number]] Allergies As of Date: 09/02/2018 Noted Allergy Reaction ALBUTEROL 11/27/2015 14 - Other: See Comments Comments: Tachycardia. HEART RACES, SHORTNESS OF BREATH (PT USES XOPENEX INHALER AT HOME) BETA BLOCKERS (BETA-BLOCKERS (BET*11/16/2007 14 - Other: See Comments Comments: Wheezing. Dyspnea CODEINE 11/16/2007 11 - Vomiting 14 - Other: See Comments Comments: Nausea DOXYCYCLINE 11/19/2008 4 - Hives PENICILLINS 11/16/2007 2 - Rash 4 - Hives RED DYE 03/03/2015 5 - Intolerance Comments: headaches SULFA (SULFONAMIDE ANTIBIOTICS) 11/16/2007 2 - Rash 4 - Hives THEOPHYLLINE 11/16/2007 2 - Rash Date Reviewed: 09/02/2018 Reviewed by: Etelvina Schneider LPN - Fully Assessed Reason for Visit: Recheck [92] Cmt: 2 week follow up Primary Visit Diagnosis:Essential hypertension [I10] Other Visit Diagnoses:Gastroesophageal reflux disease without esophagitis [K21.9] Prediabetes [R73.03] Mixed hyperlipidemia [E78.2] Paroxysmal atrial fibrillation (HCC) [I48.0] Order(s):LIPID PANEL BASIC [SQLIPB] Order #: [id number] FUTURE HGB A1C [TWTBO8T] Order #: [id number] FUTURE Prescriptions as of 09/02/2018 Sig: ACCU-CHEK INNA PLUS TEST STR* 1 Strip once daily. Dx: Insu* [id number]* Take 1 tablet by mouth twice * ALBUTEROL SULFATE HFA 90 MCG/* Inhale 2 Puffs as instructed * APIXABAN 5 MG TABLET Take 1 tablet by mouth twice * BUDESONIDE-FORMOTEROL HFA 160* Inhale 2 Puffs as instructed * CARVEDILOL 6.25 MG TABLET Take 1 tablet by mouth twice * EZETIMIBE 10 MG TABLET TAKE ONE TABLET BY MOUTH ONCE* FLUTICASONE 50 MCG/ACTUATION * Use 2 Sprays in each nostril * FUROSEMIDE 20 MG TABLET Take 1 tablet by mouth once d* LEVALBUTEROL 0.63 MG/3 ML TANNA* LEVOTHYROXINE 25 MCG TABLET Take 1 tablet by mouth once d* METRONIDAZOLE 0.75 % TOPICAL * apply twice daily to affected* MONTELUKAST 10 MG TABLET Take 1 tablet by mouth once d* MUPIROCIN 2 % TOPICAL CREAM Apply 1 application to affect* NYSTATIN 100,000 UNIT/GRAM TO* Apply 1 application to affect* PANTOPRAZOLE 20 MG TABLET,DEL* Take 1 tablet by mouth once d* POTASSIUM CHLORIDE ER 20 MEQ * Take 1 tablet by mouth three * Problem List As Of Date 09/02/2018 Noted Resolved Hyperlipidemia [E78.5] INVALID FOR*08/04/2015 More... Impaired fasting glucose [R73.01] INVALID FOR*05/05/2015 Hypertension [I10] INVALID FOR* More... Migraine without aura, not intractable, with st*INVALID FOR* GERD (gastroesophageal reflux disease) [K21.9] INVALID FOR* More... Bronchitis, chronic [J42] INVALID FOR* Cough [R05] INVALID FOR* Rhinitis, chronic [J31.0] INVALID FOR* Prediabetes [R73.03] INVALID FOR* More... Hypogammaglobulinemia (HCC) [D80.1] INVALID FOR* More... Mixed hyperlipidemia [E78.2] INVALID FOR* More... Atherosclerosis of squaxin coronary artery of na*INVALID FOR* More... S/P coronary artery bypass graft x 2 [Z95.1] INVALID FOR* More... Paroxysmal atrial fibrillation (HCC) [I48.0] INVALID FOR* More... 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 Removed from registry. Patient identified by name and . Davina Freed CMA CNPTONILOCH Observed: 08/31/2018 Status: COMPLETED Source: [place] 12:00 AM [facility] RE[facility]IT[facility] Patient Outreach (INTMWS) ANTIONETTE WYNNE Mere ([id number]) 1945 F Date Time Provider Department 08/31/18 DAVINA FREED) INTMWS During your visit today, we recorded the following information about you: Davina Freed CMA 08/31/2018 8:25 AM Signed [facility] MARINE FUEL DOCK ATTENDANT JESS Provider Action/FYI: Patient is not DM. Removed from registry. Patient identified by name and . Davina Freed CMA Allergies As of Date: 08/31/2018 Noted Allergy Reaction ALBUTEROL 11/27/2015 14 - Other: See Comments Comments: Tachycardia. HEART RACES, SHORTNESS OF BREATH (PT USES XOPENEX INHALER AT HOME) BETA BLOCKERS (BETA-BLOCKERS (BET*11/16/2007 14 - Other: See Comments Comments: Wheezing. Dyspnea CODEINE 11/16/2007 11 - Vomiting 14 - Other: See Comments Comments: Nausea DOXYCYCLINE 11/19/2008 4 - Hives PENICILLINS 11/16/2007 2 - Rash 4 - Hives RED DYE 03/03/2015 5 - Intolerance Comments: headaches SULFA (SULFONAMIDE ANTIBIOTICS) 11/16/2007 2 - Rash 4 - Hives THEOPHYLLINE 11/16/2007 2 - Rash Date Reviewed: 08/14/2018 Reviewed by: Cristina Quiroga LPN - Fully Assessed Reason for Visit: PHMA/Care Gap Outreach [[id number]] Prescriptions as of 08/31/2018 Sig: ACCU-CHEK INNA PLUS TEST STR* 1 Strip once daily. Dx: Insu* [id number]* Take 1 tablet by mouth twice * ALBUTEROL SULFATE HFA 90 MCG/* Inhale 2 Puffs as instructed * APIXABAN 5 MG TABLET Take 1 tablet by mouth twice * BUDESONIDE-FORMOTEROL HFA 160* Inhale 2 Puffs as instructed * CARVEDILOL 6.25 MG TABLET Take 1 tablet by mouth twice * EZETIMIBE 10 MG TABLET TAKE ONE TABLET BY MOUTH ONCE* FLUTICASONE 50 MCG/ACTUATION * Use 2 Sprays in each nostril * FUROSEMIDE 20 MG TABLET Take 1 tablet by mouth once d* LEVALBUTEROL 0.63 MG/3 ML TANNA* LEVOTHYROXINE 25 MCG TABLET Take 1 tablet by mouth once d* METRONIDAZOLE 0.75 % TOPICAL * apply twice daily to affected* MONTELUKAST 10 MG TABLET Take 1 tablet by mouth once d* MUPIROCIN 2 % TOPICAL CREAM Apply 1 application to affect* NYSTATIN 100,000 UNIT/GRAM TO* Apply 1 application to affect* PANTOPRAZOLE 20 MG TABLET,DEL* Take 1 tablet by mouth once d* POTASSIUM CHLORIDE ER 20 MEQ * Take 1 tablet by mouth three * Problem List As Of Date 08/31/2018 Noted Resolved Hyperlipidemia [E78.5] INVALID FOR*08/04/2015 More... Impaired fasting glucose [R73.01] INVALID FOR*05/05/2015 Hypertension [I10] INVALID FOR* More... Migraine without aura, not intractable, with st*INVALID FOR* GERD (gastroesophageal reflux disease) [K21.9] INVALID FOR* More... Bronchitis, chronic [J42] INVALID FOR* Cough [R05] INVALID FOR* Rhinitis, chronic [J31.0] INVALID FOR* Prediabetes [R73.03] INVALID FOR* More... Hypogammaglobulinemia (HCC) [D80.1] INVALID FOR* More... Mixed hyperlipidemia [E78.2] INVALID FOR* More... Atherosclerosis of squaxin coronary artery of na*INVALID FOR* More... S/P coronary artery bypass graft x 2 [Z95.1] INVALID FOR* More... Paroxysmal atrial fibrillation (HCC) [I48.0] INVALID FOR* More... Ptosis of eyelid, right [H02.401] INVALID FOR*09/09/2017 Encounter Status:Closed by DAVINA FREED CMA on 08/31/18 MISCELLANEOUS LAB Collected: 08/25/2018 Status: F Source: [place] 11:40 AM [facility] REPOSITORY Order Comment: Comments: SERUM RT Test(s) Ordered: ANTIBODIES PNEUMOCOCCUS [id number] TYPE CODE TESTS RESULT OUT OF RANGE REFERENCE UNITS LAB [id number] Normal [facility] LAB TEST Result Comment: TEST RESULT LIMITS Pneumococcal Ab (23 Serotype) Pneumo Ab Type 1* 1.7 ug/mL >1.3 Pneumo Ab Type 3* 6.9 ug/mL >1.3 Pneumo Ab Type 4* 2.4 ug/mL >1.3 Pneumo Ab Type 8* 2.7 ug/mL >1.3 Pneumo Ab Type 9 (9N)* 6.2 ug/mL >1.3 Pneumo Ab Type 12 (12F)* 0.3 Low ug/mL >1.3 Pneumo Ab Type 14* 3.2 ug/mL >1.3 Pneumo Ab Type 17 (17F)* 15.7 ug/mL >1.3 Pneumo Ab Type 19 (19F)* 4.0 ug/mL >1.3 Pneumo Ab Type 2* 7.3 ug/mL >1.3 Pneumo Ab Type 20* 6.6 ug/mL >1.3 Pneumo Ab Type 22 (22F)* 0.5 Low ug/mL >1.3 Pneumo Ab Type 23 (23F)* 6.0 ug/mL >1.3 Pneumo Ab Type 26 (6B)* 1.3 Low ug/mL >1.3 Pneumo Ab Type 34 (10A)* 1.9 ug/mL >1.3 Pneumo Ab Type 43 (11A)* 6.0 ug/mL >1.3 Pneumo Ab Type 5* 12.9 ug/mL >1.3 Pneumo Ab Type 51 (7F)* 0.6 Low ug/mL >1.3 Pneumo Ab Type 54 (15B)* >24.8 ug/mL >1.3 Pneumo Ab Type 56 (18C)* >13.9 ug/mL >1.3 Pneumo Ab Type 57 (19A)* >17.2 ug/mL >1.3 Pneumo Ab Type 68 (9V)* >16.4 ug/mL >1.3 Pneumo Ab Type 70 (33F)* 0.5 Low ug/mL >1.3 *This test was developed and its performance characteristics determined by [facility]. It has not been cleared or approved by the U.S. Food and Drug Administration. TESTING PERFORMED AT [facility]. ORIGINAL REPORT ON FILE IN LAB CONTAINS ADDITIONAL TEST SITE INFORMATION. Performed By: #### [id number] #### [facility] [address] [facility], [place], [address] ALBUMIN/CREAT RATIO Collected: 08/14/2018 Status: F Source: [place] 10:49 AM [facility] TYPE CODE TESTS RESULT OUT OF REFERENCE UNITS RANGE LAB UCRR 20-300 mg/dL 25.1 Creatinine,Ur ine,Ran LAB UALBR 0.0-23.0 mg/L <12.0 Albumin Urine Random LAB UALBCR 0-30 mg/g Not Albumin/Creat calculated Ratio Performed By: #### UACR #### [facility] [address] [place], [place] [address] URINALYSIS Collected: 08/14/2018 Status: F Source: [place] 10:48 AM [facility] TYPE CODE TESTS RESULT OUT OF REFERENCE UNITS RANGE LAB UCOL Yellow Color Yellow LAB [facility] Clear Clarity Clear LAB UGLUC Negative mg/dL Glucose, Urine Negative LAB UBIL Negative Bilirubin, Urine Negative LAB UKET Negative Ketones, Urine Negative LAB USPG 1.005-1.030 Specific [place], Ur 1.004 LAB UHGB Negative Hemoglobin/Blood, Negative Ur LAB UPH 4.5-8.0 pH 7.0 LAB UPROT Negative mg/dL Protein, Urine Negative LAB UUROB Normal Urobilinogen Normal LAB UNITR Negative Nitrites Negative LAB ULKEST Negative Leukest Negative LAB UCOM Comments SEE COMMENT Result Comment: Microscopic not warranted LAB UMCOM Urine SEE Ravinder Comment COMMENT Result Comment: N/A Performed By: #### UA #### [facility] [employer] [address], [place] [address] CBC AND DIFFERENTIAL Collected: 08/14/2018 Status: F Source: [place] 10:47 AM [facility] TYPE CODE TESTS RESULT OUT OF REFERENCE UNITS RANGE LAB WBC 3.70-11.00 k/uL WBC 8.75 LAB RBC 3.90-5.20 m/uL RBC High 5.46 LAB HGB 11.5-15.5 g/dL Hemoglobin 15.5 LAB HCT 36.0-46.0 % High Hematocrit 46.2 LAB MCV 80.0-100.0 fL MCV 84.6 LAB MCH 26.0-34.0 pG MCH 28.4 LAB MCHC 30.5-36.0 g/dL MCHC 33.5 LAB RDWCV 11.5-15.0 % RDW-CV 12.6 LAB PLTCT 150-400 k/uL Platelet Count 286 LAB MPV 9.0-12.7 fL MPV 10.8 LAB ANEUT % Neut% 71.1 LAB AANEUT 1.45-7.50 k/uL Abs Neut 6.22 LAB ALYMP % Lymph% 15.5 LAB AALYMP 1.00-4.00 k/uL Abs Lymph 1.36 LAB AMONO % [place]% 11.0 LAB AAMONO <0.87 k/uL Abs [place] High 0.96 LAB AEOS % Eosin% 1.4 LAB AAEOS <0.46 k/uL Abs Eosin 0.12 LAB ABASO % Baso% 1.0 LAB AABASO <0.11 k/uL Abs Baso 0.09 LAB AUNRBC 0 /100 WBC NRBCs 0.0 LAB ABNRBC <0.01 k/uL Absolute nRBC <0.01 LAB DTYP DTYPE Auto Diff Performed By: #### CBCDIF, FT4, CMP, TSH, T3 #### [facility] [employer] [address], [place] [address] FREE T4 Collected: 08/14/2018 Status: F Source: [place] 10:47 AM [facility] TYPE CODE TESTS RESULT OUT OF RANGE REFERENCE UNITS LAB FT4 0.9-1.7 ng/dL Free T4 1.7 Performed By: #### CBCDIF, FT4, CMP, TSH, T3 #### [facility] [address] [place], [place] [address] COMP METABOLIC PANEL Collected: 08/14/2018 Status: F Source: [place] 10:47 AM [facility] TYPE CODE TESTS RESULT OUT OF REFERENCE UNITS RANGE LAB TP 6.3-8.0 g/dL Protein, Total 7.5 LAB ALB 3.9-4.9 g/dL Albumin 4.3 LAB CA 8.5-10.2 mg/dL Calcium, Total 9.5 LAB TBIL 0.2-1.3 mg/dL Bilirubin, Total 0.4 LAB ALKP 34-123 U/L Alkaline Phosphatase 99 LAB AST 13-35 U/L AST 22 LAB GLU 74-99 mg/dL Glucose High 160 Result Comment: The [place] Diabetes Association (ADA) provides guidance for cutoff values for fasting glucose and random glucose. The ADA defines fasting as no caloric intake for at least 8 hours. Fas ting plasma glucose results between 100 to 125 mg/dL indicate increased risk for diabetes (prediabetes). Fasting plasma glucose results greater than or equal to 126 mg/dL meet the criteria for diagnosis of diabetes. In the absence of unequivocal hyperglycemia, results should be confirmed by repeat testing. In a patient with classic symptoms of hyperglycemia or hyperglycemic crisis, random plasma glucose results greater than or equal to 200 mg/dL meet the criteria for diagnosis of diabetes. Reference: Standards of Medical Care in Diabetes 2016, [place] Diabetes Association. Diabetes Care. 2016.39(Suppl 1). LAB BUN 7-21 mg/dL BUN 11 LAB CRET 0.58-0.96 mg/dL Creatinine 0.71 LAB NA 136-144 mmol/L Sodium 138 LAB K 3.7-5.1 mmol/L Potassium 4.3 LAB CL 97-105 mmol/L Chloride 101 LAB CO2 22-30 mmol/L CO2 Low 21 LAB AGAP 9-18 mmol/L Anion Gap 16 LAB ALT 7-38 U/L ALT 18 LAB GFRAA eGFR- Amer. >60 LAB GFRNAA . eGFR-All Other Races >60 Result Comment: eGFR (Estimated GFR) Units of measure: mL/min/1.73 meters squared eGFR is derived from the reexpressed MDRD Study equation using the following parameters: serum creatinine, age, gender and race. The creatinine assay has been calibrated to be traceable to IDPA. An eGFR <60 mL/min/1.73m2 for >3 months is consistent with chronic kidney disease. Refer to KDOQI guidelines for clinical interpretation. In patients with unstable renal function, e.g. those with acute kidney injury, the eGFR may not accurately reflect actual GFR. Performed By: #### CBCDIF, FT4, CMP, TSH, T3 #### [facility] [employer] [address] [address] TSH Collected: 08/14/2018 Status: F Source: [place] 10:47 AM [facility] TYPE CODE TESTS RESULT OUT OF RANGE REFERENCE UNITS LAB TSH 0.400-5.500 uU/mL TSH 2.970 Performed By: #### CBCDIF, FT4, CMP, TSH, T3 #### [facility] [address] [address] T3 Collected: 08/14/2018 Status: F Source: [facility] 10:47 AM [facility] REPOSITORY TYPE CODE TESTS RESULT OUT OF RANGE REFERENCE UNITS LAB T3 79-165 ng/dL T3 98 Performed By: #### CBCDIF, FT4, CMP, TSH, T3 #### [facility] [address] [address] LIPID PANEL, BASIC Collected: 08/14/2018 Status: F Source: [place] 10:47 AM [facility] TYPE CODE TESTS RESULT OUT OF REFERENCE UNITS RANGE LAB CHOL <200 mg/dL Cholesterol High 270 Result Comment: <200 mg/dL, Desirable 200-239 mg/dL, Borderline high >239 mg/dL, High LAB TRIGLY <150 mg/dL Triglyceride High 215 Result Comment: <150 mg/dL, Normal 150-199 mg/dL, Borderline high 200-499 mg/dL, High >499 mg/dL, Very high LAB HDL >39 mg/dL HDL-Cholesterol 55 Result Comment: 40-59 mg/dL, Acceptable >59 mg/dL, High: Negative risk factor for coronary heart disease <40 mg/dL, Low: Positive risk factor for coronary heart disease LAB LDL <100 mg/dL LDL-Cholesterol High 172 Result Comment: <100 mg/dL, Optimal 100-129 mg/dL, Near optimal/above optimal 130-159 mg/dL, Borderline high 160-189 mg/dL, High >189 mg/dL, Very high Secondary prevention optimal LDL Cholesterol levels are recommended to be < 70 mg/dL LAB NONHDL <130 mg/dL Non HDL High Cholesterol 215 Result Comment: <130 mg/dL, Optimal 130-159 mg/dL, Near optimal/above optimal 160-189 mg/dL, Borderline high 190-219 mg/dL, High >219 mg/dL, Very high Secondary prevention optimal non HDL Cholesterol levels are recommended to be < 100 mg/dL LAB FT hrs Fasting Time 6 LAB VLDL <30 mg/dL High VLDL Cholesterol 43 LAB TCHDL <5.10 TC:HDL Ratio 4.91 LAB LDLHDL <2.54 High LDL:HDL Ratio 3.13 Result Comment: Reference: 1. National Cholesterol Education Program ATP III Guideline At-A-Glance Quick Desk Reference: National Heart, Lung, and Blood [place]. National Institutes of Health. 2001: NIH Publication No. 01-3305. 2. An International Atherosclerosis Society position paper: global recommendations for the management of dyslipidemia: executive summary, Atherosclerosis. 2014: 232(2):410-413. Performed By: #### LIPB, HBA1C #### [facility] [employer] [address], [place] [address] HEMOGLOBIN A1C Collected: 08/14/2018 Status: F Source: [place] 10:47 AM [facility] TYPE CODE TESTS RESULT OUT OF REFERENCE UNITS RANGE LAB HGBA1C 4.3-5.6 % High Hemoglobin A1c 6.4 Result Comment: [place] Diabetes Association guidelines indicate that patients with HgbA1c in the range 5.7-6.4% are at increased risk for development of diabetes, and intervention by lifestyle modification may be beneficial. HgbA1c greater or equal to 6.5% is considered diagnostic of diabetes. LAB HBA0 mg/dL Est. Average Glucose 137 Result Comment: eAG: (Estimated average glucose) is a calculated value from HgbA1c and is field representatives director of the average blood glucose level in the last 2-3 month period. Performed By: #### LIPB, HBA1C #### [facility] [employer] [address] [place], [place] [address] XR CHEST 2V FRONTAL/LAT Observed: 08/14/2018 Status: F Source: [place] 10:19 AM [facility] * * *Final Report* * * DATE OF EXAM: Aug 14 2018 10:19AM WOX [id number] - XR CHEST 2V FRONTAL/LAT / PROCEDURE REASON: Wheezing * * * * Physician Interpretation * * * * EXAMINATION: CHEST RADIOGRAPH (2 VIEW FRONTAL and LATERAL) CLINICAL HISTORY: Wheezing MQ: XC2_5 Comparison: None RESULT: Lines, tubes, and devices: None. Lungs and pleura: No consolidation. No lung mass. No pleural effusion. Cardiomediastinal silhouette: Normal cardiomediastinal silhouette. Other: There is notching of the undersurface of the left seventh posterior rib. There are sternotomy sutures. IMPRESSION: No acute radiographic abnormality. Rib notching can be due to formation of collaterals seen with vascular or congenital heart disease. Green Building Architect: DENISE Transcribe Date/Time: Aug 14 2018 4:49P Dictated by : ALIZA RAMIREZ MD This examination was interpreted and the report reviewed and electronically signed by: ALIZA RAMIREZ MD on Aug 14 2018 4:52PM EST [id number] PROGRESS Observed: 08/14/2018 Status: COMPLETED Source: [place] 10:09 AM [facility] HNO ID: [id number] Author: Jovanna Aguirre (Rt) Roshan Gonzalez Service: (none) Author Type: Wall Covering Installer Type: Progress Notes Filed: 08/14/2018 10:19 AM Note Text: Radiology Service Progress Note PATIENT NAME: Antionette Wynne DATE OF SERVICE: August 14, 2018 TIME: 10:09 AM PATIENT IDENTITY VERIFICATION COMPLETED USING TWO (2) METHODS: Patient confirmed name verbally and Date of . PATIENT GENDER DATA: Female. status: : No status: NO. PATIENT RELEVANT IMPLANT DATA REVIEWED: Not Applicable RADIOLOGY DEPARTMENT: General X-ray: Exam(s) Completed: Chest X-Ray PERIPHERAL IV DATA: Not applicable SIGNED BY: RT Taya August 14, 2018 10:09 AM RAPID PCR FLU/RSV Collected: 08/14/2018 Status: F Source: [place] 9:40 AM [facility] TYPE CODE TESTS RESULT OUT OF REFERENCE UNITS RANGE LAB FLRSRC Nasopharyngeal Specimen Swab Source LAB PCRFLA Negative for Influenza A Influenza A by RT PCR PCR LAB PCRFLB Negative for Influenza B Influenza B by RT PCR PCR LAB PCRRSV Negative for RSV RSV PCR by RT PCR Performed By: #### FLRSV #### [facility] [address] [place], [place] [address] PROGRESS Observed: 08/14/2018 Status: COMPLETED Source: [place] 9:13 AM [facility] REPOSITORY HNO ID: [id number] Author: Mary Chang Service: (none) Author Type: Physician Type: Progress Notes Filed: 08/14/2018 5:39 PM Note Text: Reason for Visit Patient presents with: Established Patient: 3 month follow up- c/o still not feeling good,dizzy,back pain Antionette Wynne is a 73 year old female who presents here today for Above Complaints.. Health Maintenance DIABETIC FOOT EXAM BP CONTROLLED (<130/80) DTAP,TDAP,TD(1 - Tdap) URINE ALBUMIN:CREATININE RATIO DILATED RETINAL EXAM COLORECTAL CANCER SCREENING,SEE MODIFIER MAMMOGRAM INFLUENZA(1) LDL CHOLESTEROL HPI Been feeling poorly recently, tired all the time, had back pain, she had severe migraines/headaches. Feels extremely weak and tired. She feels feverish. Her urine seems to be positive, is on bactrim. Of note she has hypogammaglobulinemia and especially has an issue streptococcus She is on eliquis, coreg, lasix for her CAD. She is on medication for asthma. Patient has been headaches for 2 weeks, she feels dizzy when she has it, it goes right around the head, it is in the forehead,often wakes up with a headache,it goes away with migraine medications,these are new and different than migraines she has, but the headaches severe enough to make her feel uncomfortable. No problem-specific Assessment AND Plan notes found for this encounter. PAST MEDICAL HISTORY Diagnosis Date - Acute non-ST segment elevation myocardial infarction (HCC) - Bronchitis, chronic (HCC) 07/13/2012 - Coronary arteriosclerosis - Cough 07/13/2012 - Esophageal reflux - Essential hypertension, benign - Generalized osteoarthrosis, unspecified site - Hypogammaglobulinemia (HCC) - Immunodeficiency disorder (HCC) - Impaired fasting glucose - Known medical problems History of coronary artery bypass grafting three vessel bypass - Left ventricular systolic dysfunction mild - Obesity - Obstructive sleep apnea syndrome - Other and unspecified hyperlipidemia - Restrictive lung disease 01/13/2018 - Rhinitis, chronic 07/13/2012 - Type 2 diabetes mellitus (HCC) - Unspecified asthma(493.90) - Unspecified sinusitis (chronic) PAST SURGICAL HISTORY Procedure Laterality Date - CARDIAC CATH - CHOLECYSTECTOMY HX 90s gallbladder removed - CORONARY ARTERY BYPASS GRAFT 11/11/2015 - EYE SURGERY HX in [place]- eye ablation - F TOTAL ABDOMINAL HYSTERECTOMY - HYSTERECTOMY HX 1979 partial hysterectomy, still has ovaries - PAST SURGICAL HISTORY OF 10/2007 ptosis - PAST SURGICAL HISTORY OF 11/12/2015 CABG - SEPTOPLASTY 1983 nasal septum - STABISMUS SURG,ONE VERT MUSCLE 2011 FAMILY HISTORY Problem Relation Age of Onset - Arthritis Mother - Heart Mother - other (anemia) Mother - Heart Father - Diabetes Father - Stroke Father - Coronary Artery Disease Father - Cancer Maternal Grandfather kidney and stomach - Heart Sister - Heart Brother - COPD Sister - Heart Daughter - Hypertension Son Social History Substance Use Topics - Smoking status: Never Smoker - Smokeless tobacco: Never Used - Alcohol use Yes Comment: twice per month Past medical history, appointments, medications, allergies reviewed. Pertinent Lab/Diagnostic Studies are reviewed and discussed today Current Outpatient Prescriptions: - nitrofurantoin monohydrate and macrocrystal (MACROBID) 100 mg capsule - montelukast (SINGULAIR) 10 mg tablet - pantoprazole DR (PROTONIX) 20 mg tablet - ACCU-CHEK INNA PLUS TEST STRP test strip - ezetimibe (ZETIA) 10 mg tablet - mupirocin (BACTROBAN) 2 % cream - metroNIDAZOLE (METROGEL) 0.75 % Topical Gel - fluticasone (FLONASE) 50 mcg/actuation nasal spray - acetaminophen 325 mg-caffeine 40 mg-butalbital 50 mg (FIORICET) per tablet - nystatin (MYCOSTATIN) powder - levothyroxine (LEVOXYL) 25 mcg tablet - potassium chloride 20 mEq TbER - furosemide (LASIX) 20 mg tablet - carvedilol (COREG) 6.25 mg tablet - apixaban (ELIQUIS) 5 mg tab tab(s) - albuterol HFA (PROAIR HFA) 90 mcg/actuation inhaler - budesonide-formoterol (SYMBICORT) 160-4.5 mcg/actuation inhaler - levalbuterol (XOPENEX) 0.63 mg/3 mL nebulizer solution Review of Systems CONSTITUTIONAL: No fevers, chills night sweats, unintended weight loss CARDIOVASCULAR: No chest pain, dyspnea, palpitations, orthopnea, PND, ankle edema. PULM: No dyspnea, unexplained cough. GI: No dysphagia/odynophagia, problematic reflux, constipation, diarrhea, changes in stool habits, hematochezia, melena. : No new urinary complaints, including dysuria, gross hematuria or pyuria. NEURO: No new balance problems, peripheral weakness/paresthesias or numbness of concern. Physical Exam BP 140/80 (BP Site: Left Arm, BP Position: Sitting, BP Cuff Size: Large Adult) Pulse 85 Temp 36.4 ?C (97.5 ?F) Resp 16 Ht 154.9 cm (5' 1) Wt 98.4 kg (217 lb) SpO2 93% BMI 41.00 kg/m? General appearance: Well appearing, alert, in no acute distress, well nourished. Skin: Skin color, texture, turgor normal, no suspicious rashes or lesions Head: Normocephalic, no masses, lesions, tenderness or abnormalities Eyes: Anicteric sclera. Pupils are equally round and reactive to light. Extraocular movements are intact. Lungs: the right lower lobe seems to have some ronchi and wheezing. Heart: RRR without murmur, gallop, or rubs. Extremities: No deformities, edema, skin discoloration, clubbing or cyanosis. Good capillary refill. ASSESSMENT/PLAN: 1. Acute cystitis without hematuria - ICD9: 595.0, ICD10: N30.00 (primary diagnosis) - UA CHEMSTRIP ONLY 2. Viral illness - ICD9: 079.99, ICD10: B34.9 - Discussed viral etiology and rationale for treatment. - Symptomatic treatment with prn analgesia - Supportive care with fluids and rest - RAPID PCR ASSAY FOR FLU/RSV 3. Breast cancer screening by mammogram - ICD9: V76.12, ICD10: Z12.31 - Encouraged monthly BSE - Follow up for annual exam in one year. - ROSALIA SCREENING 4. Essential hypertension - ICD9: 401.9, ICD10: I10 - good control - Recommended regular aerobic exercise. - Recommend home blood pressure monitoring, to bring results in on next visit - Goal of BP <130/80 - CBC + DIFF - COMP METABOLIC PANEL 5. S/P coronary artery bypass graft x 2 - ICD9: V45.81, ICD10: Z95.1 6. Elevated blood sugar - ICD9: 790.29, ICD10: R73.9 - HGB A1C 7. Wheezing - ICD9: 786.07, ICD10: R06.2 - XR CHEST 2V FRONTAL/LAT 8. New onset of headaches - ICD9: 784.0, ICD10: R51 MARY CHANG MD CNOV Observed: 08/14/2018 Status: COMPLETED Source: [place] 9:00 AM [facility] Office Visit (INTMWS) ANTIONETTE WYNNE ([id number]) 1945 F Date Time Provider Department 08/14/18 9:00 AM MARY CHANG INTMWS During your visit today, we recorded the following information about you: Temperature Pulse Respiration Blood pressure 97.5 degrees 85/minute 16/minute 134/76 Weight Height 98.4 kg 1.549 m MARY CHANG MD 08/14/2018 5:39 PM Signed Reason for Visit Patient presents with: Established Patient: 3 month follow up- c/o still not feeling good,dizzy,back pain Antionette Wynne is a 73 year old female who presents here today for Above Complaints.. Health Maintenance DIABETIC FOOT EXAM BP CONTROLLED (<130/80) DTAP,TDAP,TD(1 - Tdap) URINE ALBUMIN:CREATININE RATIO DILATED RETINAL EXAM COLORECTAL CANCER SCREENING,SEE MODIFIER MAMMOGRAM INFLUENZA(1) LDL CHOLESTEROL HPI Been feeling poorly recently, tired all the time, had back pain, she had severe migraines/headaches. Feels extremely weak and tired. She feels feverish. Her urine seems to be positive, is on bactrim. Of note she has hypogammaglobulinemia and especially has an issue streptococcus She is on eliquis, coreg, lasix for her CAD. She is on medication for asthma. Patient has been headaches for 2 weeks, she feels dizzy when she has it, it goes right around the head, it is in the forehead,often wakes up with a headache,it goes away with migraine medications,these are new and different than migraines she has, but the headaches severe enough to make her feel uncomfortable. No problem-specific Assessment AND Plan notes found for this encounter. PAST MEDICAL HISTORY Diagnosis Date - Acute non-ST segment elevation myocardial infarction (HCC) - Bronchitis, chronic (HCC) 07/13/2012 - Coronary arteriosclerosis - Cough 07/13/2012 - Esophageal reflux - Essential hypertension, benign - Generalized osteoarthrosis, unspecified site - Hypogammaglobulinemia (HCC) - Immunodeficiency disorder (HCC) - Impaired fasting glucose - Known medical problems History of coronary artery bypass grafting three vessel bypass - Left ventricular systolic dysfunction mild - Obesity - Obstructive sleep apnea syndrome - Other and unspecified hyperlipidemia - Restrictive lung disease 01/13/2018 - Rhinitis, chronic 07/13/2012 - Type 2 diabetes mellitus (HCC) - Unspecified asthma(493.90) - Unspecified sinusitis (chronic) PAST SURGICAL HISTORY Procedure Laterality Date - CARDIAC CATH - CHOLECYSTECTOMY HX 90s gallbladder removed - CORONARY ARTERY BYPASS GRAFT 11/11/2015 - EYE SURGERY HX in [place]- eye ablation - F TOTAL ABDOMINAL HYSTERECTOMY - HYSTERECTOMY HX 1979 partial hysterectomy, still has ovaries - PAST SURGICAL HISTORY OF 10/2007 ptosis - PAST SURGICAL HISTORY OF 11/12/2015 CABG - SEPTOPLASTY 1983 nasal septum - STABISMUS SURG,ONE VERT MUSCLE 2011 FAMILY HISTORY Problem Relation Age of Onset - Arthritis Mother - Heart Mother - other (anemia) Mother - Heart Father - Diabetes Father - Stroke Father - Coronary Artery Disease Father - Cancer Maternal Grandfather kidney and stomach - Heart Sister - Heart Brother - COPD Sister - Heart Daughter - Hypertension Son Social History Substance Use Topics - Smoking status: Never Smoker - Smokeless tobacco: Never Used - Alcohol use Yes Comment: twice per month Past medical history, appointments, medications, allergies reviewed. Pertinent Lab/Diagnostic Studies are reviewed and discussed today Current Outpatient Prescriptions: - nitrofurantoin monohydrate and macrocrystal (MACROBID) 100 mg capsule - montelukast (SINGULAIR) 10 mg tablet - pantoprazole DR (PROTONIX) 20 mg tablet - ACCU-CHEK INNA PLUS TEST STRP test strip - ezetimibe (ZETIA) 10 mg tablet - mupirocin (BACTROBAN) 2 % cream - metroNIDAZOLE (METROGEL) 0.75 % Topical Gel - fluticasone (FLONASE) 50 mcg/actuation nasal spray - acetaminophen 325 mg-caffeine 40 mg-butalbital 50 mg (FIORICET) per tablet - nystatin (MYCOSTATIN) powder - levothyroxine (LEVOXYL) 25 mcg tablet - potassium chloride 20 mEq TbER - furosemide (LASIX) 20 mg tablet - carvedilol (COREG) 6.25 mg tablet - apixaban (ELIQUIS) 5 mg tab tab(s) - albuterol HFA (PROAIR HFA) 90 mcg/actuation inhaler - budesonide-formoterol (SYMBICORT) 160-4.5 mcg/actuation inhaler - levalbuterol (XOPENEX) 0.63 mg/3 mL nebulizer solution Review of Systems CONSTITUTIONAL: No fevers, chills night sweats, unintended weight loss CARDIOVASCULAR: No chest pain, dyspnea, palpitations, orthopnea, PND, ankle edema. PULM: No dyspnea, unexplained cough. GI: No dysphagia/odynophagia, problematic reflux, constipation, diarrhea, changes in stool habits, hematochezia, melena. : No new urinary complaints, including dysuria, gross hematuria or pyuria. NEURO: No new balance problems, peripheral weakness/paresthesias or numbness of concern. Physical Exam BP 140/80 (BP Site: Left Arm, BP Position: Sitting, BP Cuff Size: Large Adult) Pulse 85 Temp 36.4 ?C (97.5 ?F) Resp 16 Ht 154.9 cm (5' 1) Wt 98.4 kg (217 lb) SpO2 93% BMI 41.00 kg/m? General appearance: Well appearing, alert, in no acute distress, well nourished. Skin: Skin color, texture, turgor normal, no suspicious rashes or lesions Head: Normocephalic, no masses, lesions, tenderness or abnormalities Eyes: Anicteric sclera. Pupils are equally round and reactive to light. Extraocular movements are intact. Lungs: the right lower lobe seems to have some ronchi and wheezing. Heart: RRR without murmur, gallop, or rubs. Extremities: No deformities, edema, skin discoloration, clubbing or cyanosis. Good capillary refill. ASSESSMENT/PLAN: 1. Acute cystitis without hematuria - ICD9: 595.0, ICD10: N30.00 (primary diagnosis) - UA CHEMSTRIP ONLY 2. Viral illness - ICD9: 079.99, ICD10: B34.9 - Discussed viral etiology and rationale for treatment. - Symptomatic treatment with prn analgesia - Supportive care with fluids and rest - RAPID PCR ASSAY FOR FLU/RSV 3. Breast cancer screening by mammogram - ICD9: V76.12, ICD10: Z12.31 - Encouraged monthly BSE - Follow up for annual exam in one year. - ROSALIA SCREENING 4. Essential hypertension - ICD9: 401.9, ICD10: I10 - good control - Recommended regular aerobic exercise. - Recommend home blood pressure monitoring, to bring results in on next visit - Goal of BP <130/80 - CBC + DIFF - COMP METABOLIC PANEL 5. S/P coronary artery bypass graft x 2 - ICD9: V45.81, ICD10: Z95.1 6. Elevated blood sugar - ICD9: 790.29, ICD10: R73.9 - HGB A1C 7. Wheezing - ICD9: 786.07, ICD10: R06.2 - XR CHEST 2V FRONTAL/LAT 8. New onset of headaches - ICD9: 784.0, ICD10: R51 MD Cristina LIM LPN 08/14/2018 9:48 AM Signed Eye exam end of August with Referring Provider: ANKIT MCGHEE ([facility]) [[id number]] Allergies As of Date: 08/14/2018 Noted Allergy Reaction ALBUTEROL 11/27/2015 14 - Other: See Comments Comments: Tachycardia. HEART RACES, SHORTNESS OF BREATH (PT USES XOPENEX INHALER AT HOME) BETA BLOCKERS (BETA-BLOCKERS (BET*11/16/2007 14 - Other: See Comments Comments: Wheezing. Dyspnea CODEINE 11/16/2007 11 - Vomiting 14 - Other: See Comments Comments: Nausea DOXYCYCLINE 11/19/2008 4 - Hives PENICILLINS 11/16/2007 2 - Rash 4 - Hives RED DYE 03/03/2015 5 - Intolerance Comments: headaches SULFA (SULFONAMIDE ANTIBIOTICS) 11/16/2007 2 - Rash 4 - Hives THEOPHYLLINE 11/16/2007 2 - Rash Date Reviewed: 08/14/2018 Reviewed by: Cristina Quiroga LPN - Fully Assessed Reason for Visit: Established Patient [175] Cmt: 3 month follow up- c/o still not feeling good,dizzy,back pain Primary Visit Diagnosis:Acute cystitis without hematuria [N30.00] Other Visit Diagnoses:Viral illness [B34.9] Breast cancer screening by mammogram [Z12.31] Essential hypertension [I10] S/P coronary artery bypass graft x 2 [Z95.1] Elevated blood sugar [R73.9] Wheezing [R06.2] New onset of headaches [R51] Migraine without aura, not intractable, with status migrainosus [G43.001] Order(s):ROSALIA SCREENING [2134857] Order #: [id number] FUTURE CBC + DIFF [SQCBCDIF] Order #: [id number] FUTURE COMP METABOLIC PANEL [SQCMP] Order #: [id number] FUTURE RAPID PCR ASSAY FOR FLU/RSV [SQFLRSV] Order #: [id number] HGB A1C [VXHJN8V] Order #: [id number] FUTURE XR CHEST 2V FRONTAL/LAT [[id number]] Order #: [id number] FUTURE UA CHEMSTRIP ONLY [SQUA] Order #: [id number] FUTURE acetaminophen 325 mg-caffeine 40 mg-butalbital 50 mg (FIORICET) per tabletTake 1 tablet by mouth twice daily as needed.Disp: 60 tabletRfl: 2 Prescriptions as of 08/14/2018 Sig: [id number]* Take 1 tablet by mouth twice * NITROFURANTOIN MONOHYDRATE AND * Take 1 capsule by mouth twice* MONTELUKAST 10 MG TABLET Take 1 tablet by mouth once d* PANTOPRAZOLE 20 MG TABLET,DEL* Take 1 tablet by mouth once d* ACCU-CHEK INNA PLUS TEST STR* 1 Strip once daily. Dx: Insu* EZETIMIBE 10 MG TABLET TAKE ONE TABLET BY MOUTH ONCE* MUPIROCIN 2 % TOPICAL CREAM Apply 1 application to affect* METRONIDAZOLE 0.75 % TOPICAL * apply twice daily to affected* FLUTICASONE 50 MCG/ACTUATION * Use 2 Sprays in each nostril * NYSTATIN 100,000 UNIT/GRAM TO* Apply 1 application to affect* LEVOTHYROXINE 25 MCG TABLET Take 1 tablet by mouth once d* POTASSIUM CHLORIDE ER 20 MEQ * Take 1 tablet by mouth three * FUROSEMIDE 20 MG TABLET Take 1 tablet by mouth once d* CARVEDILOL 6.25 MG TABLET Take 1 tablet by mouth twice * APIXABAN 5 MG TABLET Take 1 tablet by mouth twice * ALBUTEROL SULFATE HFA 90 MCG/* Inhale 2 Puffs as instructed * BUDESONIDE-FORMOTEROL HFA 160* Inhale 2 Puffs as instructed * LEVALBUTEROL 0.63 MG/3 ML TANNA* Problem List As Of Date 08/14/2018 Noted Resolved Hyperlipidemia [E78.5] INVALID FOR*08/04/2015 More... Impaired fasting glucose [R73.01] INVALID FOR*05/05/2015 Hypertension [I10] INVALID FOR* More... Migraine without aura, not intractable, with st*INVALID FOR* GERD (gastroesophageal reflux disease) [K21.9] INVALID FOR* More... Bronchitis, chronic [J42] INVALID FOR* Cough [R05] INVALID FOR* Rhinitis, chronic [J31.0] INVALID FOR* Prediabetes [R73.03] INVALID FOR* More... Hypogammaglobulinemia (HCC) [D80.1] INVALID FOR* More... Mixed hyperlipidemia [E78.2] INVALID FOR* More... Atherosclerosis of squ[place] coronary artery of na*INVALID FOR* More... S/P coronary artery bypass graft x 2 [Z95.1] INVALID FOR* More... Paroxysmal atrial fibrillation (HCC) [I48.0] INVALID FOR* More... Ptosis of eyelid, right [H02.401] INVALID FOR*09/09/2017 Visit Notes: >> Cristina Quiroga LPN TueAug 14, 2018 9:48 AM Status: Signed Eye exam end august with Prescriptions ordered this encounter Disp Refills Start End [id number] 50* 60 t* 2 08/14/2018 Class: Print RX Route: ORAL Sig: Take 1 tablet by mouth twice daily as needed. Medications Discontinued During This Encounter acetaminophen 325 mg-caffeine 40 mg-* 60 t* 2 11/15/2017 08/14/2018 Class: Print RX Cmt: This prescription was filled on 11/03/2017. Any refills authorized will be placed on file. Route: ORAL Sig: Take 1 tablet by mouth twice daily as needed. Disc: Reason for discontinue is not on file. Encounter Status:Closed by MARY CHANG MD on 08/14/18 Observed: 08/10/2018 Status: F Source: [place] URINE CULTURE 4:00 PM [facility] Sp. Request/Comment: - Specimen received in preservative Culture Result - <10,000 CFU/ml Streptococcus agalactiae (Group B streptococcus) --> ABNORMAL ALERT Insignificant colony count. No further workup. --> ABNORMAL ALERT <10,000 CFU/ml Normal urogenital gabi Performed By: #### URCUL #### [facility] [address] [place], [place] [address] PROGRESS Observed: 08/10/2018 Status: COMPLETED Source: [place] 3:53 PM [facility] HNO ID: [id number] Author: Ankit (Stage Builder) Taz Service: (none) Author Type: Nurse Practitioner Type: Progress Notes Filed: 08/10/2018 5:03 PM Note Text: HPI/CC: 73 year old female presents with 1-2 week(s) of frequency, chills, flank pain located on left, nausea and diarrhea- episodic. Odor noted with urination.Denies dysuria, hematuria and fever. HOME HEALTH OUTREACH COORDINATOR: Negative for abnormal vaginal bleeding and abnormal vaginal discharge Patient also reports increased headaches without complaints of sore throat, ear pain/pressure, sinus pain, new or worsening cough or wheezing. Left flank pain that radiates down mid-gluteal region and extending over left hip and pelvis. Denies abdominal pain or constipation. UTI Hx: rare. Attempted nohting for symptoms. REVIEW OF SYSTEMS: as above otherwise non-contributory Reviewed relevant PMHx, PSHx, Social Hx, current medications and allergies. PHYSICAL EXAMINATION/OBJECTIVE DATA: BP 134/84 Pulse 92 Resp 24 Wt 99.8 kg (220 lb) BMI 41.57 kg/m? General appearance: ill appearing, alert and in no acute distress Back: positive findings: CVA tenderness Left- mild Lungs: Clear to auscultation no wheezing or rhonchi Heart: S1 and S2 normal, RRR without murmur Abdomen: soft, nondistended, normal bowel sounds.Tenderness:present, mild suprapubic Masses: none Organomegaly:none Urine dip results significant for anna marie esterase and hematuria. ASSESSMENT/PLAN: 1. Cystitis - ICD9: 595.9, ICD10: N30.90 (primary diagnosis) acute - UA positive for anna marie esterase and hematuria - Send urine for culture - Begin treatment with Macrobid 100 mg BID for 7 days - Patient education for prevention given 2. Flank pain - ICD9: 789.09, ICD10: R10.9 - Antibiotic treatment with macrobid - Labs of Urine analysis and culture - Follow up in 4 days or sooner if worsening of symptoms - UA DIP B/O - URINALYSIS WITH MICROSCOPIC - URINE CULTURE 3. Nonintractable episodic headache, unspecified headache type - ICD9: 784.0, ICD10: R51 - Hx of migraine headaches - No concerning exam findings, suspect exacerbation d/t acute infection - Begin treatment for UTI, follow up in 4 days as previously scheduled, sooner for new or worsening symptoms Prescription instructions reviewed with patient as applicable. Potential red flag symptoms discussed with the patient. Reviewed appropriate action plan to take if red flag symptoms occur. Patient agreeable to treatment plan. SUPA ColonOV Observed: 08/10/2018 Status: COMPLETED Source: [place] 3:20 PM [facility] Office Visit (INTMWS) ANTIONETTE WYNNE ([id number]) 1945 F Date Time Provider Department 08/10/18 3:20 PM ANKIT MCGHEE (AIDA) INTMWS During your visit today, we recorded the following information about you: Pulse Respiration Blood pressure Weight 92/minute 24/minute 134/84 99.8 kg Ankit Mcghee APRN.CNP 08/10/2018 5:03 PM Signed HPI/CC: 73 year old female presents with 1-2 week(s) of frequency, chills, flank pain located on left, nausea and diarrhea- episodic. Odor noted with urination.Denies dysuria, hematuria and fever. HOME HEALTH OUTREACH COORDINATOR: Negative for abnormal vaginal bleeding and abnormal vaginal discharge Patient also reports increased headaches without complaints of sore throat, ear pain/pressure, sinus pain, new or worsening cough or wheezing. Left flank pain that radiates down mid-gluteal region and extending over left hip and pelvis. Denies abdominal pain or constipation. UTI Hx: rare. Attempted nohting for symptoms. REVIEW OF SYSTEMS: as above otherwise non-contributory Reviewed relevant PMHx, PSHx, Social Hx, current medications and allergies. PHYSICAL EXAMINATION/OBJECTIVE DATA: BP 134/84 Pulse 92 Resp 24 Wt 99.8 kg (220 lb) BMI 41.57 kg/m? General appearance: ill appearing, alert and in no acute distress Back: positive findings: CVA tenderness Left- mild Lungs: Clear to auscultation no wheezing or rhonchi Heart: S1 and S2 normal, RRR without murmur Abdomen: soft, nondistended, normal bowel sounds.Tenderness:present, mild suprapubic Masses: none Organomegaly:none Urine dip results significant for anna marie esterase and hematuria. ASSESSMENT/PLAN: 1. Cystitis - ICD9: 595.9, ICD10: N30.90 (primary diagnosis) acute - UA positive for anna marie esterase and hematuria - Send urine for culture - Begin treatment with Macrobid 100 mg BID for 7 days - Patient education for prevention given 2. Flank pain - ICD9: 789.09, ICD10: R10.9 - Antibiotic treatment with macrobid - Labs of Urine analysis and culture - Follow up in 4 days or sooner if worsening of symptoms - UA DIP B/O - URINALYSIS WITH MICROSCOPIC - URINE CULTURE 3. Nonintractable episodic headache, unspecified headache type - ICD9: 784.0, ICD10: R51 - Hx of migraine headaches - No concerning exam findings, suspect exacerbation d/t acute infection - Begin treatment for UTI, follow up in 4 days as previously scheduled, sooner for new or worsening symptoms Prescription instructions reviewed with patient as applicable. Potential red flag symptoms discussed with the patient. Reviewed appropriate action plan to take if red flag symptoms occur. Patient agreeable to treatment plan. Ankit Mcghee APRN.CYCLE DIRECTOR Referring Provider: SELF [[id number]] Allergies As of Date: 08/10/2018 Noted Allergy Reaction ALBUTEROL 11/27/2015 14 - Other: See Comments Comments: Tachycardia. HEART RACES, SHORTNESS OF BREATH (PT USES XOPENEX INHALER AT HOME) BETA BLOCKERS (BETA-BLOCKERS (BET*11/16/2007 14 - Other: See Comments Comments: Wheezing. Dyspnea CODEINE 11/16/2007 11 - Vomiting 14 - Other: See Comments Comments: Nausea DOXYCYCLINE 11/19/2008 4 - Hives PENICILLINS 11/16/2007 2 - Rash 4 - Hives RED DYE 03/03/2015 5 - Intolerance Comments: headaches SULFA (SULFONAMIDE ANTIBIOTICS) 11/16/2007 2 - Rash 4 - Hives THEOPHYLLINE 11/16/2007 2 - Rash Date Reviewed: 08/10/2018 Reviewed by: Etelvina Schneider LPN - Fully Assessed Reason for Visit: Back Pain [12] Headaches [3461] Fatigue [46] Reason For Visit History Recorded Primary Visit Diagnosis:Cystitis [N30.90] Other Visit Diagnoses:Flank pain [R10.9] Nonintractable episodic headache, unspecified headache type [R51] Order(s):UA DIP B/O [4213901] Order #: [id number] nitrofurantoin monohydrate and macrocrystal (MACROBID) 100 mg capsuleTake 1 capsule by mouth twice daily for 7 days.Disp: 14 capsuleRfl: 0 URINALYSIS WITH MICROSCOPIC [SQUAWMIC] Order #: [id number]. #:[id number] URINE CULTURE [SQURCUL] Order #: [id number]. #:[id number] Prescriptions as of 08/10/2018 Sig: MONTELUKAST 10 MG TABLET Take 1 tablet by mouth once d* PANTOPRAZOLE 20 MG TABLET,DEL* Take 1 tablet by mouth once d* ACCU-CHEK INNA PLUS TEST STR* 1 Strip once daily. Dx: Insu* EZETIMIBE 10 MG TABLET TAKE ONE TABLET BY MOUTH ONCE* MUPIROCIN 2 % TOPICAL CREAM Apply 1 application to affect* METRONIDAZOLE 0.75 % TOPICAL * apply twice daily to affected* FLUTICASONE 50 MCG/ACTUATION * Use 2 Sprays in each nostril * [id number]* Take 1 tablet by mouth twice * NYSTATIN 100,000 UNIT/GRAM TO* Apply 1 application to affect* LEVOTHYROXINE 25 MCG TABLET Take 1 tablet by mouth once d* POTASSIUM CHLORIDE ER 20 MEQ * Take 1 tablet by mouth three * FUROSEMIDE 20 MG TABLET Take 1 tablet by mouth once d* CARVEDILOL 6.25 MG TABLET Take 1 tablet by mouth twice * APIXABAN 5 MG TABLET Take 1 tablet by mouth twice * ALBUTEROL SULFATE HFA 90 MCG/* Inhale 2 Puffs as instructed * BUDESONIDE-FORMOTEROL HFA 160* Inhale 2 Puffs as instructed * LEVALBUTEROL 0.63 MG/3 ML TANNA* NITROFURANTOIN MONOHYDRATE AND * Take 1 capsule by mouth twice* Problem List As Of Date 08/10/2018 Noted Resolved Hyperlipidemia [E78.5] INVALID FOR*08/04/2015 More... Impaired fasting glucose [R73.01] INVALID FOR*05/05/2015 Hypertension [I10] INVALID FOR* More... Migraine without aura, not intractable, with st*INVALID FOR* GERD (gastroesophageal reflux disease) [K21.9] INVALID FOR* More... Bronchitis, chronic [J42] INVALID FOR* Cough [R05] INVALID FOR* Rhinitis, chronic [J31.0] INVALID FOR* Prediabetes [R73.03] INVALID FOR* More... Hypogammaglobulinemia (HCC) [D80.1] INVALID FOR* More... Mixed hyperlipidemia [E78.2] INVALID FOR* More... Atherosclerosis of squaxin coronary artery of na*INVALID FOR* More... S/P coronary artery bypass graft x 2 [Z95.1] INVALID FOR* More... Paroxysmal atrial fibrillation (HCC) [I48.0] INVALID FOR* More... Ptosis of eyelid, right [H02.401] INVALID FOR*09/09/2017 Prescriptions ordered this encounter Disp Refills Start End NITROFURANTOIN MONOHYDRATE AND MACROCR* 14 c* 0 08/10/2018 08/17/2018 Route: ORAL Sig: Take 1 capsule by mouth twice daily for 7 days. Encounter Status:Closed by ANKIT MCGHEE CNP on 08/10/18 URINALYSIS WITH Collected: 08/10/2018 Status: F Source: [facility] 2:00 PM [facility] TYPE CODE TESTS RESULT OUT OF RANGE REFERENCE UNITS LAB UCOL Yellow Color Yellow LAB [facility] Clear Clarity Clear LAB UGLUC Negative mg/dL Glucose, Urine Negative LAB UBIL Negative Bilirubin, Urine Negative LAB UKET Negative Ketones, Urine Negative LAB USPG 1.005-1.030 Specific [place], Ur 1.005 LAB UHGB Negative Hemoglobin/Blood, Negative Ur LAB UPH 4.5-8.0 pH 6.0 LAB UPROT Negative mg/dL Protein, Urine Negative LAB UUROB Normal Urobilinogen Normal LAB UNITR Negative Nitrites Negative LAB ULKEST Negative Leukest Abnormal 2+ Alert LAB UCOM Comments SEE COMMENT Result Comment: N/A LAB UMCOM Urine SEE Ravinder Comment COMMENT Result Comment: Result rechecked. LAB UWBC 0-5 /HPF WBC 0-5 LAB URBC 0-3 /HPF RBC 0-3 LAB UEPI /HPF Epithelial SEE Cells COMMENT Result Comment: Few Squamous Epithelial Cells Few Non-Squamous Epithelial Cells Performed By: #### UAWMIC #### [facility] [address] [place], [place] [address] CNPTOUTREACH Observed: 08/01/2018 Status: COMPLETED Source: [place] 12:00 AM [facility] Patient Outreach (INTMWH) ANTIONETTE WYNNE ([id number]) 1945 F Date Time Provider Department 08/01/18 MARY CHANG [facility] During your visit today, we recorded the following information about you: Allergies As of Date: 08/01/2018 Noted Allergy Reaction ALBUTEROL 11/27/2015 14 - Other: See Comments Comments: Tachycardia. HEART RACES, SHORTNESS OF BREATH (PT USES XOPENEX INHALER AT HOME) BETA BLOCKERS (BETA-BLOCKERS (BET*11/16/2007 14 - Other: See Comments Comments: Wheezing. Dyspnea CODEINE 11/16/2007 11 - Vomiting 14 - Other: See Comments Comments: Nausea DOXYCYCLINE 11/19/2008 4 - Hives PENICILLINS 11/16/2007 2 - Rash 4 - Hives RED DYE 03/03/2015 5 - Intolerance Comments: headaches SULFA (SULFONAMIDE ANTIBIOTICS) 11/16/2007 2 - Rash 4 - Hives THEOPHYLLINE 11/16/2007 2 - Rash Date Reviewed: 05/17/2018 Reviewed by: Darby Prescott Ma - Fully Assessed Visit Diagnosis:Medication management [Z79.899] Order(s):LIPID PANEL BASIC [SQLIPB] Order #: [id number] FUTURE Prescriptions as of 08/01/2018 Sig: ACCU-CHEK INNA PLUS TEST STR* 1 Strip once daily. Dx: Insu* ALBUTEROL SULFATE HFA 90 MCG/* Inhale 2 Puffs as instructed * APIXABAN 5 MG TABLET Take 1 tablet by mouth twice * BUDESONIDE-FORMOTEROL HFA 160* Inhale 2 Puffs as instructed * CARVEDILOL 6.25 MG TABLET Take 1 tablet by mouth twice * EZETIMIBE 10 MG TABLET TAKE ONE TABLET BY MOUTH ONCE* FLUTICASONE 50 MCG/ACTUATION * Use 2 Sprays in each nostril * FUROSEMIDE 20 MG TABLET Take 1 tablet by mouth once d* LEVALBUTEROL 0.63 MG/3 ML TANNA* LEVOTHYROXINE 25 MCG TABLET Take 1 tablet by mouth once d* METRONIDAZOLE 0.75 % TOPICAL * apply twice daily to affected* MONTELUKAST 10 MG TABLET Take 1 tablet by mouth once d* MUPIROCIN 2 % TOPICAL CREAM Apply 1 application to affect* NYSTATIN 100,000 UNIT/GRAM TO* Apply 1 application to affect* PANTOPRAZOLE 20 MG TABLET,DEL* Take 1 tablet by mouth once d* POTASSIUM CHLORIDE ER 20 MEQ * Take 1 tablet by mouth three * X [id number]* Take 1 tablet by mouth twice * Problem List As Of Date 08/01/2018 Noted Resolved Hyperlipidemia [E78.5] INVALID FOR*08/04/2015 More... Impaired fasting glucose [R73.01] INVALID FOR*05/05/2015 Hypertension [I10] INVALID FOR* More... Migraine without aura, not intractable, with st*INVALID FOR* GERD (gastroesophageal reflux disease) [K21.9] INVALID FOR* More... Bronchitis, chronic [J42] INVALID FOR* Cough [R05] INVALID FOR* Rhinitis, chronic [J31.0] INVALID FOR* Prediabetes [R73.03] INVALID FOR* More... Hypogammaglobulinemia (HCC) [D80.1] INVALID FOR* More... Mixed hyperlipidemia [E78.2] INVALID FOR* More... Atherosclerosis of squaxin coronary artery of na*INVALID FOR* More... S/P coronary artery bypass graft x 2 [Z95.1] INVALID FOR* More... Paroxysmal atrial fibrillation (HCC) [I48.0] INVALID FOR* More... Ptosis of eyelid, right [H02.401] INVALID FOR*09/09/2017 Encounter Status:Closed by ELIZABETH MENDOZAUSER on 09/01/18 HEMOGLOBIN A1C Collected: 06/15/2018 Status: F Source: [place] 1:26 PM [facility] TYPE CODE TESTS RESULT OUT OF REFERENCE UNITS RANGE LAB HGBA1C 4.3-5.6 % High Hemoglobin A1c 6.2 LAB HBA0 mg/dL Est. Average Glucose 131 Result Comment: eAG: (Estimated average glucose) is a calculated value from HgbA1c and is field representatives director of the average blood glucose level in the last 2-3 month period. Performed By: #### HBA1C, CMP, TSH #### [facility] [address] [place], [place] [address] COMP METABOLIC PANEL Collected: 06/15/2018 Status: F Source: [place] 1:26 PM [facility] TYPE CODE TESTS RESULT OUT OF REFERENCE UNITS RANGE LAB TP 6.3-8.0 g/dL Protein, Total 6.9 LAB ALB 3.9-4.9 g/dL Albumin 4.1 LAB CA 8.5-10.2 mg/dL Calcium, Total 9.4 LAB TBIL 0.2-1.3 mg/dL Bilirubin, Total 0.4 LAB ALKP 34-123 U/L Alkaline Phosphatase 88 LAB AST 13-35 U/L AST 21 LAB GLU 74-99 mg/dL Glucose 87 Result Comment: The [place] Diabetes [employer] (ADA) provides guidance for cutoff values for fasting glucose and random glucose. The ADA defines fasting as no caloric intake for at least 8 hours. Fas ting plasma glucose results between 100 to 125 mg/dL indicate increased risk for diabetes (prediabetes). Fasting plasma glucose results greater than or equal to 126 mg/dL meet the criteria for diagnosis of diabetes. In the absence of unequivocal hyperglycemia, results should be confirmed by repeat testing. In a patient with classic symptoms of hyperglycemia or hyperglycemic crisis, random plasma glucose results greater than or equal to 200 mg/dL meet the criteria for diagnosis of diabetes. Reference: Standards of Medical Care in Diabetes 2016, [place] Diabetes Association. Diabetes Care. 2016.39(Suppl 1). LAB BUN 7-21 mg/dL BUN 14 LAB CRET 0.58-0.96 mg/dL Creatinine 0.69 LAB NA 136-144 mmol/L Sodium 138 LAB K 3.7-5.1 mmol/L Potassium 4.5 LAB CL 97-105 mmol/L Chloride 100 LAB CO2 22-30 mmol/L CO2 22 LAB AGAP 9-18 mmol/L Anion Gap 16 LAB ALT 7-38 U/L ALT 15 LAB GFRAA eGFR- Amer. >60 LAB GFRNAA . eGFR-All Other Races >60 Result Comment: eGFR (Estimated GFR) Units of measure: mL/min/1.73 meters squared eGFR is derived from the reexpressed MDRD Study equation using the following parameters: serum creatinine, age, gender and race. The creatinine assay has been calibrated to be traceable to IDMS. An eGFR <60 mL/min/1.73m2 for >3 months is consistent with chronic kidney disease. Refer to KDOQI guidelines for clinical interpretation. In patients with unstable renal function, e.g. those with acute kidney injury, the eGFR may not accurately reflect actual GFR. Performed By: #### HBA1C, CMP, TSH #### [facility] [employer] [address] [place], [place] [address] TSH Collected: 06/15/2018 Status: F Source: [place] 1:26 PM [facility] TYPE CODE TESTS RESULT OUT OF RANGE REFERENCE UNITS LAB TSH 0.400-5.500 uU/mL TSH 3.610 Performed By: #### HBA1C, CMP, TSH #### [facility] [employer] [address] [place], [place] [address] PROGRESS Observed: 05/17/2018 Status: COMPLETED Source: [place] 10:09 AM [facility] ID: [id number] Author: Ankit Mcghee Service: (none) Author Type: Nurse Practitioner Type: Progress Notes Filed: 05/17/2018 12:33 PM Note Text: CC: Patient presents with: F/U 3 Month HPI Antionette Wynne is a 72 year old female who presents today for 3 month follow up and request for acid reflux medication. HTN: Ms. Wynne indicates that she is feeling well and denies any symptoms referable to elevated blood pressure. Specifically denies headache, chest pain, palpitations Patient denies any side effects of her medication(s) and is compliant with their regimen. Antionette likes to exercise by walking on treadmill, elipitical fitness trainer and recumbent bike. She watches her diet for sodium, low fat and low cholesterol most of the time. Hyperlipidemia. Reviewed patient's most recent labs ordered by cardiology. Total cholesterol is elevated at 266, triglycerides at 224 and LDL 164. Discussed patient's increased 10 year risk given her medical hx, age and co-morbidities and recommendation for high intensity statin therapy. Patient would prefer to avoid statin treatment and focus on diet and omega 3 supplements. As she reports years ago injury to her liver and was told to avoid medications that are metabolized by the liver including tylenol. Afib:stable. On Eliquis Followed by cardiology, last visit 04/10/18 where patient's amiodarone was discontinued at patient's request. Discussion was had about closer thyroid monitoring and potential need to restart in the future. TSH elevated per [facility] records at 5.61 on 04/21/18. Currently tolerating synthroid 25mcg daily. Asthma:Followed by pulmonology, Spirometry testing completed 03/13/18. Patient with diagnosis of Mild persistent asthma without recent exacerbation or hospitalization. Continued on Symbicort and albuterol inhaler as needed. Patient reports rescue inhaler use down to a few times a week, mostly with increased temperature and humidity. GERD: patient has since stopped prevacid since our last visit. Reports having increased cough, irritated throat and heartburn regularly. Told by ENT that she has GERD and needs medications. She is requesting something inexpensive and safe to take with her other medications. BARTOLO: Compliant with cpap. Follows with sleep medicine. REVIEW OF SYSTEMS General: no fevers, no chills, no night sweats, no recurrent infections, no change in appetite, no change in energy and no significant changes in weight HEENT: no frequent or significant headaches, no changes in hearing, no visual changes, no nose bleeds, no sinus or nasal problems Neck: no lumps, no pain and no swelling Respiratory: no wheezing, no hemoptysis, See HPI Cardiovascular: no chest pain, no chest pressure, no palpitations and Positive for: intermittent swelling GI: No nausea, vomiting, or diarrhea and Positive for heart burn : No history of dysuria, frequency or incontinence Neurologic: No headache, weakness, numbness, tingling, neck stiffness, tremor, vertigo, dizziness, memory loss, syncope. PAST MEDICAL HISTORY Diagnosis Date - Acute non-ST segment elevation myocardial infarction (HCC) - Bronchitis, chronic (HCC) 07/13/2012 - Coronary arteriosclerosis - Cough 07/13/2012 - Esophageal reflux - Essential hypertension, benign - Generalized osteoarthrosis, unspecified site - Hypogammaglobulinemia ([facility]) - Immunodeficiency disorder ([facility]) - Impaired fasting glucose - Known medical problems History of coronary artery bypass grafting three vessel bypass - Left ventricular systolic dysfunction mild - Obesity - Obstructive sleep apnea syndrome - Other and unspecified hyperlipidemia - Restrictive lung disease 01/13/2018 - Rhinitis, chronic 07/13/2012 - Type 2 diabetes mellitus (HCC) - Unspecified asthma(493.90) - Unspecified sinusitis (chronic) PAST SURGICAL HISTORY Procedure Laterality Date - CARDIAC CATH - CHOLECYSTECTOMY HX 90s gallbladder removed - CORONARY ARTERY BYPASS GRAFT 11/11/2015 - EYE SURGERY HX in [place]- eye ablation - F TOTAL ABDOMINAL HYSTERECTOMY - HYSTERECTOMY HX 1979 partial hysterectomy, still has ovaries - PAST SURGICAL HISTORY OF 10/2007 ptosis - PAST SURGICAL HISTORY OF 11/12/2015 CABG - SEPTOPLASTY 1984 nasal septum - STABISMUS SURG,ONE VERT MUSCLE 2011 ALLERGIES Albuterol; Beta Blockers [Beta-Blockers (Beta-Adrenergic Blocking Agts)]; Codeine; Doxycycline; Penicillins; Red Dye; Sulfa (Sulfonamide Antibiotics); Theophylline MEDICATIONS ezetimibe (ZETIA) 10 mg tablet TAKE ONE TABLET BY MOUTH ONCE DAILY mupirocin (BACTROBAN) 2 % cream Apply 1 application to affected area three times daily. metroNIDAZOLE (METROGEL) 0.75 % Topical Gel apply twice daily to affected area fluticasone (FLONASE) 50 mcg/actuation nasal spray Use 2 Sprays in each nostril once daily. Rinse mouth after use. acetaminophen 325 mg-caffeine 40 mg-butalbital 50 mg (FIORICET) per tablet Take 1 tablet by mouth twice daily as needed. nystatin (MYCOSTATIN) powder Apply 1 application to affected area four times daily as needed. ACCU-CHEK INNA PLUS TEST STRP test strip 1 Strip once daily. Dx: Insulin: no amiodarone (PACERONE) 200 mg tablet Take 0.5 tablets by mouth twice daily. levothyroxine (LEVOXYL) 25 mcg tablet Take 1 tablet by mouth once daily. Take on empty stomach. For Thyroid montelukast (SINGULAIR) 10 mg tablet Take 1 tablet by mouth once daily. potassium chloride 20 mEq TbER Take 1 tablet by mouth three times daily. furosemide (LASIX) 20 mg tablet Take 1 tablet by mouth once daily. carvedilol (COREG) 6.25 mg tablet Take 1 tablet by mouth twice daily. apixaban (ELIQUIS) 5 mg tab tab(s) Take 1 tablet by mouth twice daily. albuterol HFA (PROAIR HFA) 90 mcg/actuation inhaler Inhale 2 Puffs as instructed every 4 hours as needed. budesonide-formoterol (SYMBICORT) 160-4.5 mcg/actuation inhaler Inhale 2 Puffs as instructed twice daily. levalbuterol (XOPENEX) 0.63 mg/3 mL nebulizer solution FAMILY HISTORY Problem Relation Age of Onset - Arthritis Mother - Heart Mother - other (anemia) Mother - Heart Father - Diabetes Father - Stroke Father - Coronary Artery Disease Father - Cancer Maternal Grandfather kidney and stomach - Heart Sister - Heart Brother - COPD Sister - Heart Daughter - Hypertension Son Social History Substance Use Topics - Smoking status: Never Smoker - Smokeless tobacco: Never Used - Alcohol use Yes Comment: twice per month PHYSICAL EXAM BP 136/84 Pulse 64 Temp 36.4 ?C (97.5 ?F) (Temporal Artery) Resp 16 Wt 98 kg (216 lb) SpO2 98% BMI 40.81 kg/m? General Appearance: well appearing, in no acute distress, alert Skin: Skin color, texture, turgor normal for age; Head: normocephalic, atraumatic Eyes: conjunctiva pink and moist, no icterus, sclera white, non-injected Ears: external ears normal to inspection and palpation, canals clear, Left tympanic membrane normal. , Right tympanic membrane normal Neck: Thyroid normal size and symmetric without palpable nodules, No adenopathy Oropharynx: lips normal without lesions, tongue midline and normal, soft palate, uvula, and tonsils normal Positive for mild oropharyngeal erythema Lungs: Lungs clear to auscultation. No wheezing, rhonchi, rales Heart: RRR without murmur, gallop, or rubs. No ectopy Bilateral Lower Extremities: no edema DIABETIC FOOT EXAM due on 1954 BP CONTROLLED (<130/80) due on 1962 DTAP,TDAP,TD(1 - Tdap) due on 1963 URINE ALBUMIN:CREATININE RATIO due on 02/22/2016 DILATED RETINAL EXAM due on 06/26/2016 COLORECTAL CANCER SCREENING,SEE MODIFIER due on 06/21/2017 MAMMOGRAM due on 08/23/2017 HBA1C due on 01/23/2018 INFLUENZA(1) due on 05/13/2018 STEROID INHALER ADHERENCE due on 06/12/2018 LDL CHOLESTEROL due on 07/26/2018 ANNUAL PCP TEAM CHRONIC DISEASE VISIT due on 02/14/2019 BONE DENSITY Completed ADULT PREVNAR-13 Completed PNEUMOVAX AGE 65 AND OVER WITH 5YR LOOKBACK Completed ASSESSMENT/PLAN: 1. Essential hypertension - ICD9: 401.9, ICD10: I10 (primary diagnosis) - good control - Continue current medication(s) - Check cmp - Encouraged dietary sodium restriction/DASH diet - Recommended regular aerobic exercise. - Recommend home blood pressure monitoring, to bring results in on next visit - Goal of BP <130/80 - Recommended no refined sugar, low refined starch, healthy oil intake (olive oil), healthy protein (fish) along the lines of the Mediterranean diet. - COMP METABOLIC PANEL 2. Mixed hyperlipidemia - ICD9: 272.2, ICD10: E78.2 - suboptimal control - Begin treatment with diet and exercise and omega3 - Encouraged following a low fat, low cholesterol diet. - Discussed the benefits of regular aerobic exercise and weight loss. - Check fasting lipid panel in 3 months and ALT today. - Follow up in 12 weeks. - Encouraged following a low carbohydrate, healthy oil intake diet. 3. Paroxysmal atrial fibrillation (HCC) - ICD9: 427.31, ICD10: I48.0 - Stable - On eliquis, followed by cardiology - Amiodarone d/c'd per patient's request by cardiology, 4. Mild persistent asthma without complication - ICD9: 493.90, ICD10: J45.30 Mild intermittent Asthma stable - Continue current meds - Avoidance of triggers recommended - Follow up in 3 months - Flu shot in the fall recommended 5. Gastroesophageal reflux disease without esophagitis - ICD9: 530.81, ICD10: K21.9 - Discussed lifestyle modifications including losing weight, limiting caffeine, no meals three hours before sleep and head of bed elevation - Begin treatment with Protonix QD - Follow up in 3months 6. Prediabetes - ICD9: 790.29, ICD10: R73.03 - ACCU-CHEK INNA PLUS TEST STRIPS - HGB A1C 7. BARTOLO (obstructive sleep apnea) - ICD9: 327.23, ICD10: G47.33 - Compliant - Continue with cpap - Follow up with sleep medicine 8. Hypothyroidism, unspecified type - ICD9: 244.9, ICD10: E03.9 - Instructed patient on importance of taking on an empty stomach either first thing in the morning or at bedtime. - check TSH today - Follow up in 3 months - TSH NASRIND Ankit Mcghee APRN.CNP Prescription instructions reviewed with patient as applicable. Potential red flag symptoms discussed with the patient. Reviewed appropriate action plan to take if red flag symptoms occur. Patient agreeable to treatment plan. CNOV Observed: 05/17/2018 Status: COMPLETED Source: [place] 10:00 AM [facility] Office Visit (INTMWS) ANTIONETTE WYNNE ([id number]) 1945 F Date Time Provider Department 05/17/18 10:00 AM ANKIT MCGHEE (AIDA) INTMWS During your visit today, we recorded the following information about you: Temperature Pulse Respiration Blood pressure 97.5 degrees 64/minute 16/minute 136/84 Weight 98 kg Ankit Mcghee APRN.AIDA 05/17/2018 12:33 PM Signed CC: Patient presents with: F/U 3 Month HPI Antionette Wynne is a 72 year old female who presents today for 3 month follow up and request for acid reflux medication. HTN: Ms. Wynne indicates that she is feeling well and denies any symptoms referable to elevated blood pressure. Specifically denies headache, chest pain, palpitations Patient denies any side effects of her medication(s) and is compliant with their regimen. Antionette likes to exercise by walking on treadmill, elipitical fitness trainer and recumbent bike. She watches her diet for sodium, low fat and low cholesterol most of the time. Hyperlipidemia. Reviewed patient's most recent labs ordered by cardiology. Total cholesterol is elevated at 266, triglycerides at 224 and LDL 164. Discussed patient's increased 10 year risk given her medical hx, age and co-morbidities and recommendation for high intensity statin therapy. Patient would prefer to avoid statin treatment and focus on diet and omega 3 supplements. As she reports years ago injury to her liver and was told to avoid medications that are metabolized by the liver including tylenol. Afib:stable. On Eliquis Followed by cardiology, last visit 04/10/18 where patient's amiodarone was discontinued at patient's request. Discussion was had about closer thyroid monitoring and potential need to restart in the future. TSH elevated per [facility] records at 5.61 on 04/21/18. Currently tolerating synthroid 25mcg daily. Asthma:Followed by pulmonology, Spirometry testing completed 03/13/18. Patient with diagnosis of Mild persistent asthma without recent exacerbation or hospitalization. Continued on Symbicort and albuterol inhaler as needed. Patient reports rescue inhaler use down to a few times a week, mostly with increased temperature and humidity. GERD: patient has since stopped prevacid since our last visit. Reports having increased cough, irritated throat and heartburn regularly. Told by ENT that she has GERD and needs medications. She is requesting something inexpensive and safe to take with her other medications. BARTOLO: Compliant with cpap. Follows with sleep medicine. REVIEW OF SYSTEMS General: no fevers, no chills, no night sweats, no recurrent infections, no change in appetite, no change in energy and no significant changes in weight HEENT: no frequent or significant headaches, no changes in hearing, no visual changes, no nose bleeds, no sinus or nasal problems Neck: no lumps, no pain and no swelling Respiratory: no wheezing, no hemoptysis, See HPI Cardiovascular: no chest pain, no chest pressure, no palpitations and Positive for: intermittent swelling GI: No nausea, vomiting, or diarrhea and Positive for heart burn : No history of dysuria, frequency or incontinence Neurologic: No headache, weakness, numbness, tingling, neck stiffness, tremor, vertigo, dizziness, memory loss, syncope. PAST MEDICAL HISTORY Diagnosis Date - Acute non-ST segment elevation myocardial infarction (HCC) - Bronchitis, chronic ([facility]) 07/13/2012 - Coronary arteriosclerosis - Cough 07/13/2012 - Esophageal reflux - Essential hypertension, benign - Generalized osteoarthrosis, unspecified site - Hypogammaglobulinemia ([facility]) - Immunodeficiency disorder ([facility]) - Impaired fasting glucose - Known medical problems History of coronary artery bypass grafting three vessel bypass - Left ventricular systolic dysfunction mild - Obesity - Obstructive sleep apnea syndrome - Other and unspecified hyperlipidemia - Restrictive lung disease 01/13/2018 - Rhinitis, chronic 07/13/2012 - Type 2 diabetes mellitus ([facility]) - Unspecified asthma(493.90) - Unspecified sinusitis (chronic) PAST SURGICAL HISTORY Procedure Laterality Date - CARDIAC CATH - CHOLECYSTECTOMY HX 90s gallbladder removed - CORONARY ARTERY BYPASS GRAFT 11/11/2015 - EYE SURGERY HX in [place]- eye ablation - F TOTAL ABDOMINAL HYSTERECTOMY - HYSTERECTOMY HX 1979 partial hysterectomy, still has ovaries - PAST SURGICAL HISTORY OF 10/2007 ptosis - PAST SURGICAL HISTORY OF 11/12/2015 CABG - SEPTOPLASTY 1983 nasal septum - STABISMUS SURG,ONE VERT MUSCLE 2011 ALLERGIES Albuterol; Beta Blockers [Beta-Blockers (Beta-Adrenergic Blocking Agts)]; Codeine; Doxycycline; Penicillins; Red Dye; Sulfa (Sulfonamide Antibiotics); Theophylline MEDICATIONS ezetimibe (ZETIA) 10 mg tablet TAKE ONE TABLET BY MOUTH ONCE DAILY mupirocin (BACTROBAN) 2 % cream Apply 1 application to affected area three times daily. metroNIDAZOLE (METROGEL) 0.75 % Topical Gel apply twice daily to affected area fluticasone (FLONASE) 50 mcg/actuation nasal spray Use 2 Sprays in each nostril once daily. Rinse mouth after use. acetaminophen 325 mg-caffeine 40 mg-butalbital 50 mg (FIORICET) per tablet Take 1 tablet by mouth twice daily as needed. nystatin (MYCOSTATIN) powder Apply 1 application to affected area four times daily as needed. ACCU-CHEK INNA PLUS TEST STRP test strip 1 Strip once daily. Dx: Insulin: no amiodarone (PACERONE) 200 mg tablet Take 0.5 tablets by mouth twice daily. levothyroxine (LEVOXYL) 25 mcg tablet Take 1 tablet by mouth once daily. Take on empty stomach. For Thyroid montelukast (SINGULAIR) 10 mg tablet Take 1 tablet by mouth once daily. potassium chloride 20 mEq TbER Take 1 tablet by mouth three times daily. furosemide (LASIX) 20 mg tablet Take 1 tablet by mouth once daily. carvedilol (COREG) 6.25 mg tablet Take 1 tablet by mouth twice daily. apixaban (ELIQUIS) 5 mg tab tab(s) Take 1 tablet by mouth twice daily. albuterol HFA (PROAIR HFA) 90 mcg/actuation inhaler Inhale 2 Puffs as instructed every 4 hours as needed. budesonide-formoterol (SYMBICORT) 160-4.5 mcg/actuation inhaler Inhale 2 Puffs as instructed twice daily. levalbuterol (XOPENEX) 0.63 mg/3 mL nebulizer solution FAMILY HISTORY Problem Relation Age of Onset - Arthritis Mother - Heart Mother - other (anemia) Mother - Heart Father - Diabetes Father - Stroke Father - Coronary Artery Disease Father - Cancer Maternal Grandfather kidney and stomach - Heart Sister - Heart Brother - COPD Sister - Heart Daughter - Hypertension Son Social History Substance Use Topics - Smoking status: Never Smoker - Smokeless tobacco: Never Used - Alcohol use Yes Comment: twice per month PHYSICAL EXAM BP 136/84 Pulse 64 Temp 36.4 ?C (97.5 ?F) (Temporal Artery) Resp 16 Wt 98 kg (216 lb) SpO2 98% BMI 40.81 kg/m? General Appearance: well appearing, in no acute distress, alert Skin: Skin color, texture, turgor normal for age; Head: normocephalic, atraumatic Eyes: conjunctiva pink and moist, no icterus, sclera white, non-injected Ears: external ears normal to inspection and palpation, canals clear, Left tympanic membrane normal. , Right tympanic membrane normal Neck: Thyroid normal size and symmetric without palpable nodules, No adenopathy Oropharynx: lips normal without lesions, tongue midline and normal, soft palate, uvula, and tonsils normal Positive for mild oropharyngeal erythema Lungs: Lungs clear to auscultation. No wheezing, rhonchi, rales Heart: RRR without murmur, gallop, or rubs. No ectopy Bilateral Lower Extremities: no edema DIABETIC FOOT EXAM due on 1954 BP CONTROLLED (<130/80) due on 1962 DTAP,TDAP,TD(1 - Tdap) due on 1963 URINE ALBUMIN:CREATININE RATIO due on 02/22/2016 DILATED RETINAL EXAM due on 06/26/2016 COLORECTAL CANCER SCREENING,SEE MODIFIER due on 06/21/2017 MAMMOGRAM due on 08/23/2017 HBA1C due on 01/23/2018 INFLUENZA(1) due on 05/13/2018 STEROID INHALER ADHERENCE due on 06/12/2018 LDL CHOLESTEROL due on 07/26/2018 ANNUAL PCP TEAM CHRONIC DISEASE VISIT due on 02/14/2019 BONE DENSITY Completed ADULT PREVNAR-13 Completed PNEUMOVAX AGE 65 AND OVER WITH 5YR LOOKBACK Completed ASSESSMENT/PLAN: 1. Essential hypertension - ICD9: 401.9, ICD10: I10 (primary diagnosis) - good control - Continue current medication(s) - Check cmp - Encouraged dietary sodium restriction/DASH diet - Recommended regular aerobic exercise. - Recommend home blood pressure monitoring, to bring results in on next visit - Goal of BP <130/80 - Recommended no refined sugar, low refined starch, healthy oil intake (olive oil), healthy protein (fish) along the lines of the Mediterranean diet. - COMP METABOLIC PANEL 2. Mixed hyperlipidemia - ICD9: 272.2, ICD10: E78.2 - suboptimal control - Begin treatment with diet and exercise and omega3 - Encouraged following a low fat, low cholesterol diet. - Discussed the benefits of regular aerobic exercise and weight loss. - Check fasting lipid panel in 3 months and ALT today. - Follow up in 12 weeks. - Encouraged following a low carbohydrate, healthy oil intake diet. 3. Paroxysmal atrial fibrillation (HCC) - ICD9: 427.31, ICD10: I48.0 - Stable - On eliquis, followed by cardiology - Amiodarone d/c'd per patient's request by cardiology, 4. Mild persistent asthma without complication - ICD9: 493.90, ICD10: J45.30 Mild intermittent Asthma stable - Continue current meds - Avoidance of triggers recommended - Follow up in 3 months - Flu shot in the fall recommended 5. Gastroesophageal reflux disease without esophagitis - ICD9: 530.81, ICD10: K21.9 - Discussed lifestyle modifications including losing weight, limiting caffeine, no meals three hours before sleep and head of bed elevation - Begin treatment with Protonix QD - Follow up in 3months 6. Prediabetes - ICD9: 790.29, ICD10: R73.03 - ACCU-CHEK INNA PLUS TEST STRIPS - HGB A1C 7. BARTOLO (obstructive sleep apnea) - ICD9: 327.23, ICD10: G47.33 - Compliant - Continue with cpap - Follow up with sleep medicine 8. Hypothyroidism, unspecified type - ICD9: 244.9, ICD10: E03.9 - Instructed patient on importance of taking on an empty stomach either first thing in the morning or at bedtime. - check TSH today - Follow up in 3 months - TSH BLD Ankit Mcghee APRN.CNP Prescription instructions reviewed with patient as applicable. Potential red flag symptoms discussed with the patient. Reviewed appropriate action plan to take if red flag symptoms occur. Patient agreeable to treatment plan. Ankit Mcghee APRN.CNP 05/17/2018 10:42 AM Signed Your cholesterol was elevated and your HDL or good cholesterol was low. Decreasing sugars and greasy foods, Increase exercise to 30-45 minutes a day x 5 days a week, Increase fiber and omega-3 fatty acids (fish oil 2000 mg a day) in your diet GUIDELINES FOR LOW CHOLESTEROL, LOW TRIGLYCERIDE DIETS FOODS TO USE MEATS/FISH - Choose lean meats (chicken, turkey, veal, and non-fatty cuts of beef with excess fat trimmed; one serving = 3 oz. of cooked meat). Also, fresh or frozen fish, canned fish packed in water, and shellfish (lobster, crab, shrimp, oysters). Limit use to no more than one serving of one of these per week. Shellfish are high in cholesterol but low in saturated fat and should be used sparingly. Meats and fish should be broiled (stout or oven) or baked on a rack. EGGS - Egg substitutes and egg whites (use freely). Egg yolks (limit two per week). FRUITS - Eat three servings of fresh fruit per day (1 serving = 1/2 cup). Be sure to have at least one citrus fruit daily. Frozen or canned fruit with no sugar or syrup added may be used. VEGETABLES - Most vegetables are not limited (see Foods to Avoid). One dark green (string beans, escarole) or one deep yellow (squash) vegetable is recommended daily. Cauliflower, broccoli, and celery, as well as potato skins, are recommended for their fiber content (fiber is associated with cholesterol reduction). It is preferable to steam vegetables, but they may be boiled, strained, or braised with polyunsaturated vegetable oil (see below). BEANS - Dried peas or beans (1 serving = 1/2 cup) may be used as a bread substitute. NUTS - Almonds, walnuts, and peanuts may be used sparingly (1 serving = 1 tablespoon). Use pumpkin, sesame, or sunflower seeds. BREADS/GRAINS - One roll or one slice of whole grain or enriched bread may be used, or three soda crackers or four pieces of carlito toast as a substitute. Spaghetti, rice or noodles (1/2 cup) or 1/2 large ear of corn may be used as a bread substitute. In preparing these foods, do not use butter or shortening; use soft margarine. Also use egg and sugar substitutes. Choose high fiber grains, such as oats and whole wheat. CEREALS - Use 1/2 cup of hot cereal or 1/4 cup of cold cereal per day. Add a sugar substitute if desired, with 99% fat-free or skim milk. MILK PRODUCTS - Always use 99% fat-free or skim milk, dairy products such as low-fat cheeses (sesay's, uncreamed diet cottage), low-fat yogurt, and powdered skim milk. FATS/OILS - Use soft (not stick) margarine, vegetable oils that are high in polyunsaturated fats (such as safflower, sunflower, soybean, corn, and cottonseed). Always refrigerate meat drippings to harden the fat and remove it before preparing gravies. DESSERTS/SNACKS - Limit to two servings per day; substitute each serving for a bread/cereal serving; ice milk or water sherbet (1/4 cup); unflavored gelatin or gelatin flavored with sugar substitute (1/2 cup); pudding prepared with skim milk (1/2 cup); egg white souffles; unbuttered popcorn (1 1/2 cups). Substitute carob for chocolate. BEVERAGES - Fresh fruit juices (limit to 4 oz. per day); black coffee; plain or herbal teas; soft drinks with sugar substitutes; club soda, preferably salt-free; cocoa made with skim milk or nonfat dried milk and water (sugar substitute added, if desired); clear broth. Alcohol - limit to two servings per day (see Foods to Avoid). MISCELLANEOUS - You may use the following freely: vinegar; spices; herbs; nonfat bouillon; mustard; Worcestershire sauce; soy sauce; flavoring essence. FOODS TO AVOID MEATS/FISH - Marbled beef, pork, leiva, sausage and other pork products; fatty fowl (duck, goose); skin and fat of turkey and chicken; processed meats; luncheon meats (salami, bologna); frankfurters and fast food hamburgers (they are loaded with fat); organ meats (kidneys, liver); canned fish packed in oil. EGGS - Limit egg yolks to two per week. FRUITS - Coconuts (rich in saturated fat) VEGETABLES - Avoid avocados. Starchy vegetables (potatoes, corn linton beans, dried peas, beans) may be used only if they are substitutes for a serving of bread or cereal. (Baked potato skin, however, is desirable for its fiber content). BEANS - Commercial baked beans with sugar and/or pork added. NUTS - Avoid nuts. Limit peanuts and walnuts to one tablespoonful per day. BREADS/GRAINS - Any baked goods with shortening and/or sugar. Commercial mixes with dried eggs and whole milk. Avoid sweet rolls, doughnuts, breakfast pastries (Pashto), and sweetened packaged cereals (the added sugar converts readily to triglycerides). MILK PRODUCTS - Whole milk and whole-milk packaged goods; cream; ice cream; whole-milk puddings, yogurt, or cheeses; nondairy cream substitutes. FATS/OILS - Butter, lard, animal fats, leiva drippings, gravies, cream sauces, as well as palm and coconut oils. All these are high in saturated fats. Examine labels on cholesterol free products for hydrogenated fats. (These are oils that have been hardened into solids and in the process have become saturated.) DESSERTS/SNACKS - Fried snack foods like potato chips; chocolate; candies in general; jams, jellies, syrups; whole-milk puddings; ice cream and milk sherbets; hydrogenated peanut butter. BEVERAGES - Sugared fruit juices and soft drinks; cocoa made with whole milk and/or sugar. When using alcohol (1 oz. liquor, 5 oz. beer, or 2 1/2 oz. dry table wine per serving), one serving must be substituted for one bread or cereal serving (limit two servings of alcohol per day). SPECIAL NOTES: 1. Remember that even non-limited foods should be used in moderation. 2. While on a cholesterol-lowering diet, be sure to avoid animal fats and marbled meats. 3. While on a triglyceride-lowering diet, be sure to avoid sweets and to control the amount of carbohydrates you eat (starchy foods such as flower, bread, or potatoes). 4. Buy a good low-fat cookbook, such as the one published by the [employer]. 5. Consult your physician if you have any questions. Referring Provider: MARY CHANG [[id number]] Allergies As of Date: 05/17/2018 Noted Allergy Reaction ALBUTEROL 11/27/2015 14 - Other: See Comments Comments: Tachycardia. HEART RACES, SHORTNESS OF BREATH (PT USES XOPENEX INHALER AT HOME) BETA BLOCKERS (BETA-BLOCKERS (BET*11/16/2007 14 - Other: See Comments Comments: Wheezing. Dyspnea CODEINE 11/16/2007 11 - Vomiting 14 - Other: See Comments Comments: Nausea DOXYCYCLINE 11/19/2008 4 - Hives PENICILLINS 11/16/2007 2 - Rash 4 - Hives RED DYE 03/03/2015 5 - Intolerance Comments: headaches SULFA (SULFONAMIDE ANTIBIOTICS) 11/16/2007 2 - Rash 4 - Hives THEOPHYLLINE 11/16/2007 2 - Rash Date Reviewed: 05/17/2018 Reviewed by: Darby Prescott Ma - Fully Assessed Reason for Visit: F/U 3 Month [443] Primary Visit Diagnosis:Essential hypertension [I10] Other Visit Diagnoses:Mixed hyperlipidemia [E78.2] Paroxysmal atrial fibrillation (HCC) [I48.0] Mild persistent asthma without complication [J45.30] Gastroesophageal reflux disease without esophagitis [K21.9] Prediabetes [R73.03] BARTOLO (obstructive sleep apnea) [G47.33] Hypothyroidism, unspecified type [E03.9] Order(s):pantoprazole DR (PROTONIX) 20 mg tabletTake 1 tablet by mouth once daily.Disp: 30 tabletRfl: 5 ACCU-CHEK INNA PLUS TEST STRP test strip1 Strip once daily. Dx: Insulin: noDisp: 50 StripRfl: 12 COMP METABOLIC PANEL [SQCMP] Order #: [id number] FUTURE HGB A1C [SAMHI2P] Order #: [id number] FUTURE TSH BLD [SQTSH] Order #: [id number] FUTURE Prescriptions as of 05/17/2018 Sig: PANTOPRAZOLE 20 MG TABLET,DEL* Take 1 tablet by mouth once d* ACCU-CHEK INNA PLUS TEST STR* 1 Strip once daily. Dx: Insu* EZETIMIBE 10 MG TABLET TAKE ONE TABLET BY MOUTH ONCE* MUPIROCIN 2 % TOPICAL CREAM Apply 1 application to affect* METRONIDAZOLE 0.75 % TOPICAL * apply twice daily to affected* FLUTICASONE 50 MCG/ACTUATION * Use 2 Sprays in each nostril * [id number]* Take 1 tablet by mouth twice * NYSTATIN 100,000 UNIT/GRAM TO* Apply 1 application to affect* LEVOTHYROXINE 25 MCG TABLET Take 1 tablet by mouth once d* MONTELUKAST 10 MG TABLET Take 1 tablet by mouth once d* POTASSIUM CHLORIDE ER 20 MEQ * Take 1 tablet by mouth three * FUROSEMIDE 20 MG TABLET Take 1 tablet by mouth once d* CARVEDILOL 6.25 MG TABLET Take 1 tablet by mouth twice * APIXABAN 5 MG TABLET Take 1 tablet by mouth twice * ALBUTEROL SULFATE HFA 90 MCG/* Inhale 2 Puffs as instructed * BUDESONIDE-FORMOTEROL HFA 160* Inhale 2 Puffs as instructed * LEVALBUTEROL 0.63 MG/3 ML TANNA* Problem List As Of Date 05/17/2018 Noted Resolved Hyperlipidemia [E78.5] INVALID FOR*08/04/2015 More... Impaired fasting glucose [R73.01] INVALID FOR*05/05/2015 Hypertension [I10] INVALID FOR* More... Migraine without aura, not intractable, with st*INVALID FOR* GERD (gastroesophageal reflux disease) [K21.9] INVALID FOR* More... Bronchitis, chronic [J42] INVALID FOR* Cough [R05] INVALID FOR* Rhinitis, chronic [J31.0] INVALID FOR* Prediabetes [R73.03] INVALID FOR* More... Hypogammaglobulinemia (HCC) [D80.1] INVALID FOR* More... Mixed hyperlipidemia [E78.2] INVALID FOR* More... Atherosclerosis of [place] coronary artery of na*INVALID FOR* More... S/P coronary artery bypass graft x 2 [Z95.1] INVALID FOR* More... Paroxysmal atrial fibrillation (HCC) [I48.0] INVALID FOR* More... Ptosis of eyelid, right [H02.401] INVALID FOR*09/09/2017 Other instructions from your clinician: Your cholesterol was elevated and your HDL or good cholesterol was low. Decreasing sugars and greasy foods, Increase exercise to 30-45 minutes a day x 5 days a week, Increase fiber and omega-3 fatty acids (fish oil 2000 mg a day) in your diet GUIDELINES FOR LOW CHOLESTEROL, LOW TRIGLYCERIDE DIETS FOODS TO USE MEATS/FISH - Choose lean meats (chicken, turkey, veal, and non-fatty cuts of beef with excess fat trimmed; one serving = 3 oz. of cooked meat). Also, fresh or frozen fish, canned fish packed in water, and shellfish (lobster, crab, shrimp, oysters). Limit use to no more than one serving of one of these per week. Shellfish are high in cholesterol but low in saturated fat and should be used sparingly. Meats and fish should be broiled (stout or oven) or baked on a rack. EGGS - Egg substitutes and egg whites (use freely). Egg yolks (limit two per week). FRUITS - Eat three servings of fresh fruit per day (1 serving = 1/2 cup). Be sure to have at least one citrus fruit daily. Frozen or canned fruit with no sugar or syrup added may be used. VEGETABLES - Most vegetables are not limited (see Foods to Avoid). One dark green (string beans, escarole) or one deep yellow (squash) vegetable is recommended daily. Cauliflower, broccoli, and celery, as well as potato skins, are recommended for their fiber content (fiber is associated with cholesterol reduction). It is preferable to steam vegetables, but they may be boiled, strained, or braised with polyunsaturated vegetable oil (see below). BEANS - Dried peas or beans (1 serving = 1/2 cup) may be used as a bread substitute. NUTS - Almonds, walnuts, and peanuts may be used sparingly (1 serving = 1 tablespoon). Use pumpkin, sesame, or sunflower seeds. BREADS/GRAINS - One roll or one slice of whole grain or enriched bread may be used, or three soda crackers or four pieces of carlito toast as a substitute. Spaghetti, rice or noodles (1/2 cup) or 1/2 large ear of corn may be used as a bread substitute. In preparing these foods, do not use butter or shortening; use soft margarine. Also use egg and sugar substitutes. Choose high fiber grains, such as oats and whole wheat. CEREALS - Use 1/2 cup of hot cereal or 1/4 cup of cold cereal per day. Add a sugar substitute if desired, with 99% fat-free or skim milk. MILK PRODUCTS - Always use 99% fat-free or skim milk, dairy products such as low-fat cheeses (sesay's, uncreamed diet cottage), low-fat yogurt, and powdered skim milk. FATS/OILS - Use soft (not stick) margarine, vegetable oils that are high in polyunsaturated fats (such as safflower, sunflower, soybean, corn, and cottonseed). Always refrigerate meat drippings to harden the fat and remove it before preparing gravies. DESSERTS/SNACKS - Limit to two servings per day; substitute each serving for a bread/cereal serving; ice milk or water sherbet (1/4 cup); unflavored gelatin or gelatin flavored with sugar substitute (1/2 cup); pudding prepared with skim milk (1/2 cup); egg white souffles; unbuttered popcorn (1 1/2 cups). Substitute carob for chocolate. BEVERAGES - Fresh fruit juices (limit to 4 oz. per day); black coffee; plain or herbal teas; soft drinks with sugar substitutes; club soda, preferably salt-free; cocoa made with skim milk or nonfat dried milk and water (sugar substitute added, if desired); clear broth. Alcohol - limit to two servings per day (see Foods to Avoid). MISCELLANEOUS - You may use the following freely: vinegar; spices; herbs; nonfat bouillon; mustard; Worcestershire sauce; soy sauce; flavoring essence. FOODS TO AVOID MEATS/FISH - Marbled beef, pork, leiva, sausage and other pork products; fatty fowl (duck, goose); skin and fat of turkey and chicken; processed meats; luncheon meats (salami, bologna); frankfurters and fast food hamburgers (they are loaded with fat); organ meats (kidneys, liver); canned fish packed in oil. EGGS - Limit egg yolks to two per week. FRUITS - Coconuts (rich in saturated fat) VEGETABLES - Avoid avocados. Starchy vegetables (potatoes, corn linton beans, dried peas, beans) may be used only if they are substitutes for a serving of bread or cereal. (Baked potato skin, however, is desirable for its fiber content). BEANS - Commercial baked beans with sugar and/or pork added. NUTS - Avoid nuts. Limit peanuts and walnuts to one tablespoonful per day. BREADS/GRAINS - Any baked goods with shortening and/or sugar. Commercial mixes with dried eggs and whole milk. Avoid sweet rolls, doughnuts, breakfast pastries (Pashto), and sweetened packaged cereals (the added sugar converts readily to triglycerides). MILK PRODUCTS - Whole milk and whole-milk packaged goods; cream; ice cream; whole-milk puddings, yogurt, or cheeses; nondairy cream substitutes. FATS/OILS - Butter, lard, animal fats, leiva drippings, gravies, cream sauces, as well as palm and coconut oils. All these are high in saturated fats. Examine labels on cholesterol free products for hydrogenated fats. (These are oils that have been hardened into solids and in the process have become saturated.) DESSERTS/SNACKS - Fried snack foods like potato chips; chocolate; candies in general; jams, jellies, syrups; whole-milk puddings; ice cream and milk sherbets; hydrogenated peanut butter. BEVERAGES - Sugared fruit juices and soft drinks; cocoa made with whole milk and/or sugar. When using alcohol (1 oz. liquor, 5 oz. beer, or 2 1/2 oz. dry table wine per serving), one serving must be substituted for one bread or cereal serving (limit two servings of alcohol per day). SPECIAL NOTES: 1. Remember that even non-limited foods should be used in moderation. 2. While on a cholesterol-lowering diet, be sure to avoid animal fats and marbled meats. 3. While on a triglyceride-lowering diet, be sure to avoid sweets and to control the amount of carbohydrates you eat (starchy foods such as flower, bread, or potatoes). 4. Buy a good low-fat cookbook, such as the one published by the [employer]. 5. Consult your physician if you have any questions. Prescriptions ordered this encounter Disp Refills Start End PANTOPRAZOLE 20 MG TABLET,DELAYED RE* 30 t* 5 05/17/2018 Route: ORAL Sig: Take 1 tablet by mouth once daily. ACCU-CHEK INNA PLUS TEST STRIPS 50 S* 12 05/17/2018 Route: OTHER Si Strip once daily. Dx: Insulin: no Medications Discontinued During This Encounter ACCU-CHEK SOFTCLIX LANCETS lancets 50 E* 12 11/09/2017 05/17/2018 Route: OTHER Si Each once daily. Disc: Reason for discontinue is not on file. acetaminophen (TYLENOL) 325 mg tablet 05/17/2018 Class: Historical Med Si-2 tablets Every 6 hours as needed Oral Disc: Reason for discontinue is not on file. ACCU-CHEK INNA PLUS TEST STRP test * 50 S* 12 11/09/2017 05/17/2018 Route: OTHER Si Strip once daily. Dx: Insulin: no Disc: Reason for discontinue is not on file. amiodarone (PACERONE) 200 mg tablet 0 08/25/2017 05/17/2018 Class: Med Update Route: ORAL Sig: Take 0.5 tablets by mouth twice daily. Disc: Reason for discontinue is not on file. Disposition: Return in about 3 months (around 08/16/2018). Follow-up and Disposition History Recorded Encounter Status:Closed by ANKIT MCGHEE CNP on 05/17/18 MICROALB:CREAT Collected: 05/12/2018 Status: F [facility] REPOSITORY TYPE CODE TESTS RESULT OUT OF RANGE REFERENCE UNITS LAB L501.1200 NO RANGE EST. mg/dL Normal UR CREAT 88.10 LAB L502.0500 NO RANGE EST. mg/L Normal 12.4 MICROALBUMIN ,UR LAB L502.0600 <30 mg/g CRE mg/g CRE Normal 14.1 MALB:CREAT Performed By: #### L502.0250 #### [facility] [address], [place], [address] T3 TOTAL - TRIIODOTHYRONINE Collected: 05/12/2018 Status: F Source: [place] 7:31 AM [facility] REPOSITORY TYPE CODE TESTS RESULT OUT OF RANGE REFERENCE UNITS LAB L501.9186 0.6-1.81 ng/mL Normal T3 Total 0.86 Performed By: #### L501.9186 #### [facility] [address] [place], [address] COMPREHENSIVE METABOLIC Collected: 05/12/2018 Status: F Source: [place] 7:31 AM [facility] REPOSITORY Order Comment: Has Patient had X-rays with Contrast this admission? N Is Patient on Heparin? N TYPE CODE TESTS RESULT OUT OF RANGE REFERENCE UNITS LAB L501.0100 74-106 mg/dL High GLU 117 Result Comment: Fasting Glucose result from 100 to 125 mg/dL suggests IMPAIRED HOMEOSTASIS per A.D.A. criteria. Please note revised GLUCOSE reference range effective 2017. LAB L501.1000 7-18 mg/dL Normal BUN 13 LAB L501.1100 0.55-1.02 mg/dL Normal CREAT,SERUM 0.64 Result Comment: The validity of the calculated GFR AND GFRAA in patients over 70 years has not been determined. Clinical correlation is essential. LAB L501.1110 >60 mL/min Normal EST GFR 97 Result Comment: Non- GFR Calc LAB L501.1115 >60 mL/min Normal EST GFR - AA 117 Result Comment: GFR Calc LAB L501.1300 10-20 RATIO High BUN/CRE 20.4 LAB L501.1500 6.4-8.2 g/dL T Normal PROT 6.9 LAB L501.1800 3.2-5.0 g/dL Normal ALB 3.4 LAB L501.1950 2.2-4.2 g/dL Normal GLOB 3.5 LAB L501.2000 0.9-2.4 RATIO Normal A/G 1.0 LAB L501.2200 8.5-10.1 mg/dL CA Normal 8.6 LAB L501.4100 15-37 U/L Low AST 13 LAB L501.4305 45-117 U/L Normal ALK P 92 LAB L501.4405 13-56 U/L Normal ALT 18 LAB L501.4600 0.20-1.00 mg/dL T Normal BILI 0.50 LAB L501.5300 136-145 mmol/L NA Normal 142 LAB L501.5600 3.5-5.1 mmol/L K Normal 3.9 LAB L501.5900 98-107 mmol/L CL Normal 106 LAB L501.6100 21.0-32.0 mmol/L Normal CO2 24.0 LAB L501.6200 5-15 Normal GAP 12 Performed By: #### L500.4050, L501.9571, L506.0400 #### [facility] [address] [place], [address] THYROID STIM HORMONE Collected: 05/12/2018 Status: F Source: [place] ([facility]) 7:31 AM [facility] REPOSITORY Order Comment: Has Patient had X-rays with Contrast this admission? N Is Patient on Heparin? N TYPE CODE TESTS RESULT OUT OF RANGE REFERENCE UNITS LAB L501.9520 0.358-3.74 uIU/mL High TSH 4.66 Performed By: #### L500.4050, L501.9520, L506.0400 #### [facility] [address] [place], [address] T4 FREE DIRECT Collected: 05/12/2018 Status: F Source: [place] 7:31 AM [facility] REPOSITORY Order Comment: Has Patient had X-rays with Contrast this admission? N Is Patient on Heparin? N TYPE CODE TESTS RESULT OUT OF RANGE REFERENCE UNITS LAB L506.0400 0.76-1.46 ng/dL Normal T4 FREE 1.44 DIRECT Performed By: #### L500.4050, L501.9520, L506.0400 #### [facility] [address] [place], [place], [address] PT D/C SUMMARY (1) Observed: 04/28/2018 Status: F Source: [place] 1:55 PM [facility] REPOSITORY [facility] [address] [place], [place] [address] Fax REHABILITATION SERVICES DISCHARGE SUMMARY MR#: [id number] Acct: [id number] Name: ANTIONETTE WYNNE Rep #: [id number] : 1945 72 From: Audra Segovia MPT Referring Dr.: Haider Jones MD Status: REG RCR Insurance: MEDICARE PART A B [employer] - PT D/C Summary It has been my pleasure to treat ANTIONETTE WYNNE under orders from Haider Jones, for the diagnosis of acute resp failure, weakness, difficulty ambulating for a total of 10 visit(s). Discharge Date: 02/08/18 Please see the following information for a summary of their discharge status. - Subjective Subjective: Pt reports that she has been more SOB the last 2 days but the humidity has been bad. She reports that she is ready to do this on her own and wants to start cardiac rehab again but do it on her own. - Pain Headache Pain Intensity (Out of 10): 0 - Overall Improvement % Improvement: 75 - Objective Objective/Function: LE MMT: Increase LE strength by 1/2 muscle grade to increase overall function (LE MMT at time of eval: LE MMT: B hip flex 4-/5, B hip abd 4/5, B knee flex 4/5, B knee ext 4/5, able to do 3/4 normal ROM bridge). Pt is able to get on and off the mat table easier than new eval date. FGA: 13 - Goals Goal 1:: I HEP Goal Progress: Goal Met Goal 2:: Increase LE strength by 1/2 muscle grade to increase overall function (LE MMT at time of eval: LE MMT: B hip flex 4-/5, B hip abd 4-/5, B knee flex 4-/5, B knee ext 4/5, able to do 1/2 normal ROM bridge) Goal Progress: Goal Met Goal 3:: Improve FGA score by 5 points to decrease fall risk. Increase FGA from 8 to 13) Goal Progress: Goal Met Goal 4:: Be able to walk back to the treatment rooms without SOB. Goal Progress: Goal Met - Plan Plan: [facility] - D/C Information Discharge Comments: [facility] pt [facility] If there are questions or concerns regarding this patient's physical therapy, please feel free to call me at [phone]. Thank you for the referral of this patient. Sincerely, Audra Segovia <Electronically signed by Audra Segovia MPT> 04/28/18 [id number] CC: Mary Chang MD; Haider Jones MD Signed PROGRESS Observed: 04/28/2018 Status: COMPLETED Source: [place] 9:13 AM [facility] REPOSITORY HNO ID: [id number] Author: Davina Freed Cma Service: (none) Author Type: (none) Type: Progress Notes Filed: 04/28/2018 9:13 AM Note Text: Opened in error [id number] Observed: 04/28/2018 Status: COMPLETED Source: [place] 12:00 AM [facility] REPOSITORY Patient Outreach ([facility]) ANTIONETTE WYNNE Mere ([id number]) 1945 F Date Time Provider Department 04/28/18 LOURDES DAVINA ([facility]) [facility] During your visit today, we recorded the following information about you: Davina Freed Ac/Dc Rewinder 04/28/2018 9:13 AM Signed Opened in error Allergies As of Date: 04/28/2018 Noted Allergy Reaction ALBUTEROL 11/27/2015 14 - Other: See Comments Comments: Tachycardia. HEART RACES, SHORTNESS OF BREATH (PT USES XOPENEX INHALER AT HOME) BETA BLOCKERS (BETA-BLOCKERS (BET*11/16/2007 14 - Other: See Comments Comments: Wheezing. Dyspnea CODEINE 11/16/2007 11 - Vomiting 14 - Other: See Comments Comments: Nausea DOXYCYCLINE 11/19/2008 4 - Hives PENICILLINS 11/16/2007 2 - Rash 4 - Hives RED DYE 03/03/2015 5 - Intolerance Comments: headaches SULFA (SULFONAMIDE ANTIBIOTICS) 11/16/2007 2 - Rash 4 - Hives THEOPHYLLINE 11/16/2007 2 - Rash Date Reviewed: 02/14/2018 Reviewed by: Darby Prescott Ma - Fully Assessed Prescriptions as of 04/28/2018 Sig: MUPIROCIN 2 % TOPICAL CREAM Apply 1 application to affect* METRONIDAZOLE 0.75 % TOPICAL * apply twice daily to affected* FLUTICASONE 50 MCG/ACTUATION * Use 2 Sprays in each nostril * AEVRLJUPGG-HOAHEKPPJSYSA-NLFB* Take 1 tablet by mouth twice * EZETIMIBE 10 MG TABLET Take 1 tablet by mouth once d* NYSTATIN 100,000 UNIT/GRAM TO* Apply 1 application to affect* ACCU-CHEK SOFTCLIX LANCETS 1 Each once daily. ACCU-CHEK INNA PLUS TEST STR* 1 Strip once daily. Dx: Insu* AMIODARONE 200 MG TABLET Take 0.5 tablets by mouth twi* LEVOTHYROXINE 25 MCG TABLET Take 1 tablet by mouth once d* MONTELUKAST 10 MG TABLET Take 1 tablet by mouth once d* POTASSIUM CHLORIDE ER 20 MEQ * Take 1 tablet by mouth three * FUROSEMIDE 20 MG TABLET Take 1 tablet by mouth once d* CARVEDILOL 6.25 MG TABLET Take 1 tablet by mouth twice * APIXABAN 5 MG TABLET Take 1 tablet by mouth twice * ALBUTEROL SULFATE HFA 90 MCG/* Inhale 2 Puffs as instructed * BUDESONIDE-FORMOTEROL HFA 160* Inhale 2 Puffs as instructed * LEVALBUTEROL 0.63 MG/3 ML TANNA* ACETAMINOPHEN 325 MG TABLET 1-2 tablets Every 6 hours as * Problem List As Of Date 04/28/2018 Noted Resolved Hyperlipidemia [E78.5] INVALID FOR*08/04/2015 More... Impaired fasting glucose [R73.01] INVALID FOR*05/05/2015 Hypertension [I10] INVALID FOR* More... Migraine without aura, not intractable, with st*INVALID FOR* GERD (gastroesophageal reflux disease) [K21.9] INVALID FOR* More... Bronchitis, chronic [J42] INVALID FOR* Cough [R05] INVALID FOR* Rhinitis, chronic [J31.0] INVALID FOR* Prediabetes [R73.03] INVALID FOR* More... Hypogammaglobulinemia (HCC) [D80.1] INVALID FOR* More... Mixed hyperlipidemia [E78.2] INVALID FOR* More... Atherosclerosis of [place] coronary artery of na*INVALID FOR* More... S/P coronary artery bypass graft x 2 [Z95.1] INVALID FOR* More... Paroxysmal atrial fibrillation (HCC) [I48.0] INVALID FOR* More... Ptosis of eyelid, right [H02.401] INVALID FOR*09/09/2017 Encounter Status:Closed by DAVINA FREED CMA on 04/28/18 LIVER PROFILE Collected: 04/21/2018 Status: F Source: [place] 7:24 AM [facility] REPOSITORY Order Comment: Comments: Do with PCP labs Comments: Do with PCP labs Comments: Do with PCP labs TYPE CODE TESTS RESULT OUT OF RANGE REFERENCE UNITS LAB L501.1500 6.4-8.2 g/dL Normal T PROT 7.2 LAB L501.1800 3.2-5.0 g/dL Normal ALB 3.6 LAB L501.1950 2.2-4.2 g/dL Normal GLOB 3.6 LAB L501.4100 15-37 U/L Normal AST 17 LAB L501.4305 45-117 U/L Normal ALK P 95 LAB L501.4405 13-56 U/L Normal ALT 20 LAB L501.4600 0.20-1.00 mg/dL Normal T BILI 0.50 LAB L501.4700 0.00-0.30 mg/dL Normal D BILI 0.12 Performed By: #### L500.3400, L500.4100, L501.9310, L501.9520, L506.0400 #### [facility] [address] [place], [place], [address] LIPID PROFILE Collected: 04/21/2018 Status: F Source: [place] 7:24 AM [facility] REPOSITORY Order Comment: Comments: Do with PCP labs Comments: Do with PCP labs Comments: Do with PCP labs TYPE CODE TESTS RESULT OUT OF RANGE REFERENCE UNITS LAB L501.4900 200 mg/dL High CHOL 266 Result Comment: <200 mg/dL Desirable 200-240 mg/dL Borderline >240 mg/dL High Risk LAB L501.5000 mg/dL High TRIG 224 Result Comment: The drugs N-Acetylcysteine and Metamizole may falsely depress this assay. Serum Triglycerides Reference Interval Normal <150 mg/dL Borderline high 150 - 199 mg/dL High 200 - 499 mg/dL Very High > or = 500 mg/dL LAB L501.6400 mg/dL Normal HDL 57 Result Comment: The drugs N-Acetylcysteine and Metamizole may falsely depress this assay. Reference Range HDL <40 mg/dL Low HDL Cholesterol HDL >or= 60 mg/dL High HDL Cholesterol LAB L501.6500 0-130 mg/dL High LDL 164 LAB L501.6600 5-40 mg/dL High VLDL 45 Performed By: #### L500.3400, L500.4100, L501.9310, L501.9520, L506.0400 #### [facility] [address] [place], [place], [address] T4 TOTAL, THYROXIN Collected: 04/21/2018 Status: F Source: [place] 7:24 AM [facility] REPOSITORY Order Comment: Comments: Do with PCP labs Comments: Do with PCP labs Comments: Do with PCP labs TYPE CODE TESTS RESULT OUT OF RANGE REFERENCE UNITS LAB L501.9310 4.8-13.9 ug/dL T4 Normal THYROXIN 13.1 Performed By: #### L500.3400, L500.4100, L501.9310, L501.9520, L506.0400 #### [facility] [address] [place], [address] THYROID STIM HORMONE Collected: 04/21/2018 Status: F Source: [place] ([facility]) 7:24 AM [facility] REPOSITORY Order Comment: Comments: Do with PCP labs Comments: Do with PCP labs Comments: Do with PCP labs TYPE CODE TESTS RESULT OUT OF RANGE REFERENCE UNITS LAB L501.9520 0.358-3.74 uIU/mL High TSH 5.61 Performed By: #### L500.3400, L500.4100, L501.9310, L501.9520, L506.0400 #### [facility] [address] [place], [address] T4 FREE DIRECT Collected: 04/21/2018 Status: F Source: [place] 7:24 AM [facility] REPOSITORY Order Comment: Comments: Do with PCP labs Comments: Do with PCP labs Comments: Do with PCP labs TYPE CODE TESTS RESULT OUT OF RANGE REFERENCE UNITS LAB L506.0400 0.76-1.46 ng/dL Normal T4 FREE 1.43 DIRECT Performed By: #### L500.3400, L500.4100, L501.9310, L501.9520, L506.0400 #### [facility] [address] [place], [address] CARDIOLOGY VISIT Observed: 04/10/2018 Status: F Source: [place] REPORT 12:31 PM [facility] REPOSITORY [facility] [address] [place] [address] OFFICE VISIT Date of Service: 04/10/18 MR#: [id number] Acct: [id number] Name: ANTIONETTE WYNNE Rep #: [id number] : 1945 Provider: Abraham Aburto MD Age/Sex: 72/F Location: [facility] Status: Signed HPI HPI Details: ANTIONETTE WYNNE, is a 72 F who presents to the office today for for outpatient cardiovascular follow-up of her history of underlying CAD, CABG, ischemic mediated cardiomyopathy, paroxysmal atrial fibrillation, hyperlipidemia, and hypertension. Overall, from a cardiac standpoint, she believes she is doing reasonably well at this time. She has not had any obvious ongoing issues with classic angina pectoris nor has she had any overt issues with classic CHF or pulmonary edema. There has been no near syncope or syncope. She states she is concerned about her underlying pulmonary status and thyroid status. She is concerned about involvement in her medications with respect to her antiarrhythmic therapy with amiodarone despite its low dose. Intake Vital Signs04/10/18 Height 5 ft 1 in 04/10/18 Weight: 214 lb 04/10/18 Body Mass Index (BMI) 40.4 04/10/18 Blood Pressure 142/72 Intake Visit Reasons: 6 M FU Allergies Beta-Blockers (Beta-Adrenergic Bloc Allergy (Verified 04/10/18 11:29) Shortness of breath doxycycline Allergy (Verified 04/10/18 11:29) Hives Penicillins Allergy (Verified 04/10/18 11:29) Rash red dye Allergy (Verified 04/10/18 11:29) Unknown Sulfa (Sulfonamide Antibiotics) Allergy (Verified 04/10/18 11:29) Rash theophylline Allergy (Verified 04/10/18 11:29) Rash codeine Adverse Reaction (Verified 04/10/18 11:29) Nausea Medications Budesonide/Formoterol 160/4.5 [Symbicort 160/4.5 Mcg Inhaler (SP)] 2 puff INHALATION BID PRN 11/09/15 [History Confirmed 04/10/18] Montelukast [Singulair] 10 mg PO DAILY 11/09/15 [History Confirmed 04/10/18] Ezetimibe [Zetia] 10 mg PO DAILY 03/26/17 [History Confirmed 04/10/18] benzonatate 100 mg capsule 100 mg PO Q6H 10/19/17 [History Confirmed 04/10/18] levalbuterol 0.63 mg/3 mL solution for nebulization 0.63 mg INHALATION Q4H PRN #120 vial 10/28/17 [Rx Confirmed 04/10/18] Acetaminophen [Tylenol] 1,000 mg PO Q8H PRN PRN tab 12/28/17 [Rx Confirmed 04/10/18] carvedilol 6.25 mg tablet 6.25 mg PO BID #180 tab 01/03/18 [Rx Confirmed 04/10/18] apixaban 5 mg tablet 5 mg PO BID #60 tab 01/30/18 [Rx Confirmed 04/10/18] furosemide 40 mg tablet 40 mg PO QDAY #90 tab 03/07/18 [Rx Confirmed 04/10/18] potassium chloride ER 20 mEq tablet,extended release(part/cryst) 20 meq PO TID #270 tab 03/07/18 [Rx Confirmed 04/10/18] albuterol sulfate HFA 90 mcg/actuation aerosol inhaler 2 puff INHALATION Q4H PRN PRN #18 g 03/27/18 [Rx Confirmed 04/10/18] fluticasone 50 mcg/actuation nasal spray,suspension 2 spray INTRANASAL QDAY 04/10/18 [History Confirmed 04/10/18] levothyroxine 25 mcg tablet 50 mcg PO DAILY tab 04/10/18 [History] [facility] Medical History Arteriosclerotic heart disease (ASHD) (Chronic) Asthma (Chronic) Restrictive lung disease (Chronic) Paroxysmal atrial fibrillation (Chronic) Nonrheumatic tricuspid valve regurgitation (Chronic) Dilated cardiomyopathy (Chronic) 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) HTN (hypertension) (Chronic) Diabetes mellitus (Chronic) HLD (hyperlipidemia) (Chronic) DM type 2 (diabetes mellitus, type 2) (Chronic) Hypogammaglobulinemia (Chronic) Morbid obesity (Chronic) Migraines (Chronic) BARTOLO (obstructive sleep apnea) (Chronic) CAD (coronary artery disease) (Chronic) Surgical History 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) History of eye surgery (Chronic) Family History Father CAD (coronary artery disease) Social History Smoking Status: Never smoker second hand exposure: No alcohol intake: never substance use type: does not use caffeine: Yes Type: coffee what type of physical activity do you participate in: running, walking frequency: 3-4 times per week ROS Const Const: Negative for fatigue, weakness, weight gain, weight loss, frequent falls or excessive sweating Eyes Eyes: Negative for change in vision, blurry vision or transient loss of vision ENT ENT: Positive for dizziness (when laying down); negative for balance problems Cardio Chest Pain: No Palpitations: No Edema: Bilateral (occasional) Muscle aches with walking: None Additional Details: Patient reports that she notes a twinge to left side of chest when laying on left side Resp Respiratory: Positive for SOB with activity (occasional going uphill, breathing at baseline); negative for SOB at rest GI GI: Negative vomiting or vomiting blood/hematemesis : Negative for hematuria Musc Musc: Positive for joint pain (HX arthritis); negative for balance problems, muscle aches/ myalgia or muscle weakness Skin Skin: Negative non-healing lesions or rash Neuro Neuro: Positive for dizziness (when laying down); negative for weakness, blurry vision, lightheadedness, frequent falls or orthostatic symptoms Johnathon Hematologic/Lymphatic: Negative for easy bleeding Endo Endo: Negative for fatigue or excessive sweating Psych Psych: Negative for anxiety or depression Allergy Allergy/Immunology: Negative for hives, Negative for rash Cardiology Exam Const Appearance: cooperative, healthy appearing, comfortable, no acute distress, well developed and well groomed Nutritional Appearance: overweight Orientation: alert, awake and oriented x3 Head Head: normal to inspection, normocephalic and atraumatic Ears: hearing grossly normal bilaterally Nose: external nose normal Face and Sinus: face symmetric Mouth: oral mucosae normal Eyes Eyelids: eyelids normal Conjunctivae: conjunctivae normal Pupils: PERRL EOM: EOM intact bilaterally Neck Neck: normal visual inspection Carotids: normal carotid upstroke Chest Chest inspection: normal inspection of the chest, symmetric chest movement and midline sternotomy incision Auscultation: Bilateral: Clear to Auscultation Cardio Palpation: normal PMI Rate: regular rate Rhythm: regular rhythm Heart sounds: S1 normal and S2 normal GI GI: normal to inspection, bowel sounds present and soft Neuro General: alert, awake, oriented x3 and moves all extremities Extremities Pulses: Normal: Right Radial Pulse, Left Radial Pulse Lower Extremity Edema: None: Bilateral Psych Psychological: normal affect Supplemental Info The patient had a transthoracic echocardiogram performed on 03/28/2017. The results are as noted below. Interpretation Summary The study was technically difficult. Mild segmental systolic dysfunction (see wall motion). The estimated ejection fraction is 45 %. The left atrium is mildly enlarged. Mild diffuse mitral valve thickening. Mild-Moderate (1-2+) mitral valve insufficiency. Mild to moderate (1-2+) tricuspid valve insufficiency. Mild (1+) pulmonic valve insufficiency. Right ventricular systolic pressure estimated to be 35 mmHg. She had an exercise tolerance test/imaging study performed on 03/28/2017. The nuclear imaging portion is as noted below. Impression: 1. Rest and stress SPECT Cardiolite nuclear imaging demonstrating myocardial perfusion changes appearing compatible with an area of previous myocardial injury/infarction involving portions of the mid to distal anterior, anterolateral, anteroseptal, and apical segments. 2 There are no myocardial perfusion changes consider diagnostic for associated stress-induced myocardial ischemia, 3, The gated Cardiolite study reports an LVEF of 44% She had a diagnostic cardiac catheterization performed at [facility] on 11/10/2015. The results are as noted below. Final impression: 1. Elevated left ventricular end diastolic pressure compatible decreased LV systolic function 2. Left ventricle: A, Severe hypokinesis to akinesis of the anterior, anteroapical and inferoapical segments B. Estimated LVEF of 40% 3. Left main coronary artery: A. Angiographically normal 4. Left anterior descending coronary artery: A. Proximal mild calcification B. Proximal discrete subtotal occlusion C. Mid to distal: Minimal luminal irregularities 5. Left circumflex coronary artery: A. Mid 85% discrete slightly hazy appearing stenosis 6. Right coronary artery: A. Large dominant vessel B. Proximal discrete subtotal occlusion C. Mid to distal: 10-25% diffuse appearing stenosis 7. Mitral valve: A. Mild mitral valve regurgitation Her CABG was performed on 11/12/2015 at [facility]. At that time she received a LINTON to the LAD, and SVG to the second OM and to the PDA Assessment AND Plan 1. CAD (coronary artery disease) I25.10 Plan At the present time she appears to be without any acute symptoms. She will continue risk factor modification and medical management. 2. History of coronary artery bypass graft x 3 Z95.1 Plan She has undergone CABG. The results are as noted above. She will continue medical therapy and follow-up. 3. Paroxysmal atrial fibrillation I48.0 Plan She does have a history of paroxysmal atrial fibrillation. She has been remaining in sinus rhythm. She has remained on medical therapy including antiplatelet therapy, anticoagulant therapy, rate control therapy, and antiarrhythmic therapy. She would like to stop her antiarrhythmic therapy based upon her concerns with her interaction of her pulmonary disease process and her thyroid process. Her case was reviewed. At the present time she will be allowed to stop her low-dose amiodarone therapy. She will need follow-up of her thyroid studies over time to evaluate whether or not she needs additional adjustment in her thyroid supplements, etc. She was told that if she returns to atrial fibrillation consideration would be given to going back on this medication versus an alternative agent which depending upon her clinical course could consider agent such as dofetilide as she is not an ideal candidate for agents such as I C antiarrhythmics and potentially not an ideal candidate for agent such as type III's with respect to sotalol/Betapace Orders Orders: 4. Ischemic cardiomyopathy I25.5 Plan At the moment she appears to be without any obvious evidence of acute on chronic cystoscopy CHF. She will continue medical management and follow-up as deemed appropriate. 5. Hyperlipidemia, unspecified hyperlipidemia type E78.5 Plan She will continue medical management. She states she will be having her lipid labs checked in the near future. A copy would be appreciated for continuity of care appear Orders Orders: 6. Essential hypertension I10 Plan Her blood pressure appears to be recently well controlled. She will continue medical therapy and follow-up peer Plan Detail Other Medications Discontinued: insulin aspart U- Discontinued Rea7 multiple units (0.07 mL) Sub-Q TIDA Paty Chaudhary son: Pt no longer taking C Additional Comments At the present time she appears to be doing well. She will continue medical management as noted above. She will be scheduled for future laboratory studies which can be done with her PCP labs. She will be scheduled for future outpatient cardiovascular visit. Thank you for allowing me to participate in the care of your patient. Please don't hesitate to call if any issues arise. This note was generated using a voice recognition system and there may be incorrect words, spelling or punctuation that were not noted when reviewing the office note prior to saving. Follow Up 6 Months (PFM) Coding Level of Care Code Off vis,est,level 3 Diagnoses CAD (coronary artery disease) I25.10 Coronary Disease-Associated Artery/Lesion type: squaxin artery [place] vs. transplanted heart: squaxin heart History of coronary artery bypass graft x 3 Z95.1 Paroxysmal atrial fibrillation I48.0 Ischemic cardiomyopathy I25.5 Hyperlipidemia, unspecified hyperlipidemia type E78.5 Hyperlipidemia type: unspecified Essential hypertension I10 Hypertension type: essential hypertension Coding Level of Care Code Off vis,est,level 3 Diagnoses CAD (coronary artery disease) I25.10 Coronary Disease-Associated Artery/Lesion type: squaxin artery [place] vs. transplanted heart: squaxin heart History of coronary artery bypass graft x 3 Z95.1 Paroxysmal atrial fibrillation I48.0 Ischemic cardiomyopathy I25.5 Hyperlipidemia, unspecified hyperlipidemia type E78.5 Hyperlipidemia type: unspecified Essential hypertension I10 Hypertension type: essential hypertension 04/10/18 1231 <Electronically signed by Abraham Aburto MD> Date Abraham Aburto MD Cosigner Signature: Date (if applicable) CC: Mary Chang MD PULMONARY VISIT REPORT Observed: 03/27/2018 Status: F Source: TRIMBLE 2:26 PM [facility] REPOSITORY Pulmonary Medicine [address] [place] [address] OFFICE VISIT Date of Service: 03/27/18 MR#: [id number] Acct: [id number] Name: ANTIONETTE WYNNE Rep #: [id number] : 1945 Provider: Rosaline Sheikh Age/Sex: 72/F Location: [facility] [place].PMW Status: Signed Assessment AND Plan 1. Moderate persistent asthma without complication J45.40 Plan Stable. No indication to step up therapy. Continue Symbicort. No additional testing at this time. Follow up with [facility] in 6 mos. Call the office if any new or worsening symptoms in the mean time. 2. Acute recurrent maxillary sinusitis J01.01 Plan Improved. Continue therapy as indicated by ENT. Appreciate input. 3. BARTOLO (obstructive sleep apnea) G47.33 Plan Using an benefitting from PAP therapy. No indication for titration study at this time. Follow up [facility] in 6 mos. 4. Labyrinthitis of left ear H83.02 Plan New. Possibly allergic/viral in nature. No antibiotics at this time. She will call the office if symptoms persist, at which time she may require an antibiotic. Plan Detail Other Orders Orders: Other Medications New: Follow Up 6 Months (DMB) HPI 1 M FU: Chief Complaint: Left ear pain HPI Comments Details: This patient presents to the office today to follow- up on her asthma. She is ambulatory and currently on room air. She has not been seen in the ED/urgent care since her last office visit for any breathing problems. She has not required any antibiotics or redness him for any respiratory problems. She has been doing quite well but recently began to have pain in the left ear, she is wondering if she has fluid on the ear. She has reported that since the use of the Flonase her cough is completely resolved. She denies any wheezing or chest tightness. She does occasionally have some dyspnea on exertion. She denies any shortness of breath at rest or during conversation. She denies any palpitations or chest pain. She has not experienced any fever, chills or body aches. She denies any headaches or sinus pressure. She is compliant with Symbicort 2 puffs twice daily. She does rinse her mouth out after each use. She denies any medication side effects such as sore throat or thrush. She is using DuoNeb by nebulizer twice daily if it is hot and humid only. It does relieve her shortness of breath that is associated with being exposed to warm humid air. She is using her BiPAP nightly, denies any difficulties with air leaks. She does report that she believes that her headgear is slightly uncomfortable and would like to speak with her [employer] company regarding replacing the headgear. She does feel rested upon arising in the morning. She does not require naps often, occasionally if she does take a nap she does wear her BiPAP. She denies any dry mouth, nocturia or frequent headaches. Pulmonary function test completed on March 13, 2018 was interpreted as showing a moderate reduction in diffusing capacity. FVC 60% of predicted, FEV1 61% of predicted, FEV1/FVC 76% of predicted, TLC 94% predicted, RV 102% predicted and DLCO 47%. Pulmonary stress test completed on March 07, 2017 shows that the patient was able to ambulate 664 feet over the course of 6 minutes, she did not require supplemental oxygen as she did desaturate to 90% which would indicate close following. Compliance report for the past 30 days was reviewed and shows 80% compliance, current settings are 15/9 cm of water. Average use is 6 hours and 49 minutes. AHI is controlled at an average of 2 events per hour. Leaks appear to be a fairly common problem. The patient was referred to ENT and the consultation note was reviewed: Acute sinusitis resolving, oropharyngeal dysphagia, salivary pooling which may contribute to pulmonary health if aspiration is present. Migraine, daily recurring headache and the patient is to be returned to the office in 6 months. 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 Required: No Accompanied by: Self Is patient in pain?: No Allergies Beta-Blockers (Beta-Adrenergic Bloc Allergy (Verified 01/13/18 10:29) Shortness of breath doxycycline Allergy (Verified 01/13/18 10:29) Hives Penicillins Allergy (Verified 01/13/18 10:29) Rash red dye Allergy (Verified 01/13/18 10:29) Unknown Sulfa (Sulfonamide Antibiotics) Allergy (Verified 01/13/18 10:29) Rash theophylline Allergy (Verified 01/13/18 10:29) Rash codeine Adverse Reaction (Verified 01/13/18 10:29) Nausea Medications Budesonide/Formoterol 160/4.5 [Symbicort 160/4.5 Mcg Inhaler (SP)] 2 puff INHALATION BID PRN 11/09/15 [History Confirmed 01/13/18] Montelukast [Singulair] 10 mg PO DAILY 11/09/15 [History Confirmed 01/13/18] Acetaminophen/Butalbital/Caffe [Fioricet] 1 tab PO BID PRN PRN 03/26/17 [History Confirmed 01/13/18] Ezetimibe [Zetia] 10 mg PO DAILY 03/26/17 [History Confirmed 01/13/18] amiodarone 200 mg tablet 100 mg PO DAILY tab 08/22/17 [History Confirmed 01/13/18] benzonatate 100 mg capsule 100 mg PO Q6H 10/19/17 [History Confirmed 01/13/18] levalbuterol 0.63 mg/3 mL solution for nebulization 0.63 mg INHALATION Q4H PRN #120 vial 10/28/17 [Rx Confirmed 01/13/18] Ipratropium/Albuterol Sulfate [Duoneb] 3 ml INHALATION Q4HWA.RT 12/22/17 [History Confirmed 01/13/18] Acetaminophen [Tylenol] 1,000 mg PO Q8H PRN PRN tab 12/28/17 [Rx Confirmed 01/13/18] Famotidine [Pepcid] 20 mg PO BID #60 tab 12/28/17 [Rx Confirmed 01/13/18] Insulin Aspart [Novolog Flexpen] 7 units SC TIDAC #1 flexpen 12/28/17 [Rx Confirmed 01/13/18] Insulin Detemir [Levemir FlexPen] 10 units SC 1100,2200 #1 insuln.pen 12/28/17 [Rx Confirmed 01/13/18] Levothyroxine [Synthroid] 25 mcg PO DAILY #30 tab 12/28/17 [Rx Confirmed 01/13/18] Nystatin 500,000 unit PO 4X/DAY #100 ml 12/28/17 [Rx Confirmed 01/13/18] carvedilol 6.25 mg tablet 6.25 mg PO BID #180 tab 01/03/18 [Rx Confirmed 01/13/18] levofloxacin 500 mg tablet 500 mg PO Q24H 01/13/18 [History Confirmed 01/13/18] apixaban 5 mg tablet 5 mg PO BID #60 tab 01/30/18 [Rx] furosemide 40 mg tablet 40 mg PO QDAY #90 tab 03/07/18 [Rx] potassium chloride ER 20 mEq tablet,extended release(part/cryst) 20 meq PO TID #270 tab 03/07/18 [Rx] albuterol sulfate HFA 90 mcg/actuation aerosol inhaler 2 puff INHALATION Q4H PRN PRN #18 g 03/27/18 [Rx Confirmed 03/27/18] PFSH Medical History Arteriosclerotic heart disease (ASHD) (Chronic) Asthma (Chronic) Restrictive lung disease (Chronic) Paroxysmal atrial fibrillation (Chronic) Nonrheumatic tricuspid valve regurgitation (Chronic) Dilated cardiomyopathy (Chronic) 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) HTN (hypertension) (Chronic) Diabetes mellitus (Chronic) HLD (hyperlipidemia) (Chronic) DM type 2 (diabetes mellitus, type 2) (Chronic) Hypogammaglobulinemia (Chronic) Morbid obesity (Chronic) Migraines (Chronic) BARTOLO (obstructive sleep apnea) (Chronic) CAD (coronary artery disease) (Chronic) Surgical History 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) Family History Father CAD (coronary artery disease) Social History Smoking Status: Never smoker second hand exposure: No alcohol intake: never substance use type: does not use caffeine: Yes Type: coffee what type of physical activity do you participate in: running, walking frequency: 3-4 times per week Review of Systems Const CONSTITUTIONAL: Positive fatigue; negative anorexia, body ache, chills, daytime sleepiness, fever(s), night sweats, oral thrush, stops breathing during sleep, weight loss, sleeping in chair, weight loss, weight gain, frequent colds, seasonal allergies, other, headache(s) or orthopnea EETM Ear Nose Throat Mouth: Positive hearing normal and ear pain; negative hard of hearing, hoarseness, dry mouth in morning, change in vision, itchy eyes, eye pain, swallowing Difficulty, nose bleed, headache(s), mouth pain, nasal congestion, nasal discharge, post nasal drip, sinus pain, sinus pressure, sore throat or other Cardio Cardiovascular: Negative chest pain, chest pain at rest, chest pain with activity, irregular heart rhythm, edema, shortness of breath when lying down, palpitations, murmur or other Resp Respiratory: Positive as per HPI, shortness of breath shortness of breath: Positive with activity and inhalers; negative pain with cough, wheezing, chest congestion, cough, chest tightness, pain on inspiration, increase use of rescue inhalers, snoring, apnea or other Gastro Gastrointestional: Negative bloody stools, change in appetite, difficulty swallowing, reflux, hematemesis, melena stool, loose stool, constipation or other Genitourinary: Negative blood in urine, nocturia, pain with urination or other Musc Musculoskeletal: Negative body pain, back pain, neck pain or other Skin/Breast Skin/Breast: Negative dry skin, itching, rash, unusual bruising, breast lump or other Neuro Neurological: Negative restless legs, confusion, weakness or other Psych Psychocological: Negative abnormal sleep pattern, anxiety, thoughts of hurting self/others, hopelessness or other Lymph Lymphatic: Negative easy bleeding, easy bruising, swollen lymph nodes or other Exam Const Constitutional: Positive conversant, cooperative, in no acute respiratory distress, healthy appearing, well developed, well nourished and good hygiene Head Head: Positive normocephalic and atraumatic; negative cyanosis of lips/distal nose Eyes Eye: Positive clear conjunctiva and nystagmus; negative scleral abnormality Ears Ear: Positive hearing normal, TM normal on the right and TM bulging; negative hard of hearing Nose Nose: Negative epistaxis Mouth Mouth: Negative post nasal drip or oral thrush present Mallampati Score: I: Mallampati Score Neck Neck: Positive normal visual inspection, full ROM and trachea midline; negative lymphadenopathy, JVD or tender Chest Wall Chest: Positive normal inspection of the chest and symmetric chest movement; negative increased A/P diameter Resp lung sounds: Positive clear to auscultation, good air exchange, normal expiratory time and normal respiratory effort; negative diminished, wheezes, rhonchi, rales, dullness to percussion or wheeze present on forced exhalation Cardio Cardiac: Negative murmur GI GI: Positive normal to inspection and normal bowel sounds; negative distended Genitourinary: Positive deferred Musc Musculoskeletal: Positive steady gait, ROM normal and kyphosis; negative scoliosis Skin Pulmonary Skin Exam: Negative rash Extremities Extremities: Yes edema Location: lower extremity location: Bilateral pitting trace Neuro Neurologic: Yes conversant Lymph Lymphatic: No lymphadenopathy Psych Appearance: Positive grossly normal, eye contact and well kempt Mental Status: Positive mental status grossly normal Affect: Positive normal affect Coding Level of Care Code Off vis,est,level 3 Diagnoses Moderate persistent asthma without complication J45.40 Asthma severity: moderate Asthma persistence: persistent Asthma complication type: uncomplicated Acute recurrent maxillary sinusitis J01.01 Sinusitis location: maxillary Chronicity: acute Recurrence: recurrent BARTOLO (obstructive sleep apnea) G47.33 Labyrinthitis of left ear H83.02 Laterality: left 03/27/18 1426 <Electronically signed by Rosaline Sheikh NP-C> Date Rosaline Sheikh NP-C Cosigner Signature: Date (if applicable) CC: Mary Chang MD PULMONARY FUNCTION Observed: 03/13/2018 Status: F Source: TRIMBLE TEST 12:34 PM [facility] REPOSITORY [facility] Pulmonary Services/Neurology [address] [place] [address] MR#: [id number] Acct: [id number] Name: ANTIONETTE WYNNE Rep #: [id number] : 1945 72 From: Julio Sevilla DO Referring Dr: Rosaline Sheikh NP Status: REG CLI Ordering Dr: Date: Location: [facility] Sex: F C INTRODUCTION: The patient is a 72-year-old female currently under the care of Rosaline Sheikh NP that presents for pulmonary function testing secondary to a diagnosis of shortness of breath. Respiratory therapy reports good patient effort. Bronchodilators were used during testing. INTERPRETATION: Forced expiration spirometry demonstrates no evidence of a large airways obstructive ventilatory impairment. There was no significant response to aerosolized bronchodilators. Spirograms are of good quality and plateau normally. Body plethysmography was performed and reveals a normal TLC and RV. Diffusing capacity by single breath CO is significantly reduced at 47% of predicted. There has been significant improvement in the patient's TLC since PFTs were last completed in July 2017. Diffusing capacity has remained stable. IMPRESSION: These pulmonary function studies demonstrate the presence of an isolated moderate reduction in diffusing capacity. 03/13/18 1234 <Electronically signed by Julio Sevilla DO> Date Julio Sevilla DO CC: Mary Chang MD; Rosaline Sheikh Date Dictated: 03/13/18 1230 Date Transcribed: 03/13/18 1230 Green Building Architect: ESTELA Signed 6 MINUTE WALK TEST Observed: 03/07/2018 Status: F Source: YEHUDA 5:27 PM [facility] REPOSITORY [facility] Pulmonary Services/Neurology [address] [place] [address] MR#: [id number] Acct: [id number] Name: ANTIONETTE WYNNE Rep #: [id number] : 1945 72 From: Michael Schmitt MD Referring Dr: Rosaline Sheikh NP Date: Ordering Dr: Sex: F C Location: PSN PSN 6 Minute Walk Test - 6 Minute Walk Test 6 Minute Walk Test: 6 Minute Walk Test PSN:6-Minute Walk Test Start: 03/07/18 11:16 Freq: Status: Active Protocol: [id number].6MINW Document 03/07/18 11:16 SMB (Rec: 03/07/18 11:19 SMB [id number]) 6 Minute Walk Test Date Performed 03/07/18 Time Performed 11:01 Height 5 ft 1 in Weight: 95.254 kg Weight in Pounds 210.[address]: Rosaline Sheikh Assistive device used: None Pre-test Oxygen Delivery Method Room Air Pulse Ox (%) 96 Pulse Rate (60-100 beats/min) 71 Dyspnea Austyn Scale (0-10) 0.5 Exertion Austyn Scale (6-20) 12 1st minute Oxygen Delivery Method Room Air Pulse Ox (%) 95 Pulse Rate (60-100 beats/min) 80 2nd minute Oxygen Delivery Method Room Air Pulse Ox (%) 93 Pulse Rate (60-100 beats/min) 91 3rd minute Oxygen Delivery Method Room Air Pulse Ox (%) 93 Pulse Rate (60-100 beats/min) 91 4th minute Oxygen Delivery Method Room Air Pulse Ox (%) 93 Pulse Rate (60-100 beats/min) 94 5th minute Oxygen Delivery Method Room Air Pulse Ox (%) 90 Pulse Rate (60-100 beats/min) 93 6th minute Oxygen Delivery Method Room Air Pulse Ox (%) 90 Pulse Rate (60-100 beats/min) 91 Post-test Oxygen Delivery Method Room Air Pulse Ox (%) 96 Pulse Rate (60-100 beats/min) 79 Dyspnea Austyn Scale (0-10) 3 Exertion Austyn Scale (6-20) 14 Full Laps Walked 11 Partial Lap, Number of Tiles Walked 15 Total Distance Walked (ft) 664 - Interpretation Interpretation: The patient ambulated only 664 feet over the course of 6 minutes on room air with no assistive devices or breaks. The patient did experience significant desaturation with an oxygen nathan of 90%. No significant tachycardia was noted. These findings are consistent with a respiratory limitation exercise tolerance. - Recommendations Recommendations: No supplemental oxygen is indicated at this time. However, patient will need to be followed closely given level of desaturation. 03/07/181726 <Electronically signed by Michael Schmitt MD> Date Michael Schmitt MD CC: Date Dictated: 03/07/181725 Date Transcribed: 03/07/181725 Green Building Architect: Michael Schmitt Signed MISCELLANEOUS LAB Collected: 02/27/2018 Status: F Source: YEHUDA PROCEDURE 3:19 PM [facility] REPOSITORY Order Comment: Comments: [id number] PNEUMOCOCCUS SEROTYPES Test(s) Ordered: [id number] PNEUMOCOCCUS SEROTYPES TYPE CODE TESTS RESULT OUT OF RANGE REFERENCE UNITS LAB L801.1541 Normal [facility] [place] LAB TEST Result Comment: TEST RESULT LIMITS Pneumococcal Ab (23 Serotype) Pneumo Ab Type 1* 2.5 ug/mL >1.3 Pneumo Ab Type 3* 1.0 Low ug/mL >1.3 Pneumo Ab Type 4* 6.7 ug/mL >1.3 Pneumo Ab Type 8* 2.1 ug/mL >1.3 Pneumo Ab Type 9 (9N)* 5.3 ug/mL >1.3 Pneumo Ab Type 12 (12F)* 0.8 Low ug/mL >1.3 Pneumo Ab Type 14* 4.3 ug/mL >1.3 Pneumo Ab Type 17 (17F)* 27.8 ug/mL >1.3 Pneumo Ab Type 19 (19F)* 3.5 ug/mL >1.3 Pneumo Ab Type 2* 8.0 ug/mL >1.3 Pneumo Ab Type 20* 6.7 ug/mL >1.3 Pneumo Ab Type 22 (22F)* 1.5 ug/mL >1.3 Pneumo Ab Type 23 (23F)* 9.8 ug/mL >1.3 Pneumo Ab Type 26 (6B)* 2.2 ug/mL >1.3 Pneumo Ab Type 34 (10A)* 2.5 ug/mL >1.3 Pneumo Ab Type 43 (11A)* 9.2 ug/mL >1.3 Pneumo Ab Type 5* 14.2 ug/mL >1.3 Pneumo Ab Type 51 (7F)* 1.5 ug/mL >1.3 Pneumo Ab Type 54 (15B)* >48.1 ug/mL >1.3 Pneumo Ab Type 56 (18C)* >25.7 ug/mL >1.3 Pneumo Ab Type 57 (19A)* 13.4 ug/mL >1.3 Pneumo Ab Type 68 (9V)* >31.8 ug/mL >1.3 Pneumo Ab Type 70 (33F)* 0.8 Low ug/mL >1.3 *This test was developed and its performance characteristics determined by [facility]. It has not been cleared or approved by the U.S. Food and Drug Administration. TESTING PERFORMED AT [facility]. ORIGINAL REPORT ON FILE IN LAB CONTAINS ADDITIONAL TEST SITE INFORMATION. Performed By: #### L801.1541 #### [facility] [address] [place], [address] PROGRESS Observed: 02/14/2018 Status: COMPLETED Source: AR[place]TA 2:16 PM [facility] REPOSITORY HNO ID: [id number] Author: Ankit Mcghee Service: (none) Author Type: Nurse Practitioner Type: Progress Notes Filed: 02/14/2018 3:24 PM Note Text: CC: Patient presents with: Recheck: 3 month follow up HPI Antionette Wynne is a 72 year old female who presents today for 3 month follow up. HTN: Ms. Wynne indicates that she is feeling well and denies any symptoms referable to elevated blood pressure. Specifically denies headache, chest pain, palpitations and peripheral edema. Patient denies any side effects of her medication(s) and is compliant with their regimen. She does not check BP's generally. 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 She watches her diet for sodium, low fat and low cholesterol most of the time. Last 3 Encounter BP Readings: Date: BP: 02/14/2018 130/80 01/09/2018 138/78 11/09/2017 146/78 GERD. Since our last visit 3 months ago she has been doing fair. Current symptoms include heartburn, cough and frequent throat clearing. several times a week on therapy of famotidine (Pepcid) QD. Symptoms are precipitated with laying flat. BARTOLO: Wears cpap regularly. Followed by sleep medicine. Antionette Wynne 72 year old female presents today in follow up of moderate persistent asthma. Her current symptoms include daily (continually) shortness of breath and cough. Frequency of albuterol use is BID. Environmental factors include: no air conditioning No recent exacerbations. No recent ED visits or hospitalizations in the past year. REVIEW OF SYSTEMS General: no fevers, no chills, no night sweats, no recurrent infections, no change in appetite, no change in energy and no significant changes in weight HEENT: no frequent or significant headaches, no changes in hearing, no nose bleeds, no sinus or nasal problems Respiratory: no hemoptysis, See HPI Cardiovascular: no chest pain, no chest pressure and Positive for: intermittent bilateral lower extremity edema and palpitations GI: No nausea, vomiting, or diarrhea Endocrine: no fatigue, no weight gain, no weight loss, no hair loss, no dry skin, no cold intolerance, no heat intolerance, no neck pain/pressure, no polyuria, no polyphagia and no polydipsia Neurologic: No headache, numbness, tingling, neck stiffness, tremor, vertigo, dizziness, memory loss, syncope. PAST MEDICAL HISTORY Diagnosis Date - Acute non-ST segment elevation myocardial infarction (HCC) - Bronchitis, chronic (HCC) 07/13/2012 - Coronary arteriosclerosis - Cough 07/13/2012 - Esophageal reflux - Essential hypertension, benign - Generalized osteoarthrosis, unspecified site - Hypogammaglobulinemia (HCC) - Immunodeficiency disorder (HCC) - Impaired fasting glucose - Known medical problems History of coronary artery bypass grafting three vessel bypass - Left ventricular systolic dysfunction mild - Obesity - Obstructive sleep apnea syndrome - Other and unspecified hyperlipidemia - Rhinitis, chronic 07/13/2012 - Type 2 diabetes mellitus (HCC) - Unspecified asthma(493.90) - Unspecified sinusitis (chronic) PAST SURGICAL HISTORY Procedure Laterality Date - CARDIAC CATH - CHOLECYSTECTOMY HX 90 gallbladder removed - CORONARY ARTERY BYPASS GRAFT 11/11/2015 - EYE SURGERY HX in [place]- eye ablation - F TOTAL ABDOMINAL HYSTERECTOMY - HYSTERECTOMY HX 1979 partial hysterectomy, still has ovaries - PAST SURGICAL HISTORY OF 10/2007 ptosis - PAST SURGICAL HISTORY OF 11/12/2015 CABG - SEPTOPLASTY 1983 nasal septum - STABISMUS SURG,ONE VERT MUSCLE 2011 ALLERGIES Albuterol; Beta Blockers [Beta-Blockers (Beta-Adrenergic Blocking Agts)]; Codeine; Doxycycline; Penicillins; Red Dye; Sulfa (Sulfonamide Antibiotics); Theophylline MEDICATIONS mupirocin (BACTROBAN) 2 % cream Apply 1 application to affected area three times daily. metroNIDAZOLE (METROGEL) 0.75 % Topical Gel apply twice daily to affected area fluticasone (FLONASE) 50 mcg/actuation nasal spray Use 2 Sprays in each nostril once daily. Rinse mouth after use. acetaminophen 325 mg-caffeine 40 mg-butalbital 50 mg (FIORICET) per tablet Take 1 tablet by mouth twice daily as needed. ezetimibe (ZETIA) 10 mg tablet Take 1 tablet by mouth once daily. nystatin (MYCOSTATIN) powder Apply 1 application to affected area four times daily as needed. ACCU-CHEK SOFTCLIX LANCETS lancets 1 Each once daily. ACCU-CHEK INNA PLUS TEST STRP test strip 1 Strip once daily. Dx: Insulin: no amiodarone (PACERONE) 200 mg tablet Take 0.5 tablets by mouth twice daily. levothyroxine (LEVOXYL) 25 mcg tablet Take 1 tablet by mouth once daily. Take on empty stomach. For Thyroid montelukast (SINGULAIR) 10 mg tablet Take 1 tablet by mouth once daily. potassium chloride 20 mEq TbER Take 1 tablet by mouth three times daily. furosemide (LASIX) 20 mg tablet Take 1 tablet by mouth once daily. carvedilol (COREG) 6.25 mg tablet Take 1 tablet by mouth twice daily. apixaban (ELIQUIS) 5 mg tab tab(s) Take 1 tablet by mouth twice daily. albuterol HFA (PROAIR HFA) 90 mcg/actuation inhaler Inhale 2 Puffs as instructed every 4 hours as needed. budesonide-formoterol (SYMBICORT) 160-4.5 mcg/actuation inhaler Inhale 2 Puffs as instructed twice daily. levalbuterol (XOPENEX) 0.63 mg/3 mL nebulizer solution acetaminophen (TYLENOL) 325 mg tablet 1-2 tablets Every 6 hours as needed Oral FAMILY HISTORY Problem Relation Age of Onset - Arthritis Mother - Heart Mother - anemia [OTHER] Mother - Heart Father - Diabetes Father - Stroke Father - Coronary Artery Disease Father - Cancer Maternal Grandfather kidney and stomach - Heart Sister - Heart Brother - COPD Sister - Heart Daughter - Hypertension Son Social History Substance Use Topics - Smoking status: Never Smoker - Smokeless tobacco: Never Used - Alcohol use Yes Comment: twice per month PHYSICAL EXAM BP 130/80 Pulse 76 Temp 36.6 ?C (97.8 ?F) (Temporal Artery) Resp 16 Wt 96.6 kg (213 lb) SpO2 97% BMI 40.25 kg/m? General Appearance: well appearing, in no acute distress, alert Skin: Skin color, texture, turgor normal for age; Head: normocephalic, atraumatic Eyes: conjunctiva pink and moist, no icterus, sclera white, non-injected Ears: external ears normal to inspection and palpation, canals clear, Left tympanic membrane normal. , Right tympanic membrane normal Oropharynx: lips normal without lesions, tongue midline and normal, soft palate, uvula, and tonsils normal Lungs: Lungs clear to auscultation. No wheezing, rhonchi, rales Heart: RRR , gallop, or rubs. No ectopy Abdomen: Abdomen soft, non-tender. Bowel sounds normal. No masses, organomegaly Bilateral Lower Extremities: No deformities, edema, skin discoloration, clubbing or cyanosis. Good capillary refill. DTAP,TDAP,TD(1 - Tdap) due on 1963 COLORECTAL CANCER SCREENING,SEE MODIFIER due on 06/21/2017 MAMMOGRAM due on 08/23/2017 DIABETES SCREEN due on 07/26/2020 LIPID SCREEN due on 07/26/2022 BONE DENSITY Completed ADULT PREVNAR-13 Completed INFLUENZA Completed PNEUMOVAX AGE 65 AND OVER WITH 5YR LOOKBACK Completed ASSESSMENT/PLAN: 1. Essential hypertension - ICD9: 401.9, ICD10: I10 (primary diagnosis) - good control - Continue current medication(s) - Encouraged dietary sodium restriction/DASH diet - Recommended regular aerobic exercise. - Recheck in 3 months, sooner should new symptoms or problems arise. - Goal of BP <140/90 - Recommended no refined sugar, low refined starch, healthy oil intake (olive oil), healthy protein (fish) along the lines of the Mediterranean diet. 2. Mixed hyperlipidemia - ICD9: 272.2, ICD10: E78.2 - good control - Continue current medication. - Encouraged following a low fat, low cholesterol diet. - Discussed the benefits of regular aerobic exercise and weight loss. - Encouraged following a low carbohydrate, healthy oil intake diet. 3. Gastroesophageal reflux disease without esophagitis - ICD9: 530.81, ICD10: K21.9 - Discussed lifestyle modifications including losing weight, limiting caffeine, no meals three hours before sleep and head of bed elevation - Continue treatment with Pepcid 20 mg QD - Follow up in 3months 4. Asthma, unspecified asthma severity, unspecified whether complicated, unspecified whether persistent - ICD9: 493.90, ICD10: J45.909 Moderate persistent Asthma stable - Continue current meds - Avoidance of triggers recommended - Follow up in 3 months and follow up with pulmonary as previously scheduled 5. Rhinitis, chronic - ICD9: 472.0, ICD10: J31.0 - Stable - Continue Flonase 6. Hypothyroidism due to medication - ICD9: 244.8, E980.5, ICD10: E03.2 - Instructed patient on importance of taking on an empty stomach either first thing in the morning or at bedtime. - check TSH, free T4 and T3 in 3 months - Follow up in 3 months 7. Paroxysmal atrial fibrillation (HCC) - ICD9: 427.31, ICD10: I48.0 - Stable - On eliquis and amiodarone - Managed by cardiology 8. Screening mammogram, encounter for - ICD9: V76.12, ICD10: Z12.31 - Encouraged monthly BSE - Follow up for annual exam in one year. - ROSALIA SCREENING 9. Prediabetes - ICD9: 790.29, ICD10: R73.03 - HgbA1C as previously ordered - Follow up in 3 months, sooner for new or worsening symptoms Ankit Mcghee APRN.CNP Prescription instructions reviewed with patient as applicable. Potential red flag symptoms discussed with the patient. Reviewed appropriate action plan to take if red flag symptoms occur. Patient agreeable to treatment plan. CNOV Observed: 02/14/2018 Status: COMPLETED Source: [place] 2:00 PM [facility] REPOSITORY Office Visit (INTMWS) ANTIONETTE WYNNE ([id number]) 1945 F Date Time Provider Department 02/14/18 2:00 PM ANKIT MCGHEE ([facility]) INTMWS During your visit today, we recorded the following information about you: Temperature Pulse Respiration Blood pressure 97.8 degrees 76/minute 16/minute 130/80 Weight 96.6 kg Ankit Mcghee APRN.CNP 02/14/2018 3:24 PM Signed CC: Patient presents with: Recheck: 3 month follow up HPI Antionette Wynne is a 72 year old female who presents today for 3 month follow up. HTN: Ms. Wynne indicates that she is feeling well and denies any symptoms referable to elevated blood pressure. Specifically denies headache, chest pain, palpitations and peripheral edema. Patient denies any side effects of her medication(s) and is compliant with their regimen. She does not check BP's generally. Antionette works out regularly 3 times per week with walking on treadmill and elipitical fitness trainer. She watches her diet for sodium, low fat and low cholesterol most of the time. Last 3 Encounter BP Readings: Date: BP: 02/14/2018 130/80 01/09/2018 138/78 11/09/2017 146/78 GERD. Since our last visit 3 months ago she has been doing fair. Current symptoms include heartburn, cough and frequent throat clearing. several times a week on therapy of famotidine (Pepcid) QD. Symptoms are precipitated with laying flat. BARTOLO: Wears cpap regularly. Followed by sleep medicine. Antionette Wynne 72 year old female presents today in follow up of moderate persistent asthma. Her current symptoms include daily (continually) shortness of breath and cough. Frequency of albuterol use is BID. Environmental factors include: no air conditioning No recent exacerbations. No recent ED visits or hospitalizations in the past year. REVIEW OF SYSTEMS General: no fevers, no chills, no night sweats, no recurrent infections, no change in appetite, no change in energy and no significant changes in weight HEENT: no frequent or significant headaches, no changes in hearing, no nose bleeds, no sinus or nasal problems Respiratory: no hemoptysis, See HPI Cardiovascular: no chest pain, no chest pressure and Positive for: intermittent bilateral lower extremity edema and palpitations GI: No nausea, vomiting, or diarrhea Endocrine: no fatigue, no weight gain, no weight loss, no hair loss, no dry skin, no cold intolerance, no heat intolerance, no neck pain/pressure, no polyuria, no polyphagia and no polydipsia Neurologic: No headache, numbness, tingling, neck stiffness, tremor, vertigo, dizziness, memory loss, syncope. PAST MEDICAL HISTORY Diagnosis Date - Acute non-ST segment elevation myocardial infarction (HCC) - Bronchitis, chronic (HCC) 07/13/2012 - Coronary arteriosclerosis - Cough 07/13/2012 - Esophageal reflux - Essential hypertension, benign - Generalized osteoarthrosis, unspecified site - Hypogammaglobulinemia (HCC) - Immunodeficiency disorder (HCC) - Impaired fasting glucose - Known medical problems History of coronary artery bypass grafting three vessel bypass - Left ventricular systolic dysfunction mild - Obesity - Obstructive sleep apnea syndrome - Other and unspecified hyperlipidemia - Rhinitis, chronic 07/13/2012 - Type 2 diabetes mellitus (HCC) - Unspecified asthma(493.90) - Unspecified sinusitis (chronic) PAST SURGICAL HISTORY Procedure Laterality Date - CARDIAC CATH - CHOLECYSTECTOMY HX 90s gallbladder removed - CORONARY ARTERY BYPASS GRAFT 11/11/2015 - EYE SURGERY HX in [place]- eye ablation - F TOTAL ABDOMINAL HYSTERECTOMY - HYSTERECTOMY HX 1979 partial hysterectomy, still has ovaries - PAST SURGICAL HISTORY OF 10/2007 ptosis - PAST SURGICAL HISTORY OF 11/12/2015 CABG - SEPTOPLASTY 1983 nasal septum - STABISMUS SURG,ONE VERT MUSCLE 2011 ALLERGIES Albuterol; Beta Blockers [Beta-Blockers (Beta-Adrenergic Blocking Agts)]; Codeine; Doxycycline; Penicillins; Red Dye; Sulfa (Sulfonamide Antibiotics); Theophylline MEDICATIONS mupirocin (BACTROBAN) 2 % cream Apply 1 application to affected area three times daily. metroNIDAZOLE (METROGEL) 0.75 % Topical Gel apply twice daily to affected area fluticasone (FLONASE) 50 mcg/actuation nasal spray Use 2 Sprays in each nostril once daily. Rinse mouth after use. acetaminophen 325 mg-caffeine 40 mg-butalbital 50 mg (FIORICET) per tablet Take 1 tablet by mouth twice daily as needed. ezetimibe (ZETIA) 10 mg tablet Take 1 tablet by mouth once daily. nystatin (MYCOSTATIN) powder Apply 1 application to affected area four times daily as needed. ACCU-CHEK SOFTCLIX LANCETS lancets 1 Each once daily. ACCU-CHEK INNA PLUS TEST STRP test strip 1 Strip once daily. Dx: Insulin: no amiodarone (PACERONE) 200 mg tablet Take 0.5 tablets by mouth twice daily. levothyroxine (LEVOXYL) 25 mcg tablet Take 1 tablet by mouth once daily. Take on empty stomach. For Thyroid montelukast (SINGULAIR) 10 mg tablet Take 1 tablet by mouth once daily. potassium chloride 20 mEq TbER Take 1 tablet by mouth three times daily. furosemide (LASIX) 20 mg tablet Take 1 tablet by mouth once daily. carvedilol (COREG) 6.25 mg tablet Take 1 tablet by mouth twice daily. apixaban (ELIQUIS) 5 mg tab tab(s) Take 1 tablet by mouth twice daily. albuterol HFA (PROAIR HFA) 90 mcg/actuation inhaler Inhale 2 Puffs as instructed every 4 hours as needed. budesonide-formoterol (SYMBICORT) 160-4.5 mcg/actuation inhaler Inhale 2 Puffs as instructed twice daily. levalbuterol (XOPENEX) 0.63 mg/3 mL nebulizer solution acetaminophen (TYLENOL) 325 mg tablet 1-2 tablets Every 6 hours as needed Oral FAMILY HISTORY Problem Relation Age of Onset - Arthritis Mother - Heart Mother - anemia [OTHER] Mother - Heart Father - Diabetes Father - Stroke Father - Coronary Artery Disease Father - Cancer Maternal Grandfather kidney and stomach - Heart Sister - Heart Brother - COPD Sister - Heart Daughter - Hypertension Son Social History Substance Use Topics - Smoking status: Never Smoker - Smokeless tobacco: Never Used - Alcohol use Yes Comment: twice per month PHYSICAL EXAM BP 130/80 Pulse 76 Temp 36.6 ?C (97.8 ?F) (Temporal Artery) Resp 16 Wt 96.6 kg (213 lb) SpO2 97% BMI 40.25 kg/m? General Appearance: well appearing, in no acute distress, alert Skin: Skin color, texture, turgor normal for age; Head: normocephalic, atraumatic Eyes: conjunctiva pink and moist, no icterus, sclera white, non-injected Ears: external ears normal to inspection and palpation, canals clear, Left tympanic membrane normal. , Right tympanic membrane normal Oropharynx: lips normal without lesions, tongue midline and normal, soft palate, uvula, and tonsils normal Lungs: Lungs clear to auscultation. No wheezing, rhonchi, rales Heart: RRR , gallop, or rubs. No ectopy Abdomen: Abdomen soft, non-tender. Bowel sounds normal. No masses, organomegaly Bilateral Lower Extremities: No deformities, edema, skin discoloration, clubbing or cyanosis. Good capillary refill. DTAP,TDAP,TD(1 - Tdap) due on 1963 COLORECTAL CANCER SCREENING,SEE MODIFIER due on 06/21/2017 MAMMOGRAM due on 08/23/2017 DIABETES SCREEN due on 07/26/2020 LIPID SCREEN due on 07/26/2022 BONE DENSITY Completed ADULT PREVNAR-13 Completed INFLUENZA Completed PNEUMOVAX AGE 65 AND OVER WITH 5YR LOOKBACK Completed ASSESSMENT/PLAN: 1. Essential hypertension - ICD9: 401.9, ICD10: I10 (primary diagnosis) - good control - Continue current medication(s) - Encouraged dietary sodium restriction/DASH diet - Recommended regular aerobic exercise. - Recheck in 3 months, sooner should new symptoms or problems arise. - Goal of BP <140/90 - Recommended no refined sugar, low refined starch, healthy oil intake (olive oil), healthy protein (fish) along the lines of the Mediterranean diet. 2. Mixed hyperlipidemia - ICD9: 272.2, ICD10: E78.2 - good control - Continue current medication. - Encouraged following a low fat, low cholesterol diet. - Discussed the benefits of regular aerobic exercise and weight loss. - Encouraged following a low carbohydrate, healthy oil intake diet. 3. Gastroesophageal reflux disease without esophagitis - ICD9: 530.81, ICD10: K21.9 - Discussed lifestyle modifications including losing weight, limiting caffeine, no meals three hours before sleep and head of bed elevation - Continue treatment with Pepcid 20 mg QD - Follow up in 3months 4. Asthma, unspecified asthma severity, unspecified whether complicated, unspecified whether persistent - ICD9: 493.90, ICD10: J45.909 Moderate persistent Asthma stable - Continue current meds - Avoidance of triggers recommended - Follow up in 3 months and follow up with pulmonary as previously scheduled 5. Rhinitis, chronic - ICD9: 472.0, ICD10: J31.0 - Stable - Continue Flonase 6. Hypothyroidism due to medication - ICD9: 244.8, E980.5, ICD10: E03.2 - Instructed patient on importance of taking on an empty stomach either first thing in the morning or at bedtime. - check TSH, free T4 and T3 in 3 months - Follow up in 3 months 7. Paroxysmal atrial fibrillation (HCC) - ICD9: 427.31, ICD10: I48.0 - Stable - On eliquis and amiodarone - Managed by cardiology 8. Screening mammogram, encounter for - ICD9: V76.12, ICD10: Z12.31 - Encouraged monthly BSE - Follow up for annual exam in one year. - ROSALIA SCREENING 9. Prediabetes - ICD9: 790.29, ICD10: R73.03 - HgbA1C as previously ordered - Follow up in 3 months, sooner for new or worsening symptoms Ankit Mcghee APRN.CYCLE DIRECTOR Prescription instructions reviewed with patient as applicable. Potential red flag symptoms discussed with the patient. Reviewed appropriate action plan to take if red flag symptoms occur. Patient agreeable to treatment plan. Referring Provider: MARY CHANG [[id number]] Allergies As of Date: 02/14/2018 Noted Allergy Reaction ALBUTEROL 11/27/2015 14 - Other: See Comments Comments: Tachycardia. HEART RACES, SHORTNESS OF BREATH (PT USES XOPENEX INHALER AT HOME) BETA BLOCKERS (BETA-BLOCKERS (BET*11/16/2007 14 - Other: See Comments Comments: Wheezing. Dyspnea CODEINE 11/16/2007 11 - Vomiting 14 - Other: See Comments Comments: Nausea DOXYCYCLINE 11/19/2008 4 - Hives PENICILLINS 11/16/2007 2 - Rash 4 - Hives RED DYE 03/03/2015 5 - Intolerance Comments: headaches SULFA (SULFONAMIDE ANTIBIOTICS) 11/16/2007 2 - Rash 4 - Hives THEOPHYLLINE 11/16/2007 2 - Rash Date Reviewed: 02/14/2018 Reviewed by: Darby Prescott Ma - Fully Assessed Reason for Visit: Recheck [92] Cmt: 3 month follow up Primary Visit Diagnosis:Essential hypertension [I10] Other Visit Diagnoses:Mixed hyperlipidemia [E78.2] Gastroesophageal reflux disease without esophagitis [K21.9] Asthma, unspecified asthma severity, unspecified whether complicated, unspecified whether persistent [J45.909] Rhinitis, chronic [J31.0] Hypothyroidism due to medication [E03.2] Paroxysmal atrial fibrillation (HCC) [I48.0] Screening mammogram, encounter for [Z12.31] Prediabetes [R73.03] Order(s):[facility] SCREENING [[id number]] Order #: [id number] FUTURE Prescriptions as of 02/14/2018 Sig: MUPIROCIN 2 % TOPICAL CREAM Apply 1 application to affect* METRONIDAZOLE 0.75 % TOPICAL * apply twice daily to affected* FLUTICASONE 50 MCG/ACTUATION * Use 2 Sprays in each nostril * [id number]-[id number]* Take 1 tablet by mouth twice * EZETIMIBE 10 MG TABLET Take 1 tablet by mouth once d* NYSTATIN 100,000 UNIT/GRAM TO* Apply 1 application to affect* ACCU-CHEK SOFTCLIX LANCETS 1 Each once daily. ACCU-CHEK INNA PLUS TEST STR* 1 Strip once daily. Dx: Insu* AMIODARONE 200 MG TABLET Take 0.5 tablets by mouth twi* LEVOTHYROXINE 25 MCG TABLET Take 1 tablet by mouth once d* MONTELUKAST 10 MG TABLET Take 1 tablet by mouth once d* POTASSIUM CHLORIDE ER 20 MEQ * Take 1 tablet by mouth three * FUROSEMIDE 20 MG TABLET Take 1 tablet by mouth once d* CARVEDILOL 6.25 MG TABLET Take 1 tablet by mouth twice * APIXABAN 5 MG TABLET Take 1 tablet by mouth twice * ALBUTEROL SULFATE HFA 90 MCG/* Inhale 2 Puffs as instructed * BUDESONIDE-FORMOTEROL HFA 160* Inhale 2 Puffs as instructed * LEVALBUTEROL 0.63 MG/3 ML TANNA* ACETAMINOPHEN 325 MG TABLET 1-2 tablets Every 6 hours as * Problem List As Of Date 02/14/2018 Noted Resolved Hyperlipidemia [E78.5] INVALID FOR*08/04/2015 More... Impaired fasting glucose [R73.01] INVALID FOR*05/05/2015 Hypertension [I10] INVALID FOR* More... Migraine without aura, not intractable, with st*INVALID FOR* GERD (gastroesophageal reflux disease) [K21.9] INVALID FOR* More... Bronchitis, chronic [J42] INVALID FOR* Cough [R05] INVALID FOR* Rhinitis, chronic [J31.0] INVALID FOR* Prediabetes [R73.03] INVALID FOR* More... Hypogammaglobulinemia (HCC) [D80.1] INVALID FOR* More... Mixed hyperlipidemia [E78.2] INVALID FOR* More... Atherosclerosis of squaxin coronary artery of na*INVALID FOR* More... S/P coronary artery bypass graft x 2 [Z95.1] INVALID FOR* More... Paroxysmal atrial fibrillation (HCC) [I48.0] INVALID FOR* More... Ptosis of eyelid, right [H02.401] INVALID FOR*09/09/2017 Disposition: Return in about 3 months (around 05/17/2018). Follow-up and Disposition History Recorded Encounter Status:Closed by ANKIT MCGHEE CNP on 02/14/18 INITAL EVALUATION (1) Observed: 02/08/2018 Status: F Source: [place] - PT 6:24 PM [facility] REPOSITORY [facility] [address] [place] [address]. [address] [place] [address] Fax REHABILITATION SERVICES INITIAL EVALUATION MR#: [id number] Acct: [id number] Name: ANTIONETET WYNNE Rep #: [id number] : 1945 72 From: Audra Segovia MPT Referring Dr.: Haider Jones MD Status: REG RCR Insurance: MEDICARE PART A B [employer] Patient's Visit Information ANTIONETTE WYNNE is a 72 year old F referred to Physical Therapy by Haider Jones with a diagnosis of acute resp failure, weakness, difficulty ambulating. Date of Evaluation: 01/11/18 Physical Therapist: Audra Segovia - Visit Plan Frequency: 3x /Week Duration: 6 Weeks Plan: DC PT to [facility] - Subjective Subjective: She got out of the hospital a week ago last Tuesday and was in Rehab for a week. She go the RSV virus which turned into pneumonia and a staff infection in lungs that lead to acute respiratory failure and now she has a sinus inflection that was dx on Tuesday and she has been MONZON and dizziness since being in the hospital. 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 She is a [employer] member and she wants to get back to that after this. She has also been in cardiac rehab from heart surgery and [place] due to blockages and had a CABG X4. She is SOB since she was 39. She has immune difficency and dx in 2008.....she new something was wrong cause she was sick all the time. All the infections affect her lungs. She had recent bloodwork done and she will get her results soon and see Dr Quintero and is a specialist in immune difficiency and it is genetic. Pt has arthritis pain all the time and currently a MONZON but that is normal for her. Her legs feel real weak with walking. She feels too weak to make a sharp turn etc. L leg was affected after taking the veins out and goes to sleep from heart surgery. Stairs: uses a railing and can go up alternating and goes down sideways with two feet to a stair. She has a bipap machine and is sleeping well. Dr Ames is PCP and pulmonary is Dr Sevilla. She gets sick to her stomach when she bends fw to get something off the floor and she gets dizzy. She feels that her balance sucks. The room does not spin. SHe also has some fluid on her ear. - Pain Headache Pain Intensity (Out of 10): 0 - Objective Gait: walks with slow steppage gait with decrease stride, decrease arm swing, and looking at the floor. FGA: 8. LE MMT: B hip flex 4-/5, B hip abd 4- /5, B knee flex 4-/5, B knee ext 4/5, able to do 1/2 normal ROM bridge,. Pt had a fear of falling off the table when going sit to supine. Needed min A to make sure pt felt comfortable not rolling off table and going supine to sit. - Balance Scores Functional Gait Assessment Score: 13 % Disability: 56.6700 - Goals Goal 1:: I HEP Goal Time Frame: 4-6 Weeks Goal 2:: Increase LE strength by 1/2 muscle grade to increase overall function (LE MMT at time of eval: LE MMT: B hip flex 4-/5, B hip abd 4-/5, B knee flex 4-/5, B knee ext 4/5, able to do 1/2 normal ROM bridge) Goal Time Frame: 4-6 Weeks Goal 3:: Improve FGA score by 5 points to decrease fall risk. Increase FGA from 8 to 13) Goal Time Frame: 4-6 Weeks Goal 4:: Be able to walk back to the treatment rooms without SOB. Goal Time Frame: 4-6 Weeks - Rehabilitation Potential Rehabilitation Potential: Good - Anticipated Interventions Patient/Client Instruction: Educate patient on: Condition, Plan of Care For the Purpose of:: To improve nutrient delivery to tissue, To increase oxygenation perfusion, To improve muscle performance and motor function, To improve ability to perform ADL's, To increase tolerance to activity/condition/position, To improve performance and independence with ADL's, To decrease level of supervision to perform tasks, To improve ability of physical actions for home/community/work/leisure, To improve gait and locomotor functions, To improve endurance, To improve balance, To improve safety with gait Therapeutic Exercise to Include: Strength training, Endurance training, Balance training, Body mechanics, Postural training, Flexibilty training, Gait and locomotor training, Active ROM For the Purpose of:: To improve muscle performance and motor function, To improve ability to perform ADL's, To increase tolerance to activity/condition/position, To improve performance and independence with ADL's, To decrease level of supervision to perform tasks, To improve ability of physical actions for home/community/work/leisure, To improve gait and locomotor functions, To improve health of tissue, To improve endurance, To improve balance, To improve safety with gait Functional Training to Include: Gait training For the Purpose of:: To improve gait and locomotor functions, To improve safety with gait Thank you for the opportunity to evaluate your patient. For Medicare and Medicare HMO plans, please review the plan of care and approve it. It will need to be FAXED BACK to us at [phone] for Medicare purposes. Please let me know if there are questions or concerns regarding this plan of care. Physician Signature: Date: <Electronically signed by Audra Segovia MPT> 02/08/18 [id number] CC: Mary Chang MD; Haider Jones MD Signed For Medicare only, by signing this I certify the plan of care. Physicians Signature Date CNPTOUTREACH Observed: 01/31/2018 Status: COMPLETED Source: [place] 12:00 AM [facility] REPOS[facility] Patient Outreach ([facility]) ANTIONETTE WYNNE ([id number]) 1945 F Date Time Provider Department 01/31/18 MARY CHANG [facility] During your visit today, we recorded the following information about you: Allergies As of Date: 01/31/2018 Noted Allergy Reaction ALBUTEROL 11/27/2015 14 - Other: See Comments Comments: Tachycardia. HEART RACES, SHORTNESS OF BREATH (PT USES XOPENEX INHALER AT HOME) BETA BLOCKERS (BETA-BLOCKERS (BET*11/16/2007 14 - Other: See Comments Comments: Wheezing. Dyspnea CODEINE 11/16/2007 11 - Vomiting 14 - Other: See Comments Comments: Nausea DOXYCYCLINE 11/19/2008 4 - Hives PENICILLINS 11/16/2007 2 - Rash 4 - Hives RED DYE 03/03/2015 5 - Intolerance Comments: headaches SULFA (SULFONAMIDE ANTIBIOTICS) 11/16/2007 2 - Rash 4 - Hives THEOPHYLLINE 11/16/2007 2 - Rash Date Reviewed: 11/09/2017 Reviewed by: Cristina Quiroga [employer] - Fully Assessed Visit Diagnosis:Medication management [Z79.899] Order(s):ALBUMIN/CREAT RATIO RND UR [SQUACR] Order #: [id number] FUTURE HGB A1C [FEFIA6O] Order #: [id number] FUTURE Prescriptions as of 01/31/2018 Sig: MUPIROCIN 2 % TOPICAL CREAM Apply 1 application to affect* METRONIDAZOLE 0.75 % TOPICAL * apply twice daily to affected* FLUTICASONE 50 MCG/ACTUATION * Use 2 Sprays in each nostril * ONCLJFILHS-BLPGRUIZJUZAJ-FESE* Take 1 tablet by mouth twice * NYSTATIN 100,000 UNIT/GRAM TO* Apply 1 application to affect* X EZETIMIBE 10 MG TABLET Take 1 tablet by mouth once d* X ACCU-CHEK SOFTCLIX LANCETS 1 Each once daily. X ACCU-CHEK INNA PLUS TEST STR* 1 Strip once daily. Dx: Insu* LEVOTHYROXINE 25 MCG TABLET Take 1 tablet by mouth once d* X AMIODARONE 200 MG TABLET Take 0.5 tablets by mouth twi* X MONTELUKAST 10 MG TABLET Take 1 tablet by mouth once d* POTASSIUM CHLORIDE ER 20 MEQ * Take 1 tablet by mouth three * FUROSEMIDE 20 MG TABLET Take 1 tablet by mouth once d* CARVEDILOL 6.25 MG TABLET Take 1 tablet by mouth twice * APIXABAN 5 MG TABLET Take 1 tablet by mouth twice * ALBUTEROL SULFATE HFA 90 MCG/* Inhale 2 Puffs as instructed * BUDESONIDE-FORMOTEROL HFA 160* Inhale 2 Puffs as instructed * LEVALBUTEROL 0.63 MG/3 ML TANNA* X ACETAMINOPHEN 325 MG TABLET 1-2 tablets Every 6 hours as * Problem List As Of Date 01/31/2018 Noted Resolved Hyperlipidemia [E78.5] INVALID FOR*08/04/2015 More... Impaired fasting glucose [R73.01] INVALID FOR*05/05/2015 Hypertension [I10] INVALID FOR* More... Migraine without aura, not intractable, with st*INVALID FOR* GERD (gastroesophageal reflux disease) [K21.9] INVALID FOR* More... Bronchitis, chronic [J42] INVALID FOR* Cough [R05] INVALID FOR* Rhinitis, chronic [J31.0] INVALID FOR* Prediabetes [R73.03] INVALID FOR* More... Hypogammaglobulinemia (HCC) [D80.1] INVALID FOR* More... Mixed hyperlipidemia [E78.2] INVALID FOR* More... Atherosclerosis of squaxin coronary artery of na*INVALID FOR* More... S/P coronary artery bypass graft x 2 [Z95.1] INVALID FOR* More... Paroxysmal atrial fibrillation (HCC) [I48.0] INVALID FOR* More... Ptosis of eyelid, right [H02.401] INVALID FOR*09/09/2017 Encounter Status:Closed by [employer], PRODUSER on 06/23/18 T4 TOTAL, THYROXIN Collected: 01/18/2018 Status: F Source: [place] 3:16 PM [facility] REPOSITORY TYPE CODE TESTS RESULT OUT OF REFERENCE UNITS RANGE LAB L501.9310 4.8-13.9 ug/dL T4 High THYROXIN 14.1 Performed By: #### L501.9310, L501.9520 #### [facility] [address] [place], [place], [id number] THYROID STIM HORMONE Collected: 01/18/2018 Status: F Source: [place] (TSH) 3:16 PM [facility] REPOSITORY TYPE CODE TESTS RESULT OUT OF RANGE REFERENCE UNITS LAB L501.9520 0.358-3.74 uIU/mL High TSH 4.08 Performed By: #### L501.9310, L501.9520 #### [facility] [address] [place], [address] PULMONARY VISIT REPORT Observed: 01/13/2018 Status: F Source: [place] 1:26 PM [facility] REPOSITORY [facility] [address] [place] [address] OFFICE VISIT Date of Service: 01/13/18 MR#: [id number] Acct: [id number] Name: ANTIONETTE WYNNE Rep #: [id number] : 1945 Provider: Rosaline Sheikh Age/Sex: 72/F Location: [facility] Status: Signed Assessment AND Plan 1. Moderate persistent asthma without complication J45.40 Status Chronic Plan Deteriorated. She does not appear to be in exacerbation today, but she has had several exacerbations over the past few months. Plan to repeat pulmonary function tests in the next 3 weeks and have her follow-up with Dr. Sevilla in 1 month to discuss test results. At that time he can evaluate the appropriateness of current inhalers. No change in maintenance medications until PFTs can be reviewed. 2. BARTOLO (obstructive sleep apnea) G47.33 Status Chronic Plan Stable. No indication for titration study at this time. She is using and benefiting from current Therapy. Requested a download prior to her one-month follow-up with Dr. Sevilla. 3. Restrictive lung disease J98.4 Status Chronic Plan Continue supportive measures, evaluate for possible hypoxia with exertion with a formal pulmonary stress test. Last pulmonary stress test showed that the patient did desaturate from 97% down to 91%, indicating that close following is appropriate. If the patient does not require supplemental oxygen in order will be initiated. Follow- up with Dr. Sevilla in 1 month. Orders Orders: 4. Acute recurrent maxillary sinusitis J01.01 Plan The patient reports that prior to moving to [place] she was [place] She would like to find ENT here in town to develop a patient relationship with. Referring to Dr. Rojo, plan to follow- up with this patient in 1 month. Plan Detail Other Orders Orders: Referrals: [facility] Hospital FU: Chief Complaint: Sinus congestion HPI Comments Details: This is a 72 year old very pleasant f, currently under the care of Mary Chang, here to follow up after a recent hospitalization at [facility], from December 16, 2017 through January 01, 2018 for severe asthma exacerbation secondary to RSV with sepsis. The hospital stay was complicated by temporary ventilatory support. 10 pages of hospital documentation was reviewed, and found to be significant for a chest x-ray completed on December 16 showing cardiomegaly and no acute infiltrate, repeat chest x-ray on December 16 showed ET tube terminating approximately 5.3 cm above the millie, KUB confirmed placement of a gastric tube, chest x-ray on December 16 status post central line showed appropriate placement of a right subclavian catheter. Repeat chest x-ray on December 17 showed no pneumonia but did show pleural reactive change in the left costophrenic angle, chest x-ray on December 18 showed mild bibasilar atelectasis. Upon discharge, the patient completed a 12 day course of prednisone and was transferred to the transitional care unit from December 22 January 01. Today, she presents to the office ambulatory and currently on room air. She is currently being treated for a sinus infection by her PCP, she is on Levaquin 500 mg for 10 days. She is having significant headaches, sinus pressure, sinus congestion and drainage. She has a cough that is productive of thick clear sputum. She continues to experience shortness of breath on exertion. She is complaining of left ear pain, and reports that when she was seen by her PCP provider last week they noted that she had fluid on that tympanic membrane. She has not used any fddm-wct-ogxoomn medications for her symptoms, she was told to avoid ibuprofen because of her kidney function and heart, and she reports that Tylenol is not effective for her. She continues compliance with Symbicort 2 puffs twice daily. She does rinse her mouth out after each use. She denies any medication side effects such as sore throat or thrush. She is using her DuoNeb usually once daily around dinnertime. She does report that the DuoNeb does provide her with some relief of her shortness of breath. She is compliant with her Pap therapy. No download available for review, she admits that she forgot to take the card in for a reading. She reports feeling rested in the morning. She is not currently napping. She does have some occasional difficulties with leaks but it is not frequently. Intake Vital Signs01/13/18 Height 5 ft 1 in 01/13/18 Weight: 218 lb Intake Visit Reasons: Hospital FU Chief Complaint: Acute Resp Failure, Sepsis DME Vendor: Abbie Accompanied by: Self Allergies Beta-Blockers (Beta-Adrenergic Bloc Allergy (Verified 01/13/18 10:29) Shortness of breath doxycycline Allergy (Verified 01/13/18 10:29) Hives Penicillins Allergy (Verified 01/13/18 10:29) Rash red dye Allergy (Verified 01/13/18 10:29) Unknown Sulfa (Sulfonamide Antibiotics) Allergy (Verified 01/13/18 10:29) Rash theophylline Allergy (Verified 01/13/18 10:29) Rash codeine Adverse Reaction (Verified 01/13/18 10:29) Nausea Medications Budesonide/Formoterol 160/4.5 [Symbicort 160/4.5 Mcg Inhaler (SP)] 2 puff INHALATION BID PRN 11/09/15 [History Confirmed 01/13/18] Montelukast [Singulair] 10 mg PO DAILY 11/09/15 [History Confirmed 01/13/18] Acetaminophen/Butalbital/Caffe [Fioricet] 1 tab PO BID PRN PRN 03/26/17 [History Confirmed 01/13/18] Ezetimibe [Zetia] 10 mg PO DAILY 03/26/17 [History Confirmed 01/13/18] Potassium Chloride [K-Dur] 20 meq PO TID 03/26/17 [History Confirmed 01/13/18] amiodarone 200 mg tablet 100 mg PO DAILY tab 08/22/17 [History Confirmed 01/13/18] benzonatate 100 mg capsule 100 mg PO Q6H 10/19/17 [History Confirmed 01/13/18] levalbuterol 0.63 mg/3 mL solution for nebulization 0.63 mg INHALATION Q4H PRN #120 vial 10/28/17 [Rx Confirmed 01/13/18] Albuterol IH (ProAir) [Proair Hfa] 2 puff INHALATION Q4H PRN PRN 12/17/17 [History Confirmed 01/13/18] Apixaban [Eliquis] 5 mg PO BID 12/22/17 [History Confirmed 01/13/18] Ipratropium/Albuterol Sulfate [Duoneb] 3 ml INHALATION Q4HWA.RT 12/22/17 [History Confirmed 01/13/18] Acetaminophen [Tylenol] 1,000 mg PO Q8H PRN PRN tab 12/28/17 [Rx Confirmed 01/13/18] Famotidine [Pepcid] 20 mg PO BID #60 tab 12/28/17 [Rx Confirmed 01/13/18] Insulin Aspart [Novolog Flexpen] 7 units SC TIDAC #1 flexpen 12/28/17 [Rx Confirmed 01/13/18] Insulin Detemir [Levemir FlexPen] 10 units SC 1100,2200 #1 insuln.pen 12/28/17 [Rx Confirmed 01/13/18] Levothyroxine [Synthroid] 25 mcg PO DAILY #30 tab 12/28/17 [Rx Confirmed 01/13/18] Nystatin 500,000 unit PO 4X/DAY #100 ml 12/28/17 [Rx Confirmed 01/13/18] carvedilol 6.25 mg tablet 6.25 mg PO BID #180 tab 01/03/18 [Rx Confirmed 01/13/18] furosemide 40 mg tablet 40 mg PO QDAY #90 tab 01/03/18 [Rx Confirmed 01/13/18] levofloxacin 500 mg tablet 500 mg PO Q24H 01/13/18 [History Confirmed 01/13/18] PFSH Medical History Arteriosclerotic heart disease (ASHD) (Chronic) Asthma (Chronic) Restrictive lung disease (Chronic) Paroxysmal atrial fibrillation (Chronic) Nonrheumatic tricuspid valve regurgitation (Chronic) Dilated cardiomyopathy (Chronic) 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) HTN (hypertension) (Chronic) Diabetes mellitus (Chronic) HLD (hyperlipidemia) (Chronic) DM type 2 (diabetes mellitus, type 2) (Chronic) Hypogammaglobulinemia (Chronic) Morbid obesity (Chronic) Migraines (Chronic) BARTOLO (obstructive sleep apnea) (Chronic) CAD (coronary artery disease) (Chronic) Surgical History 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) Family History Father CAD (coronary artery disease) Social History Smoking Status: Never smoker second hand exposure: No alcohol intake: never substance use type: does not use caffeine: Yes Type: coffee what type of physical activity do you participate in: running, walking frequency: 3-4 times per week Review of Systems Const CONSTITUTIONAL: Positive night sweats (during day too) and headache(s) (severe); negative anorexia, body ache, chills, daytime sleepiness, fever(s), oral thrush, stops breathing during sleep, weight loss, sleeping in chair, fatigue, weight loss, weight gain, frequent colds, seasonal allergies, other or orthopnea EETM Ear Nose Throat Mouth: Positive hearing normal, hoarseness, ear pain, headache(s) (severe), nasal congestion, nasal discharge and sinus pain; negative hard of hearing, dry mouth in morning, change in vision, itchy eyes, eye pain, swallowing Difficulty, nose bleed, mouth pain, post nasal drip, sinus pressure, sore throat or other Cardio Cardiovascular: Negative chest pain, chest pain at rest, chest pain with activity, irregular heart rhythm, edema, shortness of breath when lying down, palpitations, murmur or other Resp Respiratory: Positive as per HPI, shortness of breath shortness of breath: Positive with activity and cough cough: Positive productive (last 2 days) color: Positive thick; negative pain with cough, wheezing, chest congestion, chest tightness, pain on inspiration, inhalers, increase use of rescue inhalers, snoring, apnea or other Gastro Gastrointestional: Negative bloody stools, change in appetite, difficulty swallowing, reflux, hematemesis, melena stool, loose stool, constipation or other Genitourinary: Negative blood in urine, nocturia, pain with urination or other Musc Musculoskeletal: Negative body pain, back pain, neck pain or other Skin/Breast Skin/Breast: Negative dry skin, itching, rash, unusual bruising, breast lump or other Neuro Neurological: Positive weakness; negative restless legs, confusion or other Psych Psychocological: Negative abnormal sleep pattern, anxiety, thoughts of hurting self/others, hopelessness or other Lymph Lymphatic: Negative easy bleeding, easy bruising, swollen lymph nodes or other Exam Const Constitutional: Positive conversant, cooperative, in no acute respiratory distress, healthy appearing, well developed, well nourished, good hygiene and obese Head Head: Positive normocephalic, atraumatic, maxillary sinus tenderness and frontal sinus tenderness; negative cyanosis of lips/distal nose Eyes Eye: Positive clear conjunctiva and nystagmus; negative scleral abnormality Ears Ear: Positive hearing normal and external ears normal; negative hard of hearing Nose Nose: Positive external nose normal and no nasal discharge; negative epistaxis Mouth Mouth: Positive oral mucosae normal, no lesions, good dentition and posterior oropharynx is adequate; negative post nasal drip, malodorous breath or oral thrush present Mallampati Score: II: Mallampati Score Neck Neck: Positive normal visual inspection, full ROM and trachea midline; negative lymphadenopathy, JVD or tender Chest Wall Chest: Positive normal inspection of the chest and symmetric chest movement; negative increased A/P diameter Resp lung sounds: Positive clear to auscultation, diminished, normal expiratory time and normal respiratory effort; negative wheezes, rhonchi, rales, dullness to percussion or wheeze present on forced exhalation Cardio Cardiac: Positive regular rate, regular rhythm, S1 normal and S2 normal; negative murmur GI GI: Positive normal to inspection, normal bowel sounds and obese; negative distended Genitourinary: Positive deferred Musc Musculoskeletal: Positive steady gait, ROM normal and kyphosis; negative scoliosis Skin Pulmonary Skin Exam: Positive intact; negative rash, lesion, ulcers, erythema, scaly or dermal atrophy Pulses Pulse: Yes pulses normal x4 extremities Extremities Extremities: No clubbing, No cyanosis, Yes edema Location: lower extremity location: Right pitting trace, Yes capillary refill normal, No stasis dermatitis Neuro Neurologic: Yes conversant, Yes no focal neuro deficits, Yes cooperative, Yes normal cognition, Yes normal coordination, Yes normal concentration, Yes understands questions Lymph Lymphatic: No lymphadenopathy, No tenderness, No cervical adenopathy, No axillary adenopathy Psych Appearance: Positive grossly normal, eye contact and well kempt Mental Status: Positive mental status grossly normal Mood: Positive congruent mood Affect: Positive normal affect Coding Level of Care Code Off vis,est,level 4 Diagnoses Moderate persistent asthma without complication J45.40 Asthma complication type: uncomplicated Asthma persistence: persistent Asthma severity: moderate BARTOLO (obstructive sleep apnea) G47.33 Restrictive lung disease J98.4 Acute recurrent maxillary sinusitis J01.01 Sinusitis location: maxillary Chronicity: acute Recurrence: recurrent 01/13/18 1326 <Electronically signed by Rosaline DOOLEY> Date Rosaline FRANCESC Zeenater Signature: Date (if applicable) CC: Mary Chang MD INITAL EVALUATION (1) Observed: 01/11/2018 Status: F Source: [place] - PT 7:03 PM [facility] REPOSITORY [facility] [address] [place], [place] [address] Fax REHABILITATION SERVICES INITIAL EVALUATION MR#: [id number] Acct: [id number] Name: ANTIONETTE WYNNE Rep #: [id number] : 1945 72 From: Audra Segovia MPT Referring Dr.: Haider Jones MD Status: REG RCR Insurance: MEDICARE PART A B [employer] Patient's Visit Information ANTIONETTE WYNNE is a 72 year old F referred to Physical Therapy by Haider Jones with a diagnosis of acute resp failure, weakness, difficulty ambulating. Date of Evaluation: 01/11/18 Physical Therapist: Audra Segovia - Visit Plan Frequency: 3x /Week Duration: 6 Weeks Plan: 3X/ week for 6 weeks for endurance activities, LE strengthening, balance activities, with HEP and H AND W rountine to be able to do independently at DC - Subjective Subjective: She got out of the hospital a week ago last Tuesday and was in Rehab for a week. She go the RSV virus which turned into pneumonia and a staff infection in lungs that lead to acute respiratory failure and now she has a sinus inflection that was dx on Tuesday and she has been MONZON and dizziness since being in the hospital. 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 She is a [employer] member and she wants to get back to that after this. She has also been in cardiac rehab from heart surgery and [place] due to blockages and had a CABG X4. She is SOB since she was 39. She has immune difficency and dx in 2008.....she new something was wrong cause she was sick all the time. All the infections affect her lungs. She had recent bloodwork done and she will get her results soon and see Dr Quintero and is a specialist in immune difficiency and it is genetic. Pt has arthritis pain all the time and currently a MONZON but that is normal for her. Her legs feel real weak with walking. She feels too weak to make a sharp turn etc. L leg was affected after taking the veins out and goes to sleep from heart surgery. Stairs: uses a railing and can go up alternating and goes down sideways with two feet to a stair. She has a bipap machine and is sleeping well. Dr Ames is PCP and pulmonary is Dr Sevilla. She gets sick to her stomach when she bends fw to get something off the floor and she gets dizzy. She feels that her balance sucks. The room does not spin. SHe also has some fluid on her ear. - Objective Gait: walks with slow steppage gait with decrease stride, decrease arm swing, and looking at the floor. FGA: 8. LE MMT: B hip flex 4-/5, B hip abd 4- /5, B knee flex 4-/5, B knee ext 4/5, able to do 1/2 normal ROM bridge,. Pt had a fear of falling off the table when going sit to supine. Needed min A to make sure pt felt comfortable not rolling off table and going supine to sit. - Balance Scores Functional Gait Assessment Score: 8 % Disability: 73.3400 - Goals Goal 1:: I HEP Goal Time Frame: 4-6 Weeks Goal 2:: Increase LE strength by 1/2 muscle grade to increase overall function (LE MMT at time of eval: LE MMT: B hip flex 4-/5, B hip abd 4-/5, B knee flex 4-/5, B knee ext 4/5, able to do 1/2 normal ROM bridge) Goal Time Frame: 4-6 Weeks Goal 3:: Improve FGA score by 5 points to decrease fall risk. Increase FGA from 8 to 13) Goal Time Frame: 4-6 Weeks Goal 4:: Be able to walk back to the treatment rooms without SOB. Goal Time Frame: 4-6 Weeks - Rehabilitation Potential Rehabilitation Potential: Good - Anticipated Interventions Patient/Client Instruction: Educate patient on: Condition, Plan of Care For the Purpose of:: To improve nutrient delivery to tissue, To increase oxygenation perfusion, To improve muscle performance and motor function, To improve ability to perform ADL's, To increase tolerance to activity/condition/position, To improve performance and independence with ADL's, To decrease level of supervision to perform tasks, To improve ability of physical actions for home/community/work/leisure, To improve gait and locomotor functions, To improve endurance, To improve balance, To improve safety with gait Therapeutic Exercise to Include: Strength training, Endurance training, Balance training, Body mechanics, Postural training, Flexibilty training, Gait and locomotor training, Active ROM For the Purpose of:: To improve muscle performance and motor function, To improve ability to perform ADL's, To increase tolerance to activity/condition/position, To improve performance and independence with ADL's, To decrease level of supervision to perform tasks, To improve ability of physical actions for home/community/work/leisure, To improve gait and locomotor functions, To improve health of tissue, To improve endurance, To improve balance, To improve safety with gait Functional Training to Include: Gait training For the Purpose of:: To improve gait and locomotor functions, To improve safety with gait Thank you for the opportunity to evaluate your patient. For Medicare and Medicare HMO plans, please review the plan of care and approve it. It will need to be FAXED BACK to us at [phone] for Medicare purposes. Please let me know if there are questions or concerns regarding this plan of care. Physician Signature: Date: <Electronically signed by Audra Segovia MPT> 01/11/18 1903 CC: Mary Chang MD; Haider Jones MD Signed For Medicare only, by signing this I certify the plan of care. Physicians Signature Date CNCO Observed: 01/10/2018 Status: COMPLETED Source: [place] 12:00 AM [facility] REPOSIT[facility] Letter Text Antionette Wynne [address] [facility] [address] [facility] [address] 01/10/2018 [facility] #: [id number] Dear , Due to a change in the provider's schedule it has been necessary to reschedule your Appointment. Your original appointment was scheduled for February 10, 2018 at 2:40 PM with Mary Chang M.D. Your new appointment is now scheduled on February 14, 2018 at 2 PM with Ankit Mcghee CNP If this new appointment is not convenient for you, please contact our office at [phone]. Thank you for choosing the [facility] as your Healthcare Provider . Sincerely, Internal Medicine Appointment Office PROGRESS Observed: 01/09/2018 Status: COMPLETED Source: [place] 8:02 AM [facility] RE[facility]IT[facility] HNO ID: [id number] Author: Ankit Mcghee Service: (none) Author Type: Nurse Practitioner Type: Progress Notes Filed: 01/09/2018 8:56 AM Note Text: CC: Patient presents with: Recheck: Hospital follow up, Pt complains of sinus pressure headaches HPI Antionette Wynne is a 72 year old female who presents today for [facility] admission follow up.Patient presented to the ER with an Pulse ox of 64% and she was nearly unresponsive. Patient was admitted on 12/16/17 for acute respiratory distress requiring intubation secondary to RSV B infection and MSSA pneumonia. Patient was admitted to ICU initially. Patient was put on IV Levaquin, IV Solu-Medrol and DuoNeb every 4 hours. Patient was eventually extubated and transferred to in patient rehab for strengthening. Patient was discharged on 01/01/18 home with her and outpatient PT. Today she has complaints of ongoing fatigue and headaches since she came home from the hospital. Patient states she also feels foggy with the headaches. Headaches occur once or twice daily. Pain is located in the frontal and maxillary sinuses. It feels like someone is pushing on her face. Associated symptoms include chills, sore throat, rhinorrhea, ear pain L>R, productive cough with yellowish-green sputum. Taking migraine medication and motrin for headache relief. Denies fevers, SOB, wheezing, abdominal pain, nausea, vomiting, diarrhea or urinary symptoms. Does note some vaginal itching since being discharged. Patient has PT today after this appointment. REVIEW OF SYSTEMS General: no fevers, no night sweats, no recurrent infections, no change in appetite and no significant changes in weight HEENT: no changes in hearing, no visual changes, no nose bleeds, See HPI Neck: no lumps, no pain and no swelling Respiratory: no wheezing, no shortness of breath, no hemoptysis Cardiovascular: no chest pain, no chest pressure, no palpitations and no swelling GI: No nausea, vomiting, or diarrhea Hematologic/Lymph: Negative for prolonged bleeding, bruising easily or swollen nodes Neurologic: No headache, weakness, numbness, tingling, neck stiffness, tremor, vertigo, dizziness, memory loss, syncope. PAST MEDICAL HISTORY Diagnosis Date - Acute non-ST segment elevation myocardial infarction (HCC) - Bronchitis, chronic ([facility]) 07/13/2012 - Coronary arteriosclerosis - Cough 07/13/2012 - Esophageal reflux - Essential hypertension, benign - Generalized osteoarthrosis, unspecified site - Hypogammaglobulinemia ([facility]) - Immunodeficiency disorder ([facility]) - Impaired fasting glucose - Known medical problems History of coronary artery bypass grafting three vessel bypass - Left ventricular systolic dysfunction mild - Obesity - Obstructive sleep apnea syndrome - Other and unspecified hyperlipidemia - Rhinitis, chronic 07/13/2012 - Type 2 diabetes mellitus (HCC) - Unspecified asthma(493.90) - Unspecified sinusitis (chronic) PAST SURGICAL HISTORY Procedure Laterality Date - CARDIAC CATH - CHOLECYSTECTOMY HX 90s gallbladder removed - CORONARY ARTERY BYPASS GRAFT 11/11/2015 - EYE SURGERY HX in [place]- eye ablation - F TOTAL ABDOMINAL HYSTERECTOMY - HYSTERECTOMY HX 1979 partial hysterectomy, still has ovaries - PAST SURGICAL HISTORY OF 10/2007 ptosis - PAST SURGICAL HISTORY OF 11/12/2015 CABG - SEPTOPLASTY 1984 nasal septum - STABISMUS SURG,ONE VERT MUSCLE 2011 ALLERGIES Albuterol; Beta Blockers [Beta-Blockers (Beta-Adrenergic Blocking Agts)]; Codeine; Doxycycline; Penicillins; Red Dye; Sulfa (Sulfonamide Antibiotics); Theophylline MEDICATIONS acetaminophen 325 mg-caffeine 40 mg-butalbital 50 mg (FIORICET) per tablet Take 1 tablet by mouth twice daily as needed. ezetimibe (ZETIA) 10 mg tablet Take 1 tablet by mouth once daily. nystatin (MYCOSTATIN) powder Apply 1 application to affected area four times daily as needed. ACCU-CHEK SOFTCLIX LANCETS lancets 1 Each once daily. ACCU-CHEK INNA PLUS TEST STRP test strip 1 Strip once daily. Dx: Insulin: no amiodarone (PACERONE) 200 mg tablet Take 0.5 tablets by mouth twice daily. levothyroxine (LEVOXYL) 25 mcg tablet Take 1 tablet by mouth once daily. Take on empty stomach. For Thyroid montelukast (SINGULAIR) 10 mg tablet Take 1 tablet by mouth once daily. potassium chloride 20 mEq TbER Take 1 tablet by mouth three times daily. furosemide (LASIX) 20 mg tablet Take 1 tablet by mouth once daily. carvedilol (COREG) 6.25 mg tablet Take 1 tablet by mouth twice daily. apixaban (ELIQUIS) 5 mg tab tab(s) Take 1 tablet by mouth twice daily. mupirocin (BACTROBAN) 2 % cream Apply to affected area three times daily. albuterol HFA (PROAIR HFA) 90 mcg/actuation inhaler Inhale 2 Puffs as instructed every 4 hours as needed. budesonide-formoterol (SYMBICORT) 160-4.5 mcg/actuation inhaler Inhale 2 Puffs as instructed twice daily. levalbuterol (XOPENEX) 0.63 mg/3 mL nebulizer solution acetaminophen (TYLENOL) 325 mg tablet 1-2 tablets Every 6 hours as needed Oral METRONIDAZOLE 0.75 % TOPICAL GEL apply twice daily- dispense 1 tube FAMILY HISTORY Problem Relation Age of Onset - Arthritis Mother - Heart Mother - anemia [OTHER] Mother - Heart Father - Diabetes Father - Stroke Father - Coronary Artery Disease Father - Cancer Maternal Grandfather kidney and stomach - Heart Sister - Heart Brother - COPD Sister - Heart Daughter - Hypertension Son Social History Substance Use Topics - Smoking status: Never Smoker - Smokeless tobacco: Never Used - Alcohol use Yes Comment: twice per month PHYSICAL EXAM There were no vitals taken for this visit. General Appearance: in no acute distress, alert, ill appearing Pysch: mood and affect broad and appropriate Skin: Skin color pale, texture, turgor normal for age; Head: normocephalic, atraumatic Eyes: sclera white, non-injected, conjunctival erythema mild Ears: external ears normal to inspection and palpation, canals clear, Right tympanic membrane normal, L TM: erythematous and + effusion Oropharynx: lips normal without lesions, tongue midline and normal Positive for mild oropharyngeal erythema Lungs: Lungs clear to auscultation. No wheezing, rhonchi, rales Heart: RRR without murmur, gallop, or rubs. No ectopy Bilateral Lower Extremities: No deformities, skin discoloration, clubbing or cyanosis. Good capillary refill. , Edema: Trace non-pitting edema bilaterally DTAP,TDAP,TD(1 - Tdap) due on 1963 COLORECTAL CANCER SCREENING,SEE MODIFIER due on 06/21/2017 MAMMOGRAM due on 08/23/2017 DIABETES SCREEN due on 07/26/2020 LIPID SCREEN due on 07/26/2022 BONE DENSITY Completed ADULT PREVNAR-13 Completed INFLUENZA Completed PNEUMOVAX AGE 65 AND OVER WITH 5YR LOOKBACK Completed ASSESSMENT/PLAN: 1. Other acute sinusitis, recurrence not specified - ICD9: 461.8, ICD10: J01.80 - Will begin treatment with Levaquin d/t patient's list of allergies - The patient should also be given OTC decongestants prn and warm salt water gargles, throat lozenges and/or OTC throat spray as needed for the first 5-7 days of treatment. - Supportive care with plenty of fluids, rest, and analgesia prn. - Follow up in 7 days if symptoms persist or worsen. - LEVOFLOXACIN 500 MG TABLET - FLUTICASONE 50 MCG/ACTUATION NASAL SPRAY,SUSPENSION Discussed previously placed orders for Bone Scan and Mammogram. Patient indicates she will call to schedule when she is feeling better. Prescription instructions reviewed with patient as applicable. Potential red flag symptoms discussed with the patient. Reviewed appropriate action plan to take if red flag symptoms occur. Patient agreeable to treatment plan. Ankit Mcghee APRN.AIDA CNOV Observed: 01/09/2018 Status: COMPLETED Source: [place] 8:00 AM [facility] REPOSITORY Office Visit (INTMWS) ANTIONETTE WYNNE ([id number]) 1945 F Date Time Provider Department 01/09/18 8:00 AM ANKIT MCGHEE (AIDA) [facility] During your visit today, we recorded the following information about you: Temperature Pulse Respiration Blood pressure 98.2 degrees 75/minute 16/minute 138/78 Weight 97.1 kg Ankit Mcghee APRN.CNP 01/09/2018 8:56 AM Signed CC: Patient presents with: Recheck: Hospital follow up, Pt complains of sinus pressure headaches HPI Antionette Wynne is a 72 year old female who presents today for [facility] admission follow up.Patient presented to the ER with an Pulse ox of 64% and she was nearly unresponsive. Patient was admitted on 12/16/17 for acute respiratory distress requiring intubation secondary to RSV B infection and MSSA pneumonia. Patient was admitted to ICU initially. Patient was put on IV Levaquin, IV Solu-Medrol and DuoNeb every 4 hours. Patient was eventually extubated and transferred to in patient rehab for strengthening. Patient was discharged on 01/01/18 home with her and outpatient PT. Today she has complaints of ongoing fatigue and headaches since she came home from the hospital. Patient states she also feels foggy with the headaches. Headaches occur once or twice daily. Pain is located in the frontal and maxillary sinuses. It feels like someone is pushing on her face. Associated symptoms include chills, sore throat, rhinorrhea, ear pain L>R, productive cough with yellowish-green sputum. Taking migraine medication and motrin for headache relief. Denies fevers, SOB, wheezing, abdominal pain, nausea, vomiting, diarrhea or urinary symptoms. Does note some vaginal itching since being discharged. Patient has PT today after this appointment. REVIEW OF SYSTEMS General: no fevers, no night sweats, no recurrent infections, no change in appetite and no significant changes in weight HEENT: no changes in hearing, no visual changes, no nose bleeds, See HPI Neck: no lumps, no pain and no swelling Respiratory: no wheezing, no shortness of breath, no hemoptysis Cardiovascular: no chest pain, no chest pressure, no palpitations and no swelling GI: No nausea, vomiting, or diarrhea Hematologic/Lymph: Negative for prolonged bleeding, bruising easily or swollen nodes Neurologic: No headache, weakness, numbness, tingling, neck stiffness, tremor, vertigo, dizziness, memory loss, syncope. PAST MEDICAL HISTORY Diagnosis Date - Acute non-ST segment elevation myocardial infarction (HCC) - Bronchitis, chronic (HCC) 07/13/2012 - Coronary arteriosclerosis - Cough 07/13/2012 - Esophageal reflux - Essential hypertension, benign - Generalized osteoarthrosis, unspecified site - Hypogammaglobulinemia (HCC) - Immunodeficiency disorder (HCC) - Impaired fasting glucose - Known medical problems History of coronary artery bypass grafting three vessel bypass - Left ventricular systolic dysfunction mild - Obesity - Obstructive sleep apnea syndrome - Other and unspecified hyperlipidemia - Rhinitis, chronic 07/13/2012 - Type 2 diabetes mellitus (HCC) - Unspecified asthma(493.90) - Unspecified sinusitis (chronic) PAST SURGICAL HISTORY Procedure Laterality Date - CARDIAC CATH - CHOLECYSTECTOMY HX 90s gallbladder removed - CORONARY ARTERY BYPASS GRAFT 11/11/2015 - EYE SURGERY HX in [place]- eye ablation - F TOTAL ABDOMINAL HYSTERECTOMY - HYSTERECTOMY HX 1979 partial hysterectomy, still has ovaries - PAST SURGICAL HISTORY OF 10/2007 ptosis - PAST SURGICAL HISTORY OF 11/12/2015 CABG - SEPTOPLASTY 1983 nasal septum - STABISMUS SURG,ONE VERT MUSCLE 2011 ALLERGIES Albuterol; Beta Blockers [Beta-Blockers (Beta-Adrenergic Blocking Agts)]; Codeine; Doxycycline; Penicillins; Red Dye; Sulfa (Sulfonamide Antibiotics); Theophylline MEDICATIONS acetaminophen 325 mg-caffeine 40 mg-butalbital 50 mg (FIORICET) per tablet Take 1 tablet by mouth twice daily as needed. ezetimibe (ZETIA) 10 mg tablet Take 1 tablet by mouth once daily. nystatin (MYCOSTATIN) powder Apply 1 application to affected area four times daily as needed. ACCU-CHEK SOFTCLIX LANCETS lancets 1 Each once daily. ACCU-CHEK INNA PLUS TEST STRP test strip 1 Strip once daily. Dx: Insulin: no amiodarone (PACERONE) 200 mg tablet Take 0.5 tablets by mouth twice daily. levothyroxine (LEVOXYL) 25 mcg tablet Take 1 tablet by mouth once daily. Take on empty stomach. For Thyroid montelukast (SINGULAIR) 10 mg tablet Take 1 tablet by mouth once daily. potassium chloride 20 mEq TbER Take 1 tablet by mouth three times daily. furosemide (LASIX) 20 mg tablet Take 1 tablet by mouth once daily. carvedilol (COREG) 6.25 mg tablet Take 1 tablet by mouth twice daily. apixaban (ELIQUIS) 5 mg tab tab(s) Take 1 tablet by mouth twice daily. mupirocin (BACTROBAN) 2 % cream Apply to affected area three times daily. albuterol HFA (PROAIR HFA) 90 mcg/actuation inhaler Inhale 2 Puffs as instructed every 4 hours as needed. budesonide-formoterol (SYMBICORT) 160-4.5 mcg/actuation inhaler Inhale 2 Puffs as instructed twice daily. levalbuterol (XOPENEX) 0.63 mg/3 mL nebulizer solution acetaminophen (TYLENOL) 325 mg tablet 1-2 tablets Every 6 hours as needed Oral METRONIDAZOLE 0.75 % TOPICAL GEL apply twice daily- dispense 1 tube FAMILY HISTORY Problem Relation Age of Onset - Arthritis Mother - Heart Mother - anemia [OTHER] Mother - Heart Father - Diabetes Father - Stroke Father - Coronary Artery Disease Father - Cancer Maternal Grandfather kidney and stomach - Heart Sister - Heart Brother - COPD Sister - Heart Daughter - Hypertension Son Social History Substance Use Topics - Smoking status: Never Smoker - Smokeless tobacco: Never Used - Alcohol use Yes Comment: twice per month PHYSICAL EXAM There were no vitals taken for this visit. General Appearance: in no acute distress, alert, ill appearing Pysch: mood and affect broad and appropriate Skin: Skin color pale, texture, turgor normal for age; Head: normocephalic, atraumatic Eyes: sclera white, non-injected, conjunctival erythema mild Ears: external ears normal to inspection and palpation, canals clear, Right tympanic membrane normal, L TM: erythematous and + effusion Oropharynx: lips normal without lesions, tongue midline and normal Positive for mild oropharyngeal erythema Lungs: Lungs clear to auscultation. No wheezing, rhonchi, rales Heart: RRR without murmur, gallop, or rubs. No ectopy Bilateral Lower Extremities: No deformities, skin discoloration, clubbing or cyanosis. Good capillary refill. , Edema: Trace non-pitting edema bilaterally DTAP,TDAP,TD(1 - Tdap) due on 1963 COLORECTAL CANCER SCREENING,SEE MODIFIER due on 06/21/2017 MAMMOGRAM due on 08/23/2017 DIABETES SCREEN due on 07/26/2020 LIPID SCREEN due on 07/26/2022 BONE DENSITY Completed ADULT PREVNAR-13 Completed INFLUENZA Completed PNEUMOVAX AGE 65 AND OVER WITH 5YR LOOKBACK Completed ASSESSMENT/PLAN: 1. Other acute sinusitis, recurrence not specified - ICD9: 461.8, ICD10: J01.80 - Will begin treatment with Levaquin d/t patient's list of allergies - The patient should also be given OTC decongestants prn and warm salt water gargles, throat lozenges and/or OTC throat spray as needed for the first 5-7 days of treatment. - Supportive care with plenty of fluids, rest, and analgesia prn. - Follow up in 7 days if symptoms persist or worsen. - LEVOFLOXACIN 500 MG TABLET - FLUTICASONE 50 MCG/ACTUATION NASAL SPRAY,SUSPENSION Discussed previously placed orders for Bone Scan and Mammogram. Patient indicates she will call to schedule when she is feeling better. Prescription instructions reviewed with patient as applicable. Potential red flag symptoms discussed with the patient. Reviewed appropriate action plan to take if red flag symptoms occur. Patient agreeable to treatment plan. Ankit Mcghee APRN.CYCLE DIRECTOR Referring Provider: SELF [[id number]] Allergies As of Date: 01/09/2018 Noted Allergy Reaction ALBUTEROL 11/27/2015 14 - Other: See Comments Comments: Tachycardia. HEART RACES, SHORTNESS OF BREATH (PT USES XOPENEX INHALER AT HOME) BETA BLOCKERS (BETA-BLOCKERS (BET*11/16/2007 14 - Other: See Comments Comments: Wheezing. Dyspnea CODEINE 11/16/2007 11 - Vomiting 14 - Other: See Comments Comments: Nausea DOXYCYCLINE 11/19/2008 4 - Hives PENICILLINS 11/16/2007 2 - Rash 4 - Hives RED DYE 03/03/2015 5 - Intolerance Comments: headaches SULFA (SULFONAMIDE ANTIBIOTICS) 11/16/2007 2 - Rash 4 - Hives THEOPHYLLINE 11/16/2007 2 - Rash Date Reviewed: 11/09/2017 Reviewed by: Cristina Quiroga LPN - Fully Assessed Reason for Visit: Recheck [92] Cmt: Hospital follow up, Pt complains of sinus pressure headaches Primary Visit Diagnosis:Other acute sinusitis, recurrence not specified [J01.80] Order(s):levoFLOXacin (LEVAQUIN) 500 mg tabletTake 1 tablet by mouth once daily for 10 days.Disp: 10 tabletRfl: 0 fluticasone (FLONASE) 50 mcg/actuation nasal sprayUse 2 Sprays in each nostril once daily. Rinse mouth after use.Disp: 1 BottleRfl: 11 fluconazole (DIFLUCAN) 150 mg tabletTake 1 tablet by mouth one time only for 1 dose. Repeat in 3 days as needed.Disp: 1 tabletRfl: 0 Prescriptions as of 01/09/2018 Sig: [id number]* Take 1 tablet by mouth twice * EZETIMIBE 10 MG TABLET Take 1 tablet by mouth once d* NYSTATIN 100,000 UNIT/GRAM TO* Apply 1 application to affect* AMIODARONE 200 MG TABLET Take 0.5 tablets by mouth twi* LEVOTHYROXINE 25 MCG TABLET Take 1 tablet by mouth once d* MONTELUKAST 10 MG TABLET Take 1 tablet by mouth once d* POTASSIUM CHLORIDE ER 20 MEQ * Take 1 tablet by mouth three * FUROSEMIDE 20 MG TABLET Take 1 tablet by mouth once d* CARVEDILOL 6.25 MG TABLET Take 1 tablet by mouth twice * APIXABAN 5 MG TABLET Take 1 tablet by mouth twice * ALBUTEROL SULFATE HFA 90 MCG/* Inhale 2 Puffs as instructed * BUDESONIDE-FORMOTEROL HFA 160* Inhale 2 Puffs as instructed * LEVALBUTEROL 0.63 MG/3 ML TANNA* LEVOFLOXACIN 500 MG TABLET Take 1 tablet by mouth once d* FLUTICASONE 50 MCG/ACTUATION * Use 2 Sprays in each nostril * FLUCONAZOLE 150 MG TABLET Take 1 tablet by mouth one ti* ACCU-CHEK SOFTCLIX LANCETS 1 Each once daily. ACCU-CHEK INNA PLUS TEST STR* 1 Strip once daily. Dx: Insu* MUPIROCIN 2 % TOPICAL CREAM Apply to affected area three* ACETAMINOPHEN 325 MG TABLET 1-2 tablets Every 6 hours as * METRONIDAZOLE 0.75 % TOPICAL * apply twice daily- dispense * Problem List As Of Date 01/09/2018 Noted Resolved Hyperlipidemia [E78.5] INVALID FOR*08/04/2015 More... Impaired fasting glucose [R73.01] INVALID FOR*05/05/2015 Hypertension [I10] INVALID FOR* More... Migraine without aura, not intractable, with st*INVALID FOR* GERD (gastroesophageal reflux disease) [K21.9] INVALID FOR* More... Bronchitis, chronic [J42] INVALID FOR* Cough [R05] INVALID FOR* Rhinitis, chronic [J31.0] INVALID FOR* Prediabetes [R73.03] INVALID FOR* More... Hypogammaglobulinemia (HCC) [D80.1] INVALID FOR* More... Mixed hyperlipidemia [E78.2] INVALID FOR* More... Atherosclerosis of [place] coronary artery of na*INVALID FOR* More... S/P coronary artery bypass graft x 2 [Z95.1] INVALID FOR* More... Paroxysmal atrial fibrillation (HCC) [I48.0] INVALID FOR* More... Ptosis of eyelid, right [H02.401] INVALID FOR*09/09/2017 Prescriptions ordered this encounter Disp Refills Start End LEVOFLOXACIN 500 MG TABLET 10 t* 0 01/09/2018 01/19/2018 Route: ORAL Sig: Take 1 tablet by mouth once daily for 10 days. FLUTICASONE 50 MCG/ACTUATION NASAL S* 1 Tray* 11 01/09/2018 Route: EACH NOSTRIL Sig: Use 2 Sprays in each nostril once daily. Rinse mouth after use. FLUCONAZOLE 150 MG TABLET 1 ta* 0 01/09/2018 01/09/2018 Route: ORAL Sig: Take 1 tablet by mouth one time only for 1 dose. Repeat in 3 days as needed. Encounter Status:Closed by ANKIT MCGHEE CNP on 01/09/18 MISCELLANEOUS LAB Collected: 01/07/2018 Status: F Source: [place] PROCEDURE 9:07 AM [facility] REPOSITORY Order Comment: Comments: [id number] ANTIBODIES TO PNEUMOCCUS SEROTPYES 23 Test(s) Ordered: [id number] ANTIBODIES TO PNEUMOCCUS SEROTPYES 23 TYPE CODE TESTS RESULT OUT OF RANGE REFERENCE UNITS LAB L801.1541 Normal [facility] LAB TEST Result Comment: TEST RESULT FLAG UNITS REF INTERVAL Pneumococcal Ab (23 Serotype) Pneumo Ab Type 1* 0.2 Low ug/mL >1.3 Pneumo Ab Type 3* 0.3 Low ug/mL >1.3 Pneumo Ab Type 4* 1.3 Low ug/mL >1.3 Pneumo Ab Type 8* 0.1 Low ug/mL >1.3 Pneumo Ab Type 9 (9N)* 0.7 Low ug/mL >1.3 Pneumo Ab Type 12 (12F)* <0.1 Low ug/mL >1.3 Pneumo Ab Type 14* 1.5 ug/mL >1.3 Pneumo Ab Type 17 (17F)* 3.4 ug/mL >1.3 Pneumo Ab Type 19 (19F)* 1.0 Low ug/mL >1.3 Pneumo Ab Type 2* 0.3 Low ug/mL >1.3 Pneumo Ab Type 20* 2.2 ug/mL >1.3 Pneumo Ab Type 22 (22F)* <0.1 Low ug/mL >1.3 Pneumo Ab Type 23 (23F)* 2.4 ug/mL >1.3 Pneumo Ab Type 26 (6B)* <0.1 Low ug/mL >1.3 Pneumo Ab Type 34 (10A)* 0.4 Low ug/mL >1.3 Pneumo Ab Type 43 (11A)* 1.3 Low ug/mL >1.3 Pneumo Ab Type 5* 0.4 Low ug/mL >1.3 Pneumo Ab Type 51 (7F)* <0.1 Low ug/mL >1.3 Pneumo Ab Type 54 (15B)* 8.8 ug/mL >1.3 Pneumo Ab Type 56 (18C)* 4.8 ug/mL >1.3 Pneumo Ab Type 57 (19A)* 3.9 ug/mL >1.3 Pneumo Ab Type 68 (9V)* 2.2 ug/mL >1.3 Pneumo Ab Type 70 (33F)* 0.1 Low ug/mL >1.3 *This test was developed and its performance characteristics determined by [facility]. It has not been cleared or approved by the U.S. Food and Drug Administration. TESTING PERFORMED AT [facility]. ORIGINAL REPORT ON FILE IN LAB CONTAINS ADDITIONAL TEST SITE INFORMATION. Performed By: #### L801.1541 #### [facility] [address] [place], [place], [id number] BEDSIDE GLUCOSE Collected: 01/01/2018 Status: F Source: [place] 6:31 AM [facility] REPOSITORY TYPE CODE TESTS RESULT OUT OF REFERENCE UNITS RANGE LAB L501.080 70-110 mg/dL High BEDSIDE GLU 137 Result Comment: MANAGEMENT OF PATIENT CARE PER NURSING PROTOCOL Performed By: #### L501.080 #### [facility] Point of Care [address] [place] [address] BEDSIDE GLUCOSE Collected: 12/31/2017 Status: F Source: [place] 9:06 PM [facility] REPOSITORY TYPE CODE TESTS RESULT OUT OF REFERENCE UNITS RANGE LAB L501.080 70-110 mg/dL High BEDSIDE GLU 219 Result Comment: MANAGEMENT OF PATIENT CARE PER NURSING PROTOCOL Performed By: #### L501.080 #### [facility] Point of Care [address] [place] [address] BEDSIDE GLUCOSE Collected: 12/31/2017 Status: F Source: [place] 4:39 PM [facility] REPOSITORY TYPE CODE TESTS RESULT OUT OF REFERENCE UNITS RANGE LAB L501.080 70-110 mg/dL High BEDSIDE GLU 292 Result Comment: MANAGEMENT OF PATIENT CARE PER NURSING PROTOCOL Performed By: #### L501.080 #### [facility] Point of Care [address] [place] [address] BEDSIDE GLUCOSE Collected: 12/31/2017 Status: F Source: [place] 10:56 AM [facility] REPOSITORY TYPE CODE TESTS RESULT OUT OF REFERENCE UNITS RANGE LAB L501.080 70-110 mg/dL High BEDSIDE GLU 161 Result Comment: Dr Sánchez Followed MANAGEMENT OF PATIENT CARE PER NURSING PROTOCOL Performed By: #### L501.080 #### [facility] Point of Care [address] [place], [place] [id number] BEDSIDE GLUCOSE Collected: 12/31/2017 Status: F Source: [place] 6:26 AM [facility] REPOSITORY TYPE CODE TESTS RESULT OUT OF RANGE REFERENCE UNITS LAB L501.080 70-110 mg/dL Normal BEDSIDE GLU 100 Result Comment: MANAGEMENT OF PATIENT CARE PER NURSING PROTOCOL Performed By: #### L501.080 #### [facility] Point of Care [address] [place], [place] [id number] BEDSIDE GLUCOSE Collected: 12/30/2017 Status: F Source: [place] 9:00 PM [facility] REPOSITORY TYPE CODE TESTS RESULT OUT OF REFERENCE UNITS RANGE LAB L501.080 70-110 mg/dL High BEDSIDE GLU 258 Result Comment: MANAGEMENT OF PATIENT CARE PER NURSING PROTOCOL Performed By: #### L501.080 #### [facility] Point of Care [address] [place] [address] BEDSIDE GLUCOSE Collected: 12/30/2017 Status: F Source: [place] 4:41 PM [facility] REPOSITORY TYPE CODE TESTS RESULT OUT OF REFERENCE UNITS RANGE LAB L501.080 70-110 mg/dL High BEDSIDE GLU 289 Result Comment: MANAGEMENT OF PATIENT CARE PER NURSING PROTOCOL Performed By: #### L501.080 #### [facility] Point of Care [address] [place] [address] BEDSIDE GLUCOSE Collected: 12/30/2017 Status: F Source: [place] 11:35 AM [facility] REPOSITORY TYPE CODE TESTS RESULT OUT OF REFERENCE UNITS RANGE LAB L501.080 70-110 mg/dL High BEDSIDE GLU 157 Result Comment: Dr Sánchez Followed MANAGEMENT OF PATIENT CARE PER NURSING PROTOCOL Performed By: #### L501.080 #### [facility] Point of Care [address] [place] [address] BEDSIDE GLUCOSE Collected: 12/30/2017 Status: F Source: [place] 6:43 AM [facility] REPOSITORY TYPE CODE TESTS RESULT OUT OF REFERENCE UNITS RANGE LAB L501.080 70-110 mg/dL High BEDSIDE GLU 122 Result Comment: MANAGEMENT OF PATIENT CARE PER NURSING PROTOCOL Performed By: #### L501.080 #### [facility] Point of Care [address] [place], [place] [address] CBC W/DIFF, AUTOMATED Collected: 12/30/2017 Status: F Source: [place] 5:55 AM [facility] REPOSITORY TYPE CODE TESTS RESULT OUT OF RANGE REFERENCE UNITS LAB L100.1000 4.4-11.0 K/mm3 Normal WBC 10.8 LAB L100.1200 4.2-5.4 M/mm3 Normal RBC 4.87 LAB L100.1300 12.0-15.0 g/dl Normal HGB 14.3 LAB L100.1400 37-47 % Normal HCT 42.6 LAB L100.1500 81-99 fL Normal MCV 87.5 LAB L100.1600 27.0-32.0 pg Normal MCH 29.4 LAB L100.1700 32-36 g/gl Normal MCHC 33.6 LAB L100.1810 11.6-14.6 % Normal RDW CV 13.4 LAB L100.1820 35.1-43.9 fl Normal RDW SD 42.1 LAB L100.1900 150-450 K/mm3 Normal PLT 247 LAB L100.2000 6.2-12.0 fl Normal MPV 10.5 LAB L100.2100 47-70 % Normal NEUT% 63.7 LAB L100.2200 19-41 % Normal LY% 23.4 LAB L100.2300 0-10 % High MONO% 11.4 LAB L100.2400 0-5 % Normal EO% 0.5 LAB L100.2500 0-1 % Normal BASO% 0.1 LAB L100.2550 0.0-0.9 % Normal IM GRAN % 0.900 Result Comment: IG% - Immature Granulocytes (promyelocytes, myelocytes and metamyelocytes) > 1% indicates that a LEFT SHIFT is Present. LAB L100.2620 2.0-7.7 X10 3/uL Normal Absolute Neut 6.9 LAB L100.2720 0.83-4.51 X10 3/ul Normal Absolute Lymph 2.53 Performed By: #### L100.0100 #### [facility] [address] [place], [place], [address] BASIC METABOLIC Collected: 12/30/2017 Status: F Source: YEHUDA PROFILE (BMP) 5:55 AM [facility] REPOSITORY TYPE CODE TESTS RESULT OUT OF RANGE REFERENCE UNITS LAB L501.0100 74-106 mg/dL High GLU 139 Result Comment: Fasting Glucose result greater than or equal to 126 mg/dL suggests DIABETES MELLITUS per A.D.A. criteria. Please note revised GLUCOSE reference range effective 2017. LAB L501.1000 7-18 mg/dL High BUN 20 LAB L501.1100 0.55-1.02 mg/dL Normal CREAT,SERUM 0.81 Result Comment: The validity of the calculated GFR AND GFRAA in patients over 70 years has not been determined. Clinical correlation is essential. LAB L501.1110 >60 mL/min Normal EST GFR 74 Result Comment: Non- GFR Calc LAB L501.1115 >60 mL/min Normal EST GFR - AA 89 Result Comment: GFR Calc LAB L501.1255 ml/min Normal Estimated CRCL 46.68 LAB L501.1300 10-20 RATIO High BUN/CRE 24.7 LAB L501.2200 8.5-10 mg/dL Low .1 CA 8.2 LAB L501.5300 136-14 mmol/L Normal 5 NA 140 LAB L501.5600 3.5-5. mmol/L Normal 1 K 3.8 LAB L501.5900 98-107 mmol/L Normal CL 107 LAB L501.6100 21.0-3 mmol/L Normal 2.0 CO2 26.0 LAB L501.6200 5-15 Normal GAP 7 Performed By: #### L500.2500 #### [facility] [address] [place], [place], [address] BEDSIDE GLUCOSE Collected: 12/29/2017 Status: F Source: YEHUDA 8:38 PM [facility] REPOSITORY TYPE CODE TESTS RESULT OUT OF REFERENCE UNITS RANGE LAB L501.080 70-110 mg/dL High BEDSIDE GLU 135 Result Comment: MANAGEMENT OF PATIENT CARE PER NURSING PROTOCOL Performed By: #### L501.080 #### [facility] Point of Care [address] [place], [place] [address] BEDSIDE GLUCOSE Collected: 12/29/2017 Status: F Source: YEHUDA 5:00 PM [facility] REPOSITORY TYPE CODE TESTS RESULT OUT OF REFERENCE UNITS RANGE LAB L501.080 70-110 mg/dL High BEDSIDE GLU 230 Result Comment: MANAGEMENT OF PATIENT CARE PER NURSING PROTOCOL Performed By: #### L501.080 #### [facility] Point of Care [address] [place] [address] BEDSIDE GLUCOSE Collected: 12/29/2017 Status: F Source: YEHUDA 10:56 AM [facility] REPOSITORY TYPE CODE TESTS RESULT OUT OF REFERENCE UNITS RANGE LAB L501.080 70-110 mg/dL High BEDSIDE GLU 153 Result Comment: MANAGEMENT OF PATIENT CARE PER NURSING PROTOCOL Performed By: #### L501.080 #### [facility] Point of Care [address] [place] [address] BEDSIDE GLUCOSE Collected: 12/29/2017 Status: F Source: YEHUDA 6:33 AM [facility] REPOSITORY TYPE CODE TESTS RESULT OUT OF RANGE REFERENCE UNITS LAB L501.080 70-110 mg/dL Normal BEDSIDE GLU 108 Result Comment: MANAGEMENT OF PATIENT CARE PER NURSING PROTOCOL Performed By: #### L501.080 #### [facility] Point of Care [address] [place] [address] BEDSIDE GLUCOSE Collected: 12/28/2017 Status: F Source: YEHUDA 8:38 PM [facility] REPOSITORY TYPE CODE TESTS RESULT OUT OF REFERENCE UNITS RANGE LAB L501.080 70-110 mg/dL High BEDSIDE GLU 251 Result Comment: MANAGEMENT OF PATIENT CARE PER NURSING PROTOCOL Performed By: #### L501.080 #### [facility] Point of Care [address] [place] [address] DISCHARGE SUMMARY Observed: 12/28/2017 Status: F Source: YEHUDA 8:13 PM [facility] REPOSITORY [facility] Medical Records Department [address] [place] [address] Discharge Summary 12/28/172010 MR#: [id number] Acct: [id number] Name: ANTIONETTE WYNNE Rep #: [id number] : 1945 72 From: Haider Jones MD PCP: Mary Chang MD Status: ADM IN [facility] Discharge Date and Diagnosis - Problem List Patient Problems: Active and Suspected Problems (Last Updated 12/16/17 @ 22:38 by Melony Gonzalez MD) Shortness of breath (Acute) Acute respiratory failure (Acute) Severe sepsis (Acute) MSSA (methicillin susceptible Staphylococcus aureus) pneumonia (Acute) Date of Admission: 12/22/17 Date of Discharge: 01/01/18 - Primary Discharge Diagnosis Active and Suspected Problems (Last Updated 12/16/17 @ 22:38 by Melony Gonzalez MD) Shortness of breath (Acute) Acute respiratory failure (Acute) Severe sepsis (Acute) MSSA (methicillin susceptible Staphylococcus aureus) pneumonia (Acute) - Secondary Discharge Diagnosis Chronic Problems (Last Updated 12/16/17 @ 22:38 by Melony Gonzalez MD) Hypokalemia (Chronic) 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 heart disease (ASHD) (Chronic) Asthma (Chronic) Restrictive lung disease (Chronic) Paroxysmal atrial fibrillation (Chronic) Nonrheumatic tricuspid valve regurgitation (Chronic) Dilated cardiomyopathy (Chronic) 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) HTN (hypertension) (Chronic) Diabetes mellitus (Chronic) HLD (hyperlipidemia) (Chronic) DM type 2 (diabetes mellitus, type 2) (Chronic) Hypogammaglobulinemia (Chronic) Morbid obesity (Chronic) Migraines (Chronic) BARTOLO (obstructive sleep apnea) (Chronic) CAD (coronary artery disease) (Chronic) Hospital Course and Treatment Imaging Results: 12/28/17 13:30 Diet: Calorie Controlled Is pt able to select menu?: Yes Diet Comments: low sodium How many daily calories?: 1800 calorie Labs (Last 48 Hours) POC Glucose 174 H 107 158 H POC Glucose 238 H 221 H 96 POC Glucose 238 H 203 H Operations: None Procedures: None Summary of Care Provided: The patient is a 72 year old Female with below past medical history hospitalized for acute respiratory distress requiring intubation secondary to RSV B infection, MSSA pneumonia, complicated by atrial fibrillation, admitted to TCU with debility, here for rehabilitation, strengthening, prior to discharge home with spouse. [] Discharge home with spouse, and outpatient physical therapy. Discharge Diet: No Restrictions Discharge Activity: Return to Normal Activity, May Shower, Use Walker Call your doctor if you observe: Fever of 101 or Higher, Inability to urinate, Inability to have a bowel movement, Shortness of breath, Chest pain, Uncontrolled pain Home Medications: Medications to take at Discharge Budesonide/Formoterol 160/4.5 [Symbicort 160/4.5 Mcg Inhaler (SP)] 2 puff INHALATION BID PRN 11/09/15 Montelukast [Singulair] 10 mg PO DAILY 11/09/15 Acetaminophen/Butalbital/Caffe [Fioricet] 1 tab PO BID PRN PRN 03/26/17 Ezetimibe [Zetia] 10 mg PO DAILY 03/26/17 Potassium Chloride [K-Dur] 20 meq PO TID 03/26/17 amiodarone 200 mg tablet 100 mg PO DAILY tab 08/22/17 benzonatate 100 mg capsule 100 mg PO Q6H 10/19/17 levalbuterol 0.63 mg/3 mL solution for nebulization 0.63 mg INHALATION Q4H PRN #120 vial 10/28/17 benzonatate 100 mg capsule 100 mg PO TID PRN #30 cap 12/15/17 Albuterol IH (ProAir) [Proair Hfa] 2 puff INHALATION Q4H PRN PRN 12/17/17 Apixaban [Eliquis] 5 mg PO BID 12/22/17 Carvedilol [Coreg (Beta Sara)] 6.25 mg PO BID 12/22/17 Furosemide [Lasix] 40 mg PO DAILY 12/22/17 Ipratropium/Albuterol Sulfate [Duoneb] 3 ml INHALATION Q4HWA.RT 12/22/17 Acetaminophen [Tylenol] 1,000 mg PO Q8H PRN PRN tablet 12/28/17 Famotidine [Pepcid] 20 mg PO BID #60 tab 12/28/17 Insulin Aspart [Novolog Flexpen] 7 units SC TIDAC #1 flexpen 12/28/17 Insulin Detemir [Levemir FlexPen] 10 units SC 1100,2200 #1 insuln.pen 12/28/17 Levothyroxine [Synthroid] 25 mcg PO DAILY #30 tab 12/28/17 Nystatin 500,000 unit PO 4X/DAY #100 ml 12/28/17 Prednisone See Taper PO UD #3 tab 12/28/17 Following Prescrptions Were Given to Patient: Insulin Aspart [Novolog Flexpen] 7 units SC TIDAC #1 flexpen Insulin Detemir [Levemir FlexPen] 10 units SC 1100,2200 #1 insuln.pen Levothyroxine [Synthroid] 25 mcg PO DAILY #30 tab Prednisone See Taper PO UD #3 tab Famotidine [Pepcid] 20 mg PO BID #60 tab Nystatin 500,000 unit PO 4X/DAY #100 ml Primary Care Physician: Mary Chang MD [Primary Care Provider] - Please follow up with your Primary Care Physician in: 1 week. Please Follow Up With: Mary Chang MD When: [phone] Disposition: Home Minutes spent on discharge:: 30 Patient Condition:: Stable Medical Necessity - Tobacco Use Smoking Status: Never smoker Tobacco Use: Non-smoker Meaningful Use Info Meaningful Use Diagnoses (Choose all that apply): None applicable 12/28/172012 <Electronically signed by Haider Jones MD> Date Haider Jones MD Cosigner Signature (if applicable): Date CC: Mary Chang MD; Haider Jones MD Signed DISCHARGE INSTRUCTION Observed: 12/28/2017 Status: F Source: TRIMBLE 8:11 PM [facility] REPOSITORY [facility] Medical Records Department [address] [place] [address] Instructions for Home/Discharge Instructions 12/28/172008 MR#: [id number] Acct: [id number] Name: ANTIONETTE WYNNE Rep #: [id number] : 1945 72 From: Haider Jones MD PCP: Mary Chang MD Status: ADM IN - Discharge Diagnoses Current Active Problems: Current Active and Chronic Problems (Last Updated 12/16/17 @ 22:38 by Melony Gonzalez MD) Shortness of breath (Acute) Acute respiratory failure (Acute) Severe sepsis (Acute) MSSA (methicillin susceptible Staphylococcus aureus) pneumonia (Acute) Hypokalemia (Chronic) You will use the following diet at home:: No restrictions, Regular Your food should be the consistency of: Regular Your liquids should be the consistency of: Regular/Thin Discharge Activity: Return to Normal Activity, May Shower, Use Walker Call your doctor if you observe: Fever of 101 or Higher, Inability to urinate, Inability to have a bowel movement, Shortness of breath, Chest pain, Uncontrolled pain Allergies/Adverse Reactions: Allergies Beta-Blockers (Beta-Adrenergic Bloc Allergy (Verified 12/16/17 20:27) Shortness of breath doxycycline Allergy (Verified 12/16/17 20:27) Hives Penicillins Allergy (Verified 12/16/17 20:27) Rash red dye Allergy (Verified 12/16/17 20:27) Unknown Sulfa (Sulfonamide Antibiotics) Allergy (Verified 12/16/17 20:27) Rash theophylline Allergy (Verified 12/16/17 20:27) Rash codeine Adverse Reaction (Verified 12/16/17 20:27) Nausea Medications to take at Discharge Budesonide/Formoterol 160/4.5 [Symbicort 160/4.5 Mcg Inhaler (SP)] 2 puff INHALATION BID PRN 11/09/15 Montelukast [Singulair] 10 mg PO DAILY 11/09/15 Acetaminophen/Butalbital/Caffe [Fioricet] 1 tab PO BID PRN PRN 03/26/17 Ezetimibe [Zetia] 10 mg PO DAILY 03/26/17 Potassium Chloride [K-Dur] 20 meq PO TID 03/26/17 amiodarone 200 mg tablet 100 mg PO DAILY tab 08/22/17 benzonatate 100 mg capsule 100 mg PO Q6H 10/19/17 levalbuterol 0.63 mg/3 mL solution for nebulization 0.63 mg INHALATION Q4H PRN #120 vial 10/28/17 benzonatate 100 mg capsule 100 mg PO TID PRN #30 cap 12/15/17 Albuterol IH (ProAir) [Proair Hfa] 2 puff INHALATION Q4H PRN PRN 12/17/17 Apixaban [Eliquis] 5 mg PO BID 12/22/17 Carvedilol [Coreg (Beta Sara)] 6.25 mg PO BID 12/22/17 Furosemide [Lasix] 40 mg PO DAILY 12/22/17 Ipratropium/Albuterol Sulfate [Duoneb] 3 ml INHALATION Q4HWA.RT 12/22/17 Acetaminophen [Tylenol] 1,000 mg PO Q8H PRN PRN tablet 12/28/17 Famotidine [Pepcid] 20 mg PO BID #60 tab 12/28/17 Insulin Aspart [Novolog Flexpen] 7 units SC TIDAC #1 flexpen 12/28/17 Insulin Detemir [Levemir FlexPen] 10 units SC 1100,2200 #1 insuln.pen 12/28/17 Levothyroxine [Synthroid] 25 mcg PO DAILY #30 tab 12/28/17 Nystatin 500,000 unit PO 4X/DAY #100 ml 12/28/17 Prednisone See Taper PO UD #3 tab 12/28/17 The following prescriptions were given: Insulin Aspart [Novolog Flexpen] 7 units SC TIDAC #1 flexpen Insulin Detemir [Levemir FlexPen] 10 units SC 1100,2200 #1 insuln.pen Levothyroxine [Synthroid] 25 mcg PO DAILY #30 tab Prednisone See Taper PO UD #3 tab Famotidine [Pepcid] 20 mg PO BID #60 tab Nystatin 500,000 unit PO 4X/DAY #100 ml Primary Care Physician: Mary Chang MD [Primary Care Provider] - Please follow up with your Primary Care Physician in: 1 week. Please Follow Up With: Mary Chang MD When: [phone] Proposed Discharge Date: 01/01/18 12/28/172010 <Electronically signed by Haider Jones MD> Date Haider Jones MD CC: Mary Chang MD BEDSIDE GLUCOSE Collected: 12/28/2017 Status: F Source: YEHUDA 4:47 PM [facility] REPOSITORY TYPE CODE TESTS RESULT OUT OF REFERENCE UNITS RANGE LAB L501.080 70-110 mg/dL High BEDSIDE GLU 203 Result Comment: MANAGEMENT OF PATIENT CARE PER NURSING PROTOCOL Performed By: #### L501.080 #### [facility] Point of Care [address] [place] [address] BEDSIDE GLUCOSE Collected: 12/28/2017 Status: F Source: YEHUDA 11:09 AM [facility] REPOSITORY TYPE CODE TESTS RESULT OUT OF REFERENCE UNITS RANGE LAB L501.080 70-110 mg/dL High BEDSIDE GLU 238 Result Comment: Dr Sánchez Followed MANAGEMENT OF PATIENT CARE PER NURSING PROTOCOL Performed By: #### L501.080 #### [facility] Point of Care [address] [place] [address] BEDSIDE GLUCOSE Collected: 12/28/2017 Status: F Source: YEHUDA 6:34 AM [facility] REPOSITORY TYPE CODE TESTS RESULT OUT OF RANGE REFERENCE UNITS LAB L501.080 70-110 mg/dL Normal BEDSIDE GLU 96 Result Comment: MANAGEMENT OF PATIENT CARE PER NURSING PROTOCOL Performed By: #### L501.080 #### [facility] Point of Care [address] [place] [address] BEDSIDE GLUCOSE Collected: 12/27/2017 Status: F Source: YEHUDA 8:53 PM [facility] REPOSITORY TYPE CODE TESTS RESULT OUT OF REFERENCE UNITS RANGE LAB L501.080 70-110 mg/dL High BEDSIDE GLU 221 Result Comment: MANAGEMENT OF PATIENT CARE PER NURSING PROTOCOL Performed By: #### L501.080 #### [facility] Point of Care [address] [place] [address] BEDSIDE GLUCOSE Collected: 12/27/2017 Status: F Source: YEHUDA 5:01 PM [facility] REPOSITORY TYPE CODE TESTS RESULT OUT OF REFERENCE UNITS RANGE LAB L501.080 70-110 mg/dL High BEDSIDE GLU 238 Result Comment: MANAGEMENT OF PATIENT CARE PER NURSING PROTOCOL Performed By: #### L501.080 #### [facility] Point of Care [address] [place] [address] BEDSIDE GLUCOSE Collected: 12/27/2017 Status: F Source: YEHUDA 11:35 AM [facility] REPOSITORY TYPE CODE TESTS RESULT OUT OF REFERENCE UNITS RANGE LAB L501.080 70-110 mg/dL High BEDSIDE GLU 158 Result Comment: Dr Sánchez Followed MANAGEMENT OF PATIENT CARE PER NURSING PROTOCOL Performed By: #### L501.080 #### [facility] Point of Care [address] [place] [address] BEDSIDE GLUCOSE Collected: 12/27/2017 Status: F Source: YEHUDA 6:35 AM [facility] REPOSITORY TYPE CODE TESTS RESULT OUT OF RANGE REFERENCE UNITS LAB L501.080 70-110 mg/dL Normal BEDSIDE GLU 107 Result Comment: MANAGEMENT OF PATIENT CARE PER NURSING PROTOCOL Performed By: #### L501.080 #### [facility] Point of Care [address] [place] [address] BEDSIDE GLUCOSE Collected: 12/26/2017 Status: F Source: YEHUDA 9:06 PM [facility] REPOSITORY TYPE CODE TESTS RESULT OUT OF REFERENCE UNITS RANGE LAB L501.080 70-110 mg/dL High BEDSIDE GLU 174 Result Comment: MANAGEMENT OF PATIENT CARE PER NURSING PROTOCOL Performed By: #### L501.080 #### [facility] Point of Care [address] [place] [address] BEDSIDE GLUCOSE Collected: 12/26/2017 Status: F Source: YEHUDA 4:56 PM [facility] REPOSITORY TYPE CODE TESTS RESULT OUT OF REFERENCE UNITS RANGE LAB L501.080 70-110 mg/dL High BEDSIDE GLU 224 Result Comment: MANAGEMENT OF PATIENT CARE PER NURSING PROTOCOL Performed By: #### L501.080 #### [facility] Point of Care [address] [place] [address] BEDSIDE GLUCOSE Collected: 12/26/2017 Status: F Source: YEHUDA 11:23 AM [facility] REPOSITORY TYPE CODE TESTS RESULT OUT OF REFERENCE UNITS RANGE LAB L501.080 70-110 mg/dL High BEDSIDE GLU 167 Result Comment: MANAGEMENT OF PATIENT CARE PER NURSING PROTOCOL Performed By: #### L501.080 #### [facility] Point of Care [address] [place] [address] BEDSIDE GLUCOSE Collected: 12/26/2017 Status: F Source: YEHUDA 6:29 AM [facility] REPOSITORY TYPE CODE TESTS RESULT OUT OF RANGE REFERENCE UNITS LAB L501.080 70-110 mg/dL Normal BEDSIDE GLU 85 Result Comment: MANAGEMENT OF PATIENT CARE PER NURSING PROTOCOL Performed By: #### L501.080 #### [facility] Point of Care [address] [place] [address] BEDSIDE GLUCOSE Collected: 12/26/2017 Status: F Source: YEHUDA 6:09 AM [facility] REPOSITORY TYPE CODE TESTS RESULT OUT OF REFERENCE UNITS RANGE LAB L501.080 70-110 mg/dL Low BEDSIDE GLU 58 Result Comment: MANAGEMENT OF PATIENT CARE PER NURSING PROTOCOL Performed By: #### L501.080 #### [facility] Point of Care [address] [place] [address] BEDSIDE GLUCOSE Collected: 12/25/2017 Status: F Source: YEHUDA 8:52 PM [facility] REPOSITORY TYPE CODE TESTS RESULT OUT OF REFERENCE UNITS RANGE LAB L501.080 70-110 mg/dL High BEDSIDE GLU 188 Result Comment: MANAGEMENT OF PATIENT CARE PER NURSING PROTOCOL Performed By: #### L501.080 #### [facility] Point of Care [address] [place] [address] BEDSIDE GLUCOSE Collected: 12/25/2017 Status: F Source: YEHUDA 5:10 PM [facility] REPOSITORY TYPE CODE TESTS RESULT OUT OF REFERENCE UNITS RANGE LAB L501.080 70-110 mg/dL High BEDSIDE GLU 233 Result Comment: Dr Orders Followed MANAGEMENT OF PATIENT CARE PER NURSING PROTOCOL Performed By: #### L501.080 #### [facility] Point of Care [address] [place] [address] BEDSIDE GLUCOSE Collected: 12/25/2017 Status: F Source: YEHUDA 11:07 AM [facility] REPOSITORY TYPE CODE TESTS RESULT OUT OF REFERENCE UNITS RANGE LAB L501.080 70-110 mg/dL High BEDSIDE GLU 171 Result Comment: MANAGEMENT OF PATIENT CARE PER NURSING PROTOCOL Performed By: #### L501.080 #### [facility] Point of Care [address] [place] [address] BEDSIDE GLUCOSE Collected: 12/25/2017 Status: F Source: YEHUDA 6:34 AM [facility] REPOSITORY TYPE CODE TESTS RESULT OUT OF RANGE REFERENCE UNITS LAB L501.080 70-110 mg/dL Normal BEDSIDE GLU 76 Result Comment: MANAGEMENT OF PATIENT CARE PER NURSING PROTOCOL Performed By: #### L501.080 #### [facility] Point of Care [address] [place] [address] BEDSIDE GLUCOSE Collected: 12/24/2017 Status: F Source: YEHUDA 8:50 PM [facility] REPOSITORY TYPE CODE TESTS RESULT OUT OF REFERENCE UNITS RANGE LAB L501.080 70-110 mg/dL High BEDSIDE GLU 243 Result Comment: MANAGEMENT OF PATIENT CARE PER NURSING PROTOCOL Performed By: #### L501.080 #### [facility] Point of Care [address] [place] [address] BEDSIDE GLUCOSE Collected: 12/24/2017 Status: F Source: YEHUDA 4:36 PM [facility] REPOSITORY TYPE CODE TESTS RESULT OUT OF REFERENCE UNITS RANGE LAB L501.080 70-110 mg/dL High BEDSIDE GLU 290 Result Comment: MANAGEMENT OF PATIENT CARE PER NURSING PROTOCOL Performed By: #### L501.080 #### [facility] Point of Care [address] [place] [address] BEDSIDE GLUCOSE Collected: 12/24/2017 Status: F Source: YEHUDA 11:29 AM [facility] REPOSITORY TYPE CODE TESTS RESULT OUT OF RANGE REFERENCE UNITS LAB L501.080 70-110 mg/dL Normal BEDSIDE GLU 92 Result Comment: MANAGEMENT OF PATIENT CARE PER NURSING PROTOCOL Performed By: #### L501.080 #### [facility] Point of Care [address] [place] [address] BEDSIDE GLUCOSE Collected: 12/24/2017 Status: F Source: YEHUDA 9:34 AM [facility] REPOSITORY TYPE CODE TESTS RESULT OUT OF REFERENCE UNITS RANGE LAB L501.080 70-110 mg/dL High BEDSIDE GLU 178 Result Comment: MANAGEMENT OF PATIENT CARE PER NURSING PROTOCOL Performed By: #### L501.080 #### [facility] Point of Care [address] [place] [address] BEDSIDE GLUCOSE Collected: 12/24/2017 Status: F Source: YEHUDA 7:02 AM [facility] REPOSITORY TYPE CODE TESTS RESULT OUT OF RANGE REFERENCE UNITS LAB L501.080 70-110 mg/dL Normal BEDSIDE GLU 72 Result Comment: MANAGEMENT OF PATIENT CARE PER NURSING PROTOCOL Performed By: #### L501.080 #### [facility] Point of Care [address] [place] [address] BEDSIDE GLUCOSE Collected: 12/23/2017 Status: F Source: YEHUDA 9:23 PM [facility] REPOSITORY TYPE CODE TESTS RESULT OUT OF REFERENCE UNITS RANGE LAB L501.080 70-110 mg/dL High BEDSIDE GLU 264 Result Comment: MANAGEMENT OF PATIENT CARE PER NURSING PROTOCOL Performed By: #### L501.080 #### [facility] Point of Care [address] [place] [address] BEDSIDE GLUCOSE Collected: 12/23/2017 Status: F Source: YEHUDA 5:06 PM [facility] REPOSITORY TYPE CODE TESTS RESULT OUT OF REFERENCE UNITS RANGE LAB L501.080 70-110 mg/dL High BEDSIDE GLU 285 Result Comment: MANAGEMENT OF PATIENT CARE PER NURSING PROTOCOL Performed By: #### L501.080 #### [facility] Point of Care [address] [place] [address] BEDSIDE GLUCOSE Collected: 12/23/2017 Status: F Source: YEHUDA 11:32 AM [facility] REPOSITORY TYPE CODE TESTS RESULT OUT OF REFERENCE UNITS RANGE LAB L501.080 70-110 mg/dL High BEDSIDE GLU 145 Result Comment: MANAGEMENT OF PATIENT CARE PER NURSING PROTOCOL Performed By: #### L501.080 #### [facility] Point of Care [address] [place] [address] BEDSIDE GLUCOSE Collected: 12/23/2017 Status: F Source: YEHUDA 6:44 AM [facility] REPOSITORY TYPE CODE TESTS RESULT OUT OF REFERENCE UNITS RANGE LAB L501.080 70-110 mg/dL High BEDSIDE GLU 170 Result Comment: MANAGEMENT OF PATIENT CARE PER NURSING PROTOCOL Performed By: #### L501.080 #### [facility] Point of Care [address] [place] [address] CBC W/DIFF, AUTOMATED Collected: 12/23/2017 Status: C Source: YEHUDA 5:30 AM [facility] REPOSITORY TYPE CODE TESTS RESULT OUT OF RANGE REFERENCE UNITS LAB L100.1000 4.4-11.0 K/mm3 Normal WBC 9.2 LAB L100.1200 4.2-5.4 M/mm3 Normal RBC 5.08 LAB L100.1300 12.0-15.0 g/dl Normal HGB 15.0 LAB L100.1400 37-47 % Normal HCT 43.1 LAB L100.1500 81-99 fL Normal MCV 84.8 LAB L100.1600 27.0-32.0 pg Normal MCH 29.5 LAB L100.1700 32-36 g/gl Normal MCHC 34.8 LAB L100.1810 11.6-14.6 % Normal RDW CV 12.9 LAB L100.1820 35.1-43.9 fl Normal RDW SD 39.6 LAB L100.1900 150-450 K/mm3 Normal PLT 234 LAB L100.2000 6.2-12.0 fl Normal MPV 10.4 LAB L100.3100 MANUAL DIFF Normal CELLS COUNTED 100 LAB L100.3200 47-70 % High 82 SEGS LAB L100.3300 0-5 % 3 Normal BAND LAB L100.3400 0-1 % High 2 META LAB L100.3500 0-0 High 2 MYELO LAB L100.3800 19-41 % Low 6 LYMPH LAB L100.3900 0-10 % 5 Normal MONOCYTE LAB L100.5500 ADEQ Normal PLT EST ADEQUATE LAB L100.7000 NORM C AND C NORMAL Normal RED CELL MORPH NORM C+C LAB L100.2620 2.0-7.7 X10 3/uL High Absolute Neut 7.8 LAB L100.2720 0.83-4.51 X10 3/ul Low Absolute Lymph 0.55 LAB L100.9900 Normal PATH REV Reviewed Result Comment: Neutrophilic left shift. Clinical correlation necessary. Abimael Chan M.D. 12/26/17 AMENDED REPORT 12/26/17 1006 PATH REV previously reported as: May foll Performed By: #### L100.0100 #### [facility] [address] [place], [address] BASIC METABOLIC Collected: 12/23/2017 Status: F Source: YEHUDA PROFILE (BMP) 5:30 AM [facility] REPOSITORY TYPE CODE TESTS RESULT OUT OF RANGE REFERENCE UNITS LAB L501.0100 74-106 mg/dL High GLU 175 Result Comment: Fasting Glucose result greater than or equal to 126 mg/dL suggests DIABETES MELLITUS per A.D.A. criteria. Please note revised GLUCOSE reference range effective 2017. LAB L501.1000 7-18 mg/dL High BUN 20 LAB L501.1100 0.55-1.02 mg/dL Normal CREAT,SERUM 0.68 Result Comment: The validity of the calculated GFR AND GFRAA in patients over 70 years has not been determined. Clinical correlation is essential. LAB L501.1110 >60 mL/min Normal EST GFR 90 Result Comment: Non- GFR Calc LAB L501.1115 >60 mL/min Normal EST GFR - AA 109 Result Comment: GFR Calc LAB L501.1255 ml/min Normal Estimated CRCL 37.81 LAB L501.1300 10-20 RATIO High BUN/CRE 29.5 LAB L501.2200 8.5-10 mg/dL Low .1 CA 8.4 LAB L501.5300 136-14 mmol/L Normal 5 NA 140 LAB L501.5600 3.5-5. mmol/L Normal 1 K 4.2 LAB L501.5900 98-107 mmol/L Normal CL 105 LAB L501.6100 21.0-3 mmol/L Normal 2.0 CO2 28.0 LAB L501.6200 5-15 Normal GAP 7 Performed By: #### L500.2500 #### [facility] [address] [place], [place], [address] BEDSIDE GLUCOSE Collected: 12/22/2017 Status: F Source: YEHUDA 9:06 PM [facility] REPOSITORY TYPE CODE TESTS RESULT OUT OF REFERENCE UNITS RANGE LAB L501.080 70-110 mg/dL High BEDSIDE GLU 299 Result Comment: MANAGEMENT OF PATIENT CARE PER NURSING PROTOCOL Performed By: #### L501.080 #### [facility] Point of Care [address] [place] [address] HISTORY AND PHYSICAL Observed: 12/22/2017 Status: F Source: TRIMBLE EXAM 6:27 PM [facility] REPOSITORY [facility] Medical Records Department [address] [place] [address] History and Physical 12/22/17 1803 MR#: [id number] Acct: [id number] Name: ANTIONETTE WYNNE Rep #: [id number] : 1945 72 From: Haider Jones MD PCP: Mary Chang MD Status: ADM IN Y Location: [place] [address] Problem List (1) Shortness of breath Status: Acute (2) Acute respiratory failure Status: Acute (3) Severe sepsis Status: Acute (4) MSSA (methicillin susceptible Staphylococcus aureus) pneumonia Status: Acute (5) Hypokalemia Status: Chronic (6) RSV (respiratory syncytial virus infection) Status: Acute (7) Asthma Status: Chronic Qualifiers: (8) Paroxysmal atrial fibrillation Status: Chronic (9) Dilated cardiomyopathy Status: Chronic (10) 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 The patient is a 72 year old Female with below past medical history presented to [facility] Emergency Department 12/16/2017 with respiratory distress. 12/16/2017 EKG Normal sinus rhythm, nonspecific ST abnormality. 12/16/2017 KUB tip of gastric tube in antrum of stomach. Pulsox 64%, slumped, unresponsive. CPAP applied. Shortness of breath x several days, productive cough, E-mycin, prednisone not helpful as outpatient. Chest pain. Chest X-ray showed left lower lobe infiltrate. WBC 16.7, BMP Cr 1.13, Glucose 220, UA negative. Troponin okay, BNP 261, Lactate 2.6. Patient intubated, right subclavian line placed. Levaquin, Azactam, IV fluids given. 12/16/2017 Admit to ICU. Levaquin, Solu-Medrol, Duoneb for pneumonia. IV fluids for sepsis. 12/17/2017 Dr. Schmitt recommended Fentanyl drip, antibiotics, IV steroids, bronchodilators, spontaneous wakening, breathing trials, stop Metoprolol, continue carvedilol, start tube feeding, stop IV fluids. 12/18/2017 Chest X-ray showed bibasilar atelectasis. 12/18/2017 Respiratory panel positive RSV B. Continue IV Levaquin. Eliquis held. 12/19/2017 Wean patient off Ventilator. 12/20/2017 Weaned off ventilator to BiPAP. 12/21/2017 Dr. Finn noted RSV B, MSSA in sputum. Continue Cefazolin IV for pneumonia. Transition Cefazolin to Duricef. Insulin added for hyperglycemia secondary to steroids. 12/22/2017 Admit to TCU for rehabilitation, strengthening, prior to discharge home with spouse. 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 heart disease (ASHD) (Chronic) Asthma (Chronic) Restrictive lung disease (Chronic) Paroxysmal atrial fibrillation (Chronic) Nonrheumatic tricuspid valve regurgitation (Chronic) Dilated cardiomyopathy (Chronic) 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) HTN (hypertension) (Chronic) Diabetes mellitus (Chronic) HLD (hyperlipidemia) (Chronic) DM type 2 (diabetes mellitus, type 2) (Chronic) Hypogammaglobulinemia (Chronic) Morbid obesity (Chronic) Migraines (Chronic) BARTOLO (obstructive sleep apnea) (Chronic) CAD (coronary artery disease) (Chronic) Allergies Beta-Blockers (Beta-Adrenergic Bloc Allergy (Verified 12/16/17 20:27) Shortness of breath doxycycline Allergy (Verified 12/16/17 20:27) Hives Penicillins Allergy (Verified 12/16/17 20:27) Rash red dye Allergy (Verified 12/16/17 20:27) Unknown Sulfa (Sulfonamide Antibiotics) Allergy (Verified 12/16/17 20:27) Rash theophylline Allergy (Verified 12/16/17 20:27) Rash codeine Adverse Reaction (Verified 12/16/17 20:27) Nausea Home Medications: Ambulatory Orders Medication Instructions Recorded Budesonide/Formoterol 160/4.5 2 puff INHALATION BID PRN 11/09/15 [Symbicort 160/4.5 Mcg Inhaler (SP)] Montelukast [Singulair] 10 mg PO DAILY 11/09/15 Surgical History: cataract, cholecystectomy, coronary bypass surgery - x4., hysterectomy Psychiatric History: No pertinent psych hx HOME HEALTH OUTREACH COORDINATOR History: No pertinent HOME HEALTH OUTREACH COORDINATOR history Lives: Spouse/ Significant Other Smoking Status: Never smoker Tobacco Use: Non-smoker Alcohol: None Drugs: None - *Family History Paternal History Items: Heart Disease Maternal History Items: Cancer Review of Systems Constitutional: Denies: Chills, Fever, Weight Change HEENT: Denies: Head Aches, Sinus Congestion, Sinus Drainage Cardiovascular: Denies: Chest Pain, Palpitations Respiratory: Denies: Cough, Shortness of breath at rest, Sputum production Gastrointestinal: Denies: Abdominal Pain, Nausea, Vomiting Genitourinary: Denies: Dysuria Musculoskeletal: Denies: Joint Pain, Joint Tenderness Skin: Denies: Rash, Wounds Neurological: Denies: Numbness, Tingling, Focal weakness Psychiatric: Denies: Anxiety, Depression, Homicidal Ideations, Suicidal Ideations Hematologic/ Lymphatic: Denies: Easy Bruising, Easy Bleeding VTE Information - Inpt Only VTE Present on Admission: No VTE Mechan Device Prophylaxis: Knee High MALCOLM Hose VTE Pharm Prophylaxis ordered?: No Reason prophylaxis not ordered:: Treatment Not Indicated Patient Problems: Active and Suspected Problems (Last Updated 12/16/17 @ 22:38 by Melony Gonzalez MD) Shortness of breath (Acute) Acute respiratory failure (Acute) Severe sepsis (Acute) MSSA (methicillin susceptible Staphylococcus aureus) pneumonia (Acute) - Physical Exam General: Alert, Oriented x3, Cooperative HEENT: Atraumatic, PERRLA, EOMI, Normocephalic Neck: Supple, No JVD, Negative Carotid Bruits Lungs: Normal air movement, Wheezes - Few scattered. Cardiovascular: Regular rate, No murmurs Abdomen: Bowel Sounds Present, Soft, Non Tender Extremities: No edema, Capillary Refill Less than 3 Seconds Skin: No rashes, No breakdown Musculoskeletal: No Tenderness to Palpation of Joints or Extremities Neurological: Cranial nerves II-XII grossly intact Psych/Mental Status: Normal Affect, Appropriate Vital Signs Temp Pulse Resp BP Pulse Ox 98.8 F 64 18 147/65 H 96 12/22/17 15:55 12/22/17 16:05 12/22/17 16:05 12/22/17 15:55 12/22/17 16:05 Oxygen Delivery Method Room Air Weight: 100.65 kg Body Mass Index (BMI) 41.9 POC Glucose POC Glucose 289 H Assessment/Plan Active and Suspected Problems (Last Updated 12/16/17 @ 22:38 by Melony Gonzalez MD) Shortness of breath (Acute) Acute respiratory failure (Acute) Severe sepsis (Acute) MSSA (methicillin susceptible Staphylococcus aureus) pneumonia (Acute) 72 year old female with below past medical history hospitalized for acute respiratory distress requiring intubation secondary to RSV B infection, MSSA pneumonia, complicated by atrial fibrillation, admitted to TCU with debility, here for rehabilitation, strengthening, prior to discharge home with spouse. * Debility - PT/OT. * Pain - Tylenol 1000MG Q8H PRN mild pain. * Bowel - Miralax 17GM daily, Senna/colace 2 tablets BID, Dulcolax 10MG PO daily PRN. * Pneumonia vaccination - Administer Prevnar 13 and/or Pneumovax 23 as necessary. * DVT prophylaxis - Not necessary, already on Eliquis. * Migraine - Fioricet 1 tablet BID PRN. * Asthma - Singulair 10MG daily, Albuterol 2 puffs Q4H PRN, Symbicort 160/4.5MG 2 puffs BID, Duoneb 3ML Q4HWA, Stzhspcedoi1s 0.63MG Q4H PRN, Prednisone taper. * Atrial Fibrillation - Coreg 6.25MG BID, Amiodarone 100MG BID, Eliquis 5MG BID. * Cough - Tessalon perles 100MG TID PRN. * MSSA pneumonia - Duricef 1000MG BID thru 12/27/2017. * Hyperlipidemia - Zetia 10MG daily. * GERD - Famotidine 20MG daily. * Edema - Lasix 20MG daily. * Diabetes Mellitus II - Levemir 10 units BID, Novolog 7 units TIDAC. * Hypothyroidism - Levothyroxine 25MCG daily. * Hypokalemia - KCL 20MEQ TID. 12/22/17 1827 <Electronically signed by Haider Jones MD> Date Haider Jones MD Cosigner Signature: Date (if applicable) CC: Mary Chang MD; Haider Jones MD Signed BEDSIDE GLUCOSE Collected: 12/22/2017 Status: F Source: TRIMBLE 4:43 PM [facility] REPOSITORY TYPE CODE TESTS RESULT OUT OF REFERENCE UNITS RANGE LAB L501.080 70-110 mg/dL High BEDSIDE GLU 289 Result Comment: MANAGEMENT OF PATIENT CARE PER NURSING PROTOCOL Performed By: #### L501.080 #### [facility] Point of Care [address] [facility] [place] [address] DISCHARGE SUMMARY Observed: 12/22/2017 Status: F Source: TRIMBLE 2:02 PM [facility] REPOSITORY [facility] Medical Records Department [address] [place] [address] Discharge Summary 12/22/17 0959 MR#: [id number] Acct: [id number] Name: ANTIONETTE WYNNE Rep #: [id number] : 1945 72 From: Aurelio Marroquin MD PCP: Mary Chang MD Status: DIS IN Y Location: [place] [address]1 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 heart disease (ASHD) (Chronic) Asthma (Chronic) Restrictive lung disease (Chronic) Paroxysmal atrial fibrillation (Chronic) Nonrheumatic tricuspid valve regurgitation (Chronic) Dilated cardiomyopathy (Chronic) 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 No acute infiltrate. Electronically Signed: Eric Cole DO at 21:42 EDT , Service support , Chest X-Ray 12/16/17 20:42 IMPRESSION: The endotracheal tube terminates about 5.3 cm above the millie. A gastric tube extends into the upper abdomen. There is bibasilar atelectasis. Electronically Signed: Angie Jamison MD at 22:03 EDT Tel Direct: [phone], Service support , KUB X-Ray 12/16/17 20:55 IMPRESSION: The tip of the gastric tube is in the expected location of the antrum of the stomach. Electronically Signed: Angie Jamison MD at 22:06 EDT Tel Direct: [phone], Service support , Chest X-Ray 12/16/17 21:50 IMPRESSION: Right subclavian central line in place with the tip in the lower SVC. No pneumothorax. Endotracheal tube and NG tube remain in stable position. No acute infiltrate. Electronically Signed: Eric Coel DO at 22:51 EDT , Service support , Chest X-Ray 12/17/17 04:35 IMPRESSION: Moderate cardiomegaly. No failure. No pneumonia. Pleural reactive change in the left costophrenic angle Electronically Signed: Donny Bee, at 8:37 EDT Tel , Service support , Chest X-Ray 12/18/17 22:14 IMPRESSION: Tubes and lines in stable position. Mild bibasilar atelectasis. at 2328 Reported and signed by: Dominique Calzada MD Electronically Signed: Dominique Calzada MD at 22:26 EDT Tel , Service support , Microbiology 12/16/17 20:38 Blood Culture (Wb) - Anticubital Right Blood Culture - Final No growth in 5 days. 12/16/17 21:50 Blood Culture (Wb) - Anticubital Left Blood Culture - Final No growth in 5 days. 12/19/17 07:45 Sputum, Induced/Lukens Gram Stain - Final 12/19/17 07:45 Sputum, Induced/Lukens Respiratory Culture - Final Staphylococcus aureus 12/16/17 21:25 Urine Catheter - Chandra Urine Culture - Final Culture exhibits no growth. 12/16/17 23:30 Mucosa - Nasopharyngeal Respiratory Panel (PCR) - Final RSV B Operations: None Summary of Care Provided: Patient is a 72-year-old lady with multiple comorbidities admitted with progressive shortness of breath and assessment of acute hypoxemic and hypercarbic respiratory failure was made admitted to the intensive care unit where patient has since been managed on the vent. Patient infectious assay came back positive for RSV 1. Acute hypoxic hypoxemic and hypercarbic respiratory failure secondary to asthma exacerbation due to RSV infection complicated by MSSA staph pneumonia, patient admitted to the intensive care unit with consultation placed to the intensive care team patient has since been managed on the vent seen and discussed with Dr. Sevilla this morning plan is for patient to be weaned off the vent. Patient was weaned off the vent on 11/18/2017. Patient seen, cultures came back positive for staph aureus oxacillin sensitive antibiotic regimen subsequently consulted consultation was placed infectious disease in view of patient history of hypogammaglobinemia; was discharged on a short course of Duricef. 2. Acute asthma exacerbation secondary to RSV, 3. Severe sepsis likely secondary to RSV infection, 4. Paroxysmal atrial fibrillation, rate controlled, on IV amiodarone, IV metoprolol 5 mg every 6 is on systemic anticoagulation with Eliquis which was held on admission 5. Diabetes mellitus type 2 uncontrolled in view of concomitant IV steroid use did continue with long-acting insulin as well as Accu-Cheks before meals and at bedtime with sliding scale coverage 6. CAD status post CABG, ischemic cardiomyopathy, EF 45% on last 2d-ECHO, 7. Hypertension, controlled 9. Hypothyroidism patient is on levothyroxine 10. The patient states (Hypogammaglobulinemia) is followed by [facility] as outpatient 11. DVT prophylaxis - Lovenox SC. Home Medications: Medications to take at Discharge Budesonide/Formoterol 160/4.5 [Symbicort 160/4.5 Mcg Inhaler (SP)] 2 puff INHALATION BID PRN 11/09/15 Montelukast [Singulair] 10 mg PO DAILY 11/09/15 Acetaminophen [Tylenol Tablet] 650 mg PO Q8H PRN PRN #0 tab 12/04/15 Acetaminophen/Butalbital/Caffe [Fioricet] 1 tab PO BID PRN PRN 03/26/17 Ezetimibe [Zetia] 10 mg PO DAILY 03/26/17 Potassium Chloride [K-Dur] 20 meq PO TID 03/26/17 amiodarone 200 mg tablet 100 mg PO BID tab 08/22/17 benzonatate 100 mg capsule 100 mg PO Q6H 10/19/17 levalbuterol 0.63 mg/3 mL solution for nebulization 0.63 mg INHALATION Q4H PRN #120 vial 10/28/17 benzonatate 100 mg capsule 100 mg PO TID PRN #30 cap 12/15/17 Albuterol IH (ProAir) [Proair Hfa] 2 puff INHALATION Q4H PRN PRN 12/17/17 Levothyroxine [Synthroid] 25 mcg PO DAILY 12/17/17 Apixaban [Eliquis] 5 mg PO BID 12/22/17 Carvedilol [Coreg (Beta Sara)] 6.25 mg PO BID 12/22/17 Cefadroxil [Duricef] 1,000 mg PO BID 12/22/17 Famotidine [Pepcid] 20 mg PO BID 12/22/17 Furosemide [Lasix] 20 mg PO DAILY 12/22/17 Insulin Aspart [Novolog Flexpen] See Protocol SC ACHS 12/22/17 Insulin Detemir [Levemir FlexPen] 10 units SC 1100,2200 12/22/17 Ipratropium/Albuterol Sulfate [Duoneb] 3 ml INHALATION Q4HWA.RT 12/22/17 Prednisone See Taper PO UD 12/22/17 Senna/Docusate Sodium [Senokot-S] 1 tablet PO BID 12/22/17 Primary Care Physician: Mary Chang MD [Primary Care Provider] - Please follow up with your Primary Care Physician in: in 1- 2 weeks Disposition: [facility]dc facility Minutes spent on discharge:: 45 Patient Condition:: Stable Medical Necessity - Tobacco Use Smoking Status: Never smoker Meaningful Use Info Meaningful Use Diagnoses (Choose all that apply): None applicable Code Visit Inpatient E AND M: 60596 Disch Hosp 12/22/17 1402 <Electronically signed by Aurelio Marroquin MD> Date Aurelio Marroquin MD Cosigner Signature (if applicable): Date CC: Mary Chang MD; Aurelio Marroquin MD Signed BEDSIDE GLUCOSE Collected: 12/22/2017 Status: F Source: YEHUDA 11:54 AM [facility] REPOSITORY TYPE CODE TESTS RESULT OUT OF REFERENCE UNITS RANGE LAB L501.080 70-110 mg/dL High BEDSIDE GLU 142 Result Comment: MANAGEMENT OF PATIENT CARE PER NURSING PROTOCOL Performed By: #### L501.080 #### [facility] Point of Care [address] [place] [address] TRANSFER TO [facility] Observed: 12/22/2017 Status: F Source: [facility] 9:59 AM [facility] REPOSITORY [facility] Medical Records Department [address] [place] [address] Transfer to Extended Care MR#: [id number] Acct: [id number] Name: ANTIONETTE WYNNE Rep #: [id number] : 1945 72 From: Aurelio Marroquin MD PCP: Mary Chang MD Status: ADM IN ANTIONETTE WYNNE (Patient) (Health Ins. Claim No.) (Day of Discharge to Facility) Certification of patient admission REQUIRED AT TIME OF ADMISSION. I CERTIFY THAT POST-HOSPITAL ECF SERVICES ARE REQUIRED TO BE GIVEN ON AN IN-PATIENT BASIS BECAUSE OF THE ABOVE NAMED PATIENT'S NEED FOR [facility] CARE ON A CONTINUING BASIS FOR THE CONDITION(S) FOR WHICH HE/SHE WAS RECEIVING IN-PATIENT HOSPITAL SERVICES PRIOR TO HIS/HER TRANSFER TO THE F. 12/22/17 0959 <Electronically signed by Aurelio Marroquin MD> Date Aurelio Marroquin MD - Diet 12/20/17 08:51 Diet: Carbohydrate Controlled Is pt able to select menu?: Yes - Therapies Physical Therapy: Eval and Treat Occupational Therapy: Eval and Treat - Allergies/Procedures Done in Hospital Allergies/Adverse Reactions: Allergies Beta-Blockers (Beta-Adrenergic Bloc Allergy (Verified 12/16/17 20:27) Shortness of breath doxycycline Allergy (Verified 12/16/17 20:27) Hives Penicillins Allergy (Verified 12/16/17 20:27) Rash red dye Allergy (Verified 12/16/17 20:27) Unknown Sulfa (Sulfonamide Antibiotics) Allergy (Verified 12/16/17 20:27) Rash theophylline Allergy (Verified 12/16/17 20:27) Rash codeine Adverse Reaction (Verified 12/16/17 20:27) Nausea - Type of Care/Length of Stay Estimated LOS: Convalescent Care Less Than 30 days Type of Care Needed: Skilled Rehab Potential: Fair Prognosis: Fair - Additional Orders/Day of Discharge Day of Discharge: 12/22/17 - Dietary and Speech Recommendations Dietitian Recommendations/Changes: Recommend diet change to 1600 calorie controlled, cardiac. - Follow Up Care Primary Care Physician: Mary Chang MD [Primary Care Provider] - Please follow up with your Primary Care Physician in: in 1- 2 weeks 12/22/17 0959 <Electronically signed by Aurelio Marroquin MD> Date Aurelio Marroquin MD CC: Michael Schmitt MD; Mary Chang MD; Carlos Finn MD Signed BEDSIDE GLUCOSE Collected: 12/22/2017 Status: F Source: [place] 6:37 AM [facility] REPOSITORY TYPE CODE TESTS RESULT OUT OF REFERENCE UNITS RANGE LAB L501.080 70-110 mg/dL High BEDSIDE GLU 121 Result Comment: MANAGEMENT OF PATIENT CARE PER NURSING PROTOCOL Performed By: #### L501.080 #### [facility] Point of Care [facility] [place] [address] BASIC METABOLIC Collected: 12/22/2017 Status: F Source: TRIMBLE PROFILE (BMP) 5:25 AM [facility] REPOSITORY Order Comment: SPECIMEN OBTAINED FROM LINE DRAW TYPE CODE TESTS RESULT OUT OF RANGE REFERENCE UNITS LAB L501.0100 74-106 mg/dL High GLU 136 Result Comment: Fasting Glucose result greater than or equal to 126 mg/dL suggests DIABETES MELLITUS per A.D.A. criteria. Please note revised GLUCOSE reference range effective 2017. LAB L501.1000 7-18 mg/dL High BUN 22 LAB L501.1100 0.55-1.02 mg/dL Normal CREAT,SERUM 0.56 Result Comment: The validity of the calculated GFR AND GFRAA in patients over 70 years has not been determined. Clinical correlation is essential. LAB L501.1110 >60 mL/min Normal EST GFR 112 Result Comment: Non- GFR Calc LAB L501.1115 >60 mL/min Normal EST GFR - AA 135 Result Comment: GFR Calc LAB L501.1255 ml/min Normal Estimated CRCL 39.63 LAB L501.1300 10-20 RATIO High BUN/CRE 38.9 LAB L501.2200 8.5-10 mg/dL Low .1 CA 8.0 LAB L501.5300 136-14 mmol/L Normal 5 NA 143 LAB L501.5600 3.5-5. mmol/L Normal 1 K 3.6 LAB L501.5900 98-107 mmol/L Normal CL 106 LAB L501.6100 21.0-3 mmol/L Normal 2.0 CO2 30.0 LAB L501.6200 5-15 Normal GAP 7 Performed By: #### L500.2500, L501.5200 #### [facility] [address] [place], [place], [address] MAGNESIUM Collected: 12/22/2017 Status: F Source: TRIMBLE 5:25 AM [facility] REPOSITORY Order Comment: SPECIMEN OBTAINED FROM LINE DRAW TYPE CODE TESTS RESULT OUT OF RANGE REFERENCE UNITS LAB L501.5200 1.6-2.6 mg/dL Normal MG 2.3 Result Comment: Please note revised Magnesium reference range effective 2017. Performed By: #### L500.2500, L501.5200 #### [facility] [address] [place], [place], [address] CBC-COMPLETE BLOOD CNT Collected: 12/22/2017 Status: F Source: YEHUDA NO DIFF 5:25 AM [facility] REPOSITORY Order Comment: SPECIMEN OBTAINED FROM LINE DRAW TYPE CODE TESTS RESULT OUT OF RANGE REFERENCE UNITS LAB L100.1000 4.4-11.0 K/mm3 Normal WBC 8.8 LAB L100.1200 4.2-5.4 M/mm3 Normal RBC 4.58 LAB L100.1300 12.0-15.0 g/dl Normal HGB 13.3 LAB L100.1400 37-47 % Normal HCT 39.4 LAB L100.1500 81-99 fL Normal MCV 86.0 LAB L100.1600 27.0-32.0 pg Normal MCH 29.0 LAB L100.1700 32-36 g/gl Normal MCHC 33.8 LAB L100.1810 11.6-14.6 % Normal RDW CV 13.1 LAB L100.1820 35.1-43.9 fl Normal RDW SD 41.3 LAB L100.1900 150-450 K/mm3 Normal PLT 213 LAB L100.2000 6.2-12.0 fl Normal MPV 10.3 Performed By: #### L100.0500 #### [facility] [address] [place], [address] BEDSIDE GLUCOSE Collected: 12/21/2017 Status: F Source: YE[place]DA 9:46 PM [facility] REPOSITORY TYPE CODE TESTS RESULT OUT OF REFERENCE UNITS RANGE LAB L501.080 70-110 mg/dL High BEDSIDE GLU 303 Result Comment: MANAGEMENT OF PATIENT CARE PER NURSING PROTOCOL Performed By: #### L501.080 #### [facility] Point of Care [address] [place] [address] BEDSIDE GLUCOSE Collected: 12/21/2017 Status: F Source: YEHUDA 4:35 PM [facility] REPOSITORY TYPE CODE TESTS RESULT OUT OF REFERENCE UNITS RANGE LAB L501.080 70-110 mg/dL High BEDSIDE GLU 290 Result Comment: MANAGEMENT OF PATIENT CARE PER NURSING PROTOCOL Performed By: #### L501.080 #### [facility] Point of Care [address] [place] [address] BEDSIDE GLUCOSE Collected: 12/21/2017 Status: F Source: [place] 11:05 AM [facility] REPOSITORY TYPE CODE TESTS RESULT OUT OF REFERENCE UNITS RANGE LAB L501.080 70-110 mg/dL High BEDSIDE GLU 322 Result Comment: MANAGEMENT OF PATIENT CARE PER NURSING PROTOCOL Performed By: #### L501.080 #### [facility] Point of Care [address] [place] [address] CONSULTATION Observed: 12/21/2017 Status: F Source: YEHUDA 10:49 AM [facility] REPOSITORY [facility] Medical Records Department [address] [place] [address] Consultation 12/21/17 1042 MR#: [id number] Acct: [id number] Name: ANTIONETTE WYNNE Rep #: [id number] : 1945 72 From: Carlos Finn MD PCP: Mary Chang MD Status: ADM IN Y [id number] Problem List (1) RSV (respiratory syncytial virus infection) Status: Acute Reason for Consult: pneumonia Consulted by: Dr. Marroquin History of Present Illness: The patient is a 72 year old F with h/o immunodeficiency, follows with immunology and gets routine pneumococcal vaccination but no other treatment, who presented 12/16 with 3 days of progressive cough, wheeze, chills, aches, congestion, malaise. Sx started suddenly. Had just been at family gathering and someone had a cold there. Sx started, saw pulm office, called back 1-2 days later and got started on azithro. Sx continued to worsen, came to ED. Fever up to 102.6. (+) RSV B, had bronchospasm and did require intubation. Now off vent, fever resolved, having some yellow sputum. Sputum cx with MSSA, so started on cefazolin. Did get dose of vanc 12/20 as well. Breathing slowly improving. Full ROS performed and neg except as noted above. 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) HTN (hypertension) (Chronic) Diabetes mellitus (Chronic) HLD (hyperlipidemia) (Chronic) DM type 2 (diabetes mellitus, type 2) (Chronic) Hypogammaglobulinemia (Chronic) Morbid obesity (Chronic) Migraines (Chronic) BARTOLO (obstructive sleep apnea) (Chronic) CAD (coronary artery disease) (Chronic) Allergies/Adverse Reactions: Allergies Beta-Blockers (Beta-Adrenergic Bloc Allergy (Verified 12/16/17 20:27) Shortness of breath doxycycline Allergy (Verified 12/16/17 20:27) Hives Penicillins Allergy (Verified 12/16/17 20:27) Rash red dye Allergy (Verified 12/16/17 20:27) Unknown Sulfa (Sulfonamide Antibiotics) Allergy (Verified 12/16/17 20:27) Rash theophylline Allergy (Verified 12/16/17 20:27) Rash codeine Adverse Reaction (Verified 12/16/17 20:27) Nausea Home Medications: Ambulatory Orders Medication Instructions Recorded Budesonide/Formoterol 160/4.5 2 puff INHALATION BID PRN 11/09/15 [Symbicort 160/4.5 Mcg Inhaler (SP)] Montelukast [Singulair] 10 mg PO DAILY 11/09/15 - Social History Tobacco Use: non-smoker Vital Signs Temp Pulse Resp BP Pulse Ox 98.3 F 68 20 H 136/68 H 94 12/21/17 08:00 12/21/17 08:00 12/21/17 08:00 12/21/17 08:00 12/21/17 08:00 Oxygen Flow Rate (L/min) 3 Oxygen Delivery Method Room Air Weight: 98.9 kg Body Mass Index (BMI) 39.6 Microbiology Past 72 Hours 12/19/17 07:45 Gram Stain - Final Sputum, Induced/Lukens Respiratory Culture - Final - Other Studies Radiology: [] reviewed Other Studies: [] Route of nutrition/ use of supplements: [] Nutritional Intake: [] IV Site: [] Chandra Catheter: [] - Physical Exam General: Alert, Oriented x3, Cooperative, No apparent distress HEENT: Atraumatic, PERRLA, EOMI Neck: Supple, No Nodes Lungs: Rhonchi, Wheezes Cardiovascular: Regular rate, Regular Rhythm, No murmurs Abdomen: Bowel Sounds Present, Soft, Non Tender, Non-Distended Extremities: Edema Skin: No rashes IV Site: Central Line, without redness Musculoskeletal: No Tenderness to Palpation of Joints or Extremities Neurological: Cranial nerves II-XII grossly intact - Assessment/Plan Antibiotics: [] Assessment/Plan: [] RSV B infection now with MSSA in sputum - fever improved, out of icu and off vent. Breathing slowly improving. Cont cefazolin. 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 Follows with immunology, last infection was several years ago, no further work-up needed at this time; she will follow-up with [employer] soon after discharge. Thank you, will follow, d/w Dr. Marroquin. 12/21/17 1049 <Electronically signed by Carlos Finn MD> Date [facility] Signature (if applicable): Date CC: Michael Schmitt MD; Mary Chang MD; Carlos Finn MD Signed BEDSIDE GLUCOSE Collected: 12/21/2017 Status: F Source: YEHUDA 6:43 AM [facility] REPOSITORY TYPE CODE TESTS RESULT OUT OF REFERENCE UNITS RANGE LAB L501.080 70-110 mg/dL High BEDSIDE GLU 209 Result Comment: MANAGEMENT OF PATIENT CARE PER NURSING PROTOCOL Performed By: #### L501.080 #### [facility] Point of Care [address] [place] [address] BEDSIDE GLUCOSE Collected: 12/20/2017 Status: F Source: YEHUDA 9:38 PM [facility] REPOSITORY TYPE CODE TESTS RESULT OUT OF REFERENCE UNITS RANGE LAB L501.080 70-110 mg/dL High BEDSIDE GLU 275 Result Comment: MANAGEMENT OF PATIENT CARE PER NURSING PROTOCOL Performed By: #### L501.080 #### [facility] Point of Care [address] [place] [address] BEDSIDE GLUCOSE Collected: 12/20/2017 Status: F Source: YEHUDA 5:04 PM [facility] REPOSITORY TYPE CODE TESTS RESULT OUT OF REFERENCE UNITS RANGE LAB L501.080 70-110 mg/dL High BEDSIDE GLU 259 Result Comment: MANAGEMENT OF PATIENT CARE PER NURSING PROTOCOL Performed By: #### L501.080 #### [facility] Point of Care [address] [place] [address] BEDSIDE GLUCOSE Collected: 12/20/2017 Status: F Source: YEHUDA 12:13 PM [facility] REPOSITORY TYPE CODE TESTS RESULT OUT OF REFERENCE UNITS RANGE LAB L501.080 70-110 mg/dL High BEDSIDE GLU 306 Result Comment: MANAGEMENT OF PATIENT CARE PER NURSING PROTOCOL Performed By: #### L501.080 #### [facility] Point of Care [address] [place] [address] 12 LEAD ELECTROCARDIOGRAM Observed: 12/20/2017 Status: F Source: YEHUDA 8:37 AM [facility] REPOSITORY [facility] Cardiovascular Services [address] [place] [address] 12 Lead EKG 12/16/17 2104 MR#: [id number] Acct: [id number] Name: ANTIONETTE WYNNE Rep #: [id number] : 1945 72 From: Diomedes Nguyen MD Attending Dr: Aurelio Marroquin MD Status: ADM IN Ordering Dr: Adam Carranza MD Date: 12/16/17 Location: ICU Sex: F C Admitted: 12/16/17 Test Reason : SOB Blood Pressure : / mmHG Vent. Rate : 099 BPM Atrial Rate : 099 BPM P-R Int : 154 ms QRS Dur : 094 ms QT Int : 364 ms P-R-T Axes : 073 031 078 degrees QTc Int : 467 ms Normal sinus rhythm Nonspecific ST abnormality Abnormal ECG Confirmed by DIOMEDES NGUYEN MD ([id number]), slot editor DOMINIQUE REILLY ([id number]) on 12/20/2017 8:37:21 AM Referred By: Paty Mullen Confirmed By:DIOMEDES NGUYEN MD 12/20/17 0837 Date Diomedes Nguyen MD CC: Mary Chang MD; Aurelio Marroquin MD; Adam Carranza MD Signed BEDSIDE GLUCOSE Collected: 12/20/2017 Status: F Source: YEHUDA 5:02 AM [facility] REPOSITORY TYPE CODE TESTS RESULT OUT OF REFERENCE UNITS RANGE LAB L501.080 70-110 mg/dL High BEDSIDE GLU 239 Result Comment: MANAGEMENT OF PATIENT CARE PER NURSING PROTOCOL Performed By: #### L501.080 #### [facility] Point of Care [address] [place] [address] CBC W/DIFF, AUTOMATED Collected: 12/20/2017 Status: F Source: TRIMBLE 4:10 AM [facility] REPOSITORY TYPE CODE TESTS RESULT OUT OF RANGE REFERENCE UNITS LAB L100.1000 4.4-11.0 K/mm3 Normal WBC 8.5 LAB L100.1200 4.2-5.4 M/mm3 Normal RBC 4.77 LAB L100.1300 12.0-15.0 g/dl Normal HGB 13.8 LAB L100.1400 37-47 % Normal HCT 41.8 LAB L100.1500 81-99 fL Normal MCV 87.6 LAB L100.1600 27.0-32.0 pg Normal MCH 28.9 LAB L100.1700 32-36 g/gl Normal MCHC 33.0 LAB L100.1810 11.6-14.6 % Normal RDW CV 13.3 LAB L100.1820 35.1-43.9 fl Normal RDW SD 42.8 LAB L100.1900 150-450 K/mm3 Normal PLT 209 LAB L100.2000 6.2-12.0 fl Normal MPV 10.4 LAB L100.2100 47-70 % High NEUT% 86.0 LAB L100.2200 19-41 % Low LY% 6.1 LAB L100.2300 0-10 % Normal MONO% 7.4 LAB L100.2400 0-5 % Normal EO% 0.0 LAB L100.2500 0-1 % Normal BASO% 0.1 LAB L100.2550 0.0-0.9 % Normal IM GRAN % 0.400 Result Comment: IG% - Immature Granulocytes (promyelocytes, myelocytes and metamyelocytes) > 1% indicates that a LEFT SHIFT is Present. LAB L100.2620 2.0-7.7 X10 3/uL Normal Absolute Neut 7.3 LAB L100.2720 0.83-4.51 X10 3/ul Low Absolute Lymph 0.52 LAB L100.4500 Normal SMEAR COMMENT SCANNED LAB L100.4700 Normal REACTIVE LYMPH RARE LAB L100.5500 ADEQ Normal PLT EST ADEQUATE Performed By: #### L100.0100 #### [facility] [address] [place], [address] BASIC METABOLIC Collected: 12/20/2017 Status: F Source: YEHUDA PROFILE (BMP) 4:10 AM [facility] REPOSITORY TYPE CODE TESTS RESULT OUT OF RANGE REFERENCE UNITS LAB L501.0100 74-106 mg/dL High GLU 234 Result Comment: Glucose result greater than or equal to 200 mg/dL suggests DIABETES MELLITUS per A.D.A. criteria. Please note revised GLUCOSE reference range effective 2017. LAB L501.1000 7-18 mg/dL High BUN 29 LAB L501.1100 0.55-1.02 mg/dL Normal CREAT,SERUM 0.67 Result Comment: The validity of the calculated GFR AND GFRAA in patients over 70 years has not been determined. Clinical correlation is essential. LAB L501.1110 >60 mL/min Normal EST GFR 92 Result Comment: Non- GFR Calc LAB L501.1115 >60 mL/min Normal EST GFR - AA 111 Result Comment: GFR Calc LAB L501.1255 ml/min Normal Estimated CRCL 39.63 LAB L501.1300 10-20 RATIO High BUN/CRE 43.3 LAB L501.2200 8.5-10 mg/dL Low .1 CA 8.2 LAB L501.5300 136-14 mmol/L Normal 5 NA 143 LAB L501.5600 3.5-5. mmol/L Normal 1 K 4.3 LAB L501.5900 98-107 mmol/L Normal CL 107 LAB L501.6100 21.0-3 mmol/L Normal 2.0 CO2 29.0 LAB L501.6200 5-15 Normal GAP 7 Performed By: #### L500.2500 #### [facility] [address] [place], [place], [address] BEDSIDE GLUCOSE Collected: 12/19/2017 Status: F Source: YEHUDA 11:34 PM [facility] REPOSITORY TYPE CODE TESTS RESULT OUT OF REFERENCE UNITS RANGE LAB L501.080 70-110 mg/dL High BEDSIDE GLU 241 Result Comment: MANAGEMENT OF PATIENT CARE PER NURSING PROTOCOL Performed By: #### L501.080 #### [facility] Point of Care [address] [facility] [place], [place] [address] BEDSIDE GLUCOSE Collected: 12/19/2017 Status: F Source: TRIMBLE 6:19 PM [facility] REPOSITORY TYPE CODE TESTS RESULT OUT OF REFERENCE UNITS RANGE LAB L501.080 70-110 mg/dL High BEDSIDE GLU 259 Result Comment: MANAGEMENT OF PATIENT CARE PER NURSING PROTOCOL Performed By: #### L501.080 #### [facility] Point of Care [address] [place], [place] [address] BEDSIDE GLUCOSE Collected: 12/19/2017 Status: F Source: [place] 11:56 AM [facility] REPOSITORY TYPE CODE TESTS RESULT OUT OF REFERENCE UNITS RANGE LAB L501.080 70-110 mg/dL High BEDSIDE GLU 243 Result Comment: MANAGEMENT OF PATIENT CARE PER NURSING PROTOCOL Performed By: #### L501.080 #### [facility] Point of Care [address] [place], [place] [address] Observed: 12/19/2017 Status: F Source: TRIM[place] CULTURE, SPUTUM 7:45 AM [facility] REPOSITORY Order Date: 12/19/17 Gram Stain Acceptable Specimen? Acceptable Specimen(Evaluation not needed) Gram Stain 3+ White Blood Cells 2+ Gram positive cocci in clusters 1+ Gram positive cocci in chains and clusters Resp. Culture ORGANISM 1: Staphylococcus aureus Amount Growth 3+ Staphylococcus aureus: REACTION Benzylpenicillin NF >=0.5 R Cefoxitin *NF - Clindamycin $$ >=8 R Inducable Clindamycin Resistan - Erythromycin $ >=8 R Gentamicin $ <=0.5 S Levofloxacin $ >=8 R Linezolid $$$$ 2 S Moxifloxicin *NF >=8 R Oxacillin NF 0.5 S Tigecycline $$$$ <=0.12 S Rifampin $$ <=0.5 S Tetracycline NF <=1 S Trimethoprim/Sulfametho $ <=10 S Vancomycin $ 1 S (NF) indicates non-formulary drug at [facility]. Approval by Infectious Disease Specialist required before non-formulary drugs may be ordered and/or dispensed. * CLSI guidelines does not recommend testing of cephalosporins. This interpretation is deduced from Beta-lactam/penicillin results. Performed By: #### M100.0800 #### [facility] [address] [place], [place], [address] BEDSIDE GLUCOSE Collected: 12/19/2017 Status: F Source: TRIMBLE 4:36 AM [facility] REPOSITORY TYPE CODE TESTS RESULT OUT OF REFERENCE UNITS RANGE LAB L501.080 70-110 mg/dL High BEDSIDE GLU 271 Result Comment: MANAGEMENT OF PATIENT CARE PER NURSING PROTOCOL Performed By: #### L501.080 #### [facility] [place] [address] CBC W/DIFF, AUTOMATED Collected: 12/19/2017 Status: F Source: YEHUDA 4:25 AM [facility] REPOSITORY TYPE CODE TESTS RESULT OUT OF RANGE REFERENCE UNITS LAB L100.1000 4.4-11.0 K/mm3 Normal WBC 10.7 LAB L100.1200 4.2-5.4 M/mm3 Normal RBC 4.85 LAB L100.1300 12.0-15.0 g/dl Normal HGB 14.0 LAB L100.1400 37-47 % Normal HCT 42.4 LAB L100.1500 81-99 fL Normal MCV 87.4 LAB L100.1600 27.0-32.0 pg Normal MCH 28.9 LAB L100.1700 32-36 g/gl Normal MCHC 33.0 LAB L100.1810 11.6-14.6 % Normal RDW CV 13.4 LAB L100.1820 35.1-43.9 fl Normal RDW SD 42.7 LAB L100.1900 150-450 K/mm3 Normal PLT 206 LAB L100.2000 6.2-12.0 fl Normal MPV 10.4 LAB L100.2100 47-70 % High NEUT% 86.1 LAB L100.2200 19-41 % Low LY% 5.7 LAB L100.2300 0-10 % Normal MONO% 7.7 LAB L100.2400 0-5 % Normal EO% 0.0 LAB L100.2500 0-1 % Normal BASO% 0.1 LAB L100.2550 0.0-0.9 % Normal IM GRAN % 0.400 Result Comment: IG% - Immature Granulocytes (promyelocytes, myelocytes and metamyelocytes) > 1% indicates that a LEFT SHIFT is Present. LAB L100.2620 2.0-7.7 X10 3/uL High Absolute Neut 9.2 LAB L100.2720 0.83-4.51 X10 3/ul Low Absolute Lymph 0.61 Performed By: #### L100.0100, L500.2500 #### [facility] [address] [place], [place], [address] BASIC METABOLIC Collected: 12/19/2017 Status: F Source: YEHUDA PROFILE (BMP) 4:25 AM [facility] REPOSITORY TYPE CODE TESTS RESULT OUT OF RANGE REFERENCE UNITS LAB L501.0100 74-106 mg/dL High GLU 242 Result Comment: Glucose result greater than or equal to 200 mg/dL suggests DIABETES MELLITUS per A.D.A. criteria. Please note revised GLUCOSE reference range effective 2017. LAB L501.1000 7-18 mg/dL High BUN 25 LAB L501.1100 0.55-1.02 mg/dL Normal CREAT,SERUM 0.70 Result Comment: The validity of the calculated GFR AND GFRAA in patients over 70 years has not been determined. Clinical correlation is essential. LAB L501.1110 >60 mL/min Normal EST GFR 87 Result Comment: Non- GFR Calc LAB L501.1115 >60 mL/min Normal EST GFR - AA 106 Result Comment: GFR Calc LAB L501.1255 ml/min Normal Estimated CRCL 39.63 LAB L501.1300 10-20 RATIO High BUN/CRE 35.8 LAB L501.2200 8.5-10 mg/dL Low .1 CA 8.4 LAB L501.5300 136-14 mmol/L Normal 5 NA 139 LAB L501.5600 3.5-5. mmol/L Normal 1 K 4.4 LAB L501.5900 98-107 mmol/L Normal CL 105 LAB L501.6100 21.0-3 mmol/L Normal 2.0 CO2 26.0 LAB L501.6200 5-15 Normal GAP 8 Performed By: #### L100.0100, L500.2500 #### [facility] [address] [place], [address] BEDSIDE GLUCOSE Collected: 12/18/2017 Status: F Source: YEHUDA 11:50 PM [facility] REPOSITORY TYPE CODE TESTS RESULT OUT OF REFERENCE UNITS RANGE LAB L501.080 70-110 mg/dL High BEDSIDE GLU 239 Result Comment: MANAGEMENT OF PATIENT CARE PER NURSING PROTOCOL Performed By: #### L501.080 #### [facility] Point of Care [address] [place] [address] CHEST 1 VIEW Observed: 12/18/2017 Status: F Source: YEHUDA (PORTABLE) 10:15 PM [facility] REPOSITORY [facility] Imaging Services [address] [place] [address] Chest 1 View (Portable) MR#: [id number] Acct: [id number] Name: ANTIONETTE WYNNE Rep #: [id number] : 1945 F 72 From: Dominique Calzada MD PCP: Mary Chang MD Status: ADM IN Study: Chest 1 View (Portable) Date of Exam: 12/18/17 Exam# [id number] Ordering Dr: Michael Schmitt MD XR Chest 1 View INDICATION: LINE PLACEMENT COMPARISON: Prior day TECHNIQUE: Frontal view of the chest FINDINGS: ET tube is seen in place with tip approximately 3 cm above the millie, unchanged. NG tube is seen with tip extending below the diaphragm, presumably in the stomach. Right-sided subclavian access central line is seen with tip extending to the SVC/RA junction, stable. Heart size is mildly enlarged. Sternotomy wires are noted. Mild atelectasis is seen at the lung bases, lungs appear otherwise clear. RAD/Chest 1 View (Portable) IMPRESSION: Tubes and lines in stable position. Mild bibasilar atelectasis. at 2328 Reported and signed by: Dominique Calzada MD Electronically Signed: Dominique Calzada MD at 22:26 EDT Tel , Service support , CC: Michael Schmitt MD; Mary Chang MD Green Building Architect: Signed BEDSIDE GLUCOSE Collected: 12/18/2017 Status: F Source: TRIM[place] 6:34 PM [facility] REPOSITORY TYPE CODE TESTS RESULT OUT OF REFERENCE UNITS RANGE LAB L501.080 70-110 mg/dL High BEDSIDE GLU 244 Result Comment: Insulin Given MANAGEMENT OF PATIENT CARE PER NURSING PROTOCOL Performed By: #### L501.080 #### [facility] Point of Care [address] [place] [address] BEDSIDE GLUCOSE Collected: 12/18/2017 Status: F Source: YEHUDA 11:21 AM [facility] REPOSITORY TYPE CODE TESTS RESULT OUT OF REFERENCE UNITS RANGE LAB L501.080 70-110 mg/dL High BEDSIDE GLU 318 Result Comment: Insulin Given MANAGEMENT OF PATIENT CARE PER NURSING PROTOCOL Performed By: #### L501.080 #### [facility] Point of Care [address] [place] [address] CONSULTATION Observed: 12/18/2017 Status: F Source: YEHUDA 5:54 AM [facility] REPOSITORY [facility] Medical Records Department [address] [place] [address] Consultation 12/17/17 0646 MR#: [id number] Acct: [id number] Name: ANTIONETTE WYNNE Rep #: [id number] : 1945 72 From: Michael Schmitt MD PCP: Mary Chang MD Status: ADM IN Y Location: ICU ICU-1 Problem List (1) History of coronary artery bypass graft x 3 Status: Chronic (2) Arteriosclerotic heart disease (ASHD) Status: Chronic (3) Asthma Status: Chronic Qualifiers: Asthma severity: mild Asthma persistence: intermittent Asthma complication type: with acute exacerbation Qualified Code(s): J45.21 - Mild intermittent asthma with (acute) exacerbation (4) Restrictive lung disease Status: Chronic (5) Paroxysmal atrial fibrillation Status: Chronic (6) Nonrheumatic tricuspid valve regurgitation Status: Chronic (7) Dilated cardiomyopathy Status: Chronic (8) 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 (9) HTN (hypertension) Status: Chronic (10) Diabetes mellitus Status: Chronic (11) HLD (hyperlipidemia) Status: Chronic (12) DM type 2 (diabetes mellitus, type 2) Status: Chronic (13) Hypogammaglobulinemia Status: Chronic (14) Morbid obesity Status: Chronic (15) Migraines Status: Chronic (16) BARTOLO (obstructive sleep apnea) Status: Chronic (17) CAD (coronary artery disease) Status: Chronic Reason for Consult Date of Consultation: 12/17/17 Reason for Consultation: Respiratory failure History of Present Illness: The patient is a 72 year old F, with past medical history listed below, who presented to [facility] on 12/16/2017 secondary to shortness of breath. Mass reported on arrival patient was noted to have a pulse ox of 64% with decreased mental status. Patient was placed on CPAP therapy and then transported to the emergency room for evaluation. On presentation, patient was noted to be 96%. Patient reportedly had been seen in our office 3 days prior and placed on azithromycin and prednisone therapy. Patient did have a cough with production of yellow sputum per that office note. Patient denies any history of previous PE or DVT. Patient was noted to be significantly hypertensive on presentation with a fever of 102.6 F. An ABG was obtained showing acute respiratory failure with hypercapnia and increased AA gradient. Patient was intubated and then transported to the intensive care unit for further monitoring. On arrival to the intensive care unit, patient was hypotensive. Patient responded well to fluid challenge through a right subclavian TLC. Patient did not require any pressor therapy. Patient was placed on propofol and continued on mechanical ventilation. No spontaneous breathing trial was obtained this morning secondary to recent intubation. Patient is reporting pain. Patient does have elevated peak pressures noted on ventilator. Patient is established with Dr. Sevilla in our office. Patient did have a pulmonary function test completed on July 27, 2017 which showed a moderate mixed ventilatory defect with symmetric reduction diffusing capacity. Patient also had a walking oximetry completed in July 2016 that showed no oxygen was required with ambulation. Patient did not report fever on presentation to the office earlier this week. Patient does have a long history of cardiomyopathy and a heart catheterization completed in showed severe hypokinesis of the anterior, anteroapical and inferior apical segments resulting in an LVEF of approximately 40%. Patient's is not at the bedside to provide additional review of systems at this time. Past Medical History Past Medical History (Chronic Problems): Chronic Problems (Last Updated 12/16/17 @ 22:38 by Melony Gonzalez MD) 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 heart disease (ASHD) (Chronic) Asthma (Chronic) Restrictive lung disease (Chronic) Paroxysmal atrial fibrillation (Chronic) Nonrheumatic tricuspid valve regurgitation (Chronic) Dilated cardiomyopathy (Chronic) 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) HTN (hypertension) (Chronic) Diabetes mellitus (Chronic) HLD (hyperlipidemia) (Chronic) DM type 2 (diabetes mellitus, type 2) (Chronic) Hypogammaglobulinemia (Chronic) Morbid obesity (Chronic) Migraines (Chronic) BARTOLO (obstructive sleep apnea) (Chronic) CAD (coronary artery disease) (Chronic) Allergies Beta-Blockers (Beta-Adrenergic Bloc Allergy (Verified 12/16/17 20:27) Shortness of breath doxycycline Allergy (Verified 12/16/17 20:27) Hives Penicillins Allergy (Verified 12/16/17 20:27) Rash red dye Allergy (Verified 12/16/17 20:27) Unknown Sulfa (Sulfonamide Antibiotics) Allergy (Verified 12/16/17 20:27) Rash theophylline Allergy (Verified 12/16/17 20:27) Rash codeine Adverse Reaction (Verified 12/16/17 20:27) Nausea Home Medications: Ambulatory Orders Medication Instructions Recorded Budesonide/Formoterol 160/4.5 2 puff INHALATION BID PRN 11/09/15 [Symbicort 160/4.5 Mcg Inhaler (SP)] Montelukast [Singulair] 10 mg PO DAILY 11/09/15 Surgical History: cholecystectomy, coronary bypass surgery, hysterectomy Psychiatric History: No pertinent psych hx HOME HEALTH OUTREACH COORDINATOR History: No pertinent HOME HEALTH OUTREACH COORDINATOR history Lives: Spouse/ Significant Other Smoking Status: Never smoker Alcohol: None Drugs: None - *Family History Paternal History Items: Heart Disease Maternal History Items: Cancer Review of Systems Unable to obtain accurate/complete ROS d/t: Intubated and sedated Objective: All imaging was reviewed. Serial chest x-rays do show significant RVH with no obvious infiltrate. Patient may have a atypical infection versus congestion pattern. - Physical Exam General: - - RASS -1. Fair vent synchrony noted. Morbidly obese. HEENT: Atraumatic, PERRLA, EOMI, Normocephalic, - - Slight scleral injection without icterus. Some matting noted of the left eye. Oral: Moist Mucosa, No Gingival or Mucosal Lesions/ Ulcerations Neck: Supple, No JVD, No Nodes, Trachea Midline Lungs: No rhonchi, No rales, Diminished, Wheezes, - - Symmetric expansion. No dullness to percussion. Cardiovascular: Regular rate, Regular Rhythm, Normal S1, Normal S2, No murmurs, No rub noted, No Gallop Abdomen: Bowel Sounds Present, Soft, Non Tender, Non-Distended, Obese Extremities: No clubbing, No cyanosis, No edema, Capillary Refill Less than 3 Seconds Skin: No rashes, No breakdown Musculoskeletal: No Tenderness to Palpation of Joints or Extremities Lymphatic: No Cervical, Supraclavicular, or Inguinal Adenopathy Neurological: Cranial nerves II-XII grossly intact, Neuro grossly intact, Motor Exam 5/5 strength throughout, Sensory exam intact to light touch and pain Psych/Mental Status: Flat Affect, Restless - With waking Vital Signs Temp Pulse Resp BP Pulse Ox 38.0 C H 71 16 136/70 H 97 12/17/17 06:00 12/17/17 06:32 12/17/17 06:32 12/17/17 06:00 12/17/17 06:32 Oxygen Delivery Method Mechanical Ventilator Weight: 99.7 kg Body Mass Index (BMI) 39.6 Intake and Output for Last 24 Hours Intake Total 2098.4 / 2098.4 Output Total 250 / 250 Balance 1848.4 / 1848.4 Laboratory Tests Past 24 Hrs WBC RBC Hgb Hct MCV MCH MCHC WBC 8.4 RBC 4.50 Hgb 13.1 Hct 39.4 MCV 87.6 MCH 29.1 MCHC 33.2 POC Glucose POC Glucose 240 H 198 H Clinical Impression(s) from Imaging Studies Chest X-Ray 12/16/17 20:32 IMPRESSION: Cardiomegaly. No acute infiltrate. Electronically Signed: Eric Cole DO at 21:42 EDT , Service support , Chest X-Ray 12/16/17 20:42 IMPRESSION: The endotracheal tube terminates about 5.3 cm above the millie. A gastric tube extends into the upper abdomen. There is bibasilar atelectasis. Electronically Signed: Angie Jamison MD at 22:03 EDT Tel Direct: [phone], Service support , KUB X-Ray 12/16/17 20:55 IMPRESSION: The tip of the gastric tube is in the expected location of the antrum of the stomach. Electronically Signed: Angie Jamison MD at 22:06 EDT Tel Direct: [phone], Service support , Chest X-Ray 12/16/17 21:50 IMPRESSION: Right subclavian central line in place with the tip in the lower SVC. No pneumothorax. Endotracheal tube and NG tube remain in stable position. No acute infiltrate. Electronically Signed: Eric Cole DO at 22:51 EDT , Service support , Assessment/Plan RECOMMENDATIONS: 1. Initiate fentanyl drip 2. Continue empiric antibiotics until cultures completed 3. Continue IV steroids, bronchodilators 4. Spontaneous awakening and breathing trials per protocol 5. Discontinue Lopressor, continue carvedilol 6. Initiate tube feeds, discontinue IV fluids IMPRESSIONS: 1. Acute combined respiratory failure secondary to asthma exacerbation Patient does have a history of obstructive lung disease that is likely complicated by concomitant congestive heart failure. Patient does have a atypical type of infiltrate versus congestion noted on chest x-ray but no focal infiltrate. Patient does have significant enlargement of the RV on chest x-ray. Will initiate patient on fentanyl drip given reported pain. Spontaneous breathing and awakening trials per protocol. Oxygenation has improved indicating probable atelectasis as an etiology. Would continue with empiric antibiotics for now until culture data is available. Viral panel is currently pending. If viral panel was positive, discontinuation of antibiotics would be appropriate. 2. Severe sepsis Unclear etiology at this time. Patient is spiking significant fevers and did report a productive cough. Atypical pneumonia may be an etiology. Levaquin is on appropriate initial therapy. Stout cultures and viral panel are currently pending. 3. Paroxysmal A. fib/CAD status post CABG/chronic systolic CHF Patient is in sinus rhythm and rate controlled at this time. Patient did have some decreased blood pressures overnight, but has responded to fluid challenge. Patient does have a dilated RV noted on chest x-ray. Watch I and O's closely. Will transition to tube feeds for better nutritional support and discontinue maintenance fluids. We will continue with carvedilol, but discontinue Lopressor. 4. Diabetes mellitus type 2 Patient requires steroid therapy at this time. On initiation of tube feeds, patient will likely require insulin coverage. Will likely initiate basal insulin once demands are known. 5. Hypothyroidism/hypertension/history of obstructive sleep apnea/migraine/advanced age Complicates care, management, recovery and prognosis. Likely okay to continue with baseline medications. Patient will likely require CPAP versus BiPAP support following extubation with sleep. TIME: 40 minutes of critical care time spent addressing patient's acute combined respiratory failure, severe sepsis, diabetes, review of all data and collaboration with care team (5:45 AM to 7 AM) Code Visit 9xxxx: [id number] Critical care first hour 12/18/17 0554 <Electronically signed by Michael Schmitt MD> Date Michael Schmitt MD Cosigner Signature (if applicable): Date CC: Michael Schmitt MD; Mary Chang MD Signed BEDSIDE GLUCOSE Collected: 12/18/2017 Status: F Source: TRIMBLE 5:15 AM [facility] REPOSITORY TYPE CODE TESTS RESULT OUT OF REFERENCE UNITS RANGE LAB L501.080 70-110 mg/dL High BEDSIDE GLU 264 Result Comment: MANAGEMENT OF PATIENT CARE PER NURSING PROTOCOL Performed By: #### L501.080 #### [facility] Point of Care [facility] [place] [address] CBC W/DIFF, AUTOMATED Collected: 12/18/2017 Status: F Source: TRIMBLE 4:55 AM [facility] REPOSITORY TYPE CODE TESTS RESULT OUT OF RANGE REFERENCE UNITS LAB L100.1000 4.4-11.0 K/mm3 High WBC 11.9 LAB L100.1200 4.2-5.4 M/mm3 Normal RBC 4.85 LAB L100.1300 12.0-15.0 g/dl Normal HGB 14.2 LAB L100.1400 37-47 % Normal HCT 42.1 LAB L100.1500 81-99 fL Normal MCV 86.8 LAB L100.1600 27.0-32.0 pg Normal MCH 29.3 LAB L100.1700 32-36 g/gl Normal MCHC 33.7 LAB L100.1810 11.6-14.6 % Normal RDW CV 13.5 LAB L100.1820 35.1-43.9 fl Normal RDW SD 42.0 LAB L100.1900 150-450 K/mm3 Normal PLT 254 LAB L100.2000 6.2-12.0 fl Normal MPV 10.7 LAB L100.2100 47-70 % High NEUT% 84.0 LAB L100.2200 19-41 % Low LY% 4.6 LAB L100.2300 0-10 % High MONO% 10.8 LAB L100.2400 0-5 % Normal EO% 0.0 LAB L100.2500 0-1 % Normal BASO% 0.2 LAB L100.2550 0.0-0.9 % Normal IM GRAN % 0.400 Result Comment: IG% - Immature Granulocytes (promyelocytes, myelocytes and metamyelocytes) > 1% indicates that a LEFT SHIFT is Present. LAB L100.2620 2.0-7.7 X10 3/uL High Absolute Neut 10.0 LAB L100.2720 0.83-4.51 X10 3/ul Low Absolute Lymph 0.55 Performed By: #### L100.0100 #### [facility] [address] [place], [place] [address]all [facility] [place], [place], [address] BASIC METABOLIC Collected: 12/18/2017 Status: F Source: TRIMBLE PROFILE (BMP) 4:55 AM [facility] REPOSITORY TYPE CODE TESTS RESULT OUT OF RANGE REFERENCE UNITS LAB L501.0100 74-106 mg/dL High GLU 268 Result Comment: Glucose result greater than or equal to 200 mg/dL suggests DIABETES MELLITUS per A.D.A. criteria. Please note revised GLUCOSE reference range effective 2017. LAB L501.1000 7-18 mg/dL High BUN 20 LAB L501.1100 0.55-1.02 mg/dL Normal CREAT,SERUM 0.75 Result Comment: The validity of the calculated GFR AND GFRAA in patients over 70 years has not been determined. Clinical correlation is essential. LAB L501.1110 >60 mL/min Normal EST GFR 80 Result Comment: Non- GFR Calc LAB L501.1115 >60 mL/min Normal EST GFR - AA 97 Result Comment: GFR Calc LAB L501.1255 ml/min Normal Estimated CRCL 39.63 LAB L501.1300 10-20 RATIO High BUN/CRE 26.6 LAB L501.2200 8.5-10 mg/dL Low .1 CA 8.1 LAB L501.5300 136-14 mmol/L Normal 5 NA 139 LAB L501.5600 3.5-5. mmol/L Normal 1 K 4.1 LAB L501.5900 98-107 mmol/L Normal CL 105 LAB L501.6100 21.0-3 mmol/L Normal 2.0 CO2 25.0 LAB L501.6200 5-15 Normal GAP 9 Performed By: #### L500.2500, L501.2300, L501.5200 #### [facility] [address] [place], [place], [id number] PHOSPHORUS Collected: 12/18/2017 Status: F Source: TRIMBLE 4:55 AM [facility] REPOSITORY TYPE CODE TESTS RESULT OUT OF RANGE REFERENCE UNITS LAB L501.2300 2.5-4.9 mg/dL Low PHOS 2.2 Performed By: #### L500.2500, L501.2300, L501.5200 #### [facility] [address] [place], [place], [id number] MAGNESIUM Collected: 12/18/2017 Status: F Source: YEHUDA 4:55 AM [facility] REPOSITORY TYPE CODE TESTS RESULT OUT OF RANGE REFERENCE UNITS LAB L501.5200 1.6-2.6 mg/dL Normal MG 2.3 Result Comment: Please note revised Magnesium reference range effective 2017. Performed By: #### L500.2500, L501.2300, L501.5200 #### [facility] [address] [place], [place], [address] BEDSIDE GLUCOSE Collected: 12/18/2017 Status: F Source: TRIMBLE 1:13 AM [facility] REPOSITORY TYPE CODE TESTS RESULT OUT OF REFERENCE UNITS RANGE LAB L501.080 70-110 mg/dL High BEDSIDE GLU 262 Result Comment: MANAGEMENT OF PATIENT CARE PER NURSING PROTOCOL Performed By: #### L501.080 #### [facility] Point of Care [address] [place] [address] BEDSIDE GLUCOSE Collected: 12/17/2017 Status: F Source: YEHUDA 4:57 PM [facility] REPOSITORY TYPE CODE TESTS RESULT OUT OF REFERENCE UNITS RANGE LAB L501.080 70-110 mg/dL High BEDSIDE GLU 216 Result Comment: Insulin Given MANAGEMENT OF PATIENT CARE PER NURSING PROTOCOL Performed By: #### L501.080 #### [facility] Point of Care [address] [place] [address] BEDSIDE GLUCOSE Collected: 12/17/2017 Status: F Source: YEHUDA 11:58 AM [facility] REPOSITORY TYPE CODE TESTS RESULT OUT OF REFERENCE UNITS RANGE LAB L501.080 70-110 mg/dL High BEDSIDE GLU 222 Result Comment: Insulin Given MANAGEMENT OF PATIENT CARE PER NURSING PROTOCOL Performed By: #### L501.080 #### [facility] Point of Care [address] [place] [address] BEDSIDE GLUCOSE Collected: 12/17/2017 Status: F Source: YEHUDA 5:50 AM [facility] REPOSITORY TYPE CODE TESTS RESULT OUT OF REFERENCE UNITS RANGE LAB L501.080 70-110 mg/dL High BEDSIDE GLU 240 Result Comment: MANAGEMENT OF PATIENT CARE PER NURSING PROTOCOL Performed By: #### L501.080 #### [facility] Point of Care [address] [place] [address] CBC W/DIFF, AUTOMATED Collected: 12/17/2017 Status: F Source: YEHUDA 4:15 AM [facility] REPOSITORY TYPE CODE TESTS RESULT OUT OF RANGE REFERENCE UNITS LAB L100.1000 4.4-11.0 K/mm3 Normal WBC 8.4 LAB L100.1200 4.2-5.4 M/mm3 Normal RBC 4.50 LAB L100.1300 12.0-15.0 g/dl Normal HGB 13.1 LAB L100.1400 37-47 % Normal HCT 39.4 LAB L100.1500 81-99 fL Normal MCV 87.6 LAB L100.1600 27.0-32.0 pg Normal MCH 29.1 LAB L100.1700 32-36 g/gl Normal MCHC 33.2 LAB L100.1810 11.6-14.6 % Normal RDW CV 13.7 LAB L100.1820 35.1-43.9 fl High RDW SD 44.2 LAB L100.1900 150-450 K/mm3 Normal PLT 212 LAB L100.2000 6.2-12.0 fl Normal MPV 10.3 LAB L100.2100 47-70 % High NEUT% 87.4 LAB L100.2200 19-41 % Low LY% 5.2 LAB L100.2300 0-10 % Normal MONO% 7.0 LAB L100.2400 0-5 % Normal EO% 0.0 LAB L100.2500 0-1 % Normal BASO% 0.2 LAB L100.2550 0.0-0.9 % Normal IM GRAN % 0.200 Result Comment: IG% - Immature Granulocytes (promyelocytes, myelocytes and metamyelocytes) > 1% indicates that a LEFT SHIFT is Present. LAB L100.2620 2.0-7.7 X10 3/uL Normal Absolute Neut 7.4 LAB L100.2720 0.83-4.51 X10 3/ul Low Absolute Lymph 0.44 LAB L100.4500 Normal SMEAR COMMENT SCANNED Result Comment: LYMPHOPENIA NOTED Performed By: #### L100.0100 #### [facility] [place], [place], [address] BASIC METABOLIC Collected: 12/17/2017 Status: F Source: TRIMBLE PROFILE (BMP) 4:15 AM [facility] REPOSITORY TYPE CODE TESTS RESULT OUT OF RANGE REFERENCE UNITS LAB L501.0100 74-106 mg/dL High GLU 217 Result Comment: Glucose result greater than or equal to 200 mg/dL suggests DIABETES MELLITUS per A.D.A. criteria. Please note revised GLUCOSE reference range effective 2017. LAB L501.1000 7-18 mg/dL High BUN 19 LAB L501.1100 0.55-1.02 mg/dL Normal CREAT,SERUM 0.83 Result Comment: The validity of the calculated GFR AND GFRAA in patients over 70 years has not been determined. Clinical correlation is essential. LAB L501.1110 >60 mL/min Normal EST GFR 71 Result Comment: Non- GFR Calc LAB L501.1115 >60 mL/min Normal EST GFR - AA 86 Result Comment: GFR Calc LAB L501.1255 ml/min Normal Estimated CRCL 47.74 LAB L501.1300 10-20 RATIO High BUN/CRE 22.8 LAB L501.2200 8.5-10 mg/dL Low .1 CA 7.5 LAB L501.5300 136-14 mmol/L Normal 5 NA 140 LAB L501.5600 3.5-5. mmol/L Normal 1 K 4.1 LAB L501.5900 98-107 mmol/L Normal CL 105 LAB L501.6100 21.0-3 mmol/L Normal 2.0 CO2 25.0 LAB L501.6200 5-15 Normal GAP 10 Performed By: #### L500.2500 #### [facility] [address] [place], [address] LACTIC ACID Collected: 12/17/2017 Status: F Source: TRIMBLE 1:30 AM [facility] REPOSITORY Order Comment: Yes/No query for Sepsis Lactate Rule Y TYPE CODE TESTS RESULT OUT OF RANGE REFERENCE UNITS LAB L503.6005 0.4-2.0 mmol/L Normal LACTIC ACID 1.9 Performed By: #### L503.6005 #### [facility] [address] [place], [address] BEDSIDE GLUCOSE Collected: 12/17/2017 Status: F Source: YEHUDA 12:33 AM [facility] REPOSITORY TYPE CODE TESTS RESULT OUT OF REFERENCE UNITS RANGE LAB L501.080 70-110 mg/dL High BEDSIDE GLU 198 Result Comment: MANAGEMENT OF PATIENT CARE PER NURSING PROTOCOL Performed By: #### L501.080 #### [facility] Point of Care [address] [place] [address] CHEST 1 VIEW Observed: 12/17/2017 Status: F Source: YEHUDA (PORTABLE) 12:00 AM [facility] REPOSITORY [facility] Imaging Services [address] [place] [address] Chest 1 View (Portable) MR#: [id number] Acct: [id number] Name: ANTIONETTE WYNNE Rep #: [id number] : 1945 F 72 From: Donny Bee MD PCP: Mary Chang MD Status: ADM IN Study: Chest 1 View (Portable) Date of Exam: 12/17/17 Exam# [id number] Ordering Dr: Melony Gonzalez MD STUDY: X-RAY CHEST REASON FOR EXAM: Female, 72 years old. Scapular TECHNIQUE: 1 view COMPARISON: December 16, 2017 FINDINGS: There continues to be mild cardiomegaly with median sternotomy wires in place. There is no indication of acute pneumonia or failure but there is now seen blunting of the left costophrenic angle. It isn't on the right subclavian vein has its tip at the cavoatrial junction. An NG tube and ET tube identified with the ET tube now approximately 1 cm above the millie. The cerebellar may be due to the way the image was obtained Normal visualized thoracic spine. Normal visualized ribs, clavicles, and shoulders. There is no demonstrated abnormality of the visualized soft tissue structures of the upper abdomen. RAD/Chest 1 View (Portable) IMPRESSION: Moderate cardiomegaly. No failure. No pneumonia. Pleural reactive change in the left costophrenic angle Electronically Signed: Donny Bee, at 8:37 EDT Tel , Service support , CC: Mary Chang MD; Melony Gonzalez Green Building Architect: Signed BLOOD GASES BY CPS Collected: 12/16/2017 Status: F Source: TRIMBLE 11:55 PM [facility] REPOSITORY TYPE CODE TESTS RESULT OUT OF RANGE REFERENCE UNITS LAB L9000.9990 Normal BLD GAS TYPE ART LAB L9001.1000 Normal SITE R Radial LAB L9001.1010 Normal JESSI TEST NA LAB L9001.1048 Normal Mode A-C LAB L9001.1050 O2 Normal Delivery Dev Vent LAB L9001.1060 MV Normal 7.00 LAB L9001.1065 Vt Normal 450 LAB L9001.1070 RR Normal 16 LAB L9001.1074 Normal FI02 40 LAB L9001.1076 Normal PEEP 5 LAB L9001.1104 Normal Results To HOSP MD LAB L9001.1105 Normal Time Given 2349 LAB L9001.1110 7.35-7.45 pH Normal - I-STAT 7.41 LAB L9001.1210 35-45 mmHg Normal pCO2 - ISTAT 37.9 LAB L9001.1310 75-100 mmHG High PO2 I-STAT 103 LAB L9001.2300 22-26 mmol/L Normal HCO3 ISTAT 24.1 LAB L9001.2400 -2 to +2 mmol/L BE Normal ISTAT -1 LAB L9001.2415 mmol/L Normal TOTAL CO2 25 ISTAT LAB L9001.2425 95-99 % Normal SO2 ISTAT 98 Performed By: #### L9000.0800 #### [facility] Point of Care [address] [facility] [place] [address] HISTORY AND PHYSICAL Observed: 12/16/2017 Status: F Source: TRIMBLE EXAM 11:39 PM [facility] REPOSITORY [facility] Medical Records Department [address] [place] [address] History and Physical 12/16/17 2302 MR#: [id number] Acct: [id number] Name: ANTIONETTE WYNNE Rep #: [id number] : 1945 72 From: Melony Gonzalez MD PCP: Mary Chang MD Status: ADM IN Y Location: ICU ICU-1 Problem List (1) Asthma Status: Chronic Qualifiers: (2) Restrictive lung disease Status: Chronic (3) Paroxysmal atrial fibrillation Status: Chronic (4) Dilated cardiomyopathy Status: Chronic (5) 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 The patient is a 72 year old F with past medical history as mentioned above presented to the emergency room because of shortness of breath and respiratory distress. At this time, patient is intubated, sedated and on mechanical ventilation. Patient's and daughter were at the bedside and her provided brief history. According to the , patient has been complaining of shortness of breath and productive cough over the last 3 days. Her symptoms has been getting worse over the course of the last 3 days, she saw her doctor 2 years ago who prescribed erythromycin and prednisone. Her symptoms did not get any better and she continued to worsen. called the squad and she was brought to the emergency room. Reportedly, her pulse ox is quite was 64% on room air. According to her physician, patient was not able to communicate and was not alert because of respiratory distress. She was started on CPAP and shortly after, patient became more lethargic, pale with cool mottled skin. She was intubated and started on mechanical ventilation. At this time, she is febrile, heart rate has been around 90s, blood pressure is stable and she is on mechanical ventilation. She had a history of asthma and according to her , it is severe and she has been on inhalers in addition to nebulizer treatment at home. She never been on oxygen at home. She has history of paroxysmal atrial fibrillation and she has been on amiodarone and metoprolol for rate control as well as Eliquis for anti-coagulation. At this time, she is in sinus rhythm. She has history of CAD status post CABG and she has been on aspirin, beta-blockers. Her routine blood work is remarkable for leukocytosis, otherwise unremarkable. Troponin was negative. Lactic acid was 2.6. BNP was 261. Chest x-ray revealed cardiomegaly, obliteration of the left costophrenic angle without evidence of acute infiltrate, consolidation or effusion. EKG revealed sinus rhythm without evidence of acute ischemic changes, rate has been in the 90s. Blood cultures drawn in the ER and she received 1 dose of IV Levaquin and aztreonam in the ER. She is being admitted for acute hypoxic respiratory failure probably due to acute asthma exacerbation and possible community-acquired pneumonia. Past Medical History Past Medical History (Chronic Problems): Chronic Problems (Last Updated 12/16/17 @ 22:38 by Melony Gonzalez MD) 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 heart disease (ASHD) (Chronic) Asthma (Chronic) Restrictive lung disease (Chronic) Paroxysmal atrial fibrillation (Chronic) Nonrheumatic tricuspid valve regurgitation (Chronic) Dilated cardiomyopathy (Chronic) 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) HTN (hypertension) (Chronic) Diabetes mellitus (Chronic) HLD (hyperlipidemia) (Chronic) DM type 2 (diabetes mellitus, type 2) (Chronic) Hypogammaglobulinemia (Chronic) Morbid obesity (Chronic) Migraines (Chronic) BARTOLO (obstructive sleep apnea) (Chronic) CAD (coronary artery disease) (Chronic) Allergies Beta-Blockers (Beta-Adrenergic Bloc Allergy (Verified 12/16/17 20:27) Shortness of breath doxycycline Allergy (Verified 12/16/17 20:27) Hives Penicillins Allergy (Verified 12/16/17 20:27) Rash red dye Allergy (Verified 12/16/17 20:27) Unknown Sulfa (Sulfonamide Antibiotics) Allergy (Verified 12/16/17 20:27) Rash theophylline Allergy (Verified 12/16/17 20:27) Rash codeine Adverse Reaction (Verified 12/16/17 20:27) Nausea Home Medications: Ambulatory Orders Medication Instructions Recorded Budesonide/Formoterol 160/4.5 2 puff INHALATION BID PRN 11/09/15 [Symbicort 160/4.5 Mcg Inhaler (SP)] Montelukast [Singulair] 10 mg PO DAILY 11/09/15 Surgical History: cholecystectomy, coronary bypass surgery, hysterectomy Psychiatric History: No pertinent psych hx HOME HEALTH OUTREACH COORDINATOR History: No pertinent HOME HEALTH OUTREACH COORDINATOR history Lives: Spouse/ Significant Other Smoking Status: Never smoker Alcohol: None Drugs: None - *Family History Paternal History Items: Heart Disease Maternal History Items: Cancer Review of Systems Constitutional: Reports: - - Unobtainable, patient is intubated and sedated., - Eyes: Reports: - - Unobtainable, patient is intubated and sedated. HEENT: Reports: - - Unobtainable, patient is intubated and sedated. Cardiovascular: Reports: - - Unobtainable, patient is intubated and sedated. Respiratory: Reports: - - Unobtainable, patient is intubated and sedated. Gastrointestinal: Reports: - - Unobtainable, patient is intubated and sedated. Genitourinary: Reports: - - Unobtainable, patient is intubated and sedated. Musculoskeletal: Reports: - - Unobtainable, patient is intubated and sedated. Neurological: Reports: - - Unobtainable, patient is intubated and sedated. Psychiatric: Reports: - - Unobtainable, patient is intubated and sedated. VTE Information - Inpt Only VTE Present on Admission: No VTE Mechan Device Prophylaxis: SCD's VTE Pharm Prophylaxis ordered?: Yes - Physical Exam General: - - Intubated, sedated. HEENT: Atraumatic, PERRLA, EOMI Oral: Moist Mucosa, No Gingival or Mucosal Lesions/ Ulcerations Neck: Supple, No JVD, Negative Carotid Bruits, Trachea Midline, Thyroid Normal Size and Texture Lungs: Clear to auscultation, No rhonchi, No rales, Diminished, Wheezes Cardiovascular: Regular rate, Regular Rhythm, Normal S1, Normal S2, PMI Normal, Tachycardic Abdomen: Bowel Sounds Present, Soft, Non Tender, Non-Distended, No Hepato-splenomegaly, Obese Extremities: No clubbing, No cyanosis, No edema Skin: No rashes, No breakdown Lymphatic: No Cervical, Supraclavicular, or Inguinal Adenopathy Neurological: - - Unable to examine, patient is intubated and sedated. Psych/Mental Status: - - Unable to assess, patient is sedated. Vital Signs Temp Pulse Resp BP Pulse Ox 102.5 F H 94 16 111/99 H 97 12/16/17 22:33 12/16/17 22:33 12/16/17 22:33 12/16/17 22:33 12/16/17 22:33 Oxygen Delivery Method Mechanical Ventilator Weight: 226 lb 10.163 oz Body Mass Index (BMI) 35.4 Laboratory Tests Past 24 Hrs WBC RBC WBC RBC Hgb Hct MCV MCH Clinical Impression(s) from Imaging Studies Chest X-Ray 12/16/17 20:32 IMPRESSION: Cardiomegaly. No acute infiltrate. Electronically Signed: Eric Cole DO at 21:42 EDT , Service support , Chest X-Ray 12/16/17 20:42 IMPRESSION: The endotracheal tube terminates about 5.3 cm above the millie. A gastric tube extends into the upper abdomen. There is bibasilar atelectasis. Electronically Signed: Angie Jamison MD at 22:03 EDT Tel Direct: [phone], Service support , KUB X-Ray 12/16/17 20:55 IMPRESSION: The tip of the gastric tube is in the expected location of the antrum of the stomach. Electronically Signed: Angie Jamison MD at 22:06 EDT Tel Direct: [phone], Service support , Chest X-Ray 12/16/17 21:50 IMPRESSION: Right subclavian central line in place with the tip in the lower SVC. No pneumothorax. Endotracheal tube and NG tube remain in stable position. No acute infiltrate. Electronically Signed: Eric Cole DO at 22:51 EDT , Service support , Assessment/Plan This is a 72 years old female patient presented to the medicine because of significant shortness of breath and respiratory distress with pulse oximeter of 64% on room air, she was sleepy and lethargic which worsened shortly after arrival, intubated and started on mechanical ventilation for acute hypoxic respiratory failure which is probably due to acute asthma exacerbation versus possible early community acquired pneumonia. #1 acute hypoxic respiratory failure: Patient was on erythromycin and prednisone as outpatient for symptoms of productive cough and shortness of breath as well as wheezing. She has history of uncontrolled asthma according to the . She is not on home oxygen. Chest x-ray showed cardiomegaly and obliteration of the left costophrenic angle, no obvious infiltrate. She is in severe sepsis based on leukocytosis, acute respiratory failure and elevated lactic acid as well as probable source of infection. Blood cultures done, received 1 dose of IV Levaquin and aztreonam. ABG revealed pH of 7.28, PCO2 53 and PO2 of 85. Plan: Admit to ICU, continue same vent settings, ventilator care per protocol, continue IV propofol for sedation, urine culture, DuoNeb every 4 hours, IV Solu-Medrol, IV Levaquin, respiratory panel for viruses, critical care consult. #2 acute asthma exacerbation: Reportedly, patient had a history of asthma which seemed to be uncontrolled. In route to the hospital, pulse ox was 64% on room air. At this time, patient is intubated and on mechanical ventilation. Plan: Continue vent support, sedation, bronchodilators, IV steroids, IV antibiotics. #3 severe sepsis: This is probably secondary to severe hypoxia and suspected pneumonia. Lactic acid is elevated at 2.6. She is febrile with significant leukocytosis also she has been on steroids. Plan as above, blood culture, urine culture, IV antibiotics, repeat lactic acid in 3 hours, IV fluids. #4 suspected community acquired pneumonia: Chest x-ray reviewed, obliteration of the left costophrenic angle, pneumonia cannot be ruled out. Plan: IV Levaquin, follow blood and urine cultures, bronchodilators, repeat lactic acid in 3 hours. #5 paroxysmal atrial fibrillation: Rate has been stable in the 90s, blood pressure stable. Plan: IV amiodarone home dose, IV metoprolol 5 mg every 6 hours with holding parameters. Eliquis will be held. #6 CAD status post CABG: EKG reviewed, no acute ischemic changes. Troponin is negative. #7 type 2 diabetes mellitus: Keep on n.p.o., Accu-Cheks every 6 hours, insulin sliding scale. #8 hypertension: Blood pressure stable, IV metoprolol as above, hold all medications. #9 hypothyroidism: Hold levothyroxine for now. #10 DVT prophylaxis: Subcu Lovenox. Other chronic medical problems: #1 obstructive sleep apnea. #2 dilated cardiomyopathy. #3 restrictive lung disease. #4 migraine. This note was generated with Bookigeeation software. It may contain incorrect words, spelling, and punctuation that were not noted in checking the note before signing. Code Visit Inpatient E AND M: [id number] Init Hosp L3 12/16/17 2339 <Electronically signed by Melony Gonzalez MD> Date Melony Gonzalez MD Cosigner Signature: Date (if applicable) CC: Mary Chang MD; Melony Gonzalez Signed M R STAPH AUREUS Collected: 12/16/2017 Status: F Source: TRIMBLE DNA BY PCR 11:30 PM [facility] REPOSITORY Order Comment: Order Date: 12/16/17 TYPE CODE TESTS RESULT OUT OF RANGE REFERENCE UNITS LAB L8200.1100 Negative Normal MRSA Negative RESULT Performed By: #### L8200.1000 #### [facility] [address] [place] [address] Observed: 12/16/2017 Status: F Source: TRIMBLE RESPIRATORY PANEL 11:30 PM [facility] MOLECULAR REPOSITORY RP PANEL ADENOVIRUS Not Detected HUMAN METAPHNEUMO Not Detected INFLUENZA A Not Detected INFLUENZA A (SUBTYPE H1) Not Detected INFLUENZA A (SUBTYPE H3) Not Detected INFLUENZA B Not Detected PARAINFLUENZA 1 Not Detected PARAINFLUENZA 2 Not Detected PARAINFLUENZA 3 Not Detected PARAINFLUENZA 4 Not Detected RHINOVIRUS Not Detected RSV A Not Detected RSV B Positive for RSV B by NAAT technology NAAT METHOD Testing was performed using nucleic acid amplification ORGANISM 1: RSV B Performed By: #### M100.638 #### [facility] [address] [place] [address] [id number] EMERGENCY DEPARTMENT Observed: 12/16/2017 Status: F Source: YEHUDA SUMMARY 10:37 PM [facility] REPOSITORY [facility] Medical Records Department [address] [place] [address] Emergency Department Summary 12/16/17 2212 MR#: [id number] Acct: [id number] Name: ANTIONETTE WYNNE Mere Rep #: [id number] : 1945 72 From: Adam Carranza MD PCP: Mary Chang MD Status: REG ER ADDENDUM by Adam Carranza MD on 12/16/17 at 2237 Procedure note: I was informed that patient had a small 20- gauge needle in her wrist. A 7.5 Serbian triple-lumen was placed right subclavian. Hospital policy was adhered to with placement of central line. Everyone in room or a cap and mask. Patient was prepped and dressed in a sterile manner in accordance with hospital policy. The right subclavian vein was cannulated successfully on first attempt on the way in. Using Seldinger technique 7.5 Serbian triple-lumen was placed without difficulty. Blood was aspirated from all 3 ports. Chest x-ray was obtained and confirmed proper position. Date Adam Carranza MD cc: Michael Schmitt MD; Mary Chang MD * Signed - ER Visit Summary Date of Service: 12/16/17 Chief Complaint: Respiratory distress History of Present Illness: The patient is a 72 F was brought to the emergency department by ambulance. Pulse ox upon their arrival was 64%. She was slumped over and not very responsive. CPAP was applied. By the time she arrived her saturation was 96%. She was not alert and communication was limited because of her respiratory distress. was informed. He states the shortness of breath started several days ago. She did have a cough. She nodded yes to productive cough. She also nodded yes to chest pain. Unable to describe quality or severity of the chest pain. She nodded no to any radiation. Per old records and there is no history of PE or DVT. History was limited secondary to patient's severity of illness. Review of old records reveals past history of coronary disease, TN, asthma, hypertension, hypothyroidism, dilated cardiomyopathy and paroxysmal atrial fibrillation. Past surgical history remarkable for four-vessel bypass surgery 2-3 years ago and cataract surgery. states her trim attacher is Dr. Abraham Aburto. Physical Examination: Blood pressure 185/138, core temperature 102.6, heart rate 99, respiratory rate prior to intubation 52 and saturation of 95% on BiPAP. Blood gas was obtained and reveals acute respiratory failure with hypercapnia and hypoxia. Patient appears pale with cool mottled skin. Pupils are not really active or equal secondary to cataract surgery. TMs normal. Trachea midline. No carotid bruit. There is little to no air movement. Heart is regular. Abdomen is soft and nontender. No abdominal bruit was noted. Extremities were mottled and cool. There is no swelling of the lower extremities, discoloration or palpable cords. She is not alert and unable to assess orientation. She does move all extremities. Test Results: EKG was obtained also sinus rhythm rate of [address]-T wave changes. Portable x-ray #1 reveals rotation possible infiltrate right lower lobe. Portable x-ray #2 after intubation and OG placement reveals proper position of the endotracheal tube and OG tube and there is a difference noted right lower lobe consistent with an early infiltrate. Portable chest x-ray #3 reveals proper lying position of the right subclavian line with no evidence pneumothorax. White count is 16.7 thousand with no shift. BMP is remarkable for creatinine of 1.13 and glucose of 226. Urinalysis unremarkable. Troponin is less than 0.02. BNP is slightly of a 261. Lactate is 2.6. Emergency Department Course and Treatment: Blood gas was obtained to assess patient's acid-base status. After reviewing the results and noting patient has deteriorated she was prepped for oral tracheal intubation by RSI technique. A 7.5 Serbian endotracheal tube was placed without difficulty. Breath sounds were noted bilaterally and wheezing are noted bilaterally. There is appropriate color change on the capnometer. An orogastric tube was placed by me. Because of penicillin allergy and unable to asked patient what type of reaction she had she was treated with 750 mg levofloxacin IV piggyback and 2 g of Azactam. Treatment Plan: Patient has severe sepsis if lactate is greater than 4 by definition she has septic shock and will receive a 30 cc/kg bolus of normal saline. 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 Disposition: Admit to critical condition to the ICU Impression: 1. Acute respiratory failure with hypercapnia and hypoxia 2. Severe sepsis 3. Community acquired pneumonia 4. Hyperglycemia and type II diabetic 5. History of coronary disease 6. History of hypertension 7. History of dilated cardiomyopathy 8. History of hypothyroidism This note was generated with Bookigeeation software. It may contain incorrect words, spelling, and punctuation that were not noted in review of the chart prior to signing ED Disposition - Plan for ED Patient: Chief Complaint: Shortness of Breath Referrals: Mary Chang MD [Primary Care Provider] - What to do if you have Problems For any increased pain, shortness of breath, bleeding, nausea or vomiting, chest pain, or any unexpected problems, contact your Primary Care Provider. Call [facility] ([phone]) or report to the closest Emergency Room. Call 911 if necessary. 12/16/172233 <Electronically signed by Adam Carranza MD> Date Adam Carranza MD Cosigner Signature (If Indicated): Date CC: Michael Schmitt MD; Mary Chang MD PROTHROMBIN TIME W/INR Collected: 12/16/2017 Status: F Source: YEHUDA 9:50 PM [facility] REPOSITORY TYPE CODE TESTS RESULT OUT OF RANGE REFERENCE UNITS LAB L300.4150 11.7-14.9 SECONDS Normal PROTIME 14.8 LAB L300.4200 Normal INR 1.2 Performed By: #### L300.3900, L300.4310 #### [facility] [address] [place], [place], [id number] PARTIAL THROMBOPLAST Collected: 12/16/2017 Status: F Source: YEHUDA TIME 9:50 PM [facility] REPOSITORY TYPE CODE TESTS RESULT OUT OF REFERENCE UNITS RANGE LAB L300.4310 24.1-36.2 Seconds Low PTT 22.8 Performed By: #### L300.3900, L300.4310 #### [facility] [address] [place], [place], [id number] LACTIC ACID Collected: 12/16/2017 Status: F Source: YEHUDA 9:50 PM [facility] REPOSITORY Order Comment: Yes/No query for Sepsis Lactate Rule Y TYPE CODE TESTS RESULT OUT OF REFERENCE UNITS RANGE LAB L503.6005 0.4-2.0 mmol/L High LACTIC ACID 2.6 Result Comment: Critical Result(s) Called at: 22:32:49 12/16/2017 by: Gibran Everett to dr. carranza Performed By: #### L503.6005 #### [facility] [address] [facility] [place], [place], [address] Observed: 12/16/2017 Status: F Source: TRIMBLE CULTURE, BLOOD (WB) 9:50 PM [facility] REPOSITORY BC No growth in 5 days. Performed By: #### M200.1000 #### [facility] [address] [place], [place], [address] CXR FOR LINE PLACEMENT Observed: 12/16/2017 Status: F Source: YEHUDA 9:47 PM [facility] REPOSITORY [facility] Imaging Services [address] [place] [address] CXR for Line Placement MR#: [id number] Acct: [id number] Name: ANTIONETTE WYNNE Rep #: [id number] : 1945 F 72 From: Eric Cole PCP: Mary Chang MD Status: ADM IN Study: CXR for Line Placement Date of Exam: 12/16/17 Exam# [id number] Ordering Dr: Adam Carranza MD STUDY: X-RAY CHEST REASON FOR EXAM: Female, 72 years old. Central line placement TECHNIQUE: Single AP portable view of the chest. COMPARISON: 12/16/2017. FINDINGS: Endotracheal tube remains in place with the tip 6 cm above the millie at the thoracic inlet. NG tube tip remains in the stomach. Right subclavian central line in place with the tip in the lower SVC. EKG lead overlying the chest. The lungs are clear and expanded. There is no demonstrated pleural abnormality. Normal size heart. Patient status post sternotomy. Normal mediastinum and mariam. Normal visualized pulmonary arteries. Normal visualized aortic arch and descending thoracic aorta. Normal visualized thoracic spine. Normal visualized ribs, clavicles, and shoulders. There is no demonstrated abnormality of the visualized soft tissue structures of the upper abdomen. RAD/CXR for Line Placement IMPRESSION: Right subclavian central line in place with the tip in the lower SVC. No pneumothorax. Endotracheal tube and NG tube remain in stable position. No acute infiltrate. Electronically Signed: Eric Cole DO at 22:51 EDT , Service support , CC: Mary Chang MD; Adam Carranza MD Green Building Architect: Signed URINALYSIS, COMPLETE Collected: 12/16/2017 Status: F Source: YEHUDA 9:25 PM [facility] REPOSITORY Order Comment: Order Date: 12/16/17 How was Urine Obtained? CATHETER SPECIMEN TYPE CODE TESTS RESULT OUT OF RANGE REFERENCE UNITS LAB L400.3000 Yellow COLOR Normal Yellow LAB L400.3050 Clear Normal CLARITY Sl. Cloudy LAB L400.3200 Normal mg/dl High GLUCOSE, UR 100 LAB L400.3300 Negative mg/dL Normal BILIRUBIN URINE Negative LAB L400.3400 Negative mg/dl Normal KETONE UR Negative LAB L400.3465 1.002-1.030 Normal SP.GR. DIPSTX 1.025 LAB L400.3550 5.0 - 8.0 pH UR Normal 6.0 LAB L400.3600 Negative mg/dl High PROT DIPSTX 100 LAB L400.3700 Normal mg/dl Normal UROBILI Normal LAB L400.3750 Negative Normal NITRITE UR Negative LAB L400.3780 Negative /ul High OCCULT BLOOD-UR 150 LAB L400.3800 Negative /ul LEUK Normal ESTERASE Negative LAB L400.4050 0-5 /hpf WBC Normal 5-10 SEEN LAB L400.4100 0-5 /hpf Normal RBC-UA 0-5 SEEN LAB L400.4150 5-10 /hpf SQUAM 0 Normal EPI SEEN LAB L400.4300 None Seen /hpf 0 Normal BACTERIA SEEN LAB L400.4350 <or=2+ /hpf 0 Normal MUCUS, URINE SEEN LAB L400.4900 2+ Normal AMORPHOUS Performed By: #### L400.0001 #### [facility] [address] [place], [address] Observed: 12/16/2017 Status: F Source: YEHUDA CULTURE, URINE 9:25 PM [facility] REPOSITORY Urine Culture Culture exhibits no growth. Performed By: #### M100.0650 #### [facility] [address] [facility] [address] [place], [place], [address] CHEST 1 VIEW Observed: 12/16/2017 Status: F Source: YEHUDA (PORTABLE) 8:43 PM [facility] REPOSITORY [facility] Imaging Services [address] [place] [address] Chest 1 View (Portable) MR#: [id number] Acct: [id number] Name: ANTIONETTE WYNNE Rep #: [id number] : 1945 F 72 From: Angie Jamison MD PCP: Mary Chang MD Status: REG ER Study: Chest 1 View (Portable) Date of Exam: 12/16/17 Exam# [id number] Ordering Dr: Adam Carranza MD STUDY: X-RAY CHEST REASON FOR EXAM: Female, 72 years old. Intubation TECHNIQUE: A single frontal view of the chest was obtained. COMPARISON: Chest radiograph from the same day FINDINGS: An endotracheal tube terminates about 5.3 cm above the millie. A gastric tube extends into the upper abdomen. The lungs are adequately aerated. There are minimal increased markings in both lung bases. There is no demonstrated pleural abnormality. The cardiac silhouette is normal in size. The mediastinum and hilar regions are unremarkable. Normal visualized pulmonary arteries. There is atherosclerotic calcification of the thoracic aorta. Sternotomy wires and plates are present. There are diffuse degenerative changes of the visualized spine. There are degenerative changes in both shoulders. There is no demonstrated abnormality of the visualized upper abdomen. RAD/Chest 1 View (Portable) IMPRESSION: The endotracheal tube terminates about 5.3 cm above the millie. A gastric tube extends into the upper abdomen. There is bibasilar atelectasis. Electronically Signed: Angie Jamison MD at 22:03 EDT Tel Direct: [phone], Service support , CC: Mary Chang MD; Adam Carranza MD Green Building Architect: Signed ABDOMEN SINGLE VIEW Observed: 12/16/2017 Status: F Source: TRIMBLE (PORTABLE) 8:43 PM [facility] REPOSITORY [facility] Imaging Services [address] [place] [address] Abdomen Single View (Portable) MR#: [id number] Acct: [id number] Name: ANTIONETTE WYNNE Rep #: [id number] : 1945 F 72 From: Angie Jamison MD PCP: Mary Chang MD Status: REG ER Study: Abdomen Single View (Portable) Date of Exam: 12/16/17 Exam# [id number] Ordering Dr: Adam Carranza MD STUDY: X-RAY - ABDOMEN/PELVIS REASON FOR EXAM: Female, 72 years old. Gastric tube placement TECHNIQUE: A single AP view of the abdomen and pelvis was obtained. COMPARISON: CT abdomen and pelvis dated June 13, 2016 FINDINGS: There is minimal atelectasis in the lung bases. A gastric tube extends into the mid abdomen. There is an unremarkable bowel gas pattern. There is no demonstrated free abdominal air. There is no demonstrated abnormality of the major organs. Cholecystectomy clips are present. The soft tissues are unremarkable. There are mild degenerative changes in the visualized spine. RAD/Abdomen Single View (Portable) IMPRESSION: The tip of the gastric tube is in the expected location of the antrum of the stomach. Electronically Signed: Angie Jamison MD at 22:06 EDT Tel Direct: [phone], Service support , CC: Mary Chang MD; Adam Carranza MD Green Building Architect: Signed BLOOD GASES BY CPS Collected: 12/16/2017 Status: F Source: YEHUDA 8:39 PM [facility] REPOSITORY TYPE CODE TESTS RESULT OUT OF RANGE REFERENCE UNITS LAB L9000.9990 Normal BLD GAS TYPE ART LAB L9001.1000 Normal SITE L Radial LAB L9001.1010 Normal JESSI TEST POS LAB L9001.1050 O2 Normal Delivery Dev Bi / C PAP LAB L9001.1070 RR Normal 12 LAB L9001.1074 Normal FI02 40 LAB L9001.1088 Normal IPAP 18 LAB L9001.1090 Normal EPAP 7 LAB L9001.1104 Normal Results To ED LAB L9001.1105 Normal Time Given 2034 LAB L9001.1110 7.35-7.45 Low pH - I-STAT 7.28 LAB L9001.1210 35-45 mmHg High pCO2 - ISTAT 53.1 LAB L9001.1310 75-100 mmHG Normal PO2 I-STAT 85 LAB L9001.2300 22-26 mmol/L Normal HCO3 ISTAT 24.7 LAB L9001.2400 -2 to +2 mmol/L BE Normal ISTAT -2 LAB L9001.2415 mmol/L Normal TOTAL CO2 26 ISTAT LAB L9001.2425 95-99 % Normal SO2 ISTAT 95 Performed By: #### L9000.0800 #### [facility] Point of Care [address] [place], [place] [address] Observed: 12/16/2017 Status: F Source: YEHUDA CULTURE, BLOOD (WB) 8:38 PM [facility] REPOSITORY BC No growth in 5 days. Performed By: #### M200.1000 #### [facility] [address] [place], [place], [address] CBC W/DIFF, AUTOMATED Collected: 12/16/2017 Status: C Source: YEHUDA 8:34 PM [facility] REPOSITORY TYPE CODE TESTS RESULT OUT OF RANGE REFERENCE UNITS LAB L100.1000 4.4-11.0 K/mm3 High WBC 16.7 LAB L100.1200 4.2-5.4 M/mm3 Normal RBC 5.38 LAB L100.1300 12.0-15.0 g/dl High HGB 15.9 LAB L100.1400 37-47 % High HCT 47.4 LAB L100.1500 81-99 fL Normal MCV 88.1 LAB L100.1600 27.0-32.0 pg Normal MCH 29.6 LAB L100.1700 32-36 g/gl Normal MCHC 33.5 LAB L100.1810 11.6-14.6 % Normal RDW CV 13.7 LAB L100.1820 35.1-43.9 fl Normal RDW SD 43.6 LAB L100.1900 150-450 K/mm3 Normal PLT 362 LAB L100.2000 6.2-12.0 fl Normal MPV 10.6 LAB L100.2100 47-70 % Normal NEUT% 61.0 LAB L100.2200 19-41 % Normal LY% 19.0 LAB L100.2300 0-10 % High MONO% 18.7 LAB L100.2400 0-5 % Normal EO% 0.3 LAB L100.2500 0-1 % Normal BASO% 0.5 LAB L100.2550 0.0-0.9 % Normal IM GRAN % 0.500 Result Comment: IG% - Immature Granulocytes (promyelocytes, myelocytes and metamyelocytes) > 1% indicates that a LEFT SHIFT is Present. LAB L100.2620 2.0-7.7 X10 3/uL High Absolute Neut 10.2 LAB L100.2720 0.83-4.51 X10 3/ul Normal Absolute Lymph 3.18 LAB L100.4500 Normal SMEAR COMMENT Result Comment: MONOCYTOSIS NOTED LAB L100.4700 Normal 1+ REACTIVE LYMPH LAB L100.9900 Normal PATH REV Reviewed Result Comment: Leukocytosis. Clinical correlation necessary. Abimael Chan M.D. 12/19/17 Pathologist comment added AMENDED REPORT 12/19/17 8964 PATH REV previously reported as: Samantha canales Performed By: #### L100.0100 #### [facility] [address] [place], [address] BASIC METABOLIC Collected: 12/16/2017 Status: F Source: YEHUDA PROFILE (BMP) 8:34 PM [facility] REPOSITORY Order Comment: 'TROP' Serial specimen #1, #2, #3, or #4: 1 TYPE CODE TESTS RESULT OUT OF RANGE REFERENCE UNITS LAB L501.0100 74-106 mg/dL High GLU 226 Result Comment: Glucose result greater than or equal to 200 mg/dL suggests DIABETES MELLITUS per A.D.A. criteria. Please note revised GLUCOSE reference range effective 2017. LAB L501.1000 7-18 mg/dL Normal BUN 16 LAB L501.1100 0.55-1.02 mg/dL High CREAT,SERUM 1.13 Result Comment: The validity of the calculated GFR AND GFRAA in patients over 70 years has not been determined. Clinical correlation is essential. LAB L501.1110 >60 mL/min Low EST GFR 50 Result Comment: Non- GFR Calc LAB L501.1115 >60 mL/min Normal EST GFR - AA 61 Result Comment: GFR Calc LAB L501.1255 ml/min Normal Estimated CRCL 43.12 LAB L501.1300 10-20 RATIO Normal BUN/CRE 14.2 LAB L501.2200 8.5-10 mg/dL Normal .1 CA 8.5 LAB L501.5300 136-14 mmol/L Normal 5 NA 138 LAB L501.5600 3.5-5. mmol/L Normal 1 K 4.4 LAB L501.5900 98-107 mmol/L Normal CL 100 LAB L501.6100 21.0-3 mmol/L Normal 2.0 CO2 29.0 LAB L501.6200 5-15 Normal GAP 9 Performed By: #### L500.2500, L501.4010 #### [facility] [address] [place], [place], [address] TROPONIN-I Collected: 12/16/2017 Status: F Source: YEHUDA 8:34 PM [facility] REPOSITORY Order Comment: 'TROP' Serial specimen #1, #2, #3, or #4: 1 TYPE CODE TESTS RESULT OUT OF RANGE REFERENCE UNITS LAB L501.4010 <0.06 ng/mL Normal < 0.02 TROPONIN-I Result Comment: TROPONIN-I EXPECTED VALUES <0.05 NEGATIVE 0.06 - 0.59 AT RISK OF TN > OR = 0.60 SUGGEST TN Performed By: #### L500.2500, L501.4010 #### [facility] [address] [place], [address] BNP,B-TYPE NATRIURETIC Collected: 12/16/2017 Status: F Source: TRIMBLE PEPTIDE 8:34 PM [facility] REPOSITORY TYPE CODE TESTS RESULT OUT OF RANGE REFERENCE UNITS LAB L503.6620 0-100 pg/mL High B-TYPE 261.8 ALTHEA PEP Performed By: #### L503.6620 #### [facility] [address] [facility] [place], [address] CHEST 1 VIEW Observed: 12/16/2017 Status: F Source: YEHUDA (PORTABLE) 8:28 PM [facility] REPOSITORY [facility] Imaging Services [address] [place] [address] Chest 1 View (Portable) MR#: [id number] Acct: [id number] Name: ANTIONETTE WYNNE Rep #: [id number] : 1945 F 72 From: Eric Cole [facility] Status: REG ER Study: Chest 1 View (Portable) Date of Exam: 12/16/17 Exam# [id number] Ordering Dr: Adam Carranza MD STUDY: X-RAY CHEST REASON FOR EXAM: Female, 72 years old. Shortness of breath TECHNIQUE: Single AP portable view of the chest. COMPARISON: 03/26/2017. FINDINGS: The lungs are clear and expanded. There is no demonstrated pleural abnormality. There is mild cardiac enlargement. Patient status post sternotomy. Normal mediastinum and mariam. Normal visualized pulmonary arteries. Normal visualized aortic arch and descending thoracic aorta. Normal visualized thoracic spine. Normal visualized ribs, clavicles, and shoulders. There is no demonstrated abnormality of the visualized soft tissue structures of the upper abdomen. RAD/Chest 1 View (Portable) IMPRESSION: Cardiomegaly. No acute infiltrate. Electronically Signed: Eric Cole DO at 21:42 EDT , Service support , CC: Mary Chang MD; Adam Carranza MD Green Building Architect: Signed Observed: 12/13/2017 Status: F Source: TRIMBLE CULTURE, SPUTUM 2:00 PM [facility] REPOSITORY Gram Stain Acceptable Specimen? Yes (<25 Epithelial cells per/lpf) Gram Stain 4+ White Blood Cells 3+ Gram positive cocci Rare Epithelial cells Resp. Culture Mixed normal respiratory gabi. No Haemophilus, Streptococcus pneumoniae, beta-hemolytic Streptococcus or Staphylococcus aureus isolated. Performed By: #### [id number] #### [facility] [address] [place] [address]. [place], [place], [address] PULMONARY VISIT REPORT Observed: 12/13/2017 Status: F Source: [place] 1:29 PM [facility] REPOSITORY Pulmonary Medicine of [address] [place], [place] [address] OFFICE VISIT Date of Service: 12/13/17 MR#: [id number] Acct: [id number] Name: ANTIONETTE WYNNE Rep #: [id number] : 1945 Provider: Rosaline Sheikh Age/Sex: 72/F [facility] Status: Signed Assessment AND Plan Problems 1. Mild intermittent asthma, unspecified whether complicated J45.20 Status Chronic Plan Agreeable to starting a prednisone burst, ordered sputum culture due to immune status and multiple allergies. Continue with nebulizer treatments at home at least twice daily, albuterol inhaler as needed for shortness of breath, and throat lozenges. Will follow up in 2 weeks. Encouraged to call office with new or worsening symptoms. Orders Orders: Medications New: Plan Detail Follow Up 2 Weeks ([facility]) HPI Not feeling well: Chief Complaint: cough HPI Comments Details: Started last week with productive cough that is both thick and yellow. Wheezing, shortness of breath, especially with exertion and chest tightness. Sinus congestion, migraine headaches, nasal drainage that is thin and clear to yellow. She also complains of green nasal drainage. She is reporting body aches and fatigue. Throat feels swollen with horse voice. Using nebulizer twice a day, albuterol inh. 2 puffs 2-3 times per day which helps initially and then worsens again. Also using cough drops which made her throat feel better. No fevers, chills, ear ache, watery or itchy eyes, chest pain, palpitations, nausea or vomiting, constipation or diarrhea. Intake Vital Signs12/13/17 Height 5 ft 2 in 12/13/17 Weight: 204 lb Intake Visit Reasons: Not feeling well Chief Complaint: shortness of breath Accompanied by: Self Allergies Beta-Blockers (Beta-Adrenergic Bloc Allergy (Verified 12/13/17 10:34) Shortness of breath doxycycline Allergy (Verified 12/13/17 10:34) Hives Penicillins Allergy (Verified 12/13/17 10:34) Rash red dye Allergy (Verified 12/13/17 10:34) Unknown Sulfa (Sulfonamide Antibiotics) Allergy (Verified 12/13/17 10:34) Rash theophylline Allergy (Verified 12/13/17 10:34) Rash codeine Adverse Reaction (Verified 12/13/17 10:34) Nausea Medications Budesonide/Formoterol 160/4.5 [Symbicort 160/4.5 Mcg Inhaler (SP)] 2 puff INHALATION BID PRN 11/09/15 [History Confirmed 10/21/17] Montelukast [Singulair] 10 mg PO DAILY 11/09/15 [History Confirmed 10/21/17] Acetaminophen [Tylenol Tablet] 650 mg PO Q8H PRN PRN #0 tab 12/04/15 [Rx Confirmed 10/21/17] Furosemide [Lasix] 20 mg PO DAILY #30 tab 12/04/15 [Rx Confirmed 10/21/17] Acetaminophen/Butalbital/Caffe [Fioricet] 1 tab PO Q6H PRN PRN 03/26/17 [History Confirmed 10/21/17] Ezetimibe [Zetia] 10 mg PO QHS 03/26/17 [History Confirmed 10/21/17] Metoprolol Tartrate [Lopressor (beta sara)] 6.25 mg PO BID 03/26/17 [History Confirmed 10/21/17] Potassium Chloride [K-Dur] 20 meq PO TID 03/26/17 [History Confirmed 10/21/17] Aspirin E.C. [Ecotrin] 81 mg PO DAILY@0800 #60 tab 03/28/17 [Rx Confirmed 10/21/17] Carvedilol [Coreg (Beta Sara)] 6.25 mg PO BID #60 tab 03/28/17 [Rx Confirmed 10/21/17] Furosemide [Lasix] 20 mg PO DAILY #60 tab 03/28/17 [Rx Confirmed 10/21/17] Potassium Chloride [K-Dur] 20 meq PO TID #90 tab 03/28/17 [Rx Confirmed 10/21/17] apixaban 5 mg tablet 5 mg PO BID #180 tab 08/19/17 [Rx Confirmed 10/21/17] amiodarone 200 mg tablet 100 mg PO QDAY tab 08/22/17 [History Confirmed 10/21/17] albuterol sulfate HFA 90 mcg/actuation aerosol inhaler 2 puff INHALATION Q4H PRN #1 device 09/08/17 [Rx Confirmed 10/21/17] benzonatate 100 mg capsule 100 mg PO Q6H 10/19/17 [History Confirmed 10/21/17] fluticasone 50 mcg/actuation nasal spray,suspension 50 mcg INTRANASAL BID PRN 10/19/17 [History Confirmed 10/21/17] guaifenesin ER 600 mg tablet, extended release 12 hr 600 mg PO Q12H PRN 10/19/17 [History Confirmed 10/21/17] cyclobenzaprine 5 mg tablet 5 mg PO TID PRN #10 tab 10/21/17 [Rx Confirmed 10/21/17] levalbuterol 0.63 mg/3 mL solution for nebulization 0.63 mg INHALATION Q4H PRN #120 vial 10/28/17 [Rx] levothyroxine 50 mcg tablet 50 mcg PO QDAY #90 tab 12/02/17 [Rx] prednisone 20 mg tablet 60 mg PO QDAY #15 tab 12/13/17 [Rx Confirmed 12/13/17] [facility] Medical History Arteriosclerotic heart disease (ASHD) (Chronic) Acute TN, subendocardial (Acute) Acute systolic (congestive) heart failure (Chronic) Acute bronchitis (Acute) Wheezing (Chronic) Cough productive of purulent sputum (Chronic) Night sweats (Chronic) 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) Asthma (Chronic) Restrictive lung disease (Chronic) Hypokalemia (Chronic) Shortness of breath (Chronic) Headache (Chronic) Paroxysmal atrial fibrillation (Chronic) Nonrheumatic tricuspid valve regurgitation (Chronic) Body mass index (BMI) of 40.0-44.9 in adult (Chronic) Dilated cardiomyopathy (Chronic) 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) HTN (hypertension) (Chronic) Diabetes mellitus (Chronic) HLD (hyperlipidemia) (Chronic) Dyspnea (Chronic) DM type 2 (diabetes mellitus, type 2) (Chronic) Hypogammaglobulinemia (Chronic) Morbid obesity (Chronic) Migraines (Chronic) BARTOLO (obstructive sleep apnea) (Chronic) CAD (coronary artery disease) (Chronic) Atrial fibrillation with rapid ventricular response (Acute) Chest pain (Acute) Surgical History History of cataract extraction (Resolved) History of coronary artery bypass graft x 3 (Resolved) History of cholecystectomy (Resolved) History of partial hysterectomy (Resolved) Family History Father CAD (coronary artery disease) Social History Smoking Status: Never smoker second hand exposure: No alcohol intake: never substance use type: does not use caffeine: Yes Type: coffee what type of physical activity do you participate in: running, walking frequency: 3-4 times per week Review of Systems Const CONSTITUTIONAL: Positive body ache and fatigue; negative anorexia, chills, daytime sleepiness, fever(s), night sweats, oral thrush, stops breathing during sleep, weight loss, sleeping in chair, weight loss, weight gain, frequent colds, seasonal allergies, other, headache(s) or orthopnea EETM Ear Nose Throat Mouth: Positive hearing normal, nasal congestion, nasal discharge, sinus pain and sinus pressure; negative hard of hearing, hoarseness, dry mouth in morning, change in vision, itchy eyes, eye pain, swallowing Difficulty, ear pain, nose bleed, headache(s), mouth pain, post nasal drip, sore throat or other Cardio Cardiovascular: Negative chest pain, chest pain at rest, chest pain with activity, irregular heart rhythm, edema, shortness of breath when lying down, palpitations, murmur or other Resp Respiratory: Positive as per HPI, shortness of breath shortness of breath: Positive with activity and worsening, wheezing, chest congestion, cough cough: Positive productive color: Positive yellow and chest tightness; negative pain with cough, pain on inspiration, inhalers, increase use of rescue inhalers, snoring, apnea or other Gastro Gastrointestional: Negative bloody stools, change in appetite, difficulty swallowing, reflux, hematemesis, melena stool, loose stool, constipation or other Genitourinary: Negative blood in urine, nocturia, pain with urination or other Musc Musculoskeletal: Negative body pain, back pain, neck pain or other Skin/Breast Skin/Breast: Negative dry skin, itching, rash, unusual bruising, breast lump or other Neuro Neurological: Negative restless legs, confusion, weakness or other Psych Psychocological: Negative abnormal sleep pattern, anxiety, thoughts of hurting self/others, hopelessness or other Lymph Lymphatic: Negative easy bleeding, easy bruising, swollen lymph nodes or other Exam Const Constitutional: Positive conversant, in no acute respiratory distress, cooperative, well developed, well nourished, ill appearing, good hygiene and obese Head Head: Positive normocephalic; negative cyanosis of lips/distal nose or atraumatic Eyes Eye: Positive clear conjunctiva; negative nystagmus or scleral abnormality Ears Ear: Positive hearing normal and external ears normal; negative hard of hearing Nose Nose: Positive clear nasal discharge, external nose normal and septum normal; negative epistaxis Mouth Mouth: Positive oral mucosae normal, posterior oropharynx is adequate and no lesions; negative post nasal drip, malodorous breath or oral thrush present Mallampati Score: II: Mallampati Score Neck Neck: Positive trachea midline, normal visual inspection and full ROM; negative lymphadenopathy Chest Wall Chest: Positive symmetric chest movement and normal inspection of the chest; negative increased A/P diameter Resp lung sounds: Positive good air exchange, wheezes (expiratory) wheezing: Positive bilateral, upper and lower, wheeze present on forced exhalation, normal expiratory time and increased work of breathing; negative rales, dullness to percussion or use of accessory muscles Cardio Cardiac: Positive regular rate, regular rhythm, S1 normal and S2 normal; negative murmur GI GI: Positive normal to inspection and obese; negative distended Genitourinary: Positive deferred Musc Musculoskeletal: Positive steady gait and ROM normal; negative kyphosis or scoliosis Skin Pulmonary Skin Exam: Positive intact; negative rash, lesion, ulcers, erythema, scaly or dermal atrophy Pulses Pulse: Yes radial pulses present Extremities Extremities: No edema, Yes capillary refill normal, No clubbing, No cyanosis, No stasis dermatitis Neuro Neurologic: Yes conversant, Yes no focal neuro deficits, Yes cooperative, Yes normal cognition, Yes normal coordination, Yes normal concentration, Yes understands questions Lymph Lymphatic: No lymphadenopathy, No tenderness, No cervical adenopathy, No axillary adenopathy Psych Appearance: Positive grossly normal Mental Status: Positive mental status grossly normal Mood: Positive congruent mood Affect: Positive normal affect Coding Level of Care Code Off vis,est,level 3 Diagnoses Mild intermittent asthma, unspecified whether complicated J45.20 Asthma severity: mild Asthma persistence: intermittent Asthma complication type: unspecified 12/13/17 1329 <Electronically signed by Rosaline DOOLEY> Date Rosaline DOOLEY Cosigner Signature: Date (if applicable) CC: Mary Chang MD LIVER PROFILE Collected: 11/24/2017 Status: F Source: [place] 9:45 AM [facility] REPOSITORY Order Comment: Order Date: 05/13/17 Order Info: [id number] - *Hepatic Function Panel Order Info: [id number] - *Lipid Profile CC PCP Comments: 12 hours fasting, may have water. Add on: T4 Total AND TSH for Paty Mullen TYPE CODE TESTS RESULT OUT OF RANGE REFERENCE UNITS LAB L501.1500 6.4-8.2 g/dL Normal T PROT 7.2 LAB L501.1800 3.2-5.0 g/dL Normal ALB 3.5 LAB L501.1950 2.2-4.2 g/dL Normal GLOB 3.7 LAB L501.4100 15-37 U/L Normal AST 16 LAB L501.4305 45-117 U/L Normal ALK P 92 LAB L501.4405 13-56 U/L Normal ALT 19 Result Comment: Please note revised ALT reference range effective 2017. LAB L501.4600 0.20-1.00 mg/dL Normal T BILI 0.60 LAB L501.4700 0.00-0.30 mg/dL Normal D BILI 0.10 Performed By: #### L500.3400 #### [facility] [address] [place], [place], [address] LIPID PROFILE Collected: 11/24/2017 Status: F Source: [place] 9:45 AM [facility] REPOSITORY Order Comment: Order Date: 05/13/17 Order Info: [id number] - *Hepatic Function Panel Order Info: [id number] - *Lipid Profile CC PCP Comments: 12 hours fasting, may have water. Add on: T4 Total AND TSH for Paty Mullen TYPE CODE TESTS RESULT OUT OF RANGE REFERENCE UNITS LAB L501.4900 200 mg/dL High CHOL 258 Result Comment: <200 mg/dL Desirable 200-240 mg/dL Borderline >240 mg/dL High Risk LAB L501.5000 mg/dL High TRIG 283 Result Comment: The drugs N-Acetylcysteine and Metamizole may falsely depress this assay. Serum Triglycerides Reference Interval Normal <150 mg/dL Borderline high 150 - 199 mg/dL High 200 - 499 mg/dL Very High > or = 500 mg/dL LAB L501.6400 mg/dL Normal HDL 53 Result Comment: The drugs N-Acetylcysteine and Metamizole may falsely depress this assay. Reference Range HDL <40 mg/dL Low HDL Cholesterol HDL >or= 60 mg/dL High HDL Cholesterol LAB L501.6500 0-130 mg/dL High LDL 148 LAB L501.6600 5-40 mg/dL High VLDL 57 Performed By: #### L500.4100 #### [facility] [address] [place], [address] T4 TOTAL, THYROXIN Collected: 11/24/2017 Status: F Source: [place] 9:45 AM [facility] REPOSITORY Order Comment: Order Date: 05/13/17 Order Info: [id number] - *Hepatic Function Panel Order Info: [id number] - *Lipid Profile CC PCP Comments: 12 hours fasting, may have water. Add on: T4 Total AND TSH for Paty Mullen TYPE CODE TESTS RESULT OUT OF REFERENCE UNITS RANGE LAB L501.9310 4.8-13.9 ug/dL T4 High THYROXIN 14.0 Performed By: #### L501.9310, L501.9520 #### [facility] [address] [place], [place], [address] THYROID STIM HORMONE Collected: 11/24/2017 Status: F Source: [place] (TSH) 9:45 AM [facility] REPOSITORY Order Comment: Order Date: 05/13/17 Order Info: [id number] - *Hepatic Function Panel Order Info: [id number] - *Lipid Profile CC PCP Comments: 12 hours fasting, may have water. Add on: T4 Total AND TSH for Paty Mullen TYPE CODE TESTS RESULT OUT OF RANGE REFERENCE UNITS LAB L501.9520 0.358-3.74 uIU/mL High TSH 4.05 Performed By: #### L501.9310, L501.9520 #### [facility] [address] [place], [place], [address] PROGRESS Observed: 11/09/2017 Status: COMPLETED Source: [place] 11:50 AM [facility] REPOSITORY O ID: [id number] Author: Mary Chang Service: (none) Author Type: Physician Type: Progress Notes Filed: 11/09/2017 8:19 PM Note Text: Reason for Visit Patient presents with: Established Patient: 3 month follow up-refills Antionette Wynne is a 72 year old female who presents here today for Above Complaints.. Health Maintenance COLORECTAL CANCER SCREENING,SEE MODIFIER MAMMOGRAM HPI Eyelid surgery completed which Helps her peripheral vision, she can drive now. Has a rash under her breast area, and belly area and would need Nystatin refilled. Accucheck refills needed... Gained weight and has Been trying To loose it by exercising daily on the treatmill or walking outside. Has given up beef and her gout is better. Reviewed notes from the pulm and the trim attacher, she is stable. She is prediabetic and needs to check her sugar once in a while to make sure her sugars are good No problem-specific Assessment AND Plan notes found for this encounter. PAST MEDICAL HISTORY Diagnosis Date - Acute non-ST segment elevation myocardial infarction (HCC) - Bronchitis, chronic (HCC) 07/13/2012 - Coronary arteriosclerosis - Cough 07/13/2012 - Esophageal reflux - Essential hypertension, benign - Generalized osteoarthrosis, unspecified site - Hypogammaglobulinemia (HCC) - Immunodeficiency disorder (HCC) - Impaired fasting glucose - Known medical problems History of coronary artery bypass grafting three vessel bypass - Left ventricular systolic dysfunction mild - Obesity - Obstructive sleep apnea syndrome - Other and unspecified hyperlipidemia - Rhinitis, chronic 07/13/2012 - Type 2 diabetes mellitus (HCC) - Unspecified asthma(493.90) - Unspecified sinusitis (chronic) PAST SURGICAL HISTORY Procedure Laterality Date - CARDIAC CATH - CHOLECYSTECTOMY HX 90 gallbladder removed - CORONARY ARTERY BYPASS GRAFT 11/11/2015 - EYE SURGERY HX in [place]- eye ablation - F TOTAL ABDOMINAL HYSTERECTOMY - HYSTERECTOMY HX 1979 partial hysterectomy, still has ovaries - PAST SURGICAL HISTORY OF 10/2007 ptosis - PAST SURGICAL HISTORY OF 11/12/2015 CABG - SEPTOPLASTY 1983 nasal septum - STABISMUS SURG,ONE VERT MUSCLE 2012 FAMILY HISTORY Problem Relation Age of Onset - Arthritis Mother - Heart Mother - anemia [OTHER] Mother - Heart Father - Diabetes Father - Stroke Father - Coronary Artery Disease Father - Cancer Maternal Grandfather kidney and stomach - Heart Sister - Heart Brother - COPD Sister - Heart Daughter - Hypertension Son Social History Substance Use Topics - Smoking status: Never Smoker - Smokeless tobacco: Never Used - Alcohol use Yes Comment: twice per month Past medical history, appointments, medications, allergies reviewed. Pertinent Lab/Diagnostic Studies are reviewed and discussed today Current Outpatient Prescriptions: - acetaminophen 325 mg-caffeine 40 mg-butalbital 50 mg (FIORICET) per tablet - amiodarone (PACERONE) 200 mg tablet - levothyroxine (LEVOXYL) 25 mcg tablet - montelukast (SINGULAIR) 10 mg tablet - ezetimibe (ZETIA) 10 mg tablet - potassium chloride 20 mEq TbER - furosemide (LASIX) 20 mg tablet - carvedilol (COREG) 6.25 mg tablet - apixaban (ELIQUIS) 5 mg tab tab(s) - mupirocin (BACTROBAN) 2 % cream - ACCU-CHEK SOFTCLIX LANCETS lancets - ACCU-CHEK INNA PLUS TEST STRP test strip - albuterol HFA (PROAIR HFA) 90 mcg/actuation inhaler - budesonide-formoterol (SYMBICORT) 160-4.5 mcg/actuation inhaler - levalbuterol (XOPENEX) 0.63 mg/3 mL nebulizer solution - acetaminophen (TYLENOL) 325 mg tablet - METRONIDAZOLE 0.75 % TOPICAL GEL Review of Systems CONSTITUTIONAL: No fevers, chills night sweats, unintended weight loss CARDIOVASCULAR: No chest pain, dyspnea, palpitations, orthopnea, PND, ankle edema. PULM: No dyspnea, unexplained cough. GI: No dysphagia/odynophagia, problematic reflux, constipation, diarrhea, changes in stool habits, hematochezia, melena. : No new urinary complaints, including dysuria, gross hematuria or pyuria. NEURO: No new balance problems, peripheral weakness/paresthesias or numbness of concern. Physical Exam BP 146/78 (BP Site: Right Arm, BP Position: Sitting, BP Cuff Size: Large Adult) Pulse 72 Resp 16 Ht 154.9 cm (5' 1) Wt 97.5 kg (215 lb) SpO2 93% BMI 40.62 kg/m2 General appearance: Well appearing, alert, in no acute distress, well nourished. Skin: Skin color, texture, turgor normal, no suspicious rashes or lesions Head: Normocephalic, no masses, lesions, tenderness or abnormalities Eyes: Anicteric sclera. Pupils are equally round and reactive to light. Extraocular movements are intact. Lungs: Lungs clear to auscultation. No wheezing, rhonchi, rales Heart: RRR without murmur, gallop, or rubs. Extremities: No deformities, edema, skin discoloration, clubbing or cyanosis. Good capillary refill. ASSESSMENT/PLAN: 1. Essential hypertension - ICD9: 401.9, ICD10: I10 (primary diagnosis) - good control - Recommended regular aerobic exercise. - Recommend home blood pressure monitoring, to bring results in on next visit - Goal of BP <130/80 2. Tinea corporis - ICD9: 110.5, ICD10: B35.4 - NYSTATIN 100,000 UNIT/GRAM TOPICAL POWDER 3. Mixed hyperlipidemia - ICD9: 272.2, ICD10: E78.2 Poor control but cannot tolerate the statins - Continue current medication. - EZETIMIBE 10 MG TABLET 4. Prediabetes - ICD9: 790.29, ICD10: R73.03 - ACCU-CHEK SOFTCLIX LANCETS - ACCU-CHEK INNA PLUS TEST STRIPS 5. Acquired hypothyroidism - ICD9: 244.9, ICD10: E03.9 - Instructed patient on importance of taking on an empty stomach either first thing in the morning or at bedtime. - TSH BLD - T3 BLD - T4 FREE/FREE THYROX 6. Osteoporosis screening - ICD9: V82.81, ICD10: Z13.820 - DXA - VFA ASSESS ONLY MARY CHANG MD CNOV Observed: 11/09/2017 Status: COMPLETED Source: [place] 11:00 AM [facility] REPOSITORY Office Visit (INTMWS) ANTIONETTE WYNNE ([id number]) 1945 F Date Time Provider Department 11/09/17 11:00 AM MARY CHANG INTMWS During your visit today, we recorded the following information about you: Pulse Respiration Blood pressure Weight 72/minute 16/minute 146/78 97.5 kg Height 1.549 m Cristina Quiroga LPN 11/09/2017 11:23 AM Signed BONE MINERAL DENSITY PATIENT INSTRUCTIONS Bone mineral density testing measures the amount of calcium in certain parts of your bones. This information determines how strong your bones are. The test is used to detect osteoporosis, a disease in which the bone's mineral content and density are low, increasing a person's risk of fractures. The lumbar spine (lower back) and the hip are the skeletal sites usually examined. For the test, remember that: 1. You cannot take this test if you are . 2. Eat a normal diet on the day of the test. 3. Take your medications as you normally would. 4. DO NOT take calcium supplements (such as Tums) for 24 hours before the test. 5. On the day of the test, leave valuables (jewelry or credit cards) at home. 6. The test should be performed prior to oral, rectal or IV contrast studies, or at least 7 days after any of these studies. For the test, you may be asked to wear a hospital gown. You will lie on your back, on a padded table, in a comfortable position. Generally, you can resume your usual activities immediately. MARY CHANG MD 11/09/2017 8:19 PM Signed Reason for Visit Patient presents with: Established Patient: 3 month follow up-refills Antionette Wynne is a 72 year old female who presents here today for Above Complaints.. Health Maintenance COLORECTAL CANCER SCREENING,SEE MODIFIER MAMMOGRAM HPI Eyelid surgery completed which Helps her peripheral vision, she can drive now. Has a rash under her breast area, and belly area and would need Nystatin refilled. Accucheck refills needed... Gained weight and has Been trying To loose it by exercising daily on the treatmill or walking outside. Has given up beef and her gout is better. Reviewed notes from the pulm and the trim attacher, she is stable. She is prediabetic and needs to check her sugar once in a while to make sure her sugars are good No problem-specific Assessment ANDamp; Plan notes found for this encounter. PAST MEDICAL HISTORY Diagnosis Date - Acute non-ST segment elevation myocardial infarction (HCC) - Bronchitis, chronic (HCC) 07/13/2012 - Coronary arteriosclerosis - Cough 07/13/2012 - Esophageal reflux - Essential hypertension, benign - Generalized osteoarthrosis, unspecified site - Hypogammaglobulinemia (HCC) - Immunodeficiency disorder (HCC) - Impaired fasting glucose - Known medical problems History of coronary artery bypass grafting three vessel bypass - Left ventricular systolic dysfunction mild - Obesity - Obstructive sleep apnea syndrome - Other and unspecified hyperlipidemia - Rhinitis, chronic 07/13/2012 - Type 2 diabetes mellitus (HCC) - Unspecified asthma(493.90) - Unspecified sinusitis (chronic) PAST SURGICAL HISTORY Procedure Laterality Date - CARDIAC CATH - CHOLECYSTECTOMY HX 90 gallbladder removed - CORONARY ARTERY BYPASS GRAFT 11/11/2015 - EYE SURGERY HX in [place]- eye ablation - F TOTAL ABDOMINAL HYSTERECTOMY - HYSTERECTOMY HX 1979 partial hysterectomy, still has ovaries - PAST SURGICAL HISTORY OF 10/2007 ptosis - PAST SURGICAL HISTORY OF 11/12/2015 CABG - SEPTOPLASTY 1983 nasal septum - STABISMUS SURG,ONE VERT MUSCLE 2011 FAMILY HISTORY Problem Relation Age of Onset - Arthritis Mother - Heart Mother - anemia [OTHER] Mother - Heart Father - Diabetes Father - Stroke Father - Coronary Artery Disease Father - Cancer Maternal Grandfather kidney and stomach - Heart Sister - Heart Brother - COPD Sister - Heart Daughter - Hypertension Son Social History Substance Use Topics - Smoking status: Never Smoker - Smokeless tobacco: Never Used - Alcohol use Yes Comment: twice per month Past medical history, appointments, medications, allergies reviewed. Pertinent Lab/Diagnostic Studies are reviewed and discussed today Current Outpatient Prescriptions: - acetaminophen 325 mg-caffeine 40 mg-butalbital 50 mg (FIORICET) per tablet - amiodarone (PACERONE) 200 mg tablet - levothyroxine (LEVOXYL) 25 mcg tablet - montelukast (SINGULAIR) 10 mg tablet - ezetimibe (ZETIA) 10 mg tablet - potassium chloride 20 mEq TbER - furosemide (LASIX) 20 mg tablet - carvedilol (COREG) 6.25 mg tablet - apixaban (ELIQUIS) 5 mg tab tab(s) - mupirocin (BACTROBAN) 2 % cream - ACCU-CHEK SOFTCLIX LANCETS lancets - ACCU-CHEK INNA PLUS TEST STRP test strip - albuterol HFA (PROAIR HFA) 90 mcg/actuation inhaler - budesonide-formoterol (SYMBICORT) 160-4.5 mcg/actuation inhaler - levalbuterol (XOPENEX) 0.63 mg/3 mL nebulizer solution - acetaminophen (TYLENOL) 325 mg tablet - METRONIDAZOLE 0.75 % TOPICAL GEL Review of Systems CONSTITUTIONAL: No fevers, chills night sweats, unintended weight loss CARDIOVASCULAR: No chest pain, dyspnea, palpitations, orthopnea, PND, ankle edema. PULM: No dyspnea, unexplained cough. GI: No dysphagia/odynophagia, problematic reflux, constipation, diarrhea, changes in stool habits, hematochezia, melena. : No new urinary complaints, including dysuria, gross hematuria or pyuria. NEURO: No new balance problems, peripheral weakness/paresthesias or numbness of concern. Physical Exam BP 146/78 (BP Site: Right Arm, BP Position: Sitting, BP Cuff Size: Large Adult) Pulse 72 Resp 16 Ht 154.9 cm (5' 1ANDquot;) Wt 97.5 kg (215 lb) SpO2 93% BMI 40.62 kg/m2 General appearance: Well appearing, alert, in no acute distress, well nourished. Skin: Skin color, texture, turgor normal, no suspicious rashes or lesions Head: Normocephalic, no masses, lesions, tenderness or abnormalities Eyes: Anicteric sclera. Pupils are equally round and reactive to light. Extraocular movements are intact. Lungs: Lungs clear to auscultation. No wheezing, rhonchi, rales Heart: RRR without murmur, gallop, or rubs. Extremities: No deformities, edema, skin discoloration, clubbing or cyanosis. Good capillary refill. ASSESSMENT/PLAN: 1. Essential hypertension - ICD9: 401.9, ICD10: I10 (primary diagnosis) - good control - Recommended regular aerobic exercise. - Recommend home blood pressure monitoring, to bring results in on next visit - Goal of BP ANDlt;130/80 2. Tinea corporis - ICD9: 110.5, ICD10: B35.4 - NYSTATIN 100,000 UNIT/GRAM TOPICAL POWDER 3. Mixed hyperlipidemia - ICD9: 272.2, ICD10: E78.2 Poor control but cannot tolerate the statins - Continue current medication. - EZETIMIBE 10 MG TABLET 4. Prediabetes - ICD9: 790.29, ICD10: R73.03 - ACCU-CHEK SOFTCLIX LANCETS - ACCU-CHEK INNA PLUS TEST STRIPS 5. Acquired hypothyroidism - ICD9: 244.9, ICD10: E03.9 - Instructed patient on importance of taking on an empty stomach either first thing in the morning or at bedtime. - TSH BLD - T3 BLD - T4 FREE/FREE THYROX 6. Osteoporosis screening - ICD9: V82.81, ICD10: Z13.820 - DXA - VFA ASSESS ONLY MARY CHANG MD Referring Provider: MARY CHANG [[id number]] Allergies As of Date: 11/09/2017 Noted Allergy Reaction ALBUTEROL 11/27/2015 14 - Other: See Comments Comments: Tachycardia. HEART RACES, SHORTNESS OF BREATH (PT USES XOPENEX INHALER AT HOME) BETA BLOCKERS (BETA-BLOCKERS (BET*11/16/2007 14 - Other: See Comments Comments: Wheezing. Dyspnea CODEINE 11/16/2007 11 - Vomiting 14 - Other: See Comments Comments: Nausea DOXYCYCLINE 11/19/2008 4 - Hives PENICILLINS 11/16/2007 2 - Rash 4 - Hives RED DYE 03/03/2015 5 - Intolerance Comments: headaches SULFA (SULFONAMIDE ANTIBIOTICS) 11/16/2007 2 - Rash 4 - Hives THEOPHYLLINE 11/16/2007 2 - Rash Date Reviewed: 11/09/2017 Reviewed by: Cristina Quiroga LPN - Fully Assessed Reason for Visit: Established Patient [175] Cmt: 3 month follow up-refills Primary Visit Diagnosis:Essential hypertension [I10] Other Visit Diagnoses:Tinea corporis [B35.4] Mixed hyperlipidemia [E78.2] Prediabetes [R73.03] Acquired hypothyroidism [E03.9] Osteoporosis screening [Z13.820] Order(s):ezetimibe (ZETIA) 10 mg tabletTake 1 tablet by mouth once daily.Disp: 30 tabletRfl: 5 nystatin (MYCOSTATIN) powderApply 1 application to affected area four times daily as needed.Disp: 1 BottleRfl: 5 DXA - VFA ASSESS ONLY [[id number]] Order #: [id number] FUTURE TSH BLD [SQTSH] Order #: [id number] FUTURE T3 BLD [SQT3] Order #: [id number] FUTURE T4 FREE/FREE THYROX [SQFT4] Order #: [id number] FUTURE ACCU-CHEK SOFTCLIX LANCETS lancets1 Each once daily.Disp: 50 EachRfl: 12 ACCU-CHEK INNA PLUS TEST STRP test strip1 Strip once daily. Dx: Insulin: noDisp: 50 StripRfl: 12 Prescriptions as of 11/09/2017 Sig: EZETIMIBE 10 MG TABLET Take 1 tablet by mouth once d* NYSTATIN 100,000 UNIT/GRAM TO* Apply 1 application to affect* ACCU-CHEK SOFTCLIX LANCETS 1 Each once daily. ACCU-CHEK INNA PLUS TEST STR* 1 Strip once daily. Dx: Insu* [id number]* Take 1 tablet by mouth twice * AMIODARONE 200 MG TABLET Take 0.5 tablets by mouth twi* LEVOTHYROXINE 25 MCG TABLET Take 1 tablet by mouth once d* MONTELUKAST 10 MG TABLET Take 1 tablet by mouth once d* POTASSIUM CHLORIDE ER 20 MEQ * Take 1 tablet by mouth three * FUROSEMIDE 20 MG TABLET Take 1 tablet by mouth once d* CARVEDILOL 6.25 MG TABLET Take 1 tablet by mouth twice * APIXABAN 5 MG TABLET Take 1 tablet by mouth twice * MUPIROCIN 2 % TOPICAL CREAM Apply to affected area three* ALBUTEROL SULFATE HFA 90 MCG/* Inhale 2 Puffs as instructed * BUDESONIDE-FORMOTEROL HFA 160* Inhale 2 Puffs as instructed * LEVALBUTEROL 0.63 MG/3 ML TANNA* ACETAMINOPHEN 325 MG TABLET 1-2 tablets Every 6 hours as * METRONIDAZOLE 0.75 % TOPICAL * apply twice daily- dispense * Problem List As Of Date 11/09/2017 Noted Resolved Hyperlipidemia [E78.5] INVALID FOR*08/04/2015 More... Impaired fasting glucose [R73.01] INVALID FOR*05/05/2015 Hypertension [I10] INVALID FOR* More... Migraine without aura, not intractable, with st*INVALID FOR* GERD (gastroesophageal reflux disease) [K21.9] INVALID FOR* More... Bronchitis, chronic [J42] INVALID FOR* Cough [R05] INVALID FOR* Rhinitis, chronic [J31.0] INVALID FOR* Prediabetes [R73.03] INVALID FOR* More... Hypogammaglobulinemia (HCC) [D80.1] INVALID FOR* More... Mixed hyperlipidemia [E78.2] INVALID FOR* More... Atherosclerosis of squaxin coronary artery of na*INVALID FOR* More... S/P coronary artery bypass graft x 2 [Z95.1] INVALID FOR* More... Paroxysmal atrial fibrillation (HCC) [I48.0] INVALID FOR* More... Ptosis of eyelid, right [H02.401] INVALID FOR*09/09/2017 Other instructions from your clinician: BONE MINERAL DENSITY PATIENT INSTRUCTIONS Bone mineral density testing measures the amount of calcium in certain parts of your bones. This information determines how strong your bones are. The test is used to detect osteoporosis, a disease in which the bone's mineral content and density are low, increasing a person's risk of fractures. The lumbar spine (lower back) and the hip are the skeletal sites usually examined. For the test, remember that: 1. You cannot take this test if you are . 2. Eat a normal diet on the day of the test. 3. Take your medications as you normally would. 4. DO NOT take calcium supplements (such as Tums) for 24 hours before the test. 5. On the day of the test, leave valuables (jewelry or credit cards) at home. 6. The test should be performed prior to oral, rectal or IV contrast studies, or at least 7 days after any of these studies. For the test, you may be asked to wear a hospital gown. You will lie on your back, on a padded table, in a comfortable position. Generally, you can resume your usual activities immediately. Prescriptions ordered this encounter Disp Refills Start End EZETIMIBE 10 MG TABLET 30 t* 5 11/09/2017 Route: ORAL Sig: Take 1 tablet by mouth once daily. NYSTATIN 100,000 UNIT/GRAM TOPICAL P* 1 Tray* 5 11/09/2017 Route: TOPICAL Sig: Apply 1 application to affected area four times daily as needed. ACCU-CHEK SOFTCLIX LANCETS 50 E* 11/09/2017 Route: OTHER Si Each once daily. ACCU-CHEK INNA PLUS TEST STRIPS 50 S* 11/09/2017 Route: OTHER Si Strip once daily. Dx: Insulin: no Medications Discontinued During This Encounter ezetimibe (ZETIA) 10 mg tablet 30 t* 5 05/30/2017 11/09/2017 Route: ORAL Sig: Take 1 tablet by mouth once daily. Disc: Reason for discontinue is not on file. ACCU-CHEK SOFTCLIX LANCETS lancets 50 E* 12 12/15/2016 11/09/2017 Route: OTHER Si Each once daily. Disc: Reason for discontinue is not on file. ACCU-CHEK INNA PLUS TEST STRP test * 50 S* 12 12/15/2016 11/09/2017 Route: OTHER Si Strip once daily. Dx: Insulin: no Disc: Reason for discontinue is not on file. Encounter Status:Closed by MARY CHANG MD on 11/09/17 PULMONARY VISIT REPORT Observed: 10/27/2017 Status: F Source: [facility] 4:15 PM [facility] REPOSITORY [facility] of [address] [place] [address] OFFICE VISIT Date of Service: 10/26/17 MR#: [id number] Acct: [id number] Name: ANTIONETTE WYNNE Rep #: [id number] : 1945 Provider: Rosaline Sheikh Age/Sex: 72/F Location: [facility] Status: Signed Assessment AND Plan 1. Mild intermittent asthma, unspecified whether complicated J45.20 Status Chronic Plan Continue Symbicort. Annual PFTs will be due in 3 months, follow-up with Dr. Sevilla after obtaining testing. No indication for antibiotics or prednisone today. The patient has been encouraged to contact the office if any symptoms of asthma exacerbation present and she is unable to be seen by her primary care physician. 2. Restrictive lung disease J98.4 Status Chronic Plan Continue supportive measures. Evaluate for possible exertional hypoxia with a formal pulmonary stress test. If present the patient will be ordered supplemental oxygen accordingly. Follow-up with Dr. Sevilla in 3 months. 3. Shortness of breath R06.02 Status Chronic Plan See assessment and plan #3. Continue current maintenance medications, assess for exertional hypoxia. Follow-up with Dr. Sevilla in 3 months. The patient forgot to utilize her rescue inhaler on exertion today, did not have one present and therefore was treated with an albuterol nebulizer in the office. She responded well to the treatment and noted relief of her shortness of breath after the treatment was complete. Orders Orders: Medications Discontinued: albuterol sulfate Discontinued Reason: Off1.25 mg (3 mL) Continuous Nebulization ONCE ice Medication has been Documented as given 4. BARTOLO (obstructive sleep apnea) G47.33 Status Chronic Plan She is currently using and benefiting from pressure support therapy. No indication for titration study at this time. Follow-up in 3 months to evaluate symptom control and apnea hypotony index. Plan Detail Other Medications Changed: Follow Up 3 Months (AZAEL) HPI 3 M FU: Chief Complaint: shortness of breath HPI Comments Details: Patient presents to the office today for a routine follow-up on her asthma, restrictive lung disease, shortness of breath and obstructive sleep apnea. She is ambulatory and currently on room air. She denies any emergency department visits for respiratory problems since her last office visit. She has not been treated with antibiotics or steroids for any respiratory problems or exacerbations of her asthma. She continues compliance with Symbicort 2 puffs twice daily. She reports rinsing her mouth out after each use. She denies any medication side effects such as sore throat or thrush. Continues to have a chronic cough but reports that the frequency has significantly improved. The cough is nonproductive. She denies any sputum production or hemoptysis. She continues to have shortness of breath on exertion. She denies any chest pain or palpitations. She denies any lower extremity edema, remains compliant with her Lasix daily. She continues compliance with Flonase daily. She is also compliant with Singulair daily. She has not had utilize her rescue inhaler often. See complete review of systems. She recently had 3 consecutive eye surgeries and was unable to use her BiPAP as a result. She is completely healed at this point and is ready to resume her BiPAP use. She reports that when using her BiPAP she does notice that she feels more rested in the morning. She denies any difficulties with air leaks or dry mouth. She works closely with her [employer] company regarding supply replacement. 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 [employer] Vendor: Abbie Accompanied by: Self Allergies Beta-Blockers (Beta-Adrenergic Bloc Allergy (Verified 10/26/17 09:03) Shortness of breath doxycycline Allergy (Verified 10/26/17 09:03) Hives Penicillins Allergy (Verified 10/26/17 09:03) Rash red dye Allergy (Verified 10/26/17 09:03) Unknown Sulfa (Sulfonamide Antibiotics) Allergy (Verified 10/26/17 09:03) Rash theophylline Allergy (Verified 10/26/17 09:03) Rash codeine Adverse Reaction (Verified 10/26/17 09:03) Nausea Medications Budesonide/Formoterol 160/4.5 [Symbicort 160/4.5 Mcg Inhaler (SP)] 2 puff INHALATION BID PRN 11/09/15 [History Confirmed 10/21/17] Montelukast [Singulair] 10 mg PO DAILY 11/09/15 [History Confirmed 10/21/17] Acetaminophen [Tylenol Tablet] 650 mg PO Q8H PRN PRN #0 tab 12/04/15 [Rx Confirmed 10/21/17] Furosemide [Lasix] 20 mg PO DAILY #30 tab 12/04/15 [Rx Confirmed 10/21/17] Acetaminophen/Butalbital/Caffe [Fioricet] 1 tab PO Q6H PRN PRN 03/26/17 [History Confirmed 10/21/17] Ezetimibe [Zetia] 10 mg PO QHS 03/26/17 [History Confirmed 10/21/17] Metoprolol Tartrate [Lopressor (beta sara)] 6.25 mg PO BID 03/26/17 [History Confirmed 10/21/17] Potassium Chloride [K-Dur] 20 meq PO TID 03/26/17 [History Confirmed 10/21/17] Aspirin E.C. [Ecotrin] 81 mg PO DAILY@0800 #60 tab 03/28/17 [Rx Confirmed 10/21/17] Carvedilol [Coreg (Beta Sara)] 6.25 mg PO BID #60 tab 03/28/17 [Rx Confirmed 10/21/17] Furosemide [Lasix] 20 mg PO DAILY #60 tab 03/28/17 [Rx Confirmed 10/21/17] Potassium Chloride [K-Dur] 20 meq PO TID #90 tab 03/28/17 [Rx Confirmed 10/21/17] apixaban 5 mg tablet 5 mg PO BID #180 tab 08/19/17 [Rx Confirmed 10/21/17] amiodarone 200 mg tablet 100 mg PO QDAY tab 08/22/17 [History Confirmed 10/21/17] levothyroxine 50 mcg tablet 50 mcg PO ONCE #30 tab 08/22/17 [Rx Confirmed 10/21/17] albuterol sulfate HFA 90 mcg/actuation aerosol inhaler 2 puff INHALATION Q4H PRN #1 device 09/08/17 [Rx Confirmed 10/21/17] benzonatate 100 mg capsule 100 mg PO Q6H 10/19/17 [History Confirmed 10/21/17] fluticasone 50 mcg/actuation nasal spray,suspension 50 mcg INTRANASAL BID PRN 10/19/17 [History Confirmed 10/21/17] guaifenesin ER 600 mg tablet, extended release 12 hr 600 mg PO Q12H PRN 10/19/17 [History Confirmed 10/21/17] cyclobenzaprine 5 mg tablet 5 mg PO TID PRN #10 tab 10/21/17 [Rx Confirmed 10/21/17] levalbuterol 0.31 mg/3 mL solution for nebulization 0.63 mg INHALATION Q4H PRN #120 vial 10/26/17 [Rx Confirmed 10/26/17] [facility] Medical History Arteriosclerotic heart disease (ASHD) (Chronic) Acute TN, subendocardial (Acute) Acute systolic (congestive) heart failure (Chronic) Acute bronchitis (Acute) Wheezing (Chronic) Cough productive of purulent sputum (Chronic) Night sweats (Chronic) 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) Asthma (Chronic) Restrictive lung disease (Chronic) Hypokalemia (Chronic) Shortness of breath (Chronic) Headache (Chronic) Paroxysmal atrial fibrillation (Chronic) Nonrheumatic tricuspid valve regurgitation (Chronic) Body mass index (BMI) of 40.0-44.9 in adult (Chronic) Dilated cardiomyopathy (Chronic) 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) HTN (hypertension) (Chronic) Diabetes mellitus (Chronic) HLD (hyperlipidemia) (Chronic) Dyspnea (Chronic) DM type 2 (diabetes mellitus, type 2) (Chronic) Hypogammaglobulinemia (Chronic) Morbid obesity (Chronic) Migraines (Chronic) BARTOLO (obstructive sleep apnea) (Chronic) CAD (coronary artery disease) (Chronic) Atrial fibrillation with rapid ventricular response (Acute) Chest pain (Acute) Surgical History History of cataract extraction (Resolved) History of coronary artery bypass graft x 3 (Resolved) History of cholecystectomy (Resolved) History of partial hysterectomy (Resolved) Family History Father CAD (coronary artery disease) Social History Smoking Status: Never smoker second hand exposure: No alcohol intake: never substance use type: does not use caffeine: Yes Type: coffee what type of physical activity do you participate in: running, walking frequency: 3-4 times per week Review of Systems Const CONSTITUTIONAL: Negative anorexia, body ache, chills, daytime sleepiness, fever(s), night sweats, oral thrush, stops breathing during sleep, weight loss, sleeping in chair, fatigue, weight loss, weight gain, frequent colds, seasonal allergies, other, headache(s) or orthopnea EETM Ear Nose Throat Mouth: Positive hoarseness and sinus pressure; negative hard of hearing, hearing normal, dry mouth in morning, change in vision, itchy eyes, eye pain, swallowing Difficulty, ear pain, nose bleed, headache(s), mouth pain, nasal congestion, nasal discharge, post nasal drip, sinus pain, sore throat or other Cardio Cardiovascular: Positive murmur and other (blood thinner); negative chest pain, chest pain at rest, chest pain with activity, irregular heart rhythm, edema, shortness of breath when lying down or palpitations Resp Respiratory: Positive as per HPI, wheezing, chest tightness, pain on inspiration and inhalers; negative shortness of breath, pain with cough, chest congestion, cough, increase use of rescue inhalers, snoring, apnea or other Gastro Gastrointestional: Negative bloody stools, change in appetite, difficulty swallowing, reflux, hematemesis, melena stool, loose stool, constipation or other Genitourinary: Negative blood in urine, nocturia, pain with urination or other Musc Musculoskeletal: Positive back pain; negative body pain, neck pain or other Skin/Breast Skin/Breast: Negative dry skin, itching, rash, unusual bruising, breast lump or other Neuro Neurological: Negative restless legs, confusion, weakness or other Psych Psychocological: Negative abnormal sleep pattern, anxiety, thoughts of hurting self/others, hopelessness or other Lymph Lymphatic: Positive easy bruising; negative easy bleeding, swollen lymph nodes or other Exam Const Constitutional: Positive obese, conversant, cooperative, in no acute respiratory distress, healthy appearing, well developed, well nourished and good hygiene Head Head: Positive normocephalic and atraumatic; negative cyanosis of lips/distal nose Eyes Eye: Positive clear conjunctiva and nystagmus; negative scleral abnormality Ears Ear: Positive external ears normal; negative hard of hearing or hearing normal Nose Nose: Positive external nose normal and no nasal discharge; negative epistaxis Mouth Mouth: Positive good dentition, oral mucosae normal, no lesions and crowded posterior oropharynx; negative post nasal drip, oral thrush present or malodorous breath Mallampati Score: III: Mallampati Score Neck Neck: Positive normal visual inspection, full ROM and trachea midline; negative lymphadenopathy, JVD or tender Chest Wall Chest: Positive normal inspection of the chest and symmetric chest movement; negative increased A/P diameter Resp lung sounds: Positive diminished, wheeze present on forced exhalation, normal expiratory time and normal respiratory effort; negative rhonchi, rales, dullness to percussion, increased work of breathing or use of accessory muscles Cardio Cardiac: Positive murmur murmur: Positive systolic and RUSB, S2 normal, S1 normal, regular rhythm and regular rate GI GI: Positive obese and normal to inspection; negative distended or ascites Genitourinary: Positive deferred Musc Musculoskeletal: Positive steady gait and kyphosis; negative lordosis or scoliosis Skin Pulmonary Skin Exam: Positive intact; negative rash, lesion, ulcers, erythema, scaly or dermal atrophy Pulses Pulse: Yes pulses normal x4 extremities Extremities Extremities: Yes capillary refill normal, No clubbing, No cyanosis, No edema, No stasis dermatitis Neuro Neurologic: Yes conversant, Yes no focal neuro deficits, Yes cooperative, Yes normal cognition, Yes normal coordination, Yes understands questions, Yes normal concentration Lymph Lymphatic: No lymphadenopathy, No tenderness, No cervical adenopathy, No axillary adenopathy Psych Appearance: Positive grossly normal, eye contact and well kempt Mental Status: Positive mental status grossly normal Mood: Positive congruent mood Affect: Positive normal affect Office Meds albuterol sulfate Performing Provider: MIAH Melgar Administered by: MIAH Melgar on 10/26/17 09:37 Dose Route Admin Location Lot Number Expiration DateNDC Press Cutter 3 mg Continuous NebuPMW unknown 10/27/17 0468-2842-97 [employer]/ lization Coding Level of Care Code Off vis,est,level 4 Diagnoses Mild intermittent asthma, unspecified whether complicated J45.20 Asthma complication type: unspecified Asthma persistence: intermittent Asthma severity: mild Restrictive lung disease J98.4 Shortness of breath R06.02 BARTOLO (obstructive sleep apnea) G47.33 10/27/17 1615 <Electronically signed by Rosaline DOOLEY> Date Rosaline DOOLEY Cosigner Signature: Date (if applicable) CC: Mary Chang MD URGENT CARE VISIT Observed: 10/21/2017 Status: F Source: [facility] REPORT 2:09 PM [facility] REPOSITORY [facility] [address] [place] [address] OFFICE VISIT Date of Service: 10/21/17 MR#: [id number] Acct: [id number] Name: ANTIONETTE WYNNE Rep #: [id number] : 1945 Provider: Trenton RUSSELL Age/Sex: 72/F Location: [facility] Status: Signed Intake Vital Signs10/21/17 Height 5 ft 2 in Intake Visit Reasons: BACK PAIN Is patient in pain?: Yes Allergies Beta-Blockers (Beta-Adrenergic Bloc Allergy (Verified 10/21/17 13:31) Shortness of breath doxycycline Allergy (Verified 10/21/17 13:31) Hives Penicillins Allergy (Verified 10/21/17 13:31) Rash red dye Allergy (Verified 10/21/17 13:31) Unknown Sulfa (Sulfonamide Antibiotics) Allergy (Verified 10/21/17 13:31) Rash theophylline Allergy (Verified 10/21/17 13:31) Rash codeine Adverse Reaction (Verified 10/21/17 13:31) Nausea Medications Budesonide/Formoterol 160/4.5 [Symbicort 160/4.5 Mcg Inhaler (SP)] 2 puff INHALATION BID PRN 11/09/15 [History Confirmed 10/21/17] Montelukast [Singulair] 10 mg PO DAILY 11/09/15 [History Confirmed 10/21/17] Acetaminophen [Tylenol Tablet] 650 mg PO Q8H PRN PRN #0 tab 12/04/15 [Rx Confirmed 10/21/17] Furosemide [Lasix] 20 mg PO DAILY #30 tab 12/04/15 [Rx Confirmed 10/21/17] Levalbuterol HCl [Xopenex] 0.31 mg IH PRN PRN 06/13/16 [History Confirmed 10/21/17] Acetaminophen/Butalbital/Caffe [Fioricet] 1 tab PO Q6H PRN PRN 03/26/17 [History Confirmed 10/21/17] Ezetimibe [Zetia] 10 mg PO QHS 03/26/17 [History Confirmed 10/21/17] Metoprolol Tartrate [Lopressor (beta sara)] 6.25 mg PO BID 03/26/17 [History Confirmed 10/21/17] Potassium Chloride [K-Dur] 20 meq PO TID 03/26/17 [History Confirmed 10/21/17] Aspirin E.C. [Ecotrin] 81 mg PO DAILY@0800 #60 tab 03/28/17 [Rx Confirmed 10/21/17] Carvedilol [Coreg (Beta Sara)] 6.25 mg PO BID #60 tab 03/28/17 [Rx Confirmed 10/21/17] Furosemide [Lasix] 20 mg PO DAILY #60 tab 03/28/17 [Rx Confirmed 10/21/17] Potassium Chloride [K-Dur] 20 meq PO TID #90 tab 03/28/17 [Rx Confirmed 10/21/17] apixaban 5 mg tablet 5 mg PO BID #180 tab 08/19/17 [Rx Confirmed 10/21/17] amiodarone 200 mg tablet 100 mg PO QDAY tab 08/22/17 [History Confirmed 10/21/17] levothyroxine 50 mcg tablet 50 mcg PO ONCE #30 tab 08/22/17 [Rx Confirmed 10/21/17] albuterol sulfate HFA 90 mcg/actuation aerosol inhaler 2 puff INHALATION Q4H PRN #1 device 09/08/17 [Rx Confirmed 10/21/17] benzonatate 100 mg capsule 100 mg PO Q6H 10/19/17 [History Confirmed 10/21/17] fluticasone 50 mcg/actuation nasal spray,suspension 50 mcg INTRANASAL BID PRN 10/19/17 [History Confirmed 10/21/17] guaifenesin ER 600 mg tablet, extended release 12 hr 600 mg PO Q12H PRN 10/19/17 [History Confirmed 10/21/17] cyclobenzaprine 5 mg tablet 5 mg PO TID PRN #10 tab 10/21/17 [Rx Confirmed 10/21/17] [facility] Medical History Arteriosclerotic heart disease (ASHD) (Chronic) Acute TN, subendocardial (Acute) Acute systolic (congestive) heart failure (Chronic) Acute bronchitis (Acute) Wheezing (Chronic) Cough productive of purulent sputum (Chronic) Night sweats (Chronic) 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) Asthma (Chronic) Restrictive lung disease (Chronic) Hypokalemia (Chronic) Shortness of breath (Chronic) Headache (Chronic) Paroxysmal atrial fibrillation (Chronic) Nonrheumatic tricuspid valve regurgitation (Chronic) Body mass index (BMI) of 40.0-44.9 in adult (Chronic) Dilated cardiomyopathy (Chronic) 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) HTN (hypertension) (Chronic) Diabetes mellitus (Chronic) HLD (hyperlipidemia) (Chronic) Dyspnea (Chronic) DM type 2 (diabetes mellitus, type 2) (Chronic) Hypogammaglobulinemia (Chronic) Morbid obesity (Chronic) Migraines (Chronic) BARTOLO (obstructive sleep apnea) (Chronic) CAD (coronary artery disease) (Chronic) Atrial fibrillation with rapid ventricular response (Acute) Chest pain (Acute) Surgical History History of cataract extraction (Resolved) History of coronary artery bypass graft x 3 (Resolved) History of cholecystectomy (Resolved) History of partial hysterectomy (Resolved) Family History Father CAD (coronary artery disease) Social History Smoking Status: Never smoker second hand exposure: No alcohol intake: never substance use type: does not use caffeine: Yes Type: coffee what type of physical activity do you participate in: running, walking frequency: 3-4 times per week HPI HPI Details: ANTIONETTE WYNNE, is a 72 F who presents to the office today for low back pain for the past 3 or 4 days. Patient states that her back pain is exacerbated by twisting or bending over and localizes it to the right lower back. She does state that approximately 2 weeks ago she had a cold with a lot of coughing and states that she believes she might have injured her back while coughing. She denies nausea, vomiting, diarrhea. No falls or or other mechanisms of injury. No loss of bowel or bladder function. No numbness or tingling or radiation of the pain. No other associated symptoms or alleviating/aggravating factors. ROS Const Constitutional: No chills, fever(s), fatigue or abnormal sleep pattern ENT ENT: No neck pain Resp Respiratory: No shortness of breath or chest congestion Cardio Cardiology: No chest pain at rest, chest pain with exertion or shortness of breath Musc Musculoskeletal: Positive for back pain; no abnormal walking, joint swelling, muscle cramps, limited range of motion, muscle weakness, neck pain, stiffness, numbness or radiating pain into limb Skin Skin: No wounds or lesions Neuro Neurology: No behavioral changes, confusion, abnormal walking or numbness Psych Psychiatric: No behavioral changes, No confusion, No abnormal sleep pattern Endo Endocrine: No fatigue Exam Const General: cooperative, healthy appearing [facility] Head: normocephalic, atraumatic Ears: hearing grossly normal bilaterally Face and sinus: face symmetric Eyes General: appearance normal, both eyes and all related structures Pupils: PERRL Resp Effort AND Inspection: normal respiratory effort Auscultation: Bilateral: Clear to Auscultation Cardio Rate: regular rate Rhythm: regular rhythm Heart Sounds: S1 normal, S2 normal Musc Musculoskeletal: Yes decreased ROM; no muscle weakness or joint tenderness Cervical Spine: normal cervical lordosis and cervical ROM normal Thoracic/Lumbar Spine: straight leg raise negative bilaterally, pain with thoraco-lumbar ROM, thoraco-lumbar spasm on the right in the lower thoracic and in the upper lumbar Skin General: no rashes or lesions noted Neuro General: alert, moves all extremities, CN's II-XI intact bilaterally Extrem General: full ROM, normal to inspection Psych Appearance: grossly normal Mental Status: mental status grossly normal Results BMSUA Office Urine Color YELLOW Last Edit by Nesha Kwan on 10/21/17 13:41 Office Urine Clarity Clear Last Edit by Nesha Kwan on 10/21/17 13:41 Assessment AND Plan Problems 1. Acute right-sided low back pain without sciatica M54.5 Status Acute Plan Patient has been advised to use Tylenol as needed for the pain as well as a heating pad 3 times daily. Patient also educated on potential side effects and risks of the medications she has been prescribed today. Advised of potential red flags when appropriate report to the ED. Patient verbalized understanding of all the above. Orders Orders: Medications New: Coding Level of Care Code Off vis,est,level 3 Diagnoses Acute right-sided low back pain without sciatica M54.5 Chronicity: acute Back pain laterality: right Sciatica presence: without sciatica 10/21/17 1409 <Electronically signed by Trenton RUSSELL> Date Trenton RUSSELL Cosigner Signature: Date (if applicable) CC: ALLERGIES ALLERGIES DATE TYPE / NAME / CODE REACTION SEVERITY SOURCE CODE 10/04/2018 Drug Beta-Blockers Shortness of Unknown [place] Allergy/41 (Beta-Adrenergic breath [facility] 5944455( Bloc/[id number]([facility]) NORM) Repository 10/04/2018 Drug Penicillins/K69557 Rash Unknown [place] Allergy/41 0476(RXNORM) Community 9714127([facility]) Repository 10/04/2018 Drug Sulfa (Sulfonamide Rash Unknown [place] Allergy/41 Antibiotics)/F0010 Community 9438658( 23949(RXNORM) [facility]) Repository 10/04/2018 Drug theophylline/F0060 Rash Unknown [place] Allergy/41 67561(RXNORM) Community 9866753([facility]) Repository 10/04/2018 Drug codeine/[id number] Nausea Unknown [place] Allergy/41 (RXNORM) Community 2086578([facility] OME CT) Repository 10/04/2018 Drug doxycycline/Y60130 Hives Unknown [place] Allergy/41 2748(RXNORM) Community 1009231([facility] OMED CT) Repository 10/04/2018 Drug red Unknown Unknown [place] Allergy/41 dye/[id number](RXN [facility] 4721341[facility] 11/27/2015 DRUG ALBUTEROL OTHER: SEE C [facility]/ Main [place] 7425922(SN Repository OMED CT) 03/03/2015 DRUG RED DYE INTOLERANCE [place] [address] [place] 2479864(SN Repository OMED CT) 11/19/2008 DRUG DOXYCYCLINE HIVES [place] [address] [address] [place] 8579691(SN Repository OMED CT) 11/16/2007 Drug BETA-BLOCKERS OTHER: SEE C [facility] Class/4195 (BETA-ADRENERGIC Main [place] [address](SNOM BLOCKING AGTS) Repository ED CT) 11/16/2007 [facility]UG [facility]INE [facility] [place] 2948715(SN Repository OMED CT) 11/16/2007 Drug PENICILLINS RASH [facility] Class/4195 Main [place] [address](SNOM Repository ED CT) 11/16/2007 Drug SULFA (SULFONAMIDE RASH [facility]/4195 ANTIBIOTICS) [place] [address](SNOM Repository ED CT) 11/16/2007 DRUG THEOPHYLLINE RASH [place] [address] [place] 2634452(SN Repository OMED CT) ENCOUNTERS ENCOUNTERS ADMIT/DISCHARGE ACCOUNT ADMITTING ENCOUNTER LOCATION SOURCE NUMBER CLASS 10/04/2018/10/04/19 [id number] Ambulatory BMSBuilding:B [place] 19 [place].[facility] Repository 09/29/2018/09/29/19 [id number] Ambulatory BMSBuilding:Rosalio [place] 19 MS.[facility] Repository 09/28/2018 [id number] Ambulatory [facility] Hospital ing:PT Repository 09/26/2018 [id number] Ambulatory BMSBuilding:Rosalio Blackman MS.[facility] Repository 09/19/2018/01/08 [id number] Ambulatory BMSBuilding:B [place] 19 MS.[facility] Repository 09/15/2018 [id number] Ambulatory [facility] HospitalBuild Hospital ing:PSN Repository 09/15/2018 [id number] [facility] 09/02/2018/09/03/20 [id number] Ambulatory [address] Repository 08/25/2018 [id number] Ambulatory [facility] HospitalBuild Hospital ing:LAB Repository 08/14/2018/08/14/20 [id number] Ambulatory [address] [place] Repository 08/14/2018/08/14/20 [id number] Ambulatory [address] Repository 08/14/2018/08/15/20 [id number] Ambulatory [address] [place] Repository 08/10/2018/08/11/20 [id number] Ambulatory [address] [place] Repository 06/15/2018/06/15/20 [id number] Ambulatory [address] [place] Repository 05/17/2018/05/18/20 [id number] Ambulatory [address] [place] Repository 05/12/2018 [id number] Ambulatory [facility] HospitalBuild Hospital ing:LAB.FUTUR Repository E 05/05/2018 [id number] Ambulatory [facility] Hospital[facility] Hospital ing:LAB.FUTUR Repository E 04/21/2018 [id number] Ambulatory [facility] Hospital[facility] Hospital ing:LAB Repository 04/10/2018/04/10/20 [id number] Ambulatory BMSBuilding:B [place] 18 MS.[facility] Repository 03/27/2018/03/27/20 [id number] Ambulatory BMSBuilding:B [place] 18 MS.[facility] Repository 03/13/2018 [id number] Ambulatory [facility] HospitalBuild Hospital ing:PSN Repository 03/13/2018 [id number] Ambulatory BMSBuilding:W [facility] Repository 03/07/2018 [id number] Ambulatory [facility] HospitalBuild Hospital ing:PSN Repository 03/07/2018 [id number] Ambulatory BMSBuilding:W Yehuda [facility] Repository 02/27/2018 [id number] Ambulatory [facility] Hospital ing:LAB Repository 02/14/2018/02/16/20 [id number] Ambulatory [address] Repository 02/08/2018/02/09/20 [id number] [place] ing:PT Repository 01/25/2018 [id number] Ambulatory BMSBuilding:B [place].[facility] Repository 01/18/2018 [id number] Ambulatory [facility] ing:LAB Repository 01/13/2018/01/14/20 [id number] Ambulatory BMSBuilding:B [place] 18 MS.[facility] Repository 01/09/2018/01/11/20 [id number] Ambulatory [address] Repository 01/07/2018 [id number] Ambulatory [facility] ing:LAB.FUTUR Repository E 12/28/2017 [id number] Ambulatory BMSBuilding:B [place] MS.[facility] Repository 12/22/2017/01/02/20 [id number] Robert, Haider Chi Inpatient [place] 18 Encounter [facility] ing:TCURoom: Repository REQ89Wky: 1 12/16/2017/12/23/19 [id number] [place], Inpatient [place] 18 [place] Encounter [facility] ing:PCURoom: Repository PXQ471Qsc: 1 12/16/2017 [id number] [place], Ambulatory BMSBuilding:B [place] Ghasem MS.[facility] Repository 12/16/2017 [id number] [place], Ambulatory BMSBuilding:B [place] Ghasem MS.[facility] Repository 12/16/2017 [id number] [place], Ambulatory BMSBuilding:B [place] Ghasem [facility] Repository 12/16/2017 [id number] [place], Ambulatory BMSBuilding:B [place] Ghasem MS.[facility] Repository 12/16/2017 [id number] [place], Ambulatory BMSBuilding:B [place] Ghasem MS.CF.[facility] Repository 12/16/2017 [id number] [place], Ambulatory BMSBuilding:B Yehuda Russellasem MS.[facility] Repository 12/16/2017 [id number] [place], Ambulatory BMSBuilding:B [place] Davism MS.CF.[facility] Repository 12/16/2017 [id number] [place]helf, Ambulatory BMSBuilding:B [place] Russellasem MS.[facility] Repository 12/16/2017 [id number] [place], Ambulatory BMSBuilding:B [place] Russellasem MS.CF.[facility] Repository 12/16/2017 [id number] [place], Ambulatory BMSBuilding:B Y[place] Davism MS.[facility] Repository 12/16/2017 [id number] [place], Ambulatory BMSBuilding:W [place] Ghasem [facility] Repository 12/16/2017 [id number] [place], Ambulatory BMSBuilding:B [place] Davism MS.CF.[facility] Repository 12/16/2017/12/23/19 [id number] Ambulatory BMSBuilding:W [place] 18 [facility] Repository 12/13/2017 [id number] Ambulatory [facility] Hospital ing:LABSPEC Repository 12/13/2017/12/14/19 [id number] Ambulatory BMSBuilding:B [place] 18 MS.[facility] Repository 11/24/2017 [id number] Ambulatory [facility] Hospital ing:LAB Repository 11/09/2017/11/11/19 [id number] Ambulatory [address] Repository 10/26/2017/10/26/19 [id number] Ambulatory BMSBuilding:B [place] 18 [place].[facility] Repository 10/21/2017/10/21/19 [id number] Ambulatory BMSBuilding:B [place] 18 MS.[facility] Repository PAYERS PAYERS ENCOUNTER GUARANTOR PAYER SUBSCRIBER SOURCE 10/04/2018 ANTIONETTE [id number] Primary ANTIONETTE DAVIS Insurance:MEDICARE TOKARDOB: [facility] [address], PART A BPolicy Number: [id number] [facility] [address]Tql: [phone] [id number] Repository [phone] () Date:2018-10-04 10/04/2018 Secondary ANTIONETTE F [place] Insurance:HUMANA TOKARDOB: Community COMMERCIALPolicy [id number] Hospital Number: Repository [id number] Date:6271-54-32[place] [address]2012[address]WP: 10/04/2018 Tertiary NOT GIVENUNK [place] Insurance:SELF PAY [facility] Number: Effective Repository Date:2018-10-04 09/29/2018 ANTIONETTE F [id number] Primary ANTIONETTE F [place] Insurance:MEDICARE TOKARDOB: Community [address], PART A BPolicy Number: [id number] Cancer Center [address]Kfr: [phone] [id number] Repository [phone] () Date:2018-04-10 09/29/2018 Secondary ANTIONETTE F [place] Insurance:HUMANA TOKARDOB: Community COMMERCIALPolicy [id number] Hospital Number: Repository [id number] Date:8567-48-71OR[address] [address]BD: 09/29/2018 Tertiary NOT GIVENUNK [place] Insurance:SELF PAY [facility] Number: Effective Repository Date:2018-08-24 09/28/2018 ANTIONETTE F [id number] Primary ANTIONETTE F [place] Insurance:MEDICARE TOKARDOB: Community [address], PART A BPolicy Number: [id number] Cancer Center [address]Odl: [phone] [id number] Repository [phone] () Date:2009-06-12 09/28/2018 Secondary ANTIONETTE F [place] Insurance:HUMANA TOKARDOB: Community COMMERCIALPolicy [id number] Hospital Number: Repository [id number] Date:3206-07-91KG[address] [address]AM: 09/28/2018 Tertiary NOT GIVENUNK [place] Insurance:SELF PAY [facility] Number: Effective Repository Date:2018-09-19 09/26/2018 ANTIONETTE F [id number] Primary ANTIONETTE F [place] Insurance:MEDICARE TOKARDOB: Community [address], PART A BPolicy Number: [id number] Cancer Center [address]Ytg: [phone] [id number] Repository [phone] () Date:2018-09-26 09/26/2018 Secondary ANTIONETTE F [place] Insurance:HUMANA TOKARDOB: [facility] [id number] Hospital Number: Repository [id number] Date:0619-45-77VC[address] [address]DP: 09/26/2018 Tertiary NOT GIVENUNK [place] Insurance:SELF PAY [facility] Hospital Number: Effective Repository Date:2018-09-26 09/19/2018 ANTIONETTE F [id number] Primary ANTIONETTE F [place] Insurance:MEDICARE TOKARDOB: Community [address], PART A BPolicy Number: [id number] Cancer Center [address]Sxs: [phone] [id number] Repository [phone] () Date:2018-03-27 09/19/2018 Secondary ANTIONETTE F [place] Insurance:HUMANA TOKARDOB: [facility] [id number] Hospital Number: Repository [id number] Date:9201-55-72BB[address] [address]WO: 09/19/2018 Tertiary NOT GIVENUNK [place] Insurance:SELF PAY [facility] Hospital Number: Effective Repository Date:2018-09-14 09/15/2018 ANTIONETTE F [id number] Primary ANTIONETTE F [place] Insurance:MEDICARE TOKARDOB: Community [address], PART A BPolicy Number: [id number] Cancer Center [address]Dme: [phone] [id number] Repository [phone] (HP) Date:2018-03-27 09/15/2018 Secondary ANTIONETTE F [place] Insurance:HUMANA TOKARDOB: Community COMMERCIALPolicy [id number] Hospital Number: Repository [id number] Date:4661-76-62ZM [address] [address]OP: 09/15/2018 Tertiary NOT GIVENUNK [place] Insurance:SELF PAY [facility] Number: Effective Repository Date:2018-03-27 09/15/2018 ANTIONETTE F [id number] Primary ANTIONETTE F [place] Insurance:MEDICARE TOKARDOB: Community [address], PART A BPolicy Number: [id number] Cancer Center [address]Xqd: 330 [id number] Repository [phone] () Date:2018-03-27 09/15/2018 Secondary ANTIONETTE F [place] Insurance:HUMANA TOKARDOB: [facility] [id number] Hospital Number: Repository [id number] Date:4022-66-56VF[address] [address]QY: 09/15/2018 Tertiary NOT GIVENUNK [place] Insurance:SELF PAY [facility] Number: Effective Repository Date:2018-09-15 08/25/2018 ANTIONETTE F [id number] Primary ANTIONETTE F [place] Insurance:MEDICARE TOKARDOB: Community [address], PART A BPolicy Number: [id number] Cancer Center [address]Lyc: 330 [id number] Repository [phone] () Date:2018-08-25 08/25/2018 Secondary ANTIONETTE F [place] Insurance:HUMANA TOKARDOB: [facility] [id number] Hospital Number: Repository [id number] Date:2802-86-60UN[address] [address]FM: 08/25/2018 Tertiary NOT GIVENUNK [place] Insurance:SELF PAY [facility] Number: Effective Repository Date:2018-08-25 05/12/2018 ANTIONETTE F [id number] Primary ANTIONETTE F [place] Insurance:MEDICARE TOKARDOB: Community [address], PART A BPolicy Number: [id number] Cancer Center [address]18[address]Mtl: 330 [id number] Repository [phone] () Date:2018-05-05 05/12/2018 Secondary ANTIONETTE F [place] Insurance:HUMANA TOKARDOB: [facility] [id number] Hospital Number: Repository [id number] Date:6035-90-25AY [address] [address]NC: 05/12/2018 Tertiary NOT GIVENUNK [place] Insurance:SELF PAY [facility] Hospital Number: Effective Repository Date:2018-05-05 05/05/2018 ANTIONETTE F [id number] Primary ANTIONETTE F [place] Insurance:MEDICARE TOKARDOB: Community [address], PART A BPolicy Number: [id number] Cancer Center [address]Vtu: 330 [id number] Repository [phone] () Date:2018-05-05 05/05/2018 Secondary ANTIONETTE F [place] Insurance:HUMANA TOKARDOB: [facility]CIAL[facility] [id number] Hospital Number: Repository [id number] Date:0600-85-88KE[address] [address]FD: 05/05/2018 Tertiary NOT GIVENUNK [place] Insurance:SELF PAY [facility] Hospital Number: Effective Repository Date:2018-05-05 04/21/2018 ANTIONETTE F [id number] Primary ANTIONETTE F [place] Insurance:MEDICARE TOKARDOB: Community [address], PART A olicy Number: [id number] Cancer Center [address]Syk: 330 [id number] Repository [phone] () Date:2018-04-21 04/21/2018 Secondary ANTIONETTE F [place] Insurance:HUMANA TOKARDOB: [facility]CIALUpper [facility] [id number] Hospital Number: Repository [id number] Date:4779-36-98XT [address] [address]PR: 04/21/2018 Tertiary NOT GIVENUNK [place] Insurance:SELF PAY [facility] Number: Effective Repository Date:2018-04-21 04/10/2018 ANTIONETTE F [id number] Primary ANTIONETTE F [place] Insurance:MEDICARE TOKARDOB: Community [address] PART A BPolicy Number: [id number] [id number] Repository [address]Luq: (485) Date:2017-08-31 [phone] () 04/10/2018 Secondary ANTIONETTE F [place] Insurance:HUMANA TOKARDOB: Community COMMERCIALPolic [id number] Hospital Number: Repository [id number] Date:0766-68-79MP[address] [address]CV: 04/10/2018 Tertiary NOT GIVENUNK [place] Insurance:SELF PAY [facility] Hospital Number: Effective Repository Date:2018-04-07 03/27/2018 ANTIONETTE F [id number] Primary ANTIONETTE F [place] Insurance:MEDICARE TOKARDOB: Community [address], PART A BPolicy Number: [id number] Cancer Center [address]Rve: [phone]) [id number] Repository [phone] () Date:2018-01-13 03/27/2018 Secondary ANTIONETTE F [place] Insurance:HUMANA TOKARDOB: Community COMMERCIALPolicy [id number] Hospital Number: Repository [id number] Date:1608-15-32DK[address] [address]JB: 03/27/2018 Tertiary NOT GIVENUNK [place] Insurance:SELF PAY [facility] Number: Effective Repository Date:2018-03-20 03/13/2018 ANTIONETTE F [id number] Primary ANTIONETTE F [place] Insurance:MEDICARE TOKARDOB: Community [address], PART A BPolicy Number: [id number] Cancer Center [address]Rtn: [phone]) [id number] Repository [phone] () Date:2017-10-26 03/13/2018 Secondary ANTIONETTE F [place] Insurance:HUMANA TOKARDOB: Community COMMERCIALPolicy [id number] Hospital Number: Repository [id number] Date:7124-01-89ZD[address] [address]FV: 03/13/2018 Tertiary NOT GIVENUNK [place] Insurance:SELF PAY [facility] Number: Effective Repository Date:2017-10-26 03/13/2018 ANTIONETTE F [id number] Primary ANTIONETTE F [place] Insurance:MEDICARE TOKARDOB: Community [address] PART A BPolicy Number: [id number] [id number] Repository [address]Hzz: 330) Date:2017-10-26 [phone] () 03/13/2018 Secondary ANTIONETTE F [place] Insurance:HUMANA TOKARDOB: Community COMMERCIALPolicy [id number] Hospital Number: Repository [id number] Date:2708-74-41ZM[address] [address]DE: 03/13/2018 Tertiary NOT GIVENUNK [place] Insurance:SELF PAY [facility] Number: Effective Repository Date:2018-03-13 03/07/2018 ANTIONETTE F [id number] Primary ANTIONETTE F [place] Insurance:MEDICARE TOKARDOB: Community [address] [place] [address], PART A BPolicy Number: [id number] Cancer Center [address]Sas: [phone]) [id number] Repository [phone] () Date:2017-10-26 03/07/2018 Secondary ANTIONETTE F [place] Insurance:HUMANA TOKARDOB: Community COMMERCIALPolicy [id number] Hospital Number: Repository [id number] Date:1412-44-26QU[address] [address]AR: 03/07/2018 Tertiary NOT GIVENUNK [place] Insurance:SELF PAY [facility] Number: Effective Repository Date:2017-10-26 03/07/2018 ANTIONETTE F [id number] Primary ANTIONETTE F [place] Insurance:MEDICARE TOKARDOB: Community [address] PART A BPolicy Number: [id number] [id number] Repository [address]Ggw: 330) Date:2017-10-26 [phone] () 03/07/2018 Secondary ANTIONETTE F [place] Insurance:HUMANA TOKARDOB: [facility] [id number] Hospital Number: Repository [id number] Date:3067-62-42CF[address] [address]FX: 03/07/2018 Tertiary NOT GIVENUNK [place] Insurance:SELF PAY [facility] Number: Effective Repository Date:2018-03-07 02/27/2018 ANTIONETTE F [id number] Primary ANTIONETTE F [place] Insurance:MEDICARE TOKARDOB: Community [address] PART A BPolicy Number: [id number] Cancer Center [address]Djm: 330 [id number] Repository [phone] () Date:2018-02-27 02/27/2018 Secondary ANTIONETTE F [place] Insurance:HUMANA TOKARDOB: [facility] [id number] Hospital Number: Repository [id number] Date:4814-88-14RT[address] [address]YN: 02/27/2018 Tertiary NOT GIVENUNK [place] Insurance:SELF PAY [facility] Hospital Number: Effective Repository Date:2018-02-27 02/08/2018 ANTIONETTE F [id number] Primary ANTIONETTE F [place] Insurance:MEDICARE TOKARDOB: Community [address] [address] BPolicy Number: [id number] [address]Nfi: [phone] [id number] Repository [phone] () Date:2009-06-12 02/08/2018 Secondary ANTIONETTE F [place] Insurance:HUMANA TOKARDOB: Community COMMERCIALPolicy [id number] Hospital Number: Repository [id number] Date:6547-93-00FM[address] [address]VJ: 02/08/2018 Tertiary NOT GIVENUNK [place] Insurance:SELF PAY [facility] Number: Effective Repository Date:2018-01-03 01/25/2018 ANTIONETTE F [id number] Primary [place]ETTE [place] Insurance:MEDICARE TOKARDOB: Community [address] BPolicy Number: [id number] [facility] [address]Avk: [phone] [id number] Repository [phone] () Date:2017-10-26 01/25/2018 Secondary AN[place]IONETTE F [place] Insurance:HUMANA TOKARDOB: Community COMMERCIALPolicy [id number] Hospital Number: Repository [id number] Date:4400-12-[place] [address]WP: 01/25/2018 Tertiary NOT GIVENUNK [place] Insurance:SELF PAY [facility] Number: Effective Repository Date:2017-10-26 01/18/2018 ANTIONETTE F [id number] Primary ANTIONETTE F [place] Insurance:MEDICARE TOKARDOB: Community [address] BPolicy Number: [id number] Cancer Center [address]Jcf: [phone] [id number] Repository [phone] () Date:2018-01-18 01/18/2018 Secondary ANTIONETTE F [place] Insurance:HUMANA TOKARDOB: Community COMMERCIALPolicy [id number] Hospital Number: Repository [id number] Date:2225-47-20WG[address] [address]BH: 01/18/2018 Tertiary NOT GIVENUNK [place] Insurance:SELF PAY [facility] Number: Effective Repository Date:2018-01-18 01/13/2018 ANTIONETTE F [id number] Primary AN[place]IONETET F [place] Insurance:MEDICARE TOKARDOB: Community [address] BPolicy Number: [id number] [facility] [address]Stb: [phone] [id number] Repository [phone] () Date:2018-01-02 01/13/2018 Secondary ANTIONETTE F [place] Insurance:HUMANA TOKARDOB: Community COMMERCIALPolicy [id number] Hospital Number: Repository [id number] Date:3215-67-38RH [address] [address]SU: 01/13/2018 Tertiary NOT GIVENUNK [place] Insurance:SELF PAY [facility] Number: Effective Repository Date:2018-01-11 01/07/2018 ANTIONETTE F [id number] Primary ANTIONETTE [place] Insurance:MEDICARE TOKARDOB: Community [address] BPolicy Number: [id number] Cancer Center [address]Otq: 330 [id number] Repository [phone] () Date:2018-01-05 01/07/2018 Secondary ANTIONETTE F [place] Insurance:HUMANA TOKARDOB: [facility] [id number] Hospital Number: Repository [id number] Date:1116-83-48BQ[address] [address]UL: 01/07/2018 Tertiary NOT GIVENUNK [place] Insurance:SELF PAY [facility] Hospital Number: Effective Repository Date:2018-01-05 12/28/2017 ANTIONETTE F [id number] Primary [place]IONETTE [place] Insurance:MEDICARE TOKARDOB: Community [address] BPolicy Number: [id number] Cancer Center [address]Vig: [phone] [id number] Repository [phone] () Date:2017-12-13 12/28/2017 Secondary ANTIONETTE F [place] Insurance:HUMANA TOKARDOB: Community COMMERCIALPolicy [id number] Hospital Number: Repository [id number] Date:6791-21-10XV [address] [address]YK: 12/28/2017 Tertiary NOT GIVENUNK [place] Insurance:SELF PAY [facility] Number: Effective Repository Date:2017-12-13 12/22/2017 ANTIONETTE F [id number] Primary [place]IONETTE [place] Insurance:MEDICARE TOKARDOB: Community [address] BPolicy Number: [id number] Cancer Center [address]Lbz: [phone] [id number] Repository [phone] () Date:2017-12-22 12/22/2017 Secondary ANTIONETTE F [place] Insurance:HUMANA TOKARDOB: [facility] [id number] Hospital Number: Repository [id number] Date:4652-34-24FL [address] [address]EB: 12/22/2017 Tertiary NOT GIVENUNK [place] Insurance:SELF PAY [facility] Number: Effective Repository Date:2017-12-22 12/16/2017 ANTIONETTE F [id number] Primary [place]IONETTE [place] Insurance:MEDICARE TOKARDOB: Community [address] BPolicy Number: [id number] Cancer Center [address]Lzw: [phone] [id number] Repository [phone] () Date:2017-12-16 12/16/2017 Secondary ANTIONETTE F [place] Insurance:HUMANA TOKARDOB: [facility] [id number] Hospital Number: Repository [id number] Date:5562-43-71HG [address] [address]RO: 12/16/2017 Tertiary NOT GIVENUNK [place] Insurance:SELF PAY [facility] Number: Effective Repository Date:2017-12-16 12/16/2017 ANTIONETTE F [id number] Primary ANTIONETTE [place] Insurance:MEDICARE TOKARDOB: Community [address] BPolicy Number: [id number] Cancer Center [address]Zqh: [phone] [id number] Repository [phone] () Date:2017-12-16 12/16/2017 Secondary ANTIONETTE F [place] Insurance:HUMANA TOKARDOB: Community COMMERCIALPolicy [id number] Hospital Number: Repository [id number] Date:0742-91-15JM[address] [address]II: 12/16/2017 Tertiary NOT GIVENUNK [place] Insurance:SELF PAY [facility] Number: Effective Repository Date:2017-12-16 12/16/2017 ANTIONETTE F [id number] Primary [place]TE [place] Insurance:MEDICARE TOKARDOB: Community [address] BPolicy Number: [id number] Cancer Center [address]Bic: 330 [id number] Repository [phone] () Date:2017-12-16 12/16/2017 Secondary ANTIONETTE F [place] Insurance:HUMANA TOKARDOB: Community COMMERCIALPolicy [id number] Hospital Number: Repository [id number] Date:4236-07-19DW[address] [address]OF: 12/16/2017 Tertiary NOT GIVENUNK [place] Insurance:SELF PAY [facility] Number: Effective Repository Date:2017-12-16 12/16/2017 ANTIONETTE F [id number] Primary [place]ET [place] Insurance:MEDICARE TOKARDOB: Community [address] BPolicy Number: [id number] Cancer Center [address]Edb: 330 [id number] Repository [phone] () Date:2017-12-16 12/16/2017 Secondary ANTIONETTE F [place] Insurance:HUMANA TOKARDOB: Community COMMERCIALPolic [id number] Hospital Number: Repository [id number] Date:3436-21-80SG[address] [address]ZP: 12/16/2017 Tertiary NOT GIVENUNK [place] Insurance:SELF PAY [facility] Number: Effective Repository Date:2017-12-16 12/16/2017 ANTIONETTE F [id number] Primary ANTIONETTE [place] Insurance:MEDICARE TOKARDOB: Community [address] BPolicy Number: [id number] Cancer Center [address]Luu: 330 [id number] Repository [phone] () Date:2017-12-16 12/16/2017 Secondary ANTIONETTE F [place] Insurance:HUMANA TOKARDOB: [facility] [id number] Hospital Number: Repository [id number] Date:3768-22-36XI[address] [address]MD: 12/16/2017 Tertiary NOT GIVENUNK [place] Insurance:SELF PAY [facility] Hospital Number: Effective Repository Date:2017-12-16 12/16/2017 ANTIONETTE F [id number] Primary [place]ETTE [place] Insurance:MEDICARE TOKARDOB: Community [address] BPolicy Number: [id number] Cancer Center [address]Rxr: 330 [id number] Repository [phone] () Date:2017-12-16 12/16/2017 Secondary ANTIONETTE F [place] Insurance:HUMANA TOKARDOB: [facility] [id number] Hospital Number: Repository [id number] Date:1312-21-47RD[address] [address]SR: 12/16/2017 Tertiary NOT GIVENUNK [place] Insurance:SELF PAY [facility] Hospital Number: Effective Repository Date:2017-12-16 12/16/2017 ANTIONETTE F [id number] Primary AN[place]IONETTE [place] Insurance:MEDICARE TOKARDOB: Community [address] BPolicy Number: [id number] Cancer Center [address]Kod: 330 [id number] Repository [phone] () Date:2017-12-16 12/16/2017 Secondary ANTIONETTE F [place] Insurance:HUMANA TOKARDOB: [facility]CIAL[facility] [id number] Hospital Number: Repository [id number] Date:2865-43-80UZ [address] [address]WY: 12/16/2017 Tertiary NOT GIVENUNK [place] Insurance:SELF PAY [facility]: Effective Repository Date:2017-12-16 12/16/2017 ANTIONETTE F [id number] Primary ANTIONETTE [place] Insurance:MEDICARE TOKARDOB: Community [address] BPolicy Number: [id number] Cancer Center [address]Adq: [phone] [id number] Repository [phone] () Date:2017-12-16 12/16/2017 Secondary ANTIONETTE F [place] Insurance:HUMANA TOKARDOB: [facility] COMM[facility]CIAL[facility] [id number] Hospital Number: Repository [id number] Date:0248-77-05WJ[address] [address]SB: 12/16/2017 Tertiary NOT GIVENUNK [place] Insurance:SELF PAY [facility] Hospital Number: Effective Repository Date:2017-12-16 12/16/2017 ANTIONETTE F [id number] Primary [place]IONETTE [place] Insurance:MEDICARE TOKARDOB: Community [address] A BPolicy Number: [id number] Cancer Center [address]Ipz: ([phone] [id number] Repository [phone] () Date:2017-12-16 12/16/2017 Secondary ANTIONETTE F [place] Insurance:HUMANA TOKARDOB: [facility] COMM[facility]CIALUpper [facility] [id number] Hospital Number: Repository [id number] Date:1645-22-96IY[address] [address]MD: 12/16/2017 Tertiary NOT GIVENUNK [place] Insurance:SELF PAY [facility] Number: Effective Repository Date:2017-12-16 12/16/2017 ANTIONETTE F [id number] Primary AN[place]IONETTE [place] Insurance:MEDICARE TOKARDOB: Community [address] BPolicy Number: [id number] Cancer Center [address]Waq: ([phone] [id number] Repository [phone] () Date:2017-12-16 12/16/2017 Secondary ANTIONETTE F [place] Insurance:HUMANA TOKARDOB: Community COMMERCIALPoly [id number] Hospital Number: Repository [id number] Date:6376-61-42QL [address] [address]EC: 12/16/2017 Tertiary NOT GIVENUNK [place] Insurance:SELF PAY [facility] Number: Effective Repository Date:2017-12-16 12/16/2017 ANTIONETTE F [id number] Primary [place]ETTE [place] Insurance:MEDICARE TOKARDOB: Community [address] BPolicy Number: [id number] Cancer Center [address]Pdv: 330 [id number] Repository [phone] () Date:2017-12-16 12/16/2017 Secondary ANTIONETTE F [place] Insurance:HUMANA TOKARDOB: [facility] [id number] Hospital Number: Repository [id number] Date:3434-22-61IL[address] [address]JG: 12/16/2017 Tertiary NOT GIVENUNK [place] Insurance:SELF PAY [facility] Hospital Number: Effective Repository Date:2017-12-16 12/16/2017 ANTIONETTE F [id number] Primary [place]IONETTE [place] Insurance:MEDICARE TOKARDOB: [place] [address] A BPolicy Number: [id number] Cancer Center [address]Bqz: 330 [id number] Repository [phone] () Date:2017-12-16 12/16/2017 Secondary ANTIONETTE F [place] Insurance:HUMANA TOKARDOB: Community COMMERCIALPolicy [id number] Hospital Number: Repository [id number] Date:9983-52-34ID [address] [address]LG: 12/16/2017 Tertiary NOT GIVENUNK [place] Insurance:SELF PAY [facility] Number: Effective Repository Date:2017-12-16 12/16/2017 ANTIONETTE F [id number] Primary [place]IONETTE [place] Insurance:MEDICARE TOKARDOB: Community [address] olicy Number: [id number] Cancer Center [address]Atf: 330 [id number] Repository [phone] () Date:2017-12-16 12/16/2017 Secondary ANTIONETTE F [place] Insurance:HUMANA TOKARDOB: [facility] [id number] Hospital Number: Repository [id number] Date:4218-59-90RU [address] [address]VG: 12/16/2017 Tertiary NOT GIVENUNK [place] Insurance:SELF PAY [facility] Hospital Number: Effective Repository Date:2017-12-16 12/16/2017 ANTIONETTE F [id number] Primary [place]IONETTE [place] Insurance:MEDICARE TOKARDOB: [place] [address] olicy Number: [id number] Cancer Center [address]Izt: 330 [id number] Repository [phone] () Date:2017-12-16 12/16/2017 Secondary ANTIONETTE F [place] Insurance:HUMANA TOKARDOB: [facility] COMM[facility]CIAL[facility] [id number] Hospital Number: Repository [id number] Date:0586-03-96LS[address] [address]WV: 12/16/2017 Tertiary NOT GIVENUNK [place] Insurance:SELF PAY [facility] Hospital Number: Effective Repository Date:2017-12-16 12/13/2017 ANTIONETTE F [id number] Primary [place]IONETTE [place] Insurance:MEDICARE TOKARDOB: [place] [address] olic Number: [id number] Cancer Center [address]Fxr: 330 [id number] Repository [phone] () Date:2017-12-13 12/13/2017 Secondary ANTIONETTE F [place] Insurance:HUMANA TOKARDOB: Community COMMERCIALPolicy [id number] Hospital Number: Repository [id number] Date:9254-14-20GZ[address] [address]ME: 12/13/2017 Tertiary NOT GIVENUNK [place] Insurance:SELF PAY [facility] Number: Effective Repository Date:2017-12-13 12/13/2017 ANTIONETTE F [id number] Primary [place]ETTE [place] Insurance:MEDICARE TOKARDOB: Community [address] A BPolicy Number: [id number] Cancer Center [address]Zmg: [phone]) [id number] Repository [phone] () Date:2017-12-13 12/13/2017 Secondary ANTIONETTE F [place] Insurance:HUMANA TOKARDOB: Community [facility] [id number] Hospital Number: Repository [id number] Date:4172-24-83HY[address] [address]KZ: 12/13/2017 Tertiary NOT GIVENUNK [place] Insurance:SELF PAY [facility] Number: Effective Repository Date:2017-12-13 11/24/2017 ANTIONETTE F [id number] Primary [place]IONETTE [place] Insurance:MEDICARE TOKARDOB: Community [address] A BPolicy Number: [id number] Cancer Center [address]Rbh: 330 [id number] Repository [phone] () Date:2017-11-24 11/24/2017 Secondary ANTIONETTE F [place] Insurance:HUMANA TOKARDOB: Community COMMERCIALPolicy [id number] Hospital Number: Repository [id number] Date:8609-78-04RM[address] [address]DM: 11/24/2017 Tertiary NOT GIVENUNK [place] Insurance:SELF PAY [facility] Number: Effective Repository Date:2017-11-24 10/26/2017 ANTIONETTE F [id number] Primary [place]IONETTE [place] Insurance:MEDICARE TOKARDOB: Community [address] A BPolicy Number: [id number] Cancer Center [address]Agg: 330 [id number] Repository [phone] () Date:2017-08-22 10/26/2017 Secondary ANTIONETTE F [place] Insurance:HUMANA TOKARDOB: Community COMMERCIALPolicy [id number] Hospital Number: Repository [id number] Date:6380-78-32OS [address] [address]EZ: 10/26/2017 Tertiary NOT GIVENUNK [place] Insurance:SELF PAY [facility] Number: Effective Repository Date:2017-08-22 10/21/2017 ANTIONETTE F [id number] Primary ANTIONETTE F [place] [facility] Insurance:MEDICARE TOKARDOB: Community [address] A BPolicy Number: [id number] Cancer Center [address]Fmq: 330 [id number] Repository [phone] () Date:2017-10-21 10/21/2017 Secondary ANTIONETTE F [place] Insurance:HUMANA TOKARDOB: Community COMMERCIALPolicy [id number] Hospital Number: Repository [id number] Date:1948-09-68PP[address] [address]HO: 10/21/2017 Tertiary NOT GIVENUNK [place] Insurance:SELF PAY [facility] Number: Effective Repository Date:2017-10-21
== END ==
PROVIDERS: Family Provider Internal Medicine; PCP Internal Medicine
DX: D80.1 Nonfamilial hypogammaglobulinemia (principal)
CPT/HCPCS: 36415

== ENCOUNTER → 2018-09-15 08:54 | Outpatient (CLI) | payer MEDICARE, OTHER, SELFPAY ==
[2018-08-25 11:26] VITALS: BMI 39.3
[2018-09-15 09:26] VITALS: PULSE 100; PULSE 103; PULSE 104; PULSE 80; PULSE 81; PULSE 92; O2SAT 91; O2SAT 92; O2SAT 93; O2SAT 94; O2SAT 96; O2SAT 97
--- NOTE | 2018-09-15 13:11 | PCM.PSN.6M ---
PSN 6 Minute Walk Test - 6 Minute Walk Test 6 Minute Walk Test: 6 Minute Walk Test PSN:6-Minute Walk Test Start: 09/15/18 09:25 Freq: Status: Active Protocol: RESP.6MINW Document 09/15/18 09:26 KORI (Rec: 09/15/18 09:28 KORI [id number]) 6 Minute Walk Test Date Performed 09/15/18 Time Performed 09:00 Height 5 ft 1 in Weight: 215 lb Weight in Pounds 215.[address]: Rosaline Sheikh Assistive device used: None Pre-test Oxygen Delivery Method Room Air Pulse Ox (%) 96 Pulse Rate (60-100 beats/min) 81 Dyspnea Austyn Scale (0-10) 0 Exertion Austyn Scale (6-20) 6 1st minute Oxygen Delivery Method Room Air Pulse Ox (%) 94 Pulse Rate (60-100 beats/min) 92 2nd minute Oxygen Delivery Method Room Air Pulse Ox (%) 93 Pulse Rate (60-100 beats/min) 100 3rd minute Oxygen Delivery Method Room Air Pulse Ox (%) 92 Pulse Rate (60-100 beats/min) 100 4th minute Oxygen Delivery Method Room Air Pulse Ox (%) 92 Pulse Rate (60-100 beats/min) 100 5th minute Oxygen Delivery Method Room Air Pulse Ox (%) 92 Pulse Rate (60-100 beats/min) 103 H 6th minute Oxygen Delivery Method Room Air Pulse Ox (%) 91 Pulse Rate (60-100 beats/min) 104 H Dyspnea Austyn Scale (0-10) 3 Exertion Austyn Scale (6-20) 14 Reported Symptoms Dizziness Post-test Oxygen Delivery Method Room Air Pulse Ox (%) 97 Pulse Rate (60-100 beats/min) 80 Full Laps Walked 16 Partial Lap, Number of Tiles Walked 0 Total Distance Walked (ft) 944 - Interpretation Interpretation: The patient ambulated 944 feet over the course of 6 minutes beginning on room air without assistive devices or breaks. Pretesting oxygen saturation was noted to be 96% on room air. With ambulation, the nathan oxygen saturation was 91%. This represents a significant exertional oxygen desaturation. - Recommendations Recommendations: There is no indication for the use of supplemental oxygen at this time. However, close interval follow-up is recommended, given the degree of oxygen desaturation noted during this study.
== END ==
PROVIDERS: Family Provider Internal Medicine; PCP Internal Medicine; Referring Provider Nurse Practitioner Acute Care; Visit Provider Nurse Practitioner Acute Care
DX: R06.02 Shortness of breath (principal)
CPT/HCPCS: 94618

== ENCOUNTER 2018-09-28 15:00 | Outpatient (RCR) | payer MEDICARE, OTHER, SELFPAY ==
[2018-09-19 10:11] VITALS: BMI 41.3
--- NOTE | 2018-09-25 14:41 | HP.PTEVAL_ITS ---
Patient's Visit Information ANTIONETTE VELIZ is a 73 year old F referred to Physical Therapy by Dawson Rojo MD with a diagnosis of BPPV. Date of Evaluation: 09/25/18 Physical Therapist: Dawson Pham, DPT, OCS, CSCS - Visit Plan Frequency: 1-2x /Week Duration: 2-4 Weeks Plan: 1-2x/week for 2-4 weeks for positional treatments as needed and ensure balance and safety. - Subjective Findings: AT 67 had some dizzyness and had crystals moved and it helped. Dizzyness got worse sometime in July after getting sick. [place] bad for two weeks adn had UTI. Also had MONZON and fatigue. Currently dizzyness is intermittent. Causes her to lie down as it makes her feel bad if she moves too much, bending ,stooping. Gets spinning if she lies down on bed. This is brief but annoying/upsetting, only when lying down in bed. Gets it every other day. Sleeping is OK, has bipap. Activities are limited in that she has to lie down and take it easy if she feels bad. Otherwise not avoiding much. Avoids stores if she is dizzy. Balance is OK most of time, had balance treatment which helped. - Objective Walks back to PT slowly but safely, trasnfers I, steps are with rail mod I. c/s aROM WFL adn withotu dizzyness or pain. - R hallpike. + L hallpike for up torsional nystagmus of 10 second duration. Treated with Laila Fuentes and then sent home with education. - Balance Scores Functional Gait Assessment Score: 21 % Disability: 30.0000 - Goals Goal 1:: Abolish dizzyness 100%. Goal Time Frame: 2-4 Weeks Goal 2:: FGA to improve stability. Goal Time Frame: 4-6 Weeks - Rehabilitation Potential Physical Therapy Diagnosis: L BPPY post canal. Rehabilitation Potential: Good - Anticipated Interventions Patient/Client Instruction: Educate patient on: Condition, Plan of Care For the Purpose of:: To increase tolerance to activity/condition/position Therapeutic Exercise to Include: Balance training Comment: positional For the Purpose of:: To increase tolerance to activity/condition/position, To improve gait and locomotor functions Thank you for the opportunity to evaluate your patient. For Medicare and Medicare HMO plans, please review the plan of care and approve it. It will need to be FAXED BACK to us at [phone] for Medicare purposes. For Medicare only, by signing this I certify the plan of care. Please let me know if there are questions or concerns regarding this plan of care. Physician Signature: Date:
--- NOTE | 2018-11-16 11:20 | HP.PT.NRP ---
HP - Discharge Summary (1) - Patient Information ANTIONETTE VELIZ was seen in my office for initial evaluation on 09/25/18. The following Plan of Care was established for this patient: Initial Frequency: 1-2x /Week Initial Duration: 2-4 Weeks - Anticipated Interventions Patient/Client Instruction: Educate patient on: Condition, Plan of Care For the Purpose of:: To increase tolerance to activity/condition/position Therapeutic Exercise to Include: Balance training For the Purpose of:: To increase tolerance to activity/condition/position, To improve gait and locomotor functions This patient was last seen in our office 09/28/18. Pertinent comments regarding their Physical therapy will appear below: Pt seen 2 visits of POC. She neglected to attend any further visits. I iwll discontinue due to nonattendance as it has been over 6 weeks. At this point I will be discontinuing this patient from physical therapy. I would be happy to see this patient again in the future if found appropriate by the physician. Thank you! Dawson Pham, DPT, OCS, CSCS
== END 2018-09-28 19:00 | disposition home or self-care (01) ==
LOC: PT 15:00
PROVIDERS: Family Provider Internal Medicine; PCP Internal Medicine; Referring Provider Otolaryngology; Visit Provider Otolaryngology
DX: H81.10 Benign paroxysmal vertigo, unspecified ear (principal)
CPT/HCPCS: 97162; 97530

== ENCOUNTER → 2018-11-02 12:55 | Outpatient (CLI) | payer MEDICARE, OTHER, SELFPAY ==
[2018-10-04 14:41] VITALS: BMI 41.3
[2018-10-31 09:16] VITALS: BMI 40.6
--- NOTE | 2018-11-02 12:56 | ECHOD_ITS ---
Reason For Study: DYSPNEA Procedure This was a 2D Doppler, Color Flow transthoracic echocardiogram. The study was technically difficult. Exam performed in department. Left Ventricle Normal LV size. Mild segmental systolic dysfunction (see wall motion). The estimated ejection fraction is 50 %. There is evidence of diastolic dysfunction. Mid-inferoseptal : Hypokinetic. Mid- anteroseptal : Hypokinetic. Anterior [place] : Akinetic. Inferior [place] : Akinetic. Septal [place] : Akinetic. Right Ventricle Normal RV size. Normal systolic function. Atria The left atrium is moderately enlarged. Normal right atrium. No doppler evidence for ASD. Mitral Valve There is mild mitral annular calcification. Mild diffuse mitral valve thickening. Mild (1+) mitral valve insufficiency. Tricuspid Valve Normal tricuspid valve. Mild to moderate (1-2+) eccentric tricuspid valve insufficiency. Right ventricular systolic pressure estimated to be 30 mmHg. Aortic Valve Trisinus/trileaflet aortic valve. Mild diffuse aortic valve thickening. Pulmonic Valve The pulmonic valve is not well visualized. Trivial pulmonic valve insufficiency. Great Vessels Normal sized aortic root. Pericardium/Pleural No pericardial effusion. MMode/2D Measurements & Calculations LVIDd: 5.1 cm IVSd: 0.95 cm Ao root diam: 3.5 cm LVIDs: 3.9 cm LVPWd: 1.0 cm RVDd: 3.4 cm FS: 24.0 % LAV(MOD-bp): 75.9 ml LA A4 area: 22.6 cm2 LA dimension(2D): 4.2 cm LAV(MOD-bp) Indexed: 38.7 ml/m2 LAV(MOD-sp2): 78.6 ml LAV(MOD-sp4): 68.4 ml RA A4 area: 13.9 cm2 Time Measurements MV dec time: 0.20 sec Doppler Measurements & Calculations MV E max yakov: 71.4 cm/sec Lat Peak E' Yakov: 7.0 cm/sec Med Peak E' Yakov: 4.3 cm/sec MV A max yakov: 89.2 cm/sec E/E' lat: 10.2 E/E' med: 16.8 MV E/A: 0.80 Ao V2 max: 130.1 cm/sec LV V1 max: 90.9 cm/sec PA V2 max: 119.2 cm/sec Ao max P.8 mmHg LV V1 max P.3 mmHg PI end-d yakov: 93.6 cm/sec TR max yakov: 259.7 cm/sec TR max P.0 mmHg Interpretation Summary The study was technically difficult. Mild segmental systolic dysfunction (see wall motion). The estimated ejection fraction is 50 %. The left atrium is moderately enlarged. There is mild mitral annular calcification. Mild diffuse mitral valve thickening. Mild (1+) mitral valve insufficiency. Mild to moderate (1-2+) eccentric tricuspid valve insufficiency. Mild diffuse aortic valve thickening. Trivial pulmonic valve insufficiency. Right ventricular systolic pressure estimated to be 30 mmHg. There is evidence of diastolic dysfunction. Ordering Physician: Abraham Aburto Referring Physician: MARY CHANG Performed By: Marisol Forman, SHERRIE, RVT
== END ==
PROVIDERS: Family Provider Internal Medicine; PCP Internal Medicine; Referring Provider Internal Medicine Cardiovascular Disease; Visit Provider Internal Medicine Cardiovascular Disease
DX: I25.5 Ischemic cardiomyopathy (principal)
CPT/HCPCS: 93306

== ENCOUNTER → 2018-12-22 09:31 | Outpatient (CLI) | payer MEDICARE, OTHER, SELFPAY ==
[2018-10-31 09:16] VITALS: BMI 40.6
== END ==
PROVIDERS: Family Provider Internal Medicine; PCP Internal Medicine
DX: D80.1 Nonfamilial hypogammaglobulinemia (principal)
CPT/HCPCS: 36415

== ENCOUNTER 2019-01-12 10:30 | Outpatient (RCR) | payer MEDICARE, OTHER, SELFPAY ==
[2018-10-31 09:16] VITALS: BMI 40.6
--- NOTE | 2018-12-18 13:09 | HP.PTEVAL_ITS ---
Patient's Visit Information ANTIONETTE VELIZ is a 73 year old F referred to Physical Therapy by Christi Oswald MD with a diagnosis of CHRONIC LOW BACK PAIN. Date of Evaluation: 12/18/18 Physical Therapist: eJsika Sales PT, Cert MDT - Visit Plan Frequency: 2-3x /Week Duration: 4-6 Weeks Plan: POSTURE CORRECTION/STRENGTHENING, INSTRUCTION IN APPROPRIATE BODY MECHANICS AND ACTIVITY MODIFICATIONS. DLS STARTING WITH A NEUTRAL SPINE PROGRESSING ROM TOLERATED. SINDHU LE ROM, STRETCHING AND STRENGTHENING. HEP INSTRUCTION. 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 Disability: NO. Present symptoms: LEFT LOW BACK, HIP AND THIGH. LEFT THIGH NUMBNESS MEDIAL THIGH, KNEE AND FOOT. Present since: APPROX 2017. Pain Scale: WORST 5/10, LEAST 0/10. Currently: 11/19. Commenced as a result of: NO APPARENT REASON. Symptoms at onset: SAME. Worse: SLEEPING AT NIGHT, BOTHERS ME AT NIGHT SOMETIMES MORE THAN OTHERS. WORKING AROUND THE HOUSE, TURNING/TWISTING, BENDING, LIFTING, BEING ON FEET FOR A LONG TIME, STOOPING. Better: MOTRIN (BUT I'M NOT SUPPOSED TO BE TAKING IT. ONE TIME LAST WEEK I TOOK 4 MOTRIN BECAUSE IT WAS REALLY HURTING). SITTING AND PUTTING LEFT LEG UP. Disturbed sleep: YES - ABOUT 3 AM I WAKE UP BECAUSE I AM HURTING AND LEG FEELS WORSE. TURNING IN BED DOESN'T GO WELL. Previous history/Previous treatment: THE SMALL OF MY BACK HAS NOT BEEN GOOD FOR A LONG TIME. NO BACK SURGERY. NO NOA'S OR PAIN MGMT. NO CHIROPRACTOR. NO LOW BACK PHYSICAL THERAPY. THIS EPISODE: NONE. Coughin g/sneezing/straining: NEGATIVE. Gait: SOMETIMES I LIMP NOW. NOT USING ANY ASSISTIVE DEVICES. Difficulty initiating urinatin: NO. Accidents: NO. Unexplained weight loss: NO. Imaging: RECENT LOW BACK AND LEFT HIP X-RAYS - PATIENT REPORTS THE NURSE TOLD HER SHE HAS A LOT OF ARTHRITIS THEREFORE BEING SENT TO PT. PMH/Recent major surgery: Hypogammaglobulinemia - COMPROMISES IMMUNE SYSTEM. HTN, HYPOTHYROIDISM, HEART DISEASE, A LOT OF RESPIRATORY PROBLEMS - MULTIPLE INHAILERS, HIGH CHOLESTEROL. NOT DIABETIC. NO CANCER. NO STROKE. TRIPLE BYPASS SURGERY 2016, AORTA SX 2016. 2017 - RSV AND ON RESPIRATOR FOR 3 DAYS. LEFT FOOT HAS HURT AND BEEN NUMB SINCE HER HEART SURGERY. - Objective Sitting/Standing Posture: POOR. Lordosis: REDUCED. Lateral shift: NO. Relevant shift: N/A. Active Correction of posture: BETTER. Other Observations: INDEP TRANSFER SIT TO STAND WITHOUT UE ASSIST. INDEP GAIT INTO PT WITH DECREASED CADANCE, INCREASED TRUNK FLEXION AND MILD LIMP ON LLE. Motor deficit: SINDHU LE WEAKNESS: HIPS 3+/5, KNEE EXT 4-/5, KNEE FLEX 4-/5, RIGHT ANKLE 5/5, LEFT 4/5. Sensory deficit: HYPERSENSATIVITY WITH TESTING OF LEFT LE COMPARED TO RIGHT. ROM deficit: VERY TIGHT SINDHU HIP FLEXORS, HSS'S AND GASTROC SOLEUS COMPLEX'S. Reflexes: 1/2 SINDHU LE'S. Dural Signs: POSITIVE SINDHU LE'S LEFT > RIGHT. Lumbar mvmt loss: flex - MOD. ext - MATT. R SG - MOD. L SG - MATT. PATIENT WITH C/O INCREASED LEFT LOW BACK/HIP/THIGH PAIN WITH LUMBAR ROM TESTING ALL PLANES. Core strength: POOR. Palpation: PATIENT REPORTS SHE DOES NOT LIKE ANYONE TOUCHING HER SPINE BUT SHE AGREES TO ALLOWING LIGHT PALPATION AND SHE REPORTS SORENESS WITH PALPATION THROUGHOUT THE LUMBAR REGION AND INTO THE LEFT PARASPINALS, BUTTOCK AND HIP REGIONS. - Goals Goal 1:: DECREASE C/O LEFT LOW BACK, HIP AND THIGH PAIN Goal Time Frame: 4-6 Weeks Goal 2:: IMPROVE PERSONAL CARE, LIFTING, WALKING, STANDING, SLEEP, SOCIAL LIFE, TRAVEL AND HOMEMAKING FUNCTION. Goal Time Frame: 4-6 Weeks Goal 3:: INSTRUCT IN PROPHYLAXIS Goal Time Frame: 4-6 Weeks - Rehabilitation Potential Rehabilitation Potential: Fair - Anticipated Interventions Patient/Client Instruction: Educate patient on: Condition, Plan of Care, Risk Factors, Benefits of Fitness Program For the Purpose of:: To improve self management Therapeutic Exercise to Include: Strength training, Body mechanics, Postural training, Dynamic Lumbar Stabilization For the Purpose of:: To decrease pain, To improve muscle performance and motor function, To increase tolerance to activity/condition/position, To improve ability of physical actions for home/community/work/leisure, To improve gait and locomotor functions Cryotherapy (ice pack, ice massage): Yes Thermo therapy (hot pack): Yes Ultrasound (thermal/non thermal): Yes For the Purpose of:: To decrease pain, To decrease swelling/inflammation, To improve nutrient delivery to tissue Thank you for the opportunity to evaluate your patient. For Medicare and Medicare HMO plans, please review the plan of care and approve it. It will need to be FAXED BACK to us at [phone] for Medicare purposes. For Medicare only, by signing this I certify the plan of care. Please let me know if there are questions or concerns regarding this plan of care. Physician Signature: Date:
--- NOTE | 2019-01-12 11:13 | HP.PTDCSUM ---
HP - PT D/C Summary It has been my pleasure to treat ANTIONETTE VELIZ under orders from Christi Oswald MD, for the diagnosis of CHRONIC LOW BACK PAIN for a total of 9 visit(s). Discharge Date: Please see the following information for a summary of their discharge status. - Subjective Subjective: PATIENT REPORTS SHE IS DOING PRETTY GOOD TODAY BUT REAL TIRED. I THINK I AM DOING GOOD. IT IS MUCH EASIER TO TAKE CARE OF MYSELF AND DO THINGS LIKE PULL MY PANTS ON. I CAN PEP AROUND. PATIENT REPORTS SHE DID GOOD AFTER DOING THE NEW EX'S LAST VISIT. STATES SHE HAS ONLY TAKEN MOTRIN ABOUT ONCE IN ABOUT 2 WEEKS. - Pain LOW BACK Pain Intensity (Out of 10): 0 LEFT LE Pain Intensity (Out of 10): 0 - Overall Improvement % Improvement: 90 - Objective Objective/Function: UPON EXAM TODAY PATIENT HAS SHOWED SIGNS OF SLWO IMPROVEMENT. Motor deficit: SINDHU LE WEAKNESS: HIPS 4-/5, KNEE EXT 4/5, KNEE FLEX 4/5, RIGHT ANKLE 5/5, LEFT ANKLE 4/5. Sensory deficit: NOT HAVING HYPERSENSATIVITY WITH TESTING OF LEFT LE COMPARED TO RIGHT TODAY. ROM deficit: VERY TIGHT SINDHU HIP FLEXORS, HSS'S AND GASTROC SOLEUS COMPLEX'S. Dural Signs: POSITIVE SINDHU LE'S LEFT > RIGHT. Lumbar mvmt loss: flex - MIN. ext - MATT. R SG - MOD. L SG - MATT. PATIENT WITH C/O INCREASED LEFT LOW BACK/HIP/THIGH PAIN WITH LUMBAR ROM TESTING INTO LEFT SG. Core strength: POOR. Palpation: PATIENT REPORTS SHE DOES NOT LIKE ANYONE TOUCHING HER SPINE BUT SHE AGREES TO ALLOWING LIGHT PALPATION AND SHE REPORTS SORENESS WITH PALPATION THROUGHOUT THE LUMBAR REGION AND INTO THE LEFT PARASPINALS, BUTTOCK AND HIP REGIONS. LUMBAR OSWESTRY HAS IMPROVED FROM 20 TO 9. PATIENT DEMO'D SAFETY AND GOOD TECHNIQUE WITH ALL GYM MACHINES TODAY AND IS INDEP WITH HEP. - Goals Goal 1:: DECREASE C/O LEFT LOW BACK, HIP AND THIGH PAIN Goal 2:: IMPROVE PERSONAL CARE, LIFTING, WALKING, STANDING, SLEEP, SOCIAL LIFE, TRAVEL AND HOMEMAKING FUNCTION. Goal 3:: INSTRUCT IN PROPHYLAXIS - Plan Plan: D/C TO INDEP EX. PATIENT AGREEABLE. - D/C Information If there are questions or concerns regarding this patient's physical therapy, please feel free to call me at [phone]. Thank you for the referral of this patient. Sincerely, Jesika Sales PT, Cert MDT
== END 2019-01-12 19:00 | disposition home or self-care (01) ==
LOC: PT 10:30
PROVIDERS: Family Provider Internal Medicine; PCP Internal Medicine; Referring Provider Internal Medicine; Visit Provider Internal Medicine
DX: M54.5 Low back pain (principal); G89.29 Other chronic pain
CPT/HCPCS: 97035; 97110; 97162; 97530

== ENCOUNTER → 2019-02-14 | Outpatient (CLI) | payer MEDICARE, OTHER, SELFPAY ==
[2018-10-31 09:16] VITALS: BMI 40.6
== END | disposition home or self-care (01) ==
PROVIDERS: Family Provider Internal Medicine; PCP Internal Medicine
DX: D80.1 Nonfamilial hypogammaglobulinemia (principal)
CPT/HCPCS: 36415

== ENCOUNTER 2019-02-23 10:05 | Emergency (ER) | payer MEDICARE, OTHER, SELFPAY ==
[2018-10-31 09:16] VITALS: BMI 40.6
[2019-02-23 10:06] VITALS: BP 166/91; PULSE 84; RESP 16; TEMP 36.6; O2SAT 96; BMI 39.9
--- NOTE | 2019-02-23 10:30 | CT_ITS ---
STUDY: CT BRAIN WITHOUT CONTRAST REASON FOR EXAM: Female, 73 years old. 3 day history of migraine headaches. Hypertension. RADIATION DOSAGE (If Supplied By Facility): CTDIvol = ( 44.99 ) mGy, DLP = ( 745.49 ) mGycm TECHNIQUE: Transaxial CT imaging of the brain was performed without administration of intravenous contrast material. Individualized dose optimization techniques were used for this CT. COMPARISON: No relevant priors. FINDINGS: Normal soft tissue structures. There is hyperostosis frontalis internus. There is mild cerebral atrophy with widening of the extra-axial spaces and ventricular dilatation. Focal hypodensity in the mayo radiata of the right parietal lobe suggestive of an old ischemic insult. Normal basal ganglia and thalami. Normal brainstem. Normal cerebellum. There is no intracranial hemorrhage. There are no findings of an acute ischemic infarction. Normal visualized paranasal sinuses. CT/Brain/Head without Contrast IMPRESSION: Chronic involutional changes of the brain. Electronically Signed: Casimiro Carty, at 11:09 EDT , Service support ,
--- NOTE | 2019-02-23 10:37 | ED.DCSUM_ITS ---
History of Present Illness Chief Complaint: Headache Informant: Patient Onset: Days - 9 Narrative: Waxing and waning migraine symptoms for past 9 days. No falls or head injuries. No fevers. Takes Fioricet twice a day as needed, recently 3 times a day. Followed by immunology, reports discussion over the phone was started on clarithromycin daily for the past 4 days for concerns for sinus congestion. Denies sinus drainage. Reports typically symptoms would last no more than 5 days. She has pain more in the crown region which is different. Mild photophobia, mild nausea. No photophobia, no visual changes. Reports typically symptoms has been managed as an outpatient this is her first visit to the ED for migraine symptoms. No recent CT head scans. Prior similar symptoms: Yes Past Medical History - Allergies and Home Meds Allergies/Adverse Reactions: Allergies Beta-Blockers (Beta-Adrenergic Bloc Allergy (Verified 02/23/19 10:07) Shortness of breath doxycycline Allergy (Verified 02/23/19 10:07) Hives Penicillins Allergy (Verified 02/23/19 10:07) Rash red dye Allergy (Verified 02/23/19 10:07) Unknown Sulfa (Sulfonamide Antibiotics) Allergy (Verified 02/23/19 10:07) Rash theophylline Allergy (Verified 02/23/19 10:07) Rash codeine Adverse Reaction (Verified 02/23/19 10:07) Nausea Primary Care Physician: Christi Oswald MD [Primary Care Provider] - Surgical History: cataract, cholecystectomy, coronary bypass surgery - x4., hysterectomy Smoking Status: Never smoker - Family History Paternal Family History: Family History (Last Reviewed 10/31/18 @ 09:39 by MIAH Melgar) Father CAD (coronary artery disease) Family History: Reports: Heart Disease Maternal Family History: Family History (Last Reviewed 10/31/18 @ 09:39 by MIAH Melgar) Father CAD (coronary artery disease) Family History: Reports: Cancer Review of Systems General: Denies: Chills, Fever, Sweats Eyes: Denies: Visual changes - bilaterally, Blurred Vision - bilaterally, Diplopia ENT: Denies: Rhinorrhea, Sore throat Cardiovascular: Denies: Chest pain, Palpitations Respiratory: Denies: Dyspnea, Cough, Dyspnea on exertion Gastrointestinal: Denies: Abdominal pain, Nausea, Vomiting, Diarrhea, Melena, Hematochezia Genitourinary: Denies: Dysuria, Hematuria, Frequency Musculoskeletal: Denies: Back pain, Extremity Pain Skin: Denies: Rash, Wounds Neurological: Reports: Headache. Denies: Weakness, Numbness Physical Exam Vital Signs/Narrative: Vital Signs Temp Pulse Resp BP Pulse Ox 02/23/19 10:06 97.8 F 84 16 166/91 H 96 Inital Vital Signs reviewed: Yes General: Well nourished, Well developed, No Acute Distress Head: Normocephalic, Atraumatic Eyes: Perrl, EOMI ENT: Moist mucous membranes, No rhinorrhea Neck: Supple, Nontender, - - No meningismus Cardiovascular: Regular rate, Regular rhythm, No murmurs Respiratory: No distress, CTA bilaterally, Chest nontender Abdomen: Soft, Nontender, Nondistended, Normal bowel sounds Back: Nontender, Normal Inspection Extremities: Nontender, No edema Skin: Normal color, No rash Neurological: Alert, Oriented x3, Cranial nerves II-XII grossly intact, Normal Strength, Normal Sensation Psychological: Normal affect, Normal Mood Diagnostic/Tx/Re-eval CT brain: Chronic changes. Right parietal hypodensity at the coronal radiata concerns for old infarct. - Medical Decision Making Patient with no focal neurologic deficits. Reported new symptoms in the crown region atypical for her migraines CT scan was obtained. Noted chronic changes and old infarct region. She was treated with migraine cocktail Reglan Benadryl fluids with improving symptoms. Discussed findings for old infarct, she has no known stroke history. However she is on Eliquis for history of paroxysmal A. fi b, she is on Zetia, she did not tolerate statins in the past due to muscle aches. She is on treatment recommendations for stroke symptoms. She would likely need further images due to the findings on CT. She will follow-up with her PCP for discussion. All questions were answered. 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 Currently on Eliquis and your Zetia. May need further testing as an outpatient.
[2019-02-23] MEDS: DiphenhydrAMINE 50 MG/ML Syringe 25 MG IV (10:39)
[2019-02-23] MEDS: Metoclopramide 10 MG/2 ML Vial IV (10:39)
[2019-02-23 11:05] VITALS: RESP 18
[2019-02-23 11:40] VITALS: RESP 18
== END 2019-02-23 11:41 | disposition home or self-care (01) ==
PROVIDERS: Emergency Provider Emergency Medicine; Family Provider Internal Medicine; PCP Internal Medicine
DX: G43.909 Migraine, unspecified, not intractable, without status migrainosus (principal); I48.0 Paroxysmal atrial fibrillation; Z79.01 Long term (current) use of anticoagulants
CPT/HCPCS: 70450; 96374; 96375; 99284; J7030; A4216

== ENCOUNTER → 2019-04-12 | Outpatient (CLI) | payer MEDICARE, OTHER, SELFPAY ==
[2018-10-31 09:16] VITALS: BMI 40.6
[2019-03-22 07:50] VITALS: BMI 39.6
--- NOTE | 2019-04-13 09:14 | PFT ---
INTRODUCTION: The patient is a 73-year-old female that presents for pulmonary function studies secondary to a diagnosis of COPD. Respiratory therapy reports good patient effort. Bronchodilators were used during testing. INTERPRETATION: Forced expiration spirometry demonstrates no evidence of a large airways obstructive ventilatory defect. There was no significant response to aerosolized bronchodilators. Spirograms are of good quality and plateau normally. Body plethysmography was performed and reveals a decreased TLC to 3.26 L, 78% of predicted, indicative of a mild restrictive ventilatory defect. Diffusing capacity by single breath CO is moderately reduced at 56% of predicted. When compared to previous pulmonary function studies dated March 2018, there has been a 17% reduction in total lung capacity with a 17% improvement in diffusing capacity. IMPRESSION: Mild restrictive ventilatory impairment with disproportionate moderate reduction in diffusing capacity.
== END | disposition home or self-care (01) ==
LOC: PSN 09:56
PROVIDERS: Family Provider Internal Medicine; PCP Internal Medicine; Referring Provider Nurse Practitioner Acute Care; Visit Provider Nurse Practitioner Acute Care
DX: R06.02 Shortness of breath (principal)
CPT/HCPCS: 94060; 94726; 94729

== ENCOUNTER → 2019-04-13 | Outpatient (CLI) | payer MEDICARE, OTHER, SELFPAY ==
[2018-10-31 09:16] VITALS: BMI 40.6
[2019-03-22 07:50] VITALS: BMI 39.6
[2019-04-13 11:10] VITALS: PULSE 70; PULSE 72; PULSE 81; PULSE 88; PULSE 91; PULSE 96; PULSE 97; O2SAT 93; O2SAT 95; O2SAT 96; O2SAT 97
--- NOTE | 2019-04-13 11:45 | PCM.PSN.6M ---
PSN 6 Minute Walk Test - 6 Minute Walk Test 6 Minute Walk Test: 6 Minute Walk Test PSN:6-Minute Walk Test Start: 04/13/19 11:09 Freq: Status: Active Protocol: RESP.6MINW Document 04/13/19 11:10 KORI (Rec: 04/13/19 11:12 KORI [id number]) 6 Minute Walk Test Date Performed 04/13/19 Time Performed 11:00 Height 5 ft 1 in Weight: 208 lb Weight in Pounds 208.[address]: Julio Sevilla Assistive device used: None Pre-test Oxygen Delivery Method Room Air Pulse Ox (%) 95 Pulse Rate (60-100 beats/min) 70 Dyspnea Austyn Scale (0-10) 0 Exertion Austyn Scale (6-20) 6 1st minute Oxygen Delivery Method Room Air Pulse Ox (%) 96 Pulse Rate (60-100 beats/min) 81 2nd minute Oxygen Delivery Method Room Air Pulse Ox (%) 95 Pulse Rate (60-100 beats/min) 88 3rd minute Oxygen Delivery Method Room Air Pulse Ox (%) 95 Pulse Rate (60-100 beats/min) 91 4th minute Oxygen Delivery Method Room Air Pulse Ox (%) 93 Pulse Rate (60-100 beats/min) 97 5th minute Oxygen Delivery Method Room Air Pulse Ox (%) 93 Pulse Rate (60-100 beats/min) 97 6th minute Oxygen Delivery Method Room Air Pulse Ox (%) 93 Pulse Rate (60-100 beats/min) 96 Dyspnea Austyn Scale (0-10) 1 Exertion Austyn Scale (6-20) 12 Post-test Oxygen Delivery Method Room Air Pulse Ox (%) 97 Pulse Rate (60-100 beats/min) 72 Full Laps Walked 16 Partial Lap, Number of Tiles Walked 5 Total Distance Walked (ft) 949 - Interpretation Interpretation: The patient ambulated 949 feet over the course of 6 minutes beginning on room air without assistive devices or breaks. Pretesting oxygen saturation was noted to be 95% on room air. With ambulation, the nathan oxygen saturation was 93%. There was no significant exertional oxygen desaturation. - Recommendations Recommendations: There is no indication for the use of supplemental oxygen at this time.
== END | disposition home or self-care (01) ==
LOC: PSN 10:45
PROVIDERS: Family Provider Internal Medicine; PCP Internal Medicine; Referring Provider Internal Medicine Critical Care Medicine; Visit Provider Internal Medicine Critical Care Medicine
DX: J44.9 Chronic obstructive pulmonary disease, unspecified (principal)
CPT/HCPCS: 94618

== ENCOUNTER 2019-07-16 12:00 | Outpatient (RCR) | payer MEDICARE, OTHER, SELFPAY ==
[2019-06-14 10:51] VITALS: BMI 39.2
--- NOTE | 2019-07-06 07:20 | HP.PTEVAL_ITS ---
Patient's Visit Information ANTIONETTE VELIZ is a 74 year old F referred to Physical Therapy by Christi Oswald MD with a diagnosis of Low back pain and B hip pain. Date of Evaluation: 06/22/19 Physical Therapist: Jewel Dela Cruz DPT - Visit Plan Frequency: 2x /Week Duration: 4 Weeks Plan: Start with US with attempts in prone positioning. Add in gentle SKTC, HS stretching, never glides. Once pain has started to reduce add in gentle TA exercises. - Subjective Findings: Pt. is here today for her initial evaluation with diagnosis of low back pain and B hip pain. Pt. reports falling down 2 steps at a [employer]urant, ~4 months ago. She did sprain her ankle and his now dealing with L hip pain and low back pain. Comorbidities: auto immune disorder (effects her breathing), hypothyroidism. Pt. reports having increased pain with prolonged walking, stooping, bending. Better: nothing. Pt. denies N/T in either leg, but has some under lying issue since a CABG x2 years ago. Pt. had previously been seen for back pain that improved with US and core stability exercises. Pt. is hopeful to reduce her symptoms in order to get back to sleeping and walking without limitations. - Pain lumabr spine Pain Intensity (Out of 10): 2 Pain Intensity Range: 5 L hip Pain Intensity (Out of 10): 3 Pain Intensity Range: 1, 5 - Objective POSTURE: Pt. has generally flexed posture, pt. has FH posture. PALPATION: Pt. has increased tenderness at L lumabr spine, SI joint and L piriformis region. Pt. has some pain at L greater trochanter as well. NEURO: Pt. reports having normal, but dull feeling in BLEs. ROM: LUMBAR SPINE: flexion min/mod loss increase NE, ext mod/max loss increase NW, SB mod loss increase NW bilat, rotation mod loss increase NW. MMT: RLE: ankle 5/5 throughout; knee- ext 5-/5, flexion 5-/5; hip- flexion 4/5, abd 4/5, ext 4/5. LLE- ankle 5/5 throughout; knee- ext 4+/5, abd 4+/5; hip: flexion 4/5 increase NW, abd 4/5 increase NE, ext 4/5 increase NE. Core strength- poor. GAIT: Pt. ambulates with sligth L lateral ship and flexed posture. Pt. reports increased pain with walking, but greatest pain with attempting to roll in bed. Pt. - Goals Goal 1:: Pt. to be I with HEP. Goal Time Frame: 4-6 Weeks Goal 2:: Pt. to sit without increase in symptoms. Goal Time Frame: 4-6 Weeks Goal 4:: Pt. to walk unlimited distances with 0-1/10 pain in lumbar spine. Goal Time Frame: 4-6 Weeks Goal 5:: Pt. to have increased ROM of lumbar spine by 25% in all directions. Goal Time Frame: 4-6 Weeks - Rehabilitation Potential Physical Therapy Diagnosis: Pt. has signs and symptoms consistent with low back pain and L sided hip pain. Pt. appears to have signs of acute on chronic flare up of her symptoms. Pt. is very limited with all of her motions and has overall limited core stabilty. Pt. would benefit from PT to increase ROM, and decreased symptoms along with promoting increased core stability. Rehabilitation Potential: Fair - Anticipated Interventions Patient/Client Instruction: Educate patient on: Condition, Plan of Care, Risk Factors, Benefits of Fitness Program For the Purpose of:: To foster healthy habits, To improve decision making, To facilitate caregiver knowledge, To improve self management, To prevent re- injury, To improve ability to perform tasks related to life management, To improve tolerance to ADL's Therapeutic Exercise to Include: Strength training, Power training, Endurance training, Postural training, Flexibilty training, Gait and locomotor training, Passive ROM, Active ROM, Dynamic Lumbar Stabilization, Maryann Exercises For the Purpose of:: To decrease pain, To decrease swelling/inflammation, To increase ROM, To improve nutrient delivery to tissue, To improve ability of physical actions for home/community/work/leisure, To improve gait and locomotor functions, To improve health of tissue, To decrease soft tissue restriction, To increase flexibility/ROM Manual Therapy Techniques to Include: Mobilization, Soft tissue mobilization For the Purpose of:: To decrease pain, To decrease swelling/inflammation, To increase ROM, To improve nutrient delivery to tissue Cryotherapy (ice pack, ice massage): Yes Thermo therapy (hot pack): Yes Ultrasound (thermal/non thermal): Yes For the Purpose of:: To decrease pain, To decrease swelling/inflammation, To increase ROM, To improve nutrient delivery to tissue Thank you for the opportunity to evaluate your patient. For Medicare and Medicare HMO plans, please review the plan of care and approve it. It will need to be FAXED BACK to us at [phone] for Medicare purposes. For Medicare only, by signing this I certify the plan of care. Please let me know if there are questions or concerns regarding this plan of care. Physician Signature: Date:
== END 2019-07-16 19:00 | disposition home or self-care (01) ==
LOC: PT 12:00
PROVIDERS: Family Provider Internal Medicine; PCP Internal Medicine; Referring Provider Internal Medicine; Visit Provider Internal Medicine
DX: M25.551 Pain in right hip (principal); M25.552 Pain in left hip; M54.5 Low back pain
CPT/HCPCS: 97035; 97110; 97140; 97161

== ENCOUNTER 2019-07-17 14:08 | Emergency (ER) | payer MEDICARE, OTHER, SELFPAY ==
[2019-07-02 15:13] VITALS: BMI 39.2
[2019-07-17 14:10] VITALS: BP 165/78; PULSE 86; RESP 18; TEMP 36.6; O2SAT 97; BMI 38.9
--- NOTE | 2019-07-17 14:20 | CT_ITS ---
STUDY: CT ABDOMEN AND PELVIS WITH CONTRAST REASON FOR EXAM: Female, 74 years old. Left lower quadrant pain with peritonitis RADIATION DOSAGE (If Supplied By Facility): CTDIvol = ( 20.39 ) mGy, DLP = ( 1110.42 ) mGycm TECHNIQUE: Transaxial images were obtained from the dome of the diaphragm to the symphysis pubis without oral contrast. IV/Oral Isovue 300 100CC was administered. Sagittal and coronal images were reconstructed. Individualized dose optimization techniques were used for this CT. COMPARISON: June 2016 FINDINGS: There is bibasilar interstitial thickening. The visualized portions of the heart are within normal limits. Small hiatal hernia noted Normal liver. There is mild intrahepatic ductal dilatation association with prior cholecystectomy. Normal spleen. Normal pancreas. Normal bilateral adrenal glands. Normal right kidney. Normal left kidney. Normal visualized stomach. Normal small intestine. Prominent diverticular changes of the distal descending and sigmoid colon without evidence for acute diverticulitis. Appendix not visualized which may be consistent with prior appendectomy. Minor atherosclerotic changes of the aorta without evidence for aneurysm. Normal inferior vena cava. Normal retroperitoneum. Incompletely distended thick-walled bladder likely of no significance.. Uterus not visualized consistent with hysterectomy Small fat-containing periumbilical hernia.. Lumbar spine demonstrates mild spondylosis CT/Abdomen/Pelvis WITH Contrast IMPRESSION: Diverticular disease of the descending and sigmoid colon without evidence for acute diverticulitis.. Status post cholecystectomy and hysterectomy Electronically Signed: Manoj Urrutia MD at 16:35 EST , Service support ,
[2019-07-17] MEDS: Ondansetron 4 MG/2 ML Vial IV (14:40)
[2019-07-17] MEDS: Morphine 4 MG/ML Syringe IV (14:40)
[2019-07-17 14:45] LABS: Hematocrit 45.3 % (37-47); Hemoglobin 15.6 g/dL (12.0-15.0); Mean Corp Hgb Conc 34.4 g/dL (32-36); Mean Corpuscular Hgb 28.7 pg (27.0-32.0); Mean Corpuscular Volume 83.4 fL (81-99); Mean Platelet Vol. 10.2 fl (6.2-12.0); Platelet Count 241 K/mm3 (150-450); RBC Distribution Width CV 12.7 % (11.6-14.6); RBC Distribution Width SD 38.2 fl (35.1-43.9); Red Blood Count 5.43 M/mm3 (4.2-5.4)
--- NOTE | 2019-07-17 14:55 | ED.DCSUM_ITS ---
History of Present Illness Chief Complaint: Abd Pain Detail of Chief Complaint: Lower quadrant abdominal pain with nausea and 4 bowel movements Informant: Patient, Significant Other Onset: Today Context: Sudden Onset Timing: Continuous Quality: Lower quadrant abdominal pain Location: LLQ Current Severity: Mild Maximum Severity: Moderate Worsened by: Walking and pushing on it Relieved by: Nothing Associated Symptoms: Nausea and diarrhea Narrative: 74-year-old woman history of diverticulitis who presents with left lower quadrant pain started this morning with 4 soft mushy stools and nausea. She denies fever or chills. She denies cardiac respiratory symptoms. She denies urologic symptoms. Denies vaginal symptoms or bleeding. She states she had bright red blood on the toilet paper. She has history of hemorrhoids. Prior similar symptoms: Yes Recent Illness/Hospitalization: No - Past Medical History (1) Atherosclerotic heart disease of [place] coronary artery without angina pectoris Status: Chronic (2) COPD (chronic obstructive pulmonary disease) Status: Chronic (3) DM type 2 (diabetes mellitus, type 2) Status: Chronic (4) Essential hypertension Status: Chronic (5) HLD (hyperlipidemia) Status: Chronic (6) Hypogammaglobulinemia Status: Chronic (7) Morbid obesity Status: Chronic (8) Nonrheumatic tricuspid valve regurgitation Status: Chronic (9) Paroxysmal atrial fibrillation Status: Chronic (10) Restrictive lung disease Status: Chronic Past Medical History - Allergies and Home Meds Allergies/Adverse Reactions: Allergies Beta-Blockers (Beta-Adrenergic Bloc Allergy (Verified 07/17/19 14:10) Shortness of breath doxycycline Allergy (Verified 07/17/19 14:10) Hives Penicillins Allergy (Verified 07/17/19 14:10) Rash red dye Allergy (Verified 07/17/19 14:10) Unknown Sulfa (Sulfonamide Antibiotics) Allergy (Verified 07/17/19 14:10) Rash theophylline Allergy (Verified 07/17/19 14:10) Rash codeine Adverse Reaction (Verified 07/17/19 14:10) Nausea Primary Care Physician: Christi Oswald MD [Primary Care Provider] - Prior records reviewed: Yes Surgical History: cataract, cholecystectomy, coronary bypass surgery, hysterectomy Lives: Spouse/ Significant Other Smoking Status: Never smoker Alcohol: None Drugs: None - Family History Paternal Family History: Family History (Last Reviewed 07/02/19 @ 15:13 by Christin Butler) Father CAD (coronary artery disease) Family History: Reports: Heart Disease Maternal Family History: Family History (Last Reviewed 07/02/19 @ 15:13 by Christin Butler) Father CAD (coronary artery disease) Family History: Reports: Cancer Review of Systems General: Reports: Chills, Malaise. Denies: Fever, Subjective, Sweats, Weight loss, - Eyes: Denies: Visual changes - bilaterally, Blurred Vision - bilaterally, Diplopia ENT: Denies: Rhinorrhea, Sore throat Cardiovascular: Denies: Chest pain, Palpitations Respiratory: Denies: Dyspnea, Cough, Dyspnea on exertion Gastrointestinal: Reports: Abdominal pain, Nausea, Diarrhea. Denies: Vomiting, Melena Genitourinary: Denies: Dysuria, Hematuria, Frequency Musculoskeletal: Reports: Back pain - She reports she has chronic back pain.. Denies: Myalgias, Arthralgias, Neck pain, Swelling, Extremity Pain Skin: Denies: Rash, Wounds Neurological: Denies: Headache, Weakness, Numbness Hematologic: Denies: Easy bruising, Easy bleeding Allergy: Denies: Uticaria, Swelling of the mouth Physical Exam Vital Signs/Narrative: Vital Signs Temp Pulse Resp BP Pulse Ox 07/17/19 14:10 98 F 86 18 165/78 H 97 Inital Vital Signs reviewed: Yes General: Well nourished, Well developed, Obese, No Acute Distress Head: Normocephalic, Atraumatic Eyes: Perrl, EOMI ENT: Moist mucous membranes, No rhinorrhea Neck: Supple, Nontender Cardiovascular: Regular rate, Regular rhythm, No murmurs Respiratory: No distress, CTA bilaterally, Chest nontender Abdomen: Soft, No masses, Tender - Tenderness left lower quadrant., Guarding, Rebound tenderness, Hypoactive bowel sounds. Negative for: Hepatomegaly, Splenomegaly, Mass Back: Nontender, Normal Inspection. Negative for: CVA tenderness Extremities: Nontender, No edema Skin: Normal color, No rash, No Trauma. Negative for: Cyanosis, Diaphoresis, Jaundice Neurological: Alert, Oriented x3, Cranial nerves II-XII grossly intact, Normal Strength, Normal Sensation Psychological: Normal affect, Normal Mood Diagnostic/Tx/Re-eval 07/17/19 14:20 Abdomen/Pelvis WITH Contrast [CT] Stat Laboratory Results 07/17/19 07/17/19 07/17/19 14:30 14:30 14:30 WBC 11.0 RBC 5.43 H Hgb 15.6 H Hct 45.3 MCV 83.4 MCH 28.7 MCHC 34.4 RDW Std Deviation 38.2 RDW Coeff of Keshia 12.7 Plt Count 241 MPV 10.2 Sodium 137 Potassium 3.7 Chloride 105 Carbon Dioxide 24.0 Anion Gap 8 BUN 12 Creatinine 0.63 Estim Creat Clear Calc 36.68 Est GFR (MDRD) Af Amer 118 Est GFR (MDRD) Non-Af 97 BUN/Creatinine Ratio 19.0 Glucose 185 H Lactic Acid 1.4 Calcium 8.6 Laboratory results are unremarkable. CT of the abdomen with p.o. and IV contrast is pending. Suspect patient has diverticulitis. With normal vitals, normal white count presume patient will be a candidate for outpatient antibiotics. Disposition to be made once CT results are available for review. CT/Abdomen/Pelvis WITH Contrast IMPRESSION: Diverticular disease of the descending and sigmoid colon without evidence for acute diverticulitis.. Status post cholecystectomy and hysterectomy Electronically Signed: Manoj Urrutia MD at 16:35 EST , Service support , - Medical Decision Making With left lower quadrant pain with peritonitis concern patient has diverticulitis. Appropriate blood work was ordered. IV fluids, antiemetic and pain medicine. CT of the abdomen with contrast was ordered. ED Disposition - Plan for ED Patient: Disposition: Home or Assisted Living Diagnosis: Acute left lower quadrant pain, Localized peritonitis Instructions: Diverticulosis Prescriptions: Clindamycin HCl [Cleocin] 300 mg PO Q6H #28 cap Transmission Status: Pending to [facility]/pharmacy #[id number] Metronidazole 500 mg PO TID #21 tab Transmission Status: Pending to [facility]/pharmacy #[id number] Referrals: Christi Oswald MD [Primary Care Provider] - 3-5 Days Additional Instructions: Your prescriptions were electronically transmitted to [facility] pharmacy. Take antibiotics until gone.
[2019-07-17 14:57] LABS: Anion Gap 8 (5-15); BUN 12 mg/dL (7-18); Calcium,Total 8.6 mg/dL (8.5-10.1); Chloride 105 mmol/L (98-107); Creatinine, Serum 0.63 mg/dL (0.55-1.02); EST Glomerular Filtration Rate 97 mL/min (>60); Est Glom Filt Rate - Afr Amer 118 mL/min (>60); Estimated Creatinine Clearance 36.68 ml/min; Glucose 185 mg/dL (74-106); Potassium 3.7 mmol/L (3.5-5.1); Sodium Level 137 mmol/L (136-145)
[2019-07-17 15:06] LABS: Lactic Acid 1.4 mmol/L (0.4-2.0)
[2019-07-17] MEDS: metroNIDAZOLE 500 MG Tablet PO (16:48)
[2019-07-17] MEDS: Clindamycin HCl 150 MG Capsule 300 MG PO (16:58)
[2019-07-17] MEDS: Ondansetron ODT 4 MG Tablet PO (16:58)
[2019-07-17 16:59] VITALS: BP 125/66; PULSE 86; RESP 18; O2SAT 94
== END 2019-07-17 17:27 | disposition home or self-care (01) ==
PROVIDERS: Emergency Provider Emergency Medicine; Family Provider Internal Medicine; PCP Internal Medicine
DX: R10.32 Left lower quadrant pain (principal); K65.9 Peritonitis, unspecified; K57.30 Diverticulosis of large intestine without perforation or abscess without bleeding; I25.10 Atherosclerotic heart disease of native coronary artery without angina pectoris; J44.9 Chronic obstructive pulmonary disease, unspecified; E11.9 Type 2 diabetes mellitus without complications; I10 Essential (primary) hypertension; E78.5 Hyperlipidemia, unspecified; D80.1 Nonfamilial hypogammaglobulinemia; E66.01 Morbid (severe) obesity due to excess calories; I36.1 Nonrheumatic tricuspid (valve) insufficiency; I48.0 Paroxysmal atrial fibrillation; Z90.49 Acquired absence of other specified parts of digestive tract; Z95.1 Presence of aortocoronary bypass graft; Z79.01 Long term (current) use of anticoagulants; Z79.899 Other long term (current) drug therapy
CPT/HCPCS: 74177; 80048; 83605; 85027; 96361; 96374; 96375; 99284; J7030; Q9967; A4216; J2405

== ENCOUNTER 2019-07-23 14:02 | Inpatient (IN) | payer MEDICARE, OTHER, SELFPAY ==
[2019-07-23] VITALS (27 sets, daily range): BP systolic 84–147; BP diastolic 51–114; PULSE 78–163; RESP 14–28; TEMP 36.6–36.8; O2SAT 89–97; BMI 39.8; BMI 38.9; BMI 37.0
--- NOTE | 2019-07-23 14:18 | EKG12_ITS ---
Test Reason : POST-CARDIZEM Blood Pressure : / mmHG Vent. Rate : 106 BPM Atrial Rate : 144 BPM P-R Int : 000 ms QRS Dur : 090 ms QT Int : 340 ms P-R-T Axes : 000 -05 070 degrees QTc Int : 451 ms Atrial fibrillation with rapid ventricular response Nonspecific ST and T wave abnormality Abnormal ECG Confirmed by MARGARITA HERCULES, SHON ([id number]), editor magazine DANYA REILLY ([id number]) on 07/25/2019 9:35:09 AM Referred By: Sophie Victoria Confirmed By:SHON AVILA MD
[2019-07-23] MEDS: dilTIAZem 25 MG/5 ML Vial 20 MG IV BOLUS ×2 (14:39→18:17)
[2019-07-23 14:54] LABS: Absolute Lymphocyte Count 1.96 X10^3/uL (0.83-4.51); Basophil# 0.08 X10^3/uL; Eosinophil# 0.12 X10^3/uL; Eosinophils% 1.5 % (0-5); Hematocrit 42.1 % (37-47); Hemoglobin 14.4 g/dL (12.0-15.0); Lymphocyte # 1.96 X10^3/ul (4.0); Lymphocyte % 24.1 % (19-41); Mean Corp Hgb Conc 34.2 g/dL (32-36); Mean Corpuscular Hgb 28.3 pg (27.0-32.0); Mean Corpuscular Volume 82.9 fL (81-99); Mean Platelet Vol. 10.8 fl (6.2-12.0); Monocyte# 0.92 X10^3/uL; Monocyte% 11.3 % (0-10); NRBC Flagged by Analyzer 0 % (0-5); Neutrophil # 5.01 X10^3/uL (2.7-7.7); Neutrophil % 61.7 % (47-70); Platelet Count 347 K/mm3 (150-450); RBC Distribution Width CV 13.6 % (11.6-14.6); RBC Distribution Width SD 41.2 fl (35.1-43.9); Red Blood Count 5.08 M/mm3 (4.2-5.4); White Blood Count 8.1 K/mm3 (4.4-11.0)
--- NOTE | 2019-07-23 14:56 | ED.VISSUMM ---
- ER Visit Summary Date of Service: 07/23/19 Chief Complaint: Abdominal pain, palpitations History of Present Illness: The patient is a 74 F who states she was seen here last week. She had a fairly negative work-up. However, they were concerned about diverticulitis to the put her on clindamycin and a probiotic. She followed up with her doctor today and she was feeling fatigued, not eating well. Her heart is racing. She did have a dark bowel movement today but denies as black or melanotic. She has a history of paroxysmal A. fib. She does take Coreg 0.25 mg twice a day. Her temperature was 100 ?F at home but it came back down on its own. Physical Examination: Vital signs reviewed. Heart rate is 160 and irregular. HEENT exam unremarkable. Heart is irregularly irregular and tachycardic. Lungs are clear bilaterally. Abdomen is soft with tenderness in the left lower quadrant. There is no distention. There is no guarding. Her back is nontender. Skin has no rashes. Neurologic exam is normal. Test Results: EKG is A. fib with a rate of 175. PVCs noted. Nonspecific ST-T wave changes seen. Labs are unremarkable except for ALT is 72 and AST of 60. Glucose 201. Troponin normal. Lactate normal. Emergency Department Course and Treatment: Patient was given IV Cardizem. Her repeat heart rate is between 90 and 100 but still irregular. She is on Eliquis at home. She is only on 6.25 mg of Coreg twice daily. I feel that due to her rate being very high in her age, she should be admitted to the hospital. I spoke with the hospitalist. Treatment Plan: [] Disposition: Admit Impression: Atrial fibrillation with RVR This note was generated with [employer] dictation software. It may contain incorrect words, spelling, and punctuation that were not noted in review of the chart prior to signing ED Disposition - Plan for ED Patient: Referrals: Christi Oswald MD [Primary Care Provider] -
[2019-07-23 14:58] LABS: AST(SGOT) 60 U/L (15-37); Alanine Aminotransfer ALT/SGPT 72 U/L (13-56); Albumin, Serum 3.6 g/dL (3.2-5.0); Alkaline Phosphatase 85 U/L (45-117); Anion Gap 8 (5-15); BUN 8 mg/dL (7-18); BUN/Creat Ratio 10.7 RATIO (10-20); Calcium,Total 8.9 mg/dL (8.5-10.1); Chloride 107 mmol/L (98-107); Creatinine, Serum 0.75 mg/dL (0.55-1.02); EST Glomerular Filtration Rate 80 mL/min (>60); Est Glom Filt Rate - Afr Amer 97 mL/min (>60); Estimated Creatinine Clearance 36.68 ml/min; Globulin 3.6 g/dL (2.2-4.2); Glucose 201 mg/dL (74-106); Potassium 3.8 mmol/L (3.5-5.1); Protein, Total 7.2 g/dL (6.4-8.2); Sodium Level 139 mmol/L (136-145)
[2019-07-23 15:03] LABS: International Normalized Ratio 1.4; Prothrombin Time (Protime)PT. 16.7 SECONDS (11.7-14.9)
[2019-07-23 15:04] LABS: Partial Thromboplast Time 27.3 Seconds (24.1-36.2)
[2019-07-23 15:37] LABS: Lactic Acid 1.2 mmol/L (0.4-2.0)
[2019-07-23 15:46] LABS: Bacteria 0 SEEN /hpf (None Seen); Mucous, Urine 0 SEEN /hpf (<or=2+); Red Blood Cells-Urine 0 SEEN /hpf (0-5)
[2019-07-23 15:49] LABS: Color, Urine Yellow (Yellow); Glucose, Dipstick Normal (Normal); Ketone-Dipstick Negative (Negative); Leukocyte Esterase-Dipstick 100 /ul (Negative); Nitrite-Dipstick Negative (Negative); Occult Blood-Urine Negative /ul (Negative); Protein-Dipstick Negative (Negative); Urine Bilirubin Dipstick Negative (Negative); Urine Clarity Clear (Clear); Urine Urobilinogen Normal (Normal)
--- NOTE | 2019-07-23 15:52 | HP.PCM_ITS ---
Problem List (1) COPD (chronic obstructive pulmonary disease) Status: Chronic Qualifiers: Emphysema type: unspecified (2) Essential hypertension Status: Chronic (3) Atherosclerotic heart disease of [place] coronary artery without angina pectoris Status: Chronic Qualifiers: [place] vs. 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 (7) HLD (hyperlipidemia) Status: Chronic Qualifiers: Hyperlipidemia type: unspecified Qualified Code(s): E78.5 - Hyperlipidemia, unspecified (8) DM type 2 (diabetes mellitus, type 2) Status: Chronic Qualifiers: Diabetes mellitus manager terminal insulin use: without shelter use Diabetes mellitus complication status: without complication Qualified Code(s): E11.9 - Type 2 diabetes mellitus without complications (9) Hypogammaglobulinemia Status: Chronic (10) Morbid obesity Status: Chronic (11) Migraines Status: Chronic Qualifiers: Migraine type: unspecified Status migrainosus presence: without status migrainosus Intractability: not intractable Qualified Code(s): G43.909 - Migraine, unspecified, not intractable, without status migrainosus (12) BARTOLO (obstructive sleep apnea) Status: Chronic History of Present Illness Date of Admission: 07/23/19 Chief Complaint: Fatigue, palpitations - 2 days The patient is a 74 year old F with past medical history of paroxysmal atrial fibrillation, type 2 DM, hypogammaglobulinemia, hypertension, obesity, BARTOLO who comes in with complaints of fatigue and palpitations ongoing for about 2 days. Patient was seen in the emergency department on 07/17/19 and treated for acute diverticulitis. She had completed her antibiotics. Her abdomional discomfort is improved she followed up with her primary care doctor and she was noted to have elevated heart rate and sent to the emergency department. Patient complained of feeling generally tired. Denied any chest pain or dizziness orthopnea PND or leg swelling. She has history of hypogammaglobulinemia for which she sees a neurologist every 6 months to have a pneumonia vaccine. Denied any fever or chills or runny nose or cough. Vitals in the ED showed patient 98.1F, heart rate 163, blood pressure 147/110, respiratory rate is 14, SPO2 is 96% on room air. Admitting blood work was unremarkable. INR is 1.4. Patient is on Eliquis. Initial EKG showed A. fib RVR with heart rate 175. She received 1 dose of Cardizem IV in the ED with slowing down of heart rate to about 106. Past Medical History Past Medical History (Chronic Problems): Chronic Problems (Last Reviewed 07/02/19 @ 15:13 by Christin Butler) COPD (chronic obstructive pulmonary disease) (Chronic) Ischemic cardiomyopathy (Chronic) Essential hypertension (Chronic) Atherosclerotic heart disease of [place] coronary artery without angina pectoris (Chronic) Hypokalemia (Chronic) 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) Asthma (Chronic) Restrictive lung disease (Chronic) Paroxysmal atrial fibrillation (Chronic) Nonrheumatic tricuspid valve regurgitation (Chronic) 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) HLD (hyperlipidemia) (Chronic) DM type 2 (diabetes mellitus, type 2) (Chronic) Hypogammaglobulinemia (Chronic) Morbid obesity (Chronic) Migraines (Chronic) BARTOLO (obstructive sleep apnea) (Chronic) Medical History: Medical History (Last Reviewed 07/02/19 @ 15:13 by Christin Butler) COPD (chronic obstructive pulmonary disease) (Chronic) J44.9 Ischemic cardiomyopathy (Chronic) I25.5 Essential hypertension (Chronic) I10 Atherosclerotic heart disease of [place] coronary artery without angina pectoris (Chronic) I25.10 Asthma (Chronic) J45.909 Restrictive lung disease (Chronic) J98.4 Paroxysmal atrial fibrillation (Chronic) I48.0 Nonrheumatic tricuspid valve regurgitation (Chronic) I36.1 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) E03.2 HLD (hyperlipidemia) (Chronic) E78.5 DM type 2 (diabetes mellitus, type 2) (Chronic) E11.9 Hypogammaglobulinemia (Chronic) D80.1 Morbid obesity (Chronic) E66.01 Migraines (Chronic) G43.909 BARTOLO (obstructive sleep apnea) (Chronic) G47.33 Vertigo R42 History of hysterectomy Z90.710 CAD (coronary artery disease) (Inactive) I25.10 Allergies Beta-Blockers (Beta-Adrenergic Bloc Allergy (Verified 07/23/19 14:05) Shortness of breath doxycycline Allergy (Verified 07/23/19 14:05) Hives Penicillins Allergy (Verified 07/23/19 14:05) Rash red dye Allergy (Verified 07/23/19 14:05) Unknown Sulfa (Sulfonamide Antibiotics) Allergy (Verified 07/23/19 14:05) Rash theophylline Allergy (Verified 07/23/19 14:05) Rash codeine Adverse Reaction (Verified 07/23/19 14:05) Nausea Home Medications: Ambulatory Orders Medication Instructions Recorded Montelukast [Singulair] 10 mg PO DAILY 11/09/15 Ezetimibe [Zetia] 10 mg PO DAILY 03/26/17 fluticasone propionate 50 2 spray INTRANASAL DAILY 04/10/18 mcg/actuation nasal spray,suspension metronidazole 0.75 % topical gel 1 applic TOPICAL BID 09/29/18 levothyroxine 50 mcg tablet 50 mcg PO DAILY #90 tab 10/16/18 carvedilol 6.25 mg tablet 6.25 mg PO BID #180 tab 01/08/19 fenofibrate nanocrystallized 145 145 mg PO DAILY 03/22/19 mg tablet gabapentin 100 mg capsule 100 - 200 mg PO DAILY PRN PRN 03/22/19 levalbuterol 0.63 mg/3 mL solution 0.63 mg INHALATION Q4H PRN #120 04/16/19 for nebulization vial potassium chloride ER 20 mEq 20 meq PO TID #270 tab 05/01/19 tablet,extended release(part/cryst) budesonide-formoterol HFA 160 2 puff INHALATION BID PRN #10.2 g 05/11/19 mcg-4.5 mcg/actuation aerosol inhaler apixaban 5 mg tablet 5 mg PO BID #180 tab 07/16/19 Butalb/Acetaminophen/Caffeine 1 tab PO BID PRN PRN 07/23/19 [Pntjum-Njfksrqj-Wqtl 50-325-40] Clindamycin HCl [Cleocin] 300 mg PO Q6H 07/23/19 Furosemide 40 mg PO DAILY 07/23/19 Metronidazole 500 mg PO TID 07/23/19 Surgical History: Surgical History (Last Reviewed 07/02/19 @ 15:13 by Christin Butler) 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) Z95.1 History of eye surgery Z98.890 eyelid surgery History of cataract surgery Z98.49 History of cholecystectomy Z90.49 Surgical History: cataract, cholecystectomy, coronary bypass surgery, hysterectomy Psychiatric History: No pertinent psych hx 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 Lives: Spouse/ Significant Other Smoking Status: Never smoker Tobacco Use: Non-smoker Alcohol: None Drugs: None - *Family History Paternal Family History: Family History (Last Reviewed 07/02/19 @ 15:13 by Christin Butler) Father CAD (coronary artery disease) History Items: Heart Disease Maternal Family History: Family History (Last Reviewed 07/02/19 @ 15:13 by Christin Butler) Father CAD (coronary artery disease) History Items: Cancer Review of Systems Constitutional: Denies: Anorexia, Chills, Fever, Weakness, Weight Change Eyes: Denies: Blurred vision, Cataracts, Pain, Redness HEENT: Denies: Difficulty Hearing, Difficulty Swallowing, Head Aches, Hearing Changes, Sinus Congestion, Sinus Drainage, Sore Throat Cardiovascular: Reports: Palpitations. Denies: Chest Pain, Claudication, Light Headedness, Orthopnea, Paroxysmal Noc. Dyspnea Respiratory: Denies: Cough, Hemoptysis, Shortness of breath at rest, Shortness of breath upon exertion, Sputum production Gastrointestinal: Denies: Abdominal Pain, Hematemesis, Hematochezia, Nausea, Vomiting Genitourinary: Denies: Dysuria Musculoskeletal: Denies: Joint Pain, Joint stiffness, Joint swelling, Joint Tenderness Skin: Denies: Rash, Wounds Neurological: Denies: Numbness, Tingling, Focal weakness Psychiatric: Denies: Anxiety, Depression, Homicidal Ideations, Suicidal Ideations Hematologic/ Lymphatic: Denies: Easy Bruising, Easy Bleeding VTE Information - Inpt Only VTE Present on Admission: No VTE Pharm Prophylaxis ordered?: Yes - Physical Exam Vitals/I&O's: Vital Signs Temp Pulse Resp BP Pulse Ox 98.3 F 97 20 H 110/80 94 07/23/19 14:39 07/23/19 15:21 07/23/19 15:21 07/23/19 15:21 07/23/19 15:21 Oxygen Delivery Method Room Air Weight: 95.6 kg Body Mass Index (BMI) 39.8 General: Alert, Oriented x3, Cooperative, No apparent distress HEENT: Atraumatic, PERRLA, EOMI, Normocephalic Oral: Moist Mucosa Neck: Supple Lungs: Clear to auscultation, Normal air movement Cardiovascular: Normal S1, Normal S2, No murmurs, Irregular Rate, Tachycardic Abdomen: Bowel Sounds Present, Soft, Non Tender, Non-Distended, No Hepato- splenomegaly Extremities: No edema Skin: No rashes Musculoskeletal: No Tenderness to Palpation of Joints or Extremities Lymphatic: No Cervical, Supraclavicular, or Inguinal Adenopathy Neurological: Cranial nerves II-XII grossly intact, Neuro grossly intact Psych/Mental Status: Normal Affect, Appropriate Microbiology Past 72 Hours 07/23/19 14:30 Blood Culture (Wb) - Anticubital Right Blood Culture - Preliminary Laboratory Results 07/23/19 14:30: WBC 8.1, RBC 5.08, Hgb 14.4, Hct 42.1, MCV 82.9, MCH 28.3, MCHC 34.2, RDW Std Deviation 41.2, RDW Coeff of Keshia 13.6, Plt Count 347, MPV 10.8, Immature Gran % (Auto) 0.400, Neut % (Auto) 61.7, Lymph % (Auto) 24.1, [place] % (Auto) 11.3 H, Eos % (Auto) 1.5, Baso % (Auto) 1.0, Absolute Neuts (auto) 5.0, Absolute Lymphs (auto) 1.96, Nucleated RBC % 0 07/23/19 14:30: PT 16.7 H, INR 1.4, APTT 27.3 07/23/19 14:30: Sodium 139, Potassium 3.8, Chloride 107, Carbon Dioxide 24.0, Anion Gap 8, BUN 8, Creatinine 0.75, Estim Creat Clear Calc 36.68, Est GFR (MDRD) Af Amer 97, Est GFR (MDRD) Non-Af 80, BUN/Creatinine Ratio 10.7, Glucose 201 H, Calcium 8.9, Total Bilirubin 0.50, AST 60 H, ALT 72 H, Alkaline Phosphatase 85, Troponin I < 0.015, Total Protein 7.2, Albumin 3.6, Globulin 3.6, Albumin/Globulin Ratio 1.0 07/23/19 14:30: Lactic Acid 1.2 07/23/19 15:40: Urine Color Pending, Urine Clarity Pending, Urine pH Pending, Ur Specific [place] Pending, Urine Protein Pending, Urine Glucose (UA) Pending, Urine Ketones Pending, Urine Occult Blood Pending, Urine Nitrite Pending, Urine Bilirubin Pending, Urine Urobilinogen Pending, Ur Leukocyte Esterase Pending, Urine RBC Pending, Urine WBC Pending, Ur Squamous Epith Cells Pending, Urine Bacteria Pending, Urine Mucus Pending Assessment/Plan All Active Problems (Last Reviewed 07/02/19 @ 15:13 by Christin Butler) Sinusitis (Acute) RSV (respiratory syncytial virus infection) (Acute) Shortness of breath (Acute) Acute respiratory failure (Acute) Severe sepsis (Acute) MSSA (methicillin susceptible Staphylococcus aureus) pneumonia (Acute) 74 year old F with past medical history of paroxysmal atrial fibrillation, type 2 DM, hypogammaglobulinemia, hypertension, obesity, BARTOLO who comes in with comp laints of fatigue and palpitations ongoing for about 2 days. 1. A.fib with RVR, h/o paroxysmal atrial fibrillation, s/p IV cardizem in the ED Plan: We will admit to PCU, continue on Cardizem drip and Eliquis, will check trend troponins, TSH,Mg Cardiology consult 2. Hypertension, controlled, continue on carvedilol, will continue to monitor 3. Type 2 DM, diet controlled, last HbA1c with a primary care doctor in the [facility] was 6.9, Will continue with blood glucose checks with insulin sliding scale 4. 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 Obesity, BMI 37.1, lifestyle modification recommended 6. DVT PPx- on Eliquis Code Visit Inpatient E&M: 51291 Subs Hosp L2
[2019-07-23 15:58] LABS: Squamous Epithelial Cells - UA 0-5 SEEN /hpf (5-10); White Blood Cells 0-5 SEEN /hpf (0-5)
--- NOTE | 2019-07-23 16:38 | ECHOCS_ITS ---
Reason For Study: A. fib Procedure This was a 2D Doppler, Color Flow transthoracic echocardiogram. The study was technically difficult. Exam performed portable in patient room. Left Ventricle Normal LV size. The estimated ejection fraction is 40 %. Unable to assess diastolic dysfunction due to arrhythmia. Mild to moderate segmental systolic dysfunction (see wall motion). [place] : Akinetic. Septal [place] : Akinetic. Mid-Anterior : Severely Hypokinetic. Mid-anteroseptal : Hypokinetic. Basal anteroseptal: Hypokinetic. The rest of the wall segments are normal. Right Ventricle Normal RV size. Normal systolic function. Atria The left atrium is moderately enlarged. Normal right atrium. Mitral Valve Normal mitral valve. Mild (1+) eccentric mitral valve insufficiency. Tricuspid Valve Normal tricuspid valve. Mild (1+) tricuspid valve insufficiency. Pulmonary artery systolic pressure is 30 mmHg. Aortic Valve The aortic valve is not well visualized. Pulmonic Valve The pulmonic valve is not well visualized. Great Vessels Normal aortic root. The pulmonary artery is normal size. Normal inferior vena cava. Pericardium/Pleural No pericardial effusion. Medication Diluted definity 2ml given slow IV push to enhance endocardial definition. MMode/2D Measurements & Calculations LVIDd: 4.5 cm IVSd: 1.1 cm Ao root diam: 3.4 cm LVIDs: 3.7 cm LVPWd: 1.3 cm FS: 17.9 % LAV(MOD-bp): 70.3 ml LA A4 area: 26.0 cm2 LA dimension(2D): 5.1 cm LAV(MOD-bp) Indexed: 36.5 ml/m2 LAV(MOD-sp2): 49.8 ml LAV(MOD-sp4): 86.7 ml RA A4 area: 16.7 cm2 Doppler Measurements & Calculations MV E max mamta: 114.1 cm/sec Ao V2 max: 125.8 cm/sec LV V1 max: 102.3 cm/sec Ao max P.4 mmHg LV V1 max P.2 mmHg TR max mamta: 256.1 cm/sec TR max P.4 mmHg Interpretation Summary Normal LV size. The estimated ejection fraction is 40 %. Unable to assess diastolic dysfunction due to arrhythmia. Mild to moderate segmental systolic dysfunction (see wall motion). Contrast injection was performed. Ordering Physician: Sophie Victoria Referring Physician: Sophie Victoria Performed By: Lisa Ely RDCS
[2019-07-23 16:51] LABS: Magnesium 1.8 mg/dL (1.6-2.6)
--- NOTE | 2019-07-23 18:13 | PCM.CONS.C ---
Reason for Consult Date of Consultation: 07/23/19 History of Present Illness: The patient is a 74 year old F with a history of hypertension, paroxysmal atrial fibrillation, coronary artery disease status post coronary artery bypass surgery. She presented to the emergency room today because she had an episode of palpitations as well as shortness of breath and mild dizziness. She was seen in the emergency room was noted to be in atrial fibrillation with a rapid ventricular response rate of 175 bpm and was treated with intravenous diltiazem. She was transferred to the telemetry unit and cardiology was called for further evaluation and management. She has not had any syncope or presyncope and she denies any chest pain suggestive of angina. She has also been following up with the pulmonary service. [] Past Medical History Allergies/Adverse Reactions: Allergies Beta-Blockers (Beta-Adrenergic Bloc Allergy (Verified 07/23/19 14:05) Shortness of breath doxycycline Allergy (Verified 07/23/19 14:05) Hives Penicillins Allergy (Verified 07/23/19 14:05) Rash red dye Allergy (Verified 07/23/19 14:05) Unknown Sulfa (Sulfonamide Antibiotics) Allergy (Verified 07/23/19 14:05) Rash theophylline Allergy (Verified 07/23/19 14:05) Rash codeine Adverse Reaction (Verified 07/23/19 14:05) Nausea Home Medications: Ambulatory Orders Medication Instructions Recorded Montelukast [Singulair] 10 mg PO DAILY 11/09/15 Ezetimibe [Zetia] 10 mg PO DAILY 03/26/17 fluticasone propionate 50 2 spray INTRANASAL DAILY 04/10/18 mcg/actuation nasal spray,suspension metronidazole 0.75 % topical gel 1 applic TOPICAL BID 09/29/18 levothyroxine 50 mcg tablet 50 mcg PO DAILY #90 tab 10/16/18 carvedilol 6.25 mg tablet 6.25 mg PO BID #180 tab 01/08/19 fenofibrate nanocrystallized 145 145 mg PO DAILY 03/22/19 mg tablet gabapentin 100 mg capsule 100 - 200 mg PO DAILY PRN PRN 03/22/19 levalbuterol 0.63 mg/3 mL solution 0.63 mg INHALATION Q4H PRN #120 04/16/19 for nebulization vial potassium chloride ER 20 mEq 20 meq PO TID #270 tab 05/01/19 tablet,extended release(part/cryst) budesonide-formoterol HFA 160 2 puff INHALATION BID PRN #10.2 g 05/11/19 mcg-4.5 mcg/actuation aerosol inhaler apixaban 5 mg tablet 5 mg PO BID #180 tab 07/16/19 Butalb/Acetaminophen/Caffeine 1 tab PO BID PRN PRN 07/23/19 [Tejkth-Gsxyhchf-Ntyf 50-325-40] Clindamycin HCl [Cleocin] 300 mg PO Q6H 07/23/19 Furosemide 40 mg PO DAILY 07/23/19 Metronidazole 500 mg PO TID 07/23/19 Past Medical History (Chronic Problems): Chronic Problems (Last Reviewed 07/02/19 @ 15:13 by Christin Butler) COPD (chronic obstructive pulmonary disease) (Chronic) Ischemic cardiomyopathy (Chronic) Essential hypertension (Chronic) Atherosclerotic heart disease of [place] coronary artery without angina pectoris (Chronic) Hypokalemia (Chronic) 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) Asthma (Chronic) Restrictive lung disease (Chronic) Paroxysmal atrial fibrillation (Chronic) Nonrheumatic tricuspid valve regurgitation (Chronic) 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) HLD (hyperlipidemia) (Chronic) DM type 2 (diabetes mellitus, type 2) (Chronic) Hypogammaglobulinemia (Chronic) Morbid obesity (Chronic) Migraines (Chronic) BARTOLO (obstructive sleep apnea) (Chronic) Surgical History: cataract, cholecystectomy, coronary bypass surgery, hysterectomy Psychiatric History: No pertinent psych hx 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 - *Family History Paternal Family History: Family History (Last Reviewed 07/02/19 @ 15:13 by Christin Butler) Father CAD (coronary artery disease) History Items: Heart Disease Maternal Family History: Family History (Last Reviewed 07/02/19 @ 15:13 by Christin Butler) Father CAD (coronary artery disease) History Items: Cancer Lives: Spouse/ Significant Other Smoking Status: Never smoker Tobacco Use: Non-smoker Alcohol: None Drugs: None Review of Systems - Review of Systems General: Denies: Fever, Night Sweats, Fatigue HEENT: Denies: Vision Change Cardiovascular: Reports: Shortness of Breath, Palpitations. Denies: Chest Discomfort, Orthopnea, PND, Peripheral Edema, Lightheadedness, Dizziness, Near Syncope, Syncope Respiratory: Denies: Cough, Sputum Production, Hemoptysis Gastrointestinal: Denies: Hematemesis, Hematochezia, Melena Genitourinary: Denies: Dysuria, Hematuria Muscoloskeletal: Denies: Myalgias Skin: Denies: Rash Neurological: Denies: Dizziness Psychiatric: Reports: Anxiety Endocrine: Denies: Unexplained Weight Loss Hematologic/ Lymphatic: Denies: Anemia Subjectve: Pleasant lady in no distress Objective: Vital Signs Temp Pulse Resp BP Pulse Ox 97.9 F 116 H 18 119/93 H 94 07/23/19 18:00 07/23/19 18:00 07/23/19 18:00 07/23/19 18:00 07/23/19 18:00 Oxygen Delivery Method Room Air Weight: 209 lb 7.026 oz Body Mass Index (BMI) 37.0 Intake and Output for Last 24 Hours 07/21/19 07/22/19 07/23/19 23:59 23:59 23:59 Intake Total 3.75 / 3.75 Balance 3.75 / 3.75 General: Awake, Alert, Oriented x 3 HEENT: PERRL, EOMI, Sclera Non Icteric Neck: Supple, Good ROM, No Lymph Node Enlargement Lungs: Clear to auscultation Cardiovascular: Irregular Rhythm, Normal S1, Normal S2, No Murmurs, No Rubs, No Gallops Vascular: No Carotid Bruits, Normal Femoral Pulses, Normal Radial Pulses, Normal Dorsalis Pedal Pulse, Normal Posterior Tibial Pulses Abdomen: Bowel Sounds Present, Soft, Non Tender, No HSM, No Organomegaly Extremities: No Cyanosis, No Clubbing, No edema Musculoskeletal: No Erythema Skin: No Rashes Lymphatic: No Lymph Node Enlargement Neurological: No Focal Motor or Sensory Deficit Psych/Mental Status: Appropriate 07/23/19 14:30: WBC 8.1, RBC 5.08, Hgb 14.4, Hct 42.1, MCV 82.9, MCH 28.3, MCHC 34.2, Plt Count 347, MPV 10.8, Immature Gran % (Auto) 0.400, Neut % (Auto) 61.7, Lymph % (Auto) 24.1, [place] % (Auto) 11.3 H, Eos % (Auto) 1.5, Baso % (Auto) 1.0, Absolute Neuts (auto) 5.0, Nucleated RBC % 0 07/23/19 14:30: PT 16.7 H, INR 1.4, APTT 27.3 07/23/19 14:30: Sodium 139, Potassium 3.8, Chloride 107, Carbon Dioxide 24.0, Anion Gap 8, BUN 8, Creatinine 0.75, Est GFR (MDRD) Af Amer 97, Est GFR (MDRD) Non-Af 80, BUN/Creatinine Ratio 10.7, Glucose 201 H, Calcium 8.9, Total Bilirubin 0.50, Troponin I < 0.015 07/23/19 14:30: Lactic Acid 1.2 07/23/19 14:30: Magnesium 1.8 07/23/19 15:40: Urine Color Yellow, Urine Clarity Clear, Urine pH 6.0, Ur Specific [place] 1.010, Urine Protein Negative, Urine Glucose (UA) Normal, Urine Ketones Negative, Urine Occult Blood Negative, Urine Nitrite Negative, Urine Bilirubin Negative, Urine Urobilinogen Normal, Ur Leukocyte Esterase 100 H, Urine RBC 0 SEEN, Urine WBC 0-5 SEEN Rhythm: EKG: Atrial for ablation with rapid ventricular response rate of 175 bpm ECHO: Estimated EF of 50% Stress Test: Cardiac Cath: PCI: CT Surgery: Holter monitor: EPS: PPM: CXR: Chest CT Scan: Assessment/Plan 1. Atrial fibrillation Patient presents with atrial fibrillation which appears to be recent onset. The ventricular response rate is rather rapid. I would recommend at this time that we titrate her intravenous Cardizem to control her rate. She will also continue on the Eliquis at this particular time. We reevaluate her left ventricular function with an echocardiogram. 2. Status post coronary artery bypass surgery The patient appears to be stable at this time without any evidence of angina Will recommend continued follow-up 3. Hypertension Good control continue current medical therapy at this particular time Thank you for allowing me to participate in the care of your patient. Please don't hesitate to call if any issues arise
[2019-07-23 18:17] LABS: Thyroid Stim Hormone (TSH) 1.91 uIU/mL (0.358-3.74)
[2019-07-23 19:11] LABS: Bedside Glucose 164 mg/dL (70-110)
[2019-07-23] MEDS: Magnesium Oxide 400 MG Tablet PO (21:47)
[2019-07-23] MEDS: Carvedilol 6.25 MG Tablet PO (21:47)
[2019-07-23] MEDS: APIXABAN 5 MG TABLET PO (21:47)
[2019-07-23] MEDS: 0.9% Saline Lock 10 ML Syringe IV (21:48)
[2019-07-23] MEDS: Acetaminophen/Butalbital/Caffe 1 Tablet PO (21:48)
[2019-07-23 22:35] LABS: Bedside Glucose 168 mg/dL (70-110)
[2019-07-24] VITALS (16 sets, daily range): BP systolic 85–138; BP diastolic 59–104; PULSE 65–145; RESP 16–22; TEMP 36.6–37; O2SAT 91–96
[2019-07-24] MEDS: Acetaminophen 325 MG Tablet 650 MG PO (00:50)
[2019-07-24] MEDS: Levothyroxine 50 MCG Tablet PO (05:21)
[2019-07-24 06:45] LABS: Bedside Glucose 161 mg/dL (70-110)
[2019-07-24] MEDS: Budesonide Respules 0.5 MG/2 ML AMPUL.NEB. INHALATION ×2 (07:09→19:24)
[2019-07-24] MEDS: Albuterol 2.5 MG/3 ML VIAL.NEB. INHALATION (07:09)
[2019-07-24 07:33] LABS: Absolute Lymphocyte Count 1.57 X10^3/uL (0.83-4.51); Basophil# 0.06 X10^3/uL; Eosinophils% 3.5 % (0-5); Hemoglobin 13.2 g/dL (12.0-15.0); Lymphocyte # 1.57 X10^3/ul (4.0); Lymphocyte % 27.4 % (19-41); Mean Corp Hgb Conc 33.8 g/dL (32-36); Mean Corpuscular Hgb 28.5 pg (27.0-32.0); Mean Corpuscular Volume 84.2 fL (81-99); Mean Platelet Vol. 10.6 fl (6.2-12.0); Monocyte# 0.82 X10^3/uL; Monocyte% 14.3 % (0-10); NRBC Flagged by Analyzer 0 % (0-5); Neutrophil # 3.04 X10^3/uL (2.7-7.7); Neutrophil % 53.3 % (47-70); Platelet Count 278 K/mm3 (150-450); RBC Distribution Width SD 42.6 fl (35.1-43.9); Red Blood Count 4.63 M/mm3 (4.2-5.4); White Blood Count 5.7 K/mm3 (4.4-11.0)
[2019-07-24 08:02] LABS: AST(SGOT) 51 U/L (15-37); Alanine Aminotransfer ALT/SGPT 60 U/L (13-56); Albumin, Serum 3.1 g/dL (3.2-5.0); Alkaline Phosphatase 72 U/L (45-117); Anion Gap 6 (5-15); BUN 7 mg/dL (7-18); BUN/Creat Ratio 11.8 RATIO (10-20); Calcium,Total 8.5 mg/dL (8.5-10.1); Chloride 110 mmol/L (98-107); Creatinine, Serum 0.59 mg/dL (0.55-1.02); EST Glomerular Filtration Rate 105 mL/min (>60); Est Glom Filt Rate - Afr Amer 127 mL/min (>60); Estimated Creatinine Clearance 40.21 ml/min; Globulin 3.1 g/dL (2.2-4.2); Glucose 160 mg/dL (74-106); Magnesium 2.1 mg/dL (1.6-2.6); Protein, Total 6.2 g/dL (6.4-8.2); Sodium Level 142 mmol/L (136-145)
[2019-07-24] MEDS: Magnesium Oxide 400 MG Tablet PO ×2 (08:58→18:21)
[2019-07-24] MEDS: Carvedilol 6.25 MG Tablet PO ×2 (08:58→11:02)
[2019-07-24] MEDS: Furosemide 40 MG Tablet PO (08:59)
[2019-07-24] MEDS: APIXABAN 5 MG TABLET PO ×2 (08:59→21:24)
[2019-07-24] MEDS: Montelukast 10 MG Tablet PO (09:00)
[2019-07-24] MEDS: Fenofibrate 145 MG Tablet PO (09:00)
--- NOTE | 2019-07-24 09:04 | EKG12_ITS ---
Test Reason : TACHY Blood Pressure : / mmHG Vent. Rate : 175 BPM Atrial Rate : 192 BPM P-R Int : 000 ms QRS Dur : 076 ms QT Int : 264 ms P-R-T Axes : 000 -04 099 degrees QTc Int : 450 ms Atrial fibrillation with rapid ventricular response with premature ventricular or aberrantly conducte d complexes Nonspecific ST and T wave abnormality Abnormal ECG Confirmed by MARGARITA HERCULES, SHON ([id number]), avid editor DANYA REILLY ([id number]) on 07/25/2019 9:35:29 AM Referred By: Sophie Victoria Confirmed By:SHON AVILA MD
--- NOTE | 2019-07-24 09:04 | PCM.PN.CARD ---
Subjectve: The patient is awake and alert. She states she cannot sense her underlying cardiac dysrhythmia at this time. She denies ongoing chest discomfort or worsening shortness of breath/dyspnea. Objective: Vital Signs Temp Pulse Resp BP Pulse Ox 97.9 F 136 H 16 138/104 H 96 07/24/19 08:44 07/24/19 08:44 07/24/19 08:44 07/24/19 08:44 07/24/19 08:44 Oxygen Delivery Method Room Air Weight: 209 lb 10.554 oz Body Mass Index (BMI) 37.0 Intake and Output for Last 24 Hours 07/22/19 07/23/19 07/24/19 23:59 23:59 23:59 Intake Total 297.50 / 297.50 120 / 120 Balance 297.50 / 297.50 120 / 120 General: Awake, Alert, Oriented x 3, Cooperative, No Acute Distress HEENT: Atraumatic, Normocephalic, PERRL, EOMI, Sclera Non Icteric Oral: Moist Mucosa Neck: Supple, Good ROM, No JVD Lungs: - - No obvious rales or rhonchi Cardiovascular: Irregular Rhythm, Normal S1, Normal S2 Abdomen: Bowel Sounds Present, Soft, Non Tender Neurological: No Focal Motor or Sensory Deficit Psych/Mental Status: Appropriate 07/23/19 14:30: WBC 8.1, RBC 5.08, Hgb 14.4, Hct 42.1, MCV 82.9, MCH 28.3, MCHC 34.2, Plt Count 347, MPV 10.8, Immature Gran % (Auto) 0.400, Neut % (Auto) 61.7, Lymph % (Auto) 24.1, [place] % (Auto) 11.3 H, Eos % (Auto) 1.5, Baso % (Auto) 1.0, Absolute Neuts (auto) 5.0, Nucleated RBC % 0 07/23/19 14:30: PT 16.7 H, INR 1.4, APTT 27.3 07/23/19 14:30: Sodium 139, Potassium 3.8, Chloride 107, Carbon Dioxide 24.0, Anion Gap 8, BUN 8, Creatinine 0.75, Est GFR (MDRD) Af Amer 97, Est GFR (MDRD) Non-Af 80, BUN/Creatinine Ratio 10.7, Glucose 201 H, Calcium 8.9, Total Bilirubin 0.50, Troponin I < 0.015 07/23/19 14:30: Lactic Acid 1.2 07/23/19 14:30: Magnesium 1.8 07/23/19 15:40: Urine Color Yellow, Urine Clarity Clear, Urine pH 6.0, Ur Specific [place] 1.010, Urine Protein Negative, Urine Glucose (UA) Normal, Urine Ketones Negative, Urine Occult Blood Negative, Urine Nitrite Negative, Urine Bilirubin Negative, Urine Urobilinogen Normal, Ur Leukocyte Esterase 100 H, Urine RBC 0 SEEN, Urine WBC 0-5 SEEN 07/23/19 18:00: Troponin I < 0.015 07/23/19 21:00: Troponin I < 0.015 07/24/19 07:00: WBC 5.7, RBC 4.63, Hgb 13.2, Hct 39.0, MCV 84.2, MCH 28.5, MCHC 33.8, Plt Count 278, MPV 10.6, Immature Gran % (Auto) 0.500, Neut % (Auto) 53.3, Lymph % (Auto) 27.4, [place] % (Auto) 14.3 H, Eos % (Auto) 3.5, Baso % (Auto) 1.0, Absolute Neuts (auto) 3.0, Nucleated RBC % 0 07/24/19 07:00: Sodium 142, Potassium 4.0, Chloride 110 H, Carbon Dioxide 26.0, Anion Gap 6, BUN 7, Creatinine 0.59, Est GFR (MDRD) Af Amer 127, Est GFR (MDRD) Non-Af 105, BUN/Creatinine Ratio 11.8, Glucose 160 H, Calcium 8.5, Magnesium 2.1, Total Bilirubin 0.60 Rhythm: Atrial fibrillation with rapid ventricular response Medical Necessity - Tobacco Use Smoking Status: Never smoker Tobacco Use: Non-smoker Assessment/Plan 1. Atrial fibrillation with rapid ventricular response The patient remains in atrial fibrillation. The patient has been on beta-sara therapy and anticoagulant therapy. The patient was placed on IV diltiazem therapy although this was discontinued yesterday evening secondary to concerns of hypotension. The patient may need an antiarrhythmic to assist with her rhythm control. Based upon her clinical case/multiple medical issues and antiarrhythmic such as Tikosyn may be an appropriate antiarrhythmic for her barring unforeseen events. Thus she will be started on this medication to assist with her rhythm control. The patient may also need to be considered for synchronized biphasic DC cardioversion to regain sinus rhythm, if she does not convert with rate control and antiarrhythmic therapy, as long as she has been on anticoagulant therapy for an appropriate period of time. 2. CAD status post CABG The patient will continue to be monitored. She will continue medical therapy for this condition as deemed appropriate. 3. Hyperlipidemia The patient will continue risk factor evaluation and care as deemed appropriate. 4. Hypertension The patient will continue to have her blood pressure monitor and her medications adjusted as needed. 5. Diabetes mellitus The patient will continue under the care of internal medicine. 6. Pulmonary disease The patient has a long-standing history of pulmonary disease. An attempt will be made to adjust her medications to minimize any adverse impact with respect to her pulmonary process. Otherwise her pulmonary process will continue to be evaluated by internal medicine and pulmonology. This note was generated using a voice recognition system and there may be incorrect words, spelling or punctuation that were not noted when reviewing the office note prior to saving.
[2019-07-24] MEDS: Ezetimibe 10 MG Tablet PO (09:10)
--- NOTE | 2019-07-24 11:14 | PCM.PN.HOSP ---
Subjective: Shunt was seen and examined. Heart rate LDL and was still uncontrolled. Started on Tikosyn by cardiology. Patient converted to normal sinus rhythm. Denied any chest pain or dizziness or shortness of breath. Objective: Physical exam: General: Alert, Oriented x3, Cooperative, No apparent distress HEENT: Atraumatic, PERRLA, EOMI, Normocephalic Oral: Moist Mucosa Neck: Supple Lungs: Clear to auscultation, Normal air movement Cardiovascular: Normal S1, Normal S2, No murmurs, Irregular Rate, Tachycardic Abdomen: Bowel Sounds Present, Soft, Non Tender, Non-Distended, No Hepato-splenomegaly Extremities: No edema Skin: No rashes Musculoskeletal: No Tenderness to Palpation of Joints or Extremities Lymphatic: No Cervical, Supraclavicular, or Inguinal Adenopathy Neurological: Cranial nerves II-XII grossly intact, Neuro grossly intact Psych/Mental Status: Normal Affect, Appropriate Vitals/I&O's: Vital Signs Temp Pulse Resp BP Pulse Ox 98.2 F 145 H 16 118/72 94 07/24/19 11:00 07/24/19 11:00 07/24/19 11:00 07/24/19 11:00 07/24/19 11:00 Oxygen Delivery Method Room Air Weight: 95.1 kg Body Mass Index (BMI) 37.0 Intake and Output for Last 24 Hours 07/22/19 07/23/19 07/24/19 23:59 23:59 23:59 Intake Total 297.50 / 297.50 120 / 120 Balance 297.50 / 297.50 120 / 120 Microbiology Past 72 Hours 07/23/19 14:30 Blood Culture (Wb) - Anticubital Right Blood Culture - Preliminary Laboratory Results 07/23/19 14:30: WBC 8.1, RBC 5.08, Hgb 14.4, Hct 42.1, MCV 82.9, MCH 28.3, MCHC 34.2, RDW Std Deviation 41.2, RDW Coeff of [place] 13.6, Plt Count 347, MPV 10.8, Immature Gran % (Auto) 0.400, Neut % (Auto) 61.7, Lymph % (Auto) 24.1, [place] % (Auto) 11.3 H, Eos % (Auto) 1.5, Baso % (Auto) 1.0, Absolute Neuts (auto) 5.0, Absolute Lymphs (auto) 1.96, Nucleated RBC % 0 07/23/19 14:30: PT 16.7 H, INR 1.4, APTT 27.3 07/23/19 14:30: Sodium 139, Potassium 3.8, Chloride 107, Carbon Dioxide 24.0, Anion Gap 8, BUN 8, Creatinine 0.75, Estim Creat Clear Calc 36.68, Est GFR (MDRD) Af Amer 97, Est GFR (MDRD) Non-Af 80, BUN/Creatinine Ratio 10.7, Glucose 201 H, Calcium 8.9, Total Bilirubin 0.50, AST 60 H, ALT 72 H, Alkaline Phosphatase 85, Troponin I < 0.015, Total Protein 7.2, Albumin 3.6, Globulin 3.6, Albumin/Globulin Ratio 1.0 07/23/19 14:30: Lactic Acid 1.2 07/23/19 14:30: Magnesium 1.8 07/23/19 14:30: TSH 1.91 07/23/19 15:40: Urine Color Yellow, Urine Clarity Clear, Urine pH 6.0, Ur Specific [place] 1.010, Urine Protein Negative, Urine Glucose (UA) Normal, Urine Ketones Negative, Urine Occult Blood Negative, Urine Nitrite Negative, Urine Bilirubin Negative, Urine Urobilinogen Normal, Ur Leukocyte Esterase 100 H, Urine RBC 0 SEEN, Urine WBC 0-5 SEEN, Ur Squamous Epith Cells 0-5 SEEN, Urine Bacteria 0 SEEN, Urine Mucus 0 SEEN 07/23/19 18:00: Troponin I < 0.015 07/23/19 18:36: POC Glucose 164 H 07/23/19 21:00: Troponin I < 0.015 07/23/19 21:43: POC Glucose 168 H 07/24/19 06:36: POC Glucose 161 H 07/24/19 07:00: WBC 5.7, RBC 4.63, Hgb 13.2, Hct 39.0, MCV 84.2, MCH 28.5, MCHC 33.8, RDW Std Deviation 42.6, RDW Coeff of [place] 14.0, Plt Count 278, MPV 10.6, Immature Gran % (Auto) 0.500, Neut % (Auto) 53.3, Lymph % (Auto) 27.4, [place] % (Auto) 14.3 H, Eos % (Auto) 3.5, Baso % (Auto) 1.0, Absolute Neuts (auto) 3.0, Absolute Lymphs (auto) 1.57, Nucleated RBC % 0 07/24/19 07:00: Sodium 142, Potassium 4.0, Chloride 110 H, Carbon Dioxide 26.0, Anion Gap 6, BUN 7, Creatinine 0.59, Estim Creat Clear Calc 40.21, Est GFR (MDRD) Af Amer 127, Est GFR (MDRD) Non-Af 105, BUN/Creatinine Ratio 11.8, Glucose 160 H, Calcium 8.5, Magnesium 2.1, Total Bilirubin 0.60, AST 51 H, ALT 60 H, Alkaline Phosphatase 72, Total Protein 6.2 L, Albumin 3.1 L, Globulin 3.1, Albumin/Globulin Ratio 1.0 Current Medications Acetaminophen (Tylenol) 650 mg PO Q6H PRN PRN PRN Reason: Pain Score 1-3/Temp > 100.7 F Last Admin: 07/24/19 00:50 Dose: 650 mg Documented by: Acetaminophen/Butalbital/Caffeine (Fioricet) 1 tablet PO BID PRN PRN PRN Reason: MIGRAINE SYMPTOMS Last Admin: 07/23/19 21:48 Dose: 1 tablet Documented by: Al Hydroxide/Mg Hydroxide (Mylanta Ii) 30 ml PO Q6H PRN PRN PRN Reason: Gastric Burning Albuterol Sulfate (Ventolin Aerosols) 1.25 mg INHALATION Q4H PRN PRN Reason: Asthma J45.909 Albuterol Sulfate (Ventolin Aerosols) 2.5 mg INHALATION Q6HWA.RT [facility] Last Admin: 07/24/19 07:09 Dose: 2.5 mg Documented by: Apixaban (Eliquis) 5 mg PO BID [facility] Last Admin: 07/24/19 08:59 Dose: 5 mg Documented by: Budesonide (Pulmicort Aerosol) 0.5 mg INHALATION Q12H.RT [facility] Last Admin: 07/24/19 07:09 Dose: 0.5 mg Documented by: Carvedilol (Coreg) 12.5 mg PO BID [facility] Dextrose (D50w Syringe) 0 gm IV X1 PRN; Protocol PRN Reason: Hypoglycemia Dofetilide (Tikosyn) 250 mcg PO Q12 [place]ACIE Ezetimibe (Zetia) 10 mg PO DAILY [facility] Last Admin: 07/24/19 09:10 Dose: 10 mg Documented by: Fenofibrate (Tricor) 145 mg PO DAILY [facility] Last Admin: 07/24/19 09:00 Dose: 145 mg Documented by: Fluticasone Propionate (Flonase Nasal Mathias) 2 spray NASAL DAILY [facility] Furosemide (Lasix) 40 mg PO DAILY [facility] Last Admin: 07/24/19 08:59 Dose: 40 mg Documented by: Glucagon () 1 mg IM .X1 PRN PRN Reason: Hypoglycemia Insulin Human Lispro (Humalog Kwikpen (Bkc)) 0 unit SC ACHS [facility]; Protocol Last Admin: 07/24/19 06:36 Dose: Not Given Documented by: Levothyroxine Sodium (Synthroid) 50 mcg PO DAILY@0600 [facility] Last Admin: 07/24/19 05:21 Dose: 50 mcg Documented by: Magnesium Hydroxide (Milk Of Magnesia) 30 ml PO DAILY PRN PRN PRN Reason: Constipation Magnesium Oxide (Mag-Ox 400) 400 mg PO BIDCM [facility] Last Admin: 07/24/19 08:58 Dose: 400 mg Documented by: Montelukast Sodium (Singulair) 10 mg PO DAILY [facility] Last Admin: 07/24/19 09:00 Dose: 10 mg Documented by: Nitroglycerin (Nitrostat) 0.4 mg SUBLINGUAL Q5M PRN PRN Reason: CARDIAC/CHEST PAIN Ondansetron HCl (Zofran) 4 mg IV Q8H PRN PRN PRN Reason: Nausea Potassium Chloride (K-Dur) 20 meq PO TID [facility] Last Admin: 07/24/19 05:21 Dose: 20 meq Documented by: Sodium Chloride () 10 - 40 ml IV UD PRN PRN Reason: SALINE FLUSH Last Admin: 07/23/19 21:48 Dose: 10 ml Documented by: STROKE Vital Signs/Narrative: Vital Signs Temp Pulse Resp BP Pulse Ox 07/24/19 11:00 98.2 F 145 H 16 118/72 94 07/24/19 08:44 97.9 F 136 H 16 138/104 H 96 Medical Necessity - Tobacco Use Smoking Status: Never smoker Tobacco Use: Non-smoker Assessment/Plan All Active Problems (Last Reviewed 07/02/19 @ 15:13 by Christin Butler) Sinusitis (Acute) RSV (respiratory syncytial virus infection) (Acute) Shortness of breath (Acute) Acute respiratory failure (Acute) Severe sepsis (Acute) MSSA (methicillin susceptible Staphylococcus aureus) pneumonia (Acute) 74 year old F with past medical history of paroxysmal atrial fibrillation, type 2 DM, hypogammaglobulinemia, hypertension, obesity, BARTOLO who comes in with complaints of fatigue and palpitations ongoing for about 2 days. 1. A.fib with RVR, h/o paroxysmal atrial fibrillation, s/p IV cardizem in the ED Patient converted to normal sinus rhythm, continue on increased dose of carvedilol, Tikosyn Will continue to monitor 2. Hypertension, controlled, continue on carvedilol, will continue to monitor 3. Type 2 DM, diet controlled, last HbA1c with a primary care doctor in the [facility] was 6.9, Will discontinue insulin sliding scale 4. Hypogammaglobulinemia, follows with an fur mixer in the outpatient 5. Obesity, BMI 37.1, lifestyle modification recommended 6. Hypothyroidism, continue on levothyroxine 7. Hyperlipidemia, on Zetia and TriCor 8. DVT PPx- on Eliquis Code Visit Inpatient E&M: 83039 Subs Hosp L2
[2019-07-24] MEDS: Dofetilide 250 MCG Capsule PO ×2 (11:22→21:24)
[2019-07-24] MEDS: Fluticasone 0.05% 1 SPRAY NASAL.SRY 2 SPRAY NASAL (11:23)
--- NOTE | 2019-07-24 11:59 | CASEMGMT ---
Patient has a Healthcare Power of Plater Barrel on file at [facility] as well as a DNRCC order. Lorena CARIAS MSW
--- NOTE | 2019-07-24 12:26 | CASEMGMT ---
RN CARLA Assessment Presentation: Afib with RVR Intro role of CM and purpose of RN CM assessment to patient. Pt is sitting in chair, awake, alert and able to participate in assessment. Demographics, PCP and Pharmacy verified. Pt states she is generally independent at home, does not use ambulatory devices. is active and able to assist if any care needs arise. Pt states [facility] for her hip and has one session left. PCP: Dr. Oswald Specialists: Dr. Aburto, cardiology; Dr. Sevilla, pulmonology. [facility] Insurance: [facility] Prescription Benefit: yes LNOK: Lives independent Living Arrangements: Lives in one story condo, no steps. Pt independent in ADL's. Transportation: drives or drives. DME: grab bars in shower, Cpap, nebulizer, walker, cane. HHC: none Patient DC goals: Home DC PLAN: Home with family support. RN CM let pt know to contact CM if any concerns re: dc arise. Guillermina FOREMANN RN ACM
[2019-07-24] MEDS: metroNIDAZOLE 500 MG Tablet PO ×2 (14:11→21:24)
--- NOTE | 2019-07-24 16:24 | CHAPLAIN ---
patient was sleeping at time of attempted visit
[2019-07-24] MEDS: Clindamycin HCl 150 MG Capsule 300 MG PO (18:19)
[2019-07-24] MEDS: Carvedilol 12.5 MG Tablet PO (21:24)
[2019-07-25] VITALS (14 sets, daily range): BP systolic 116–131; BP diastolic 64–78; PULSE 65–73; RESP 16–20; TEMP 36.6–37; O2SAT 94–96
--- NOTE | 2019-07-25 00:24 | EKG12_ITS ---
Test Reason : TIKOSYN Blood Pressure : / mmHG Vent. Rate : 068 BPM Atrial Rate : 068 BPM P-R Int : 176 ms QRS Dur : 082 ms QT Int : 468 ms P-R-T Axes : 020 013 059 degrees QTc Int : 497 ms Sinus rhythm with occasional Premature ventricular complexes Low voltage QRS Prolonged QT Abnormal ECG When compared with ECG of 23-JUL-2019 14:45, MANUAL COMPARISON REQUIRED, DATA IS UNCONFIRMED Confirmed by MONALISA FONTAINE ([id number]), loan expeditor MAY JONES ([id number]) on 07/27/2019 11:37:53 AM Referred By: Sophie Victoria Confirmed By:MONALISA FONTAINE
[2019-07-25] MEDS: Clindamycin HCl 150 MG Capsule 300 MG PO ×5 (00:37→23:38)
[2019-07-25] MEDS: Acetaminophen 325 MG Tablet 650 MG PO ×2 (02:27→14:38)
[2019-07-25] MEDS: Levothyroxine 50 MCG Tablet PO (05:50)
[2019-07-25] MEDS: metroNIDAZOLE 500 MG Tablet PO ×3 (05:50→20:48)
[2019-07-25 06:10] LABS: Anion Gap 8 (5-15); BUN 10 mg/dL (7-18); BUN/Creat Ratio 13.9 RATIO (10-20); Calcium,Total 8.6 mg/dL (8.5-10.1); Chloride 107 mmol/L (98-107); Creatinine, Serum 0.72 mg/dL (0.55-1.02); EST Glomerular Filtration Rate 84 mL/min (>60); Est Glom Filt Rate - Afr Amer 101 mL/min (>60); Estimated Creatinine Clearance 40.21 ml/min; Glucose 146 mg/dL (74-106); Potassium 4.4 mmol/L (3.5-5.1); Sodium Level 140 mmol/L (136-145)
[2019-07-25] MEDS: Budesonide Respules 0.5 MG/2 ML AMPUL.NEB. INHALATION ×2 (07:24→19:08)
[2019-07-25] MEDS: Magnesium Oxide 400 MG Tablet PO ×2 (08:27→17:27)
[2019-07-25] MEDS: Carvedilol 12.5 MG Tablet PO ×2 (08:28→20:48)
[2019-07-25] MEDS: Fluticasone 0.05% 1 SPRAY NASAL.SRY 2 SPRAY NASAL (08:28)
[2019-07-25] MEDS: APIXABAN 5 MG TABLET PO ×2 (08:28→20:50)
[2019-07-25] MEDS: Montelukast 10 MG Tablet PO (08:29)
[2019-07-25] MEDS: Dofetilide 250 MCG Capsule PO ×2 (08:29→20:49)
[2019-07-25] MEDS: Furosemide 40 MG Tablet PO (08:29)
[2019-07-25] MEDS: Fenofibrate 145 MG Tablet PO (08:30)
[2019-07-25] MEDS: Ezetimibe 10 MG Tablet PO (08:30)
--- NOTE | 2019-07-25 09:50 | PCM.PN.CARD ---
Subjectve: The patient is awake and alert today. She appears to be resting comfortably. She has no acute complaints. Objective: Vital Signs Temp Pulse Resp BP Pulse Ox 98.3 F 67 16 131/78 H 95 07/25/19 08:23 07/25/19 08:23 07/25/19 08:23 07/25/19 08:23 07/25/19 08:48 Oxygen Delivery Method Room Air Weight: 206 lb 9.17 oz Body Mass Index (BMI) 37.0 Intake and Output for Last 24 Hours 07/23/19 07/24/19 07/25/19 23:59 23:59 23:59 Intake Total 297.50 / 297.50 420 / 420 120 / 120 Balance 297.50 / 297.50 420 / 420 120 / 120 General: Awake, Alert, Oriented x 3, Cooperative, No Acute Distress, Obese HEENT: Atraumatic, Normocephalic, PERRL, EOMI, Sclera Non Icteric Oral: Moist Mucosa Neck: Supple, Good ROM, No JVD Lungs: - - No obvious rales or rhonchi Cardiovascular: Regular Rhythm, Normal S1, Normal S2 Abdomen: Bowel Sounds Present, Soft, Non Tender Neurological: No Focal Motor or Sensory Deficit Psych/Mental Status: Appropriate 07/25/19 05:25: Sodium 140, Potassium 4.4, Chloride 107, Carbon Dioxide 25.0, Anion Gap 8, BUN 10, Creatinine 0.72, Est GFR (MDRD) Af Amer 101, Est GFR (MDRD) Non-Af 84, BUN/Creatinine Ratio 13.9, Glucose 146 H, Calcium 8.6 Rhythm: Sinus rhythm EKG: Sinus rhythm; no acute ECG changes Medical Necessity - Tobacco Use Smoking Status: Never smoker Tobacco Use: Non-smoker Assessment/Plan 1. Atrial fibrillation with rapid ventricular response The patient remains in atrial fibrillation. The patient has been on beta-sara therapy and anticoagulant therapy. The patient has received Tikosyn therapy. Status post initiation of Tikosyn therapy she was noted to have returned to sinus rhythm. The patient will continue Tikosyn therapy with cardiac rhythm monitoring and ECG follow-up. 2. CAD status post CABG The patient will continue to be monitored. She will continue medical therapy for this condition as deemed appropriate. 3. Hyperlipidemia The patient will continue risk factor evaluation and care as deemed appropriate. 4. Hypertension The patient will continue to have her blood pressure monitor and her medications adjusted as needed. 5. Diabetes mellitus The patient will continue under the care of internal medicine. 6. Pulmonary disease The patient has a long-standing history of pulmonary disease. An attempt will be made to adjust her medications to minimize any adverse impact with respect to her pulmonary process. Otherwise her pulmonary process will continue to be evaluated by internal medicine and pulmonology. Comment: The patient's case has been discussed and reviewed with Dr. Victoria. This note was generated using a voice recognition system and there may be incorrect words, spelling or punctuation that were not noted when reviewing the office note prior to saving.
--- NOTE | 2019-07-25 11:06 | PCM.PN.HOSP ---
Subjective: Follow-up for A. fib with RVR. Patient was seen and examined. Remains in NSR. Denied any new complaints. No abdominal pain or diarrhea or fever or chills Objective: Physical exam: General: Alert, Oriented x3, Cooperative, No apparent distress HEENT: Atraumatic, PERRLA, EOMI, Normocephalic Oral: Moist Mucosa Neck: Supple Lungs: Clear to auscultation, Normal air movement Cardiovascular: Normal S1, Normal S2, No murmurs, Irregular Rate, Tachycardic Abdomen: Bowel Sounds Present, Soft, Non Tender, Non-Distended, No Hepato-splenomegaly Extremities: No edema Skin: No rashes Musculoskeletal: No Tenderness to Palpation of Joints or Extremities Lymphatic: No Cervical, Supraclavicular, or Inguinal Adenopathy Neurological: Cranial nerves II-XII grossly intact, Neuro grossly intact Psych/Mental Status: Normal Affect, Appropriate Vitals/I&O's: Vital Signs Temp Pulse Resp BP Pulse Ox 98.3 F 71 16 131/78 H 95 07/25/19 08:23 07/25/19 10:59 07/25/19 08:23 07/25/19 08:23 07/25/19 08:48 Oxygen Delivery Method Room Air Weight: 93.7 kg Body Mass Index (BMI) 37.0 Intake and Output for Last 24 Hours 07/23/19 07/24/19 07/25/19 23:59 23:59 23:59 Intake Total 297.50 / 297.50 420 / 420 120 / 120 Balance 297.50 / 297.50 420 / 420 120 / 120 Microbiology Past 72 Hours 07/23/19 15:40 Urine, Clean Catch Urine Culture - Final Mixed Gram Positive Organisms 07/23/19 14:30 Blood Culture (Wb) - Anticubital Right Blood Culture - Preliminary Laboratory Results 07/25/19 05:25: Sodium 140, Potassium 4.4, Chloride 107, Carbon Dioxide 25.0, Anion Gap 8, BUN 10, Creatinine 0.72, Estim Creat Clear Calc 40.21, Est GFR (MDRD) Af Amer 101, Est GFR (MDRD) Non-Af 84, BUN/Creatinine Ratio 13.9, Glucose 146 H, Calcium 8.6 Current Medications Acetaminophen (Tylenol) 650 mg PO Q6H PRN PRN PRN Reason: Pain Score 1-3/Temp > 100.7 F Last Admin: 07/25/19 02:27 Dose: 650 mg Documented by: Acetaminophen/Butalbital/Caffeine (Fioricet) 1 tablet PO BID PRN PRN PRN Reason: MIGRAINE SYMPTOMS Last Admin: 07/23/19 21:48 Dose: 1 tablet Documented by: Al Hydroxide/Mg Hydroxide (Mylanta Ii) 30 ml PO Q6H PRN PRN PRN Reason: Gastric Burning Albuterol Sulfate (Ventolin Aerosols) 1.25 mg INHALATION Q4H PRN PRN Reason: Asthma J45.909 Albuterol Sulfate (Ventolin Aerosols) 2.5 mg INHALATION Q6HWA.RT [facility] Last Admin: 07/25/19 07:20 Dose: Not Given Documented by: Apixaban (Eliquis) 5 mg PO BID [facility] Last Admin: 07/25/19 08:28 Dose: 5 mg Documented by: Budesonide (Pulmicort Aerosol) 0.5 mg INHALATION Q12H.RT [facility] Last Admin: 07/25/19 07:24 Dose: 0.5 mg Documented by: Carvedilol (Coreg) 12.5 mg PO BID [facility] Last Admin: 07/25/19 08:28 Dose: 12.5 mg Documented by: Clindamycin HCl (Cleocin) 300 mg PO Q6 [facility] Stop: 07/26/19 18:01 Last Admin: 07/25/19 05:50 Dose: 300 mg Documented by: Dofetilide (Tikosyn) 250 mcg PO Q12 [facility] Last Admin: 07/25/19 08:29 Dose: 250 mcg Documented by: Ezetimibe (Zetia) 10 mg PO DAILY [facility] Last Admin: 07/25/19 08:30 Dose: 10 mg Documented by: Fenofibrate (Tricor) 145 mg PO DAILY [facility] Last Admin: 07/25/19 08:30 Dose: 145 mg Documented by: Fluticasone Propionate (Flonase Nasal [place]) 2 spray NASAL DAILY [facility] Last Admin: 07/25/19 08:28 Dose: 2 spray Documented by: Furosemide (Lasix) 40 mg PO DAILY [facility] Last Admin: 07/25/19 08:29 Dose: 40 mg Documented by: Levothyroxine Sodium (Synthroid) 50 mcg PO DAILY@0600 [facility] Last Admin: 07/25/19 05:50 Dose: 50 mcg Documented by: Magnesium Hydroxide (Milk Of Magnesia) 30 ml PO DAILY PRN PRN PRN Reason: Constipation Magnesium Oxide (Mag-Ox 400) 400 mg PO BIDCM [facility] Last Admin: 07/25/19 08:27 Dose: 400 mg Documented by: Metronidazole (Flagyl) 500 mg PO TID [facility] Stop: 07/26/19 14:01 Last Admin: 07/25/19 05:50 Dose: 500 mg Documented by: Montelukast Sodium (Singulair) 10 mg PO DAILY [facility] Last Admin: 07/25/19 08:29 Dose: 10 mg Documented by: Nitroglycerin (Nitrostat) 0.4 mg SUBLINGUAL Q5M PRN PRN Reason: CARDIAC/CHEST PAIN Ondansetron HCl (Zofran) 4 mg IV Q8H PRN PRN PRN Reason: Nausea Potassium Chloride (K-Dur) 20 meq PO TID [facility] Last Admin: 07/25/19 05:50 Dose: 20 meq Documented by: Sodium Chloride () 10 - 40 ml IV UD PRN PRN Reason: SALINE FLUSH Last Admin: 07/23/19 21:48 Dose: 10 ml Documented by: STROKE Vital Signs/Narrative: Vital Signs Temp Pulse Resp BP Pulse Ox 07/25/19 10:59 71 07/25/19 08:48 95 07/25/19 08:23 98.3 F 67 16 131/78 H 96 07/25/19 07:27 65 07/25/19 07:25 72 18 Medical Necessity - Tobacco Use Smoking Status: Never smoker Tobacco Use: Non-smoker Assessment/Plan All Active Problems (Last Reviewed 07/02/19 @ 15:13 by Christin Butler) Sinusitis (Acute) RSV (respiratory syncytial virus infection) (Acute) Shortness of breath (Acute) Acute respiratory failure (Acute) Severe sepsis (Acute) MSSA (methicillin susceptible Staphylococcus aureus) pneumonia (Acute) 74 year old F with past medical history of paroxysmal atrial fibrillation, type 2 DM, hypogammaglobulinemia, hypertension, obesity, BARTOLO who comes in with complaints of fatigue and palpitations ongoing for about 2 days. 1. A.fib with RVR, h/o paroxysmal atrial fibrillation, in NSR Continue on carvedilol 12.5 mg twice daily, Tikosyn, Eliquis 2. Hypertension, controlled, continue on carvedilol, will continue to monitor 3. Type 2 DM, diet controlled, last HbA1c with a primary care doctor in the [facility] was 6.9, 4. Hypogammaglobulinemia, follows with an customer insight analyst in the outpatient 5. Obesity, BMI 37.1, lifestyle modification recommended 6. Hypothyroidism, continue on levothyroxine 7. Hyperlipidemia, on Zetia and TriCor 8. DVT PPx- on Eliquis Code Visit Inpatient E&M: 18666 Subs Hosp L2
--- NOTE | 2019-07-25 11:30 | EKG12_ITS ---
Test Reason : MEDICATION Blood Pressure : / mmHG Vent. Rate : 065 BPM Atrial Rate : 065 BPM P-R Int : 190 ms QRS Dur : 088 ms QT Int : 498 ms P-R-T Axes : 055 005 046 degrees QTc Int : 517 ms Sinus rhythm with Premature atrial complexes Low voltage QRS Borderline ECG When compared with ECG of 24-JUL-2019 14:09, MANUAL COMPARISON REQUIRED, DATA IS UNCONFIRMED Confirmed by MONALISA FONTAINE ([id number]), science editor MAY JONES ([id number]) on 07/27/2019 11:38:05 AM Referred By: Sophie Victoria Confirmed By:MONALISA FONTAINE
--- NOTE | 2019-07-25 13:36 | NURSING ---
read and reviewed sn documentation
--- NOTE | 2019-07-25 15:16 | CHAPLAIN ---
Type of Pastoral Visit _x__ Initial Visit ___ Follow-up Visit ___ On-call Visit ___ General Patient Visit ___ Spiritual Assessment ___ Family Conference ___ Bereavement ___ Rapid Response ___ Code Blue ___ Other (describe below) Pastoral Care Referral From _x__ Patient ___ Family ___ Nurse ___ Physician ___ Stage Set Up Worker ___ Senior Director Of [employer] ___ Other (describe below) Sacrament/Intervention _x__ Active listening ___ Anointing ___ Mormonism ___ Bereavement ___ Communion _x__ Rachel exploration ___ _x__ Life review _x__ Prayer ___ Reconciliation ___ Sacrament of Sick ___ Supportive presence ___ Wedding ___ Other (describe below) Pastoral Comments
--- NOTE | 2019-07-25 20:51 | EKG12_ITS ---
Test Reason : CARD.MED Blood Pressure : / mmHG Vent. Rate : 069 BPM Atrial Rate : 069 BPM P-R Int : 178 ms QRS Dur : 082 ms QT Int : 454 ms P-R-T Axes : 029 006 056 degrees QTc Int : 486 ms Normal sinus rhythm Normal ECG When compared with ECG of 25-JUL-2019 00:31, MANUAL COMPARISON REQUIRED, DATA IS UNCONFIRMED Confirmed by ZIGGY HERCULES, NOEL ([id number]), metropolitan editor DANYA REILLY ([id number]) on 07/31/2019 1:47:03 PM Referred By: Sophie Victoria Confirmed By:PAIGE TRINH MD
[2019-07-26] VITALS (15 sets, daily range): BP systolic 117–142; BP diastolic 59–74; PULSE 62–82; RESP 16–22; TEMP 36.7–36.9; O2SAT 93–98
[2019-07-26] MEDS: Acetaminophen 325 MG Tablet 650 MG PO ×2 (02:01→22:21)
[2019-07-26] MEDS: Clindamycin HCl 150 MG Capsule 300 MG PO ×3 (06:05→17:17)
[2019-07-26] MEDS: metroNIDAZOLE 500 MG Tablet PO ×2 (06:05→14:31)
[2019-07-26] MEDS: Levothyroxine 50 MCG Tablet PO (06:11)
[2019-07-26 06:29] LABS: Anion Gap 8 (5-15); BUN 11 mg/dL (7-18); BUN/Creat Ratio 17.5 RATIO (10-20); Calcium,Total 8.5 mg/dL (8.5-10.1); Chloride 107 mmol/L (98-107); Creatinine, Serum 0.63 mg/dL (0.55-1.02); EST Glomerular Filtration Rate 98 mL/min (>60); Est Glom Filt Rate - Afr Amer 119 mL/min (>60); Estimated Creatinine Clearance 40.21 ml/min; Glucose 164 mg/dL (74-106); Sodium Level 140 mmol/L (136-145)
[2019-07-26] MEDS: Budesonide Respules 0.5 MG/2 ML AMPUL.NEB. INHALATION ×2 (07:13→19:10)
--- NOTE | 2019-07-26 08:19 | PCM.PN.CARD ---
Subjectve: The patient is awake and alert. She denies any acute chest discomfort or difficulty breathing or obvious ongoing palpitations. Objective: Vital Signs Temp Pulse Resp BP Pulse Ox 98.0 F 70 16 119/70 98 07/26/19 02:03 07/26/19 07:26 07/26/19 07:12 07/26/19 02:03 07/26/19 07:12 Oxygen Delivery Method Room Air Weight: 209 lb 3.499 oz Body Mass Index (BMI) 37.0 Intake and Output for Last 24 Hours 07/24/19 07/25/19 07/26/19 23:59 23:59 23:59 Intake Total 420 / 420 1320 / 1520 600 / 600 Balance 420 / 420 1320 / 1520 600 / 600 General: Awake, Alert, Oriented x 3, Cooperative, No Acute Distress, Obese HEENT: Atraumatic, Normocephalic, PERRL, EOMI, Sclera Non Icteric Oral: Moist Mucosa Neck: Supple, Good ROM, No JVD Lungs: Clear to auscultation Cardiovascular: Regular Rhythm, Normal S1, Normal S2 Abdomen: Bowel Sounds Present, Soft, Non Tender, Obese Neurological: No Focal Motor or Sensory Deficit Psych/Mental Status: Appropriate 07/26/19 05:55: Sodium 140, Potassium 4.0, Chloride 107, Carbon Dioxide 25.0, Anion Gap 8, BUN 11, Creatinine 0.63, Est GFR (MDRD) Af Amer 119, Est GFR (MDRD) Non-Af 98, BUN/Creatinine Ratio 17.5, Glucose 164 H, Calcium 8.5 Rhythm: Sinus rhythm; PVCs; 1 ventricular quadruplet EKG: Sinus rhythm; borderline waxing and waning prolongation of the QT/QTc interval Medical Necessity - Tobacco Use Smoking Status: Never smoker Tobacco Use: Non-smoker Assessment/Plan 1. Atrial fibrillation with rapid ventricular response The patient remains in sinus rhythm at this time. The patient has been on beta-sara therapy, with dose adjustment as tolerated based upon concerns of her underlying cardiac history and her pulmonary history, and anticoagulant therapy. The patient has received Tikosyn therapy as she was not thought to be an ideal candidate based upon her cardiopulmonary history for agents such as flecainide/Tambocor, sotalol/Betapace, or amiodarone. She has remained in sinus rhythm. She has been noted to have an occasional PVC. She was noted to have 1 ventricular quadruplet reported without obvious symptoms/compromise. The follow-up ECGs have demonstrated borderline waxing and waning prolongation of the QT/QTc interval on her current dose. The tentative plan will be to decrease her current Tikosyn dose to 125 mcg p.o. daily and continue to monitor her rate, rhythm, and electrocardiogram. 2. CAD status post CABG The patient will continue to be monitored. She will continue medical therapy for this condition as deemed appropriate. 3. Hyperlipidemia The patient will continue risk factor evaluation and care as deemed appropriate. 4. Hypertension The patient will continue to have her blood pressure monitor and her medications adjusted as needed. 5. Diabetes mellitus The patient will continue under the care of internal medicine. 6. Pulmonary disease The patient has a long-standing history of pulmonary disease. An attempt will be made to adjust her medications to minimize any adverse impact with respect to her pulmonary process. Otherwise her pulmonary process will continue to be evaluated by internal medicine and pulmonology. Comment: The patient's case was discussed and reviewed with Dr. Mejia of [facility] electrophys[facility] in his capacity as a member of the [facility] medical staff who assists in the care of patients at [facility]. This note was generated using a voice recognition system and there may be incorrect words, spelling or punctuation that were not noted when reviewing the office note prior to saving.
[2019-07-26] MEDS: APIXABAN 5 MG TABLET PO ×2 (08:29→22:19)
[2019-07-26] MEDS: Magnesium Oxide 400 MG Tablet PO ×2 (08:29→17:17)
[2019-07-26] MEDS: Carvedilol 12.5 MG Tablet PO ×2 (08:29→22:19)
[2019-07-26] MEDS: Fluticasone 0.05% 1 SPRAY NASAL.SRY 2 SPRAY NASAL (08:29)
[2019-07-26] MEDS: Furosemide 40 MG Tablet PO (08:30)
[2019-07-26] MEDS: Montelukast 10 MG Tablet PO (08:30)
[2019-07-26] MEDS: Ezetimibe 10 MG Tablet PO (08:32)
[2019-07-26] MEDS: Fenofibrate 145 MG Tablet PO (08:32)
[2019-07-26] MEDS: Dofetilide 125 MCG Capsule PO ×2 (11:11→22:20)
[2019-07-26 11:49] LABS: Magnesium 2.3 mg/dL (1.6-2.6)
--- NOTE | 2019-07-26 12:18 | PCM.PN.HOSP ---
Subjective: Follow-up for A. fib with RVR. Patient was seen and examined. Remains in NSR. Denied any new complaints. No abdominal pain or diarrhea or fever or chills She completed her antibiotics. Objective: Physical exam: General: Alert, Oriented x3, Cooperative, No apparent distress HEENT: Atraumatic, PERRLA, EOMI, Normocephalic Oral: Moist Mucosa Neck: Supple Lungs: Clear to auscultation, Normal air movement Cardiovascular: Normal S1, Normal S2, No murmurs, Irregular Rate, Tachycardic Abdomen: Bowel Sounds Present, Soft, Non Tender, Non-Distended, No Hepato-splenomegaly Extremities: No edema Skin: No rashes Musculoskeletal: No Tenderness to Palpation of Joints or Extremities Lymphatic: No Cervical, Supraclavicular, or Inguinal Adenopathy Neurological: Cranial nerves II-XII grossly intact, Neuro grossly intact Psych/Mental Status: Normal Affect, Appropriate Vitals/I&O's: Vital Signs Temp Pulse Resp BP Pulse Ox 98.3 F 65 17 120/69 96 07/26/19 08:26 07/26/19 08:26 07/26/19 08:26 07/26/19 08:26 07/26/19 08:26 Oxygen Delivery Method Room Air Weight: 94.9 kg Body Mass Index (BMI) 37.0 Intake and Output for Last 24 Hours 07/24/19 07/25/19 07/26/19 23:59 23:59 23:59 Intake Total 420 / 420 1320 / 1520 1550 / 1550 Balance 420 / 420 1320 / 1520 1550 / 1550 Microbiology Past 72 Hours 07/23/19 14:40 Blood Culture (Wb) - Left Forearm Blood Culture - Preliminary No growth in 48 hours. 07/23/19 15:40 Urine, Clean Catch Urine Culture - Final Mixed Gram Positive Organisms 07/23/19 14:30 Blood Culture (Wb) - Anticubital Right Blood Culture - Preliminary Laboratory Results 07/26/19 05:55: Sodium 140, Potassium 4.0, Chloride 107, Carbon Dioxide 25.0, Anion Gap 8, BUN 11, Creatinine 0.63, Estim Creat Clear Calc 40.21, Est GFR (MDRD) Af Amer 119, Est GFR (MDRD) Non-Af 98, BUN/Creatinine Ratio 17.5, Glucose 164 H, Calcium 8.5 07/26/19 05:55: Magnesium 2.3 Current Medications Acetaminophen (Tylenol) 650 mg PO Q6H PRN PRN PRN Reason: Pain Score 1-3/Temp > 100.7 F Last Admin: 07/26/19 02:01 Dose: 650 mg Documented by: Acetaminophen/Butalbital/Caffeine (Fioricet) 1 tablet PO BID PRN PRN PRN Reason: MIGRAINE SYMPTOMS Last Admin: 07/23/19 21:48 Dose: 1 tablet Documented by: Al Hydroxide/Mg Hydroxide (Mylanta Ii) 30 ml PO Q6H PRN PRN PRN Reason: Gastric Burning Albuterol Sulfate (Ventolin Aerosols) 1.25 mg INHALATION Q4H PRN PRN Reason: Asthma J45.909 Albuterol Sulfate (Ventolin Aerosols) 2.5 mg INHALATION Q6HWA.RT [facility] Last Admin: 07/26/19 07:12 Dose: Not Given Documented by: Apixaban (Eliquis) 5 mg PO BID [facility] Last Admin: 07/26/19 08:29 Dose: 5 mg Documented by: Budesonide (Pulmicort Aerosol) 0.5 mg INHALATION Q12H.RT [facility] Last Admin: 07/26/19 07:13 Dose: 0.5 mg Documented by: Carvedilol (Coreg) 12.5 mg PO BID [facility] Last Admin: 07/26/19 08:29 Dose: 12.5 mg Documented by: Clindamycin HCl (Cleocin) 300 mg PO Q6 [facility] Stop: 07/26/19 18:01 Last Admin: 07/26/19 11:11 Dose: 300 mg Documented by: Dofetilide (Tikosyn) 125 mcg PO Q12 [facility] Last Admin: 07/26/19 11:11 Dose: 125 mcg Documented by: Ezetimibe (Zetia) 10 mg PO DAILY [facility] Last Admin: 07/26/19 08:32 Dose: 10 mg Documented by: Fenofibrate (Tricor) 145 mg PO DAILY [facility] Last Admin: 07/26/19 08:32 Dose: 145 mg Documented by: Fluticasone Propionate (Flonase Nasal [place]) 2 spray NASAL DAILY [facility] Last Admin: 07/26/19 08:29 Dose: 2 spray Documented by: Furosemide (Lasix) 40 mg PO DAILY [facility] Last Admin: 07/26/19 08:30 Dose: 40 mg Documented by: Levothyroxine Sodium (Synthroid) 50 mcg PO DAILY@0600 [facility] Last Admin: 07/26/19 06:11 Dose: 50 mcg Documented by: Magnesium Hydroxide (Milk Of Magnesia) 30 ml PO DAILY PRN PRN PRN Reason: Constipation Magnesium Oxide (Mag-Ox 400) 400 mg PO BIDCM [facility] Last Admin: 07/26/19 08:29 Dose: 400 mg Documented by: Metronidazole (Flagyl) 500 mg PO TID [facility] Stop: 07/26/19 14:01 Last Admin: 07/26/19 06:05 Dose: 500 mg Documented by: Montelukast Sodium (Singulair) 10 mg PO DAILY [facility] Last Admin: 07/26/19 08:30 Dose: 10 mg Documented by: Nitroglycerin (Nitrostat) 0.4 mg SUBLINGUAL Q5M PRN PRN Reason: CARDIAC/CHEST PAIN Ondansetron HCl (Zofran) 4 mg IV Q8H PRN PRN PRN Reason: Nausea Potassium Chloride (K-Dur) 20 meq PO TID [facility] Last Admin: 07/26/19 06:06 Dose: 20 meq Documented by: Sodium Chloride () 10 - 40 ml IV UD PRN PRN Reason: SALINE FLUSH Last Admin: 07/23/19 21:48 Dose: 10 ml Documented by: STROKE Vital Signs/Narrative: Vital Signs Temp Pulse Resp BP Pulse Ox 07/26/19 08:26 98.3 F 65 17 120/69 96 Medical Necessity - Tobacco Use Smoking Status: Never smoker Tobacco Use: Non-smoker Assessment/Plan All Active Problems (Last Reviewed 07/02/19 @ 15:13 by Christin Butler) Sinusitis (Acute) RSV (respiratory syncytial virus infection) (Acute) Shortness of breath (Acute) Acute respiratory failure (Acute) Severe sepsis (Acute) MSSA (methicillin susceptible Staphylococcus aureus) pneumonia (Acute) 74 year old F with past medical history of paroxysmal atrial fibrillation, type 2 DM, hypogammaglobulinemia, hypertension, obesity, BARTOLO who comes in with complaints of fatigue and palpitations ongoing for about 2 days. 1. A.fib with RVR, h/o paroxysmal atrial fibrillation, in NSR Continue on carvedilol 12.5 mg twice daily, Tikosyn 125mcg daily, po Eliquis 2. Hypertension, controlled, continue on carvedilol, will continue to monitor 3. Type 2 DM, diet controlled, last HbA1c with a primary care doctor in the [facility] system was 6.9, 4. Hypogammaglobulinemia, follows with an regulator assembler in the outpatient 5. Obesity, BMI 37.1, lifestyle modification recommended 6. Hypothyroidism, continue on levothyroxine 7. Hyperlipidemia, on Zetia and TriCor 8. DVT PPx- on Eliquis Code Visit Inpatient E&M: 10239 Subs Hosp L2
--- NOTE | 2019-07-26 14:15 | EKG12_ITS ---
Test Reason : MEDICATION Blood Pressure : / mmHG Vent. Rate : 065 BPM Atrial Rate : 065 BPM P-R Int : 190 ms QRS Dur : 084 ms QT Int : 498 ms P-R-T Axes : 018 -02 035 degrees QTc Int : 517 ms Sinus rhythm with occasional Premature ventricular complexes Septal infarct , age undetermined Prolonged QT Abnormal ECG When compared with ECG of 25-JUL-2019 11:33, MANUAL COMPARISON REQUIRED, DATA IS UNCONFIRMED Confirmed by ZIGGY HERCULES, NOEL ([id number]), editor map DANYA REILLY ([id number]) on 07/31/2019 1:46:04 PM Referred By: Sophie Victoria Confirmed By:PAIGE TRINH MD
[2019-07-27] VITALS (8 sets, daily range): BP systolic 109–123; BP diastolic 62–65; PULSE 60–98; RESP 16–18; TEMP 36.3–36.6; O2SAT 93–96
--- NOTE | 2019-07-27 01:20 | EKG12_ITS ---
Test Reason : MEDICATION Blood Pressure : / mmHG Vent. Rate : 060 BPM Atrial Rate : 060 BPM P-R Int : 166 ms QRS Dur : 092 ms QT Int : 500 ms P-R-T Axes : 027 002 057 degrees QTc Int : 500 ms Sinus rhythm with occasional Premature ventricular complexes Septal MT, age undetermined, cannot be excluded Prolonged QT Abnormal ECG Confirmed by MARGARITA HERCULES, SHON ([id number]), video tape editor DANYA REILLY ([id number]) on 07/31/2019 1:51:14 PM Referred By: Sophie Victoria Confirmed By:SHON AVILA MD
[2019-07-27] MEDS: Albuterol 2.5 MG/3 ML VIAL.NEB. INHALATION ×2 (01:45→14:05)
[2019-07-27] MEDS: Acetaminophen/Butalbital/Caffe 1 Tablet PO (04:27)
[2019-07-27] MEDS: Levothyroxine 50 MCG Tablet PO (06:12)
[2019-07-27] MEDS: Budesonide Respules 0.5 MG/2 ML AMPUL.NEB. INHALATION (06:54)
[2019-07-27 07:43] LABS: Anion Gap 9 (5-15); BUN 12 mg/dL (7-18); BUN/Creat Ratio 18.4 RATIO (10-20); Calcium,Total 8.6 mg/dL (8.5-10.1); Chloride 104 mmol/L (98-107); Creatinine, Serum 0.65 mg/dL (0.55-1.02); EST Glomerular Filtration Rate 94 mL/min (>60); Est Glom Filt Rate - Afr Amer 114 mL/min (>60); Estimated Creatinine Clearance 40.21 ml/min; Glucose 143 mg/dL (74-106); Potassium 4.1 mmol/L (3.5-5.1); Sodium Level 138 mmol/L (136-145)
--- NOTE | 2019-07-27 07:46 | EKG12_ITS ---
Test Reason : Blood Pressure : / mmHG Vent. Rate : 063 BPM Atrial Rate : 063 BPM P-R Int : 168 ms QRS Dur : 090 ms QT Int : 464 ms P-R-T Axes : 023 -07 051 degrees QTc Int : 474 ms Normal sinus rhythm Septal infarct , age undetermined , cannot be excluded Abnormal ECG Confirmed by MARGARITA HERCULES, SHON ([id number]), video tape editor DANYA REILLY ([id number]) on 07/31/2019 1:51:40 PM Referred By: Sophie Victoria Confirmed By:SHON AVILA MD
--- NOTE | 2019-07-27 08:10 | PCM.PN.CARD ---
Subjectve: The patient appears to be awake and alert. She has been resting comfortably. She has had no new acute cardiovascular complaints. Objective: Vital Signs Temp Pulse Resp BP Pulse Ox 97.4 F L 74 16 117/65 95 07/27/19 04:10 07/27/19 07:01 07/27/19 06:54 07/27/19 04:10 07/27/19 06:54 Oxygen Delivery Method Room Air Weight: 207 lb 10.807 oz Body Mass Index (BMI) 37.0 Intake and Output for Last 24 Hours 07/25/19 07/26/19 07/27/19 23:59 23:59 23:59 Intake Total 1320 / 1520 2515 / 2515 200 / 200 Balance 1320 / 1520 2515 / 2515 200 / 200 General: Awake, Alert, Oriented x 3, Cooperative, No Acute Distress, Obese HEENT: Atraumatic, Normocephalic, PERRL, EOMI, Sclera Non Icteric Oral: Moist Mucosa Neck: Supple, Good ROM Lungs: - - Scattered inspiratory/expiratory wheezing Cardiovascular: Regular Rhythm, Premature Ectopic Beats, Normal S1, Normal S2 Abdomen: Bowel Sounds Present, Soft, Non Tender Extremities: Trace RLE Edema, Trace LLE Edema Neurological: No Focal Motor or Sensory Deficit Psych/Mental Status: Appropriate 07/26/19 05:55: Magnesium 2.3 07/27/19 06:08: Sodium 138, Potassium 4.1, Chloride 104, Carbon Dioxide 25.0, Anion Gap 9, BUN 12, Creatinine 0.65, Est GFR (MDRD) Af Amer 114, Est GFR (MDRD) Non-Af 94, BUN/Creatinine Ratio 18.4, Glucose 143 H, Calcium 8.6 Rhythm: Sinus rhythm; PACs/PVC EKG: This rhythm; occasional PVC; waxing and waning prolonged QT/QTc interval Medical Necessity - Tobacco Use Smoking Status: Never smoker Tobacco Use: Non-smoker Assessment/Plan 1. Atrial fibrillation with rapid ventricular response The patient remains in sinus rhythm at this time. The patient has been on beta-sara therapy, with dose adjustment as tolerated based upon concerns of her underlying cardiac history and her pulmonary history, and anticoagulant therapy. The patient has received Tikosyn therapy as she was not thought to be an ideal candidate based upon her cardiopulmonary history for agents such as flecainide/Tambocor, sotalol/Betapace, or amiodarone. She has remained in sinus rhythm. She has been noted to have an occasional PVC. She was noted to have 1 ventricular quadruplet reported without obvious symptoms/compromise. The follow-up ECGs have demonstrated borderline waxing and waning prolongation of the QT/QTc interval on her current dose. Yesterday the patient's Tikosyn dose was decreased to 125 mcg p.o. twice daily. She will have follow-up ECGs. 2. CAD status post CABG The patient will continue to be monitored. She will continue medical therapy for this condition as deemed appropriate. 3. Hyperlipidemia The patient will continue risk factor evaluation and care as deemed appropriate. 4. Hypertension The patient will continue to have her blood pressure monitor and her medications adjusted as needed. 5. Diabetes mellitus The patient will continue under the care of internal medicine. 6. Pulmonary disease The patient has a long-standing history of pulmonary disease. An attempt will be made to adjust her medications to minimize any adverse impact with respect to her pulmonary process. Otherwise her pulmonary process will continue to be evaluated by internal medicine and pulmonology. Comment: The patient's case was discussed and reviewed Tuesday with Dr. Mejia of [facility] electrophysiology in his capacity as a member of the [facility] medical staff who assists in the care of patients at [facility]. The consensus was to continue with Tikosyn therapy at the lower dose and continue to monitor and follow the patient. This note was generated using a voice recognition system and there may be incorrect words, spelling or punctuation that were not noted when reviewing the office note prior to saving.
[2019-07-27] MEDS: Dofetilide 125 MCG Capsule PO (09:34)
[2019-07-27] MEDS: Magnesium Hydroxide 30 ML UDC PO (09:34)
[2019-07-27] MEDS: Furosemide 40 MG Tablet PO (09:34)
[2019-07-27] MEDS: Fenofibrate 145 MG Tablet PO (09:34)
[2019-07-27] MEDS: Montelukast 10 MG Tablet PO (09:34)
[2019-07-27] MEDS: APIXABAN 5 MG TABLET PO (09:34)
[2019-07-27] MEDS: Ezetimibe 10 MG Tablet PO (09:34)
[2019-07-27] MEDS: Carvedilol 12.5 MG Tablet PO (09:35)
[2019-07-27] MEDS: Magnesium Oxide 400 MG Tablet PO (09:35)
--- NOTE | 2019-07-27 12:30 | EKG12_ITS ---
Test Reason : SISIKASON Blood Pressure : / mmHG Vent. Rate : 070 BPM Atrial Rate : 070 BPM P-R Int : 182 ms QRS Dur : 084 ms QT Int : 444 ms P-R-T Axes : 016 -04 038 degrees QTc Int : 479 ms Normal sinus rhythm Poor R wave progression Confirmed by MARGARITA HERCULES, SHON ([id number]), food expeditor DANYA REILLY ([id number]) on 07/31/2019 1:52:01 PM Referred By: Sophie Victoria Confirmed By:SHON AVILA MD
--- NOTE | 2019-07-27 12:54 | PCM.DC ---
- Discharge Diagnoses Reason(s) for Visit for Discharge Instructions: Fatigue, palpitations You will use the following diet at home:: Calorie/Carbohydrate Controlled (specify 1200, 1400, etc) - 1800, Cardiac Your food should be the consistency of: Regular Your liquids should be the consistency of: Regular/Thin Discharge Activity: Return to Normal Activity Additional Instructions: Take note of changes to your medications. Monitor your diet and weigh yourself everyday. Follow-up with your primary care doctor within 1-[address] Aburto in 2 weeks. Allergies/Adverse Reactions: Allergies Beta-Blockers (Beta-Adrenergic Bloc Allergy (Verified 07/23/19 14:05) Shortness of breath doxycycline Allergy (Verified 07/23/19 14:05) Hives Penicillins Allergy (Verified 07/23/19 14:05) Rash Sulfa (Sulfonamide Antibiotics) Allergy (Verified 07/23/19 14:05) Rash theophylline Allergy (Verified 07/23/19 14:05) Rash codeine Adverse Reaction (Verified 07/23/19 14:05) Nausea Medications to take at Discharge Montelukast [Singulair] 10 mg PO DAILY 11/09/15 Ezetimibe [Zetia] 10 mg PO DAILY 03/26/17 fluticasone propionate 50 mcg/actuation nasal spray,suspension 2 spray INTRANASAL DAILY 04/10/18 levothyroxine 50 mcg tablet 50 mcg PO DAILY #90 tab 10/16/18 fenofibrate nanocrystallized 145 mg tablet 145 mg PO DAILY 03/22/19 levalbuterol 0.63 mg/3 mL solution for nebulization 0.63 mg INHALATION Q4H PRN #120 vial 04/16/19 potassium chloride ER 20 mEq tablet,extended release(part/cryst) 20 meq PO TID #270 tab 05/01/19 budesonide-formoterol HFA 160 mcg-4.5 mcg/actuation aerosol inhaler 2 puff INHALATION BID PRN #10.2 g 05/11/19 apixaban 5 mg tablet 5 mg PO BID #180 tab 07/16/19 Butalb/Acetaminophen/Caffeine [Iiknqk-Ifjjmgau-Sysq 50-325-40] 1 tab PO BID PRN PRN 07/23/19 Furosemide 40 mg PO DAILY 07/23/19 Acetaminophen [Tylenol Tablet] 650 mg PO Q6H PRN PRN tab 07/27/19 Carvedilol [Coreg (Beta Daniel)] 12.5 mg PO BID #60 tab 07/27/19 Dofetilide [Tikosyn] 125 mcg PO Q12 #60 cap 07/27/19 Nitroglycerin (INPATIENT USE) [Nitrostat] 0.4 mg SUBLINGUAL Q5M PRN #10 tab.subl 07/27/19 Senna/Docusate Sodium [Senokot-S] 2 tab PO DAILY PRN PRN #60 tab 07/27/19 The following prescriptions were given: Carvedilol [Coreg (Beta Daniel)] 12.5 mg PO BID #60 tab Transmission Status: Received by [id number] Nitroglycerin (INPATIENT USE) [Nitrostat] 0.4 mg SUBLINGUAL Q5M PRN #10 tab.subl PRN Reason: Cardiac/Chest Pain Transmission Status: Received by [id number] Senna/Docusate Sodium [Senokot-S] 2 tab PO DAILY PRN PRN #60 tab PRN Reason: CONSTIPATION Transmission Status: Received by [id number] Dofetilide [Tikosyn] 125 mcg PO Q12 #60 cap Transmission Status: Pending to [facility] Primary Care Physician: Christi Oswald MD [Primary Care Provider] - Please follow up with your Primary Care Physician in: within 1-2 weeks Test Results: Test results from this visit will be discussed in further detail at your follow-up appointment, if applicable. Please Follow Up With: Christi Oswald MD Please Follow Up With: Julio Sevilla DO When: within 1-2 weeks Please Follow Up With: Abraham Aburto MD When: in 2 weeks Proposed Discharge Date: 07/27/19
--- NOTE | 2019-07-27 13:03 | PCM.DC.SUM ---
Discharge Date and Diagnosis Date of Admission: 07/23/19 Date of Discharge: 07/27/19 - Primary Discharge Diagnosis A. 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 She was recently seen in the emergency department on 07/17/19 and discharged with antibiotics for acute diverticulitis. She had followed up with her primary care doctor and was found to have elevated heart rate. When she came to the emergency department her EKG showed A. fib with RVR with a heart rate 175. She was started on IV Cardizem. She was persistently tachycardic despite being on Cardizem. Cardiology was consulted. He was continued on her carvedilol with an increased dose of 12.5 mg p.o. twice daily. She became hypotensive. Patient was started on Tikosyn with monitoring of her QTC. She converted to normal sinus rhythm but was kept in the hospital 2 more days to monitor her QTC. Patient completed her antibiotics in the hospital here. Subjective: On the day of discharge, patient was seen and examined. Denied any new complaints. No abdominal pain or dizziness or palpitation. Remains in normal sinus rhythm on telemetry. EKGs show QTC of 500 Objective: Physical exam: General: Alert, Oriented x3, Cooperative, No apparent distress HEENT: Atraumatic, PERRLA, EOMI, Normocephalic Oral: Moist Mucosa Neck: Supple Lungs: Clear to auscultation, Normal air movement Cardiovascular: Normal S1, Normal S2, No murmurs, Irregular Rate, Tachycardic Abdomen: Bowel Sounds Present, Soft, Non Tender, Non-Distended, No Hepato-splenomegaly Extremities: No edema Skin: No rashes Musculoskeletal: No Tenderness to Palpation of Joints or Extremities Lymphatic: No Cervical, Supraclavicular, or Inguinal Adenopathy Neurological: Cranial nerves II-XII grossly intact, Neuro grossly intact Psych/Mental Status: Normal Affect, Appropriate - Physical Exam Vitals/I&O's: Vital Signs Temp Pulse Resp BP Pulse Ox 97.6 F L 64 16 109/62 96 07/27/19 12:52 07/27/19 12:52 07/27/19 12:52 07/27/19 12:52 07/27/19 12:52 Oxygen Delivery Method Room Air Weight: 94.2 kg Body Mass Index (BMI) 37.0 Intake and Output for Last 24 Hours 07/25/19 07/26/19 07/27/19 23:59 23:59 23:59 Intake Total 1320 / 1520 2515 / 2515 560 / 560 Balance 1320 / 1520 2515 / 2515 560 / 560 Microbiology Past 72 Hours 07/23/19 14:40 Blood Culture (Wb) - Left Forearm Blood Culture - Preliminary No growth in 48 hours. 07/23/19 15:40 Urine, Clean Catch Urine Culture - Final Mixed Gram Positive Organisms Laboratory Results 07/27/19 06:08: Sodium 138, Potassium 4.1, Chloride 104, Carbon Dioxide 25.0, Anion Gap 9, BUN 12, Creatinine 0.65, Estim Creat Clear Calc 40.21, Est GFR (MDRD) Af Amer 114, Est GFR (MDRD) Non-Af 94, BUN/Creatinine Ratio 18.4, Glucose 143 H, Calcium 8.6 Current Medications Acetaminophen (Tylenol) 650 mg PO Q6H PRN PRN PRN Reason: Pain Score 1-3/Temp > 100.7 F Last Admin: 07/26/19 22:21 Dose: 650 mg Documented by: Acetaminophen/Butalbital/Caffeine (Fioricet) 1 tablet PO BID PRN PRN PRN Reason: MIGRAINE SYMPTOMS Last Admin: 07/27/19 04:27 Dose: 1 tablet Documented by: Al Hydroxide/Mg Hydroxide (Mylanta Ii) 30 ml PO Q6H PRN PRN PRN Reason: Gastric Burning Albuterol Sulfate (Ventolin Aerosols) 1.25 mg INHALATION Q4H PRN PRN Reason: Asthma J45.909 Albuterol Sulfate (Ventolin Aerosols) 2.5 mg INHALATION Q6HWA.RT [facility] Last Admin: 07/27/19 01:45 Dose: 2.5 mg Documented by: Apixaban (Eliquis) 5 mg PO BID [facility] Last Admin: 07/27/19 09:34 Dose: 5 mg Documented by: Budesonide (Pulmicort Aerosol) 0.5 mg INHALATION Q12H.RT [facility] Last Admin: 07/27/19 06:54 Dose: 0.5 mg Documented by: Carvedilol (Coreg) 12.5 mg PO BID [facility] Last Admin: 07/27/19 09:35 Dose: 12.5 mg Documented by: Dofetilide (Tikosyn) 125 mcg PO Q12 [facility] Last Admin: 07/27/19 09:34 Dose: 125 mcg Documented by: Ezetimibe (Zetia) 10 mg PO DAILY [facility] Last Admin: 07/27/19 09:34 Dose: 10 mg Documented by: Fenofibrate (Tricor) 145 mg PO DAILY [facility] Last Admin: 07/27/19 09:34 Dose: 145 mg Documented by: Fluticasone Propionate (Flonase Nasal [place]) 2 spray NASAL DAILY [facility] Last Admin: 07/27/19 09:35 Dose: Not Given Documented by: Furosemide (Lasix) 40 mg PO DAILY [facility] Last Admin: 07/27/19 09:34 Dose: 40 mg Documented by: Levothyroxine Sodium (Synthroid) 50 mcg PO DAILY@0600 [facility] Last Admin: 07/27/19 06:12 Dose: 50 mcg Documented by: Magnesium Hydroxide (Milk Of Magnesia) 30 ml PO DAILY PRN PRN PRN Reason: Constipation Last Admin: 07/27/19 09:34 Dose: 30 ml Documented by: Magnesium Oxide (Mag-Ox 400) 400 mg PO BIDCM [facility] Last Admin: 07/27/19 09:35 Dose: 400 mg Documented by: Montelukast Sodium (Singulair) 10 mg PO DAILY [facility] Last Admin: 07/27/19 09:34 Dose: 10 mg Documented by: Nitroglycerin (Nitrostat) 0.4 mg SUBLINGUAL Q5M PRN PRN Reason: CARDIAC/CHEST PAIN Ondansetron HCl (Zofran) 4 mg IV Q8H PRN PRN PRN Reason: Nausea Potassium Chloride (K-Dur) 20 meq PO TID [facility] Last Admin: 07/27/19 12:52 Dose: 20 meq Documented by: Senna/Docusate Sodium (Senokot-S, [place]-Colace) 2 tablet PO DAILY PRN PRN PRN Reason: CONSTIPATION Sodium Chloride () 10 - 40 ml IV UD PRN PRN Reason: SALINE FLUSH Last Admin: 07/23/19 21:48 Dose: 10 ml Documented by: Discharge Diet: Low fat/ Low Cholesterol, 2000 mg Sodium Diet Discharge Activity: Return to Normal Activity Home Medications: Medications to take at Discharge Montelukast [Singulair] 10 mg PO DAILY 11/09/15 Ezetimibe [Zetia] 10 mg PO DAILY 03/26/17 fluticasone propionate 50 mcg/actuation nasal spray,suspension 2 spray INTRANASAL DAILY 04/10/18 levothyroxine 50 mcg tablet 50 mcg PO DAILY #90 tab 10/16/18 fenofibrate nanocrystallized 145 mg tablet 145 mg PO DAILY 03/22/19 levalbuterol 0.63 mg/3 mL solution for nebulization 0.63 mg INHALATION Q4H PRN #120 vial 04/16/19 potassium chloride ER 20 mEq tablet,extended release(part/cryst) 20 meq PO TID #270 tab 05/01/19 budesonide-formoterol HFA 160 mcg-4.5 mcg/actuation aerosol inhaler 2 puff INHALATION BID PRN #10.2 g 05/11/19 apixaban 5 mg tablet 5 mg PO BID #180 tab 07/16/19 Butalb/Acetaminophen/Caffeine [Oyzycd-Iwzzqkou-Rkff 50-325-40] 1 tab PO BID PRN PRN 07/23/19 Furosemide 40 mg PO DAILY 07/23/19 Acetaminophen [Tylenol Tablet] 650 mg PO Q6H PRN PRN tab 07/27/19 Carvedilol [Coreg (Beta Daniel)] 12.5 mg PO BID #60 tab 07/27/19 Dofetilide [Tikosyn] 125 mcg PO Q12 #60 cap 07/27/19 Nitroglycerin (INPATIENT USE) [Nitrostat] 0.4 mg SUBLINGUAL Q5M PRN #10 tab.subl 07/27/19 Senna/Docusate Sodium [Senokot-S] 2 tab PO DAILY PRN PRN #60 tab 07/27/19 Following Prescrptions Were Given to Patient: Carvedilol [Coreg (Beta Daniel)] 12.5 mg PO BID #60 tab Transmission Status: Received by [facility]/pharmacy #[id number] Nitroglycerin (INPATIENT USE) [Nitrostat] 0.4 mg SUBLINGUAL Q5M PRN #10 tab.subl PRN Reason: Cardiac/Chest Pain Transmission Status: Re[facility] by [id number] Senna/Docusate Sodium [Senokot-S] 2 tab PO DAILY PRN PRN #60 tab PRN Reason: CONSTIPATION Transmission Status: Re[facility] by [id number] Dofetilide [Tikosyn] 125 mcg PO Q12 #60 cap Transmission Status: Received by [facility] Primary Care Physician: Christi Oswald MD [Primary Care Provider] - Please follow up with your Primary Care Physician in: within 1-2 weeks Please Follow Up With: Christi Oswald MD Please Follow Up With: Julio Sevilla DO When: within 1-2 weeks Please Follow Up With: Abraham Aburto MD When: in 2 weeks Disposition: Home Minutes spent on discharge:: 40 Patient Condition:: Stable Medical Necessity - Tobacco Use Smoking Status: Never smoker Tobacco Use: Non-smoker Meaningful Use Info Meaningful Use Diagnoses (Choose all that apply): None applicable Code Visit Inpatient E&M: 29030 Disch Hosp
== END 2019-07-27 14:01 | disposition home or self-care (01) | DRG 309 ==
LOC: ED 14:27 → PCU 16:02
PROVIDERS: Internal Medicine Cardiovascular Disease; Admitting Provider Internal Medicine; Emergency Provider Emergency Medicine; Family Provider Internal Medicine; PCP Internal Medicine; Referring Provider Internal Medicine; Visit Provider Internal Medicine
DX: I48.0 Paroxysmal atrial fibrillation (principal); D80.1 Nonfamilial hypogammaglobulinemia; I10 Essential (primary) hypertension; E11.9 Type 2 diabetes mellitus without complications; E66.9 Obesity, unspecified; Z68.37 Body mass index [BMI] 37.0-37.9, adult; I25.10 Atherosclerotic heart disease of native coronary artery without angina pectoris; E78.5 Hyperlipidemia, unspecified; I36.1 Nonrheumatic tricuspid (valve) insufficiency; Z23 Encounter for immunization; I25.5 Ischemic cardiomyopathy; Z95.1 Presence of aortocoronary bypass graft; Z79.01 Long term (current) use of anticoagulants; G47.33 Obstructive sleep apnea (adult) (pediatric); J44.9 Chronic obstructive pulmonary disease, unspecified
CPT/HCPCS: 36415; 80048; 80053; 81001; 82962; 83605; 83735; 84443; 84484; 85025; 85610; 85730; 87040; 87086; 87088; 93005; 93306; 94640; 97802; 99285; G0008; Q9957; 90686; A4216; C8929

== ENCOUNTER → 2019-08-11 11:34 | Outpatient (CLI) | payer MEDICARE, OTHER, SELFPAY ==
[2019-08-07 11:02] VITALS: BMI 39.1
== END ==
PROVIDERS: Family Provider Internal Medicine; PCP Internal Medicine
DX: D80.1 Nonfamilial hypogammaglobulinemia (principal)
CPT/HCPCS: 36415

== ENCOUNTER → 2019-09-24 11:20 | Outpatient (CLI) | payer MEDICARE, OTHER, SELFPAY ==
[2019-08-16 15:06] VITALS: BMI 39.1
== END ==
PROVIDERS: Family Provider Internal Medicine; PCP Internal Medicine
DX: D80.1 Nonfamilial hypogammaglobulinemia (principal)
CPT/HCPCS: 36415

== ENCOUNTER → 2019-09-25 13:00 | Outpatient (CLI) | payer MEDICARE, OTHER, SELFPAY ==
[2019-08-16 15:06] VITALS: BMI 39.1
== END ==
PROVIDERS: Family Provider Internal Medicine; PCP Internal Medicine; Referring Provider Nurse Practitioner Acute Care; Visit Provider Nurse Practitioner Acute Care
DX: G47.33 Obstructive sleep apnea (adult) (pediatric) (principal)
CPT/HCPCS: 98960; G0463

== ENCOUNTER → 2020-01-24 | Outpatient (CLI) | payer MEDICARE, OTHER, SELFPAY ==
[2020-01-04 10:26] VITALS: BMI 39.1
== END | disposition home or self-care (01) ==
LOC: LABSPEC 14:28
PROVIDERS: PCP Internal Medicine; Referring Provider Nurse Practitioner Acute Care; Visit Provider Nurse Practitioner Acute Care
DX: J44.9 Chronic obstructive pulmonary disease, unspecified (principal)
CPT/HCPCS: 87070; 87077; 87186; 87205

== ENCOUNTER → 2020-02-01 11:49 | Outpatient (CLI) | payer MEDICARE, OTHER, SELFPAY ==
[2020-01-04 10:26] VITALS: BMI 39.1
--- NOTE | 2020-02-01 11:52 | EKG12_ITS ---
Test Reason : AFIB Blood Pressure : / mmHG Vent. Rate : 082 BPM Atrial Rate : 082 BPM P-R Int : 168 ms QRS Dur : 080 ms QT Int : 376 ms P-R-T Axes : 022 -07 009 degrees QTc Int : 439 ms Sinus rhythm with frequent Premature ventricular complexes Septal infarct , age undetermined Inferior infarct , age undetermined Abnormal ECG Confirmed by DAKSHA HERCULES, KATHLEEN ([id number]), mapping editor DANYA REILLY ([id number]) on 02/05/2020 2:40:37 PM Referred By: Rosaline Sheikh Confirmed By:KATHLEEN CROOKS MD
== END ==
PROVIDERS: PCP Internal Medicine; Referring Provider Nurse Practitioner Acute Care; Visit Provider Nurse Practitioner Acute Care
DX: I48.0 Paroxysmal atrial fibrillation (principal)
CPT/HCPCS: 93005

== ENCOUNTER → 2020-03-10 09:05 | Outpatient (CLI) | payer MEDICARE, OTHER, SELFPAY ==
[2020-01-04 10:26] VITALS: BMI 39.1
== END ==
PROVIDERS: PCP Internal Medicine
DX: D80.1 Nonfamilial hypogammaglobulinemia (principal)
CPT/HCPCS: 36415

== ENCOUNTER → 2020-05-30 17:11 | Outpatient (CLI) | payer MEDICARE, OTHER, SELFPAY ==
[2020-04-03 14:54] VITALS: BMI 38.5
== END ==
PROVIDERS: PCP Internal Medicine; Referring Provider Clinical Nurse Specialist; Visit Provider Clinical Nurse Specialist
DX: Z11.59 Encounter for screening for other viral diseases (principal); R05 Cough; R06.2 Wheezing; J01.80 Other acute sinusitis
CPT/HCPCS: 87635; C9803; U0003

== ENCOUNTER → 2020-08-29 12:46 | Outpatient (CLI) | payer MEDICARE, OTHER, SELFPAY ==
[2020-04-03 14:54] VITALS: BMI 38.5
== END ==
PROVIDERS: PCP Internal Medicine
DX: D80.1 Nonfamilial hypogammaglobulinemia (principal)
CPT/HCPCS: 36415

== ENCOUNTER → 2020-10-02 08:38 | Outpatient (CLI) | payer MEDICARE, OTHER, SELFPAY ==
[2020-04-03 14:54] VITALS: BMI 38.5
[2020-10-02 09:29] LABS: Absolute Lymphocyte Count 1.43 X10^3/uL (0.83-4.51); Absolute Neutrophil Count 4.4 X10^3/uL (2.0-7.7); Basophil# 0.09 X10^3/uL; Basophil% 1.3 % (0-1); Eosinophil# 0.14 X10^3/uL; Hematocrit 42.9 % (37-47); Lymphocyte # 1.43 X10^3/ul (4.0); Lymphocyte % 20.5 % (19-41); Mean Corpuscular Hgb 28.7 pg (27.0-32.0); Mean Platelet Vol. 10.5 fl (6.2-12.0); Monocyte# 0.88 X10^3/uL; Monocyte% 12.6 % (0-10); NRBC Flagged by Analyzer 0 % (0-5); Neutrophil # 4.39 X10^3/uL (2.7-7.7); Neutrophil % 63.2 % (47-70); Platelet Count 273 K/mm3 (150-450); RBC Distribution Width CV 12.3 % (11.6-14.6); RBC Distribution Width SD 37.2 fl (35.1-43.9); Red Blood Count 5.23 M/mm3 (4.2-5.4)
[2020-10-02 10:01] LABS: Free T3 2.8 pg/mL (2.18-3.98); T4 Free Direct 1.54 ng/dL (0.76-1.46); Thyroid Stim Hormone (TSH) 2.01 uIU/mL (0.358-3.74)
[2020-10-04 20:07] LABS: Cytoplasmic Ab (C-ANCA) <1:20 titer (Neg:<1:20)
[2020-10-04 20:40] LABS: Immunoglobulin E 18 IU/mL (6-495); Perinuclear Ab (P-ANCA) <1:20 titer (Neg:<1:20)
[2020-10-05 06:37] LABS: Alternaria alternata <0.10 kU/L (Class 0); Bermuda Grass <0.10 kU/L (Class 0); Bluegrass, Kentucky <0.10 kU/L (Class 0); Cat Hair/Dander, Standard <0.10 kU/L (Class 0); D farinae Mite <0.10 kU/L (Class 0); D pteronyssinus <0.10 kU/L (Class 0); Dog Epithelia <0.10 kU/L (Class 0); Elm, American White <0.10 kU/L (Class 0); Oak, White <0.10 kU/L (Class 0); Plantain, English <0.10 kU/L (Class 0); Ragweed, Short/Common <0.10 kU/L (Class 0)
[2020-10-05 07:31] LABS: Mouse Urine <0.10 kU/L (Class 0)
== END ==
PROVIDERS: Physician Assistant Medical; PCP Internal Medicine; Referring Provider Nurse Practitioner Acute Care; Visit Provider Nurse Practitioner Acute Care
DX: E03.9 Hypothyroidism, unspecified (principal); J45.909 Unspecified asthma, uncomplicated; I10 Essential (primary) hypertension
CPT/HCPCS: 36415; 82785; 84439; 84443; 84481; 85025; 86003; 86256; 87070; 87205

== ENCOUNTER → 2020-11-18 10:39 | Outpatient (CLI) | payer MEDICARE, OTHER, SELFPAY ==
[2020-04-03 14:54] VITALS: BMI 38.5
== END ==
PROVIDERS: PCP Internal Medicine
DX: D80.1 Nonfamilial hypogammaglobulinemia (principal)
CPT/HCPCS: 36415

== ENCOUNTER → 2020-12-11 12:59 | Outpatient (CLI) | payer MEDICARE, OTHER, SELFPAY ==
[2020-04-03 14:54] VITALS: BMI 38.5
[2020-12-11 13:30] LABS: Hematocrit 44.8 % (37-47); Hemoglobin 15.1 g/dL (12.0-15.0); Mean Corp Hgb Conc 33.7 g/dL (32-36); Mean Corpuscular Hgb 27.9 pg (27.0-32.0); Mean Corpuscular Volume 82.8 fL (81-99); Mean Platelet Vol. 10.2 fl (6.2-12.0); Platelet Count 284 K/mm3 (150-450); RBC Distribution Width CV 12.9 % (11.6-14.6); RBC Distribution Width SD 38.6 fl (35.1-43.9); Red Blood Count 5.41 M/mm3 (4.2-5.4); White Blood Count 8.3 K/mm3 (4.4-11.0)
--- NOTE | 2020-12-11 13:35 | RAD_ITS ---
STUDY: X-RAY CHEST REASON FOR EXAM: Female, 75 years old. Shortness of breath TECHNIQUE: PA and lateral views of the chest. COMPARISON: Comparison is made with prior study 12/18/2017. FINDINGS: Mild increased linear markings at the lung bases suggestive of linear scarring. Blunting of both cosmetic angles. Sternal cerclage wires and vascular clips are present from a prior sternotomy and coronary artery bypass graft procedure (CABG). Mild cardiomegaly. Normal mediastinum and mariam. Normal visualized pulmonary arteries. There is atherosclerotic calcification of the aortic arch with tortuosity. There is demineralization of the osseous structures. Increased kyphosis. Normal visualized ribs, clavicles, and shoulders. There is no demonstrated abnormality of the visualized soft tissue structures of the upper abdomen. RAD/Chest PA and Lateral IMPRESSION: Mild degree of increased markings at the lung bases suggestive of bibasilar scarring. Blunting of both costo phrenic angles. Electronically Signed: Casimiro Carty MD at 13:29 EDT , Service support ,
[2020-12-11 13:54] LABS: BNP,B-Type NATRIURETIC PEPTIDE 127.3 pg/mL (0-100)
[2020-12-11 14:09] LABS: Anion Gap 8 (5-15); BUN 13 mg/dL (7-18); BUN/Creat Ratio 18.7 RATIO (10-20); Calcium,Total 9.3 mg/dL (8.5-10.1); Chloride 104 mmol/L (98-107); Creatinine, Serum 0.69 mg/dL (0.55-1.02); EST Glomerular Filtration Rate 87 mL/min (>60); Est Glom Filt Rate - Afr Amer 106 mL/min (>60); Glucose 177 mg/dL (74-106); Potassium 4.1 mmol/L (3.5-5.1); Sodium Level 139 mmol/L (136-145); Thyroid Stim Hormone (TSH) 1.69 uIU/mL (0.358-3.74)
== END ==
PROVIDERS: PCP Internal Medicine; Referring Provider Physician Assistant Medical; Visit Provider Physician Assistant Medical
DX: J44.9 Chronic obstructive pulmonary disease, unspecified (principal); I25.10 Atherosclerotic heart disease of native coronary artery without angina pectoris; R06.02 Shortness of breath; I25.5 Ischemic cardiomyopathy; J98.4 Other disorders of lung; R53.83 Other fatigue; E87.6 Hypokalemia; E03.9 Hypothyroidism, unspecified
CPT/HCPCS: 36415; 71046; 80048; 83880; 84443; 85027

== ENCOUNTER 2021-03-31 10:00 | Outpatient (RCR) | payer MEDICARE, OTHER, SELFPAY ==
[2020-12-24 08:29] VITALS: BMI 39.2
--- NOTE | 2021-02-23 11:25 | HP.PTEVAL ---
Patient's Visit Information ANTIONETTE VELIZ is a 75 year old F referred to Physical Therapy by Dr. Christi Oswald MD with a diagnosis of LUMBAR STRAIN. Date of Evaluation: 02/23/21 Physical Therapist: Mahin Doyle, PT, Cert MDT, [facility] - Visit Plan Frequency: 2x /Week Duration: 4 Weeks Plan: PT INTERVETIONS POSTURAL EX'S,DLS,MODALTIES AND LE STRENGTHENING - Subjective This 75 y/o female presents to physical therapy with lumbar sprain. Patient has had back since January did a lot walking. Patient pain located right side buttuck. Seen recommended PT. Patient pain is described as a sharp pain. Aggravating bending, lifting, walking and standing. Alleviating factors naproysn. Bowel/bladder -. No abnormal night pain. Patient pain affects sleeping. Denies parathesia/tingling. Patient has had prior PT in past. Patient had no diagnostics. Patient pain affects ADLS' and housework tasks. Patient goals decrease pain. Patient condition affects QOL. SOCIAL: . VOVATION: retired - Pain Right Back Pain Intensity (Out of 10): 3 Pain Intensity Range: 10 - Objective POSTURE: mild forward posture.mod kyphosis. NEURO: denies parathesia/tingling,reflexes L3-4,L4-,L5-S1 1/3. GAIT: reciprocal pattern antalgic gait slow joseline. SYMMTRIES: align. PALPATION: tender LS region. LUMBAR ROM: flexion mod loss pain right side, extension severe loss, side glides mod loss pain right. MMT: quads/hams4-/5,hip flexion 3+/5,ankle 4/5. FLEXABLITY: hams mild tight - Special Tests L/S Slump test left side: Negative L/S Slump test right side: Positive L/S Left Straight Leg Raise: Negative L/S Right Straight Leg Raise: Negative Lumbar Standing: Flexion - Mechanical Response: No effect Lumbar Standing: Flexion - Symptoms During Testing: Increases Lumbar Standing: Flexion - Symptoms After Testing: Worse Lumbar Standing: Extension - Mechanical Response: No effect Lumbar Standing: Extension - Symptoms During Testing: Increases Lumbar Standing: Extension - Symptoms After Testing: Worse Lumbar Standing: Right Side Glides - Mechanical Response: No effect Lumbar Standing: Right Side [place] - Symptoms During Testing: Increases Lumbar Standing: Left Side [place] - Mechanical Response: No effect Lumbar Standing: Left Side [place] - Symptoms During Testing: No effect Lumbar Standing: Left Side [place] - Symptoms After Testing: No effect - Goals Goal 1:: Patient to be I with HEP Goal Time Frame: 4-6 Weeks Goal 2:: Patient to improve posture for ADL;S Goal Time Frame: 4-6 Weeks Goal 3:: Patient to decrease lumbar pain right side by 50% or > to improve function Goal Time Frame: 4-6 Weeks Goal 4:: Patient to improve lumbar ROM for function of recovery Goal Time Frame: 4-6 Weeks Goal 5:: Patient to improve back owestrety score by 5 points > to improve QOL Goal Time Frame: 4-6 Weeks Goal 6:: Patient to improve strength quads/hams 4/5,hip 4-/5 to improve gait. Goal Time Frame: 4-6 Weeks - Rehabilitation Potential Physical Therapy Diagnosis: This 75 y/o female presents with right lumbar pain with possible lateral stenosis with pain with test movements ,activity with walking and standing affects ADLS' and housework tasks thus benefit from skilled PT Rehabilitation Potential: Good - Anticipated Interventions Patient/Client Instruction: Educate patient on: Condition, Plan of Care For the Purpose of:: To decrease pain, To increase ROM, To improve muscle performance and motor function, To improve ability to perform ADL's, To increase tolerance to activity/condition/position, To improve performance and independence with ADL's, To improve ability of physical actions for home/community/work/leisure, To improve health of tissue, To decrease soft tissue restriction, To increase flexibility/ROM, To reduce risk of recurrence, To improve ability to perform tasks related to life management Therapeutic Exercise to Include: Strength training, Body mechanics, Postural training, Flexibilty training, Dynamic Lumbar Stabilization, Scapular Strength/Stabilization For the Purpose of:: To decrease pain, To increase ROM, To improve muscle performance and motor function, To improve performance and independence with ADL's, To improve ability of physical actions for home/community/work/leisure, To decrease soft tissue restriction, To increase flexibility/ROM, To reduce risk of recurrence, To improve health and function, To improve ability to perform tasks related to life management, To improve tolerance to ADL's TENS: Yes IF ES: Yes Cryotherapy (ice pack, ice massage): Yes Thermo therapy (hot pack): Yes Ultrasound (thermal/non thermal): Yes For the Purpose of:: To increase ROM, To improve health of tissue, To decrease soft tissue restriction Thank you for the opportunity to evaluate your patient. For Medicare and Medicare HMO plans, please review the plan of care and approve it. It will need to be FAXED BACK to us at [phone] for Medicare purposes. For Medicare only, by signing this I certify the plan of care. Please let me know if there are questions or concerns regarding this plan of care. Physician Signature: Date:
--- NOTE | 2021-03-31 10:26 | HP.PTDCSUM_ITS ---
It has been my pleasure to treat ANTIONETTE VELIZ referred by Dr. Christi Oswald MD, with the diagnosis of LUMBAR STRAIN for a total of 8 visit(s). Discharge Date: 03/31/21 Please see the following information for a summary of their discharge status. Subjective: I feel im walking more straighter,and stronger Right Back Pain Intensity (Out of 10): 0 Objective/Function: POSTURE: mild/mod thoracic kyphosis. GAIT: reciprocal pattern forward posture. MMT: quads/hams 4/5,hip flexion 4-/5,ankle. LUMBAR R OM: flexion min loss, extension mod loss,side glides Goal 1:: Patient to be I with HEP Goal Progress: Goal Met Goal 2:: Patient to improve posture for ADL;S Goal Progress: Goal Met Goal 3:: Patient to decrease lumbar pain right side by 50% or > to improve function Goal Progress: Goal Met Goal 4:: Patient to improve lumbar ROM for function of recovery Goal 5:: Patient to improve back owestrety score by 5 points > to improve QOL Goal Progress: Goal Met Goal 6:: Patient to improve strength quads/hams 4/5,hip 4-/5 to improve gait. Goal Progress: Goal Met Plan: D/C TO HEP Discharge Comments: hep.and HP If there are questions or concerns regarding this patient's physical therapy, please feel free to call me at [phone]. Thank you for the referral of this patient. Sincerely, Mahin Doyle, PT, Cert MDT, OCS
== END 2021-03-31 19:00 | disposition home or self-care (01) ==
LOC: PT 10:00
PROVIDERS: PCP Internal Medicine; Referring Provider Internal Medicine; Visit Provider Internal Medicine
DX: S33.5XXD Sprain of ligaments of lumbar spine, subsequent encounter (principal); X58.XXXD Exposure to other specified factors, subsequent encounter
CPT/HCPCS: 97110; 97162

== ENCOUNTER 2021-06-05 06:10 | Inpatient (IN) | payer MEDICARE, OTHER, SELFPAY ==
[2021-06-05] VITALS (10 sets, daily range): BP systolic 115–162; BP diastolic 72–98; PULSE 65–80; RESP 18–27; TEMP 35.8–37.7; O2SAT 91–96; BMI 39.2
--- NOTE | 2021-06-05 06:38 | RAD_ITS ---
STUDY: X-RAY CHEST REASON FOR EXAM: Female, 75 years old. CHEST PAIN sob TECHNIQUE: XR Chest 1 View COMPARISON: 4.1 FINDINGS: There are bilateral pleural effusions. There are bilateral infiltrates. There are multiple median sternotomy wires. Median sternotomy plate are visualized . Cardiac monitoring leads or electronic device noted. There is mild cardiac enlargement. Normal mediastinum and mariam. Normal visualized pulmonary arteries. There is atherosclerotic calcification of the aortic arch with tortuosity. There are diffuse degenerative changes of the visualized thoracic spine. There is degenerative osteoarthritis of the bilateral shoulders. There is no demonstrated abnormality of the visualized soft tissue structures of the upper abdomen. RAD/Chest 1 View (Portable) IMPRESSION: Pulmonary findings appear worse. Electronically Signed: Min Long MD at 7:59 EDT , Service support ,
--- NOTE | 2021-06-05 06:38 | EKG12_ITS ---
Test Reason : SOB Blood Pressure : / mmHG Vent. Rate : 070 BPM Atrial Rate : 070 BPM P-R Int : 164 ms QRS Dur : 096 ms QT Int : 430 ms P-R-T Axes : 046 -03 051 degrees QTc Int : 464 ms Sinus rhythm with occasional Premature ventricular complexes Septal [place], age undetermined, cannot be excluded Confirmed by MARGARITA HERCULES, SHON ([id number]), managing editor SILVER TEJADA ([id number]) on 06/08/2021 1:18:50 PM Referred By: NEIL Confirmed By:SHON AVILA MD
[2021-06-05 06:50] LABS: Absolute Lymphocyte Count 0.87 X10^3/uL (0.83-4.51); Absolute Neutrophil Count 6.7 X10^3/uL (2.0-7.7); Basophil# 0.02 X10^3/uL; Basophil% 0.2 % (0-1); Hematocrit 43.5 % (37-47); Hemoglobin 14.8 g/dL (12.0-15.0); Lymphocyte # 0.87 X10^3/ul (0.83-4.51); Lymphocyte % 10.6 % (19-41); Mean Corpuscular Hgb 28.4 pg (27.0-32.0); Mean Corpuscular Volume 83.5 fL (81-99); Mean Platelet Vol. 11.1 fl (6.2-12.0); Monocyte# 0.59 X10^3/uL; Monocyte% 7.2 % (0-10); NRBC Flagged by Analyzer 0 % (0-5); Neutrophil # 6.71 X10^3/uL (2.7-7.7); Neutrophil % 81.4 % (47-70); Platelet Count 216 K/mm3 (150-450); RBC Distribution Width CV 12.5 % (11.6-14.6); RBC Distribution Width SD 38.5 fl (35.1-43.9); Red Blood Count 5.21 M/mm3 (4.2-5.4); White Blood Count 8.2 K/mm3 (4.4-11.0)
[2021-06-05] MEDS: Ipratropium/Albuterol Sulfate 3 ML AMPUL.NEB INHALATION (06:57)
[2021-06-05] MEDS: MethylPREDNISolone 125 MG/2 ML Vial IV (07:03)
[2021-06-05 07:05] LABS: Anion Gap 7 (5-15); BUN 16 mg/dL (7-18); BUN/Creat Ratio 22.4 RATIO (10-20); Calcium,Total 8.4 mg/dL (8.5-10.1); Chloride 101 mmol/L (98-107); Creatinine, Serum 0.71 mg/dL (0.55-1.02); EST Glomerular Filtration Rate 84 mL/min (>60); Est Glom Filt Rate - Afr Amer 102 mL/min (>60); Estimated Creatinine Clearance 36.12 ml/min; Glucose 180 mg/dL (74-106); Potassium 3.1 mmol/L (3.5-5.1); Sodium Level 136 mmol/L (136-145); Troponin-I HS 13 pg/mL (3.0-54.0)
[2021-06-05] MEDS: Albuterol 2.5 MG/3 ML VIAL.NEB. INHALATION ×4 (07:26→20:00)
--- NOTE | 2021-06-05 08:23 | EX.ED.DYSGE1 ---
HPI History of Present Illness Chief Complaint: Shortness of Breath Informant: patient Onset/Context/Timing Onset: Days Context: Gradual Onset Current Severity: Mild Maximum Severity: Moderate Narrative Narrative: Patient presents secondary to increased shortness of breath. Patient developed symptoms last weekend of increasing shortness of breath and wheezing. Today she feels like her chest is tight. Patient reports having a immune deficiency that makes her prone to picking up illnesses. Her cutting table operator first had given her a prescription for antibiotic and steroid to have at home. She states she started taking this 3 days ago and did call her doctor to notify him. Patient reports a history of asthma and sleep apnea. Although COPD is listed in her medical history she denies any known diagnosis of COPD. [facility] Medical History (Updated 06/05/21 @ 08:[address] Angie Staples MD) Asthma Atherosclerotic heart disease of [place] coronary artery without angina pectoris CAD (coronary artery disease) COPD (chronic obstructive pulmonary disease) DM type 2 (diabetes mellitus, type 2) Essential hypertension HLD (hyperlipidemia) Hypogammaglobulinemia Hypothyroidism due to medicaments and other exogenous substances Ischemic cardiomyopathy Migraines Morbid obesity Nonrheumatic tricuspid valve regurgitation BARTOLO (obstructive sleep apnea) Paroxysmal atrial fibrillation Restrictive lung disease Vertigo Home Medications fluticasone propionate 50 mcg/actuation nasal spray,suspension 2 spray INTRANASAL DAILY 04/10/18 [History Last Taken 07/23/19] acetaminophen 650 mg PO Q6H PRN PRN tab 07/27/19 [Rx Last Taken Unknown] Handicap Placcard #1 ea 08/07/19 [Rx Last Taken Unknown] gabapentin 100 mg capsule 100 mg PO BID PRN 12/18/19 [History Last Taken Unknown] rizatriptan 10 mg tablet See Rx Instructions PO .COMPLEX 12/18/19 [History Last Taken Unknown] miconazole nitrate 2 % topical powder 1 applic TOPICAL BID #90 g 01/04/20 [Rx Last Taken Unknown] potassium chloride 20 mEq tablet,extended release(part/cryst) 20 meq PO TID #270 tab 04/03/20 [Rx Last Taken Unknown] ezetimibe 10 mg tablet 10 mg PO DAILY tab 04/14/20 [History Last Taken Unknown] dofetilide 125 mcg capsule 125 mcg PO Q12 #180 cap 08/19/20 [Rx Last Taken Unknown] carvedilol 12.5 mg tablet 12.5 mg PO BID #180 tab 09/17/20 [Rx Last Taken Unknown] levothyroxine 50 mcg tablet 50 mcg PO DAILY #90 tab 10/01/20 [Rx Last Taken Unknown] montelukast 10 mg tablet 10 mg PO DAILY #30 tab 10/01/20 [Rx Last Taken Unknown] nitroglycerin 0.4 mg sublingual tablet 0.4 mg SUBLINGUAL Q5M PRN #25 tab 10/01/20 [Rx Last Taken Unknown] Symbicort 160 mcg-4.5 mcg/actuation HFA aerosol inhaler 2 puff INHALATION BID #10.2 gm NS 12/10/20 [Rx Last Taken Unknown] levalbuterol HCl 0.63 mg/3 mL solution for nebulization 0.63 mg INHALATION Q4H PRN #120 vial 12/24/20 [Rx Last Taken Unknown] apixaban 5 mg tablet 5 mg PO BID #180 tab 02/13/21 [Rx Last Taken Unknown] furosemide 40 mg tablet 40 mg PO DAILY #90 tab 03/04/21 [Rx Last Taken Unknown] albuterol sulfate 90 mcg/actuation aerosol inhaler 2 puff INHALATION Q6H PRN #18 gm 04/17/21 [Rx Last Taken Unknown] Allergy/AdvReac Type Severity Reaction Status Date / Time red dye Allergy Intermediate Unknown Verified 06/05/21 06:18 Beta-Blockers Allergy Shortness Verified 06/05/21 06:18 (Beta-Adrenergic Bloc of breath doxycycline Allergy Hives Verified 06/05/21 06:18 Penicillins Allergy Rash Verified 06/05/21 06:18 Sulfa (Sulfonamide Allergy Rash Verified 06/05/21 06:18 Antibiotics) theophylline Allergy Rash Verified 06/05/21 06:18 codeine AdvReac Nausea Verified 06/05/21 06:18 Family History Father CAD (coronary artery disease) Surgical History History of cataract surgery History of cholecystectomy History of coronary artery bypass graft x 3 History of eye surgery History of hysterectomy Social History Smoking Status: Never smoker second hand exposure: No alcohol intake: never substance use type: does not use caffeine: Yes Type: coffee what type of physical activity do you participate in: walking and running frequency: 3-4 times per week ROS ROS ED Constitutional Constitutional ED: Denies chills or fever(s) Eyes Eyes: Denies change in vision ENT ENT ED: Denies sore throat Cardiovascular Cardiovascular: Reports chest pain Respiratory/Chest Respiratory/Chest: Reports cough and dyspnea Gastrointestinal Gastrointestinal: Denies abdominal pain, diarrhea, nausea or vomiting Genitourinary Genitourinary ED: Denies dysuria Musculoskeletal Musculoskeletal: Denies back pain Integumentary Denies rash Neurologic Neurologic: Reports weakness; Denies headache(s) Allergic/Immunologic Allergic/Immunologic ED: Denies urticaria EXAM Physical Exam Const Vital Signs: 06/05/21 06:11 06/05/21 06:18 06/05/21 06:57 Temperature 99.8 F H Temperature Source Oral Pulse Rate 80 75 Respiratory Rate 20 H 20 H Respiratory Effort Short of Breath Short of Breath Respiratory Pattern Tachypnea Blood Pressure 145/98 H Blood Pressure Mean 113 Pulse Ox 91 94 Oxygen Delivery Method Room Air Room Air Nasal Cannula Oxygen Flow Rate (L/min) 3 Positive well nourished and well developed General Appearance ED: well developed HEENT Reports normocephalic and head/scalp atraumatic Eyes PERRL and EOMs intact bilaterally Neck supple Chest Wall inspection of chest normal and palpation of chest normal Resp normal respiratory effort Auscultation: wheezes expiratory wheezes Cardio regular rate and regular rhythm GI normal to inspection, nondistended, normoactive bowel sounds and non-tender Palpation: soft Extremity normal to inspection Neuro oriented x3 and no sensory deficits noted Sensorium / Orientation: alert Motor Exam: strength 5/5 throughout Psych mental status grossly normal Skin no rashes or lesions noted MDM MDM MDM Narrative Medical decision making narrative: Patient was given aerosol treatments. She was given a dose of IV Solu-Medrol. Lab work, chest x-ray, EKG, Covid test obtained. Lab Data Attestation: I reviewed the patient's lab results. Labs: Laboratory Results - last 24 hr 06/05/21 06/05/21 05:49 05:49 WBC 8.2 RBC 5.21 Hgb 14.8 Hct 43.5 MCV 83.5 MCH 28.4 MCHC 34.0 RDW Std Deviation 38.5 RDW Coeff of Keshia 12.5 Plt Count 216 MPV 11.1 Immature Gran % (Auto) 0.600 Neut % (Auto) 81.4 H Lymph % (Auto) 10.6 L [place] % (Auto) 7.2 Eos % (Auto) 0.0 Baso % (Auto) 0.2 Absolute Neuts (auto) 6.7 Absolute Lymphs (auto) 0.87 Nucleated RBC % 0 Sodium 136 Potassium 3.1 L Chloride 101 Carbon Dioxide 28.0 Anion Gap 7 BUN 16 Creatinine 0.71 Estim Creat Clear Calc 36.12 Est GFR (MDRD) Af Amer 102 Est GFR (MDRD) Non-Af 84 BUN/Creatinine Ratio 22.4 H Glucose 180 H Calcium 8.4 L Troponin I High Sens 13 Radiography Chest X-Ray - ED: 1 View, Read by ED Physician and Chronic Changes Diagnostic Testing: Radiology Impression Chest X-Ray 06/05/21 06:38 IMPRESSION: Pulmonary findings appear worse. Electronically Signed: Min Long MD at 7:59 EDT , Service support , EKG Initial EKG: Attestation: I personally reviewed and interpreted this EKG as follows: Interpretation: Sinus Rhythm (Sinus at 70 with occasional PVCs. No acute ischemia.) Treatment and Re-Evaluation Comments:: Repeat evaluation patient has some continued wheezes but it is improved. While sitting at rest in bed nursing staff had told me that her oxygen saturation dropped to 87%. She was placed on 2 L. Test results discussed with her. Blood work is largely unremarkable. Chest x-ray reveals chronic changes with atelectasis noted on the right. Patient is already on Eliquis and I do not not believe she has a PE. Patient would be in the window to be treated with remdesivir. I will speak with hospitalist regarding admission. Discharge Plan Triage Chief Complaint: Shortness of Breath ED Provider: Angie Staples Dx/Rx/DC Orders Clinical Impression: COVID-19 Prescriptions: No Action fluticasone propionate [Allergy Relief (fluticasone)] 50 mcg/actuation spray,suspension 2 spray INTRANASAL DAILY RF: 0 (DME) Handicap Placcard Qty: 1 RF: 0 rizatriptan 10 mg tablet See Rx Instructions PO .COMPLEX RF: 0 gabapentin 100 mg capsule 100 mg PO BID PRNRF: 0 potassium chloride 20 mEq tablet,ER particles/crystals 20 meq PO TID Qty: 270 RF: 3 miconazole nitrate 2 % powder 1 applic TOPICAL BID Qty: 90 RF: 0 montelukast 10 mg tablet 10 mg PO DAILY Qty: 30 RF: 6 levothyroxine 50 mcg tablet 50 mcg PO DAILY Qty: 90 RF: 3 nitroglycerin 0.4 mg tablet, sublingual 0.4 mg sublingual Q5M PRN (Reason: Cardiac/Chest Pain) Qty: 25 RF: 3 levalbuterol HCl 0.63 mg/3 mL solution for nebulization 0.63 mg INHALATION Q4H PRN (Reason: Asthma J45.909) Qty: 120 RF: 6 acetaminophen 325 MG tablet 650 mg PO Q6H PRN PRN (Reason: Pain Score 1-3/Temp > 100.7 F) RF: 0 ezetimibe 10 mg tablet 10 mg PO DAILY RF: 0 dofetilide 125 mcg capsule 125 mcg PO Q12 Qty: 180 RF: 3 carvedilol 12.5 mg tablet 12.5 mg PO BID Qty: 180 RF: 3 budesonide-formoterol [Symbicort] 160-4.5 mcg/actuation HFA aerosol inhaler 2 puff INHALATION BID Qty: 10.2 RF: 6 apixaban 5 mg tablet 5 mg PO BID Qty: 180 RF: 0 furosemide 40 mg tablet 40 mg PO DAILY Qty: 90 RF: 3 albuterol sulfate [Ventolin HFA] 90 mcg/actuation HFA aerosol inhaler 2 puff INHALATION Q6H PRN (Reason: shortness of breath or wheezing) Qty: 18 RF: 3 Primary Care Provider: Christi Oswald Referrals: Christi Oswald MD [Primary Care Provider] - Disposition Disposition: Acute Care Hospital [facility]
--- NOTE | 2021-06-05 09:02 | PCM.HP.STD ---
HPI - General General Date of Admission: 06/05/21 Date of Service: 06/05/21 Chief Complaint: Shortness of breath HPI Narrative ANTIONETTE VELIZ, is a 75 F who is vaccinated against COVID-19, with past medical history segment for chronic lung disease who presented with shortness of breath. Patient symptoms started about 5 days prior to his admission. Patient reports recent travel outside the state. Was apparently in [place]. Presented to the emergency department in view of worsening symptoms. X-ray obtained on admission demonstrated bilateral pleural effusion as well as bilateral infiltrate. Her rapid COVID-19 assay came back positive. Placed on supplemental oxygen admitted to regular nursing floor for further management [facility] Medical History (Updated 06/05/21 @ 08:[address] Angie Staples MD) Asthma Atherosclerotic heart disease of [place] coronary artery without angina pectoris CAD (coronary artery disease) COPD (chronic obstructive pulmonary disease) DM type 2 (diabetes mellitus, type 2) Essential hypertension HLD (hyperlipidemia) Hypogammaglobulinemia Hypothyroidism due to medicaments and other exogenous substances Ischemic cardiomyopathy Migraines Morbid obesity Nonrheumatic tricuspid valve regurgitation BARTOLO (obstructive sleep apnea) Paroxysmal atrial fibrillation Restrictive lung disease Vertigo Home Medications fluticasone propionate 50 mcg/actuation nasal spray,suspension 2 spray INTRANASAL DAILY 04/10/18 [History Last Taken 07/23/19] acetaminophen 650 mg PO Q6H PRN PRN tab 07/27/19 [Rx Last Taken Unknown] Handicap Placcard #1 ea 08/07/19 [Rx Last Taken Unknown] gabapentin 100 mg capsule 100 mg PO BID PRN 12/18/19 [History Last Taken Unknown] rizatriptan 10 mg tablet See Rx Instructions PO .COMPLEX 12/18/19 [History Last Taken Unknown] miconazole nitrate 2 % topical powder 1 applic TOPICAL BID #90 g 01/04/20 [Rx Last Taken Unknown] potassium chloride 20 mEq tablet,extended release(part/cryst) 20 meq PO TID #270 tab 04/03/20 [Rx Last Taken Unknown] ezetimibe 10 mg tablet 10 mg PO DAILY tab 04/14/20 [History Last Taken Unknown] dofetilide 125 mcg capsule 125 mcg PO Q12 #180 cap 08/19/20 [Rx Last Taken Unknown] carvedilol 12.5 mg tablet 12.5 mg PO BID #180 tab 09/17/20 [Rx Last Taken Unknown] levothyroxine 50 mcg tablet 50 mcg PO DAILY #90 tab 10/01/20 [Rx Last Taken Unknown] montelukast 10 mg tablet 10 mg PO DAILY #30 tab 10/01/20 [Rx Last Taken Unknown] nitroglycerin 0.4 mg sublingual tablet 0.4 mg SUBLINGUAL Q5M PRN #25 tab 10/01/20 [Rx Last Taken Unknown] Symbicort 160 mcg-4.5 mcg/actuation HFA aerosol inhaler 2 puff INHALATION BID #10.2 gm NS 12/10/20 [Rx Last Taken Unknown] levalbuterol HCl 0.63 mg/3 mL solution for nebulization 0.63 mg INHALATION Q4H PRN #120 vial 12/24/20 [Rx Last Taken Unknown] apixaban 5 mg tablet 5 mg PO BID #180 tab 02/13/21 [Rx Last Taken Unknown] furosemide 40 mg tablet 40 mg PO DAILY #90 tab 03/04/21 [Rx Last Taken Unknown] albuterol sulfate 90 mcg/actuation aerosol inhaler 2 puff INHALATION Q6H PRN #18 gm 04/17/21 [Rx Last Taken Unknown] Allergy/AdvReac Type Severity Reaction Status Date / Time red dye Allergy Intermediate Unknown Verified 06/05/21 06:18 Beta-Blockers Allergy Shortness Verified 06/05/21 06:18 (Beta-Adrenergic Bloc of breath doxycycline Allergy Hives Verified 06/05/21 06:18 Penicillins Allergy Rash Verified 06/05/21 06:18 Sulfa (Sulfonamide Allergy Rash Verified 06/05/21 06:18 Antibiotics) theophylline Allergy Rash Verified 06/05/21 06:18 codeine AdvReac Nausea Verified 06/05/21 06:18 Family History Father CAD (coronary artery disease) Surgical History History of cataract surgery History of cholecystectomy History of coronary artery bypass graft x 3 History of eye surgery History of hysterectomy Social History Smoking Status: Never smoker second hand exposure: No alcohol intake: never substance use type: does not use caffeine: Yes Type: coffee what type of physical activity do you participate in: walking and running frequency: 3-4 times per week ROS ROS Narrative GENERAL: denies fever, chills, night sweats, HEENT: denies headache, sinus congestion, RESPIRATORY: cough, sputum production, shortness of breath, dyspnea on exertion CARDIAC: denies chest pain, palpitations, orthopnea, PND GASTROINTESTINAL: denies abdominal pain, nausea, vomiting, melena, GENITOURINARY: denies dysuria, urgency, frequency, EXTREMITY: denies swelling MUSCULOSKELETAL: denies current joint pain or tenderness NEUROLOGIC: denies focal numbness, weakness, tingling HEMATOLOGIC: denies easy bruising and/or hemorrhage INTEGUMENT: denies rashes PSYCHIATRIC: denies suicidal or homicidal ideation Vital Signs Vital Signs Vital Signs: 06/05/21 06:11 06/05/21 06:18 06/05/21 06:57 Temperature 99.8 F H Temperature Source Oral Pulse Rate 80 75 Respiratory Rate 20 H 20 H Respiratory Effort Short of Breath Short of Breath Respiratory Pattern Tachypnea Blood Pressure 145/98 H Blood Pressure Mean 113 Pulse Ox 91 94 Oxygen Delivery Method Room Air Room Air Nasal Cannula Oxygen Flow Rate (L/min) 3 Weight Weight: 94.3 kg Body Mass Index (BMI) 39.2 Physical Exam Narrative GENERAL: cooperative but appears ill looking HEENT: Atraumatic; EYES; Anicteric, Normal Conjunctiva NECK; supple, normal thyroid, RESPIRATORY: Diminished to auscultation CARDIOVASCULAR: Regular S1 S2, GI: soft, normoactive bowel sounds, : No Renal angle tenderness; EXTREMITIES: No edema, no clubbing, MUSCULOSKELETAL: no muscle waisting NEURO: Awake; no lateralizing signs. SKIN: No Rash PSYCH; Flat affect Results Lab / Micro Data Result Diagrams: 06/05/21 05:49 06/05/21 05:49 Labs: Laboratory Results - last 24 hr 06/05/21 05:49: WBC 8.2, RBC 5.21, Hgb 14.8, Hct 43.5, MCV 83.5, MCH 28.4, MCHC 34.0, RDW Std Deviation 38.5, RDW Coeff of Keshia 12.5, Plt Count 216, MPV 11.1, Immature Gran % (Auto) 0.600, Neut % (Auto) 81.4 H, Lymph % (Auto) 10.6 L, [place] % (Auto) 7.2, Eos % (Auto) 0.0, Baso % (Auto) 0.2, Absolute Neuts (auto) 6.7, Absolute Lymphs (auto) 0.87, Nucleated RBC % 0 06/05/21 05:49: Sodium 136, Potassium 3.1 L, Chloride 101, Carbon Dioxide 28.0, Anion Gap 7, BUN 16, Creatinine 0.71, Estim Creat Clear Calc 36.12, Est GFR (MDRD) Af Amer 102, Est GFR (MDRD) Non-Af 84, BUN/Creatinine Ratio 22.4 H, Glucose 180 H, Calcium 8.4 L, Troponin I High Sens 13 Micro: Microbiology 06/05/21 06:46 Nasal Secretion SARS-CoV-2 Antigen (Rapid) - Final SARS-CoV-2 (COVID 19) Radiology Impression Chest X-Ray 06/05/21 06:38 IMPRESSION: Pulmonary findings appear worse. Electronically Signed: Min Long MD at 7:59 EDT , Service support , Assessment & Plan Assessment/Plan (1) COVID-19: PLAN: Patient is a 75-year-old lady admitted with shortness of breath 1. Acute hypoxic respiratory insufficiency secondary to SARS-CoV-2 pneumonia ?Patient has been admitted to regular nursing floor currently managed with supplemental oxygen titrated to keep saturation greater than 90. Patient was also placed on Decadron and remdesivir. Patient progress being monitored with q. OD markers of inflammation 2. Hypertension - Blood pressure controlled, home medications continued with dose adjustment as needed 3. Hypothyroidism - Patient is on levothyroxine home dose continued 4. Paroxysmal atrial fibrillation ?Patient is on Tikosyn as well as beta-blockers. On systemic anticoagulation with apixaban 5. Obesity with BMI of 39.3 ?Weight loss advised 6. COPD ?Currently not in exacerbation aerosol treatments as needed did continue patient aerosol treatment including albuterol as needed as well as Symbicort 6. Hypogammaglobinemia ?Complicating patient's care. Patient apparently follows up with immunology as outpatient 8. Obstructive sleep apnea ?CPAP at night 9. Dyslipidemia ?Patient is on Zetia 10 mg daily did continue 10. DVT prophylaxis ?Patient is on apixaban no need for additional measures Advance planning; did discuss with the patient regarding advanced directives as well as CODE STATUS. Did explain the various scenarios involved ( FULL CODE, DNR CCA, DNR CCA with no intubation, and DNR CC and what each meant) Per patient's documentation he had previously elected to be DNR CC a however upon discussion this time she elected for full code. Patient elected to be DNR CCA no intubation. Order was placed. Time spent on discussion 18 minutes. Charges/Coding Visit Charges Inpatient E&M: 28832 Init Hosp L3 Procedures Hospitalists Procedures: 36157 Advncd Care Plan 30 Min
[2021-06-05 09:32] LABS: Alkaline Phosphatase 81 U/L (45-117); CPK Total, Creatine Kinase 54 U/L (26-192); LDH 215 U/L (84-246)
[2021-06-05 10:03] LABS: D-Dimer Quantitative (DVT/PE) 0.37 FEU/ug/m (0.27-0.49)
[2021-06-05 10:07] LABS: Procalcitonin 0.15 ng/mL (0.00-0.09)
[2021-06-05 10:10] LABS: Fibrinogen 475 mg/dl (203-444)
[2021-06-05] MEDS: 0.9% Saline Lock 10 ML Syringe IV (11:23)
[2021-06-05] MEDS: Potassium Chloride Oral Tablet 20 MEQ PO ×2 (11:27→17:31)
[2021-06-05] MEDS: dexAMETHasone 4 MG Tablet 6 MG PO (11:27)
--- NOTE | 2021-06-05 19:26 | PCS.PANDOC ---
PANDEMIC DOCUMENTATION INITIATED: Date: 06/05/2021 Time:
[2021-06-05] MEDS: Budesonide Respules 0.5 MG/2 ML AMPUL.NEB. INHALATION (20:00)
[2021-06-05] MEDS: guaiFENesin 10 ML UDC (200MG/10ML) 20 ML PO (20:56)
[2021-06-05] MEDS: Carvedilol 12.5 MG Tablet PO (20:56)
[2021-06-05] MEDS: Gabapentin 100 MG Capsule PO (20:56)
[2021-06-05] MEDS: Dofetilide 125 MCG Capsule PO (20:56)
[2021-06-05] MEDS: MELATONIN 3 MG TABLET PO (20:56)
[2021-06-05] MEDS: Acetaminophen 325 MG Tablet 650 MG PO (20:56)
[2021-06-05] MEDS: APIXABAN 5 MG TABLET PO (20:57)
[2021-06-06] VITALS (7 sets, daily range): BP systolic 109–126; BP diastolic 52–71; PULSE 69–100; RESP 18–24; TEMP 36–36.6; O2SAT 93–95
[2021-06-06] MEDS: Albuterol 2.5 MG/3 ML VIAL.NEB. INHALATION ×3 (07:28→19:12)
[2021-06-06] MEDS: Budesonide Respules 0.5 MG/2 ML AMPUL.NEB. INHALATION ×2 (07:28→19:12)
[2021-06-06 08:15] LABS: Absolute Lymphocyte Count 0.58 X10^3/uL (0.83-4.51); Absolute Neutrophil Count 11.5 X10^3/uL (2.0-7.7); Basophil# 0.01 X10^3/uL; Basophil% 0.1 % (0-1); Hematocrit 39.4 % (37-47); Hemoglobin 13.4 g/dL (12.0-15.0); Lymphocyte # 0.58 X10^3/ul (0.83-4.51); Lymphocyte % 4.4 % (19-41); Mean Corpuscular Hgb 28.9 pg (27.0-32.0); Mean Corpuscular Volume 84.9 fL (81-99); Mean Platelet Vol. 11.1 fl (6.2-12.0); Monocyte# 1.06 X10^3/uL; NRBC Flagged by Analyzer 0 % (0-5); Neutrophil # 11.51 X10^3/uL (2.7-7.7); POSITIVE DIFFERENTIAL YES; Platelet Count 293 K/mm3 (150-450); RBC Distribution Width CV 12.7 % (11.6-14.6); RBC Distribution Width SD 39.2 fl (35.1-43.9); Red Blood Count 4.64 M/mm3 (4.2-5.4); White Blood Count 13.2 K/mm3 (4.4-11.0)
[2021-06-06 08:17] LABS: Differential Indicated SCAN CRITERIA MET
--- NOTE | 2021-06-06 08:23 | PN.HOSP_ITS ---
Subjective Subjective Patient seen patient appears fatigued. Still remains on supplemental oxygen Objective Data Objective Data Vital Signs: Vital Signs Temp Pulse Resp BP Pulse Ox 97.1 F L 88 20 H 126/56 H 95 06/06/21 02:56 06/06/21 07:30 06/06/21 07:30 06/06/21 02:56 06/06/21 07:30 Oxygen Flow Rate (L/min) 2 Oxygen Delivery Method Nasal Cannula Weight: 94.3 kg Body Mass Index (BMI) 39.2 Intake & Output: Intake and Output for Last 24 Hours 06/04/21 06/05/21 06/06/21 23:59 23:59 23:59 Intake Total 393 / 393 Balance 393 / 393 Lab / Micro Data Result Diagrams: 06/06/21 07:45 06/06/21 07:45 Labs: Laboratory Results - last 24 hr 06/05/21 05:49: Alkaline Phosphatase 81, Lactate Dehydrogenase 215, Total Creat ine Kinase 54, C-React Prot Ext Range 15.40 H 06/05/21 09:35: Fibrinogen 475 H, D-Dimer Quant (PE/DVT) 0.37 06/05/21 09:35: Lactic Acid 1.0 06/05/21 09:35: Procalcitonin 0.15 H 06/06/21 07:45: WBC 13.2 H, RBC 4.64, Hgb 13.4, Hct 39.4, MCV 84.9, MCH 28.9, MCHC 34.0, RDW Std Deviation 39.2, RDW Coeff of Kesh[place] 12.7, Plt Count 293, MPV 11.1, Immature Gran % (Auto) 0.500, Neut % (Auto) 87.0 H, Lymph % (Auto) 4.4 L, [place] % (Auto) 8.0, Eos % (Auto) 0.0, Baso % (Auto) 0.1, Absolute Neuts (auto) 11.5 H, Absolute Lymphs (auto) 0.58 L, Nucleated RBC % 0 Micro: Microbiology 06/05/21 20:30 Urine, Clean Catch Streptococcus pneumoniae Antigen (M - Final 06/05/21 20:30 Urine, Clean Catch Legionella Antigen - Final 06/05/21 06:46 Nasal Secretion SARS-CoV-2 Antigen (Rapid) - Final SARS-CoV-2 (COVID 19) Physical Exam Narrative GENERAL: cooperative but appears ill looking HEENT: Atraumatic; EYES; Anicteric, Normal Conjunctiva NECK; supple, normal thyroid, RESPIRATORY: Diminished to auscultation CARDIOVASCULAR: Regular S1 S2, GI: soft, normoactive bowel sounds, : No Renal angle tenderness; EXTREMITIES: No edema, no clubbing, MUSCULOSKELETAL: no muscle waisting NEURO: Awake; no lateralizing signs. SKIN: No Rash PSYCH; Flat affect Assessment & Plan Assessment/Plan (1) COVID-19: PLAN: Patient is a 75-year-old lady admitted with shortness of breath 1. Acute hypoxic respiratory insufficiency secondary to SARS-CoV-2 pneumonia ?Patient has been admitted to regular nursing floor currently managed with supplemental oxygen titrated to keep saturation greater than 90. Patient was also placed on Decadron and remdesivir. Patient progress being monitored with markers of inflammation -06/06/2021;Patient seen patient appears fatigued. Still remains on supplemental oxyg 2. Diarrhea ?Suspected to be secondary to COVID-19 infection we will continue with monitoring. If persists will obtain stool studies to rule out other possible etiology 3. Hypothyroidism - Patient is on levothyroxine home dose continued 4. Paroxysmal atrial fibrillation ?Patient is on Tikosyn as well as beta-blockers. On systemic anticoagulation with apixaban 5. Obesity with BMI of 39.3 ?Weight loss advised 6. COPD ?Currently not in exacerbation aerosol treatments as needed did continue patient aerosol treatment including albuterol as needed as well as Symbicort 6. Hypogammaglobinemia ?Complicating patient's care. Patient apparently follows up with immunology as outpatient 8. Obstructive sleep apnea ?CPAP at night 9. Dyslipidemia ?Patient is on Zetia 10 mg daily did continue 10. Hypertension - Blood pressure controlled, home medications continued with dose adjustment as needed 11. DVT prophylaxis ?Patient is on apixaban no need for additional measures Charges/Coding Visit Charges Inpatient E&M: 683[address] [facility] L3
[2021-06-06 08:36] LABS: ALB/GLOB Ratio 0.7 RATIO (0.9-2.4); AST(SGOT) 15 U/L (15-37); Alanine Aminotransfer ALT/SGPT 24 U/L (13-56); Albumin, Serum 2.5 g/dL (3.2-5.0); Alkaline Phosphatase 71 U/L (45-117); Anion Gap 8 (5-15); BUN 38 mg/dL (7-18); BUN/Creat Ratio 45.9 RATIO (10-20); Calcium,Total 8.6 mg/dL (8.5-10.1); Chloride 103 mmol/L (98-107); Creatinine, Serum 0.83 mg/dL (0.55-1.02); EST Glomerular Filtration Rate 71 mL/min (>60); Est Glom Filt Rate - Afr Amer 86 mL/min (>60); Estimated Creatinine Clearance 43.51 ml/min; Globulin 3.6 g/dL (2.2-4.2); Glucose 356 mg/dL (74-106); Potassium 4.9 mmol/L (3.5-5.1); Protein, Total 6.1 g/dL (6.4-8.2); Sodium Level 135 mmol/L (136-145)
[2021-06-06] MEDS: Potassium Chloride Oral Tablet 20 MEQ PO ×3 (08:39→16:18)
[2021-06-06] MEDS: Famotidine 20 MG Tablet PO (08:44)
[2021-06-06] MEDS: APIXABAN 5 MG TABLET PO ×2 (08:44→22:32)
[2021-06-06] MEDS: dexAMETHasone 4 MG Tablet 6 MG PO (08:44)
[2021-06-06] MEDS: Carvedilol 12.5 MG Tablet PO ×2 (08:44→22:32)
[2021-06-06] MEDS: Levothyroxine 50 MCG Tablet PO (08:44)
[2021-06-06] MEDS: Furosemide 40 MG Tablet PO (08:45)
[2021-06-06] MEDS: Dofetilide 125 MCG Capsule PO ×2 (08:45→22:31)
[2021-06-06] MEDS: Ezetimibe 10 MG Tablet PO (08:45)
[2021-06-06] MEDS: 0.9% Saline Lock 10 ML Syringe IV (08:45)
[2021-06-06] MEDS: Gabapentin 100 MG Capsule PO ×2 (08:45→20:28)
[2021-06-06] MEDS: Montelukast 10 MG Tablet PO (08:46)
[2021-06-06] MEDS: Acetaminophen 325 MG Tablet 650 MG PO ×2 (12:06→20:28)
[2021-06-06] MEDS: proCHLORPERazine 10 MG/2 ML Vial IV (12:06)
--- NOTE | 2021-06-06 15:38 | CASEMGMT ---
JOSE M AGUIRRE assessment: Initial transition planning/care coordination assessment. JOSE M AGUIRRE introduced self and role at [facility], pt voices understanding and consents to assessment. Pt is A/Ox4 and answers all questions appropriately. Pt states is COVID positive but is doing fine at home and states no concerns with getting resources at home. Care providers, pharmacy, and demographics verified. Presentation: Pt c/o SOB since last week, chest tightness-pt states was started on antibx but it's not helping Admitting dx: COVID PCP: Marg[facility] Specialists: Immunology in [place]; Was with [place] [facility] but plans to switch to [facility] Preferred Pharmacy: [facility] Insurance: MCR A/B, [employer] Prescription Benefit: [employer] Living Will/HPOA: Pt states has HPOA and is aware that it is on file at [facility]. Pt states her , Michael Wynne, is HPOA. LNOK: Michael Wynne, Living Arrangements: Pt states lives with in 1 story condo and states no concerns at home. Pt states is independent with ADL's. Transportation: Pt states drives self or drives and states no transportation concerns. DME/HHC: Pt states has the following DME: cane, nebulizer, and cpap thru [facility]. Pt states would like [employer], if qualifies for home oxygen at discharge. Pt states has had HHC in the past and has been to IP rehab in the past. Pt states no concerns with going home at time of discharge. Pt is retired. Pt states does not smoke cigarettes or drink ETOH. Pt states no further concerns/needs. CM to follow for home oxygen testing and any further discharge planning/needs. Advised pt to ask for CM if any further questions/concerns/needs arise, voices understanding. Pt Goal: Home Plan: [place] JOSE M AGUIRRE
[2021-06-06] MEDS: MELATONIN 3 MG TABLET PO (22:35)
[2021-06-06] MEDS: guaiFENesin 10 ML UDC (200MG/10ML) 20 ML PO (22:38)
[2021-06-07 00:34] VITALS: BP 94/60; PULSE 95; RESP 22; TEMP 36.4; O2SAT 93
--- NOTE | 2021-06-07 00:50 | EKG12_ITS ---
Test Reason : CP Blood Pressure : / mmHG Vent. Rate : 096 BPM Atrial Rate : 096 BPM P-R Int : 000 ms QRS Dur : 058 ms QT Int : 356 ms P-R-T Axes : 000 019 073 degrees QTc Int : 449 ms Atrial-paced rhythm Nonspecific ST abnormality Abnormal ECG When compared with ECG of 05-JUN-2021 07:04, MANUAL COMPARISON REQUIRED, DATA IS UNCONFIRMED Confirmed by DAKSHA HERCULES, KATHLEEN ([id number]), school photograph editor SILVER TEJADA ([id number]) on 06/11/2021 8:36:38 AM Referred By: ANA Confirmed By:KAHTLEEN CROOKS MD
--- NOTE | 2021-06-07 00:53 | NURSING ---
Called lab for stat troponin and advised resp therapy that EKG was needed for chest pain.
[2021-06-07 01:49] LABS: Troponin-I HS 41 pg/mL (3.0-54.0)
[2021-06-07 02:46] VITALS: BP 90/61; PULSE 100; RESP 32; TEMP 36.4; O2SAT 94
[2021-06-07 02:54] VITALS: O2SAT 94
[2021-06-07] MEDS: Albuterol 2.5 MG/3 ML VIAL.NEB. INHALATION (03:04)
[2021-06-07 03:05] VITALS: PULSE 101; RESP 28
--- NOTE | 2021-06-07 06:16 | PCM.HOSP.N ---
Hospitalist Note CODE BLUE NOTE: Patient became pulseless with cardiac arrest at 4:40 AM, CPR initiated, patient bagged per RT, attempted initiation of epinephrine however patient access lost, IO requested and initial IO placed in the right proximal tibia and additional access placed in the left proximal tibia. Once access obtained epinephrine administered serially through the code, 2 doses of bicarb also administered as well as calcium chloride. Attempted intubation however significant hemoptysis onset with difficulty visualizing airway despite suction. Patient then continued to be bagged until able to obtain glide scope. Patient eventually successfully intubated with glide scope with visualization of the vocal cords and successful passage of the ET tube at 5:08 AM with 7.5 ET tube with positive color change. Patient also administered 2L NS during code. Patient rhythm during rhythm checks primarily PEA however patient with eventual resumption of pulse at 5:15 AM with rhythm noted to be atrial fibrillation with RVR. Patient administered amnio bolus at that time 300 mg x 1. Patient eventually progressed to a junctional rhythm at 5:30 AM. Patient spouse was contacted and presented to hospital. Discussed patient's status and her noted preference that if she passed again or lost her pulse that we let her pass naturally. Patient eventually became pulseless and at 5:40 AM. Time of : 5:40 AM Date of : 06/07/2021 Procedures Hospitalists Procedures: Other Procedure - See Report (BILLING CODE: [id number])
--- NOTE | 2021-06-07 08:05 | PCM.DEATH ---
Preliminary Cause of Preliminary Cause of Preliminary Cause of : COVID-19 pneumonia Date of Admission: 06/05/21 Principle Diagnosis Problem List: Active and Suspected Problems (Updated 06/05/21 @ 08:[address] Angie Staples MD) COVID-19 (Acute) Hospital Course Patient is a 75-year-old lady vaccinated against SARS-CoV-2 pneumonia who presented to the emergency department with shortness of breath. An assessment of COVID-19 pneumonia made patient admitted to regular nursing floor for management. Patient was apparently found at 0440 on 06/07/2021 without a pulse. An assessment of cardiac arrest made. Patient was initially resuscitated using ACLS with ROSC she however went back into cardiac arrest. Discussion had been held with patient's who who requested for patient not to be resuscitated. Patient was pronounced at 0540 on 06/07/2021 Visit Charges Inpatient E&M: [id number] Disch Hosp
== END 2021-06-07 08:05 | DRG 177 ==
LOC: ED 08:31 → MS3 23:04
PROVIDERS: Family Medicine; Admitting Provider Internal Medicine; Emergency Provider Emergency Medicine; PCP Internal Medicine; Visit Provider Internal Medicine
DX: U07.1 COVID-19 (principal); J12.82 Pneumonia due to coronavirus disease 2019; J96.01 Acute respiratory failure with hypoxia; J90 Pleural effusion, not elsewhere classified; J44.0 Chronic obstructive pulmonary disease with (acute) lower respiratory infection; D80.1 Nonfamilial hypogammaglobulinemia; R19.7 Diarrhea, unspecified; I49.3 Ventricular premature depolarization; E03.9 Hypothyroidism, unspecified; E11.9 Type 2 diabetes mellitus without complications; E78.5 Hyperlipidemia, unspecified; G47.33 Obstructive sleep apnea (adult) (pediatric); I10 Essential (primary) hypertension; E66.9 Obesity, unspecified; Z68.39 Body mass index [BMI] 39.0-39.9, adult; I25.10 Atherosclerotic heart disease of native coronary artery without angina pectoris; I25.5 Ischemic cardiomyopathy; I36.1 Nonrheumatic tricuspid (valve) insufficiency; I46.9 Cardiac arrest, cause unspecified; I48.0 Paroxysmal atrial fibrillation; G43.909 Migraine, unspecified, not intractable, without status migrainosus; Z95.1 Presence of aortocoronary bypass graft; Z90.49 Acquired absence of other specified parts of digestive tract; Z79.01 Long term (current) use of anticoagulants; Z79.899 Other long term (current) drug therapy; Z23 Encounter for immunization
CPT/HCPCS: 31500; 36415; 71045; 80048; 80053; 82550; 83605; 83615; 84075; 84145; 84484; 85025; 85379; 85384; 86140; 87426; 87449; 92950; 93005; 94640; 94799; 99251; 99285; G0008; J7030; J7050; 90686; A4216; G0463